=== PATIENT | male | born 1970 | race Caucasian/White ===

== ENCOUNTER → 2019-09-01 13:23 | Outpatient (BNVA) | payer MEDICARE, OTHER, SELFPAY | PROVIDERS: Family Provider Family Medicine; PCP Family Medicine; Visit Provider Anesthesiology | DX: M54.5 Low back pain (principal); M79.651 Pain in right thigh; M79.652 Pain in left thigh; Z79.891 Long term (current) use of opiate analgesic | CPT/HCPCS: 99214 ==

== ENCOUNTER → 2019-09-15 13:12 | Outpatient (BNVA) | payer MEDICARE, OTHER, SELFPAY | PROVIDERS: Family Provider Family Medicine; PCP Family Medicine; Visit Provider Nurse Practitioner | DX: F33.2 Major depressive disorder, recurrent severe without psychotic features (principal); F43.12 Post-traumatic stress disorder, chronic; F41.1 Generalized anxiety disorder | CPT/HCPCS: 99214 ==

== ENCOUNTER → 2019-11-03 08:23 | Outpatient (BNVA) | payer MEDICARE, OTHER, SELFPAY | PROVIDERS: Family Provider Family Medicine; PCP Family Medicine; Visit Provider Nurse Practitioner | DX: F43.12 Post-traumatic stress disorder, chronic (principal); M54.5 Low back pain; F41.1 Generalized anxiety disorder; Z79.891 Long term (current) use of opiate analgesic | CPT/HCPCS: 99214 ==

== ENCOUNTER 2020-01-10 15:29 | Emergency (ER) | payer MEDICARE, OTHER, SELFPAY ==
[2020-01-10 15:32] VITALS: BP 197/86; PULSE 85; RESP 22; TEMP 36.8; O2SAT 99; BMI 51.7
--- NOTE | 2020-01-10 15:49 | XRR_ITS ---
PROCEDURE INFORMATION: Exam: XR Chest, 1 View Exam date and time: 01/10/2020 3:50 PM Age: 49 years old Clinical indication: Dyspnea TECHNIQUE: Imaging protocol: XR of the chest Views: 1 view. COMPARISON: CR Chest 2 views* [id number] 03/15/2019 12:58 PM FINDINGS: Lungs: There is a small calcified granuloma in the left lower lobe which was better seen on the previous study. Lungs are otherwise clear. Pleural space: Unremarkable. No pleural effusion. No pneumothorax. Heart/Mediastinum: Heart is within normal limits of size. Bones/joints: There are postsurgical changes in the cervical spine. XR/XR chest 1V portable [id number] IMPRESSION: No acute infiltrate.
--- NOTE | 2020-01-10 16:01 | ED_ITS ---
HPI - URI/Sore Throat General: Chief Complaint: Upper Respiratory Infection Stated Complaint: sinus problems Time Seen by Provider: 01/10/20 15:32 History of Present Illness: HPI Narrative: Patient states he recently developed a sinus infection. He is seeing Dr. Tineo and was placed on doxycycline. Patient returns to the emergency room today stating that he does not believe the antibiotic is help that he still has symptoms. MD elicited complaint: cough, nasal congestion and sinus pain Consistency: constant Severity: severe Description of mucous: yellow, green and purulent Able to tolerate fluids by mouth: Yes Exacerbating factors: nothing Relieving factors: nothing Associated symptoms: Reports congestion, cough, headache(s), myalgias, nasal congestion and sinus pain Review of Systems General: Reports: 10 or more systems reviewed and unremarkable except in HPI and below ENMT: Reports: nasal congestion and sinus pain Neuro: Reports: headache(s) [facility] ED PFSH: Medical History Encounter for long-term use of opiate analgesic Generalized anxiety disorder Lumbar back pain Opioid contract exists Post-traumatic stress disorder, chronic Surgical History LAP-BAND surgery status Family History Other CAD (coronary artery disease) Cancer Diabetes Hypertension Psychiatric illness Social History Smoking and tobacco status: never smoked Alcohol intake: never History of recent travel: No Physical Exam Const: COMMON NORMALS: no acute distress, healthy appearing and well nourished GENERAL APPEARANCE: cooperative and well developed HENMT: COMMON NORMALS: normocephalic and atraumatic HEAD & SCALP: normal to inspection, normocephalic and atraumatic Eye: GENERAL EYE: appearance normal, both eyes and all related structures Neck/C-Spine: COMMON NORMALS: full ROM, no lymphadenopathy and no meningeal signs GENERAL: Yes normal visual inspection CERVICAL SPINE: Yes cervical ROM normal and Yes normal cervical lordosis Chest: COMMONS NORMALS: normal inspection of the chest and normal palpation of entire chest wall Resp: COMMON NORMALS: normal respiratory effort, clear to auscultation bilaterally and percussion normal AUSCULTATION: clear to auscultation bilaterally PERCUSSION: percussion normal Cardio: COMMON NORMALS: regular rate, regular rhythm, S1 normal heart sound present and S2 normal heart sound present JUGULAR VENOUS DISTENTION: no JVD PALPATION: normal PMI RATE: regular rate RHYTHM: regular rhythm HEART SOUNDS: S1 normal heart sound present and S2 normal heart sound present GI: COMMON NORMALS: Soft to palpation and No hepatosplenomegaly present INSPECTION: Yes normal to inspection PALPATION: Yes Soft to palpation and Yes No hepatosplenomegaly present PERCUSSION: normal to percussion : COMMON NORMALS: Yes no CVA tenderness BLADDER/KIDNEY EXAM: Yes no CVA tenderness Back/Pelvis: COMMON NORMALS: no CVA tenderness, thoracic and lumbar spine normal to inspection and thoraco-lumbar ROM normal Extremity: COMMON NORMALS: normal to inspection, full ROM and capillary refill normal Neuro: MENINGEAL SIGNS: Yes no meningeal signs Skin: COMMON NORMALS: no rashes or lesions noted, no wounds and turgor normal GENERAL SKIN EXAM: no rashes or lesions noted, elasticity normal and turgor normal LESIONS: no lesions RASHES: no rashes TRAUMA: no lacerations or abrasions HAIR: normal NAILS: normal Course Vital Signs: Vital signs: Vital Signs Temperature 98.3 F 01/10/20 15:32 Pulse Rate 85 01/10/20 15:32 Respiratory Rate 22 H 01/10/20 15:32 Blood Pressure 197/86 01/10/20 15:32 Pulse Oximetry 99 01/10/20 15:32 Discharge Plan Discharge Patient Disposition: Home, Self-Care Clinical Impression: Sinusitis Qualifiers: Sinusitis location: other Chronicity: acute Recurrence: recurrent Qualified Code(s): J01.81 - Other acute recurrent sinusitis Condition: Stable Prescriptions: New hydrocodone-acetaminophen 5-325 mg tablet 1 tab PO Q4H PRN (Reason: pain) Qty: 10 RF: 0 No Action lorazepam 0.5 mg tablet 1 mg PO DAILY PRNRF: 0 pregabalin [Lyrica] 200 mg capsule 200 mg PO DAILY RF: 0 metformin 500 mg tablet 500 mg PO BID RF: 0 furosemide [Lasix] 20 mg tablet 20 mg PO DAILY RF: 0 citalopram [Celexa] 40 mg tablet 40 mg PO DAILY Qty: 90 RF: 0 lamotrigine [Lamictal] 200 mg tablet 200 mg PO DAILY Qty: 90 RF: 0 mirtazapine [Remeron] 30 mg tablet 30 mg PO .HS Qty: 90 RF: 0 hydrocodone-acetaminophen 5-325 mg tablet 1 tab PO BID PRN (Reason: pain) 30 Days Qty: 60 RF: 0 hydrocodone-acetaminophen 5-325 mg tablet 1 tab PO BID 30 Days Qty: 60 RF: 0 Discharge Orders: Discharge Order (Routine); Ordered 01/10/20 Ordered By: Jimmie Soria Referrals: Agustina Whiting DO [Primary Care Provider] - Coding Level of Care Code ED Registered Account Administrator for Chg Fwd Exam Comprehensive
[2020-01-10] MEDS: cefTRIAXone 1,000 mg SDV 1000 MG IM (16:21)
[2020-01-10] MEDS: dexamethasone 10 mg/mL INJ IM (16:25)
[2020-01-10 16:42] VITALS: BP 183/90; PULSE 79; RESP 18; O2SAT 95
== END 2020-01-10 16:42 | disposition home or self-care (01) ==
PROVIDERS: Emergency Provider Family Medicine; PCP Family Medicine
DX: J01.81 Other acute recurrent sinusitis (principal)
CPT/HCPCS: 12345; 71045; 96372; 99281; 99283; J0696; J1100

== ENCOUNTER 2020-01-19 23:48 | Emergency (ER) | payer MEDICARE, OTHER, SELFPAY ==
[2020-01-19 23:53] VITALS: BP 180/95; PULSE 106; RESP 18; TEMP 37.3; O2SAT 95; BMI 50.1
--- NOTE | 2020-01-19 23:59 | XR_ITS ---
WS: [id number] RIGHT ANKLE: 3 VIEW(S) TECHNIQUE: AP, oblique(s) and lateral. HISTORY: right ankle pain and injury COMPARISON: 11/26/2014 Normal anatomic alignment with no fracture or dislocation. Well-corticated osseous density at the medial malleolus is similar to the prior study. No acute fract ures. No significant degenerative changes at the joint spaces. Mild edema around the ankle. Enthesopathy at the Achilles tendon. XR/XR ankle RT min 3V* [id number] IMPRESSION: 1. No acute fracture. 2. Mild soft tissue edema around the ankle.
--- NOTE | 2020-01-20 00:01 | ED_ITS ---
HPI - Extremity Problem General: Chief complaint: Extremity Injury, Lower Stated complaint: fall/right foot pain Time Seen by Provider: 01/20/20 00:00 History of Present Illness: HPI Narrative: Patient is a 49-year-old male comes to the ED with right foot and ankle pain. Patient has a past medical history of chronic back pain, diabetes with neuropathy. Patient says pain injury occurred just prior to arrival. He states he was out in his yard and he saw a snake and he was running from a snake and rolled his right foot and ankle. Patient says that he does not feel much pain in his right foot because he has neuropathy there and does not have much sensation to his right foot anyways. He noticed that he was having some swelling in his right foot and that is why he wanted to get it evaluated. Associated symptoms: Deny chest pain, fever(s) or rash Review of Systems Const: Denies: fever(s), chills or fatigue Eyes: Denies: change in vision or eye discomfort ENMT: Denies: throat pain, odynophagia, nasal discharge or nasal congestion Card: Denies: chest pain, palpitations, edema, swelling of feet/ankles, dyspnea on exertion or orthopnea Resp: Denies: dyspnea, productive cough or non-productive cough GI: Denies: abdominal pain, nausea, vomiting, diarrhea, constipation or hematochezia : Denies: flank pain, difficulty urinating, dysuria or hematuria Musc: Reports: extremity pain (mild right foot pain) and joint swelling (ankle and foot swelling after injury); Denies: neck pain, back pain or extremity swelling Skin/Breast: Denies: rash or new lesions Neuro: Denies: headache(s), numbness in extremities or weakness in extremities PFS ED PFSH: Medical History Encounter for long-term use of opiate analgesic Generalized anxiety disorder Lumbar back pain Opioid contract exists Post-traumatic stress disorder, chronic Surgical History LAP-BAND surgery status Family History Other CAD (coronary artery disease) Cancer Diabetes Hypertension Psychiatric illness Social History Smoking and tobacco status: never smoked Alcohol intake: never History of recent travel: No Physical Exam Const: COMMON NORMALS: no acute distress, patient oriented x3 and alert GENERAL APPEARANCE: cooperative and comfortable NUTRITIONAL APPEARANCE: obese HENMT: COMMON NORMALS: normocephalic HEAD & SCALP: normocephalic MOUTH: Normal oral and palatal mucosa present THROAT: posterior oropharynx normal and uvula midline Eye: COMMON NORMALS: Equal, round and reactive pupils present PUPIL: Yes Equal, round and reactive pupils present Neck/C-Spine: COMMON NORMALS: supple GENERAL: Yes normal visual inspection Resp: COMMON NORMALS: normal respiratory effort, No retractions, No use of accessory muscles and clear to auscultation bilaterally AUSCULTATION: clear to auscultation bilaterally Cardio: COMMON NORMALS: regular rate, regular rhythm, S1 normal heart sound present, S2 normal heart sound present, No gallops present (Cardio), No clicks present (Cardio), No murmurs present (Cardio) and Peripheral pulses 2+ throughout RATE: regular rate RHYTHM: regular rhythm HEART SOUNDS: S1 normal heart sound present and S2 normal heart sound present PERIPHERAL PULSES: Peripheral pulses 2+ throughout GI: COMMON NORMALS: Normal to inspection, nondistended, normoactive bowel sounds present, Soft to palpation, non-tender and no masses INSPECTION: Yes central obesity PALPATION: Yes Soft to palpation : COMMON NORMALS: Yes no CVA tenderness BLADDER/KIDNEY EXAM: Yes no CVA tenderness Back/Pelvis: COMMON NORMALS: no CVA tenderness Extremity: RIGHT LOWER EXTREMITY: Yes foot & digits Right ankle: Yes inspection (Medial side of ankle has some swelling. No visible deformity seen.), Yes palpation (Denies tenderness due to neuropathy.), Yes ROM (Fall) and Yes neurovascular exam (Pedal pulse 2+, poor sensation to feet due to neuropathy.) Neuro: COMMON NORMALS: patient oriented x3 and moves all extremities SENSORIUM/ORIENTATION: Yes alert Skin: COMMON NORMALS: no rashes or lesions noted GENERAL SKIN EXAM: no rashes or lesions noted and dry skin Course Vital Signs: Vital signs: Vital Signs Temperature 99.2 F 01/19/20 23:53 Pulse Rate 80 01/20/20 01:45 Respiratory Rate 19 H 01/20/20 01:45 Blood Pressure 176/83 01/20/20 01:45 Pulse Oximetry 96 01/20/20 01:45 MDM - Extremity (Nontraumatic) MDM Narrative: Medical decision making narrative: Patient is a 49-year-old male comes to the ED with right foot and ankle pain. Patient had an injury where he rolled his right foot. He has a past medical history of diabetes and diabetic neuropathy of both feet. Physical exam shows some swelling over the medial aspect of foot, and particularly over the medial malleolus area. Patient has no tenderness upon palpation to the neuropathy. X-ray of right ankle showed nondisplaced medial malleolus fracture of the tibia. Patient was then put in a short leg posterior splint and given crutches to help with ambulation. I placed an order with case management for patient to get Ortho referral. Patient was told to have no weightbearing until seen by Ortho. He currently has a prescription for hydrocodone and was told to continue taking that prescription as previously prescribed for pain. Patient understood and agreed with plan. Imaging Data^: Xray Ortho: Attestation: I personally reviewed and interpreted this imaging study as follows: My impression: Right foot x-ray showed no acute findings. Right ankle x-ray showed possible medial malleolus nondisplaced fracture. Pending final radiology report. Discharge Plan Discharge Patient Disposition: Home, Self-Care Clinical Impression: Fracture of medial malleolus of tibia Qualifiers: Encounter type: initial encounter Fracture type: closed Fracture alignment: nondisplaced Laterality: right Qualified Code(s): S82.54XA - Nondisplaced fracture of medial malleolus of right tibia, initial encounter for closed fracture Condition: Stable Prescriptions: No Action lorazepam 0.5 mg tablet 1 mg PO DAILY PRNRF: 0 pregabalin [Lyrica] 200 mg capsule 200 mg PO DAILY RF: 0 metformin 500 mg tablet 500 mg PO BID RF: 0 furosemide [Lasix] 20 mg tablet 20 mg PO DAILY RF: 0 citalopram [Celexa] 40 mg tablet 40 mg PO DAILY Qty: 90 RF: 0 lamotrigine [Lamictal] 200 mg tablet 200 mg PO DAILY Qty: 90 RF: 0 mirtazapine [Remeron] 30 mg tablet 30 mg PO .HS Qty: 90 RF: 0 hydrocodone-acetaminophen 5-325 mg tablet 1 tab PO BID PRN (Reason: pain) 30 Days Qty: 60 RF: 0 hydrocodone-acetaminophen 5-325 mg tablet 1 tab PO BID 30 Days Qty: 60 RF: 0 hydrocodone-acetaminophen 5-325 mg tablet 1 tab PO Q4H PRN (Reason: pain) Qty: 10 RF: 0 Discharge Orders: Discharge Order (Routine); Ordered 01/20/20 Ordered By: Torrey Walter Referrals: Agustina Whiting DO [Primary Care Provider] - Discharge Diet: Regular Discharge Activity: Limit activity as instructed Patient Instructions: Ankle Fracture (ED) Activity Restrictions/Additional Instructions: [facility] [place] clinic or case management should be contacting you in the next several days to set up an appointment. Use crutches and do not bear weight on right foot until seen by orthopedic doctor. Continue home medications as prescribed including previously prescribed hydrocodone to help with pain. Return to the ER or your medical provider if condition worsens. Please read and understand discharge instructions. If any questions, please ask. Discharge Date/Time: 01/20/20 01:49 Coding Level of Care Code ED Recreation Center Director for Carito Fwkadie Exam Comprehensive
--- NOTE | 2020-01-20 00:06 | XR_ITS ---
WS: [id number] RIGHT FOOT: 3 VIEW(S) TECHNIQUE: AP, oblique and lateral. HISTORY: right foot pain and injury COMPARISON: 11/03/2013 No acute fracture or dislocation. Mild hallux valgus. Normal tarsal/metatarsal alignment. No soft tissue abnormality or bone destruction. XR/XR foot RT min 3V* [id number] IMPRESSION: No acute fracture identified.
[2020-01-20 01:45] VITALS: BP 176/83; PULSE 80; RESP 19; O2SAT 96
--- NOTE | 2020-01-21 08:23 | DCPLANNER ---
Case manage had message to schedule a follow up appointment for patient with ortho. dietary services manager called the ortho clinic, spoke with Shani, gave clinic patients information. dietary services manager was told that patients information would be printed and reviewed. Clinic will call patient with appointment information.
--- NOTE | 2020-02-04 11:52 | DCPLANNER ---
Patient did attend appointment scheduled with ortho.
== END 2020-01-20 01:49 | disposition home or self-care (01) ==
PROVIDERS: Emergency Provider Physician Assistant; PCP Family Medicine
DX: S82.54XA Nondisplaced fracture of medial malleolus of right tibia, initial encounter for closed fracture (principal); X50.1XXA Overexertion from prolonged static or awkward postures, initial encounter; E11.40 Type 2 diabetes mellitus with diabetic neuropathy, unspecified
CPT/HCPCS: 12345; 29515; 73610; 73630; 99281; 99283

== ENCOUNTER → 2020-02-01 08:20 | Outpatient (BNVA) | payer MEDICARE, OTHER, SELFPAY | PROVIDERS: PCP Family Medicine; Referring Provider Physician Assistant; Visit Provider Podiatrist Foot & Ankle Surgery | DX: M25.571 Pain in right ankle and joints of right foot (principal) | CPT/HCPCS: 73610 ==

== ENCOUNTER → 2020-03-09 09:40 | Outpatient (BNVA) | payer MEDICARE, OTHER, SELFPAY | PROVIDERS: PCP Family Medicine; Visit Provider Nurse Practitioner | DX: F43.12 Post-traumatic stress disorder, chronic (principal); F41.1 Generalized anxiety disorder | CPT/HCPCS: 99213 ==

== ENCOUNTER 2020-05-14 23:16 | Emergency (ER) | payer MEDICARE, OTHER, SELFPAY ==
[2020-05-14 23:22] VITALS: BP 191/114; PULSE 122; RESP 32; TEMP 36.5; O2SAT 95; BMI 51.7
[2020-05-14 23:40] VITALS: BP 169/76; PULSE 90; RESP 33; O2SAT 95
[2020-05-15] VITALS (8 sets, daily range): BP systolic 109–169; BP diastolic 48–95; PULSE 82–95; RESP 13–31; TEMP 36.7; O2SAT 93–98
--- NOTE | 2020-05-15 | XRR_ITS ---
PROCEDURE INFORMATION: Exam: XR Chest, 1 View Exam date and time: 05/15/2020 12:25 AM Age: 49 years old Clinical indication: Cough and shortness of breath; Additional info: SOB TECHNIQUE: Imaging protocol: XR of the chest Views: 1 view. COMPARISON: CR XR chest 1V portable [id number] 01/10/2020 4:01 PM FINDINGS: Lungs: No consolidation. Pleural space: No pleural effusion. No pneumothorax. Heart/Mediastinum: No cardiomegaly. Bones/joints: Postop change of the cervical spine. XR/XR chest 1V portable [id number] IMPRESSION: 1. No acute cardiopulmonary disease demonstrated. 2. There is no interval change from the prior examination.
--- NOTE | 2020-05-15 | ECG_ITS ---
[facility] Test Date: 2020-05-14 Pat Name: Sergei Lucas Department: Room: Gender: Male [employer]: : 1970 Requested By: Remy Hirsch Order Number: [id number] Sergio MD: CRISTIAN HENRY Measurements Intervals [place] Rate: 99 P: 50 IL: 141 QRS: 11 QRSD: 97 T: 71 QT: 341 QTc: 439 Interpretive Statements SINUS RHYTHM POSSIBLE ANTERIOR MYOCARDIAL INFARCTION , OF INDETERMINATE AGE [30 ms Q WAVE IN V3/V4, OR R < 0.2 mV IN V4] Compared to ECG 03/15/2019 12:26:40 Myocardial infarct finding now present T-wave abnormality no longer present Electronically Signed On 05-15-2020 19:35:48 VEHICLE MAINTENANCE TECHNICIAN by CRISTIAN HENRY [id number]
[2020-05-15] MEDS: fentaNYL 50 mcg/mL INJ 2mL IVP (00:29)
[2020-05-15 00:35] LABS: Basophils # 0.1 10^3/uL (0.0-0.1); Basophils % 0.7 %; Eosinophils # 0.3 10^3/uL (0.0-0.8); Eosinophils % 2.6 %; Hematocrit 41.9 % (42.0-52.0); Hemoglobin 13.6 g/dL (11.7-16.6); Lymphocytes # 2.9 10^3/uL (0.8-4.8); Lymphocytes % 26.4 %; Mean Corpuscular HGB Conc 32.5 g/dL (30.0-36.0); Mean Corpuscular Hemoglobin 29.2 pg (28.0-34.0); Mean Corpuscular Volume 90.1 fL (80-94); Mean Platelet Volume 10.3 fL (7.4-10.4); Monocytes # 0.6 10^3/uL (0.2-0.9); Monocytes % 5.7 %; Neutrophils # 7.14 10^3/uL (1.8-7.7); Nucleated Red Blood Cells % 0 %; Platelet Count 257 10^3/cmm (130-400); Red Blood Count 4.65 10^6/uL (4.1-5.3); Red Cell Distribution Width 13.8 % (12.1-15.1); White Blood Count 11.2 10^3/uL (4.0-10.0)
[2020-05-15] MEDS: bumetanide 0.25 mg/mL SDV 10 mL 2 MG IV (00:35)
[2020-05-15 00:59] LABS: Troponin(5th) Baseline 18 ng/L (0-15)
--- NOTE | 2020-05-15 01:00 | ECG_ITS ---
[facility] Test Date: 2020-05-15 Pat Name: Sergei Lucas Department: Room: Gender: Male Brim Stitcher: : 1970 Requested By: Remy Hirsch Order Number: [id number] Reading MD: CRISTIAN HENRY Measurements Intervals [place] Rate: 89 P: 54 MD: 150 QRS: 31 QRSD: 91 T: 83 QT: 357 QTc: 436 Interpretive Statements SINUS RHYTHM NONSPECIFIC T-WAVE ABNORMALITY Compared to ECG 05/14/2020 23:30:08 T-wave abnormality now present Myocardial infarct finding no longer present Electronically Signed On 05-15-2020 19:36:23 COURIER by CRISTIAN HENRY [id number]
[2020-05-15 01:08] LABS: Alanine Aminotransferase 25 U/L (0-41); Albumin Level 3.8 g/dL (3.5-5.2); Alkaline Phosphatase 99 IU/L (40-130); Anion Gap 13.8 (5-19); Aspartate Amino Transferase 21 U/L (0-40); Blood Urea Nitrogen 13 mg/dL (6-20); Calcium 8.6 mg/dL (8.5-10.5); Carbon Dioxide 28 mmol/L (22-29); Chloride 105 mmol/L (98-107); Creatine Phosphokinase 199 U/L (39-308); Globulin 2.2 g/dL (1.3-4.6); Glomerular Filtration Rate 64.4 mL/min (90-130); Glucose 261 mg/dL (65-115); NT Pro B Type Natriuretic Pept 52 pg/mL (0-125); Osmolality Calculated 305 mOsm/kg (285-295); Potassium 3.8 mmol/L (3.5-5.1); Sodium 143 mmol/L (136-145); Total Bilirubin 0.2 mg/dL (0.15-1.2)
--- NOTE | 2020-05-15 01:10 | PC.NURSE ---
Helped patient to get up to stand at bedside to provide urine sample. Patient went from breathing 22 times per minute to 41 times per minute.
[2020-05-15 01:11] LABS: Troponin 5 2HR 17.32 ng/L (0-15)
--- NOTE | 2020-05-15 01:12 | PC.NURSE ---
Patient has been able to urinate 1000mL since administration of Bumex. Post void residual is from 270-300mL.
[2020-05-15 01:19] LABS: Troponin 5 2HR Delta -0.68 ABS# (0-10)
[2020-05-15 01:28] LABS: Bilirubin Urine Neg (Negative); Blood Urine Neg (Negative); Glucose Urine UA Norm (Normal); Ketones Urine Negative (Negative); Leukocyte Esterase Urine Negative (Negative); Nitrate Urine Negative (Negative); Protein Urine Trace (Negative); Urine Appearance Clear (CLEAR); Urine Color Straw (Yellow); Urobilinogen Urine Norm (Negative); pH Urine 5 (5-7)
[2020-05-15 01:29] LABS: Add Urine Microscopic? YES
--- NOTE | 2020-05-15 01:34 | ED_ITS ---
HPI - SOB/Dyspnea General: Chief Complaint: Shortness of Breath/Dyspnea Stated Complaint: SOB, SWELLING Time Seen by Provider: 05/14/20 23:35 History of Present Illness: HPI Narrative: 49-year-old male with a history of lower extremity edema. He presents with shortness of breath and worsening edema for the past couple of days. He notes he can only walk a short distance before getting short of breath, and his legs are swollen and painful. He was seen at a n outside facility yesterday, but worsened today. He also notes that despite taking increased doses of his water pill , he has not urinated much. He feels like he has to force his urine. MD elicited complaint: shortness of breath Onset (ago): day(s) Timing: intermittent Severity: moderate Exacerbating factors: exertion and talking Relieving factors: rest Known history of: diabetes Associated symptoms: Reports chest pain and extremity pain (Bilateral); Deny dizziness, fever(s), nausea, palpitations or vomiting Treatment prior to arrival: other Review of Systems Const: Denies: fever(s) Eyes: Denies: change in vision or blurry vision ENMT: Denies: odynophagia, bleeding gums, change in hearing or sinus pain Card: Reports: chest pain; Denies: palpitations Resp: Reports: dyspnea and non-productive cough; Denies: productive cough or wheezing GI: Denies: nausea or vomiting : Denies: difficulty urinating or hematuria Musc: Reports: extremity pain (Bilateral) Skin/Breast: Denies: rash or erythema Neuro: Denies: headache(s), dizziness or seizure-like activity Psych: Denies: anxiety PFS ED PFSH: Medical History (Updated 05/15/20 @ 03:00 by Remy Dillon DO) Encounter for long-term use of opiate analgesic Generalized anxiety disorder Lumbar back pain Opioid contract exists Post-traumatic stress disorder, chronic Surgical History LAP-BAND surgery status Family History Other CAD (coronary artery disease) Cancer Diabetes Hypertension Psychiatric illness Social History Smoking and tobacco status: never smoked Alcohol intake: never History of recent travel: No Physical Exam Const: GENERAL APPEARANCE: well developed ORIENTATION/CONSCIOUSNESS: Yes oriented to person, Yes oriented to place and Yes oriented to time HENMT: COMMON NORMALS: normocephalic, external ears normal and Normal external nose present HEAD & SCALP: normocephalic FACE & SINUS: normal facial exam NOSE: Normal external nose present and No nasal discharge present EXTERNAL EAR: Yes external ears normal Eye: COMMON NORMALS: Equal, round and reactive pupils present, EOMs intact bilaterally and conjunctivae normal EYELID: eyelids normal CONJUNCTIVA: Yes conjunctivae normal PUPIL: Yes Equal, round and reactive pupils present Neck/C-Spine: GENERAL: No tracheal deviation Chest: COMMONS NORMALS: normal inspection of the chest CHEST: No tenderness Resp: COMMON NORMALS: clear to auscultation bilaterally EFFORT & INSPECTION: Yes tachypneic, No respiratory distress, No retractions, No uses accessory muscles and No tracheal deviation AUSCULTATION: clear to auscultation bilaterally, no rhonchi, no wheezes and lung sounds not diminished Cardio: COMMON NORMALS: regular rate and regular rhythm RATE: regular rate and tachycardic RHYTHM: regular rhythm HEART SOUNDS: no murmurs PERIPHERAL PULSES: radial pulses present GI: INSPECTION: No abdominal distension AUSCULTATION: No Hyperactive bowel sounds present and No Hypoactive bowel sounds present PALPATION: No Guarding due to palpation present (GI) and No Rigid due to palpation PERCUSSION: no dullness to percussion and no tympanic to percussion Neuro: SENSORIUM/ORIENTATION: Yes oriented to person, Yes oriented to place and Yes oriented to time Psych: COMMON NORMALS: mental status grossly normal Skin: COMMON NORMALS: no rashes or lesions noted GENERAL SKIN EXAM: no rashes or lesions noted Course Vital Signs: Vital signs: Vital Signs Temperature 98.0 F 05/15/20 03:15 Pulse Rate 82 05/15/20 03:15 Respiratory Rate 25 H 05/15/20 03:15 Blood Pressure 141/62 05/15/20 03:15 Pulse Oximetry 98 05/15/20 03:15 MDM - SOB/Dyspnea MDM Narrative: Medical decision making narrative: 49-year-old male with lower extremity edema and shortness of breath. He had some chest discomfort as well. His troponin was minimally elevated, and did not rise at 2 hours. His EKG shows no acute ST changes. His BNP is essentially normal. His chest x-ray is unchanged from prior, and shows no acute changes. His D-dimer is not significan tly elevated. He has not had a fever. He was quite hypertensive on arrival with blood pressures in the 190s. He was given Bumex IV, nitro placed, and IV EVERARDO inhibitor. His blood pressure is currently 141/62. Heart rate 84. He satting 96% on room air. He is much more comfortable. He is put out over a liter of urine. His white blood cell count is minimally elevated at 11.2. He will be allowed home with double his normal Lasix dose for the next 3 days, will add EVERARDO inhibitor for stricter control of his blood pressure, and have him take pressures twice daily. He knows to return for any worsening symptoms. Lab Data: Labs: Lab Results 05/15/20 05/15/20 05/15/20 Range/Units 00:20 00:20 00:20 WBC 11.2 H (4.0-10.0) 10^3/ uL RBC 4.65 (4.1-5.3) 10^6/u L Hgb 13.6 (11.7-16.6) g/dL Hct 41.9 L (42.0-52.0) % MCV 90.1 (80-94) fL MCH 29.2 (28.0-34.0) pg MCHC 32.5 (30.0-36.0) g/dL RDW 13.8 (12.1-15.1) % Plt Count 257 (130-400) 10^3/c mm MPV 10.3 (7.4-10.4) fL Neut % (Auto) 64.0 % Lymph % (Auto) 26.4 % [place] % (Auto) 5.7 % Eos % (Auto) 2.6 % Baso % (Auto) 0.7 % Neut # (Auto) 7.14 (1.8-7.7) 10^3/u L Lymph # (Auto) 2.9 (0.8-4.8) 10^3/u L [place] # (Auto) 0.6 (0.2-0.9) 10^3/u L Eos # (Auto) 0.3 (0.0-0.8) 10^3/u L Baso # (Auto) 0.1 (0.0-0.1) 10^3/u L Nucleated RBC % (a uto) 0 % Nucleated RBCs # 0.0 /100WBC D-Dimer (0-0.59) ug/mIFE U Sodium 143 (136-145) mmol/L Potassium 3.8 (3.5-5.1) mmol/L Chloride 105 (98-107) mmol/L Carbon Dioxide 28 (22-29) mmol/L Anion Gap 13.8 (5-19) BUN 13 (6-20) mg/dL Creatinine 1.2 (0.7-1.2) mg/dL GFR Calculation 64.4 L (90-130) mL/min Glucose 261 H (65-115) mg/dL Calculated Osmolal ity 305 H (285-295) mOsm/k g Calcium 8.6 (8.5-10.5) mg/dL Total Bilirubin 0.2 (0.15-1.2) mg/dL AST 21 (0-40) U/L ALT 25 (0-41) U/L Alkaline Phosphata se 99 (40-130) IU/L Creatine Kinase 199 (39-308) U/L Troponin T Baselin e 18 H (0-15) ng/L Troponin T 120 Min [place] (0-15) ng/L Delta Troponin T (0-10) ABS# NT-Pro-B Natriuret Pep 52 (0-125) pg/mL Total Protein 6.0 L (6.6-8.7) g/dL Albumin 3.8 (3.5-5.2) g/dL Globulin 2.2 (1.3-4.6) g/dL Urine Color (Yellow) Urine Appearance (CLEAR) Urine pH (5-7) Ur Specific Gravit y (1.005-1.030) Urine Protein (Negative) Urine Glucose (UA) (Normal) Urine Ketones (Negative) Urine Blood (Negative) Urine Nitrate (Negative) Urine Bilirubin (Negative) Urine Urobilinogen (Negative) mg/dL Ur Leukocyte Karime ase (Negative) Urine RBC (0-2) /hpf Urine WBC (0-5) /hpf Ur Squamous Epith Cells (0-5) /hpf Amorphous Sediment Urine Bacteria (NONE) /hpf 05/15/20 05/15/20 05/15/20 Range/Units 00:20 01:06 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 WBC (4.0-10.0) 10^3/ uL RBC (4.1-5.3) 10^6/u L Hgb (11.7-16.6) g/dL Hct (42.0-52.0) % MCV (80-94) fL MCH (28.0-34.0) pg MCHC (30.0-36.0) g/dL RDW (12.1-15.1) % Plt Count (130-400) 10^3/c mm MPV (7.4-10.4) fL Neut % (Auto) % Lymph % (Auto) % [place] % (Auto) % Eos % (Auto) % Baso % (Auto) % Neut # (Auto) (1.8-7.7) 10^3/u L Lymph # (Auto) (0.8-4.8) 10^3/u L [place] # (Auto) (0.2-0.9) 10^3/u L Eos # (Auto) (0.0-0.8) 10^3/u L Baso # (Auto) (0.0-0.1) 10^3/u L Nucleated RBC % (a uto) % Nucleated RBCs # /100WBC D-Dimer 0.57 (0-0.59) ug/mIFE U Sodium (136-145) mmol/L Potassium (3.5-5.1) mmol/L Chloride (98-107) mmol/L Carbon Dioxide (22-29) mmol/L Anion Gap (5-19) BUN (6-20) mg/dL Creatinine (0.7-1.2) mg/dL GFR Calculation (90-130) mL/min Glucose (65-115) mg/dL Calculated Osmolal ity (285-295) mOsm/k g Calcium (8.5-10.5) mg/dL Total Bilirubin (0.15-1.2) mg/dL AST (0-40) U/L ALT (0-41) U/L Alkaline Phosphata se (40-130) IU/L Creatine Kinase (39-308) U/L Troponin T Baselin e (0-15) ng/L Troponin T 120 Min [place] 17.32 H (0-15) ng/L Delta Troponin T -0.68 L (0-10) ABS# NT-Pro-B Natriuret Pep (0-125) pg/mL Total Protein (6.6-8.7) g/dL Albumin (3.5-5.2) g/dL Globulin (1.3-4.6) g/dL Urine Color Straw (Yellow) Urine Appearance Clear (CLEAR) Urine pH 5 (5-7) Ur Specific Gravit y 1.010 (1.005-1.030) Urine Protein Trace (Negative) Urine Glucose (UA) Norm (Normal) Urine Ketones Negative (Negative) Urine Blood Neg (Negative) Urine Nitrate Negative (Negative) Urine Bilirubin Neg (Negative) Urine Urobilinogen Norm (Negative) mg/dL Ur Leukocyte Karime ase Negative (Negative) Urine RBC 0-4 H (0-2) /hpf Urine WBC 0-4 H (0-5) /hpf Ur Squamous Epith Cells 5-10 H (0-5) /hpf Amorphous Sediment Not Reportable Urine Bacteria Trace (NONE) /hpf Discharge Plan Discharge Patient Disposition: Home Clinical Impression: Bilateral lower extremity edema Hypertension Qualifiers: Hypertension type: essential hypertension Qualified Code(s): I10 - Essential (primary) hypertension Condition: Stable Prescriptions: New lisinopril 20 mg tablet 20 mg PO DAILY Qty: 30 RF: 0 Lasix 20 mg tablet 20 mg PO DAILY Qty: 30 RF: 0 No Action lorazepam 0.5 mg tablet 1 mg PO DAILY PRNRF: 0 pregabalin [Lyrica] 200 mg capsule 200 mg PO DAILY RF: 0 metformin 500 mg tablet 500 mg PO BID RF: 0 furosemide [Lasix] 20 mg tablet 20 mg PO DAILY RF: 0 hydrocodone-acetaminophen 5-325 mg tablet 1 tab PO BID PRN (Reason: pain) 30 Days Qty: 60 RF: 0 hydrocodone-acetaminophen 5-325 mg tablet 1 tab PO BID 30 Days Qty: 60 RF: 0 citalopram [Celexa] 40 mg tablet 40 mg PO DAILY Qty: 90 RF: 0 mirtazapine [Remeron] 30 mg tablet 30 mg PO .HS Qty: 90 RF: 0 lamotrigine [Lamictal] 200 mg tablet 200 mg PO DAILY Qty: 90 RF: 0 hydrocodone-acetaminophen 5-325 mg tablet 1 tab PO Q4H PRN (Reason: pain) Qty: 10 RF: 0 Discharge Orders: Discharge Order (Routine); Ordered 05/15/20 Ordered By: Remy Dillon Referrals: Agustina Whiting DO [Primary Care Provider] - 4-7 days Discharge Diet: Advance as tolerated and Diabetic Discharge Activity: Increase activity as tolerated Patient Instructions: Leg Edema (ED), Hypertension (ED) Activity Restrictions/Additional Instructions: Double your furosemide dose for the next 3 days, then back to 20 mg daily. New medication as directed daily. Monitor your blood pressure twice a day, and report numbers to your physician. Return for worsening shortness of breath despite treatment, fever greater than 100, chest discomfort, other concerning symptoms. 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
[2020-05-15] MEDS: enalaprilat 1.25 mg/mL Inj IVP (01:46)
[2020-05-15 01:51] LABS: RBC Urine 0-4 /hpf (0-2); WBC Urine 0-4 /hpf (0-5)
[2020-05-15 01:52] LABS: Add Urine Culture? No; Bacteria Urine TRACE /hpf
[2020-05-15] MEDS: nitroglycerin 1 gm/inch oint Pkt 1.5 INCH TOPICAL (01:57)
[2020-05-15] MEDS: FUROsemide 10 mg/mL SDV 4mL 40 MG IVP (02:12)
[2020-05-15 02:52] LABS: D Dimer 0.57 ug/mIFEU (0-0.59)
== END 2020-05-15 03:15 | disposition home or self-care (01) ==
PROVIDERS: Emergency Provider Emergency Medicine; PCP Family Medicine
DX: I10 Essential (primary) hypertension (principal); R60.0 Localized edema; Z79.84 Long term (current) use of oral hypoglycemic drugs
CPT/HCPCS: 12345; 36415; 71045; 80053; 81001; 82550; 83880; 84484; 85025; 85378; 93005; 96374; 96375; 96376; 99284; J1940; J3010; J3490

== ENCOUNTER 2020-06-20 19:43 | Emergency (ER) | payer MEDICARE, OTHER, SELFPAY ==
--- NOTE | 2020-06-20 19:48 | XR_ITS ---
WS: [id number] XR chest 1V portable [id number] REASON FOR EXAM: Chest pain FINDINGS: Mild cardiac enlargement. No active pulmonary parenchymal pleural disease. Spinal hardware in the lower cervical spine. Bony thorax is otherwise unremarkable. XR/XR chest 1V portable [id number] IMPRESSION: No acute chest abnormality.
[2020-06-20 19:49] VITALS: BP 191/102; PULSE 74; RESP 20; TEMP 36.8; O2SAT 97; BMI 52.0
--- NOTE | 2020-06-20 19:50 | ECG_ITS ---
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 Measurements Intervals [place] Rate: 70 P: 56 NE: 147 QRS: 22 QRSD: 102 T: 75 QT: 397 QTc: 430 Interpretive Statements SINUS RHYTHM NONSPECIFIC T-WAVE ABNORMALITY Compared to ECG 05/15/2020 01:23:15 No significant changes Electronically Signed On 06-21-2020 17:11:59 [employer]DEL [employer] by Britney Zamarripa M.D. [id number]
--- NOTE | 2020-06-20 20:03 | W.ED.CHESTPA ---
HPI - Chest Pain General: Chief Complaint: Chest Pain Stated Complaint: CP Time Seen by Provider: 06/20/20 19:47 Source: patient and EMS Mode of arrival: EMS Limitations: no limitations History of Present Illness: HPI narrative: Mr. Lucas is a very nice 50-year-old male who comes in complaining of chest pain. He indicates toward the right side of his chest. He states he was at home at rest when he felt like something was out of place in his chest. Pressed on the affected side and got sharp right-sided chest pains thereafter. Pain does not radiate. He does have some shortness of breath and has pain when he takes a deep breath. Denies cough, fever, nausea or vomiting, diaphoresis or any other related symptoms. Patient denies history of cardiac disease or DVT/PE. He states that he is never had anything like this before or anything similar to this in the past. EMS stated that they can reproduce the pain with palpation of his chest but still further algorithms gave aspirin and nitroglycerin. Patient does not relate whether he got any relief with this or not. Associated symptoms: Reports dyspnea; Deny abdominal pain, diaphoresis, fever(s), nausea, palpitations, syncope or vomiting Review of Systems Const: Denies: fever(s), chills, body aches, fatigue, malaise or diaphoresis Eyes: Denies: change in vision, blurry vision, photophobia, eye discomfort, eye discharge, eye redness or yellow eyes ENMT: Denies: throat pain, odynophagia, hoarseness, swelling of lips/tongue, ear or mastoid pain, ear discharge, change in hearing or nasal discharge Card: Reports: chest pain; Denies: palpitations, irregular heart rhythm, edema, lightheadedness, syncope, pre-syncope, dyspnea on exertion or orthopnea Resp: Reports: dyspnea; Denies: productive cough, non-productive cough, wheezing, hemoptysis or chest congestion GI: Denies: abdominal pain, nausea, vomiting, hematemesis, coffee ground emesis, heartburn, diarrhea, constipation, GI cramping, hematochezia or melena : Denies: flank pain, dysuria, urinary frequency, urinary urgency or hematuria Musc: Denies: neck pain, back pain, extremity pain, extremity swelling, joint pain, joint swelling, joint redness, joint warmth or joint stiffness Skin/Breast: Denies: rash, pruritus, erythema, skin pain or skin tenderness Neuro: Denies: headache(s), numbness in extremities, weakness in extremities, sensory changes, lack of coordination, difficulty walking, dizziness, vertigo, confusion, Slurred speech present or seizure-like activity Sukumar/Lymph: Denies: easy bruising, easy bleeding, petechiae, purpura or enlarged lymph nodes All/Imm: Denies: urticaria, throat swelling, tongue swelling, facial swelling or acute wheezing PFSH ED PFSH: Medical History (Updated 06/20/20 @ 21:18 by Senait Corcoran) Encounter for long-term use of opiate analgesic Generalized anxiety disorder Lumbar back pain Opioid contract exists Post-traumatic stress disorder, chronic Surgical History LAP-BAND surgery status Family History Other CAD (coronary artery disease) Cancer Diabetes Hypertension Psychiatric illness Social History Smoking and tobacco status: never smoked Alcohol intake: never History of recent travel: No Physical Exam Const: COMMON NORMALS: no acute distress, patient oriented x3, no limitations and alert GENERAL APPEARANCE: cooperative HENMT: COMMON NORMALS: normocephalic, atraumatic, external ears normal, EAC's normal and Normal external nose present HEAD & SCALP: normal to inspection, normocephalic and atraumatic FACE & SINUS: normal facial exam and face symmetric NOSE: Normal external nose present and Normal nares present EXTERNAL EAR: Yes external ears normal EXTERNAL AUDITORY CANAL: EAC's normal MOUTH: Normal oral and palatal mucosa present, lip normal and tongue normal Eye: COMMON NORMALS: Equal, round and reactive pupils present and conjunctivae normal GENERAL EYE: appearance normal, both eyes and all related structures ALIGNMENT: Yes alignment normal PERIORBITAL: periorbital findings normal EYELID: eyelids normal CONJUNCTIVA: Yes conjunctivae normal SCLERA: sclerae normal PUPIL: Yes Equal, round and reactive pupils present Neck/C-Spine: COMMON NORMALS: full ROM, no lymphadenopathy, supple, no meningeal signs and no JVD GENERAL: Yes normal visual inspection and Yes trachea midline Chest: COMMONS NORMALS: normal inspection of the chest and normal palpation of entire chest wall Resp: COMMON NORMALS: normal respiratory effort, No retractions, No use of accessory muscles and clear to auscultation bilaterally EFFORT & INSPECTION: Yes able to speak in complete sentences and Yes symmetric chest movement AUSCULTATION: clear to auscultation bilaterally, no crackles, no rales, no rhonchi and no wheezes Cardio: COMMON NORMALS: no JVD, regular rate, regular rhythm, S1 normal heart sound present and S2 normal heart sound present RATE: regular rate RHYTHM: regular rhythm HEART SOUNDS: S1 normal heart sound present, S2 normal heart sound present, no click, no gallops, no murmurs and no rubs GI: COMMON NORMALS: Soft to palpation and No hepatosplenomegaly present PALPATION: Yes Soft to palpation, No Tenderness to palpation present (GI), No Guarding due to palpation present (GI), No Rigid due to palpation, Yes No hepatosplenomegaly present, No Hernia present, No Palpable mass present and No Pulsatile mass present : COMMON NORMALS: Yes no CVA tenderness BLADDER/KIDNEY EXAM: Yes no CVA tenderness Back/Pelvis: COMMON NORMALS: no CVA tenderness, thoracic and lumbar spine normal to inspection, no thoracic nor lumbar tenderness and thoraco-lumbar ROM normal Extremity: COMMON NORMALS: normal to inspection, full ROM, capillary refill normal, no joint enlargement, no clubbing, cyanosis or edema and no calf tenderness Neuro: COMMON NORMALS: patient oriented x3, CN's II-XII intact bilaterally, moves all extremities, no focal motor deficits and no sensory deficits noted SENSORIUM/ORIENTATION: Yes alert MENINGEAL SIGNS: Yes no meningeal signs SPEECH: speech normal Psych: COMMON NORMALS: mental status grossly normal, Normal thought process present, cooperative, normal affect, speech normal and activity/motor behavior normal SPEECH: Yes normal speech THOUGHT PROCESS: Normal thought process present Skin: COMMON NORMALS: no rashes or lesions noted, turgor normal, no jaundice, no petechiae and no mottling GENERAL SKIN EXAM: no rashes or lesions noted and turgor normal Course Vital Signs: Vital signs: Vital Signs Temperature 98.2 F 06/20/20 19:49 Pulse Rate 71 06/20/20 22:21 Respiratory Rate 16 06/20/20 22:21 Blood Pressure 168/75 06/20/20 22:21 Pulse Oximetry 94 06/20/20 22:21 MDM - Chest Pain MDM Narrative: Medical decision making narrative: 2114 -the patient's pain is completely resolved at this time. Patient gives further history that he has had pain like this all his life and usually when he can pop the ribs in that area which he was trying to do tonight he will have resolution of his symptoms. Tonight what was different was he had sharp pains that followed thereafter. They have resolved gradually on their own. Patient states he has no further pain and no other symptoms. His pain was very atypical in nature. His first EKG and troponin are unremarkable as well as his D-dimer. I have recommended and offered to keep him for another EKG and troponin mostly for his risk factors but he refuses. He states he is feeling better he is insistent upon going home. The patient has been warned but he is also been welcomed to return. Lab Data: Labs: Lab Results 06/20/20 06/20/20 06/20/20 Range/Units 20:15 20:15 20:15 WBC 11.1 H (4.0-10.0) 10^3/ uL RBC 4.50 (4.1-5.3) 10^6/u L Hgb 13.1 (11.7-16.6) g/dL Hct 40.4 L (42.0-52.0) % MCV 89.8 (80-94) fL MCH 29.1 (28.0-34.0) pg MCHC 32.4 (30.0-36.0) g/dL RDW 14.0 (12.1-15.1) % Plt Count 246 (130-400) 10^3/c mm MPV 10.1 (7.4-10.4) fL Neut % (Auto) 59.3 % Lymph % (Auto) 32.5 % [place] % (Auto) 4.6 % Eos % (Auto) 2.3 % Baso % (Auto) 0.7 % Neut # (Auto) 6.58 (1.8-7.7) 10^3/u L Lymph # (Auto) 3.6 (0.8-4.8) 10^3/u L [place] # (Auto) 0.5 (0.2-0.9) 10^3/u L Eos # (Auto) 0.3 (0.0-0.8) 10^3/u L Baso # (Auto) 0.1 (0.0-0.1) 10^3/u L Nucleated RBC % (a uto) 0 % Nucleated RBCs # 0.0 /100WBC PT 12.80 (12.1-14.9) SECO NDS INR 0.94 (0.8-1.2) D-Dimer 0.53 (0-0.59) ug/mIFE U Sodium 147 H (136-145) mmol/L Potassium 3.8 (3.5-5.1) mmol/L Chloride 103 (98-107) mmol/L Carbon Dioxide 28 (22-29) mmol/L Anion Gap 19.8 H (5-19) BUN 10 (6-20) mg/dL Creatinine 0.9 (0.7-1.2) mg/dL GFR Calculation 89.3 L (90-130) mL/min Glucose 127 H (65-115) mg/dL Calculated Osmolal ity 305 H (285-295) mOsm/k g Lactic Acid (0.5-2.2) mmol/L Calcium 8.5 (8.5-10.5) mg/dL Magnesium 1.9 (1.7-2.3) mg/dL Total Bilirubin 0.3 (0.15-1.2) mg/dL AST 30 (0-40) U/L ALT 28 (0-41) U/L Alkaline Phosphata se 81 (40-130) IU/L Troponin T Baselin e (0-15) ng/L Troponin T 120 Min chilkat (0-15) ng/L Delta Troponin T (0-10) ABS# NT-Pro-B Natriuret Pep 92 (0-125) pg/mL Total Protein 5.8 L (6.6-8.7) g/dL Albumin 3.6 (3.5-5.2) g/dL Globulin 2.2 (1.3-4.6) g/dL Lipase 21 (13-60) U/L Urine Color (Yellow) Urine Appearance (CLEAR) Urine pH (5-7) Ur Specific Gravit y (1.005-1.030) Urine Protein (Negative) Urine Glucose (UA) (Normal) Urine Ketones (Negative) Urine Blood (Negative) Urine Nitrate (Negative) Urine Bilirubin (Negative) Urine Urobilinogen (Negative) mg/dL Ur Leukocyte Karime ase (Negative) 06/20/20 06/20/20 06/20/20 Range/Units 20:15 20:15 20:50 WBC (4.0-10.0) 10^3/ uL RBC (4.1-5.3) 10^6/u L Hgb (11.7-16.6) g/dL Hct (42.0-52.0) % MCV (80-94) fL MCH (28.0-34.0) pg MCHC (30.0-36.0) g/dL RDW (12.1-15.1) % Plt Count (130-400) 10^3/c mm MPV (7.4-10.4) fL Neut % (Auto) % Lymph % (Auto) % [place] % (Auto) % Eos % (Auto) % Baso % (Auto) % Neut # (Auto) (1.8-7.7) 10^3/u L Lymph # (Auto) (0.8-4.8) 10^3/u L [place] # (Auto) (0.2-0.9) 10^3/u L Eos # (Auto) (0.0-0.8) 10^3/u L Baso # (Auto) (0.0-0.1) 10^3/u L Nucleated RBC % (a uto) % Nucleated RBCs # /100WBC PT (12.1-14.9) SECO NDS INR (0.8-1.2) D-Dimer (0-0.59) ug/mIFE U Sodium (136-145) mmol/L Potassium (3.5-5.1) mmol/L Chloride (98-107) mmol/L Carbon Dioxide (22-29) mmol/L Anion Gap (5-19) BUN (6-20) mg/dL Creatinine (0.7-1.2) mg/dL GFR Calculation (90-130) mL/min Glucose (65-115) mg/dL Calculated Osmolal ity (285-295) mOsm/k g Lactic Acid 1.7 (0.5-2.2) mmol/L Calcium (8.5-10.5) mg/dL Magnesium (1.7-2.3) mg/dL Total Bilirubin (0.15-1.2) mg/dL AST (0-40) U/L ALT (0-41) U/L Alkaline Phosphata se (40-130) IU/L Troponin T Baselin e 14 (0-15) ng/L Troponin T 120 Min chilkat (0-15) ng/L Delta Troponin T (0-10) ABS# NT-Pro-B Natriuret Pep (0-125) pg/mL Total Protein (6.6-8.7) g/dL Albumin (3.5-5.2) g/dL Globulin (1.3-4.6) g/dL Lipase (13-60) U/L Urine Color Yellow (Yellow) Urine Appearance Clear (CLEAR) Urine pH 5.0 (5-7) Ur Specific Gravit y 1.020 (1.005-1.030) Urine Protein 3+ H (Negative) Urine Glucose (UA) Norm (Normal) Urine Ketones Negative (Negative) Urine Blood Neg (Negative) Urine Nitrate Negative (Negative) Urine Bilirubin Neg (Negative) Urine Urobilinogen Norm (Negative) mg/dL Ur Leukocyte Karime ase Negative (Negative) 06/20/20 Range/Units 21:35 WBC (4.0-10.0) 10^3/ uL RBC (4.1-5.3) 10^6/u L Hgb (11.7-16.6) g/dL Hct (42.0-52.0) % MCV (80-94) fL MCH (28.0-34.0) pg MCHC (30.0-36.0) g/dL RDW (12.1-15.1) % Plt Count (130-400) 10^3/c mm MPV (7.4-10.4) fL Neut % (Auto) % Lymph % (Auto) % [place] % (Auto) % Eos % (Auto) % Baso % (Auto) % Neut # (Auto) (1.8-7.7) 10^3/u L Lymph # (Auto) (0.8-4.8) 10^3/u L [place] # (Auto) (0.2-0.9) 10^3/u L Eos # (Auto) (0.0-0.8) 10^3/u L Baso # (Auto) (0.0-0.1) 10^3/u L Nucleated RBC % (a uto) % Nucleated RBCs # /100WBC PT (12.1-14.9) SECO NDS INR (0.8-1.2) D-Dimer (0-0.59) ug/mIFE U Sodium (136-145) mmol/L Potassium (3.5-5.1) mmol/L Chloride (98-107) mmol/L Carbon Dioxide (22-29) mmol/L Anion Gap (5-19) BUN (6-20) mg/dL Creatinine (0.7-1.2) mg/dL GFR Calculation (90-130) mL/min Glucose (65-115) mg/dL Calculated Osmolal ity (285-295) mOsm/k g Lactic Acid (0.5-2.2) mmol/L Calcium (8.5-10.5) mg/dL Magnesium (1.7-2.3) mg/dL Total Bilirubin (0.15-1.2) mg/dL AST (0-40) U/L ALT (0-41) U/L Alkaline Phosphata se (40-130) IU/L Troponin T Baselin e (0-15) ng/L Troponin T 120 Min chilkat 15.17 H (0-15) ng/L Delta Troponin T 1.17 (0-10) ABS# NT-Pro-B Natriuret Pep (0-125) pg/mL Total Protein (6.6-8.7) g/dL Albumin (3.5-5.2) g/dL Globulin (1.3-4.6) g/dL Lipase (13-60) U/L Urine Color (Yellow) Urine Appearance (CLEAR) Urine pH (5-7) Ur Specific Gravit y (1.005-1.030) Urine Protein (Negative) Urine Glucose (UA) (Normal) Urine Ketones (Negative) Urine Blood (Negative) Urine Nitrate (Negative) Urine Bilirubin (Negative) Urine Urobilinogen (Negative) mg/dL Ur Leukocyte Karime ase (Negative) Discharge Plan Discharge Patient Disposition: Home Clinical Impression: Costalchondritis Chest pain Qualifiers: Chest pain type: chest pain on breathing Qualified Code(s): R07.1 - Chest pain on breathing Condition: Stable Prescriptions: No Action lorazepam 0.5 mg tablet 1 mg PO DAILY PRN (Reason: unknown) RF: 0 pregabalin [Lyrica] 200 mg capsule 200 mg PO DAILY@1300 RF: 0 furosemide [Lasix] 20 mg tablet 20 mg PO DAILY@10,19 RF: 0 hydrocodone-acetaminophen 5-325 mg tablet 1 tab PO BID PRN (Reason: pain) 30 Days Qty: 60 RF: 0 krulxsek-dijbzkviu-QT 3.5-10,000-1 mg/mL-unit/mL-% solution See Rx Instructions .ROUTE .COMPLEX RF: 0 Humulin 70/30 U-100 Insulin 100 unit/mL (70-30) suspension See Rx Instructions .ROUTE .COMPLEX RF: 0 amoxicillin-pot clavulanate 875-125 mg tablet 1 tab PO BID@, RF: 0 Lamictal 200 mg tablet 200 mg PO DAILY@1000 RF: 0 Celexa 40 mg tablet 40 mg PO DAILY@1000 RF: 0 lisinopril 20 mg tablet 20 mg PO DAILY@1000 RF: 0 Remeron 30 mg tablet 30 mg PO BEDTIME@2200 RF: 0 Discharge Orders: Discharge ED (Routine); Ordered 06/20/20 Ordered By: Senait Corcoran Referrals: Agustina Whiting DO [Primary Care Provider] - 1-3 days Discharge Diet: Diabetic, Low Salt and Low Cholesterol Discharge Activity: Increase activity as tolerated Patient Instructions: Chest Pain (ED), Costochondritis (ED) Activity Restrictions/Additional Instructions: Please return to the ER immediately for any of the signs or symptoms listed on your discharge instruction sheets, worsening/changing of your symptoms, you are not getting better as quickly as expected, or for ANY other cause or concerns. You have been offered admission for further cardiac testing but have declined. Of course any heart problem can potentially be life-threatening so if your symptoms return, you become short of breath, you break out in a sweat for no reason, he began to vomit, you are more than welcome to return here at any time for further evaluation and care. Be certain to follow-up with your doctor as soon as possible for recheck. Coding Level of Care Code ED Advanced Practice Rn for Carito Fwd Exam Comprehensive
[2020-06-20 20:23] LABS: Basophils # 0.1 10^3/uL (0.0-0.1); Basophils % 0.7 %; Eosinophils # 0.3 10^3/uL (0.0-0.8); Eosinophils % 2.3 %; Hematocrit 40.4 % (42.0-52.0); Hemoglobin 13.1 g/dL (11.7-16.6); Lymphocytes # 3.6 10^3/uL (0.8-4.8); Lymphocytes % 32.5 %; Mean Corpuscular HGB Conc 32.4 g/dL (30.0-36.0); Mean Corpuscular Hemoglobin 29.1 pg (28.0-34.0); Mean Corpuscular Volume 89.8 fL (80-94); Mean Platelet Volume 10.1 fL (7.4-10.4); Monocytes # 0.5 10^3/uL (0.2-0.9); Monocytes % 4.6 %; Neutrophils # 6.58 10^3/uL (1.8-7.7); Neutrophils % 59.3 %; Nucleated Red Blood Cells % 0 %; Platelet Count 246 10^3/cmm (130-400); White Blood Count 11.1 10^3/uL (4.0-10.0)
[2020-06-20 20:37] LABS: INR 0.94 (0.8-1.2)
[2020-06-20 20:40] LABS: D Dimer 0.53 ug/mIFEU (0-0.59)
[2020-06-20 20:43] VITALS: BP 180/95; PULSE 85; RESP 14; O2SAT 95
[2020-06-20 20:43] LABS: Lactic Sepsis W/Reflex 1.7 mmol/L (0.5-2.2)
[2020-06-20 20:45] LABS: Troponin(5th) Baseline 14 ng/L (0-15)
[2020-06-20 20:51] LABS: Add Urine Microscopic? NO
[2020-06-20 20:53] LABS: Alanine Aminotransferase 28 U/L (0-41); Albumin Level 3.6 g/dL (3.5-5.2); Alkaline Phosphatase 81 IU/L (40-130); Anion Gap 19.8 (5-19); Aspartate Amino Transferase 30 U/L (0-40); Blood Urea Nitrogen 10 mg/dL (6-20); Calcium 8.5 mg/dL (8.5-10.5); Carbon Dioxide 28 mmol/L (22-29); Chloride 103 mmol/L (98-107); Globulin 2.2 g/dL (1.3-4.6); Glomerular Filtration Rate 89.3 mL/min (90-130); Glucose 127 mg/dL (65-115); Lipase 21 U/L (13-60); Magnesium 1.9 mg/dL (1.7-2.3); NT Pro B Type Natriuretic Pept 92 pg/mL (0-125); Osmolality Calculated 305 mOsm/kg (285-295); Potassium 3.8 mmol/L (3.5-5.1); Sodium 147 mmol/L (136-145); Total Bilirubin 0.3 mg/dL (0.15-1.2); Total Protein 5.8 g/dL (6.6-8.7)
[2020-06-20 21:02] LABS: Urine Appearance Clear (CLEAR); Urine Color Yellow (Yellow)
[2020-06-20 21:03] LABS: Bilirubin Urine Neg (Negative); Blood Urine Neg (Negative); Glucose Urine UA Norm (Normal); Ketones Urine Negative (Negative); Leukocyte Esterase Urine Negative (Negative); Nitrate Urine Negative (Negative); Protein Urine 3+ (Negative); Urobilinogen Urine Norm (Negative)
[2020-06-20 22:07] LABS: Troponin 5 2HR 15.17 ng/L (0-15); Troponin 5 2HR Delta 1.17 ABS# (0-10)
[2020-06-20 22:21] VITALS: BP 168/75; PULSE 71; RESP 16; O2SAT 94
== END 2020-06-20 22:21 | disposition home or self-care (01) ==
PROVIDERS: Emergency Provider Emergency Medicine; PCP Family Medicine
DX: M94.0 Chondrocostal junction syndrome [Tietze] (principal); R07.1 Chest pain on breathing; Z79.4 Long term (current) use of insulin
CPT/HCPCS: 12345; 71045; 80053; 81003; 83605; 83690; 83735; 83880; 84484; 85025; 85378; 85610; 93005; 99282; 99283

== ENCOUNTER → 2020-08-11 09:52 | Outpatient (BNVA) | payer MEDICARE, OTHER, SELFPAY | PROVIDERS: PCP Family Medicine; Visit Provider Nurse Practitioner | DX: F43.12 Post-traumatic stress disorder, chronic (principal); F41.1 Generalized anxiety disorder | CPT/HCPCS: 99214 ==

== ENCOUNTER → 2020-09-16 07:56 | Outpatient (BNVA) | payer MEDICARE, OTHER, SELFPAY | PROVIDERS: PCP Family Medicine; Visit Provider Nurse Practitioner | DX: F43.12 Post-traumatic stress disorder, chronic (principal); F41.1 Generalized anxiety disorder | CPT/HCPCS: 99214 ==

== ENCOUNTER → 2020-12-15 14:43 | Outpatient (BNVA) | payer MEDICARE, OTHER, SELFPAY | PROVIDERS: PCP Family Medicine; Visit Provider Nurse Practitioner | DX: F41.1 Generalized anxiety disorder (principal); F43.12 Post-traumatic stress disorder, chronic | CPT/HCPCS: 99214 ==

== ENCOUNTER 2021-03-04 23:20 | Emergency (ER) | payer MEDICARE, OTHER, SELFPAY ==
[2021-03-04 23:50] VITALS: BP 174/82; PULSE 72; RESP 18; TEMP 36.7; O2SAT 96; BMI 49.4
--- NOTE | 2021-03-05 01:54 | CTR_ITS ---
PROCEDURE INFORMATION: Exam: CT Abdomen And Pelvis With Contrast Exam date and time: 03/05/2021 1:54 AM Age: 50 years old Clinical indication: Abdominal pain; Localized; Right lower quadrant (rlq); Prior surgery; Surgery date: 6+ months; Surgery type: Back; Additional info: Ruq pain TECHNIQUE: Imaging protocol: Computed tomography of the abdomen and pelvis with contrast. Radiation optimization: All CT scans at this facility use at least one of these dose optimization techniques: automated exposure control; mA and/or kV adjustment per patient size (includes targeted exams where dose is matched to clinical indication); or iterative reconstruction. Contrast material: OMNI 300; Contrast volume: 95 ml; Contrast route: INTRAVENOUS (IV); COMPARISON: CT abdomen pelvis w con* [id number] 11/28/2017 12:35 AM RADIATION DOSE METRICS: Total DLP (mGy-cm): 1839.81 FINDINGS: Lungs: There are multiple calcified pulmonary nodules consistent with prior granulomatous disease. Mediastinal space: Small hiatal hernia. Liver: Normal. No mass. Gallbladder and bile ducts: No wall thickening, pericholecystic fluid or stones. Pancreas: Normal. No ductal dilation. Spleen: Normal. No splenomegaly. Adrenal glands: Normal. No mass. Kidneys and ureters: Normal. No hydronephrosis. Stomach and bowel: Unremarkable. No obstruction. No mucosal thickening. Appendix: No evidence of appendicitis. Intraperitoneal space: Unremarkable. No free air. No significant fluid collection. Vasculature: Unremarkable. No abdominal aortic aneurysm. Lymph nodes: Unremarkable. No enlarged lymph nodes. Urinary bladder: Unremarkable as visualized. Reproductive: Unremarkable as visualized. Bones/joints: Intact posterior fusion hardware L4-L5. Soft tissues: Unremarkable. Other findings: There is a laparoscopic band in good position. CT/CT abdomen pelvis w con* [id number] IMPRESSION: 1. No cause for acute pain is identified. 2. There is a laparoscopic band in good position. 3. Small hiatal hernia. Radiation Dose CTDIVOL = (mGy): DLP = 1839.81 (mGy-cm)
[2021-03-05 02:01] LABS: Basophils # 0.1 10^3/uL (0.0-0.1); Basophils % 0.6 %; Eosinophils # 0.3 10^3/uL (0.0-0.8); Eosinophils % 1.8 %; Hematocrit 39.2 % (42.0-52.0); Hemoglobin 12.5 g/dL (11.7-16.6); Lymphocytes # 3.3 10^3/uL (0.8-4.8); Lymphocytes % 21.2 %; Mean Corpuscular HGB Conc 31.9 g/dL (30.0-36.0); Mean Corpuscular Hemoglobin 29.1 pg (28.0-34.0); Mean Corpuscular Volume 91.2 fl (80-94); Mean Platelet Volume 10.4 fL (7.4-10.4); Monocytes # 0.7 10^3/uL (0.2-0.9); Monocytes % 4.7 %; Neutrophils # 11.09 10^3/uL (1.8-7.7); Neutrophils % 70.6 %; Nucleated Red Blood Cells % 0 %; Platelet Count 271 10^3/cmm (130-400); Red Cell Distribution Width 14.5 % (12.1-15.1); White Blood Count 15.7 10^3/uL (4.0-10.0)
[2021-03-05] MEDS: ondansetron 2 mg/ML SDV 2 mL 4 MG IVP (02:12)
[2021-03-05] MEDS: ketorolac 30 mg/mL INJ 15 MG IVP (02:12)
[2021-03-05 02:25] LABS: Alanine Aminotransferase 16 U/L (0-41); Albumin Level 3.8 g/dL (3.5-5.2); Alkaline Phosphatase 92 IU/L (40-130); Anion Gap 14.8 (5-19); Aspartate Amino Transferase 18 U/L (0-40); Blood Urea Nitrogen 13 mg/dL (6-20); C Reactive Protein 50.7 mg/L (0.0-4.9); Calcium 8.9 mg/dL (8.5-10.5); Carbon Dioxide 27 mmol/L (22-29); Chloride 107 mmol/L (98-107); Globulin 3.1 g/dL (1.3-4.6); Glomerular Filtration Rate 89.3 mL/min (90-130); Glucose 58 mg/dL (65-115); Lipase 17 U/L (13-60); Osmolality Calculated 298 mOsm/kg (285-295); Potassium 3.8 mmol/L (3.5-5.1); Sodium 145 mmol/L (136-145); Total Bilirubin 0.3 mg/dL (0.15-1.2); Total Protein 6.9 g/dL (6.6-8.7)
[2021-03-05] MEDS: iohexol 300 mg/mL 100 mL Btl IV (02:30)
[2021-03-05 02:40] LABS: Add Urine Microscopic? YES; Bilirubin Urine Neg (Negative); Blood Urine Neg (Negative); Glucose Urine UA Norm (Normal); Ketones Urine Negative (Negative); Leukocyte Esterase Urine Negative (Negative); Nitrate Urine Negative (Negative); Protein Urine 1+ (Negative); Urine Appearance Clear (CLEAR); Urine Color Yellow (Yellow); Urobilinogen Urine Norm (Negative); pH Urine 5 (5-7)
[2021-03-05 02:50] LABS: Add Urine Culture? No; Bacteria Urine 1+ /hpf; Mucus Urine 3+ /hpf; RBC Urine 0-4 /hpf (0-2); Squamous Epithelial Cell Urine 15-25 /hpf (0-5); WBC Urine 0-4 /hpf (0-5)
[2021-03-05] MEDS: dextrose 10% 250 ML 500 ML IV (03:07)
--- NOTE | 2021-03-05 03:24 | ED_ITS ---
HPI - Abdominal Pain General: Chief Complaint: Abdominal Pain Stated Complaint: r sided abd pain Time Seen by Provider: 03/05/21 01:38 History of Present Illness: HPI narrative: 50-year-old with right-sided abdominal pain since around 4 PM. He notes he has not thrown up, no diarrhea. Very little nausea. No fever. He has not had this type of pain before. He had a gastric sleeve placed at 1 point, otherwise no belly surgeries. MD elicited complaint: abdominal pain Pertinent past history: other Onset (ago): hour(s) Pain Consistency: constant Location: RUQ Quality: cramping and stabbing Radiation: RUQ Migration to: no migration Exacerbating factors: movement Relieving factors: nothing Associated Symptoms: Reports nausea (Very little); Denies change in stool character, constipation, diarrhea, dysuria, fever(s), hematochezia and vomiting Review of Systems Const: Denies: fever(s) Card: Denies: chest pain or palpitations Resp: Denies: dyspnea or productive cough GI: Reports: nausea (Very little); Denies: vomiting, diarrhea, constipation, change in stool character or hematochezia : Denies: dysuria Neuro: Denies: headache(s) PFSH ED PFSH: Medical History (Updated 03/05/21 @ 03:26 by Remy Dillon DO) Encounter for long-term use of opiate analgesic Generalized anxiety disorder Lumbar back pain Opioid contract exists Post-traumatic stress disorder, chronic Surgical History LAP-BAND surgery status Family History Other CAD (coronary artery disease) Cancer Diabetes Hypertension Psychiatric illness Social History Smoking and tobacco status: never smoked Alcohol intake: never History of recent travel: No Physical Exam Const: COMMON NORMALS: no acute distress HENMT: COMMON NORMALS: normocephalic HEAD & SCALP: normocephalic Chest: COMMONS NORMALS: normal inspection of the chest Resp: COMMON NORMALS: normal respiratory effort, No use of accessory muscles and clear to auscultation bilaterally AUSCULTATION: clear to auscultation bilaterally Cardio: COMMON NORMALS: regular rate and regular rhythm RATE: regular rate RHYTHM: regular rhythm GI: COMMON NORMALS: Normal to inspection, nondistended, normoactive bowel sounds present INSPECTION: Yes central obesity PALPATION: Yes Tenderness to palpation present (GI) Details: RUQ Neuro: GIGI COMA SCALE: document GCS findings Gigi coma scale eye opening: Spontaneous Gigi coma scale verbal response: Orientated [place] coma scale motor response: Obey commands [place] coma scale total score: 15 Course Vital Signs: Vital signs: Vital Signs Temperature 98.1 F 03/04/21 23:50 Pulse Rate 66 03/05/21 04:00 Respiratory Rate 18 03/05/21 04:00 Blood Pressure 164/67 03/05/21 04:00 Pulse Oximetry 96 03/05/21 04:00 MDM - Abdominal Pain MDM Narrative: Medical decision making narrative: Tenderness in right upper quadrant on exam with bed shake tenderness as well. White blood cell count is 15.7. Patient's glucose was 58, he was given an infusion of 250 mL of D10 with improvement in his sugar was appropriate. CT did not reveal a cause of his belly discomfort, noting a normal gallbladder wall with normal ducts. His symptoms are essentially resolved after medication here. Lab Data: Labs: Lab Results 03/05/21 03/05/21 03/05/21 Range/Units 01:45 01:45 02:00 WBC 15.7 H (4.0-10.0) 10^3/ uL RBC 4.30 (4.1-5.3) 10^6/u L Hgb 12.5 (11.7-16.6) g/dL Hct 39.2 L (42.0-52.0) % MCV 91.2 (80-94) fl MCH 29.1 (28.0-34.0) pg MCHC 31.9 (30.0-36.0) g/dL RDW 14.5 (12.1-15.1) % Plt Count 271 (130-400) 10^3/c mm MPV 10.4 (7.4-10.4) fL Neut % (Auto) 70.6 % Lymph % (Auto) 21.2 % [place] % (Auto) 4.7 % Eos % (Auto) 1.8 % Baso % (Auto) 0.6 % Neut # (Auto) 11.09 H (1.8-7.7) 10^3/u L Lymph # (Auto) 3.3 (0.8-4.8) 10^3/u L [place] # (Auto) 0.7 (0.2-0.9) 10^3/u L Eos # (Auto) 0.3 (0.0-0.8) 10^3/u L Baso # (Auto) 0.1 (0.0-0.1) 10^3/u L Nucleated RBC % (a uto) 0 % Nucleated RBCs # 0.0 /100WBC Sodium 145 (136-145) mmol/L Potassium 3.8 (3.5-5.1) mmol/L Chloride 107 (98-107) mmol/L Carbon Dioxide 27 (22-29) mmol/L Anion Gap 14.8 (5-19) BUN 13 (6-20) mg/dL Creatinine 0.9 (0.7-1.2) mg/dL GFR Calculation 89.3 L (90-130) mL/min Glucose 58 L (65-115) mg/dL POC Glucose (70-110) mg/dL Calculated Osmolal ity 298 H (285-295) mOsm/k g Calcium 8.9 (8.5-10.5) mg/dL Total Bilirubin 0.3 (0.15-1.2) mg/dL AST 18 (0-40) U/L ALT 16 (0-41) U/L Alkaline Phosphata se 92 (40-130) IU/L C-Reactive Protein 50.7 H (0.0-4.9) mg/L Total Protein 6.9 (6.6-8.7) g/dL Albumin 3.8 (3.5-5.2) g/dL Globulin 3.1 (1.3-4.6) g/dL Lipase 17 (13-60) U/L Urine Color Yellow (Yellow) Urine Appearance Clear (CLEAR) Urine pH 5 (5-7) Ur Specific Gravit y 1.020 (1.005-1.030) Urine Protein 1+ H (Negative) Urine Glucose (UA) Norm (Normal) Urine Ketones Negative (Negative) Urine Blood Neg (Negative) Urine Nitrate Negative (Negative) Urine Bilirubin Neg (Negative) Urine Urobilinogen Norm (Negative) mg/dL Ur Leukocyte Karime ase Negative (Negative) Urine RBC 0-4 H (0-2) /hpf Urine WBC 0-4 H (0-5) /hpf Ur Squamous Epith Cells 15-25 H (0-5) /hpf Amorphous Sediment Not Reportable Urine Bacteria 1+ H (NONE) /hpf Urine Mucus 3+ /hpf 03/05/21 Range/Units 03:49 WBC (4.0-10.0) 10^3/ uL RBC (4.1-5.3) 10^6/u L Hgb (11.7-16.6) g/dL Hct (42.0-52.0) % MCV (80-94) fl MCH (28.0-34.0) pg MCHC (30.0-36.0) g/dL RDW (12.1-15.1) % Plt Count (130-400) 10^3/c mm MPV (7.4-10.4) fL Neut % (Auto) % Lymph % (Auto) % [place] % (Auto) % Eos % (Auto) % Baso % (Auto) % Neut # (Auto) (1.8-7.7) 10^3/u L Lymph # (Auto) (0.8-4.8) 10^3/u L [place] # (Auto) (0.2-0.9) 10^3/u L Eos # (Auto) (0.0-0.8) 10^3/u L Baso # (Auto) (0.0-0.1) 10^3/u L Nucleated RBC % (a uto) % Nucleated RBCs # /100WBC Sodium (136-145) mmol/L Potassium (3.5-5.1) mmol/L Chloride (98-107) mmol/L Carbon Dioxide (22-29) mmol/L Anion Gap (5-19) BUN (6-20) mg/dL Creatinine (0.7-1.2) mg/dL GFR Calculation (90-130) mL/min Glucose (65-115) mg/dL POC Glucose 123 H (70-110) mg/dL Calculated Osmolal ity (285-295) mOsm/k g Calcium (8.5-10.5) mg/dL Total Bilirubin (0.15-1.2) mg/dL AST (0-40) U/L ALT (0-41) U/L Alkaline Phosphata se (40-130) IU/L C-Reactive Protein (0.0-4.9) mg/L Total Protein (6.6-8.7) g/dL Albumin (3.5-5.2) g/dL Globulin (1.3-4.6) g/dL Lipase (13-60) U/L Urine Color (Yellow) Urine Appearance (CLEAR) Urine pH (5-7) Ur Specific Gravit y (1.005-1.030) Urine Protein (Negative) Urine Glucose (UA) (Normal) Urine Ketones (Negative) Urine Blood (Negative) Urine Nitrate (Negative) Urine Bilirubin (Negative) Urine Urobilinogen (Negative) mg/dL Ur Leukocyte Karime ase (Negative) Urine RBC (0-2) /hpf Urine WBC (0-5) /hpf Ur Squamous Epith Cells (0-5) /hpf Amorphous Sediment Urine Bacteria (NONE) /hpf Urine Mucus /hpf Discharge Plan Discharge Patient Disposition: Home Clinical Impression: Abdominal pain Qualifiers: Abdominal location: right upper quadrant Qualified Code(s): R10.11 - Right upper quadrant pain Condition: Stable Prescriptions: New ketorolac 10 mg tablet 10 mg PO TID PRN (Reason: pain) Qty: 10 RF: 0 No Action lorazepam 0.5 mg tablet 1 mg PO DAILY PRN (Reason: unknown) RF: 0 pregabalin [Lyrica] 200 mg capsule 200 mg PO DAILY@1300 RF: 0 furosemide [Lasix] 20 mg tablet 20 mg PO DAILY@10,19 RF: 0 hydrocodone-acetaminophen 5-325 mg tablet 1 tab PO BID PRN (Reason: pain) 30 Days Qty: 60 RF: 0 trazodone 50 mg tablet 50 mg PO .HS Qty: 30 RF: 1 Celexa 40 mg tablet 40 mg PO DAILY@1000 Qty: 30 RF: 1 Lamictal 200 mg tablet 200 mg PO DAILY@1000 Qty: 30 RF: 1 prazosin 2 mg capsule 2 mg PO .HS Qty: 30 RF: 1 cephalexin [Keflex] 500 mg capsule 500 mg PO BID Qty: 14 RF: 0 mupirocin 2 % ointment 1 applic topical BID Qty: 22 RF: 0 mupirocin 2 % ointment 1 applic topical BID Qty: 22 RF: 0 nnhpmvbd-qefnatwrr-JL 3.5-10,000-1 mg/mL-unit/mL-% solution See Rx Instructions .ROUTE .COMPLEX RF: 0 Humulin 70/30 U-100 Insulin 100 unit/mL (70-30) suspension See Rx Instructions .ROUTE .COMPLEX RF: 0 lisinopril 20 mg tablet 20 mg PO DAILY@1000 RF: 0 Discharge Orders: Discharge ED (Routine); Ordered 03/05/21 Ordered By: Remy Dillon Referrals: Agustina Whiting DO [Primary Care Provider] - 4-7 days Discharge Diet: Advance as tolerated Discharge Activity: Increase activity as tolerated Patient Instructions: Abdominal Pain (ED), Opioid Safety Activity Restrictions/Additional Instructions: Follow a liquid diet for 24 hours, then advance as tolerated. Return for fever greater than 100, worsening pain despite treatment, vomiting liquids or medications, any other concerning symptoms. Coding Level of Care Code ED Assistant Education Director for [facility] Exam Problem Focused
[2021-03-05 03:54] LABS: Glucose Point of Care 123 mg/dL (70-110)
[2021-03-05 03:59] VITALS: BP 164/67; PULSE 65; RESP 18; O2SAT 95
[2021-03-05 04:00] VITALS: BP 164/67; PULSE 66; RESP 18; O2SAT 96
== END 2021-03-05 04:01 | disposition home or self-care (01) ==
PROVIDERS: Emergency Provider Emergency Medicine; PCP Family Medicine
DX: R10.11 Right upper quadrant pain (principal)
CPT/HCPCS: 36416; 74177; 80053; 81001; 82962; 83690; 85025; 86140; 96374; 96375; 99283; J1885; J2405; J7799; Q9967

== ENCOUNTER → 2021-03-09 14:58 | Outpatient (BNVA) | payer MEDICARE, OTHER, SELFPAY | PROVIDERS: PCP Family Medicine; Visit Provider Nurse Practitioner | DX: F41.1 Generalized anxiety disorder (principal); F43.12 Post-traumatic stress disorder, chronic | CPT/HCPCS: 99214 ==

== ENCOUNTER 2021-04-08 17:54 | Emergency (ER) | payer MEDICARE, OTHER, SELFPAY ==
[2021-04-08 18:33] VITALS: BP 182/103; PULSE 78; RESP 18; TEMP 37.2; O2SAT 95; BMI 48.6
[2021-04-08] MEDS: lidocaine 1% INJ 20 mL INTRADERMA (20:20)
--- NOTE | 2021-04-08 21:05 | ED_ITS ---
HPI - Wound/Laceration General: Chief Complaint: Wound/Laceration Stated Complaint: R Ring laceration Time Seen by Provider: 04/08/21 20:11 History of Present Illness: HPI narrative: Patient cut end of right ring finger with a pocket knife earlier this evening. Onset (ago): hour(s) Extremity Location: Right: hand Place: home Patient tetanus UTD: Yes Context: accidental Associated symptoms: Reports no associated symptoms; Denies chills or fever(s) Review of Systems Const: Denies: fever(s) or chills Skin/Breast: Reports: other (Laceration pad of right ring finger) Psych: Denies: anxiety or depression [facility] ED PFSH: Medical History (Updated 04/08/21 @ 20:42 by LUBNA Chandra) Encounter for long-term use of opiate analgesic Generalized anxiety disorder Lumbar back pain Opioid contract exists Post-traumatic stress disorder, chronic Surgical History LAP-BAND surgery status Family History Other CAD (coronary artery disease) Cancer Diabetes Hypertension Psychiatric illness Social History Smoking and tobacco status: never smoked Alcohol intake: never History of recent travel: No Physical Exam Const: COMMON NORMALS: no acute distress GENERAL APPEARANCE: cooperative Psych: COMMON NORMALS: mental status grossly normal ATTITUDE: Yes calm Skin: OTHER: Flap laceration right ring finger pad. Procedures Laceration Laceration 1: Site: hand Side (If applicable): right Size (cm): 3 Description: flap Depth: simple, single layer Local Anesthetic: lidocaine 1% Pre-repair: irrigated extensively Skin layer closed with: other (Ethilon) Size (cm): 5-0 Number of sutures: 4 Technique: simple, interrupted Course Vital Signs: Vital signs: Vital Signs Temperature 99 F 04/08/21 18:33 Pulse Rate 78 04/08/21 18:33 Respiratory Rate 18 04/08/21 18:33 Blood Pressure 182/103 04/08/21 18:33 Pulse Oximetry 95 04/08/21 18:33 Discharge Plan Discharge Patient Disposition: Home Clinical Impression: Laceration Condition: Stable Prescriptions: No Action lorazepam 0.5 mg tablet 1 mg PO DAILY PRN (Reason: unknown) RF: 0 pregabalin [Lyrica] 200 mg capsule 200 mg PO DAILY@1300 RF: 0 furosemide [Lasix] 20 mg tablet 20 mg PO DAILY@10,19 RF: 0 hydrocodone-acetaminophen 5-325 mg tablet 1 tab PO BID PRN (Reason: pain) 30 Days Qty: 60 RF: 0 mupirocin 2 % ointment 1 applic topical BID Qty: 22 RF: 0 Lamictal 200 mg tablet 200 mg PO DAILY@1000 Qty: 30 RF: 2 Celexa 40 mg tablet 40 mg PO DAILY@1000 Qty: 30 RF: 2 trazodone 50 mg tablet 50 mg PO .HS Qty: 30 RF: 2 prazosin 2 mg capsule 2 mg PO .HS Qty: 30 RF: 2 mupirocin 2 % ointment 1 applic topical BID Qty: 22 RF: 0 alitccid-gnpzoagbm-NS 3.5-10,000-1 mg/mL-unit/mL-% solution See Rx Instructions .ROUTE .COMPLEX RF: 0 Humulin 70/30 U-100 Insulin 100 unit/mL (70-30) suspension See Rx Instructions .ROUTE .COMPLEX RF: 0 lisinopril 20 mg tablet 20 mg PO DAILY@1000 RF: 0 ketorolac 10 mg tablet 10 mg PO TID PRN (Reason: pain) Qty: 10 RF: 0 Discharge Orders: Discharge ED (Routine); Ordered 04/08/21 Ordered By: Timmy Pulido Referrals: Agustina Whiting DO [Primary Care Provider] - Discharge Diet: Usual diet Discharge Activity: Resume usual activity Patient Instructions: Suture Care (ED), Laceration (ED) Activity Restrictions/Additional Instructions: Sutures need to be out in 7 days. Follow-up your primary care, urgent care or here in the ER to get them taken out. Watch for signs of infection. Keep dressing on next 2448 hrs. then change daily. Coding Level of Care Code ED Laundry Bag Punch Operator for [facility]
[2021-04-08 21:17] VITALS: PULSE 62; RESP 18; TEMP 37.2; O2SAT 95
== END 2021-04-08 20:57 | disposition home or self-care (01) ==
PROVIDERS: Emergency Provider Nurse Practitioner Family; PCP Family Medicine
DX: S61.214A Laceration without foreign body of right ring finger without damage to nail, initial encounter (principal); W26.0XXA Contact with knife, initial encounter; Z79.4 Long term (current) use of insulin
CPT/HCPCS: 12002; 99282

== ENCOUNTER → 2021-05-05 14:37 | Outpatient (BNVA) | payer MEDICARE, OTHER, SELFPAY | PROVIDERS: PCP Family Medicine; Visit Provider Nurse Practitioner | DX: F41.1 Generalized anxiety disorder (principal); F43.12 Post-traumatic stress disorder, chronic | CPT/HCPCS: 99214 ==

== ENCOUNTER 2021-05-06 13:24 | Emergency (ER) | payer MEDICARE, OTHER, SELFPAY ==
[2021-05-06 13:31] VITALS: BP 178/102; PULSE 74; RESP 18; TEMP 36.8; O2SAT 95; BMI 49.1
--- NOTE | 2021-05-06 13:39 | W.ED.URI ---
HPI - URI/Sore Throat General: Chief Complaint: General Medical Stated Complaint: SINUS CONGESTION Time Seen by Provider: 05/06/21 13:27 Source: patient Mode of arrival: ambulatory Limitations: no limitations History of Present Illness: HPI Narrative: Patient is a 50-year-old male who presents to ED today with a complaint of rhinorrhea, nasal congestion/discharge, sinus pressure, and a productive cough. He states approximately week ago he began noticing sneezing and states it has then progressed. He states he is blowing clear and yellow discharge from his nose. He states he has the sensation of postnasal drainage that is causing him to get choked up . He states his cough is productive. He is not complaining of shortness of breath or difficulty breathing. No chest pain. He has no systemic symptoms such as shortness of breath, chills, body aches. Patient is fully vaccinated for COVID including booster shot. No sick contacts. MD elicited complaint: cough, rhinorrhea, nasal congestion and sinus pain Onset (ago): day(s) Consistency: constant Severity: mild Description of mucous: clear and yellow Able to tolerate fluids by mouth: Yes Exacerbating factors: nothing Relieving factors: nothing Associated symptoms: Reports nasal congestion and sinus pain; Deny chills, chest pain, diarrhea, epistaxis, ear or mastoid pain, fever(s), headache(s), nausea or vomiting Treatments prior to arrival: cold medicine Review of Systems Const: Denies: fever(s), chills, body aches, fatigue or malaise Eyes: Denies: change in vision ENMT: Reports: nasal discharge, nasal congestion, post nasal drip and sinus pain; Denies: throat pain, enlarged tonsils, odynophagia, swelling of lips/tongue, ear or mastoid pain, ear discharge or epistaxis Card: Denies: chest pain Resp: Reports: productive cough and chest congestion; Denies: dyspnea, wheezing or hemoptysis GI: Denies: nausea, vomiting or diarrhea Musc: Denies: neck pain or back pain Skin/Breast: Denies: rash Neuro: Denies: headache(s) or dizziness [facility] ED PFSH: Medical History (Updated 05/06/21 @ 14:36 by YUNIEL Gutiérrez) Encounter for long-term use of opiate analgesic Generalized anxiety disorder Lumbar back pain Opioid contract exists Post-traumatic stress disorder, chronic Surgical History LAP-BAND surgery status Family History Other CAD (coronary artery disease) Cancer Diabetes Hypertension Psychiatric illness Social History Smoking and tobacco status: never smoked Alcohol intake: never History of recent travel: No Physical Exam Const: COMMON NORMALS: no acute distress, patient oriented x3, no limitations and alert GENERAL APPEARANCE: cooperative NUTRITIONAL APPEARANCE: obese morbidly obese ORIENTATION/CONSCIOUSNESS: Yes awake, Yes oriented to person, Yes oriented to place and Yes oriented to time HENMT: COMMON NORMALS: normocephalic, atraumatic and Normal external nose present HEAD & SCALP: normal to inspection, normocephalic and atraumatic FACE & SINUS: normal facial exam and sinus tenderness frontal and ethmoid NOSE: Normal external nose present MOUTH: Normal oral and palatal mucosa present, lip normal and tongue normal THROAT: posterior oropharynx normal, tonsils normal and uvula midline Neck/C-Spine: COMMON NORMALS: full ROM and no lymphadenopathy Resp: COMMON NORMALS: normal respiratory effort and clear to auscultation bilaterally AUSCULTATION: clear to auscultation bilaterally Cardio: COMMON NORMALS: regular rate and regular rhythm RATE: regular rate RHYTHM: regular rhythm Neuro: COMMON NORMALS: patient oriented x3 SENSORIUM/ORIENTATION: Yes alert, Yes oriented to person, Yes oriented to place and Yes oriented to time Skin: COMMON NORMALS: no rashes or lesions noted GENERAL SKIN EXAM: no rashes or lesions noted Course Vital Signs: Vital signs: Vital Signs Temperature 98.3 F 05/06/21 14:26 Pulse Rate 70 05/06/21 14:26 Respiratory Rate 18 05/06/21 14:26 Blood Pressure 165/74 05/06/21 14:26 Pulse Oximetry 96 05/06/21 14:26 MDM - URI/Sore Throat MDM Narrative: Medical decision making narrative: CXR normal. Vitals stable. Clinically in NAD. Discussed how symptoms are most likely viral and probably related to the common cold/rhinovirus. I have no suspicion for COVID at this time. Discussed treatment is geared towards symptomatic care. He states his cough is his most bothersome symptom. Recommended conservative treatment including honey/lemon, throat lozenges, vicks vapor rub, etc. Will RX for codeine/guaifenesin to take if these therapies aren't helping. Return to ED precautions. Otherwise recommend follow up with PCP in 5-7 days for continued symptoms. Discharge Plan Discharge Patient Disposition: Home Clinical Impression: Viral upper respiratory illness Condition: Stable Prescriptions: New codeine-guaifenesin 10-100 mg/5 mL liquid 10 ml PO Q4H PRN (Reason: cold symptoms) Qty: 237 RF: 0 No Action lorazepam 0.5 mg tablet 1 mg PO DAILY PRN (Reason: unknown) RF: 0 pregabalin [Lyrica] 200 mg capsule 200 mg PO DAILY@1300 RF: 0 furosemide [Lasix] 20 mg tablet 20 mg PO DAILY@10,19 RF: 0 hydrocodone-acetaminophen 5-325 mg tablet 1 tab PO BID PRN (Reason: pain) 30 Days Qty: 60 RF: 0 mupirocin 2 % ointment 1 applic topical BID Qty: 22 RF: 0 mupirocin 2 % ointment 1 applic topical BID Qty: 22 RF: 0 trazodone 100 mg tablet 100 mg PO .HS Qty: 30 RF: 2 prazosin 2 mg capsule 4 mg PO .HS Qty: 60 RF: 2 Celexa 40 mg tablet 40 mg PO DAILY@1000 Qty: 30 RF: 2 Lamictal 200 mg tablet 200 mg PO DAILY@1000 Qty: 30 RF: 2 kopagzwg-jugelxzaj-SB 3.5-10,000-1 mg/mL-unit/mL-% solution See Rx Instructions .ROUTE .COMPLEX RF: 0 Humulin 70/30 U-100 Insulin 100 unit/mL (70-30) suspension See Rx Instructions .ROUTE .COMPLEX RF: 0 lisinopril 20 mg tablet 20 mg PO DAILY@1000 RF: 0 ketorolac 10 mg tablet 10 mg PO TID PRN (Reason: pain) Qty: 10 RF: 0 Discharge Orders: Discharge ED (Routine); Ordered 05/06/21 Ordered By: Teresita Mccarty Referrals: Agustina Whiting DO [Primary Care Provider] - Patient Instructions: Upper Respiratory Infection (ED), Cold Symptoms (ED) Coding Level of Care Code ED Development Associate for [facility] Fwd Exam Detailed
--- NOTE | 2021-05-06 13:47 | XRR_ITS ---
PROCEDURE INFORMATION: Exam: XR Chest Exam date and time: 05/06/2021 1:47 PM Age: 50 years old Clinical indication: Cough; Additional info: Chest congestion/cough TECHNIQUE: Imaging protocol: XR of the chest. Views: 1 view. COMPARISON: CR XR chest 1V portable [id number] 06/20/2020 8:12 PM FINDINGS: Lungs: Low lung volumes. No consolidation. Pulmonary vasculature within normal limits. Pleural spaces: Unremarkable. No pleural effusion. No pneumothorax. Heart/Mediastinum: Cardiac silhouette mildly enlarged. Bones/joints: No acute bony abnormality. Anterior cervical fusion plate noted. XR/XR chest 1V portable [id number] IMPRESSION: No acute radiographic findings. Radiation Dose CTDIVOL = (mGy): DLP = (mGy-cm)
[2021-05-06 13:49] VITALS: PULSE 70; RESP 18; TEMP 37.1
[2021-05-06 13:54] VITALS: BP 158/78; O2SAT 95
[2021-05-06 14:26] VITALS: BP 165/74; PULSE 70; RESP 18; TEMP 36.8; O2SAT 96
== END 2021-05-06 14:40 | disposition home or self-care (01) ==
PROVIDERS: Emergency Provider Physician Assistant; PCP Family Medicine
DX: J06.9 Acute upper respiratory infection, unspecified (principal); Z79.4 Long term (current) use of insulin
CPT/HCPCS: 71045; 99282

== ENCOUNTER → 2021-06-14 11:23 | Outpatient (BNVA) | payer MEDICARE, OTHER, SELFPAY | PROVIDERS: PCP Family Medicine; Visit Provider Nurse Practitioner | DX: F41.1 Generalized anxiety disorder (principal); F43.12 Post-traumatic stress disorder, chronic | CPT/HCPCS: 99214 ==

== ENCOUNTER 2021-06-21 19:04 | Day surgery (SDC) | payer MEDICARE, OTHER, SELFPAY ==
[2021-06-21 19:09] VITALS: BP 160/88; PULSE 91; RESP 18; TEMP 36.7; O2SAT 97
--- NOTE | 2021-06-21 21:24 | ED_ITS ---
HPI - General Adult General: Chief complaint: Airway/Esophagus Foreign Body Stated complaint: Food stuck under rib cage\V Time Seen by Provider: 06/21/21 20:20 Source: patient Mode of arrival: ambulatory Limitations: no limitations History of Present Illness: HPI narrative: 51-year-old male states that he was eating chicken fried steak yesterday and feels like he has had a piece lodged in his esophagus. He states that he has tried to swallow liquids and states he is able to after long period time but still feel like it stuck is having pain right is chest. He states that he has never had this happen before he has had a lap band in the past he denies any worst improving factors he has not had any vomiting. Associated symptoms: Deny chest pain, dyspnea, headache(s) or rash Review of Systems Const: Denies: fever(s), chills, body aches or change in appetite Eyes: Denies: blurry vision or eye discomfort ENMT: Denies: throat pain or dental pain Card: Denies: chest pain Resp: Denies: dyspnea GI: Reports: abdominal pain : Denies: dysuria Musc: Denies: neck pain or back pain Skin/Breast: Denies: rash Neuro: Denies: headache(s) Psych: Denies: depression Sukumar/Lymph: Denies: easy bruising All/Imm: Denies: urticaria PFSH ED PFSH: Medical History Encounter for long-term use of opiate analgesic Generalized anxiety disorder Lumbar back pain Opioid contract exists Post-traumatic stress disorder, chronic Psychiatric care Surgical History LAP-BAND surgery status Family History Other CAD (coronary artery disease) Cancer Diabetes Hypertension Psychiatric illness Social History Smoking and tobacco status: never smoked Alcohol intake: never History of recent travel: No Physical Exam Const: COMMON NORMALS: no acute distress, patient oriented x3 and healthy appearing HENMT: COMMON NORMALS: normocephalic and atraumatic HEAD & SCALP: normocephalic and atraumatic Eye: COMMON NORMALS: Equal, round and reactive pupils present and EOMs intact bilaterally PUPIL: Yes Equal, round and reactive pupils present Neck/C-Spine: COMMON NORMALS: full ROM and supple Chest: COMMONS NORMALS: normal inspection of the chest and normal palpation of entire chest wall Resp: COMMON NORMALS: normal respiratory effort, No retractions, No use of accessory muscles and clear to auscultation bilaterally AUSCULTATION: clear to auscultation bilaterally Cardio: COMMON NORMALS: regular rate, regular rhythm and No murmurs present (Cardio) RATE: regular rate RHYTHM: regular rhythm GI: COMMON NORMALS: Normal to inspection, nondistended, normoactive bowel sounds present, Soft to palpation, non-tender and no masses PALPATION: Yes Soft to palpation Extremity: COMMON NORMALS: normal to inspection and full ROM Neuro: COMMON NORMALS: patient oriented x3, moves all extremities and no focal motor deficits Psych: COMMON NORMALS: mental status grossly normal, Normal thought process present and cooperative THOUGHT PROCESS: Normal thought process present Skin: COMMON NORMALS: no rashes or lesions noted and no wounds GENERAL SKIN EXAM: no rashes or lesions noted Course Vital Signs: Vital signs: Vital Signs Temperature 98.1 F 06/21/21 19:09 Pulse Rate 91 06/21/21 19:09 Respiratory Rate 18 06/21/21 19:09 Blood Pressure 160/88 06/21/21 19:09 Pulse Oximetry 97 06/21/21 19:09 MDM - General Adult MDM Narrative: Medical decision making narrative: Patient presents here for esophageal food impaction he is unable to tolerate solids but is able to tolerate liquids he has had no improvement here after glucagon and nitro still has any pain with swallowing feels like he has food stuck spoke to Dr. Martinez who is going to take to the GI lab for an EGD. Lab Data: Labs: Lab Results 06/21/21 22:00 WBC 12.9 10^3/uL H 10 ^3/uL (4.0-10.0) RBC 4.42 10^6/uL 10^6 /uL (4.1-5.3) Hgb 12.4 g/dL g/dL (11.7-16.6) Hct 38.9 % L % (42.0-52.0) MCV 88.0 fl fl (80-94) MCH 28.1 pg pg (28.0-34.0) MCHC 31.9 g/dL g/dL (30.0-36.0) RDW 14.9 % % (12.1-15.1) Plt Count 269 10^3/cmm 10^3 /cmm (130-400) MPV 9.9 fL fL (7.4-10.4) Neut % (Auto) 69.4 % % Lymph % (Auto) 22.7 % % [place] % (Auto) 4.6 % % Eos % (Auto) 1.8 % % Baso % (Auto) 0.8 % % Neut # (Auto) 8.99 10^3/uL H 10 ^3/uL (1.8-7.7) Lymph # (Auto) 2.9 10^3/uL 10^3/ uL (0.8-4.8) [place] # (Auto) 0.6 10^3/uL 10^3/ uL (0.2-0.9) Eos # (Auto) 0.2 10^3/uL 10^3/ uL (0.0-0.8) Baso # (Auto) 0.1 10^3/uL 10^3/ uL (0.0-0.1) Nucleated RBC % (a uto) 0 % % Nucleated RBCs # 0.0 /100WBC /100W Discharge Plan Discharge Patient Disposition: Placed in Observation Clinical Impression: Food impaction of esophagus Qualifiers: Encounter type: initial encounter Qualified Code(s): T18.128A - Food in esophagus causing other injury, initial encounter Coding Level of Care Code ED Compounding And Finishing Supervisor for [facility] Fwd Exam Comprehensive
[2021-06-21] MEDS: nitroglycerin 0.4 mg sublingual Tablet SUBLINGUAL (21:51)
[2021-06-21] MEDS: sodium chloride 0.9% 1,000 ML 999 ML IV (21:54)
[2021-06-21 22:04] LABS: Basophils # 0.1 10^3/uL (0.0-0.1); Basophils % 0.8 %; Eosinophils # 0.2 10^3/uL (0.0-0.8); Eosinophils % 1.8 %; Hematocrit 38.9 % (42.0-52.0); Hemoglobin 12.4 g/dL (11.7-16.6); Lymphocytes # 2.9 10^3/uL (0.8-4.8); Lymphocytes % 22.7 %; Mean Corpuscular HGB Conc 31.9 g/dL (30.0-36.0); Mean Corpuscular Hemoglobin 28.1 pg (28.0-34.0); Mean Platelet Volume 9.9 fL (7.4-10.4); Monocytes # 0.6 10^3/uL (0.2-0.9); Monocytes % 4.6 %; Neutrophils # 8.99 10^3/uL (1.8-7.7); Neutrophils % 69.4 %; Nucleated Red Blood Cells % 0 %; Platelet Count 269 10^3/cmm (130-400); Red Blood Count 4.42 10^6/uL (4.1-5.3); Red Cell Distribution Width 14.9 % (12.1-15.1); White Blood Count 12.9 10^3/uL (4.0-10.0)
--- NOTE | 2021-06-21 22:23 | ANES.PREANE2 ---
Pre-Anesthetic Assessment Pre-Anesthetic Assessment: Height/Weight: Height 1.73 m Temp Pulse Resp BP Pulse Ox 98.1 F 91 18 160/88 97 06/21/21 19:09 06/21/21 19:09 06/21/21 19:09 06/21/21 19:09 06/21/21 19:09 Preop Diagnosis: food blus Familial anesthetic complications: none Was Beta Mercedes taken within 24 hours: N/A Was Clonidine taken within 24 hours: N/A Last intake: 5:30 Social: Social History: No alcohol and No tobacco Exam: Pre-Anes Outpt Exam: alert, oriented x 3, clear to auscultation bilaterally and regular rate & rhythm Airway: Cervical ROM: WNL MP: 4 Dentition: Full Pulmonary: Pulmonary: Asthma and Sleep apnea Comments: hx aspiration pneumonia CV/HEM: CV/HEM: HTN GI: Comments: gastric lap band Metabolic: Metabolic: DM and Morbid obesity Musc/skel: Musc/skel: Lower Back Pain Neuropsych: Neuropsych: Anxiety Comments: hx neck trauma requiring surgery d/t abscess and tracheostomy Anesthetic Plan: ASA status: 4 Anesthesia: General Risk of > 500 ml blood loss (7ml/kg in children): No PFSH Anesthesia PFSH: Medical History Encounter for long-term use of opiate analgesic Generalized anxiety disorder Lumbar back pain Opioid contract exists Post-traumatic stress disorder, chronic Psychiatric care Surgical History LAP-BAND surgery status Family History Other CAD (coronary artery disease) Cancer Diabetes Hypertension Psychiatric illness Social History Smoking and tobacco status: never smoked Alcohol intake: never History of recent travel: No Data Anesthesia CBC & Chem 7: 06/21/21 22:00 06/21/21 22:00 Other Labs: Laboratory Results - last 48 hr 06/21/21 22:00 WBC 12.9 H RBC 4.42 Hgb 12.4 Hct 38.9 L MCV 88.0 MCH 28.1 MCHC 31.9 RDW 14.9 Plt Count 269 MPV 9.9 Neut % (Auto) 69.4 Lymph % (Auto) 22.7 [place] % (Auto) 4.6 Eos % (Auto) 1.8 Baso % (Auto) 0.8 Neut # (Auto) 8.99 H Lymph # (Auto) 2.9 [place] # (Auto) 0.6 Eos # (Auto) 0.2 Baso # (Auto) 0.1 Nucleated RBC % (auto) 0 Nucleated RBCs # 0.0 Cardiac Studies: No Data to Display
[2021-06-21 22:34] LABS: Alanine Aminotransferase 12 U/L (0-41); Albumin Level 3.7 g/dL (3.5-5.2); Alkaline Phosphatase 87 IU/L (40-130); Aspartate Amino Transferase 16 U/L (0-40); Blood Urea Nitrogen 11 mg/dL (6-20); Calcium 8.3 mg/dL (8.5-10.5); Carbon Dioxide 27 mmol/L (22-29); Chloride 106 mmol/L (98-107); Globulin 2.6 g/dL (1.3-4.6); Glomerular Filtration Rate 101.9 mL/min (90-130); Glucose 120 mg/dL (65-115); Osmolality Calculated 293 mOsm/kg (285-295); Sodium 141 mmol/L (136-145); Total Bilirubin 0.2 mg/dL (0.15-1.2); Total Protein 6.3 g/dL (6.6-8.7)
[2021-06-21 23:10] VITALS: BP 165/97; PULSE 76; RESP 20; TEMP 36.7; O2SAT 95
[2021-06-21 23:27] VITALS: BP 201/63; PULSE 106; RESP 20; TEMP 36.2; O2SAT 98
[2021-06-21 23:38] VITALS: BP 180/66; PULSE 96; RESP 19; TEMP 36.2; O2SAT 98
[2021-06-22 00:09] VITALS: BP 175/74; PULSE 83; RESP 18; TEMP 36.9; O2SAT 94
== END 2021-06-22 00:20 | disposition home or self-care (01) ==
LOC: ER 22:11 → GILAB 22:14
PROVIDERS: Emergency Provider Emergency Medicine; PCP Family Medicine; Visit Provider Internal Medicine
PROC: 0DJ08ZZ Inspection of Upper Intestinal Tract, Via Natural or Artificial Opening Endoscopic (ICD-10-PCS; CPT 43235; principal; 2021-06-21 23:00)
DX: K22.2 Esophageal obstruction (principal); R13.10 Dysphagia, unspecified; I10 Essential (primary) hypertension; E11.9 Type 2 diabetes mellitus without complications; E66.01 Morbid (severe) obesity due to excess calories; Z98.84 Bariatric surgery status
CPT/HCPCS: 43247; 80053; 85025; 96374; J0330; J1100; J1610; J2405; J2704; J7030

== ENCOUNTER → 2021-09-12 12:50 | Outpatient (BNVA) | payer MEDICARE, OTHER, SELFPAY | PROVIDERS: PCP Family Medicine; Visit Provider Nurse Practitioner | DX: F41.1 Generalized anxiety disorder (principal); F43.12 Post-traumatic stress disorder, chronic | CPT/HCPCS: 99214 ==

== ENCOUNTER 2021-10-28 23:41 | Emergency (ER) | payer MEDICARE, OTHER, SELFPAY ==
[2021-10-28 23:50] VITALS: BP 189/87; PULSE 86; RESP 20; TEMP 37.2; O2SAT 97; BMI 51.5
[2021-10-29 00:38] VITALS: BP 214/98; PULSE 79; RESP 20; O2SAT 92
--- NOTE | 2021-10-29 00:45 | ED_ITS ---
HPI - Skin/Abscess/Foreign Bdy General: Chief complaint: Skin/Abscess/Foreign Body Stated complaint: Staf Infection in Chin Time Seen by Provider: 10/28/21 23:46 History of Present Illness: Patient is a 51-year-old male comes to the ED with abscess on chin. Patient says that yesterday he had a small bump on his chin and he squeezed it and some bloody pus draining out of it. Today he woke up and the nodule on his chin and gotten larger. Says if he puts pressure on it some bloody puslike drainage does come out of it. it is tender to the touch. Patient has a history of staph infections. Patient denies any other new symptoms. He has a history of hypertension and type 2 diabetes. Associated symptoms: Deny chills, fever(s), nausea or vomiting Review of Systems Const: Denies: fever(s), chills or fatigue Eyes: Denies: change in vision or eye discomfort ENMT: Denies: throat pain, odynophagia, nasal discharge or nasal congestion Card: Denies: chest pain, palpitations, edema, swelling of feet/ankles, dyspnea on exertion or orthopnea Resp: Denies: dyspnea, productive cough or non-productive cough GI: Denies: abdominal pain, nausea, vomiting, diarrhea, constipation or hematochezia : Denies: flank pain, difficulty urinating, dysuria or hematuria Musc: Denies: neck pain, back pain or extremity swelling Skin/Breast: Reports: new lesions (Small nontender nodule on chin); Denies: rash Neuro: Denies: headache(s), numbness in extremities or weakness in extremities FOR[facility]LY [facility], [facility] ED PFSH: Medical History Encounter for long-term use of opiate analgesic Generalized anxiety disorder Lumbar back pain Opioid contract exists Post-traumatic stress disorder, chronic Psychiatric care Surgical History LAP-BAND surgery status Family History Other CAD (coronary artery disease) Cancer Diabetes Hypertension Psychiatric illness Social History Smoking and tobacco status: never smoked Alcohol intake: never History of recent travel: No Physical Exam Const: COMMON NORMALS: patient oriented x3 and alert GENERAL APPEARANCE: cooperative NUTRITIONAL APPEARANCE: obese morbidly obese HENMT: COMMON NORMALS: normocephalic HEAD & SCALP: normocephalic MOUTH: Normal oral and palatal mucosa present THROAT: posterior oropharynx normal and uvula midline OTHER: On chin patient has a fluctuant and nonindurated tender nodule. Findings suggestive of a possible superficial skin abscess. Neck/C-Spine: COMMON NORMALS: supple GENERAL: Yes normal visual inspection Resp: COMMON NORMALS: normal respiratory effort, No retractions, No use of accessory muscles and clear to auscultation bilaterally AUSCULTATION: clear to auscultation bilaterally Cardio: COMMON NORMALS: regular rate, regular rhythm, S1 normal heart sound present, S2 normal heart sound present, No gallops present (Cardio), No clicks present (Cardio), No murmurs present (Cardio) and Peripheral pulses 2+ throughout RATE: regular rate RHYTHM: regular rhythm HEART SOUNDS: S1 normal heart sound present and S2 normal heart sound present PERIPHERAL PULSES: Peripheral pulses 2+ throughout GI: COMMON NORMALS: Normal to inspection, nondistended, normoactive bowel sounds present, Soft to palpation, non-tender and no masses PALPATION: Yes Soft to palpation : COMMON NORMALS: Yes no CVA tenderness BLADDER/KIDNEY EXAM: Yes no CVA tenderness Back/Pelvis: COMMON NORMALS: no CVA tenderness Neuro: COMMON NORMALS: patient oriented x3 and moves all extremities S ENSORIUM/ORIENTATION: Yes alert Skin: NARRATIVE SKIN EXAM: On chin patient has a fluctuant and nonindurated tender nodule. Findings suggestive of a possible superficial skin abscess. GENERAL SKIN EXAM: dry skin Procedures Abscess I/D Site: face (Chin) Local Anesthetic: lidocaine 1% Amount of anesthesia used (mL): 3 Technique: incised with #11 blade Amount of fluid expressed (mL): 0.5 Packing used?: none Course Vital Signs: Vital signs: Vital Signs Temperature 98.9 F 10/28/21 23:50 Pulse Rate 75 10/29/21 02:46 Respiratory Rate 20 H 10/29/21 02:46 Blood Pressure 175/99 10/29/21 02:46 Pulse Oximetry 92 10/29/21 02:46 MDM - Skin/Abscess/Foreign Bdy Medicial Decision Making Patient is a 51-year-old male comes to the ED with abscess on chin. Past medical history of hypertension, type 2 diabetes and does have a history of past staph infection. Patient denies any other symptoms. He had a blood pressure of 214/98 and the rest of his vitals are stable. He is not having any other symptoms currently. I performed an abscess I&D using lidocaine 1% as local. Very minimal amount of blood drained out but no purulent drainage noted. Patient was given a dose of clindamycin here in the ED. Patient is on blood pressure medications and has been taking them accordingly. He is still not having any symptoms and patient was given a dose of clonidine here in the ED to help with blood pressure. His blood pressure then reduced to 175/99 and he was stable for discharge home. He was diagnosed with abscess of Chin and asymptomatic hypertensive urgency. I sent him home with a prescription for clindamycin. I told him to continue monitoring his blood pressures and call his doctor on Saturday morning to discuss blood pressure readings and to set up a follow-up appointment. Return to ED precautions given. Patient stood agree with plan. Discharge Plan Discharge Patient Disposition: Home Clinical Impression: Abscess of chin, Asymptomatic hypertensive urgency Condition: Stable Prescriptions: New clindamycin HCl 150 mg capsule 300 mg PO QID 7 Days Qty: 56 0RF No Action lorazepam 0.5 mg tablet 1 mg PO DAILY PRN (Reason: unknown) 0RF pregabalin [Lyrica] 200 mg capsule 200 mg PO DAILY@1300 0RF furosemide [Lasix] 20 mg tablet 20 mg PO DAILY@10,19 0RF hydrocodone-acetaminophen 5-325 mg tablet 1 tab PO BID PRN (Reason: pain) 30 Days Qty: 60 0RF mupirocin 2 % ointment 1 applic topical BID Qty: 22 0RF mupirocin 2 % ointment 1 applic topical BID Qty: 22 0RF trazodone 300 mg tablet 300 mg PO .HS Qty: 90 0RF prazosin 5 mg capsule 5 mg PO .HS Qty: 90 0RF Lamictal 200 mg tablet 200 mg PO DAILY@1000 Qty: 90 0RF citalopram [Celexa] 40 mg tablet 40 mg PO DAILY@1000 Qty: 30 2RF methotrexate sodium 2.5 mg tablet 12.5 mg PO .every 7 days 0RF metformin 500 mg tablet extended release 24 hr 500 mg PO DAILY 0RF bupropion HCl 300 mg tablet extended release 24 hr 300 mg PO QAM 0RF cyclobenzaprine 10 mg tablet 10 mg PO TID 0RF Dexilant 30 mg capsule,biphase delayed releas 30 mg PO DAILY 0RF montelukast 10 mg tablet 10 mg PO DAILY 0RF cyanocobalamin (vitamin B-12) 1,000 mcg/mL solution 1,000 mcg IM .every 30 days 0RF ipratropium bromide 21 mcg (0.03 %) spray,non-aerosol 2 spray intranasal BID 0RF Rx Instructions: administer into each nostril azelastine 137 mcg (0.1 %) aerosol,spray 1 spray intranasal .1-4 times a day 0RF Rx Instructions: administer into each nostril Linzess 145 mcg capsule 145 mcg PO DAILY Qty: 90 3RF pantoprazole [Protonix] 40 mg tablet,delayed release (DR/EC) 40 mg PO DAILY Qty: 30 3RF ljytdioc-atqtemsmu-ZT 3.5-10,000-1 mg/mL-unit/mL-% solution See Rx Instructions .ROUTE .COMPLEX 0RF Rx Instructions: use as directed Humulin 70/30 U-100 Insulin 100 unit/mL (70-30) suspension See Rx Instructions .ROUTE .COMPLEX 0RF Rx Instructions: subcutaneously sliding scale at 1000,1300,2200 lisinopril 20 mg tablet 20 mg PO DAILY@1000 0RF codeine-guaifenesin 10-100 mg/5 mL liquid 10 ml PO Q4H PRN (Reason: cold symptoms) Qty: 237 0RF Rx Instructions: Max 60ml/day Discharge Orders: Discharge ED (Routine); Ordered 10/29/21 Ordered By: Torrey Walter Referrals: Agustina Whiting DO [Primary Care Provider] - Discharge Diet: Regular Discharge Activity: Increase activity as tolerated Patient Instructions: Abscess (ED), Hypertensive Crisis (ED) Activity Restrictions/Additional Instructions: Call your PCP on Saturday morning and set up appointment with to recheck your blood pressure. Take medications as prescribed. Return to the ER or your medical provider if condition worsens. Please read and understand discharge instructions. Thank you for choosing [facility] for your healthcare needs today. Please realize this is an emergency room and that we are providing you with a medical screening exam and this may not be complete and all inclusive of all the testing and or work up that you may need to determine your ailment or severity of your illness. It is very important that you follow up as instructed or that you return to the Emergency Department should you have concerns or if your condition changes or worsens in any way. Coding Level of Care Code ED Rehab Office Coordinator for [facility] Fwd Exam Comprehensive
[2021-10-29 01:49] VITALS: BP 213/98
[2021-10-29] MEDS: clindamycin 150 mg Capsule 300 MG PO (01:49)
[2021-10-29] MEDS: cloNIDine 0.1 mg Tablet PO (01:49)
[2021-10-29 02:46] VITALS: BP 175/99; PULSE 75; RESP 20; O2SAT 92
== END 2021-10-29 02:28 | disposition home or self-care (01) ==
PROVIDERS: Emergency Provider Physician Assistant; PCP Family Medicine
DX: L02.01 Cutaneous abscess of face (principal); I16.0 Hypertensive urgency; E11.9 Type 2 diabetes mellitus without complications; I10 Essential (primary) hypertension
CPT/HCPCS: 10060; 99283

== ENCOUNTER → 2021-12-21 10:07 | Outpatient (BNVA) | payer MEDICARE, OTHER, SELFPAY | PROVIDERS: PCP Family Medicine; Visit Provider Nurse Practitioner | DX: F41.1 Generalized anxiety disorder (principal); F43.12 Post-traumatic stress disorder, chronic | CPT/HCPCS: 99214 ==

== ENCOUNTER 2022-02-18 23:49 | Emergency (ER) | payer MEDICARE, OTHER, SELFPAY ==
[2022-02-18 23:55] VITALS: BP 115/77; PULSE 107; RESP 20; TEMP 36.7; O2SAT 100; BMI 50.1
--- NOTE | 2022-02-18 23:59 | ECG_ITS ---
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 Measurements Intervals [place] Rate: 86 P: 51 SC: 155 QRS: -12 QRSD: 100 T: 66 QT: 385 QTc: 461 Interpretive Statements SINUS RHYTHM NONSPECIFIC T-WAVE ABNORMALITY Compared to ECG 06/20/2020 20:07:00 No significant changes Electronically Signed On 02-20-2022 0:39:29 CDT by Neel Pandey M.D. [email or web address]
--- NOTE | 2022-02-18 23:59 | CTR_ITS ---
PROCEDURE INFORMATION: Exam: CT Head Without Contrast Exam date and time: 02/19/2022 12:09 AM Age: 51 years old Clinical indication: Speech disturbance and weakness, extremity; Bilateral; Additional info: Symptoms of acute stroke TECHNIQUE: Imaging protocol: Computed tomography of the head without contrast. Radiation optimization: All CT scans at this facility use at least one of these dose optimization techniques: automated exposure control; mA and/or kV adjustment per patient size (includes targeted exams where dose is matched to clinical indication); or iterative reconstruction. COMPARISON: CT head wo con* [id number] 09/23/2018 11:58 AM RADIATION DOSE METRICS: Total DLP (mGy-cm): 1215.78 FINDINGS: Brain: Normal. No hemorrhage. Unremarkable white matter. No mass effect. 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 Paranasal sinuses: Visualized sinuses are unremarkable. No fluid levels. Mastoid air cells: Visualized mastoid air cells are well aerated. Bones/joints: Unremarkable. No acute fracture. Soft tissues: Unremarkable. CT/CT head wo con* [id number] IMPRESSION: 1. Negative for intracranial hemorrhage. 2. 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
[2022-02-19 00:12] LABS: Basophils # 0.1 10^3/uL (0.0-0.1); Basophils % 0.8 %; Eosinophils # 0.3 10^3/uL (0.0-0.8); Hematocrit 42.6 % (42.0-52.0); Hemoglobin 13.5 g/dL (11.7-16.6); Lymphocytes # 3.8 10^3/uL (0.8-4.8); Lymphocytes % 27.9 %; Mean Corpuscular HGB Conc 31.7 g/dL (30.0-36.0); Mean Corpuscular Hemoglobin 28.1 pg (28.0-34.0); Mean Corpuscular Volume 88.8 fl (80-94); Mean Platelet Volume 10.5 fL (7.4-10.4); Monocytes # 0.6 10^3/uL (0.2-0.9); Monocytes % 4.5 %; Neutrophils % 64.3 %; Nucleated Red Blood Cells % 0 %; Platelet Count 290 10^3/cmm (130-400); Red Cell Distribution Width 15.6 % (12.1-15.1); White Blood Count 13.7 10^3/uL (4.0-10.0)
[2022-02-19 00:28] LABS: INR 0.98 (0.8-1.2)
[2022-02-19 00:29] LABS: Partial Thromboplastin Time 27.7 SECONDS (23.9-36.7)
[2022-02-19 00:36] LABS: Alanine Aminotransferase 15 U/L (0-41); Alkaline Phosphatase 98 IU/L (40-130); Anion Gap 18.9 (5-19); Aspartate Amino Transferase 26 U/L (0-40); Blood Urea Nitrogen 22 mg/dL (6-20); Calcium 9.2 mg/dL (8.5-10.5); Carbon Dioxide 25 mmol/L (22-29); Chloride 101 mmol/L (98-107); Globulin 2.8 g/dL (1.3-4.6); Glomerular Filtration Rate 58.2 mL/min (90-130); Glucose 186 mg/dL (65-115); Osmolality Calculated 300 mOsm/kg (285-295); Potassium 3.9 mmol/L (3.5-5.1); Sodium 141 mmol/L (136-145); Total Bilirubin 0.4 mg/dL (0.15-1.2); Total Protein 6.8 g/dL (6.6-8.7)
[2022-02-19 00:37] LABS: Troponin(5th) Baseline 18 ng/L (0-15)
[2022-02-19 00:37] LABS: Glucose Point of Care 196 mg/dL (70-110)
--- NOTE | 2022-02-19 00:39 | XRR_ITS ---
PROCEDURE INFORMATION: Exam: XR Chest Exam date and time: 02/19/2022 1:36 AM Age: 51 years old Clinical indication: Cough and shortness of breath; Additional info: SOB, with confusion TECHNIQUE: Imaging protocol: Radiologic exam of the chest. Views: 1 view. COMPARISON: CR XR chest 1V portable [id number] 05/06/2021 2:13 PM FINDINGS: Lungs: Mild pulmonary vascular congestion. Bilateral hilar to lower lobe atelectasis versus minimal infiltrate. Pleural spaces: Unremarkable. No pleural effusion. No pneumothorax. Heart/Mediastinum: Cardiomegaly. Bones/joints: Unremarkable. XR/XR chest 1V portable [id number] IMPRESSION: 1. Cardiomegaly. 2. Mild pulmonary vascular congestion. 3. Bilateral hilar to lower lobe atelectasis versus minimal infiltrate.
[2022-02-19 00:41] VITALS: BP 91/55; PULSE 87; RESP 12; O2SAT 90
--- NOTE | 2022-02-19 00:41 | CTR_ITS ---
PROCEDURE INFORMATION: Exam: CTA Head With Contrast, Arteriography Exam date and time: 02/19/2022 1:29 AM Age: 51 years old Clinical indication: Drowsiness or somnolence and numbness and weakness and other: Aphasia, tingling in hands, weakness in legs; Prior surgery; Surgery date: 6+ months; Surgery type: Cervical fusion; Additional info: Cva/menjivar TECHNIQUE: Imaging protocol: Computed tomographic angiography of the head with contrast. Exam focused on the arteries. 3D rendering (Not supervised by radiologist): MIP and/or 3D reconstructed images were created by the technologist. Radiation optimization: All CT scans at this facility use at least one of these dose optimization techniques: automated exposure control; mA and/or kV adjustment per patient size (includes targeted exams where dose is matched to clinical indication); or iterative reconstruction. Contrast material: OMNIPAQUE 350; Contrast volume: 95 ml; Contrast route: INTRAVENOUS (IV); COMPARISON: CT head wo con* [id number] 02/19/2022 12:09 AM RADIATION DOSE METRICS: Total DLP (mGy-cm): 724 FINDINGS: ANTERIOR CIRCULATION: Right internal carotid artery: Unremarkable. Intracranial segment is patent with no significant stenosis. No aneurysm. Right middle cerebral artery: Unremarkable. No occlusion or significant stenosis. No aneurysm. Right anterior cerebral artery: Unremarkable. No occlusion or significant stenosis. No aneurysm. Left internal carotid artery: Unremarkable. Intracranial segment is patent with no significant stenosis. No aneurysm. Left middle cerebral artery: Unremarkable. No occlusion or significant stenosis. No aneurysm. Left anterior cerebral artery: Unremarkable. No occlusion or significant stenosis. No aneurysm. POSTERIOR CIRCULATION: Right vertebral artery: Unremarkable. No occlusion or significant stenosis. No aneurysm. Left vertebral artery: Unremarkable. No occlusion or significant stenosis. No aneurysm. Basilar artery: Unremarkable. No occlusion or significant stenosis. No aneurysm. Right posterior cerebral artery: Unremarkable. No occlusion or significant stenosis. No aneurysm. Left posterior cerebral artery: Unremarkable. No occlusion or significant stenosis. No aneurysm. Brain: No definite mass, mass effect, or midline shift. Cerebral ventricles: No ventriculomegaly. Bones/joints: Unremarkable. No acute fracture. Soft tissues: Unremarkable. PROCEDURE INFORMATION: Exam: CTA Neck With Contrast Exam date and time: 02/19/2022 1:29 AM Age: 51 years old Clinical indication: Drowsiness or somnolence and numbness and weakness and other: Aphasia, tingling in hands, weakness in legs; Prior surgery; Surgery date: 6+ months; Surgery type: Cervical fusion; Additional info: Cva/mejnivar TECHNIQUE: Imaging protocol: Computed tomographic angiography of the neck with contrast. 3D rendering (Not supervised by radiologist): MIP and/or 3D reconstructed images were created by the technologist. Radiation optimization: All CT scans at this facility use at least one of these dose optimization techniques: automated exposure control; mA and/or kV adjustment per patient size (includes targeted exams where dose is matched to clinical indication); or iterative reconstruction. Contrast material: OMNIPAQUE 350; Contrast volume: 95 ml; Contrast route: INTRAVENOUS (IV); COMPARISON: CT angio chest w abd pel w con 09/23/2018 4:50 AM RADIATION DOSE METRICS: Total DLP (mGy-cm): 724 FINDINGS: Right common carotid artery: No stenosis. No dissection or occlusion. Right internal carotid artery: No stenosis of the extracranial segment. No dissection or occlusion. Right external carotid artery: No occlusion or stenosis of the origin. Left common carotid artery: No stenosis. No dissection or occlusion. Left internal carotid artery: No stenosis of the extracranial segment. No dissection or occlusion. Left external carotid artery: No occlusion or stenosis of the origin. Right vertebral artery: No stenosis. No dissection or occlusion. Left vertebral artery: Separate origin from the aorta. No stenosis. No dissection or occlusion. Soft tissues: Normal. No significant soft tissue swelling. Bones/joints: Status post ACDF C4-C7. No acute fracture. CT/CT angio headneck* [id number] IMPRESSION: No large vessel stenosis or occlusion. IMPRESSION: No stenosis or occlusion. REFERENCES: NASCET CRITERIA. The degree of internal carotid artery stenosis is based on NASCET criteria. Normal is no stenosis. Mild is less than 50% stenosis. Moderate is 50-69% stenosis. Severe is 70% to 99% stenosis. Total occlusion is no detectable patent lumen.
[2022-02-19 01:09] LABS: Alcohol Level < 10 mg/dL (0-10)
[2022-02-19 02:09] VITALS: BP 141/76; PULSE 91; RESP 16; O2SAT 90
[2022-02-19 02:40] LABS: Troponin 5 2HR 17.15 ng/L (0-15)
--- NOTE | 2022-02-19 02:47 | W.ED.NEUROSD ---
HPI - Neuro Symptoms/Deficit General: Chief Complaint: Neuro Symptoms/Deficit Stated Complaint: Tingeling In fingers\Cant find words Time Seen by Provider: 02/18/22 23:50 Source: patient Mode of arrival: ambulatory Limitations: no limitations History of Present Illness: 51-year-old male states that today at 1 PM he started having difficulty finding words at times he states he also was having bilateral hand weakness was intermittent he states that he had dropped some spoons patient states he feels improved currently here he is able to speak clearly he has no weakness he is able ambulate he states he has been having some migraines over the last 2 weeks as well. Associated symptoms: Reports headache(s); Deny chest pain, nausea or vomiting Review of Systems Const: Denies: fever(s), chills, body aches or change in appetite Eyes: Denies: blurry vision or eye discomfort ENMT: Denies: throat pain or dental pain Card: Denies: chest pain Resp: Denies: dyspnea GI: Denies: abdominal pain, nausea, vomiting or diarrhea : Denies: dysuria Musc: Denies: neck pain or back pain Skin/Breast: Denies: rash Neuro: Reports: headache(s) and weakness in extremities Psych: Denies: depression Sukumar/Lymph: Denies: easy bruising All/Imm: Denies: urticaria PFSH ED PFSH: Medical History Encounter for long-term use of opiate analgesic Generalized anxiety disorder Lumbar back pain Opioid contract exists Post-traumatic stress disorder, chronic Psychiatric care Surgical History LAP-BAND surgery status Family History Other CAD (coronary artery disease) Cancer Diabetes Hypertension Psychiatric illness Social History Smoking and tobacco status: never smoked Alcohol intake: never History of recent travel: No NIH stroke score NIHSS: Level Of Consciousness - 1a: 0 Level Of Consciousness Questions - 1b: Both Correct Level Of Consciousness Commands - 1c: Both Correct Best Gaze - 2: Normal Visual Monreal - 3: No Visual Loss Facial Palsy - 4: Normal Motor Arm Right - 5: No Drift Motor Arm Left - 5: No Drift Motor Leg Right - 6: No Drift Motor Leg Left - 6: No Drift Limb Ataxia - 7: Absent Sensory - 8: Normal Best Language - 9: No Aphasia Dysarthia - 10: Normal Extinction And Inattention - 11: 0 Score: Total Score: 0 Physical Exam Const: COMMON NORMALS: no acute distress, patient oriented x3 and healthy appearing HENMT: COMMON NORMALS: normocephalic and atraumatic HEAD & SCALP: normocephalic and atraumatic Eye: COMMON NORMALS: Equal, round and reactive pupils present and EOMs intact bilaterally PUPIL: Yes Equal, round and reactive pupils present Neck/C-Spine: COMMON NORMALS: full ROM and supple Chest: COMMONS NORMALS: normal inspection of the chest and normal palpation of entire chest wall Resp: COMMON NORMALS: normal respiratory effort, No retractions, No use of accessory muscles and clear to auscultation bilaterally AUSCULTATION: clear to auscultation bilaterally Cardio: COMMON NORMALS: regular rate, regular rhythm and No murmurs present (Cardio) RATE: regular rate RHYTHM: regular rhythm GI: COMMON NORMALS: Normal to inspection, nondistended, normoactive bowel sounds present, Soft to palpation, non-tender and no masses PALPATION: Yes Soft to palpation Extremity: COMMON NORMALS: normal to inspection and full ROM Neuro: COMMON NORMALS: patient oriented x3, moves all extremities and no focal motor deficits Psych: COMMON NORMALS: mental status grossly normal, Normal thought process present and cooperative THOUGHT PROCESS: Normal thought process present Skin: COMMON NORMALS: no rashes or lesions noted and no wounds GENERAL SKIN EXAM: no rashes or lesions noted Course Vital Signs: Vital signs: Vital Signs Temperature 98.0 F 02/18/22 23:55 Pulse Rate 83 02/19/22 02:53 Respiratory Rate 16 02/19/22 02:53 Blood Pressure 156/79 02/19/22 02:53 Pulse Oximetry 91 02/19/22 02:53 Oxygen Delivery Me thod 02/19/22 02:09 MDM - Neuro Symptoms/Deficit Medical Decision Making 51-year-old male who presented here with some word finding difficulty and weakness at home head CT CTA here are normal he is also been having some headaches as well I did offer him admission to rule out a stroke states he feels improved he just wants to go home and follow-up with PCP in form he is to follow-up with PCP return if worsening he understands agrees to plan. Lab Data : 02/19/22 00:05 02/19/22 00:[address] 02/18/22 23:59 IMPRESSION: 1. Negative for intracranial hemorrhage. 2. 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 Chest X-Ray 02/19/22 00:39 IMPRESSION: 1. Cardiomegaly. 2. Mild pulmonary vascular congestion. 3. Bilateral hilar to lower lobe atelectasis versus minimal infiltrate. Head/Neck CTA 02/19/22 00:41 IMPRESSION: No large vessel stenosis or occlusion. IMPRESSION: No stenosis or occlusion. REFERENCES: NASCET CRITERIA. The degree of internal carotid artery stenosis is based on NASCET criteria. Normal is no stenosis. Mild is less than 50% stenosis. Moderate is 50-69% stenosis. Severe is 70% to 99% stenosis. Total occlusion is no detectable patent lumen. Laboratory Results WBC 13.7 10^3/uL (4.0-10.0) H 02/19/22 00:05 RBC 4.80 10^6/uL (4.1-5.3) 02/19/22 00:05 Hgb 13.5 g/dL (11.7-16.6) 02/19/22 00:05 Hct 42.6 % (42.0-52.0) 02/19/22 00:05 MCV 88.8 fl (80-94) 02/19/22 00:05 MCH 28.1 pg (28.0-34.0) 02/19/22 00:05 MCHC 31.7 g/dL (30.0-36.0) 02/19/22 00:05 RDW 15.6 % (12.1-15.1) H 02/19/22 00:05 Plt Count 290 10^3/cmm (130-400) 02/19/22 00:05 MPV 10.5 fL (7.4-10.4) H 02/19/22 00:05 Neut % (Auto) 64.3 % 02/19/22 00:05 Lymph % (Auto) 27.9 % 02/19/22 00:05 [place] % (Auto) 4.5 % 02/19/22 00:05 Eos % (Auto) 2.0 % 02/19/22 00:05 Baso % (Auto) 0.8 % 02/19/22 00:05 Neut # (Auto) 8.80 10^3/uL (1.8-7.7) H 02/19/22 00:05 Lymph # (Auto) 3.8 10^3/uL (0.8-4.8) 02/19/22 00:05 [place] # (Auto) 0.6 10^3/uL (0.2-0.9) 02/19/22 00:05 Eos # (Auto) 0.3 10^3/uL (0.0-0.8) 02/19/22 00:05 Baso # (Auto) 0.1 10^3/uL (0.0-0.1) 02/19/22 00:05 Nucleated RBC % (auto) 0 % 02/19/22 00:05 Nucleated RBCs # 0.0 /100WBC 02/19/22 00:05 PT 13.30 SECONDS (12.1-14.9) 02/19/22 00:05 INR 0.98 (0.8-1.2) 02/19/22 00:05 APTT 27.7 SECONDS (23.9-36.7) 02/19/22 00:05 Sodium 141 mmol/L (136-145) 02/19/22 00:05 Potassium 3.9 mmol/L (3.5-5.1) 02/19/22 00:05 Chloride 101 mmol/L (98-107) 02/19/22 00:05 Carbon Dioxide 25 mmol/L (22-29) 02/19/22 00:05 Anion Gap 18.9 (5-19) 02/19/22 00:05 BUN 22 mg/dL (6-20) H 02/19/22 00:05 Creatinine 1.3 mg/dL (0.7-1.2) H 02/19/22 00:05 GFR Calculation 58.2 mL/min (90-130) L 02/19/22 00:05 Glucose 186 mg/dL (65-115) H 02/19/22 00:05 POC Glucose 196 mg/dL (70-110) H 02/19/22 00:33 Calculated Osmolality 300 mOsm/kg (285-295) H 02/19/22 00:05 Calcium 9.2 mg/dL (8.5-10.5) 02/19/22 00:05 Total Bilirubin 0.4 mg/dL (0.15-1.2) 02/19/22 00:05 AST 26 U/L (0-40) 02/19/22 00:05 ALT 15 U/L (0-41) 02/19/22 00:05 Alkaline Phosphatase 98 IU/L (40-130) 02/19/22 00:05 Troponin T Baseline 18 ng/L (0-15) H 02/19/22 00:05 Troponin T 120 Minute 17.15 ng/L (0-15) H 02/19/22 01:55 Delta Troponin T -0.85 ABS# (0-10) L 02/19/22 01:55 Total Protein 6.8 g/dL (6.6-8.7) 02/19/22 00:05 Albumin 4.0 g/dL (3.5-5.2) 02/19/22 00:05 Globulin 2.8 g/dL (1.3-4.6) 02/19/22 00:05 Ethyl Alcohol < 10 mg/dL (0-10) 02/19/22 00:05 EKG Data EKG 1: I personally reviewed and interpreted this EKG as follows: EKG interpretation date: 02/19/22 EKG interpretation time: 00:38 Interpretation: nsr hr [address] or t wave abnormalities qrs 100 qtc 428 Discharge Plan Discharge Patient Disposition: Home Clinical Impression: Headache, Bilateral arm weakness, Slurred speech Condition: Stable Prescriptions: No Action lorazepam 0.5 mg tablet 1 mg PO DAILY PRN (Reason: unknown) pregabalin [Lyrica] 200 mg capsule 200 mg PO DAILY@1300 furosemide [Lasix] 20 mg tablet 20 mg PO DAILY@10, hydrocodone-acetaminophen 5-325 mg tablet 1 tab PO BID PRN (Reason: pain) 30 Days Qty: 60 0RF mupirocin 2 % ointment 1 applic topical BID Qty: 22 0RF mupirocin 2 % ointment 1 applic topical BID Qty: 22 0RF metformin 500 mg tablet extended release 24 hr 500 mg PO DAILY bupropion HCl 300 mg tablet extended release 24 hr 300 mg PO QAM cyclobenzaprine 10 mg tablet 10 mg PO TID Dexilant 30 mg capsule,biphase delayed releas 30 mg PO DAILY montelukast 10 mg tablet 10 mg PO DAILY cyanocobalamin (vitamin B-12) 1,000 mcg/mL solution 1,000 mcg IM .every 30 days ipratropium bromide 21 mcg (0.03 %) spray,non-aerosol 2 spray intranasal BID Rx Instructions: administer into each nostril azelastine 137 mcg (0.1 %) aerosol,spray 1 spray intranasal .1-4 times a day Rx Instructions: administer into each nostril Linzess 145 mcg capsule 145 mcg PO DAILY Qty: 90 3RF trazodone 300 mg tablet 300 mg PO .HS Qty: 90 0RF pantoprazole [Protonix] 40 mg tablet,delayed release (DR/EC) 40 mg PO DAILY Qty: 30 3RF citalopram [Celexa] 40 mg tablet 40 mg PO DAILY@1000 Qty: 30 2RF prazosin 5 mg capsule 5 mg PO .HS Qty: 90 0RF Lamictal 200 mg tablet 200 mg PO DAILY@1000 Qty: 90 0RF Humulin 70/30 U-100 Insulin 100 unit/mL (70-30) suspension See Rx Instructions .ROUTE .COMPLEX Rx Instructions: subcutaneously sliding scale at 1000,1300,2200 lisinopril 20 mg tablet 20 mg PO DAILY@1000 Discharge Orders: Discharge ED (Routine); Ordered 02/19/22 Ordered By: Jamie Caban Referrals: Agustina Whiting DO [Primary Care Provider] - 1-3 days Discharge Diet: Advance as tolerated Discharge Activity: Resume usual activity Patient Instructions: Headache, Weakness (ED) Coding Level of Care Code ED Metal Finisher for Carito Arreguin
[2022-02-19 02:49] LABS: Troponin 5 2HR Delta -0.85 ABS# (0-10)
[2022-02-19 02:53] VITALS: BP 156/79; PULSE 83; RESP 16; O2SAT 91
[2022-02-19] MEDS: iohexol 350 mg/mL 100 mL Btl IV (03:06)
== END 2022-02-19 03:07 | disposition home or self-care (01) ==
PROVIDERS: Emergency Provider Emergency Medicine; PCP Family Medicine
DX: R53.1 Weakness (principal); R51.9 Headache, unspecified; R47.81 Slurred speech; Z79.84 Long term (current) use of oral hypoglycemic drugs; Z79.4 Long term (current) use of insulin
CPT/HCPCS: 36416; 70450; 70496; 70498; 71045; 80053; 80307; 82962; 84484; 85025; 85610; 85730; 93005; 99285; Q9967

== ENCOUNTER → 2022-04-24 07:54 | Outpatient (BNVA) | payer MEDICARE, OTHER, SELFPAY | PROVIDERS: PCP Family Medicine; Visit Provider Podiatrist Foot & Ankle Surgery | DX: E11.42 Type 2 diabetes mellitus with diabetic polyneuropathy (principal); M21.371 Foot drop, right foot; M21.612 Bunion of left foot; M21.611 Bunion of right foot; M20.41 Other hammer toe(s) (acquired), right foot; M20.42 Other hammer toe(s) (acquired), left foot; L60.3 Nail dystrophy; L84 Corns and callosities; Z79.4 Long term (current) use of insulin; Z79.84 Long term (current) use of oral hypoglycemic drugs | CPT/HCPCS: 11056; 11721 ==

== ENCOUNTER 2022-04-30 21:04 | Observation (INO) | payer MEDICARE, OTHER, SELFPAY ==
[2022-04-30 21:11] VITALS: BP 198/83; PULSE 70; RESP 22; TEMP 36.8; O2SAT 92; BMI 49.7
--- NOTE | 2022-04-30 21:15 | XRR_ITS ---
PROCEDURE INFORMATION: Exam: XR Chest Exam date and time: 04/30/2022 9:36 PM Age: 51 years old Clinical indication: Pain; Angina pectoris; Additional info: Cp TECHNIQUE: Imaging protocol: Radiologic exam of the chest. Views: 1 view. COMPARISON: CR (CHEST, ) 02/19/2022 1:36 AM FINDINGS: Lungs: Calcified granulomas in the left lung base. The lungs are otherwise clear. Pleural spaces: Unremarkable. No pleural effusion. No pneumothorax. Heart/Mediastinum: Unremarkable. No cardiomegaly. Bones/joints: C-spine hardware. XR/XR chest 1V portable [id number] IMPRESSION: No acute findings.
[2022-04-30 21:19] VITALS: BP 175/60; PULSE 75; RESP 22; O2SAT 93
--- NOTE | 2022-04-30 21:21 | ED_ITS ---
HPI - Chest Pain General: Chief Complaint: Chest Pain Stated Complaint: Chest Pain Time Seen by Provider: 04/30/22 21:20 History of Present Illness: Mr. Lucas is a 51-year-old gentleman with significant past medical history of hypertension, hyperlipidemia, diabetes, obesity presents to the emergency department due to chest pain. He reports first noticing some dull aching earlier this morning however starting this afternoon his pain became significantly more intense. He notes substernal chest pain radiating through to the back associated with shortness of breath and diaphoresis. Not necessarily worse with exertion or any other specific activity. Improved with nitroglycerin. Intensity symptoms is moderate. Course has worsened. No other specific changes in health, exacerbating, or alleviating factors identified. Pertinent past history: other Onset (ago): hour(s) Timing of current episode: constant Prior episodes: No Onset: during exertion Pain location: substernal Pain radiation: back Severity: moderate Quality: aching and heaviness Exacerbating factors: exertion Associated symptoms: Reports diaphoresis, dyspnea and nausea Review of Systems General: Reports: 10 or more systems reviewed and unremarkable except in HPI and below Const: Reports: diaphoresis Resp: Reports: dyspnea GI: Reports: nausea PFSH ED PFSH: Medical History (Updated 05/03/22 @ 00:01 by ) Chest pain Encounter for long-term use of opiate analgesic Generalized anxiety disorder Lumbar back pain Opioid contract exists Post-traumatic stress disorder, chronic Psychiatric care Surgical History (Updated 05/01/22 @ 10:32 by Gilda Mayers MD) History of colonoscopy History of elbow surgery History of lumbar fusion History of neck surgery 3x LAP-BAND surgery status Family History Other CAD (coronary artery disease) Cancer Diabetes Hypertension Psychiatric illness Social History Smoking and tobacco status: never smoked Alcohol intake: never History of recent travel: No Physical Exam Const: COMMON NORMALS: alert GENERAL APPEARANCE: cooperative, well developed and ill appearing (mildly) HENMT: COMMON NORMALS: normocephalic and atraumatic HEAD & SCALP: normocephalic and atraumatic Eye: COMMON NORMALS: conjunctivae normal CONJUNCTIVA: Yes conjunctivae normal SCLERA: sclerae normal Neck/C-Spine: COMMON NORMALS: supple GENERAL: Yes trachea midline Resp: COMMON NORMALS: clear to auscultation bilaterally EFFORT & INSPECTION: Yes able to speak in complete sentences and Yes tachypneic AUSCULTATION: clear to auscultation bilaterally Cardio: COMMON NORMALS: regular rate and regular rhythm RATE: regular rate RHYTHM: regular rhythm GI: COMMON NORMALS: Soft to palpation PALPATION: Yes Soft to palpation and No Tenderness to palpation present (GI) Extremity: GENERAL: Yes normal exam except as noted and No edema Neuro: COMMON NORMALS: moves all extremities SENSORIUM/ORIENTATION: Yes alert and No Orientation impaired Psych: COMMON NORMALS: mental status grossly normal and Normal thought process present THOUGHT PROCESS: Normal thought process present Course Vital Signs: Vital signs: Vital Signs Temperature 98.0 F 05/02/22 07:48 Pulse Rate 89 05/02/22 09:00 Respiratory Rate 22 H 05/02/22 09:00 Blood Pressure 173/83 05/02/22 09:00 Pulse Oximetry 96 05/02/22 09:00 Oxygen Delivery Me thod 05/01/22 08:07 Oxygen Flow Rate 2 05/01/22 08:07 Fraction of Inspir ed Oxygen 21 05/01/22 19:59 MDM - Chest Pain Medical Decision Making 51-year-old gentleman with coronary artery disease risk factors presenting for concern over worsening chest pain and typical cardiac features. Somewhat ill on exam. ASA given. EKG with no STEMI, sinus rhythm. Hematologic panel notable for leukocytosis, normal hemoglobin. No significant metabolic abnormalities to explain symptoms. Delta troponin is negative. Chest x-ray with no lobar consolidation or pneumothorax. Most likely etiology of patient's chest pain is uncertain though patient is not low risk by heart score and therefore requires further evaluation. The results of ED evaluation were discussed with the patient including plan for admission due to requirement for level of care not available if discharged to prevent significant worsening/deterioration. Patient agreeable with plan. Medical Records I reviewed the patient's medical records. Lab Data I reviewed the patient's lab results. : 05/02/22 04:28 05/02/22 04:28 Radiology Impressions Chest X-Ray 04/30/22 21:15 IMPRESSION: No acute findings. KUB X-Ray 05/01/22 02:31 IMPRESSION: 1. Nonspecific nondiagnostic bowel gas pattern. 2. Lap band device in place, unchanged in position. Laboratory Results WBC 15.0 10^3/uL (4.0-10.0) H 04/30/22: RBC 4.40 10^6/uL (4.1-5.3) 04/30/22: Hgb 12.8 g/dL (11.7-16.6) 04/30/22: Hct 39.3 % (42.0-52.0) L 04/30/22: MCV 89.3 fl (80-94) 04/30/22: MCH 29.1 pg (28.0-34.0) 04/30/22: MCHC 32.6 g/dL (30.0-36.0) 04/30/22: RDW 15.7 % (12.1-15.1) H 04/30/22: Plt Count 274 10^3/cmm (130-400) 04/30/22: MPV 10.2 fL (7.4-10.4) 04/30/22: Neut % (Auto) 68.8 % 04/30/22: Lymph % (Auto) 24.8 % 04/30/22: [place] % (Auto) 3.9 % 04/30/22: Eos % (Auto) 0.7 % 04/30/22: Baso % (Auto) 0.7 % 04/30/22: Neut # (Auto) 10.37 10^3/uL (1.8-7.7) H 04/30/22: Lymph # (Auto) 3.7 10^3/uL (0.8-4.8) 04/30/22:30 [place] # (Auto) 0.6 10^3/uL (0.2-0.9) 04/30/22: Eos # (Auto) 0.1 10^3/uL (0.0-0.8) 04/30/22: Baso # (Auto) 0.1 10^3/uL (0.0-0.1) 04/30/22: Nucleated RBC % (auto) 0 % 04/30/22: Nucleated RBCs # 0.0 /100WBC 04/30/22 21:30 Sodium 138 mmol/L (136-145) 04/30/22 21:30 Potassium 4.1 mmol/L (3.5-5.1) 04/30/22 21:30 Chloride 101 mmol/L (98-107) 04/30/22 21:30 Carbon Dioxide 27 mmol/L (22-29) 04/30/22 21:30 Anion Gap 14.1 (5-19) 04/30/22 21:30 BUN 13 mg/dL (6-20) 04/30/22 21:30 Creatinine 0.8 mg/dL (0.7-1.2) 04/30/22 21:30 GFR Calculation 101.9 mL/min (90-130) 04/30/22 21:30 Glucose 179 mg/dL (65-115) H 04/30/22 21:30 Calculated Osmolality 291 mOsm/kg (285-295) 04/30/22 21:30 Calcium 9.1 mg/dL (8.5-10.5) 04/30/22 21:30 Total Bilirubin 0.2 mg/dL (0.15-1.2) 04/30/22 21:30 AST 13 U/L (0-40) 04/30/22 21:30 ALT 14 U/L (0-41) 04/30/22 21:30 Alkaline Phosphatase 93 U/L (40-130) 04/30/22 21:30 Troponin T Baseline 13 ng/L (0-15) 04/30/22 21:30 Troponin T 120 Minute 12.89 ng/L (0-15) 04/30/22 23:28 Delta Troponin T -0.11 ABS# (0-10) L 04/30/22 23:28 Total Protein 6.7 g/dL (6.6-8.7) 04/30/22 21:30 Albumin 3.9 g/dL (3.5-5.2) 04/30/22 21:30 Globulin 2.8 g/dL (1.3-4.6) 04/30/22 21:30 Lipase 22 U/L (13-60) 04/30/22 21:30 Discharge Plan Discharge Patient Disposition: Placed in Observation Admit Provider: Gilda Mayers Clinical Impression: Chest pain Coding Level of Care Code ED Fruit Tester for Chg Fwd
--- NOTE | 2022-04-30 21:23 | ECG_ITS ---
[facility] Test Date: 2022-04-30 Pat Name: Sergei Lucas Department: Room: Gender: Male Township Clerk: : 1970 Requested By: Jamie Caban Order Number: [id number] Sergio MD: Urbano Mcgee M.D. Measurements Intervals [place] Rate: 78 P: 44 CT: 175 QRS: -5 QRSD: 80 T: 31 QT: 346 QTc: 395 Interpretive Statements SINUS RHYTHM SEPTAL MYOCARDIAL INFARCTION , OF INDETERMINATE AGE [40+ ms Q WAVE IN V1/V2] INFERIOR MYOCARDIAL INFARCTION , PROBABLY OLD [40+ ms Q WAVE AND/OR ST/T ABNORMALITY IN II/aVF] Compared to ECG 02/19/2022 00:38:28 Myocardial infarct finding now present T-wave abnormality no longer present Electronically Signed On 05-01-2022 3:46:23 CDT by Urbano Mcgee M.D. [id number]
[2022-04-30 21:43] LABS: Basophils # 0.1 10^3/uL (0.0-0.1); Basophils % 0.7 %; Eosinophils # 0.1 10^3/uL (0.0-0.8); Eosinophils % 0.7 %; Hematocrit 39.3 % (42.0-52.0); Hemoglobin 12.8 g/dL (11.7-16.6); Lymphocytes # 3.7 10^3/uL (0.8-4.8); Lymphocytes % 24.8 %; Mean Corpuscular HGB Conc 32.6 g/dL (30.0-36.0); Mean Corpuscular Hemoglobin 29.1 pg (28.0-34.0); Mean Corpuscular Volume 89.3 fl (80-94); Mean Platelet Volume 10.2 fL (7.4-10.4); Monocytes # 0.6 10^3/uL (0.2-0.9); Monocytes % 3.9 %; Neutrophils # 10.37 10^3/uL (1.8-7.7); Neutrophils % 68.8 %; Nucleated Red Blood Cells % 0 %; Platelet Count 274 10^3/cmm (130-400); Red Cell Distribution Width 15.7 % (12.1-15.1)
[2022-04-30 22:04] LABS: Alanine Aminotransferase 14 U/L (0-41); Albumin Level 3.9 g/dL (3.5-5.2); Alkaline Phosphatase 93 U/L (40-130); Anion Gap 14.1 (5-19); Aspartate Amino Transferase 13 U/L (0-40); Blood Urea Nitrogen 13 mg/dL (6-20); Calcium 9.1 mg/dL (8.5-10.5); Carbon Dioxide 27 mmol/L (22-29); Chloride 101 mmol/L (98-107); Globulin 2.8 g/dL (1.3-4.6); Glomerular Filtration Rate 101.9 mL/min (90-130); Glucose 179 mg/dL (65-115); Osmolality Calculated 291 mOsm/kg (285-295); Potassium 4.1 mmol/L (3.5-5.1); Sodium 138 mmol/L (136-145); Total Bilirubin 0.2 mg/dL (0.15-1.2); Total Protein 6.7 g/dL (6.6-8.7)
[2022-04-30 22:05] LABS: Troponin(5th) Baseline 13 ng/L (0-15)
[2022-04-30 22:12] LABS: Lipase 22 U/L (13-60)
[2022-04-30 22:27] VITALS: BP 151/61; PULSE 65; RESP 20; O2SAT 92
--- NOTE | 2022-04-30 23:15 | ECG_ITS ---
[facility] Test Date: 2022-05-01 Pat Name: Sergei Lucas Department: Room: [facility] Gender: Male Snaker Driving Horses: : 1970 Requested By: Jamie Caban Order Number: [id number] Sergio MD: Urbano Mcgee M.D. Measurements Intervals [place] Rate: 58 P: 33 MN: 138 QRS: 15 QRSD: 109 T: 46 QT: 408 QTc: 402 Interpretive Statements SINUS BRADYCARDIA NONSPECIFIC T-WAVE ABNORMALITY Compared to ECG 04/30/2022 21:23:01 T-wave abnormality now present Sinus rhythm no longer present Myocardial infarct finding no longer present Electronically Signed On 05-01-2022 3:47:36 CDT by Urbano Mcgee M.D. [id number]
[2022-04-30 23:24] VITALS: BP 143/55; PULSE 62; RESP 16; O2SAT 95
[2022-04-30] MEDS: aspirin 81 mg Chew Tablet 324 MG PO (23:26)
[2022-04-30] MEDS: nitroglycerin 0.4 mg sublingual Tablet SUBLINGUAL (23:26)
[2022-05-01] VITALS (47 sets, daily range): BP systolic 139–203; BP diastolic 52–101; PULSE 49–88; RESP 12–24; TEMP 36.8–36.9; O2SAT 82–98; BMI 49.1
--- NOTE | 2022-05-01 | ECG_ITS ---
[facility] Test Date: 2022-05-01 Pat Name: Sergei Lucas Department: Room: ICU04 Gender: Male Side Stitcher: : 1970 Requested By: Gilda Mayers Order Number: [id number] Sergio MD: Britney Zamarripa M.D. Interpretive Statements NAME OF STUDY: LEXISCAN SESTAMIBI STRESS TEST INDICATION: Chest Pain PROCEDURE: At the baseline, the blood pressure was 200/106 mmHg with a heart rate of 55 bpm. The electrocardiogram showed sinus bradycardia, normal axis with possible old anteroseptal infarct. The Lexiscan was infused over a period of 20 seconds. A total of 0.4 milligrams of Lexiscan was infused. The stress phase was continued for a total of 5 minutes. Heart rate at the end of the stress phase was 86 bpm with a blood pressure of 253/123 mmHg. The EKG at the peak infusion revealed sinus rhythm at 86 bpm with no significant ST-T wave changes. The study was terminated due to protocol completion. Sestamibi was injected 20 seconds after the Lexiscan infusion. Blood pressure at the end of the recovery phase was 198/99 mmHg with a heart rate of 73 beats per minute. CONCLUSION: 1. Normal EKG response to LexiScan infusion. 2. No LexiScan induced chest pain or cardiac arrhythmia. 3. Baseline hypertension with normal blood pressure and heart rate response. 4. Sestamibi/sestamibi perfusion scan pending; see separate report. Electronically Signed On 05-01-2022 13:20:02 CDT by Britney Zamarripa M.D. [id number]
[2022-05-01 00:04] LABS: Troponin 5 2HR 12.89 ng/L (0-15)
[2022-05-01 00:40] LABS: Troponin 5 2HR Delta -0.11 ABS# (0-10)
--- NOTE | 2022-05-01 02:31 | XRR_ITS ---
PROCEDURE INFORMATION: Exam: XR Abdomen Exam date and time: 05/01/2022 3:29 AM Age: 51 years old Clinical indication: Abdominal pain; Generalized; Prior surgery; Surgery type: Lap band; Patient HX: C/O diffuse abd pain. ; Additional info: Abd pain, can change to portable TECHNIQUE: Imaging protocol: Radiologic exam of the abdomen. Views: Frontal supine view of the abdomen. 1 View. COMPARISON: CT abdomen pelvis w con* [id number] 03/05/2021 2:27 AM FINDINGS: Tubes, catheters and devices: Lap band device in place, unchanged in position. Gastrointestinal tract: No significant or disproportionate large or small bowel distention. Gas and stool demonstrated within the colon. Bones/joints: Lower lumbar degenerative and postsurgical changes. Soft tissues: Large body habitus. XR/XR KUB portable [id number] IMPRESSION: 1. Nonspecific nondiagnostic bowel gas pattern. 2. Lap band device in place, unchanged in position.
[2022-05-01] MEDS: HYDROcodone-acetaminophen 5-325 mg Tablet 1 TAB PO ×4 (03:12→21:11)
--- NOTE | 2022-05-01 03:15 | ECG_ITS ---
[facility] Test Date: 2022-05-01 Pat Name: Sergei Lucas Department: Room: [facility]04 Gender: Male Compliance Analyst: : 1970 Requested By: Jamie Caban Order Number: [id number] Sergio MD: Urbano Mcgee M.D. Measurements Intervals [place] Rate: 59 P: 38 CO: 142 QRS: 23 QRSD: 106 T: 62 QT: 416 QTc: 413 Interpretive Statements SINUS BRADYCARDIA SEPTAL MYOCARDIAL INFARCTION , OF INDETERMINATE AGE [40+ ms Q WAVE IN V1/V2] Compared to ECG 05/01/2022 00:19:50 Myocardial infarct finding now present T-wave abnormality no longer present Electronically Signed On 05-01-2022 3:47:20 CDT by Urbano Mcgee M.D. [id number]
[2022-05-01 03:39] LABS: Troponin 5 6HR 13.06 ng/L (0-15)
--- NOTE | 2022-05-01 04:18 | NMCV_ITS ---
NM jhony perf SPECT r/s* [id number] Sergei Lucas Age: 51 Gender: M : 1970 Exam Date: 05/01/2022 11:26 Ordering Phys: Gilda Mayers MD Technologist: JAYY Ny Exam Location: [facility] Indications: CHEST PAIN STRESS TEST [facility] IMAGE PROTOCOL Rest/Stress 1 Lexiscan Day Radiopharmaceutical Dose (mCi) Administration Site Administered by Rest: Tc-99m 11.0 IV JAYY Iraheta Sestamibi Stress:Tc-99m 33.0 IV JAYY Iraheta Sestamibi Rest: 01-May-2022 60 Discovery 630 Stress: 01-May-2022 30 Discovery 630 0.4mg Lexiscan. Supine position only as patient was unable to lay prone. SPECT RESULTS Technical Quality: Good Raw Data Analysis: Soft tissue attenuation Image Corrections: No attenuation or motion correction applied Summed Stress Score: 0 Summed Rest Score: 0 Summed Difference Score: 0 PERFUSION FINDINGS Small sized fixed perfusion abnormality of mild severity of mid inferoseptal wall on rest and stress images. FUNCTIONAL RESULTS (calculated via Gated SPECT) Stress Image LV EF (%): 45 Stress EDV (mL):181 TID: 0.9 Stress ESV (mL):99 FUNCTIONAL FINDINGS: The left ventricle is normal in size. Transient Ischemia Dilatation of 0.9. The left ventricular ejection fraction is mildly reduced with a value of 45%. There is mildly decreased wall thickening. Increased end-diastolic and end-systolic volumes. IMPRESSIONS 1. Small sized fixed perfusion abnormality of mild severity of mid inferoseptal wall. This may represent attenuation artifact in absence of prone imaging or old myocardial infarction in right coronary artery territory. 2. The left ventricular ejection fraction is mildly reduced with a value of 45%. 3. There is mildly decreased wall thickening. 4. EKG portion of the study will be reported separately. 5. No coronary ischemia based on the study. Britney Zamarripa MD (Electronically Signed) Final Date: 01 May 2022 16:14 S
--- NOTE | 2022-05-01 04:23 | P.HP_ITS ---
Providers/Chief Complaint Admitting Physician: Gilda Mayers MD Primary Care Provider: Agustina Whiting DO Chief Complaint: Chest Pain History of Present Illness Sergei Lucas is a 51 year old male with a past medical history of diabetes mellitus, hypertension, chronic pain presenting to the emergency room with chest pain today. States that the pain is located in the retrosternal area. However also reports epigastric and left upper quadrant region. Pain is nonradiating, 5 on 10 at its peak, relieved with nitro. Review of systems is positive for constipation over the past week. Also reports difficulty initiating urinary stream with some burning. No fever or flank pain. Review of Systems General: Reports: 10 or more systems reviewed and unremarkable except in HPI and below Const: Denies: fever(s), chills or body aches Eyes: Denies: change in vision, blurry vision or photophobia ENMT: Reports: hoarseness; Denies: throat pain, enlarged tonsils, odynophagia or nasal congestion Card: Denies: chest pain, palpitations, irregular heart rhythm, edema, swelling of feet/ankles, lightheadedness, pre-syncope, dyspnea on exertion or orthopnea Resp: Denies: dyspnea, productive cough, non-productive cough, wheezing, stridor, pain on inspiration, change in phlegm color, hemoptysis or chest congestion GI: Denies: abdominal pain, nausea, vomiting, hematemesis, coffee ground emesis, dysphagia, heartburn, diarrhea, constipation, GI cramping, change in stool character, hematochezia or melena : Denies: flank pain, dysuria, urinary frequency, urinary urgency, urinary hesitancy or hematuria Musc: Denies: neck pain, back pain, extremity pain, joint swelling, joint warmth or deformity Neuro: Denies: headache(s), numbness in extremities, weakness in extremities, sensory changes, difficulty walking, frequent falls, dizziness, vertigo, behavioral changes, Slurred speech present or seizure-like activity Psych: Denies: anxiety, depression, suicidal ideation or homicidal ideation Endo: Denies: polyuria, polydipsia, tired all the time, cold intolerance or hot flashes Sukumar/Lymph: Denies: easy bruising or easy bleeding Medications/Allergies Home Medications Medication Instructions Recorded Confirmed Last Taken Type furosemide 20 mg tablet (Lasix) 20 mg PO DAILY@10,19 09/15/19 04/24/22 06/20/20 History lorazepam 0.5 mg tablet 1 mg PO DAILY PRN unknown 09/15/19 04/24/22 Unknown History pregabalin 200 mg capsule (Lyrica) 200 mg PO DAILY@1300 /10/0104/24/22 06/20/20 History hydrocodone 5 mg-acetaminophen 325 1 tab PO BID PRN pain 30 days #60 11/03/19 04/24/22 06/20/20 Rx mg tablet tabs insulin human U-100 NPH-regulr See Rx Instructions .Route .COMPLEX 06/20/20 04/24/22 06/20/20 History 70-30 mix 100 unit/mL subcutaneous susp (Humulin 70/30 U-100 Insulin) lisinopril 20 mg tablet 20 mg PO DAILY@1000 06/20/20 04/24/22 06/20/20 History mupirocin 2 % topical ointment 1 applic topical BID #22 grams 09/19/20 04/24/22 Unknown Rx mupirocin 2 % topical ointment 1 applic topical BID #22 grams 02/22/21 04/24/22 Unknown Rx azelastine 137 mcg (0.1 %) nasal 1 spray intranasal .1-4 times a day 07/24/21 04/24/22 Unknown History spray aerosol bupropion HCl 300 mg 24 hr tablet, 300 mg PO QAM 07/24/21 04/24/22 Unknown H istory extended release cyanocobalamin (vitamin B-12) 1,000 mcg IM .every 30 days 07/24/21 04/24/22 Unknown History 1,000 mcg/mL injection solution cyclobenzaprine 10 mg tablet 10 mg PO TID 07/24/21 04/24/22 Unknown History dexlansoprazole 30 mg 30 mg PO DAILY 07/24/21 04/24/22 Unknown History capsule,biphase delayed release (Dexilant) ipratropium bromide 21 mcg (0.03 2 spray intranasal BID 07/24/21 04/24/22 Unknown History %) nasal spray metformin 500 mg tablet,extended 500 mg PO DAILY 07/24/21 04/24/22 Unknown History release 24 hr montelukast 10 mg tablet 10 mg PO DAILY 07/24/21 04/24/22 Unknown History linaclotide 145 mcg capsule 145 mcg PO DAILY #90 caps 08/07/21 04/24/22 Unknown Rx (Linzess) pantoprazole 40 mg tablet,delayed 40 mg PO DAILY #30 tabs 12/25/21 04/24/22 Unknown Rx release (Protonix) citalopram 40 mg tablet (Celexa) 40 mg PO DAILY@1000 #30 tabs 03/21/22 04/24/22 Unknown Rx folic acid 1 mg tablet 1 mg PO DAILY 03/21/22 04/24/22 Unknown History lamotrigine 200 mg tablet 200 mg PO DAILY@1000 #90 tabs 03/21/22 04/24/22 Unknown Rx (Lamictal) methotrexate sodium 2.5 mg tablet See Rx Instructions PO .weekly 03/21/22 04/24/22 Unknown History prazosin 5 mg capsule 5 mg PO .HS #90 caps 03/21/22 04/24/22 Unknown Rx trazodone 300 mg tablet 300 mg PO .HS #90 tabs 03/21/22 04/24/22 Unknown Rx Diabetic shoes with 3 inserts #1 ea 04/24/22 04/24/22 Unknown Rx Allergies Allergy/AdvReac Type Severity Reaction Status Date / Time promethazine [From Phenergan] Allergy Unknown HARD TO Verified 04/24/22 08:04 BREATH PFSH Acute PFSH: Medical History Encounter for long-term use of opiate analgesic Generalized anxiety disorder Lumbar back pain Opioid contract exists Post-traumatic stress disorder, chronic Psychiatric care Surgical History (Updated 05/01/22 @ 10:32 by Gilda Mayers MD) History of colonoscopy History of elbow surgery History of lumbar fusion History of neck surgery 3x LAP-BAND surgery status Family History Other CAD (coronary artery disease) Cancer Diabetes Hypertension Psychiatric illness Social History Smoking and tobacco status: never smoked Alcohol intake: never History of recent travel: No Vitals/I&O/Wt Last Vital Signs Temp 98.4 F 05/01/22 02:00 Pulse 71 05/01/22 03:00 Resp 24 H 05/01/22 03:00 BP 169/88 05/01/22 03:00 Pulse Ox 96 05/01/22 03:00 O2 Del Method 05/01/22 02:00 O2 Flow Rate 2 05/01/22 02:00 04/30/22 04/30/22 05/01/22 14:59 22:59 06:59 Output Total 555 / 555 Balance -555 / -555 Weight last 48 hrs Weight 146.465 kg Weight 148.325 kg Physical Exam Narrative: General: No acute distress, AO x3 HEENT: PERRLA, pupils bilaterally equal and reactive, pallors not present Chest: Normal vesicular breath sounds, no added sounds, equal good air entry bilaterally CVS: S1-S2 regular, no murmurs, no tachycardia, no gallops, no rubs Abdomen: Soft, nontender, no organomegaly, bowel sounds present Neuro: No focal deficits, no facial deformity, AO x3, power 5/5 in all limbs Data : 05/01/22 02:32 05/01/22 02:32 A&P Assessment and plan (1) Chest pain: Patient with multiple risk factors for CAD presenting today for chest pain. EKG without any acute ST-T wave changes. Troponin at baseline 2 hours and 6 hours without significant delta. Given multiple risk factors, retrosternal chest pain relieved with nitro concern for angina. Will obtain cardiac stress test HE has received 325 mg ASA in the ER Added Laxatives for constipation Continue home doses of opiates, lasix , lamotrigine. Attestations Medical Necessity Statement*: anticipate less than 2 midnight stay to obtain cardiac stress test Coding Level of Care Code Acute Concrete Products Machine Operator for Carito Arreguin Diagnoses Chest pain R07.9
[2022-05-01 04:27] LABS: Troponin 5 6HR Delta 0.06 ng/L (0-12)
[2022-05-01 04:29] LABS: Add Urine Microscopic? YES; Bilirubin Urine Neg (Negative); Blood Urine Neg (Negative); Glucose Urine UA 1+ (Normal); Ketones Urine Negative (Negative); Leukocyte Esterase Urine Negative (Negative); Nitrate Urine Negative (Negative); Protein Urine 2+ (Negative); Urine Appearance Clear (CLEAR); Urine Color Yellow (Yellow); Urobilinogen Urine Norm (Negative); pH Urine 5 (5-7)
[2022-05-01 04:30] LABS: Mucus Urine 2+ /hpf; Squamous Epithelial Cell Urine 0-4 /hpf (0-5)
[2022-05-01 04:31] LABS: Add Urine Culture? No
[2022-05-01 04:37] LABS: Basophils # 0.1 10^3/uL (0.0-0.1); Basophils % 0.6 %; Eosinophils # 0.2 10^3/uL (0.0-0.8); Eosinophils % 1.1 %; Hematocrit 36.5 % (42.0-52.0); Hemoglobin 11.6 g/dL (11.7-16.6); Lymphocytes # 3.9 10^3/uL (0.8-4.8); Lymphocytes % 28.2 %; Mean Corpuscular HGB Conc 31.8 g/dL (30.0-36.0); Mean Corpuscular Hemoglobin 28.7 pg (28.0-34.0); Mean Corpuscular Volume 90.3 fl (80-94); Mean Platelet Volume 10.6 fL (7.4-10.4); Monocytes # 0.6 10^3/uL (0.2-0.9); Monocytes % 4.5 %; Neutrophils # 8.92 10^3/uL (1.8-7.7); Neutrophils % 64.7 %; Nucleated Red Blood Cells % 0 %; Platelet Count 259 10^3/cmm (130-400); Red Blood Count 4.04 10^6/uL (4.1-5.3); Red Cell Distribution Width 15.9 % (12.1-15.1); White Blood Count 13.8 10^3/uL (4.0-10.0)
[2022-05-01 04:46] LABS: D Dimer 0.35 ug/mIFEU (0-0.59)
[2022-05-01 04:52] LABS: Alanine Aminotransferase 11 U/L (0-41); Albumin Level 3.8 g/dL (3.5-5.2); Alkaline Phosphatase 86 U/L (40-130); Anion Gap 12.8 (5-19); Aspartate Amino Transferase 11 U/L (0-40); Blood Urea Nitrogen 16 mg/dL (6-20); Carbon Dioxide 30 mmol/L (22-29); Chloride 103 mmol/L (98-107); Globulin 2.2 g/dL (1.3-4.6); Glucose 72 mg/dL (65-115); Osmolality Calculated 294 mOsm/kg (285-295); Potassium 3.8 mmol/L (3.5-5.1); Sodium 142 mmol/L (136-145); Total Bilirubin 0.3 mg/dL (0.15-1.2)
[2022-05-01] MEDS: buPROPion XL (24 HR) 300 mg Tablet PO (05:20)
[2022-05-01] MEDS: enoxaparin 40 mg/0.4 mL Syringe SUBCUT (05:20)
[2022-05-01] MEDS: lisinopril 20 mg Tablet PO (08:38)
[2022-05-01] MEDS: pantoprazole DR 40 mg Tablet PO (08:38)
[2022-05-01] MEDS: citalopram 20 mg Tablet 40 MG PO (08:38)
[2022-05-01] MEDS: bisacodyl 5 mg Tablet 10 MG PO (08:46)
[2022-05-01] MEDS: FUROsemide 20 mg Tablet PO ×2 (08:47→18:17)
[2022-05-01] MEDS: lamoTRIgine 100 mg Tablet 200 MG PO (08:47)
--- NOTE | 2022-05-01 11:58 | PC.PHAR ---
PT AND PTS VERIFIED PTS MEDICATIONS-RX FILLED 04/26/22 30D/S FOR LYRICA 200MG Q12H- PT STATES HE TAKES THE 200MG [id number] STATES THE PT TAKES 200MG Q12H AND 150MG BID FILLED 04/04/22 30D/S-RX FILLED LIPITOR 40MG DAILY 04/18/22 30D/S PT STATES WAS TAKING 80MG DAILY BUT NOW TAKING 40MG DAILY-PTS STATES THE PTS DOSE GERMAN HAS 80MG DAILY FILLED 04/04/22 30D/S-PT STATES HIS METHOTREXATE IS ON HOLD-NOTES ARE MADE IN THE PHARMACY COMMENTS
[2022-05-01] MEDS: regadenoson 0.4 Mg/5 ml Syringe IVP (12:20)
[2022-05-01] MEDS: magnesium hydroxide 30 mL UDC 15 ML PO (13:50)
[2022-05-01] MEDS: pregabalin 100 mg Capsule 200 MG PO (13:50)
[2022-05-01] MEDS: prazosin 5 mg Capsule PO (21:11)
[2022-05-01] MEDS: trazodone 150 mg Tablet 300 MG PO (21:11)
[2022-05-01] MEDS: sennosides 8.6 mg Tablet 17.2 MG PO (21:12)
[2022-05-01] MEDS: insulin lispro 100 unit/1 mL SUBCUT (21:24)
[2022-05-01 21:27] LABS: Glucose Point of Care 236 mg/dL (70-110)
[2022-05-01] MEDS: nitroglycerin 1 gm/inch oint Pkt 1 INCH TOPICAL (22:17)
[2022-05-01] MEDS: hyDRALAzine 20 mg/mL INJ 1 mL 10 MG IVP (22:18)
[2022-05-01] MEDS: cyclobenzaprine 10 mg Tablet 5 MG PO (22:22)
[2022-05-02] VITALS (11 sets, daily range): BP systolic 129–173; BP diastolic 68–83; PULSE 52–89; RESP 12–22; TEMP 36.6–36.7; O2SAT 95–98
[2022-05-02] MEDS: enoxaparin 40 mg/0.4 mL Syringe SUBCUT (04:29)
[2022-05-02 05:00] LABS: Basophils # 0.1 10^3/uL (0.0-0.1); Basophils % 0.5 %; Eosinophils # 0.2 10^3/uL (0.0-0.8); Eosinophils % 1.2 %; Hematocrit 36.5 % (42.0-52.0); Hemoglobin 11.5 g/dL (11.7-16.6); Lymphocytes # 2.8 10^3/uL (0.8-4.8); Lymphocytes % 22.3 %; Mean Corpuscular HGB Conc 31.5 g/dL (30.0-36.0); Mean Corpuscular Hemoglobin 28.6 pg (28.0-34.0); Mean Corpuscular Volume 90.8 fl (80-94); Mean Platelet Volume 10.7 fL (7.4-10.4); Monocytes # 0.6 10^3/uL (0.2-0.9); Monocytes % 4.5 %; Neutrophils # 8.98 10^3/uL (1.8-7.7); Neutrophils % 70.5 %; Nucleated Red Blood Cells % 0 %; Platelet Count 204 10^3/cmm (130-400); Red Blood Count 4.02 10^6/uL (4.1-5.3); Red Cell Distribution Width 15.9 % (12.1-15.1); White Blood Count 12.7 10^3/uL (4.0-10.0)
[2022-05-02 05:27] LABS: Alanine Aminotransferase 11 U/L (0-41); Albumin Level 3.7 g/dL (3.5-5.2); Alkaline Phosphatase 99 U/L (40-130); Anion Gap 16.1 (5-19); Aspartate Amino Transferase 12 U/L (0-40); Blood Urea Nitrogen 14 mg/dL (6-20); Carbon Dioxide 31 mmol/L (22-29); Chloride 98 mmol/L (98-107); Globulin 2.6 g/dL (1.3-4.6); Glucose 178 mg/dL (65-115); Osmolality Calculated 297 mOsm/kg (285-295); Potassium 4.1 mmol/L (3.5-5.1); Sodium 141 mmol/L (136-145); Total Bilirubin 0.5 mg/dL (0.15-1.2); Total Protein 6.3 g/dL (6.6-8.7)
[2022-05-02] MEDS: buPROPion XL (24 HR) 300 mg Tablet PO (06:08)
[2022-05-02 07:44] LABS: Glucose Point of Care 170 mg/dL (70-110)
--- NOTE | 2022-05-02 08:03 | PM.DCS ---
Discharge Providers Date of Admission: 05/01/22 01:50 Date of Discharge: May 01, 2022 Attending Provider at Admission: Gilda Mayers MD Attending Provider at Discharge: Brandie Abarca MD Primary Care Provider: Agustina Whiting DO Diagnoses at Discharge Discharge Diagnosis (1) Chest pain: Status: Acute Reason for Visit Reason for Visit: Chest Pain Hospital Course Hospital Course 51-year-old male who was admitted to the hospital because of epigastric pain and atypical chest pain, stress test was requested because of his moderate risk factors, patient has not had any bowel movement in last 8 days, I have given him milk of magnesia p.o. and milk of molasses enema patient is not complaining of chest pain on 05/01, EKG showing sinus rhythm troponin unremarkable, stress test was requested. No signs of ileus or obstruction on KUB. Pressures was unremarkable EF 45% Patient has obstructive sleep apnea uses CPAP at home I have asked him to follow-up with PCP to review his medications he has too many medications on board He remained hemodynamically stable Responded well to bowel regimen felt better after having a bowel movement Physical Exam Narrative: Morbidly obese Currently on CPAP Awake and alert Hemodynamically stable No active chest pain S1, S2 Abdomen soft, sluggish bowel sounds No signs of edema Pleasant and cooperative Discharge Data Studies Completed and Pending Completed Studies During Hospitalization Category Date Time Status XR KUB portable [id number] Routine Exams 05/01/22 02:31 Completed XR chest 1V portable [id number] Stat Exams 04/30/22 21:15 Completed Pending at discharge Category Date Time Status Cardiac Stress Test MIBI [Sestamibi Stress Test Request Exams 05/01/22 04:15 Ordered ] Routine Complete Blood Count w/Auto AM LABS Lab 05/02/22 04:00 Ordered Comprehensive Metabolic Panel AM LABS Lab 05/02/22 04:00 Ordered NM jhony perf SPECT r/s* [id number] Routine Nuc Med 05/01/22 04:18 Ordered Radiology Impressions Chest X-Ray 04/30/22 21:15 IMPRESSION: No acute findings. KUB X-Ray 05/01/22 02:31 IMPRESSION: 1. Nonspecific nondiagnostic bowel gas pattern. 2. Lap band device in place, unchanged in position. Laboratory Results WBC 13.8 10^3/uL (4.0-10.0) H 05/01/22 02:32 RBC 4.04 10^6/uL (4.1-5.3) L 05/01/22 02:32 Hgb 11.6 g/dL (11.7-16.6) L 05/01/22 02:32 Hct 36.5 % (42.0-52.0) L 05/01/22 02:32 MCV 90.3 fl (80-94) 05/01/22 02:32 MCH 28.7 pg (28.0-34.0) 05/01/22 02:32 MCHC 31.8 g/dL (30.0-36.0) 05/01/22 02:32 RDW 15.9 % (12.1-15.1) H 05/01/22 02:32 Plt Count 259 10^3/cmm (130-400) 05/01/22 02:32 MPV 10.6 fL (7.4-10.4) H 05/01/22 02:32 Neut % (Auto) 64.7 % 05/01/22 02:32 Lymph % (Auto) 28.2 % 05/01/22 02:32 [place] % (Auto) 4.5 % 05/01/22 02:32 Eos % (Auto) 1.1 % 05/01/22 02:32 Baso % (Auto) 0.6 % 05/01/22 02:32 Neut # (Auto) 8.92 10^3/uL (1.8-7.7) H 05/01/22 02:32 Lymph # (Auto) 3.9 10^3/uL (0.8-4.8) 05/01/22 02:32 [place] # (Auto) 0.6 10^3/uL (0.2-0.9) 05/01/22 02:32 Eos # (Auto) 0.2 10^3/uL (0.0-0.8) 05/01/22 02:32 Baso # (Auto) 0.1 10^3/uL (0.0-0.1) 05/01/22 02:32 Nucleated RBC % (auto) 0 % 05/01/22 02:32 Nucleated RBCs # 0.0 /100WBC 05/01/22 02:32 D-Dimer 0.35 ug/mIFEU (0-0.59) 05/01/22 02:32 Sodium 142 mmol/L (136-145) 05/01/22 02:32 Potassium 3.8 mmol/L (3.5-5.1) 05/01/22 02:32 Chloride 103 mmol/L (98-107) 05/01/22 02:32 Carbon Dioxide 30 mmol/L (22-29) H 05/01/22 02:32 Anion Gap 12.8 (5-19) 05/01/22 02:32 BUN 16 mg/dL (6-20) 05/01/22 02:32 Creatinine 0.9 mg/dL (0.7-1.2) 05/01/22 02:32 GFR Calculation 89.0 mL/min (90-130) L 05/01/22 02:32 Glucose 72 mg/dL (65-115) 05/01/22 02:32 Calculated Osmolality 294 mOsm/kg (285-295) 05/01/22 02:32 Calcium 9.0 mg/dL (8.5-10.5) 05/01/22 02:32 Total Bilirubin 0.3 mg/dL (0.15-1.2) 05/01/22 02:32 AST 11 U/L (0-40) 05/01/22 02:32 ALT 11 U/L (0-41) 05/01/22 02:32 Alkaline Phosphatase 86 U/L (40-130) 05/01/22 02:32 Troponin T Baseline 13 ng/L (0-15) 04/30/22 21:30 Troponin T 120 Minute 12.89 ng/L (0-15) 04/30/22 23:28 Delta Troponin T -0.11 ABS# (0-10) L 04/30/22 23:28 Troponin T Hi Sens 6Hr 13.06 ng/L (0-15) 05/01/22 02:32 Troponin T Hi Sens 6Hr Delta 0.06 ng/L (0-12) 05/01/22 02:32 Total Protein 6.0 g/dL (6.6-8.7) L 05/01/22 02:32 Albumin 3.8 g/dL (3.5-5.2) 05/01/22 02:32 Globulin 2.2 g/dL (1.3-4.6) 05/01/22 02:32 Lipase 22 U/L (13-60) 04/30/22 21:30 Urine Color Yellow (Yellow) 05/01/22 03:00 Urine Appearance Clear (CLEAR) 05/01/22 03:00 Urine pH 5 (5-7) 05/01/22 03:00 Ur Specific [place] 1.020 (1.005-1.030) 05/01/22 03:00 Urine Protein 2+ (Negative) H 05/01/22 03:00 Urine Glucose (UA) 1+ (Normal) H 05/01/22 03:00 Urine Ketones Negative (Negative) 05/01/22 03:00 Urine Blood Neg (Negative) 05/01/22 03:00 Urine Nitrate Negative (Negative) 05/01/22 03:00 Urine Bilirubin Neg (Negative) 05/01/22 03:00 Urine Urobilinogen Norm mg/dL (Negative) 05/01/22 03:00 Ur Leukocyte Esterase Negative (Negative) 05/01/22 03:00 Urine RBC None /hpf (0-2) 05/01/22 03:00 Urine WBC None /hpf (0-5) 05/01/22 03:00 Ur Squamous Epith Cells 0-4 /hpf (0-5) H 05/01/22 03:00 Amorphous Sediment Not Reportable 05/01/22 03:00 Urine Bacteria None /hpf (NONE) 05/01/22 03:00 Urine Mucus 2+ /hpf 05/01/22 03:00 Vitals Last Vital Signs Temp 98.4 F 05/01/22 02:00 Pulse 60 05/01/22 08:07 Resp 16 05/01/22 08:07 BP 172/88 05/01/22 07:40 Pulse Ox 96 05/01/22 08:22 O2 Del Method 05/01/22 08:07 O2 Flow Rate 2 05/01/22 08:07 FiO2 21 05/01/22 10:00 Discharge Plan Discharge Patient Disposition: Home Condition: Stable Prescriptions: New lactulose 10 gram/15 mL solution 40 g PO DAILY PRN (Reason: constipation) Qty: 473 1RF Continued pregabalin [Lyrica] 200 mg capsule 200 mg PO Q12H furosemide [Lasix] 20 mg tablet See Rx Instructions .ROUTE .COMPLEX Rx Instructions: 20MG PO ONCE A DAY THEN ALTERNATES WITH 40MG THE NEXT DAY hydrocodone-acetaminophen 5-325 mg tablet 1 tab PO BID PRN (Reason: pain) 30 Days Qty: 60 0RF metformin 500 mg tablet extended release 24 hr 500 mg PO QAM cyclobenzaprine 10 mg tablet 10 mg PO TID PRN (Reason: Muscle Spasm) montelukast 10 mg tablet 10 mg PO DAILY cyanocobalamin (vitamin B-12) 1,000 mcg/mL solution 1,000 mcg IM .every 30 days (DME) Diabetic shoes with 3 inserts See Rx Instructions .Route .MEDSUPPLY Qty: 1 0RF Rx Instructions: As directed by [facility] methotrexate sodium 2.5 mg tablet 15 mg PO Q7D Rx Instructions: ON MONDAYS (MED ON HOLD PER PT) folic acid 1 mg tablet 1 mg PO DAILY PRN (Reason: UNKNOWN) Lamictal 200 mg tablet 200 mg PO DAILY@1000 Qty: 90 0RF citalopram [Celexa] 40 mg tablet 40 mg PO DAILY@1000 Qty: 30 2RF pantoprazole [Protonix] 40 mg tablet,delayed release (DR/EC) 40 mg PO DAILY Qty: 30 3RF Humulin 70/30 U-100 Insulin 100 unit/mL (70-30) suspension See Rx Instructions .ROUTE .COMPLEX Rx Instructions: 60-72 UNITS THREE TO FOUR TIMES A DAY Zyrtec 10 mg Tablet 10 mg PO DAILY prazosin 5 mg capsule 5 mg PO BEDTIME nystatin 100,000 unit/gram cream 1 applic TOPICAL BID Benadryl Allergy 25 mg Tablet 25 mg PO BID PRN (Reason: Allergy Symptoms) Nitrostat 0.4 mg Tablet, Sublingual 0.4 mg SUBLINGUAL Q5M PRN (Reason: Chest Pain) Rx Instructions: do not exceed 3 doses per episode trazodone 300 mg tablet 300 mg PO BEDTIME nystatin 100,000 unit/gram powder 1 applic TOPICAL DAILY PRN (Reason: UNKNOWN) lorazepam 1 mg tablet 1 mg PO DAILY PRN (Reason: Anxiety) levofloxacin 500 mg tablet 500 mg PO DAILY Rx Instructions: RX FILLED 04/27/22 7D/S albuterol sulfate 90 mcg/actuation HFA aerosol inhaler 2 puff INHALATION Q6H PRN (Reason: Shortness Of Breath) rizatriptan 5 mg tablet,disintegrating 5 mg PO . DIRECTED MDD 30MG PRN (Reason: Migraine Headache) lisinopril 40 mg tablet 40 mg PO DAILY fluticasone propionate 50 mcg/actuation spray,suspension 2 spray INTRANASAL DAILY PRN (Reason: Allergy Symptoms) Nasal [place] (oxymetazoline) 0.05 % [place],Non-Aerosol 2 spray INTRANASAL Q12H PRN (Reason: UNKNOWN) Symbicort 160-4.5 mcg/actuation HFA aerosol inhaler 2 puff INHALATION BID PRN (Reason: UNKNOWN) Linzess 145 mcg capsule 145 mcg PO DAILY PRN (Reason: Constipation) [facility] Leg Cramps 1 tab PO BID PRN (Reason: LEG CRAMPS) pregabalin 150 mg capsule 150 mg PO BID Discontinued atorvastatin 40 mg tablet 40 mg PO DAILY Discharge Orders: Discharge Order (Routine); Ordered 05/02/22 Ordered By: Brandie Abarca Referrals: Agustina Whiting DO [Primary Care Provider] - Patient Instructions: Opioid Safety Discharge Attestations Time Spent in Discharge Care*: less than 30 min Quality Metrics Clinical Quality Measures [ No reported AMI, CVA or VTE this stay] Coding Level of Care Code Acute Chg FW DC note Diagnoses Chest pain R07.9
[2022-05-02] MEDS: citalopram 20 mg Tablet 40 MG PO (08:12)
[2022-05-02] MEDS: FUROsemide 20 mg Tablet PO (08:12)
[2022-05-02] MEDS: insulin lispro 100 unit/1 mL SUBCUT (08:12)
[2022-05-02] MEDS: pantoprazole DR 40 mg Tablet PO (08:12)
[2022-05-02] MEDS: bisacodyl 5 mg Tablet 10 MG PO (08:12)
[2022-05-02] MEDS: lamoTRIgine 100 mg Tablet 200 MG PO (08:13)
[2022-05-02] MEDS: lisinopril 20 mg Tablet PO (08:13)
== END 2022-05-02 10:37 | disposition home or self-care (01) ==
LOC: ER 23:08 → ICU 05-01 00:17
PROVIDERS: Emergency Medicine; Admitting Provider Student in an Organized Health Care Education/Training Program; Emergency Provider Emergency Medicine; PCP Family Medicine; Visit Provider Internal Medicine
DX: R07.89 Other chest pain (principal); E66.01 Morbid (severe) obesity due to excess calories; Z68.42 Body mass index [BMI] 45.0-49.9, adult; E11.9 Type 2 diabetes mellitus without complications; I10 Essential (primary) hypertension; Z79.4 Long term (current) use of insulin; F41.1 Generalized anxiety disorder; Z98.84 Bariatric surgery status
CPT/HCPCS: 36415; 36416; 71045; 74018; 78452; 80053; 81001; 82962; 83690; 84484; 85025; 85378; 93005; 93017; 94660; 96372; 96374; 99285; A9500; G0378; J0360; J1650; J1815; J2785

== ENCOUNTER 2022-06-06 21:35 | Emergency (ER) | payer MEDICARE, OTHER, SELFPAY ==
[2022-06-06 21:50] VITALS: BP 147/85; PULSE 81; RESP 19; TEMP 36.9; O2SAT 94; BMI 50.1
--- NOTE | 2022-06-06 22:14 | W.ED.COVID ---
HPI - COVID General: Chief Complaint: COVID symptoms Stated Complaint: Possible Covid Time Seen by Provider: 06/06/22 22:13 History of Present Illness: 51-year-old male patient comes in [facility] for complaints of cough and congestion for 10 days. Patient took a home test for COVID and it was positive. Patient appears nontoxic. Patient appears to have some shortness of breath. Patient does have a history of COPD, obesity, diabetes mellitus, anxiety disorder, chronic back pain. COVID 19 common symptoms: positive dyspnea; negative fever(s) COVID 19 other sytmptoms: negative chest pain COVID Results: SARS-CoV-2 Antigen (Rapid) negative (Negative) 06/06/22 22:23 Review of Systems Const: Denies: fever(s) Card: Denies: chest pain Resp: Reports: dyspnea PFSH ED PFSH: Medical History (Updated 06/07/22 @ 00:06 by LUBNA Rick) Chest pain Encounter for long-term use of opiate analgesic Generalized anxiety disorder Lumbar back pain Opioid contract exists Post-traumatic stress disorder, chronic Psychiatric care Surgical History (Updated 05/01/22 @ 10:32 by Gilda Mayers MD) History of colonoscopy History of elbow surgery History of lumbar fusion History of neck surgery 3x LAP-BAND surgery status Family History Other CAD (coronary artery disease) Cancer Diabetes Hypertension Psychiatric illness Social History Smoking and tobacco status: never smoked Alcohol intake: never History of recent travel: No Physical Exam Const: COMMON NORMALS: alert HENMT: COMMON NORMALS: normocephalic HEAD & SCALP: normocephalic Neck/C-Spine: COMMON NORMALS: full ROM Resp: COMMON NORMALS: normal respiratory effort AUSCULTATION: diminished lung sounds bilateral in the lower lung chacon Cardio: COMMON NORMALS: regular rate and regular rhythm RATE: regular rate RHYTHM: regular rhythm GI: COMMON NORMALS: non-tender : COMMON NORMALS: Yes no CVA tenderness BLADDER/KIDNEY EXAM: Yes no CVA tenderness Back/Pelvis: COMMON NORMALS: no CVA tenderness Extremity: COMMON NORMALS: no pedal edema Neuro: SENSORIUM/ORIENTATION: Yes alert Skin: COMMON NORMALS: turgor normal GENERAL SKIN EXAM: turgor normal Course Vital Signs: Vital signs: Vital Signs Temperature 98.4 F 06/06/22 21:50 Pulse Rate 81 06/06/22 21:50 Respiratory Rate 19 H 06/06/22 21:50 Blood Pressure 147/85 06/06/22 21:50 Pulse Oximetry 94 06/06/22 23:21 Oxygen Delivery Me thod 06/06/22 23:21 MDM - COVID Medical Decision Making 51-year-old male patient comes in [facility] for complaints of cough and shortness of breath and positive home COVID test. Patient has had illness for about 10 days. On exam patient has decreased breath sounds in the lung chacon. Patient has no edema in the lower extremities. Abdomen soft nontender. Skin is warm and dry. Vital signs are normal except for some elevation of blood pressure at 147 systolic. Differential diagnosis includes COVID-19, influenza, pneumonia. Chest x-ray was unremarkable. Influenza and COVID test was negative. We will go ahead and start patient on doxycycline 100 mg twice a day for 7 days to treat for either a early pneumonia or persistent bronchitis. Patient will continue with his routine home medications and treatments. Recommend follow-up with primary care in 1 week or return to the ER for worsening symptoms. Patient and spouse both reported understanding. Lab Data Laboratory Results Influenza Type A Ag negative (Negative) 06/06/22 22:23 Influenza Type B Ag negative (Negative) 06/06/22 22:23 SARS-CoV-2 Ag (Rapid) negative (Negative) 06/06/22 22:23 SARS-CoV-2 Antigen (Rapid) negative (Negative) 06/06/22 22:23 Discharge Plan Discharge Patient Disposition: Home Clinical Impression: Bronchitis Condition: Stable Prescriptions: New doxycycline monohydrate 100 mg capsule 100 mg PO BID 7 Days Qty: 14 0RF No Action pregabalin [Lyrica] 200 mg capsule 200 mg PO Q12H furosemide [Lasix] 20 mg tablet See Rx Instructions .ROUTE .COMPLEX Rx Instructions: 20MG PO ONCE A DAY THEN ALTERNATES WITH 40MG THE NEXT DAY hydrocodone-acetaminophen 5-325 mg tablet 1 tab PO BID PRN (Reason: pain) 30 Days Qty: 60 0RF metformin 500 mg tablet extended release 24 hr 500 mg PO QAM cyclobenzaprine 10 mg tablet 10 mg PO TID PRN (Reason: Muscle Spasm) montelukast 10 mg tablet 10 mg PO DAILY cyanocobalamin (vitamin B-12) 1,000 mcg/mL solution 1,000 mcg IM .every 30 days (DME) Diabetic shoes with 3 inserts See Rx Instructions .Route .MEDSUPPLY Qty: 1 0RF Rx Instructions: As directed by [facility] methotrexate sodium 2.5 mg tablet 15 mg PO Q7D Rx Instructions: ON MONDAYS (MED ON HOLD PER PT) folic acid 1 mg tablet 1 mg PO DAILY PRN (Reason: UNKNOWN) Lamictal 200 mg tablet 200 mg PO DAILY@1000 Qty: 90 0RF citalopram [Celexa] 40 mg tablet 40 mg PO DAILY@1000 Qty: 30 2RF pantoprazole [Protonix] 40 mg tablet,delayed release (DR/EC) 40 mg PO DAILY Qty: 30 3RF Humulin 70/30 U-100 Insulin 100 unit/mL (70-30) suspension See Rx Instructions .ROUTE .COMPLEX Rx Instructions: 60-72 UNITS THREE TO FOUR TIMES A DAY Zyrtec 10 mg Tablet 10 mg PO DAILY prazosin 5 mg capsule 5 mg PO BEDTIME nystatin 100,000 unit/gram cream 1 applic TOPICAL BID Benadryl Allergy 25 mg Tablet 25 mg PO BID PRN (Reason: Allergy Symptoms) Nitrostat 0.4 mg Tablet, Sublingual 0.4 mg SUBLINGUAL Q5M PRN (Reason: Chest Pain) Rx Instructions: do not exceed 3 doses per episode trazodone 300 mg tablet 300 mg PO BEDTIME nystatin 100,000 unit/gram powder 1 applic TOPICAL DAILY PRN (Reason: UNKNOWN) lorazepam 1 mg tablet 1 mg PO DAILY PRN (Reason: Anxiety) levofloxacin 500 mg tablet 500 mg PO DAILY Rx Instructions: RX FILLED 04/27/22 7D/S albuterol sulfate 90 mcg/actuation HFA aerosol inhaler 2 puff INHALATION Q6H PRN (Reason: Shortness Of Breath) rizatriptan 5 mg tablet,disintegrating 5 mg PO . DIRECTED MDD 30MG PRN (Reason: Migraine Headache) lisinopril 40 mg tablet 40 mg PO DAILY fluticasone propionate 50 mcg/actuation spray,suspension 2 spray INTRANASAL DAILY PRN (Reason: Allergy Symptoms) Nasal [place] (oxymetazoline) 0.05 % [place],Non-Aerosol 2 spray INTRANASAL Q12H PRN (Reason: UNKNOWN) Symbicort 160-4.5 mcg/actuation HFA aerosol inhaler 2 puff INHALATION BID PRN (Reason: UNKNOWN) Linzess 145 mcg capsule 145 mcg PO DAILY PRN (Reason: Constipation) [place] Leg Cramps 1 tab PO BID PRN (Reason: LEG CRAMPS) lactulose 10 gram/15 mL solution 40 g PO DAILY PRN (Reason: constipation) Qty: 473 1RF pregabalin 150 mg capsule 150 mg PO BID Senna-S 8.6-50 mg tablet 1 tab-cap PO DAILY Qty: 60 0RF Discharge Orders: Discharge ED (Routine); Ordered 06/07/22 Ordered By: Ricardo Khalil Referrals: Agustina Whiting DO [Primary Care Provider] - Discharge Diet: Usual diet Discharge Activity: Increase activity as tolerated Patient Instructions: Acute Bronchitis (ED) Activity Restrictions/Additional Instructions: Home and rest. Continue with routine medications. Take doxycycline 100 mg twice a day for the next 7 days. Follow-up with primary care in 1 week. Return to ED for worsening symptoms such as increased shortness of breath, severe chest pain, inability to hold fluids down, or new concerns. Coding Level of Care Code ED Glaze Carrier for Carito Arreguin
--- NOTE | 2022-06-06 22:48 | XRR_ITS ---
PROCEDURE INFORMATION: Exam: XR Chest Exam date and time: 06/07/2022 12:46 AM Age: 51 years old Clinical indication: Patient HX: C/O cough; Additional info: Cough, history of pneumonia, TECHNIQUE: Imaging protocol: Radiologic exam of the chest. Views: 1 view. COMPARISON: CR (CHEST, ) 04/30/2022 9:36 PM FINDINGS: Tubes, catheters and devices: Stable postoperative metallic fixation of the cervical spine with or without metallic artifact. Lungs: Unremarkable. No consolidation. Pleural spaces: Unremarkable. No pleural effusion. No pneumothorax. Heart/Mediastinum: Unremarkable. No cardiomegaly. Bones/joints: Unremarkable. XR/XR chest 1V portable [id number] IMPRESSION: No acute findings.
[2022-06-06 22:55] VITALS: O2SAT 95
[2022-06-06 22:56] LABS: SARS Covid-2 Antigen negative (Negative)
[2022-06-06 23:21] VITALS: O2SAT 94
[2022-06-06 23:26] LABS: Influenza A by IFA negative (Negative); Influenza B by IFA negative (Negative)
[2022-06-07] MEDS: doxycycline 100 mg Tablet PO (00:12)
== END 2022-06-07 00:11 | disposition home or self-care (01) ==
PROVIDERS: Emergency Medicine; Emergency Provider Nurse Practitioner Family; PCP Family Medicine
DX: J40 Bronchitis, not specified as acute or chronic (principal); J44.9 Chronic obstructive pulmonary disease, unspecified; Z20.822 Contact with and (suspected) exposure to COVID-19; E66.9 Obesity, unspecified; E11.9 Type 2 diabetes mellitus without complications; Z68.43 Body mass index [BMI] 50.0-59.9, adult; Z79.4 Long term (current) use of insulin; Z79.84 Long term (current) use of oral hypoglycemic drugs
CPT/HCPCS: 71045; 87426; 87804; 99284

== ENCOUNTER 2022-07-17 22:32 | Emergency (ER) | payer MEDICARE, OTHER, SELFPAY ==
[2022-07-17 23:10] VITALS: BP 188/65; PULSE 79; RESP 20; TEMP 36.7; O2SAT 95; BMI 48.6
--- NOTE | 2022-07-18 00:02 | CTR_ITS ---
PROCEDURE INFORMATION: Exam: CT Temporal Bones With Contrast. Exam date and time: 07/18/2022 12:54 AM Age: 52 years old Clinical indication: Patient HX: C/O bilateral ear pain; Additional info: Concern for malignant otitis externa TECHNIQUE: Imaging protocol: Computed tomography of the temporal bones with contrast. Radiation optimization: All CT scans at this facility use at least one of these dose optimization techniques: automated exposure control; mA and/or kV adjustment per patient size (includes targeted exams where dose is matched to clinical indication); or iterative reconstruction. Contrast material: OMNI 350; Contrast volume: 100 ml; Contrast route: INTRAVENOUS (IV); COMPARISON: CT head wo con* [id number] 02/19/2022 12:09 AM RADIATION DOSE METRICS: Total DLP (mGy-cm): 311.18 FINDINGS: Right inner ear: Normal. Right ossicles and middle ear: Normal. The middle ear ossicles are intact. Right external auditory canal: There is mild mucosal thickening in the right external auditory canal with a small amount of debris consistent with otitis externa. Right facial nerve canal: Normal. Right jugular foramen: No jugular dehiscence. Right carotid canal: No aberrant carotid canal. Right mastoid air cells: There is a small amount of fluid in the right mastoid air cells. Left inner ear: Normal. Left ossicles and middle ear: Normal. The middle ear ossicles are intact. Left external auditory canal: Normal. Left facial nerve canal: Normal. Left jugular foramen: No jugular dehiscence. Left carotid canal: No aberrant carotid canal. Left mastoid air cells: Normal. No mastoid effusions. Soft tissues: Unremarkable. CT/CT temporal bones w con [id number] IMPRESSION: Mild right otitis externa and mastoid effusion.
--- NOTE | 2022-07-18 00:15 | PC.NURSE ---
Pt given a snack of omayra crackers and peanut butter with cola to drink.
[2022-07-18 00:32] LABS: Basophils # 0.1 10^3/uL (0.0-0.1); Basophils % 0.6 %; Eosinophils # 0.2 10^3/uL (0.0-0.8); Eosinophils % 1.5 %; Hematocrit 40.9 % (42.0-52.0); Hemoglobin 12.7 g/dL (11.7-16.6); Lymphocytes # 4.1 10^3/uL (0.8-4.8); Lymphocytes % 27.2 %; Mean Corpuscular HGB Conc 31.1 g/dL (30.0-36.0); Mean Corpuscular Hemoglobin 28.5 pg (28.0-34.0); Mean Corpuscular Volume 91.9 fl (80-94); Mean Platelet Volume 10.1 fL (7.4-10.4); Monocytes # 0.8 10^3/uL (0.2-0.9); Monocytes % 5.2 %; Neutrophils # 9.56 10^3/uL (1.8-7.7); Nucleated Red Blood Cells % 0 %; Platelet Count 283 10^3/cmm (130-400); Red Blood Count 4.45 10^6/uL (4.1-5.3); Red Cell Distribution Width 15.3 % (12.1-15.1); White Blood Count 14.9 10^3/uL (4.0-10.0)
[2022-07-18 00:52] LABS: Alanine Aminotransferase 13 U/L (0-41); Albumin Level 3.9 g/dL (3.5-5.2); Alkaline Phosphatase 95 U/L (40-130); Anion Gap 14.8 (5-19); Aspartate Amino Transferase 16 U/L (0-40); Blood Urea Nitrogen 17 mg/dL (6-20); C Reactive Protein 34.4 mg/L (0.0-4.9); Calcium 8.9 mg/dL (8.5-10.5); Carbon Dioxide 31 mmol/L (22-29); Chloride 103 mmol/L (98-107); Globulin 3.1 g/dL (1.3-4.6); Glomerular Filtration Rate 70.3 mL/min (90-130); Glucose 46 mg/dL (65-115); Osmolality Calculated 299 mOsm/kg (285-295); Potassium 3.8 mmol/L (3.5-5.1); Sodium 145 mmol/L (136-145); Total Bilirubin 0.2 mg/dL (0.15-1.2)
[2022-07-18 00:57] LABS: Erythrocyte Sedimentation Rate 25 mm/hr (0-10)
[2022-07-18 01:12] LABS: Glucose Point of Care 80 mg/dL (70-110)
[2022-07-18] MEDS: iohexol 350 mg/mL 500 mL Btl (per mL) IV (01:15)
--- NOTE | 2022-07-18 03:10 | W.ED.EAR ---
Documented by User: [email or web address] August 07/18/22 03:53 HPI - Ear Problem General: Chief complaint: Ear Stated complaint: Right ear pain down into jaw Time Seen by Provider: 07/17/22 23:22 History of Present Illness: Patient is in today for complaints of right ear pain over 1 month. He reports that he has been having significant pain in his right ear. He reports that it is extended to his entire right side of his face and head to his scalp behind his ear. He reports that over the past 4 days he has been having fever low-grade. He offers that he just finished Levaquin antibiotic for ear infection on the right side. He does report that he is diabetic. Associated symptoms: Reports ear or mastoid pain, fever(s) and headache(s) Review of Systems Const: Reports: fever(s), chills, body aches and fatigue ENMT: Reports: throat pain, ear or mastoid pain, ear discharge and sinus pain Card: Denies: chest pain, palpitations or irregular heart rhythm Resp: Denies: dyspnea, productive cough or non-productive cough GI: Denies: abdominal pain, nausea or vomiting Neuro: Reports: headache(s) [facility] ED PFSH: Medical History Chest pain Encounter for long-term use of opiate analgesic Generalized anxiety disorder Lumbar back pain Opioid contract exists Post-traumatic stress disorder, chronic Psychiatric care Surgical History History of colonoscopy History of elbow surgery History of lumbar fusion History of neck surgery 3x LAP-BAND surgery status Family History Other CAD (coronary artery disease) Cancer Diabetes Hypertension Psychiatric illness Social History Smoking and tobacco status: never smoked Alcohol intake: never History of recent travel: No Physical Exam Const: COMMON NORMALS: patient oriented x3 and alert OTHER: Patient appears in obvious pain holding the right side of his head and face. 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 Right TM is not visualized related to debris in the EAC. There is a whitish moist debris in the EAC. Patient does have moderate pain with manipulation of the tragus. Left TM within normal limits. Patient does have postnasal drainage appreciated otherwise posterior oropharynx is unremarkable. Uvula is midline. Neck/C-Spine: COMMON NORMALS: no JVD Resp: COMMON NORMALS: normal respiratory effort, No use of accessory muscles and clear to auscultation bilaterally AUSCULTATION: clear to auscultation bilaterally Cardio: COMMON NORMALS: no JVD, regular rate, regular rhythm, S1 normal heart sound present, S2 normal heart sound present and No murmurs present (Cardio) RATE: regular rate RHYTHM: regular rhythm HEART SOUNDS: S1 normal heart sound present and S2 normal heart sound present Neuro: COMMON NORMALS: patient oriented x3 and CN's II-XII intact bilaterally SENSORIUM/ORIENTATION: Yes alert Course Vital Signs: Vital signs: Vital Signs Temperature 98.1 F 07/17/22 23:10 Pulse Rate 79 07/18/22 04:10 Respiratory Rate 18 07/18/22 04:10 Blood Pressure 145/89 07/18/22 04:10 Pulse Oximetry 98 07/18/22 04:10 Oxygen Delivery Me thod 07/17/22 23:10 MDM - Ear Medical Decision Making Consider otitis externa, malignant otitis externa given patient is diabetic and is worsening symptoms after fluoroquinolone antibiotic course. White blood cell count is elevated however patient has a baseline elevation of white blood cell count looking back at previous labs. White blood cell count today is 14.9 which is slightly higher than baseline labs that I am able to review. Blood sugar was low at 46 patient did have a snack and recheck was 80 blood sugar. ESR and CRP are elevated. CT scan temporal bone with contrast is ordered to further evaluate for malignant otitis externa. CT shows otitis externa with mastoid effusion. Patient has been treated with systemic fluoroquinolone, but has not used topical. Treat patient with ofloxacin. Pharmacy does not have this in stock here tonight I spoke with the pharmacist who recommended ciprofloxacin ophthalmic solution for the 1 dose tonight and then going ahead and letting the patient fill the ofloxacin when pharmacy is open for continued dosing. Case management referral was made to ENT. This patient is a diabetic patient who has been on fluoroquinolone antibiotics systemically and is now on a topical antibiotic with ongoing otitis externa and mastoid effusion. 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 Patient does have a pain contract and will continue his normally scheduled pain medication as needed, waiting at least 6 hours after his 1 dose of Percocet. Lab Data 07/18/22 00:11 07/18/22 00:11 Radiology Impressions Temporal Bone CT 07/18/22 00:02 IMPRESSION: Mild right otitis externa and mastoid effusion. Laboratory Results WBC 14.9 10^3/uL (4.0-10.0) H 07/18/22 00:11 RBC 4.45 10^6/uL (4.1-5.3) 07/18/22 00:11 Hgb 12.7 g/dL (11.7-16.6) 07/18/22 00:11 Hct 40.9 % (42.0-52.0) L 07/18/22 00:11 MCV 91.9 fl (80-94) 07/18/22 00:11 MCH 28.5 pg (28.0-34.0) 07/18/22 00:11 MCHC 31.1 g/dL (30.0-36.0) 07/18/22 00:11 RDW 15.3 % (12.1-15.1) H 07/18/22 00:11 Plt Count 283 10^3/cmm (130-400) 07/18/22 00:11 MPV 10.1 fL (7.4-10.4) 07/18/22 00:11 Neut % (Auto) 64.0 % 07/18/22 00:11 Lymph % (Auto) 27.2 % 07/18/22 00:11 Morgan % (Auto) 5.2 % 07/18/22 00:11 Eos % (Auto) 1.5 % 07/18/22 00:11 Baso % (Auto) 0.6 % 07/18/22 00:11 Neut # (Auto) 9.56 10^3/uL (1.8-7.7) H 07/18/22 00:11 Lymph # (Auto) 4.1 10^3/uL (0.8-4.8) 07/18/22 00:11 Morgan # (Auto) 0.8 10^3/uL (0.2-0.9) 07/18/22 00:11 Eos # (Auto) 0.2 10^3/uL (0.0-0.8) 07/18/22 00:11 Baso # (Auto) 0.1 10^3/uL (0.0-0.1) 07/18/22 00:11 Nucleated RBC % (auto) 0 % 07/18/22 00:11 Nucleated RBCs # 0.0 /100WBC 07/18/22 00:11 ESR 25 mm/hr (0-10) H 07/18/22 00:11 Sodium 145 mmol/L (136-145) 07/18/22 00:11 Potassium 3.8 mmol/L (3.5-5.1) 07/18/22 00:11 Chloride 103 mmol/L (98-107) 07/18/22 00:11 Carbon Dioxide 31 mmol/L (22-29) H 07/18/22 00:11 Anion Gap 14.8 (5-19) 07/18/22 00:11 BUN 17 mg/dL (6-20) 07/18/22 00:11 Creatinine 1.1 mg/dL (0.7-1.2) 07/18/22 00:11 GFR Calculation 70.3 mL/min (90-130) L 07/18/22 00:11 Glucose 46 mg/dL (65-115) L 07/18/22 00:11 POC Glucose 80 mg/dL (70-110) 07/18/22 01:09 Calculated Osmolality 299 mOsm/kg (285-295) H 07/18/22 00:11 Calcium 8.9 mg/dL (8.5-10.5) 07/18/22 00:11 Total Bilirubin 0.2 mg/dL (0.15-1.2) 07/18/22 00:11 AST 16 U/L (0-40) 07/18/22 00:11 ALT 13 U/L (0-41) 07/18/22 00:11 Alkaline Phosphatase 95 U/L (40-130) 07/18/22 00:11 C-Reactive Protein 34.4 mg/L (0.0-4.9) H 07/18/22 00:11 Total Protein 7.0 g/dL (6.6-8.7) 07/18/22 00:11 Albumin 3.9 g/dL (3.5-5.2) 07/18/22 00:11 Globulin 3.1 g/dL (1.3-4.6) 07/18/22 00:11 Discharge Plan Discharge Patient Disposition: Home Clinical Impression: Otitis externa Condition: Stable Prescriptions: New ofloxacin 0.3 % drops 10 drp otic (ear) BID 7 Days Qty: 10 0RF No Action pregabalin [Lyrica] 200 mg capsule 200 mg PO Q12H furosemide [Lasix] 20 mg tablet See Rx Instructions .ROUTE .COMPLEX Rx Instructions: 20MG PO ONCE A DAY THEN ALTERNATES WITH 40MG THE NEXT DAY hydrocodone-acetaminophen 5-325 mg tablet 1 tab PO BID PRN (Reason: pain) 30 Days Qty: 60 0RF metformin 500 mg tablet extended release 24 hr 500 mg PO QAM cyclobenzaprine 10 mg tablet 10 mg PO TID PRN (Reason: Muscle Spasm) montelukast 10 mg tablet 10 mg PO DAILY cyanocobalamin (vitamin B-12) 1,000 mcg/mL solution 1,000 mcg IM .every 30 days (DME) Diabetic shoes with 3 inserts See Rx Instructions .Route .MEDSUPPLY Qty: 1 0RF Rx Instructions: As directed by [facility] methotrexate sodium 2.5 mg tablet 15 mg PO Q7D Rx Instructions: ON MONDAYS (MED ON HOLD PER PT) folic acid 1 mg tablet 1 mg PO DAILY PRN (Reason: UNKNOWN) Lamictal 200 mg tablet 200 mg PO DAILY@1000 Qty: 90 0RF pantoprazole [Protonix] 40 mg tablet,delayed release (DR/EC) 40 mg PO DAILY Qty: 30 3RF citalopram [Celexa] 40 mg tablet 40 mg PO DAILY@1000 Qty: 30 2RF trazodone 300 mg tablet 300 mg PO BEDTIME Qty: 30 2RF prazosin 5 mg capsule 5 mg PO BEDTIME Qty: 30 2RF Humulin 70/30 U-100 Insulin 100 unit/mL (70-30) suspension See Rx Instructions .ROUTE .COMPLEX Rx Instructions: 60-72 UNITS THREE TO FOUR TIMES A DAY Zyrtec 10 mg Tablet 10 mg PO DAILY nystatin 100,000 unit/gram cream 1 applic TOPICAL BID Benadryl Allergy 25 mg Tablet 25 mg PO BID PRN (Reason: Allergy Symptoms) Nitrostat 0.4 mg Tablet, Sublingual 0.4 mg SUBLINGUAL Q5M PRN (Reason: Chest Pain) Rx Instructions: do not exceed 3 doses per episode nystatin 100,000 unit/gram powder 1 applic TOPICAL DAILY PRN (Reason: UNKNOWN) lorazepam 1 mg tablet 1 mg PO DAILY PRN (Reason: Anxiety) levofloxacin 500 mg tablet 500 mg PO DAILY Rx Instructions: RX FILLED 04/27/22 7D/S albuterol sulfate 90 mcg/actuation HFA aerosol inhaler 2 puff INHALATION Q6H PRN (Reason: Shortness Of Breath) rizatriptan 5 mg tablet,disintegrating 5 mg PO . DIRECTED MDD 30MG PRN (Reason: Migraine Headache) lisinopril 40 mg tablet 40 mg PO DAILY fluticasone propionate 50 mcg/actuation spray,suspension 2 spray INTRANASAL DAILY PRN (Reason: Allergy Symptoms) Nasal [place] (oxymetazoline) 0.05 % [place],Non-Aerosol 2 spray INTRANASAL Q12H PRN (Reason: UNKNOWN) Symbicort 160-4.5 mcg/actuation HFA aerosol inhaler 2 puff INHALATION BID PRN (Reason: UNKNOWN) Linzess 145 mcg capsule 145 mcg PO DAILY PRN (Reason: Constipation) Hylands Leg Cramps 1 tab PO BID PRN (Reason: LEG CRAMPS) lactulose 10 gram/15 mL solution 40 g PO DAILY PRN (Reason: constipation) Qty: 473 1RF pregabalin 150 mg capsule 150 mg PO BID Senna-S 8.6-50 mg tablet 1 tab-cap PO DAILY Qty: 60 0RF Discharge Orders: Discharge ED (Routine); Ordered 07/18/22 Ordered By: Ara Peters Referrals: Agustina Whiting DO [Primary Care Provider] - Discharge Diet: Usual diet Discharge Activity: Increase activity as tolerated Patient Instructions: Otitis Externa - Adult Activity Restrictions/Additional Instructions: Use drops as directed. Follow-up with primary care provider next week. Follow-up with ENT. Return to the emergency department as needed for any new or worsening symptoms Coding Level of Care Code ED Weld Engineer for Chg Fwd Exam Detailed Documented by User: David Daniels DO 07/18/22 05:54 HPI - Ear Problem General: Chief complaint: Ear Stated complaint: Right ear pain down into jaw Time Seen by Provider: 07/17/22 23:22 PFSH ED PFSH: Medical History Chest pain Encounter for long-term use of opiate analgesic Generalized anxiety disorder Lumbar back pain Opioid contract exists Post-traumatic stress disorder, chronic Psychiatric care Surgical History History of colonoscopy History of elbow surgery History of lumbar fusion History of neck surgery 3x LAP-BAND surgery status Family History Other CAD (coronary artery disease) Cancer Diabetes Hypertension Psychiatric illness Social History Smoking and tobacco status: never smoked Alcohol intake: never History of recent travel: No Course Vital Signs: Vital signs: Vital Signs Temperature 98.1 F 07/17/22 23:10 Pulse Rate 79 07/18/22 04:10 Respiratory Rate 18 07/18/22 04:10 Blood Pressure 145/89 07/18/22 04:10 Pulse Oximetry 98 07/18/22 04:10 Oxygen Delivery Me thod 07/17/22 23:10 MDM - Ear Medical Decision Making Consider otitis externa, malignant otitis externa given patient is diabetic and is worsening symptoms after fluoroquinolone antibiotic course. White blood cell count is elevated however patient has a baseline elevation of white blood cell count looking back at previous labs. White blood cell count today is 14.9 which is slightly higher than baseline labs that I am able to review. Blood sugar was low at 46 patient did have a snack and recheck was 80 blood sugar. ESR and CRP are elevated. CT scan temporal bone with contrast is ordered to further evaluate for malignant otitis externa. CT shows otitis externa with mastoid effusion. Patient has been treated with systemic fluoroquinolone, but has not used topical. Treat patient with ofloxacin. Pharmacy does not have this in stock here tonight I spoke with the pharmacist who recommended ciprofloxacin ophthalmic solution for the 1 dose tonight and then going ahead and letting the patient fill the ofloxacin when pharmacy is open for continued dosing. Case management referral was made to ENT. This patient is a diabetic patient who has been on fluoroquinolone antibiotics systemically and is now on a topical antibiotic with ongoing otitis externa and mastoid effusion. 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 Patient does have a pain contract and will continue his normally scheduled pain medication as needed, waiting at least 6 hours after his 1 dose of Percocet. Chart reviewed and patient discussed with midlevel. Agree with assessment and plan. Lab Data 07/18/22 00:11 07/18/22 00:11 Radiology Impressions Temporal Bone CT 07/18/22 00:02 IMPRESSION: Mild right otitis externa and mastoid effusion. Laboratory Results WBC 14.9 10^3/uL (4.0-10.0) H 07/18/22 00:11 RBC 4.45 10^6/uL (4.1-5.3) 07/18/22 00:11 Hgb 12.7 g/dL (11.7-16.6) 07/18/22 00:11 Hct 40.9 % (42.0-52.0) L 07/18/22 00:11 MCV 91.9 fl (80-94) 07/18/22 00:11 MCH 28.5 pg (28.0-34.0) 07/18/22 00:11 MCHC 31.1 g/dL (30.0-36.0) 07/18/22 00:11 RDW 15.3 % (12.1-15.1) H 07/18/22 00:11 Plt Count 283 10^3/cmm (130-400) 07/18/22 00:11 MPV 10.1 fL (7.4-10.4) 07/18/22 00:11 Neut % (Auto) 64.0 % 07/18/22 00:11 Lymph % (Auto) 27.2 % 07/18/22 00:11 Morgan % (Auto) 5.2 % 07/18/22 00:11 Eos % (Auto) 1.5 % 07/18/22 00:11 Baso % (Auto) 0.6 % 07/18/22 00:11 Neut # (Auto) 9.56 10^3/uL (1.8-7.7) H 07/18/22 00:11 Lymph # (Auto) 4.1 10^3/uL (0.8-4.8) 07/18/22 00:11 Morgan # (Auto) 0.8 10^3/uL (0.2-0.9) 07/18/22 00:11 Eos # (Auto) 0.2 10^3/uL (0.0-0.8) 07/18/22 00:11 Baso # (Auto) 0.1 10^3/uL (0.0-0.1) 07/18/22 00:11 Nucleated RBC % (auto) 0 % 07/18/22 00:11 Nucleated RBCs # 0.0 /100WBC 07/18/22 00:11 ESR 25 mm/hr (0-10) H 07/18/22 00:11 Sodium 145 mmol/L (136-145) 07/18/22 00:11 Potassium 3.8 mmol/L (3.5-5.1) 07/18/22 00:11 Chloride 103 mmol/L (98-107) 07/18/22 00:11 Carbon Dioxide 31 mmol/L (22-29) H 07/18/22 00:11 Anion Gap 14.8 (5-19) 07/18/22 00:11 BUN 17 mg/dL (6-20) 07/18/22 00:11 Creatinine 1.1 mg/dL (0.7-1.2) 07/18/22 00:11 GFR Calculation 70.3 mL/min (90-130) L 07/18/22 00:11 Glucose 46 mg/dL (65-115) L 07/18/22 00:11 POC Glucose 80 mg/dL (70-110) 07/18/22 01:09 Calculated Osmolality 299 mOsm/kg (285-295) H 07/18/22 00:11 Calcium 8.9 mg/dL (8.5-10.5) 07/18/22 00:11 Total Bilirubin 0.2 mg/dL (0.15-1.2) 07/18/22 00:11 AST 16 U/L (0-40) 07/18/22 00:11 ALT 13 U/L (0-41) 07/18/22 00:11 Alkaline Phosphatase 95 U/L (40-130) 07/18/22 00:11 C-Reactive Protein 34.4 mg/L (0.0-4.9) H 07/18/22 00:11 Total Protein 7.0 g/dL (6.6-8.7) 07/18/22 00:11 Albumin 3.9 g/dL (3.5-5.2) 07/18/22 00:11 Globulin 3.1 g/dL (1.3-4.6) 07/18/22 00:11 Discharge Plan Discharge Patient Disposition: Home Clinical Impression: Otitis externa Condition: Stable Prescriptions: New ofloxacin 0.3 % drops 10 drp otic (ear) BID 7 Days Qty: 10 0RF No Action pregabalin [Lyrica] 200 mg capsule 200 mg PO Q12H furosemide [Lasix] 20 mg tablet See Rx Instructions .ROUTE .COMPLEX Rx Instructions: 20MG PO ONCE A DAY THEN ALTERNATES WITH 40MG THE NEXT DAY hydrocodone-acetaminophen 5-325 mg tablet 1 tab PO BID PRN (Reason: pain) 30 Days Qty: 60 0RF metformin 500 mg tablet extended release 24 hr 500 mg PO QAM cyclobenzaprine 10 mg tablet 10 mg PO TID PRN (Reason: Muscle Spasm) montelukast 10 mg tablet 10 mg PO DAILY cyanocobalamin (vitamin B-12) 1,000 mcg/mL solution 1,000 mcg IM .every 30 days (DME) Diabetic shoes with 3 inserts See Rx Instructions .Route .MEDSUPPLY Qty: 1 0RF Rx Instructions: As directed by [facility] methotrexate sodium 2.5 mg tablet 15 mg PO Q7D Rx Instructions: ON MONDAYS (MED ON HOLD PER PT) folic acid 1 mg tablet 1 mg PO DAILY PRN (Reason: UNKNOWN) Lamictal 200 mg tablet 200 mg PO DAILY@1000 Qty: 90 0RF pantoprazole [Protonix] 40 mg tablet,delayed release (DR/EC) 40 mg PO DAILY Qty: 30 3RF citalopram [Celexa] 40 mg tablet 40 mg PO DAILY@1000 Qty: 30 2RF trazodone 300 mg tablet 300 mg PO BEDTIME Qty: 30 2RF prazosin 5 mg capsule 5 mg PO BEDTIME Qty: 30 2RF Humulin 70/30 U-100 Insulin 100 unit/mL (70-30) suspension See Rx Instructions .ROUTE .COMPLEX Rx Instructions: 60-72 UNITS THREE TO FOUR TIMES A DAY Zyrtec 10 mg Tablet 10 mg PO DAILY nystatin 100,000 unit/gram cream 1 applic TOPICAL BID Benadryl Allergy 25 mg Tablet 25 mg PO BID PRN (Reason: Allergy Symptoms) Nitrostat 0.4 mg Tablet, Sublingual 0.4 mg SUBLINGUAL Q5M PRN (Reason: Chest Pain) Rx Instructions: do not exceed 3 doses per episode nystatin 100,000 unit/gram powder 1 applic TOPICAL DAILY PRN (Reason: UNKNOWN) lorazepam 1 mg tablet 1 mg PO DAILY PRN (Reason: Anxiety) levofloxacin 500 mg tablet 500 mg PO DAILY Rx Instructions: RX FILLED 04/27/22 7D/S albuterol sulfate 90 mcg/actuation HFA aerosol inhaler 2 puff INHALATION Q6H PRN (Reason: Shortness Of Breath) rizatriptan 5 mg tablet,disintegrating 5 mg PO . DIRECTED MDD 30MG PRN (Reason: Migraine Headache) lisinopril 40 mg tablet 40 mg PO DAILY fluticasone propionate 50 mcg/actuation spray,suspension 2 spray INTRANASAL DAILY PRN (Reason: Allergy Symptoms) Nasal [place] (oxymetazoline) 0.05 % [place],Non-Aerosol 2 spray INTRANASAL Q12H PRN (Reason: UNKNOWN) Symbicort 160-4.5 mcg/actuation HFA aerosol inhaler 2 puff INHALATION BID PRN (Reason: UNKNOWN) Linzess 145 mcg capsule 145 mcg PO DAILY PRN (Reason: Constipation) Hylands Leg Cramps 1 tab PO BID PRN (Reason: LEG CRAMPS) lactulose 10 gram/15 mL solution 40 g PO DAILY PRN (Reason: constipation) Qty: 473 1RF pregabalin 150 mg capsule 150 mg PO BID Senna-S 8.6-50 mg tablet 1 tab-cap PO DAILY Qty: 60 0RF Discharge Orders: Discharge ED (Routine); Ordered 07/18/22 Ordered By: Ara Peters Referrals: Agustina Whiting DO [Primary Care Provider] - Discharge Diet: Usual diet Discharge Activity: Increase activity as tolerated Patient Instructions: Otitis Externa - Adult Activity Restrictions/Additional Instructions: Use drops as directed. Follow-up with primary care provider next week. Follow-up with ENT. Return to the emergency department as needed for any new or worsening symptoms Coding Level of Care Code ED Weld Engineer for [place] Fwd Exam Detailed
[2022-07-18 04:10] VITALS: BP 145/89; PULSE 79; RESP 18; O2SAT 98
[2022-07-18] MEDS: oxyCODONE-APAP 5-325 mg Tablet 1 TAB PO (04:10)
[2022-07-18] MEDS: ciprofloxacin 0.3% Op Soln 2.5 mL Btl 4 DROP EAR-RIGHT (04:10)
--- NOTE | 2022-07-18 09:16 | DCPLANNER ---
Addendum entered by Lis Gallardo 09/26/22 07:43: this appointment was rescheduled Addendum entered by Lis Gallardo 07/20/22 13:09: Patient has a follow up appointment scheduled for Saturday, September 03, 2022 at 2:00 with at [facility]. Clinic will call patient with appointment information. Original Note: specialist managers had message to schedule a follow up appointment for patient with [facility]. specialist managers sent patients information to the front office staff at [facility]. Patients information will be printed and reviewed. Clinic will call patient with appointment information.
--- NOTE | 2022-07-30 10:21 | DCPLANNER ---
manager of pmo had message to schedule a follow up appointment for patient with ENT. manager of pmo sent patients information to the front office staff at [facility]. Patients information will be printed and reviewed. Clinic will call patient with appointment information.
== END 2022-07-18 04:11 | disposition home or self-care (01) ==
PROVIDERS: Emergency Provider Nurse Practitioner Family; PCP Family Medicine
DX: H60.91 Unspecified otitis externa, right ear (principal); Z79.4 Long term (current) use of insulin
CPT/HCPCS: 36416; 70481; 80053; 82962; 85025; 85651; 86140; 99285; Q9967

== ENCOUNTER 2022-07-29 14:53 | Emergency (ER) | payer MEDICARE, OTHER, SELFPAY ==
[2022-07-29 15:22] VITALS: BP 199/71; PULSE 92; RESP 20; TEMP 37.4; O2SAT 95
[2022-07-29] MEDS: ofloxacin 0.3% Op Soln 5 mL Btl 5 DROP EAR-RIGHT (16:30)
--- NOTE | 2022-07-29 17:36 | W.ED.EAR ---
HPI - Ear Problem General: Chief complaint: Ear Stated complaint: ear pain Time Seen by Provider: 07/29/22 15:31 History of Present Illness: Patient is a 52-year-old man that presents to the emergency department with complaints of right ear pain. Onset of symptoms in the last 24 hours. Patient states that he has been struggling with cerumen has been using what he describes as a ear aerator to clean out his ears. It sounds strangely like a bulb syringe. Patient reports he gets pretty aggressive with this aeration of his ear. Sign since then he has had popping sensation and pain in the right ear. No active drainage visible No fever or chills Associated symptoms: Denies ear or mastoid pain, fever(s), headache(s), neck pain or tinnitus Review of Systems General: Reports: 10 or more systems reviewed and unremarkable except in HPI and below Const: Denies: fever(s), chills, change in appetite, change in weight, fatigue or malaise Eyes: Denies: change in vision, eye discomfort, eye discharge or eye redness ENMT: Denies: throat pain, enlarged tonsils, odynophagia, hoarseness, ear or mastoid pain, ear discharge, change in hearing, tinnitus, nasal discharge, nasal congestion, post nasal drip or sinus pain Card: Denies: chest pain, palpitations, irregular heart rhythm, edema, dyspnea on exertion, orthopnea or leg pain with exertion Resp: Denies: dyspnea, productive cough, non-productive cough, wheezing, stridor or chest congestion GI: Denies: abdominal pain, nausea, vomiting, dysphagia, diarrhea, constipation, bloating, GI cramping or hematochezia : Denies: flank pain, dysuria, urinary frequency, urinary urgency, urinary hesitancy, oliguria or hematuria Musc: Denies: neck pain, back pain, extremity pain, joint pain, joint swelling, joint redness, joint warmth or muscle weakness Skin/Breast: Denies: rash, pruritus, erythema, photosensitivity or new lesions Neuro: Denies: headache(s), numbness in extremities, weakness in extremities, sensory changes, lack of coordination, difficulty walking, frequent falls, dizziness, confusion, Slurred speech present, difficulty communicating thoughts, seizure-like activity or involuntary movements Endo: Denies: polyuria, polydipsia or tired all the time Sukumar/Lymph: Denies: easy bruising or easy bleeding PFSH ED PFSH: Medical History Chest pain Encounter for long-term use of opiate analgesic Generalized anxiety disorder Lumbar back pain Opioid contract exists Post-traumatic stress disorder, chronic Psychiatric care Surgical History History of colonoscopy History of elbow surgery History of lumbar fusion History of neck surgery 3x LAP-BAND surgery status Family History Other CAD (coronary artery disease) Cancer Diabetes Hypertension Psychiatric illness Social History Smoking and tobacco status: never smoked Alcohol intake: never History of recent travel: No Physical Exam Const: COMMON NORMALS: no acute distress, average body habitus, patient oriented x3, no limitations, healthy appearing, alert and well nourished GENERAL APPEARANCE: cooperative, comfortable and well developed; not in distress and not anxious ORIENTATION/CONSCIOUSNESS: Yes awake, Yes oriented to person, Yes oriented to place and Yes oriented to time HENMT: COMMON NORMALS: normocephalic, atraumatic, hearing grossly normal bilaterally, external ears normal, EAC's normal, Normal external nose present and Normal nasal mucous membranes and turbinates present HEAD & SCALP: normal to inspection, normocephalic and atraumatic FACE & SINUS: normal facial exam and face symmetric NOSE: Normal external nose present, Normal nares present and Normal nasal mucous membranes and turbinates present GENERAL EAR: hearing not grossly impaired EXTERNAL EAR: Yes external ears normal and Yes no periauricular adenopathy EXTERNAL AUDITORY CANAL: EAC's normal TYMPANIC MEMBRANE: TM normal on the left EAR IMAGES: 1. Bleeding noted MOUTH: Normal oral and palatal mucosa present, lip normal, tongue normal and Normal salivary glands and ducts present THROAT: posterior oropharynx normal, tonsils normal and uvula midline Eye: COMMON NORMALS: Equal, round and reactive pupils present, EOMs intact bilaterally, conjunctivae normal, no scleral icterus and no papilledema GENERAL EYE: appearance normal, both eyes and all related structures ALIGNMENT: Yes alignment normal PERIORBITAL: periorbital findings normal EYELID: eyelids normal CONJUNCTIVA: Yes conjunctivae normal PUPIL: Yes Equal, round and reactive pupils present DIRECT OPHTHALMOSCOPY: Yes no papilledema Chest: COMMONS NORMALS: normal inspection of the chest Breast/axilla inspection: Yes no chest deformity, asymmetry, normal contours, no nodules, masses, tenderness Resp: COMMON NORMALS: normal respiratory effort, No retractions, No use of accessory muscles and clear to auscultation bilaterally EFFORT & INSPECTION: Yes able to speak in complete sentences, Yes symmetric chest movement, No abnormal respiratory pattern, No tachypneic and No respiratory distress AUSCULTATION: clear to auscultation bilaterally Cardio: COMMON NORMALS: regular rate, regular rhythm and Peripheral pulses 2+ throughout RATE: regular rate RHYTHM: regular rhythm PERIPHERAL PULSES: Peripheral pulses 2+ throughout GI: COMMON NORMALS: Normal to inspection, nondistended, normoactive bowel sounds present, Soft to palpation and non-tender INSPECTION: Yes normal to inspection PALPATION: Yes Soft to palpation : COMMON NORMALS: Yes no CVA tenderness BLADDER/KIDNEY EXAM: Yes no CVA tenderness Back/Pelvis: COMMON NORMALS: no CVA tenderness, thoracic and lumbar spine normal to inspection, no thoracic nor lumbar tenderness, thoraco-lumbar ROM normal and straight leg raise negative bilaterally GENERAL BACK: No ecchymosis THORACIC SPINE/UPPER BACK: Yes normal to inspection LUMBAR SPINE/LOWER BACK: Yes normal to inspection and Yes straight leg raise negative bilaterally Neuro: COMMON NORMALS: patient oriented x3 SENSORIUM/ORIENTATION: Yes alert, Yes oriented to person, Yes oriented to place and Yes oriented to time Course Vital Signs: Vital signs: Vital Signs Temperature 99.4 F 07/29/22 15:22 Pulse Rate 92 07/29/22 15:22 Respiratory Rate 20 H 07/29/22 15:22 Blood Pressure 199/71 07/29/22 15:22 Pulse Oximetry 95 07/29/22 15:22 MDM - Ear Medical Decision Making Patient was evaluated in the emergency department for complaints of right ear pain. On exam exam patient was noted as having a ruptured tympanic membrane with bleeding from the inferior portion of the tympanic membrane. Patient was started on ofloxacin drops. Prescriptions have been sent. Patient has also had ENT referral sent Patient is to follow-up with ENT this week and he is to avoid using this ear aerator. Furthermore he is to avoid any fluid inside the ear other than the eardrops. At this time no further diagnostics are warranted and all questions were answered. Discharge Plan Discharge Patient Disposition: Home Clinical Impression: Barotrauma, otic Condition: Stable Prescriptions: New ofloxacin 0.3 % drops 5 drp otic (ear) DAILY 7 Days Qty: 10 0RF No Action pregabalin [Lyrica] 200 mg capsule 200 mg PO Q12H furosemide [Lasix] 20 mg tablet See Rx Instructions .ROUTE .COMPLEX Rx Instructions: 20MG PO ONCE A DAY THEN ALTERNATES WITH 40MG THE NEXT DAY hydrocodone-acetaminophen 5-325 mg tablet 1 tab PO BID PRN (Reason: pain) 30 Days Qty: 60 0RF metformin 500 mg tablet extended release 24 hr 500 mg PO QAM cyclobenzaprine 10 mg tablet 10 mg PO TID PRN (Reason: Muscle Spasm) montelukast 10 mg tablet 10 mg PO DAILY cyanocobalamin (vitamin B-12) 1,000 mcg/mL solution 1,000 mcg IM .every 30 days (DME) Diabetic shoes with 3 inserts See Rx Instructions .Route .MEDSUPPLY Qty: 1 0RF Rx Instructions: As directed by [facility] methotrexate sodium 2.5 mg tablet 15 mg PO Q7D Rx Instructions: ON MONDAYS (MED ON HOLD PER PT) folic acid 1 mg tablet 1 mg PO DAILY PRN (Reason: UNKNOWN) pantoprazole [Protonix] 40 mg tablet,delayed release (DR/EC) 40 mg PO DAILY Qty: 30 3RF citalopram [Celexa] 40 mg tablet 40 mg PO DAILY@1000 Qty: 30 2RF trazodone 300 mg tablet 300 mg PO BEDTIME Qty: 30 2RF prazosin 5 mg capsule 5 mg PO BEDTIME Qty: 30 2RF Lamictal 200 mg tablet 200 mg PO DAILY@1000 Qty: 90 0RF Humulin 70/30 U-100 Insulin 100 unit/mL (70-30) suspension See Rx Instructions .ROUTE .COMPLEX Rx Instructions: 60-72 UNITS THREE TO FOUR TIMES A DAY Zyrtec 10 mg Tablet 10 mg PO DAILY nystatin 100,000 unit/gram cream 1 applic TOPICAL BID Benadryl Allergy 25 mg Tablet 25 mg PO BID PRN (Reason: Allergy Symptoms) Nitrostat 0.4 mg Tablet, Sublingual 0.4 mg SUBLINGUAL Q5M PRN (Reason: Chest Pain) Rx Instructions: do not exceed 3 doses per episode nystatin 100,000 unit/gram powder 1 applic TOPICAL DAILY PRN (Reason: UNKNOWN) lorazepam 1 mg tablet 1 mg PO DAILY PRN (Reason: Anxiety) levofloxacin 500 mg tablet 500 mg PO DAILY Rx Instructions: RX FILLED 04/27/22 7D/S albuterol sulfate 90 mcg/actuation HFA aerosol inhaler 2 puff INHALATION Q6H PRN (Reason: Shortness Of Breath) rizatriptan 5 mg tablet,disintegrating 5 mg PO . DIRECTED MDD 30MG PRN (Reason: Migraine Headache) lisinopril 40 mg tablet 40 mg PO DAILY fluticasone propionate 50 mcg/actuation spray,suspension 2 spray INTRANASAL DAILY PRN (Reason: Allergy Symptoms) Nasal Buda (oxymetazoline) 0.05 % Buda,Non-Aerosol 2 spray INTRANASAL Q12H PRN (Reason: UNKNOWN) Symbicort 160-4.5 mcg/actuation HFA aerosol inhaler 2 puff INHALATION BID PRN (Reason: UNKNOWN) Linzess 145 mcg capsule 145 mcg PO DAILY PRN (Reason: Constipation) [facility] Leg Cramps 1 tab PO BID PRN (Reason: LEG CRAMPS) lactulose 10 gram/15 mL solution 40 g PO DAILY PRN (Reason: constipation) Qty: 473 1RF pregabalin 150 mg capsule 150 mg PO BID Senna-S 8.6-50 mg tablet 1 tab-cap PO DAILY Qty: 60 0RF Discharge Orders: Discharge ED (Routine); Ordered 07/29/22 Ordered By: Tony Lomeli [facility] Referrals: Agustina Whiting DO [Primary Care Provider] - Discharge Diet: Advance as tolerated Discharge Activity: Resume usual activity Patient Instructions: Ruptured Eardrum (ED), Barotrauma (ED), Pain Management Activity Restrictions/Additional Instructions: Seizure eardrops: Hold the bottle in your hand with for 1 or 2 minutes to warm up the solution Lie down with the affected ear up Place the prescribed number of drops?5 drops?into the ear If you are using a bottle of solution be careful not to touch the tip to your ear fingers or any other surface Remain lying down with the affected ear up for 5 minutes You to put cotton balls in your ears to keep them dry No getting that side of your ear wet Follow-up with ENT. A referral has been sent. Coding Level of Care Code ED [employer] for Carito Arreguin
--- NOTE | 2022-07-30 10:23 | DCPLANNER ---
Addendum entered by Lis Gallardo 09/26/22 07:25: This appointment was rescheduled Addendum entered by Lis Gallardo 08/01/22 15:08: Patient has a follow up appointment scheduled for Saturday, September 03, [address]22 at 2:[address] Song at [facility]. Clinic will call patient with appointment information. Original Note: analytical manager had message to schedule a follow up appointment for patient with ENT. analytical manager sent patients information to the front office staff at [facility]. Patients information will be printed and reviewed. Clinic will call patient with appointment information.
== END 2022-07-29 16:47 | disposition home or self-care (01) ==
PROVIDERS: Emergency Provider Nurse Practitioner; PCP Family Medicine
DX: T70.0XXA Otitic barotrauma, initial encounter (principal); Z79.84 Long term (current) use of oral hypoglycemic drugs; Z79.4 Long term (current) use of insulin; X58.XXXA Exposure to other specified factors, initial encounter
CPT/HCPCS: 99283

== ENCOUNTER 2022-10-13 11:02 | Emergency (ER) | payer MEDICARE, OTHER, SELFPAY ==
[2022-10-13 11:07] VITALS: BP 192/78; PULSE 56; RESP 14; TEMP 37; O2SAT 91; BMI 51.3
--- NOTE | 2022-10-13 11:34 | CTR_ITS ---
PROCEDURE INFORMATION: Exam: CT Abdomen And Pelvis Without Contrast Exam date and time: 10/13/2022 11:43 AM Age: 52 years old Clinical indication: Abdominal pain; Prior surgery; Surgery type: Lapband; L-sp TECHNIQUE: Imaging protocol: Computed tomography of the abdomen and pelvis without contrast. Radiation optimization: All CT scans at this facility use at least one of these dose optimization techniques: automated exposure control; mA and/or kV adjustment per patient size (includes targeted exams where dose is matched to clinical indication); or iterative reconstruction. REPORTING DATA: Count of CT and Cardiac NM exams in prior 12 months: This patient has received 4 known CTs and 0 known cardiac nuclear medicine studies in the 12 months prior to the current study. COMPARISON: CT abdomen pelvis w con* [id number] 03/05/2021 2:27 AM RADIATION DOSE METRICS: Total DLP (mGy-cm): 1331.23 FINDINGS: Lungs: Small calcified granulomas noted in the left lower lobe. No consolidation. Liver: Normal. No mass. Gallbladder and bile ducts: Normal. No calcified stones. No ductal dilation. Pancreas: Normal. No ductal dilation. Spleen: Normal. No splenomegaly. Adrenal glands: Normal. No mass. Kidneys and ureters: There is a 3 mm nonobstructing stone in the right lower kidney. The kidneys are otherwise unremarkable. Stomach and bowel: Gastric band appears to be in satisfactory position. No focal bowel inflammation or obstruction identified. Appendix: No evidence of appendicitis. Intraperitoneal space: Unremarkable. No free air. No significant fluid collection. Vasculature: Unremarkable. No abdominal aortic aneurysm. Lymph nodes: Unremarkable. No enlarged lymph nodes. Urinary bladder: Unremarkable as visualized. Reproductive: Unremarkable as visualized. Bones/joints: Degenerative changes of the spine seen. The patient is status post L4-S1 posterior fusion. Soft tissues: Unremarkable. CT/CT abdomen pelvis wo con [id number] IMPRESSION: No acute intra-abdominal or intrapelvic pathology.
--- NOTE | 2022-10-13 11:38 | W.ED.ABDPA2 ---
HPI - Abdominal Pain General: Chief Complaint: Abdominal Pain Stated Complaint: abd pain Time Seen by Provider: 10/13/22 11:10 Source: patient Mode of arrival: ambulatory History of Present Illness: 52-year-old male presents to the emergency room with complaint of abdominal pain. He reports left-sided abdominal pain cramping began a few days ago is progressively worsened he has had some dysuria with that as well. He has not had a fever that he is aware of has not noticed any hematuria. He has been very nauseous but no vomiting or diarrhea. Denies any chest pain or shortness of breath. He was seen yesterday at [place] given Zofran that has not relieved his nausea. MD elicited complaint: abdominal pain Pertinent past history: other (Gastric band surgery 2004) Pain Consistency: intermittent Location: LUQ and LLQ Severity: moderate Quality: cramping Exacerbating factors: nothing Relieving factors: nothing Associated Symptoms: Reports dysuria; Denies anorexia, belching, bloating, change in bowel habits, change in stool character, chills, coffee ground emesis, constipation, GI cramping, diarrhea, dyspepsia, excessive flatus, fever(s), heartburn, hematochezia, hematuria, hematemesis, fecal incontinence, loose stools, melena, nausea, poor appetite, syncope and vomiting Review of Systems Const: Denies: fever(s), chills, fatigue or malaise ENMT: Denies: throat pain, ear or mastoid pain, nasal discharge or nasal congestion Card: Denies: syncope Resp: Denies: dyspnea, productive cough or non-productive cough GI: Reports: abdominal pain; Denies: nausea, vomiting, hematemesis, coffee ground emesis, heartburn, diarrhea, constipation, bloating, GI cramping, belching, excessive flatus, fecal incontinence, change in bowel habits, change in stool character, hematochezia or melena : Reports: dysuria; Denies: flank pain or hematuria Skin/Breast: Denies: rash or pruritus PFSH ED PFSH: Medical History Chest pain Encounter for long-term use of opiate analgesic Generalized anxiety disorder Insomnia Lumbar back pain Opioid contract exists Post-traumatic stress disorder, chronic Psychiatric care Surgical History History of colonoscopy History of elbow surgery History of lumbar fusion History of neck surgery 3x LAP-BAND surgery status Family History Other CAD (coronary artery disease) Cancer Diabetes Hypertension Psychiatric illness Social History Smoking and tobacco status: never smoked Alcohol intake: never Physical Exam Const: GENERAL APPEARANCE: cooperative and comfortable ORIENTATION/CONSCIOUSNESS: Yes awake, Yes oriented to person, Yes oriented to place and Yes oriented to time HENMT: COMMON NORMALS: normocephalic, atraumatic and hearing grossly normal bilaterally HEAD & SCALP: normocephalic and atraumatic Resp: COMMON NORMALS: normal respiratory effort, No retractions, No use of accessory muscles and clear to auscultation bilaterally AUSCULTATION: clear to auscultation bilaterally Cardio: COMMON NORMALS: regular rate, regular rhythm and No murmurs present (Cardio) RATE: regular rate RHYTHM: regular rhythm GI: COMMON NORMALS: No hepatosplenomegaly present AUSCULTATION: Yes normoactive bowel sounds PALPATION: Yes Tenderness to palpation present (GI) Details: LLQ and LUQ, No Guarding due to palpation present (GI) and Yes No hepatosplenomegaly present Extremity: COMMON NORMALS: normal to inspection, capillary refill normal, no clubbing, cyanosis or edema, no calf tenderness and no pedal edema Neuro: SENSORIUM/ORIENTATION: Yes oriented to person, Yes oriented to place and Yes oriented to time Skin: COMMON NORMALS: no rashes or lesions noted GENERAL SKIN EXAM: no rashes or lesions noted Course Vital Signs: Vital signs: Vital Signs Temperature 98.6 F 10/13/22 11:07 Pulse Rate 79 10/13/22 14:19 Respiratory Rate 18 10/13/22 14:19 Blood Pressure 163/81 10/13/22 14:19 Pulse Oximetry 92 10/13/22 14:19 Oxygen Delivery Me thod 10/13/22 11:07 MDM - Abdominal Pain Medical Decision Making Labs and imaging reviewed no acute findings noted. Recommend Glucotide for next 24 to 48 hours antiemetics as needed return to follow-up with primary care if not improving. Reviewed findings with the patient. Medical Records I reviewed the patient's medical records. Lab Data I reviewed the patient's lab results. 10/13/22 11:35 10/13/22 11:35 Labs/Radiology: Radiology Impressions Abdomen/Pelvis CT 10/13/22 11:34 IMPRESSION: No acute intra-abdominal or intrapelvic pathology. Laboratory Results WBC 12.1 10^3/uL (4.0-10.0) H 10/13/22 11:35 RBC 4.05 10^6/uL (4.1-5.3) L 10/13/22 11:35 Hgb 11.7 g/dL (11.7-16.6) 10/13/22 11:35 Hct 36.8 % (42.0-52.0) L 10/13/22 11:35 MCV 90.9 fl (80-94) 10/13/22 11:35 MCH 28.9 pg (28.0-34.0) 10/13/22 11:35 MCHC 31.8 g/dL (30.0-36.0) 10/13/22 11:35 RDW 14.8 % (12.1-15.1) 10/13/22 11:35 Plt Count 231 10^3/cmm (130-400) 10/13/22 11:35 MPV 10.3 fL (7.4-10.4) 10/13/22 11:35 Neut % (Auto) 77.6 % 10/13/22 11:35 Lymph % (Auto) 15.8 % 10/13/22 11:35 [place] % (Auto) 4.8 % 10/13/22 11:35 Eos % (Auto) 0.6 % 10/13/22 11:35 Baso % (Auto) 0.7 % 10/13/22 11:35 Neut # (Auto) 9.38 10^3/uL (1.8-7.7) H 10/13/22 11:35 Lymph # (Auto) 1.9 10^3/uL (0.8-4.8) 10/13/22 11:35 [place] # (Auto) 0.6 10^3/uL (0.2-0.9) 10/13/22 11:35 Eos # (Auto) 0.1 10^3/uL (0.0-0.8) 10/13/22 11:35 Baso # (Auto) 0.1 10^3/uL (0.0-0.1) 10/13/22 11:35 Nucleated RBC % (auto) 0 % 10/13/22 11:35 Nucleated RBCs # 0.0 /100WBC 10/13/22 11:35 Sodium 139 mmol/L (136-145) 10/13/22 11:35 Potassium 3.9 mmol/L (3.5-5.1) 10/13/22 11:35 Chloride 99 mmol/L (98-107) 10/13/22 11:35 Carbon Dioxide 27 mmol/L (22-29) 10/13/22 11:35 Anion Gap 16.9 (5-19) 10/13/22 11:35 BUN 9 mg/dL (6-20) 10/13/22 11:35 Creatinine 0.9 mg/dL (0.7-1.2) 10/13/22 11:35 GFR Calculation 88.6 mL/min (90-130) L 10/13/22 11:35 Glucose 194 mg/dL (65-115) H 10/13/22 11:35 Calculated Osmolality 292 mOsm/kg (285-295) 10/13/22 11:35 Calcium 8.7 mg/dL (8.5-10.5) 10/13/22 11:35 Total Bilirubin 0.7 mg/dL (0.15-1.2) 10/13/22 11:35 AST 14 U/L (0-40) 10/13/22 11:35 ALT 10 U/L (0-41) 10/13/22 11:35 Alkaline Phosphatase 87 U/L (40-130) 10/13/22 11:35 Total Protein 6.0 g/dL (6.6-8.7) L 10/13/22 11:35 Albumin 3.8 g/dL (3.5-5.2) 10/13/22 11:35 Globulin 2.2 g/dL (1.3-4.6) 10/13/22 11:35 Lipase 15 U/L (13-60) 10/13/22 11:35 Urine Color Yellow (Yellow) 10/13/22 11:35 Urine Appearance Clear (CLEAR) 10/13/22 11:35 Urine pH 6 (5-7) 10/13/22 11:35 Ur Specific [place] 1.015 (1.005-1.030) 10/13/22 11:35 Urine Protein 1+ (Negative) H 10/13/22 11:35 Urine Glucose (UA) Norm (Normal) 10/13/22 11:35 Urine Ketones 1+ (Negative) H 10/13/22 11:35 Urine Blood Neg (Negative) 10/13/22 11:35 Urine Nitrate Negative (Negative) 10/13/22 11:35 Urine Bilirubin Neg (Negative) 10/13/22 11:35 Urine Urobilinogen Norm mg/dL (Negative) 10/13/22 11:35 Ur Leukocyte Esterase Trace (Negative) H 10/13/22 11:35 Urine RBC None /hpf (0-2) 10/13/22 11:35 Urine WBC 0-4 /hpf (0-5) H 10/13/22 11:35 Ur Squamous Epith Cells Rare /hpf (0-5) 10/13/22 11:35 Amorphous Sediment Not Reportable 10/13/22 11:35 Urine Bacteria Trace /hpf (NONE) 10/13/22 11:35 Urine Mucus Trace /hpf 10/13/22 11:35 Discharge Plan Discharge Patient Disposition: Home Clinical Impression: Gastroenteritis Condition: Stable Prescriptions: New ondansetron HCl 4 mg tablet 4 mg PO Q6H PRN (Reason: nausea and vomiting) Qty: 20 0RF No Action pregabalin [Lyrica] 200 mg capsule 200 mg PO Q12H furosemide [Lasix] 20 mg tablet See Rx Instructions .ROUTE .COMPLEX Rx Instructions: 20MG PO ONCE A DAY THEN ALTERNATES WITH 40MG THE NEXT DAY hydrocodone-acetaminophen 5-325 mg tablet 1 tab PO BID PRN (Reason: pain) 30 Days Qty: 60 0RF metformin 500 mg tablet extended release 24 hr 500 mg PO QAM cyclobenzaprine 10 mg tablet 10 mg PO TID PRN (Reason: Muscle Spasm) montelukast 10 mg tablet 10 mg PO DAILY cyanocobalamin (vitamin B-12) 1,000 mcg/mL solution 1,000 mcg IM .every 30 days (DME) Diabetic shoes with 3 inserts See Rx Instructions .Route .MEDSUPPLY Qty: 1 0RF Rx Instructions: As directed by [facility] hydrochlorothiazide 25 mg tablet 25 mg PO DAILY Trelegy Ellipta 100-62.5-25 mcg blister with device 1 inh inhalation DAILY Lamictal 200 mg tablet 200 mg PO DAILY@1000 Qty: 90 0RF trazodone 50 mg tablet 50 mg PO .HS Qty: 90 0RF trazodone 300 mg tablet 300 mg PO BEDTIME Qty: 90 0RF prazosin 5 mg capsule 5 mg PO BEDTIME Qty: 90 0RF citalopram [Celexa] 40 mg tablet 40 mg PO DAILY@1000 Qty: 90 0RF methotrexate sodium 2.5 mg tablet 15 mg PO Q7D Rx Instructions: ON MONDAYS (MED ON HOLD PER PT) folic acid 1 mg tablet 1 mg PO DAILY PRN (Reason: UNKNOWN) pantoprazole [Protonix] 40 mg tablet,delayed release (DR/EC) 40 mg PO DAILY Qty: 30 3RF Humulin 70/30 U-100 Insulin 100 unit/mL (70-30) suspension See Rx Instructions .ROUTE .COMPLEX Rx Instructions: 60-72 UNITS THREE TO FOUR TIMES A DAY Zyrtec 10 mg Tablet 10 mg PO DAILY nystatin 100,000 unit/gram cream 1 applic TOPICAL BID Benadryl Allergy 25 mg Tablet 25 mg PO BID PRN (Reason: Allergy Symptoms) Nitrostat 0.4 mg Tablet, Sublingual 0.4 mg SUBLINGUAL Q5M PRN (Reason: Chest Pain) Rx Instructions: do not exceed 3 doses per episode nystatin 100,000 unit/gram powder 1 applic TOPICAL DAILY PRN (Reason: UNKNOWN) lorazepam 1 mg tablet 1 mg PO DAILY PRN (Reason: Anxiety) levofloxacin 500 mg tablet 500 mg PO DAILY Rx Instructions: RX FILLED 04/27/22 7D/S albuterol sulfate 90 mcg/actuation HFA aerosol inhaler 2 puff INHALATION Q6H PRN (Reason: Shortness Of Breath) rizatriptan 5 mg tablet,disintegrating 5 mg PO . DIRECTED MDD 30MG PRN (Reason: Migraine Headache) lisinopril 40 mg tablet 40 mg PO DAILY fluticasone propionate 50 mcg/actuation spray,suspension 2 spray INTRANASAL DAILY PRN (Reason: Allergy Symptoms) Nasal Ryegate (oxymetazoline) 0.05 % Ryegate,Non-Aerosol 2 spray INTRANASAL Q12H PRN (Reason: UNKNOWN) Symbicort 160-4.5 mcg/actuation HFA aerosol inhaler 2 puff INHALATION BID PRN (Reason: UNKNOWN) Linzess 145 mcg capsule 145 mcg PO DAILY PRN (Reason: Constipation) Hylands Leg Cramps 1 tab PO BID PRN (Reason: LEG CRAMPS) lactulose 10 gram/15 mL solution 40 g PO DAILY PRN (Reason: constipation) Qty: 473 1RF pregabalin 150 mg capsule 150 mg PO BID Senna-S 8.6-50 mg tablet 1 tab-cap PO DAILY Qty: 60 0RF Discharge Orders: Discharge ED (Routine); Ordered 10/13/22 Ordered By: David Daniels Referrals: Agustina Whiting, [Primary Care Provider] - Discharge Diet: Clear Liquid Discharge Activity: Resume usual activity Patient Instructions: Opioid Safety, Pain Management Activity Restrictions/Additional Instructions: You are seen today for abdominal pain CT did not show any acute pathology. Be discharged home recommend that you maintain a clear liquid diet for the next 24 to 48 hours advance as tolerated he can use the ondansetron as needed for nausea. Coding Level of Care Code ED Veneer Jointer Helper for Carito Arreguin
[2022-10-13 11:51] LABS: Basophils # 0.1 10^3/uL (0.0-0.1); Basophils % 0.7 %; Eosinophils # 0.1 10^3/uL (0.0-0.8); Eosinophils % 0.6 %; Hematocrit 36.8 % (42.0-52.0); Hemoglobin 11.7 g/dL (11.7-16.6); Lymphocytes # 1.9 10^3/uL (0.8-4.8); Lymphocytes % 15.8 %; Mean Corpuscular HGB Conc 31.8 g/dL (30.0-36.0); Mean Corpuscular Hemoglobin 28.9 pg (28.0-34.0); Mean Corpuscular Volume 90.9 fl (80-94); Mean Platelet Volume 10.3 fL (7.4-10.4); Monocytes # 0.6 10^3/uL (0.2-0.9); Monocytes % 4.8 %; Neutrophils # 9.38 10^3/uL (1.8-7.7); Neutrophils % 77.6 %; Nucleated Red Blood Cells % 0 %; Platelet Count 231 10^3/cmm (130-400); Red Blood Count 4.05 10^6/uL (4.1-5.3); Red Cell Distribution Width 14.8 % (12.1-15.1); White Blood Count 12.1 10^3/uL (4.0-10.0)
[2022-10-13] MEDS: sodium chloride 0.9% 1,000 ML 999 ML IV (12:08)
[2022-10-13] MEDS: ondansetron 2 mg/ML SDV 2 mL 4 MG IVP (12:09)
[2022-10-13 12:40] LABS: Bilirubin Urine Neg (Negative); Blood Urine Neg (Negative); Glucose Urine UA Norm (Normal); Ketones Urine 1+ (Negative); Nitrate Urine Negative (Negative); Protein Urine 1+ (Negative); Specific Gravity, Urine 1.015 (1.005-1.030); Urine Appearance Clear (CLEAR); Urine Color Yellow (Yellow); pH Urine 6 (5-7)
[2022-10-13 12:41] LABS: Add Urine Microscopic? YES; Leukocyte Esterase Urine Trace (Negative); Urobilinogen Urine Norm (Negative)
[2022-10-13 12:45] LABS: Add Urine Culture? No; Bacteria Urine TRACE /hpf; Mucus Urine TRACE /hpf; Squamous Epithelial Cell Urine RARE /hpf (0-5); WBC Urine 0-4 /hpf (0-5)
[2022-10-13 12:50] LABS: Alanine Aminotransferase 10 U/L (0-41); Albumin Level 3.8 g/dL (3.5-5.2); Alkaline Phosphatase 87 U/L (40-130); Anion Gap 16.9 (5-19); Aspartate Amino Transferase 14 U/L (0-40); Blood Urea Nitrogen 9 mg/dL (6-20); Calcium 8.7 mg/dL (8.5-10.5); Carbon Dioxide 27 mmol/L (22-29); Chloride 99 mmol/L (98-107); Globulin 2.2 g/dL (1.3-4.6); Glomerular Filtration Rate 88.6 mL/min (90-130); Glucose 194 mg/dL (65-115); Lipase 15 U/L (13-60); Osmolality Calculated 292 mOsm/kg (285-295); Potassium 3.9 mmol/L (3.5-5.1); Sodium 139 mmol/L (136-145); Total Bilirubin 0.7 mg/dL (0.15-1.2)
[2022-10-13 14:19] VITALS: BP 163/81; PULSE 79; RESP 18; O2SAT 92
== END 2022-10-13 14:19 | disposition home or self-care (01) ==
PROVIDERS: Emergency Provider Family Medicine; PCP Family Medicine
DX: K52.9 Noninfective gastroenteritis and colitis, unspecified (principal); Z79.84 Long term (current) use of oral hypoglycemic drugs; Z79.4 Long term (current) use of insulin
CPT/HCPCS: 74176; 80053; 81001; 83690; 85025; 96374; 99285; J2405; J7030

== ENCOUNTER 2022-10-31 00:33 | Inpatient (IN) | payer MEDICARE, OTHER, SELFPAY ==
[2022-10-31] VITALS (57 sets, daily range): BP systolic 83–185; BP diastolic 32–97; PULSE 52–91; RESP 8–25; TEMP 36.9–37.1; O2SAT 82–100; BMI 50.1
--- NOTE | 2022-10-31 00:34 | XRR_ITS ---
PROCEDURE INFORMATION: Exam: XR Chest Exam date and time: 10/31/2022 1:09 AM Age: 52 years old Clinical indication: Pain; Chest pressure; Additional info: Cp TECHNIQUE: Imaging protocol: Radiologic exam of the chest. Views: 1 view. COMPARISON: CR (CHEST, ) 06/07/2022 12:46 AM FINDINGS: Tubes, catheters and devices: There is a laparoscopic band in good position. Lungs: Calcified pulmonary nodule/nodules, consistent with prior granulomatous disease. Pleural spaces: Unremarkable. No pleural effusion. No pneumothorax. Heart/Mediastinum: There is mild cardiomegaly. Bones/joints: Anterior cervical fixation hardware is in place. XR/XR chest 1V portable [id number] IMPRESSION: 1. Mild cardiomegaly. 2. No acute disease.
--- NOTE | 2022-10-31 00:42 | ECG_ITS ---
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 Measurements Intervals [place] Rate: 90 P: 33 [place]: 157 QRS: -5 QRSD: 101 T: 62 QT: 371 QTc: 454 Interpretive Statements SINUS RHYTHM POSSIBLE ANTERIOR MYOCARDIAL INFARCTION , OF INDETERMINATE AGE [30 ms Q WAVE IN V3/V4, OR R < 0.2 mV IN V4] Compared to ECG 05/01/2022 03:27:36 Sinus bradycardia no longer present Myocardial infarct finding still present Electronically Signed On 10-31-2022 1:42:15 CDT by Urbano Mcgee M.D. [email or web address]
--- NOTE | 2022-10-31 00:49 | CTR_ITS ---
PROCEDURE INFORMATION: Exam: CTA Chest With Contrast Exam date and time: 10/31/2022 1:18 AM Age: 52 years old Clinical indication: Shortness of breath; Patient HX: Shob, nausea; Additional info: SOB TECHNIQUE: Imaging protocol: Computed tomographic angiography of the chest with contrast. 3D rendering (Not supervised by radiologist): MIP and/or 3D reconstructed images were created by the technologist. Radiation optimization: All CT scans at this facility use at least one of these dose optimization techniques: automated exposure control; mA and/or kV adjustment per patient size (includes targeted exams where dose is matched to clinical indication); or iterative reconstruction. Contrast material: OMNI 350; Contrast volume: 100 ml; Contrast route: INTRAVENOUS (IV); REPORTING DATA: Count of CT and Cardiac NM exams in prior 12 months: This patient has received 6 known CTs and 0 known cardiac nuclear medicine studies in the 12 months prior to the current study. COMPARISON: CT angio chest w abd pel w con 09/23/2018 4:50 AM RADIATION DOSE METRICS: Total DLP (mGy-cm): 500.62 FINDINGS: Tubes, catheters and devices: There is a laparoscopic band in good position. Pulmonary arteries: No pulmonary embolism. Aorta: Unremarkable. No aortic aneurysm. No aortic dissection. Lungs: Calcified pulmonary nodule/nodules, consistent with prior granulomatous disease. Pleural spaces: Unremarkable. No pneumothorax. No pleural effusion. Heart: Unremarkable. No cardiomegaly. No pericardial effusion. Mediastinal space: Esophageal lumenal radiodense material related to incidental swallowed material/medication. Lymph nodes: Calcified lymph nodes are present, secondary to prior granulomatous disease. Bones/joints: Unremarkable. No acute fracture. Soft tissues: Unremarkable. CT/CT angio chest PE protcl [id number] IMPRESSION: No pulmonary embolism.
--- NOTE | 2022-10-31 00:55 | ED_ITS ---
HPI - Chest Pain General: Chief Complaint: Chest Pain Stated Complaint: CP Time Seen by Provider: 10/31/22 00:35 Source: patient and EMS Mode of arrival: EMS Limitations: no limitations History of Present Illness: 52-year-old male has a history of coronary disease along with diabetes states he had a angiogram done within this week at [facility] told he had some lesions but did not require any stenting. States he been doing well but tonight roughly 3 hours ago he had a sudden onset of chest pain along with severe shortness of breath he states the pain is let up he still having shortness of breath patient is requiring 4 L oxygen here he is typically not on any oxygen he was told recently he may have congestive heart failure he is not on any diuretics. He denies any cough or fever denies any worsening proving factors. [facility] ED PFSH: Medical History Chest pain Encounter for long-term use of opiate analgesic Generalized anxiety disorder Insomnia Lumbar back pain Opioid contract exists Post-traumatic stress disorder, chronic Psychiatric care Surgical History History of colonoscopy History of elbow surgery History of lumbar fusion History of neck surgery 3x LAP-BAND surgery status Family History Other CAD (coronary artery disease) Cancer Diabetes Hypertension Psychiatric illness Social History Smoking and tobacco status: never smoked Alcohol intake: never Physical Exam Const: COMMON NORMALS: patient oriented x3 GENERAL APPEARANCE: in distress HENMT: COMMON NORMALS: normocephalic and atraumatic HEAD & SCALP: normocephalic and atraumatic Eye: COMMON NORMALS: conjunctivae normal CONJUNCTIVA: Yes conjunctivae normal Neck/C-Spine: COMMON NORMALS: full ROM and supple Chest: COMMONS NORMALS: normal inspection of the chest and normal palpation of entire chest wall Resp: COMMON NORMALS: No retractions and No use of accessory muscles EFFORT & INSPECTION: Yes tachypneic Cardio: COMMON NORMALS: regular rate, regular rhythm and No murmurs present (Cardio) RATE: regular rate RHYTHM: regular rhythm GI: COMMON NORMALS: Normal to inspection, nondistended, normoactive bowel sounds present, Soft to palpation, non-tender and no masses PALPATION: Yes Soft to palpation Extremity: COMMON NORMALS: normal to inspection and full ROM Neuro: COMMON NORMALS: patient oriented x3, moves all extremities and no focal motor deficits Psych: COMMON NORMALS: mental status grossly normal, Normal thought process present and cooperative THOUGHT PROCESS: Normal thought process present Skin: COMMON NORMALS: no rashes or lesions noted and no wounds GENERAL SKIN EXAM: no rashes or lesions noted Course Vital Signs: Vital signs: Vital Signs Temperature 98.4 F 10/31/22 00:35 Pulse Rate 86 10/31/22 01:46 Respiratory Rate 18 10/31/22 01:46 Blood Pressure 109/50 10/31/22 02:20 Pulse Oximetry 93 10/31/22 01:46 Oxygen Delivery Me thod Nasal Cannula 10/31/22 00:35 Oxygen Flow Rate 4 10/31/22 00:35 MDM - Chest Pain Medical Decision Making Patient presents here with severe chest pain while some dyspnea started suddenly after he actually took a lot of his pills that were recently started after his heart cath. On his CT he had no PE no signs of dissection no tamponade his troponins here are normal as well he did have a possible pill fragments on the CT his pain could have been from esophagitis as it was resolved here with a GI cocktail. He did have a period of hypotension here that improved with IV fluids I did stand him up and walked him and he became orthostatic and hypotensive again. He has no signs of infection here no fever he did start metoprolol lisinopril and isosorbide just recently and take them all before he came in [facility] as well and I believe his hypotension is likely from his blood pressure medications. His dyspnea is improved I turned his oxygen off his pulse ox has been normal on room air here. Did speak to the hospitalist will watch in the ICU due to his hypotension and the pain he had and trend his troponins. Medical Records I reviewed the patient's medical records. Lab Data I reviewed the patient's lab results. 10/31/22 00:50 10/31/22 00:50 Radiology Impressions Chest X-Ray 10/31/22 00:34 IMPRESSION: 1. Mild cardiomegaly. 2. No acute disease. Chest CTA 10/31/22 00:49 IMPRESSION: No pulmonary embolism. Laboratory Results WBC 14.5 10^3/uL (4.0-10.0) H 10/31/22 00:50 RBC 4.25 10^6/uL (4.1-5.3) 10/31/22 00:50 Hgb 12.1 g/dL (11.7-16.6) 10/31/22 00:50 Hct 38.3 % (42.0-52.0) L 10/31/22 00:50 MCV 90.1 fl (80-94) 10/31/22 00:50 MCH 28.5 pg (28.0-34.0) 10/31/22 00:50 MCHC 31.6 g/dL (30.0-36.0) 10/31/22 00:50 RDW 15.2 % (12.1-15.1) H 10/31/22 00:50 Plt Count 274 10^3/cmm (130-400) 10/31/22 00:50 MPV 9.8 fL (7.4-10.4) 10/31/22 00:50 Neut % (Auto) 71.7 % 10/31/22 00:50 Lymph % (Auto) 20.2 % 10/31/22 00:50 [place] % (Auto) 5.6 % 10/31/22 00:50 Eos % (Auto) 1.2 % 10/31/22 00:50 Baso % (Auto) 0.7 % 10/31/22 00:50 Neut # (Auto) 10.43 10^3/uL (1.8-7.7) H 10/31/22 00:50 Lymph # (Auto) 2.9 10^3/uL (0.8-4.8) 10/31/22 00:50 [place] # (Auto) 0.8 10^3/uL (0.2-0.9) 10/31/22 00:50 Eos # (Auto) 0.2 10^3/uL (0.0-0.8) 10/31/22 00:50 Baso # (Auto) 0.1 10^3/uL (0.0-0.1) 10/31/22 00:50 Nucleated RBC % (auto) 0 % 10/31/22 00:50 Nucleated RBCs # 0.0 /100WBC 10/31/22 00:50 PT 13.00 SECONDS (12.1-14.9) 10/31/22 00:50 INR 0.95 (0.8-1.2) 10/31/22 00:50 Specimen Type Arterial 10/31/22 01:33 Sample Site Radial, left 10/31/22 01:33 ABG pH 7.36 (7.35-7.45) 10/31/22 01:33 ABG pCO2 50.7 mmHg (35-45) H 10/31/22 01:33 ABG pO2 72.8 mmHg (80.0-100.0) L 10/31/22 01:33 ABG HCO3 28.6 mmol/L (22-26) H 10/31/22 01:33 ABG Base Excess 2.3 mmol/L (-2.0-2.0) H 10/31/22 01:33 Adalberto Test Pos 10/31/22 01:33 Hematocrit 37.3 % (42-52) L 10/31/22 01:33 O2 Delivery Device Nc 10/31/22 01:33 O2 Liters/Min 1.5 % 10/31/22 01:33 Audio Specialist ID [email or web address] 10/31/22 01:33 Sodium 139 mmol/L (136-145) 10/31/22 00:50 Potassium 3.7 mmol/L (3.5-5.1) 10/31/22 00:50 Chloride 98 mmol/L (98-107) 10/31/22 00:50 Carbon Dioxide 28 mmol/L (22-29) 10/31/22 00:50 Anion Gap 16.7 (5-19) 10/31/22 00:50 BUN 20 mg/dL (6-20) 10/31/22 00:50 Creatinine 1.7 mg/dL (0.7-1.2) H 10/31/22 00:50 GFR Calculation 42.5 mL/min (90-130) L 10/31/22 00:50 Glucose 159 mg/dL (65-115) H 10/31/22 00:50 POC Glucose 186 mg/dL (70-110) H 10/31/22 01:40 Calculated Osmolality 294 mOsm/kg (285-295) 10/31/22 00:50 Lactate 2.6 mmol/L (0.5-2.2) H 10/31/22 00:50 Calcium 8.5 mg/dL (8.5-10.5) 10/31/22 00:50 Total Bilirubin 0.3 mg/dL (0.15-1.2) 10/31/22 00:50 AST 18 U/L (0-40) 10/31/22 00:50 ALT 16 U/L (0-41) 10/31/22 00:50 Alkaline Phosphatase 76 U/L (40-130) 10/31/22 00:50 Troponin T Baseline 16 ng/L (0-15) H 10/31/22 00:50 Troponin T 120 Minute 15.52 ng/L (0-15) H 10/31/22 02:41 Delta Troponin T -0.48 ABS# (0-10) L 10/31/22 02:41 NT-Pro-B Natriuret Pep 39 pg/mL (0-125) 10/31/22 00:50 Total Protein 6.2 g/dL (6.6-8.7) L 10/31/22 00:50 Albumin 3.5 g/dL (3.5-5.2) 10/31/22 00:50 Globulin 2.7 g/dL (1.3-4.6) 10/31/22 00:50 Lipase 39 U/L (13-60) 10/31/22 00:50 Urine Color Yellow (Yellow) 10/31/22 02:40 Urine Appearance Clear (CLEAR) 10/31/22 02:40 Urine pH 6 (5-7) 10/31/22 02:40 Ur Specific [place] 1.000 (1.005-1.030) L 10/31/22 02:40 Urine Protein Neg (Negative) 10/31/22 02:40 Urine Glucose (UA) Norm (Normal) 10/31/22 02:40 Urine Ketones Negative (Negative) 10/31/22 02:40 Urine Blood Neg (Negative) 10/31/22 02:40 Urine Nitrate Negative (Negative) 10/31/22 02:40 Urine Bilirubin Neg (Negative) 10/31/22 02:40 Urine Urobilinogen Norm mg/dL (Negative) 10/31/22 02:40 Ur Leukocyte Esterase Negative (Negative) 10/31/22 02:40 EKG Data EKG 1: I personally reviewed and interpreted this EKG as follows: EKG interpretation date: 10/31/22 EKG interpretation time: 00:42 Interpretation: nsr hr [address] or t wave abnormalities qrs 101 qtc 418 Discharge Plan Discharge Patient Disposition: Admitted As Inpatient Clinical Impression: Chest pain, Hypotension, Orthostasis, Dyspnea Condition: Stable Coding Level of Care Code ED Bottom Buffer for Carito Arreguin
[2022-10-31 01:00] LABS: Basophils # 0.1 10^3/uL (0.0-0.1); Basophils % 0.7 %; Eosinophils # 0.2 10^3/uL (0.0-0.8); Eosinophils % 1.2 %; Hematocrit 38.3 % (42.0-52.0); Hemoglobin 12.1 g/dL (11.7-16.6); Lymphocytes # 2.9 10^3/uL (0.8-4.8); Lymphocytes % 20.2 %; Mean Corpuscular HGB Conc 31.6 g/dL (30.0-36.0); Mean Corpuscular Hemoglobin 28.5 pg (28.0-34.0); Mean Corpuscular Volume 90.1 fl (80-94); Mean Platelet Volume 9.8 fL (7.4-10.4); Monocytes # 0.8 10^3/uL (0.2-0.9); Monocytes % 5.6 %; Neutrophils # 10.43 10^3/uL (1.8-7.7); Neutrophils % 71.7 %; Nucleated Red Blood Cells % 0 %; Platelet Count 274 10^3/cmm (130-400); Red Blood Count 4.25 10^6/uL (4.1-5.3); Red Cell Distribution Width 15.2 % (12.1-15.1); White Blood Count 14.5 10^3/uL (4.0-10.0)
[2022-10-31] MEDS: ondansetron 2 mg/ML SDV 2 mL 4 MG IVP (01:00)
[2022-10-31] MEDS: iohexol 350 mg/mL 500 mL Btl (per mL) IV (01:07)
[2022-10-31 01:10] LABS: INR 0.95 (0.8-1.2)
[2022-10-31 01:16] LABS: Troponin(5th) Baseline 16 ng/L (0-15)
[2022-10-31 01:19] LABS: Alanine Aminotransferase 16 U/L (0-41); Albumin Level 3.5 g/dL (3.5-5.2); Alkaline Phosphatase 76 U/L (40-130); Anion Gap 16.7 (5-19); Aspartate Amino Transferase 18 U/L (0-40); Blood Urea Nitrogen 20 mg/dL (6-20); Calcium 8.5 mg/dL (8.5-10.5); Carbon Dioxide 28 mmol/L (22-29); Chloride 98 mmol/L (98-107); Globulin 2.7 g/dL (1.3-4.6); Glomerular Filtration Rate 42.5 mL/min (90-130); Glucose 159 mg/dL (65-115); Lipase 39 U/L (13-60); Osmolality Calculated 294 mOsm/kg (285-295); Potassium 3.7 mmol/L (3.5-5.1); Sodium 139 mmol/L (136-145); Total Bilirubin 0.3 mg/dL (0.15-1.2); Total Protein 6.2 g/dL (6.6-8.7)
[2022-10-31 01:42] LABS: Glucose Point of Care 186 mg/dL (70-110)
[2022-10-31 01:43] LABS: ABG PCO2 50.7 mmHg (35-45); ABG PH Result 7.36 (7.35-7.45); Arterial Blood Gas Hematocrit 37.3 % (42-52); Base Excess ABG 2.3 mmol/L (-2.0-2.0); Blood Gas Allen Test Pos; Blood Gas Sample Type Arterial; HCO3 ABG 28.6 mmol/L (22-26); PO2 ABG 72.8 mmHg (80.0-100.0)
[2022-10-31 01:44] LABS: Blood Gas LPM 1.5 %; Blood Gas Sample Site Radial, left; Oxygen Device NC
[2022-10-31 02:09] LABS: Lactate (Lactic Acid level) 2.6 mmol/L (0.5-2.2)
[2022-10-31] MEDS: sodium chloride 0.9% 1,000 ML 999 ML IV ×2 (02:17→02:22)
[2022-10-31 02:18] LABS: NT Pro B Type Natriuretic Pept 39 pg/mL (0-125)
--- NOTE | 2022-10-31 02:34 | ECG_ITS ---
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 Measurements Intervals [place] Rate: 81 P: 47 [place]: 185 QRS: 18 QRSD: 85 T: 58 QT: 391 QTc: 454 Interpretive Statements SINUS RHYTHM SEPTAL MYOCARDIAL INFARCTION , PROBABLY OLD [40+ ms Q WAVE IN V1/V2] Compared to ECG 10/31/2022 00:42:41 No significant changes Electronically Signed On 10-31-2022 14:48:50 CDT by Juan De Leon M.D. [email or web address]
[2022-10-31 02:46] LABS: Add Urine Microscopic? NO; Charge for UA Resulting for Rev
[2022-10-31 02:49] LABS: Urine Appearance Clear (CLEAR); Urine Color Yellow (Yellow); pH Urine 6 (5-7)
[2022-10-31 02:50] LABS: Bilirubin Urine Neg (Negative); Blood Urine Neg (Negative); Glucose Urine UA Norm (Normal); Ketones Urine Negative (Negative); Leukocyte Esterase Urine Negative (Negative); Nitrate Urine Negative (Negative); Protein Urine Neg (Negative); Urobilinogen Urine Norm (Negative)
[2022-10-31] MEDS: lidocaine 2% viscous 15 ML, aluminum-mag hydrox-simethicon 30 ML, sucralfate oral liq 1 GM PO (02:55)
[2022-10-31 03:02] LABS: Troponin 5 2HR 15.52 ng/L (0-15)
[2022-10-31 03:03] LABS: Troponin 5 2HR Delta -0.48 ABS# (0-10)
[2022-10-31] MEDS: sodium chloride 0.9% 500 ML 999 ML IV (04:32)
--- NOTE | 2022-10-31 05:30 | P.HP_ITS ---
Providers/Chief Complaint Admitting Physician: Alex Tapia MD Primary Care Provider: Agustnia Whiting DO Chief Complaint: CP History of Present Illness Sergei Lucas is a 52 year old male with a past medical history of dependent type 2 diabetes mellitus, hypertension, hyperlipidemia, obesity, history of gastric banding, chronic pain, who presents [facility] for chest pain, lightheadedness, shortness of breath. Patient tells me that this evening, he had severe substernal chest pain, in the middle of the chest, associate with shortness of breath, which significantly worsened to 10 out of 10 chest pain associate with lightheadedness, diaphoresis, nonradiating, no nausea, no vomiting. He tells me that he had a angiogram at [facility] within the week which showed some lesions, but none requiring stenting. He tells me that the pain was so severe he had to come in ambulance without he was in a pass out to the severity of the pain. Denies any fevers, no cough, does report recently increasing shortness of breath with exertion. Does report back pain, recent was in the emergency room 2 weeks ago for abdominal pain, continues to have left upper quadrant abdominal pain. No diarrhea reported. He is on Augmentin he tells me twice a day. Denies any dysuria, hematuria. No headache, no blurry vision. Review of Systems Const: Reports: fatigue and malaise; Denies: fever(s) or chills Eyes: Denies: change in vision Card: Reports: chest pain Resp: Reports: dyspnea GI: Denies: abdominal pain, nausea or vomiting : Denies: flank pain or difficulty urinating Neuro: Reports: dizziness; Denies: headache(s) or weakness in extremities Medications/Allergies Home Medications Medication Instructions Recorded Confirmed Last Taken Type furosemide 20 mg tablet (Lasix) See Rx Instructions .Route .COMPLEX 09/15/19 09/28/22 06/20/20 History pregabalin 200 mg capsule (Lyrica) 200 mg PO Q12H 09/15/19 09/28/22 06/20/20 History hydrocodone 5 mg-acetaminophen 325 1 tab PO BID PRN pain 30 days #60 11/03/19 09/28/22 06/20/20 Rx mg tablet tabs insulin human U-100 NPH-regulr See Rx Instructions .Route .COMPLEX 06/20/20 09/28/22 06/20/20 History 70-30 mix 100 unit/mL subcutaneous susp (Humulin 70/30 U-100 Insulin) cyanocobalamin (vitamin B-12) 1,000 mcg IM .every 30 days 07/24/21 09/28/22 Unknown History 1,000 mcg/mL injection solution cyclobenzaprine 10 mg tablet 10 mg PO TID PRN Muscle Spasm 07/24/21 09/28/22 Unknown History metformin 500 mg tablet,extended 500 mg PO QAM 07/24/21 09/28/22 Unknown History release 24 hr montelukast 10 mg tablet 10 mg PO DAILY 07/24/21 09/28/22 Unknown History folic acid 1 mg tablet 1 mg PO DAILY PRN UNKNOWN 03/21/22 09/28/22 Unknown History methotrexate sodium 2.5 mg tablet 15 mg PO Q7D 03/21/22 09/28/22 Unknown History Diabetic shoes with 3 inserts #1 ea 04/24/22 09/28/22 Unknown Rx Hylands Leg Cramps 1 tab PO BID PRN LEG CRAMPS 05/01/22 09/28/22 Unknown History albuterol sulfate 90 mcg/actuation 2 puff inhalation Q6H PRN 05/01/22 09/28/22 Unknown History aerosol inhaler Shortness Of Breath budesonide-formoterol HFA 160 2 puff inhalation BID PRN UNKNOWN 05/01/22 09/28/22 Unknown History mcg-4.5 mcg/actuation aerosol inhaler (Symbicort) cetirizine 10 mg tablet (Zyrtec) 10 mg PO DAILY 05/01/22 09/28/22 Unknown History diphenhydramine HCl 25 mg tablet 25 mg PO BID PRN Allergy Symptoms 05/01/22 09/28/22 Unknown History (Benadryl Allergy) fluticasone propionate 50 2 spray intranasal DAILY PRN 05/01/22 09/28/22 Unknown History mcg/actuation nasal Allergy Symptoms spray,suspension lactulose 10 gram/15 mL oral 40 g (60 mL) PO DAILY PRN 05/01/22 09/28/22 Unknown Rx solution constipation #473 mL levofloxacin 500 mg tablet 500 mg PO DAILY 05/01/22 09/28/22 Unknown History linaclotide 145 mcg capsule 145 mcg PO DAILY PRN Constipation 05/01/22 09/28/22 Unknown History (Linzess) lisinopril 40 mg tablet 40 mg PO DAILY 05/01/22 09/28/22 Unknown History lorazepam 1 mg tablet 1 mg PO DAILY PRN Anxiety 05/01/22 09/28/22 Unknown History nitroglycerin 0.4 mg sublingual 0.4 mg sublingual Q5M PRN Chest 05/01/22 09/28/22 Unknown History tablet (Nitrostat) Pain nystatin 100,000 unit/gram topical 1 applic topical BID 05/01/22 09/28/22 Unknown History cream nystatin 100,000 unit/gram topical 1 applic topical DAILY PRN UNKNOWN 05/01/22 09/28/22 Unknown History powder oxymetazoline 0.05 % nasal spray 2 spray intranasal Q12H PRN UNKNOWN 05/01/22 09/28/22 Unknown History (Nasal [place] (oxymetazoline)) pregabalin 150 mg capsule 150 mg PO BID 05/01/22 09/28/22 Unknown History rizatriptan 5 mg disintegrating 5 mg PO . DIRECTED PRN Migraine 05/01/22 09/28/22 Unknown History tablet Headache sennosides 8.6 mg-docusate sodium 1 tab-cap PO DAILY #60 tabs 05/02/22 09/28/22 Unknown Rx 50 mg tablet (Senna-S) pantoprazole 40 mg tablet,delayed 40 mg PO DAILY #30 tabs 05/07/22 09/28/22 Unknown Rx release (Protonix) citalopram 40 mg tablet (Celexa) 40 mg PO DAILY@1000 #90 tabs 09/28/22 09/28/22 Unknown Rx fluticasone fur. 100 mcg-umeclid 1 inh inhalation DAILY 09/28/22 09/28/22 Unknown History 62.5 mcg-vilant 25 mcg inhalat.powder (Trelegy Ellipta) hydrochlorothiazide 25 mg tablet 25 mg PO DAILY 09/28/22 09/28/22 Unknown History lamotrigine 200 mg tablet 200 mg PO DAILY@1000 #90 tabs 09/28/22 09/28/22 Unknown Rx (Lamictal) prazosin 5 mg capsule 5 mg PO BEDTIME #90 caps 09/28/22 09/28/22 Unknown Rx trazodone 300 mg tablet 300 mg PO BEDTIME #90 tabs 09/28/22 09/28/22 Unknown Rx trazodone 50 mg tablet 50 mg PO .HS #90 tabs 09/28/22 09/28/22 Unknown Rx ondansetron HCl 4 mg tablet 4 mg PO Q6H PRN nausea and 10/13/22 Unknown Rx vomiting #20 tabs Allergies Allergy/AdvReac Type Severity Reaction Status Date / Time promethazine [From Phenergan] Allergy Unknown HARD TO Verified 10/31/22 00:47 BREATH PFSH Acute PFSH: Medical History Chest pain Encounter for long-term use of opiate analgesic Generalized anxiety disorder Insomnia Lumbar back pain Opioid contract exists Post-traumatic stress disorder, chronic Psychiatric care Surgical History History of colonoscopy History of elbow surgery History of lumbar fusion History of neck surgery 3x LAP-BAND surgery status Family History Other CAD (coronary artery disease) Cancer Diabetes Hypertension Psychiatric illness Social History Smoking and tobacco status: never smoked Alcohol intake: never Vitals/I&O/Wt Last Vital Signs Temp 98.4 F 10/31/22 00:35 Pulse 67 10/31/22 05:03 Resp 16 10/31/22 05:03 BP 108/52 10/31/22 05:03 Pulse Ox 100 10/31/22 05:03 O2 Del Method Nasal Cannula 10/31/22 05:05 O2 Flow Rate 4 10/31/22 00:35 10/30/22 10/30/22 10/31/22 14:59 22:59 06:59 Intake Total 1583.25 / 1583.25 Balance 1583.25 / 1583.25 Weight last 48 hrs Weight 149.685 kg Physical Exam Const: COMMON NORMALS: no acute distress and patient oriented x3 HENMT: COMMON NORMALS: normocephalic HEAD & SCALP: normocephalic Eye: COMMON NORMALS: Equal, round and reactive pupils present and EOMs intact bilaterally Lymph: LYMPHATIC: no lymphadenopathy noted Resp: COMMON NORMALS: normal respiratory effort, No retractions, No use of accessory muscles and clear to auscultation bilaterally AUSCULTATION: clear to auscultation bilaterally Cardio: COMMON NORMALS: regular rate, regular rhythm, S1 normal heart sound present and S2 normal heart sound present RATE: regular rate RHYTHM: regular rhythm HEART SOUNDS: S1 normal heart sound present and S2 normal heart sound present GI: COMMON NORMALS: Normal to inspection, nondistended, normoactive bowel sounds present, Soft to palpation and non-tender PALPATION: Yes Soft to palpation : COMMON NORMALS: Yes no CVA tenderness Extremity: COMMON NORMALS: capillary refill normal, no calf tenderness and no pedal edema Neuro: COMMON NORMALS: patient oriented x3, CN's II-XII intact bilaterally, moves all extremities and no focal motor deficits Psych: COMMON NORMALS: mental status grossly normal Data 10/31/22 00:50 10/31/22 00:50 A&P Assessment and plan (1) Chest pain: (2) Hypotension: (3) Orthostasis: (4) Dyspnea: (5) Leukocytosis: (6) Diabetic peripheral neuropathy associated with type 2 diabetes mellitus: (7) LAP-BAND surgery status: (8) Insulin dependent type 2 diabetes mellitus: (9) Elevated lactic acid level: Plan Chest pain -Recently had a coronary angiogram at [facility], no stent lesions, will obtain records -Serial EKGs, troponins, telemetry monitoring -Cardiac echo -Currently chest pain-free -Aspirin - statin Orthostasis -Possibly secondary to polypharmacy -Will hold blood pressure medications -Repeat orthostatic vitals every 8 hours Lactic acidosis -Likely secondary to orthostatics, polypharmacy, possible dehydration -Gentle IV hydration, monitor Acute kidney injury -Secondary orthostasis, polypharmacy, dehydration -Monitor urine output, monitor kidney function Shortness of breath, chest pain -CT angiogram of the chest does show a radiopaque object in esophagus, possibly a pill -Speech therapy eval -Clear liquid diet -Patient has a history of dysphagia, has a history of a Lap-Band, follows up with Dr. Adame was supposed to have an EGD due to complaints of dysphagia, but never came to fruition, can consider during this hospitalization Insulin-dependent type 2 diabetes mellitus, low-dose sliding scale Leukocytosis -Etiology unclear -Urinalysis unremarkable - CT angiogram no focal pneumonia -Recently had a CT scan abdomen pelvis with no acute findings -Pro-Volodymyr, CRP -Sputum cultures, blood cultures, respiratory viral panel Chronic pain, continue hydrocodone Hold Lamictal, hold Lyrica Attestations Medical Necessity Statement*: Patient requires hospitalization for orthostatsis, low blood pressures, chest pain, shortness of breath, inpatient, greater than 2 midnights Diagnoses Chest pain R07.9 Hypotension I95.9 Orthostasis I95.1 Dyspnea R06.00 Leukocytosis D72.829 Diabetic peripheral neuropathy associated with type 2 diabetes mellitus E11.42 LAP-BAND surgery status Z98.84 Insulin dependent type 2 diabetes mellitus E11.9; Z79.4 Elevated lactic acid level R79.89
[2022-10-31 06:06] LABS: NT Pro B Type Natriuretic Pept 40 pg/mL (0-125); Procalcitonin 0.08 ng/mL (0-0.5)
[2022-10-31 06:16] LABS: C Reactive Protein 24.2 mg/L (0.0-4.9)
--- NOTE | 2022-10-31 06:31 | ECG_ITS ---
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 Measurements Intervals [place] Rate: 73 P: 30 NC: 157 QRS: 7 QRSD: 96 T: 47 QT: 389 QTc: 430 Interpretive Statements SINUS RHYTHM Compared to ECG 10/31/2022 02:07:55 Myocardial infarct finding no longer present Electronically Signed On 10-31-2022 14:49:30 CDT by Juan De Leon M.D. [id number]
[2022-10-31 07:36] LABS: Troponin 5 6HR 14.83 ng/L (0-15)
[2022-10-31 07:39] LABS: Troponin 5 6HR Delta -1.17 ng/L (0-12)
--- NOTE | 2022-10-31 07:55 | USCV_ITS ---
Sergei Lucas Age: 52 Gender: M : 1970 Exam Date: 10/31/2022 09:12 Ordering Phys: Alex Tapia MD Technologist: KIM [place] [facility] [place]ication: CHEST PAIN BP: 115 / 67 HR: 59 Rhythm: Sinus Technical Quality: Adequate MEASUREMENTS (Male / Female) Normal Values 2D ECHO LVOT Diameter 2.0 cm LV Ejection Fraction MOD 2C 54.6 % LV Ejection Fraction 2C AL 55.0 % LA Diameter 3.1 cm LA Width 3.7 cm LA Height 4.8 cm RA Width 3.2 cm RA Height 4.6 cm Aorta at Sinotubular Diameter 2.9 cm M-MODE Aortic Annulus Diameter 3.3 cm LA Ao Ratio MM 0.9 MV E Point Septal Separation 0.9 cm DOPPLER AV Peak Velocity 200.7 cm/s LVOT Peak Velocity 120.0 cm/s AV Area Cont Eq vti 1.8 cm squared AV Area Cont Eq pk 1.9 cm squared MV Peak Velocity 111.0 cm/s MV Area PHT 4.1 cm squared Mitral E to A Ratio 1.1 MV E' Velocity 60.0 cm/s Mitral E to MV E' Ratio 10.2 Mitral E to LV E' Lateral Ratio 8.7 Mitral E to LV E' Septal Ratio 12.4 TR Peak Velocity 193.1 cm/s TR Peak Gradient 14.9 mmHg TR Mean Velocity 143.9 cm/s TR Mean Gradient 9.5 mmHg TR Velocity Time Integral 50.4 cm TV Peak E Velocity 49.0 cm/s Right Atrial Pressure 8.0 mmHg Pulmonary Artery Systolic Pressu 22.9 mmHg PV Peak Velocity 104.0 cm/s RV Acceleration Time 0.2 s RV Ejection Time 0.4 s RV AcT/ET 0.7 FINDINGS Left Ventricle Normal left ventricular size and systolic function, EF 55 %. No regional wall motion abnormalities. Right Ventricle Possibly of normal size ejection fraction Right Atrium Right atrium not well visualized. Left Atrium Possibly of normal size Mitral Valve No gross abnormalities noted Aortic Valve Possibly normal RV size ejection fraction. Thickened aortic valve. Mild aortic valve stenosis, mean gradient 7.5 mmHg, DELVIS 1.8 cm squared. Peak velocity of 2.02 m/s with a peak gradient of 16 and a mean gradient of 8 mmHg Tricuspid Valve Tricuspid valve not well visualized. Pulmonic Valve Pulmonic valve not well visualized. Pericardium Aorta IVC Inferior vena cava not visualized. CONCLUSIONS Normal left ventricular size and systolic function, EF 55 %. No regional wall motion abnormalities. Thickened aortic valve. Mild aortic valve stenosis, mean gradient 7.5 mmHg, DELVIS 1.8 cm squared. Peak velocity of 2.02 m/s with a peak gradient of 16 and a mean gradient of 8 mmHg. Possibly normal RV size and ejection fraction. There is no pericardial effusion. Technically difficult study because of the poor ultrasonic window and patient's body habitus (Echo contrast - Optison was used to delineate the endocardium and to estimate the LV ejection fraction) Dr Neel Pandey MD [facility] (Electronically Signed) Final Date: 31 October 2022 17:51 S
[2022-10-31] MEDS: HYDROcodone-acetaminophen 5-325 mg Tablet 1 TAB PO (08:17)
--- NOTE | 2022-10-31 08:23 | PC.NURSE ---
PT BLOOD GLUCOSE AT 0825 IS 236
[2022-10-31 08:26] LABS: Glucose Point of Care 236 mg/dL (70-110)
[2022-10-31] MEDS: insulin lispro 100 unit/1 mL SUBCUT (08:30)
[2022-10-31 09:46] LABS: Erythrocyte Sedimentation Rate 20 mm/hr (0-10)
[2022-10-31] MEDS: perflutren protein-a microsphr 0.22 mg/mL SDV 3 mL IV (09:49)
[2022-10-31 09:55] LABS: Estmated Average Glucose 183
[2022-10-31 10:05] LABS: Chol HDL Ratio 5.21 mg/dL (1.0-5.00); Cholesterol 172 mg/dL (0-200); Creatine Phosphokinase 138 U/L (39-308); HDL Cholesterol 33 mg/dL (60-100); LDL Cholesterol Calculated 74 mg/dL (50-129); LDL HDL Ratio 2.24 RATIO (0.00-3.22); Thyroid Stimulating Hormone 1.94 uIU/mL (0.27-4.20); Triglycerides 324 mg/dL (0-150)
[2022-10-31] MEDS: pantoprazole DR 40 mg Tablet PO (10:05)
[2022-10-31] MEDS: aspirin 81 mg EC Tablet PO (10:05)
[2022-10-31] MEDS: citalopram 20 mg Tablet 40 MG PO (10:05)
[2022-10-31] MEDS: enoxaparin 40 mg/0.4 mL Syringe SUBCUT (10:10)
[2022-10-31] MEDS: sodium chloride 0.9% 1,000 ML 50 ML IV (10:13)
--- NOTE | 2022-10-31 12:00 | PC.PHAR ---
pt unable to verify meds- attempted to reach 2 times to verify- will try again later
--- NOTE | 2022-10-31 15:56 | PM.MISC ---
Miscellaneous Note Purpose of Documentation: Overnight labs and H&P are reviewed. Patient does not have any chest pain at this moment. We will recheck orthostatics. He is resting comfortably. He is somnolent, however wakes up easily to have a conversation. Patient has a known history of obstructive sleep apnea for which he uses a BiPAP at nighttime. Troponin series not concerning for ACS. Recently had an angiogram at [facility] which was unremarkable. Records are awaited. CTA negative for PE Unclear cause of chest pain overnight, may be related to esophageal spasm versus coronary vasospasm. Will increase Imdur if orthostatics are within range. Patient will likely need an endoscopy. Review of prior records show that patient was supposed to have an endoscopy with her gastric surgeon Dr. Franklin and likely revision of the Lap-Band due to his ongoing dysphagia, however this did not come to free rotation. Patient is currently scheduled to meet with gastric surgeon in [place] in December 2022. Currently we do not have bariatric surgery or minimally invasive bariatric capability available at our center. Since his dysphagia has been ongoing for at least a year this is not currently an acute issue. We will obtain swallow eval. If patient able to swallow will likely defer endoscopy for outpatient.
[2022-10-31 16:40] LABS: Glucose Point of Care 219 mg/dL (70-110)
[2022-10-31 18:04] LABS: Adenovirus Not Detected (NOT DETECT); Chlamydia Pneumoniae Not Detected (NOT DETECT); Coronavirus 229E,HKU1,NL63,OC4 Not Detected (NOT DETECT); Human Metapneumovirus Not Detected (NOT DETECT); Human Rhinovirus/Enterovirus Not Detected (NOT DETECT); Influenza A Not Detected (NOT DETECT); Influenza A H1 Not Detected (NOT DETECT); Influenza A H1-2009 Not Detected (NOT DETECT); Influenza A H3 Not Detected (NOT DETECT); Influenza B Not Detected (NOT DETECT); Mycoplasma Pneumoniae Not Detected (NOT DETECT); Parainfluenza Virus Type 1 Not Detected (NOT DETECT); Parainfluenza Virus Type 2 Not Detected (NOT DETECT); Parainfluenza Virus Type 3 Not Detected (NOT DETECT); Parainfluenza Virus Type 4 Not Detected (NOT DETECT); Respiratory Syncytial Virus A Not Detected (NOT DETECT); Respiratory Syncytial Virus B Not Detected (NOT DETECT); SARS-COV-2 Not Detected (NOT DETECT)
[2022-10-31] MEDS: atorvastatin 40 mg Tablet PO (21:02)
[2022-10-31] MEDS: trazodone 150 mg Tablet 300 MG PO (21:08)
[2022-10-31 21:55] LABS: Glucose Point of Care 270 mg/dL (70-110)
[2022-11-01] VITALS (30 sets, daily range): BP systolic 145–185; BP diastolic 65–93; PULSE 55–82; RESP 5–22; TEMP 37.2; O2SAT 86–96
[2022-11-01] MEDS: HYDROcodone-acetaminophen 5-325 mg Tablet 1 TAB PO (03:19)
[2022-11-01] MEDS: isosorbide mononitrate ER 60 mg Tablet PO (09:11)
[2022-11-01] MEDS: enoxaparin 40 mg/0.4 mL Syringe SUBCUT (09:11)
[2022-11-01] MEDS: pantoprazole DR 40 mg Tablet PO (09:11)
[2022-11-01] MEDS: citalopram 20 mg Tablet 40 MG PO (09:11)
[2022-11-01] MEDS: aspirin 81 mg EC Tablet PO (09:11)
[2022-11-01] MEDS: insulin lispro 100 unit/1 mL SUBCUT ×2 (09:14→12:53)
[2022-11-01 09:15] LABS: Glucose Point of Care 219 mg/dL (70-110)
[2022-11-01 12:42] LABS: Glucose Point of Care 300 mg/dL (70-110)
[2022-11-01] MEDS: sodium chloride 0.9% 1,000 ML 50 ML IV (12:54)
[2022-11-01] MEDS: acetaminophen 325 mg Tablet 650 MG PO (13:34)
--- NOTE | 2022-11-01 14:02 | XRR_ITS ---
PROCEDURE INFORMATION: Exam: XR Chest Exam date and time: 11/01/2022 1:06 PM Age: 52 years old Clinical indication: Other: Esophegal pill; Additional info: Follow up esophegal pill TECHNIQUE: Imaging protocol: Radiologic exam of the chest. Views: 1 view. COMPARISON: 1. CT angio chest PE protcl [id number] 10/31/2022 1:18 AM 2. CR (CHEST, ) 10/31/2022 1:09 AM FINDINGS: Lungs: Lung volumes are very low. There is no focal consolidation. Pleural spaces: No pneumothorax or large effusion. Heart/Mediastinum: The pill visible in the esophagus on CT of 10/31/2022 was not visible radiographically on 10/31/2022 and is not visible currently. The cardiac silhouette is prominent although accentuated by AP technique and low lung volumes. Bones/joints: Lower cervical fusion noted. No acute fracture. XR/XR chest 1V portable [id number] IMPRESSION: The pill visible in the esophagus on chest CT 10/31/2022 is not visible on frontal chest radiographs. Consider lateral chest radiograph or repeat CT.
--- NOTE | 2022-11-01 14:18 | P.DS_ITS ---
Discharge Providers Date of Admission: 10/31/22 05:02 Date of Discharge: November 01, 2022 Attending Provider at Admission: Alex Tapia MD Attending Provider at Discharge: Gilda Mayers MD Primary Care Provider: Agustina Whiting DO Diagnoses at Discharge Discharge Diagnosis (1) Chest pain: Status: Acute (2) Hypotension: Status: Acute (3) Orthostasis: Status: Acute (4) Dyspnea: Status: Acute (5) Leukocytosis: Status: Acute (6) Diabetic peripheral neuropathy associated with type 2 diabetes mellitus: Status: Acute (7) LAP-BAND surgery status: Status: Acute (8) Insulin dependent type 2 diabetes mellitus: Status: Acute (9) Elevated lactic acid level: Status: Acute Reason for Visit Reason for Visit: CP Hospital Course Hospital Course Sergei Lucas is a 52 year old male with a past medical history of dependent type 2 diabetes mellitus, hypertension, hyperlipidemia, obesity, history of gastric banding, chronic chest pain, who presents [facility] for chest pain. He was transiently hypotensive upon admission which resolved with holding his home medications apart from imdur. Overall w/up for chest pain remained unremarkable: Troponin series with baseline trop 16, 15 at 2 hrs, 14 at 6 hrs. EKG without any acute ST-T wave changes. Overall not concerning for ACS.? Recently had an angiogram at [facility] which was without any obstructive CAD.? CTA negative for PE or any infiltrates. Unclear cause of chest pain overnight, may be related to esophageal spasm versus coronary vasospasm.?Increased Imdur to 60mg daily, BP tolerated this change. Patient will likely need an endoscopy.? Review of prior records show that patient was supposed to have an endoscopy with bariatric surgeon Dr. Franklin and likely revision of the Lap-Band due to his ongoing dysphagia over the past year, however this did not come to fruitation. ? Patient is currently scheduled to meet with gastric surgeon in [place] in December 2022.? Currently we do not have bariatric surgery or minimally invasive bariatric capability available at our center.? Since his dysphagia has been ongoing for at least a year this is not currently an acute issue, but does need to be addressed as outpatient. Discussed with educational sign language interpreter surgeron Dr. Alvares that lap band revision will not be able to be perfromed at [facility]. Patient did not have any aspiration or choking episodes during course of his admission here. he has not had any recurrence of chest pain. He is being discharged in stable condition. Physical Exam Narrative: General: No acute distress, AO x3 HEENT: PERRLA, pupils bilaterally equal and reactive, pallors not present Chest: Normal vesicular breath sounds, no added sounds, equal good air entry bilaterally CVS: S1-S2 regular, no murmurs, no tachycardia, no gallops, no rubs Abdomen: Soft, nontender, no organomegaly, bowel sounds present Neuro: No focal deficits, no facial deformity, AO x3, power 5/5 in all limbs Discharge Data Studies Completed and Pending Completed Studies During Hospitalization Category Date Time Status CTA chest [CT angio chest PE protcl [id number]] Stat Cat Scan 10/31/22 00:49 Completed XR chest 1V portable [id number] Stat Exams 10/31/22 00:34 Completed CV. echo wo/w contrast [id number] Routine Ultrasound 10/31/22 07:55 Completed Pending at discharge Category Date Time Status CXRP [XR chest 1V portable [id number]] Routine Exams 11/01/22 14:02 Ordered Blood Cultures ([facility]) Routine Lab 10/31/22 09:09 Received Lamotrigine (Lamictal) Level Routine Lab 10/31/22 09:09 Received Sputum Culture and Gram Stain Stat Lab 10/31/22 05:28 Uncollected Radiology Impressions Chest CTA 10/31/22 00:49 IMPRESSION: No pulmonary embolism. Laboratory Results WBC 14.5 10^3/uL (4.0-10.0) H 10/31/22 00:50 RBC 4.25 10^6/uL (4.1-5.3) 10/31/22 00:50 Hgb 12.1 g/dL (11.7-16.6) 10/31/22 00:50 Hct 38.3 % (42.0-52.0) L 10/31/22 00:50 MCV 90.1 fl (80-94) 10/31/22 00:50 MCH 28.5 pg (28.0-34.0) 10/31/22 00:50 MCHC 31.6 g/dL (30.0-36.0) 10/31/22 00:50 RDW 15.2 % (12.1-15.1) H 10/31/22 00:50 Plt Count 274 10^3/cmm (130-400) 10/31/22 00:50 MPV 9.8 fL (7.4-10.4) 10/31/22 00:50 Neut % (Auto) 71.7 % 10/31/22 00:50 Lymph % (Auto) 20.2 % 10/31/22 00:50 [place] % (Auto) 5.6 % 10/31/22 00:50 Eos % (Auto) 1.2 % 10/31/22 00:50 Baso % (Auto) 0.7 % 10/31/22 00:50 Neut # (Auto) 10.43 10^3/uL (1.8-7.7) H 10/31/22 00:50 Lymph # (Auto) 2.9 10^3/uL (0.8-4.8) 10/31/22 00:50 [place] # (Auto) 0.8 10^3/uL (0.2-0.9) 10/31/22 00:50 Eos # (Auto) 0.2 10^3/uL (0.0-0.8) 10/31/22 00:50 Baso # (Auto) 0.1 10^3/uL (0.0-0.1) 10/31/22 00:50 Nucleated RBC % (auto) 0 % 10/31/22 00:50 Nucleated RBCs # 0.0 /100WBC 10/31/22 00:50 ESR 20 mm/hr (0-10) H 10/31/22 09:09 PT 13.00 SECONDS (12.1-14.9) 10/31/22 00:50 INR 0.95 (0.8-1.2) 10/31/22 00:50 Specimen Type Arterial 10/31/22 01:33 Sample Site Radial, left 10/31/22 01:33 ABG pH 7.36 (7.35-7.45) 10/31/22 01:33 ABG pCO2 50.7 mmHg (35-45) H 10/31/22 01:33 ABG pO2 72.8 mmHg (80.0-100.0) L 10/31/22 01:33 ABG HCO3 28.6 mmol/L (22-26) H 10/31/22 01:33 ABG Base Excess 2.3 mmol/L (-2.0-2.0) H 10/31/22 01:33 Adalberto Test Pos 10/31/22 01:33 Hematocrit 37.3 % (42-52) L 10/31/22 01:33 O2 Delivery Device Nc 10/31/22 01:33 O2 Liters/Min 1.5 % 10/31/22 01:33 Benzene Operator ID [email or web address] 10/31/22 01:33 Sodium 139 mmol/L (136-145) 10/31/22 00:50 Potassium 3.7 mmol/L (3.5-5.1) 10/31/22 00:50 Chloride 98 mmol/L (98-107) 10/31/22 00:50 Carbon Dioxide 28 mmol/L (22-29) 10/31/22 00:50 Anion Gap 16.7 (5-19) 10/31/22 00:50 BUN 20 mg/dL (6-20) 10/31/22 00:50 Creatinine 1.7 mg/dL (0.7-1.2) H 10/31/22 00:50 GFR Calculation 42.5 mL/min (90-130) L 10/31/22 00:50 Glucose 159 mg/dL (65-115) H 10/31/22 00:50 POC Glucose 300 mg/dL (70-110) H 11/01/22 12:32 Estimat Average Glucose 183 10/31/22 09:09 Hemoglobin A1c 8.0 % (4.0-6.0) H 10/31/22 09:09 Calculated Osmolality 294 mOsm/kg (285-295) 10/31/22 00:50 Lactate 2.6 mmol/L (0.5-2.2) H 10/31/22 00:50 Calcium 8.5 mg/dL (8.5-10.5) 10/31/22 00:50 Total Bilirubin 0.3 mg/dL (0.15-1.2) 10/31/22 00:50 AST 18 U/L (0-40) 10/31/22 00:50 ALT 16 U/L (0-41) 10/31/22 00:50 Alkaline Phosphatase 76 U/L (40-130) 10/31/22 00:50 Creatine Kinase 138 U/L (39-308) 10/31/22 09:09 Troponin T Baseline 16 ng/L (0-15) H 10/31/22 00:50 Troponin T 120 Minute 15.52 ng/L (0-15) H 10/31/22 02:41 Delta Troponin T -0.48 ABS# (0-10) L 10/31/22 02:41 Troponin T Hi Sens 6Hr 14.83 ng/L (0-15) 10/31/22 07:12 Troponin T Hi Sens 6Hr Delta -1.17 ng/L (0-12) L 10/31/22 07:12 C-Reactive Protein 24.2 mg/L (0.0-4.9) H 10/31/22 00:50 NT-Pro-B Natriuret Pep 39 pg/mL (0-125) 10/31/22 00:50 NT-Pro-B Natriuret Pep 40 pg/mL (0-125) 10/31/22 00:50 Total Protein 6.2 g/dL (6.6-8.7) L 10/31/22 00:50 Albumin 3.5 g/dL (3.5-5.2) 10/31/22 00:50 Globulin 2.7 g/dL (1.3-4.6) 10/31/22 00:50 Triglycerides 324 mg/dL (0-150) H 10/31/22 09:09 Cholesterol 172 mg/dL (0-200) 10/31/22 09:09 LDL Cholesterol, Calc 74 mg/dL (50-129) 10/31/22 09:09 HDL Cholesterol 33 mg/dL (60-100) L 10/31/22 09:09 LDL/HDL Ratio 2.24 RATIO (0.00-3.22) 10/31/22 09:09 Cholesterol/HDL Ratio 5.21 mg/dL (1.0-5.00) H 10/31/22 09:09 Lipase 39 U/L (13-60) 10/31/22 00:50 Procalcitonin 0.08 ng/mL (0-0.5) 10/31/22 00:50 TSH 1.94 uIU/mL (0.27-4.20) 10/31/22 09:09 Urine Color Yellow (Yellow) 10/31/22 02:40 Urine Appearance Clear (CLEAR) 10/31/22 02:40 Urine pH 6 (5-7) 10/31/22 02:40 Ur Specific [place] 1.000 (1.005-1.030) L 10/31/22 02:40 Urine Protein Neg (Negative) 10/31/22 02:40 Urine Glucose (UA) Norm (Normal) 10/31/22 02:40 Urine Ketones Negative (Negative) 10/31/22 02:40 Urine Blood Neg (Negative) 10/31/22 02:40 Urine Nitrate Negative (Negative) 10/31/22 02:40 Urine Bilirubin Neg (Negative) 10/31/22 02:40 Urine Urobilinogen Norm mg/dL (Negative) 10/31/22 02:40 Ur Leukocyte Esterase Negative (Negative) 10/31/22 02:40 Nasal Influ A H1 2009 PCR Not detected (NOT DETECT) 10/31/22 08:30 Adenovirus (PCR) Not detected (NOT DETECT) 10/31/22 08:30 C. pneumoniae DNA (PCR) Not detected (NOT DETECT) 10/31/22 08:30 Coronavirus 229E (PCR) Not detected (NOT DETECT) 10/31/22 08:30 Human Metapneumovir PCR Not detected (NOT DETECT) 10/31/22 08:30 Influenza A (H1) PCR Not detected (NOT DETECT) 10/31/22 08:30 Influenza A (H3) PCR Not detected (NOT DETECT) 10/31/22 08:30 Influenza Type A (PCR) Not detected (NOT DETECT) 10/31/22 08:30 Influenza Type B (PCR) Not detected (NOT DETECT) 10/31/22 08:30 M. pneumoniae (PCR) Not detected (NOT DETECT) 10/31/22 08:30 Parainfluenza 1 (PCR) Not detected (NOT DETECT) 10/31/22 08:30 Parainfluenza 2 (PCR) Not detected (NOT DETECT) 10/31/22 08:30 Parainfluenza 3 (PCR) Not detected (NOT DETECT) 10/31/22 08:30 Parainfluenza 4 (PCR) Not detected (NOT DETECT) 10/31/22 08:30 RSV Type A (PCR) Not detected (NOT DETECT) 10/31/22 08:30 RSV Type B (PCR) Not detected (NOT DETECT) 10/31/22 08:30 Entero/Rhino (PCR) Not detected (NOT DETECT) 10/31/22 08:30 SARS-CoV-2 (PCR) Not detected (NOT DETECT) 10/31/22 08:30 Vitals Last Vital Signs Temp 99.0 F 11/01/22 04:00 Pulse 72 11/01/22 10:00 Resp 15 11/01/22 03:00 BP 155/77 11/01/22 10:00 Pulse Ox 93 11/01/22 10:00 O2 Del Method Nasal Cannula 11/01/22 08:12 O2 Flow Rate 2 11/01/22 08:12 Discharge Plan Discharge Patient Disposition: Home Condition: Stable Prescriptions: New hydrocodone-acetaminophen 5-325 mg Tablet 1 tab PO BID PRN (Reason: SEVERE pain) Qty: 0 0RF Continued pregabalin [Lyrica] 200 mg capsule 200 mg PO Q12H metformin 500 mg tablet extended release 24 hr 500 mg PO QAM cyclobenzaprine 10 mg tablet 10 mg PO TID PRN (Reason: Muscle Spasm) montelukast 10 mg tablet 10 mg PO DAILY cyanocobalamin (vitamin B-12) 1,000 mcg/mL solution 1,000 mcg IM Q30D (DME) Diabetic shoes with 3 inserts See Rx Instructions .Route .MEDSUPPLY Qty: 1 0RF Rx Instructions: As directed by [facility] Lamictal 200 mg tablet 200 mg PO DAILY@1000 Qty: 90 0RF trazodone 300 mg tablet 300 mg PO BEDTIME Qty: 90 0RF prazosin 5 mg capsule 5 mg PO BEDTIME Qty: 90 0RF citalopram [Celexa] 40 mg tablet 40 mg PO DAILY@1000 Qty: 90 0RF folic acid 1 mg tablet 1 mg PO DAILY pantoprazole [Protonix] 40 mg tablet,delayed release (DR/EC) 40 mg PO DAILY Qty: 30 3RF Humulin 70/30 U-100 Insulin 100 unit/mL (70-30) suspension See Rx Instructions .ROUTE .COMPLEX Rx Instructions: per sliding scale ondansetron HCl 4 mg tablet 4 mg PO Q6H PRN (Reason: nausea and vomiting) Qty: 20 0RF cetirizine [Zyrtec] 10 mg Tablet 10 mg PO DAILY nystatin 100,000 unit/gram cream 1 applic TOPICAL BID diphenhydramine HCl [Benadryl Allergy] 25 mg Tablet 25 mg PO BID PRN (Reason: Allergy Symptoms) nitroglycerin [Nitrostat] 0.4 mg Tablet, Sublingual 0.4 mg SUBLINGUAL Q5M PRN (Reason: Chest Pain) Rx Instructions: do not exceed 3 doses per episode nystatin 100,000 unit/gram powder 1 applic TOPICAL DAILY PRN (Reason: Rash) lorazepam 1 mg tablet 1 mg PO DAILY PRN (Reason: Anxiety) albuterol sulfate 90 mcg/actuation HFA aerosol inhaler 2 puff INHALATION Q6H PRN (Reason: Shortness Of Breath) rizatriptan 5 mg tablet,disintegrating 5 mg PO . DIRECTED MDD 30MG PRN (Reason: Migraine Headache) fluticasone propionate 50 mcg/actuation spray,suspension 2 spray INTRANASAL DAILY PRN (Reason: Allergy Symptoms) oxymetazoline [Nasal Edwards (oxymetazoline)] 0.05 % Edwards,Non-Aerosol 2 spray INTRANASAL Q12H PRN (Reason: Nasal Congestion) Linzess 145 mcg capsule 145 mcg PO DAILY PRN (Reason: Constipation) [facility] Leg Cramps 1 tab PO BID PRN (Reason: LEG CRAMPS) lactulose 10 gram/15 mL solution 40 g PO DAILY PRN (Reason: constipation) Qty: 473 1RF pregabalin 150 mg capsule 150 mg PO BID hydrocodone-acetaminophen 5-325 mg tablet 1 tab PO Q4H PRN (Reason: Pain) furosemide 40 mg tablet 80 mg PO BID atorvastatin 40 mg tablet 40 mg PO DAILY Wixela Inhub 500-50 mcg/dose blister with device 1 ea inhalation BID spironolactone 50 mg tablet 50 mg PO BID potassium chloride 20 mEq tablet extended release 40 meq PO BID Changed isosorbide mononitrate 30 mg tablet extended release 24 hr 60 mg PO QAM Qty: 30 0RF metoprolol succinate 100 mg tablet extended release 24 hr 50 mg PO DAILY Qty: 30 0RF Held lisinopril-hydrochlorothiazide 20-25 mg tablet 1 tab PO DAILY Hold Instructions: Resume on 11/08/22. Discharge Orders: Discharge Order (Routine); Ordered 11/01/22 Ordered By: Gilda Mayers Referrals: Agustina Whiting DO [Primary Care Provider] - Discharge Diet: Usual diet Discharge Activity: Resume usual activity Patient Instructions: Opioid Safety Discharge Attestations Time Spent in Discharge Care*: greater than 30 min Quality Metrics Clinical Quality Measures [ No reported AMI, CVA or VTE this stay] Coding Level of Care Code Acute Code for Chg Fwd Diagnoses Chest pain R07.9 Hypotension I95.9 Orthostasis I95.1 Dyspnea R06.00 Leukocytosis D72.829 Diabetic peripheral neuropathy associated with type 2 diabetes mellitus E11.42 LAP-BAND surgery status Z98.84 Insulin dependent type 2 diabetes mellitus E11.9; Z79.4 Elevated lactic acid level R79.89
[2022-11-04 13:35] LABS: Lamotrigine (Lamictal) Level 2.3 mcg/mL (2.5-15.0)
== END 2022-11-01 16:00 | disposition home or self-care (01) | DRG 312 ==
LOC: ER 04:12 → ICU 07:02
PROVIDERS: Admitting Provider Family Medicine; Emergency Provider Emergency Medicine; PCP Family Medicine; Visit Provider Student in an Organized Health Care Education/Training Program
DX: I95.1 Orthostatic hypotension (principal); Z68.43 Body mass index [BMI] 50.0-59.9, adult; E87.20 Acidosis, unspecified; N17.9 Acute kidney failure, unspecified; R07.9 Chest pain, unspecified; E11.42 Type 2 diabetes mellitus with diabetic polyneuropathy; I10 Essential (primary) hypertension; E78.5 Hyperlipidemia, unspecified; E66.9 Obesity, unspecified; Z98.84 Bariatric surgery status; Z79.84 Long term (current) use of oral hypoglycemic drugs; Z79.891 Long term (current) use of opiate analgesic; Z79.4 Long term (current) use of insulin; F41.1 Generalized anxiety disorder; F43.12 Post-traumatic stress disorder, chronic; Z98.1 Arthrodesis status; E86.0 Dehydration; G89.29 Other chronic pain
CPT/HCPCS: 36415; 36416; 36600; 71045; 71275; 80053; 80061; 80175; 81003; 82550; 82803; 82962; 83036; 83605; 83690; 83880; 84145; 84443; 84484; 85025; 85610; 85651; 86140; 87040; 87486; 87581; 87633; 92610; 93005; 94664; 94760; 96372; 96374; 96376; 99285; C8929; J1650; J1815; J2405; J7030; J7040; Q9956; Q9967

== ENCOUNTER 2022-11-15 19:53 | Day surgery (SDC) | payer MEDICARE, OTHER, SELFPAY ==
[2022-11-15] VITALS (12 sets, daily range): BP systolic 118–178; BP diastolic 51–140; PULSE 65–154; RESP 18–22; TEMP 36.7–36.8; O2SAT 90–99; BMI 48.6
--- NOTE | 2022-11-15 21:25 | ED_ITS ---
HPI - Abdominal Pain General: Chief Complaint: Airway/Esophagus Foreign Body Stated Complaint: Clogged Esophagus Time Seen by Provider: 11/15/22 21:17 Source: patient Mode of arrival: ambulatory Limitations: no limitations History of Present Illness: This patient comes to our emergency department because of likely a piece of chicken lodged in his distal esophagus. He states that he was eating chicken last night and because of the way he has to position himself to swallow his chicken sometimes a larger piece goes down esophagus which apparently occurred last evening. He states that since that time he has had pressure in his lower chest esophagus similar to that he is experienced in the past. He states he has been vomiting and unable to swallow liquids or secretions well. He has previously had an episode that required endoscopy last fall. He also relates to me that despite his problems over the last 12 to 18 hours he did attempt to take his regular pills earlier today and he feels like he did not get those down either. He denies chest pain shortness of breath fevers chills cough difficulty breathing etc. He has had a prior lap band procedure in 2004. MD elicited complaint: abdominal pain Exacerbating factors: eating Context: history of similar episodes Associated Symptoms: Reports vomiting; Denies chills, dysuria, fever(s), hematemesis and syncope Review of Systems Const: Denies: fever(s) or chills Eyes: Denies: change in vision ENMT: Denies: throat pain, nasal discharge or nasal congestion Card: Denies: palpitations, irregular heart rhythm, edema, syncope or pre- syncope Resp: Denies: dyspnea, productive cough, non-productive cough, wheezing or stridor GI: Reports: abdominal pain, vomiting and dysphagia; Denies: hematemesis : Denies: difficulty urinating or dysuria Musc: Denies: neck pain, back pain, extremity pain or extremity swelling Skin/Breast: Denies: rash Neuro: Denies: headache(s), numbness in extremities or weakness in extremities PFSH ED PFSH: Medical History Chest pain Encounter for long-term use of opiate analgesic Generalized anxiety disorder Insomnia Lumbar back pain Opioid contract exists Post-traumatic stress disorder, chronic Psychiatric care Surgical History History of colonoscopy History of elbow surgery History of lumbar fusion History of neck surgery 3x LAP-BAND surgery status Family History Other CAD (coronary artery disease) Cancer Diabetes Hypertension Psychiatric illness Social History Smoking and tobacco status: never smoked Alcohol intake: never Substance/Drug Use: never Physical Exam Narrative: EXAM NARRATIVE: Be holdThe patient is able to speak in relatively normal voice although he tends to his secretions in his mouth which can muscles his voice somewhat. He appears to be in no acute distress. Const: COMMON NORMALS: patient oriented x3 and alert GENERAL APPEARANCE: cooperative NUTRITIONAL APPEARANCE: overweight HENMT: COMMON NORMALS: normocephalic, Normal nasal mucous membranes and turbinates present, moist oral mucous membranes and oropharynx normal HEAD & SCALP: normocephalic NOSE: Normal nasal mucous membranes and turbinates present Eye: COMMON NORMALS: Equal, round and reactive pupils present, EOMs intact bilaterally and conjunctivae normal CONJUNCTIVA: Yes conjunctivae normal PUPIL: Yes Equal, round and reactive pupils present Neck/C-Spine: COMMON NORMALS: full ROM, no lymphadenopathy, supple, Thyroid normal and No carotid bruits THYROID: Thyroid normal Chest: COMMONS NORMALS: normal inspection of the chest and normal palpation of entire chest wall Resp: COMMON NORMALS: normal respiratory effort, No use of accessory muscles and clear to auscultation bilaterally EFFORT & INSPECTION: Yes able to speak in complete sentences AUSCULTATION: clear to auscultation bilaterally Cardio: COMMON NORMALS: regular rate, regular rhythm, No murmurs present (Cardio) and Peripheral pulses 2+ throughout RATE: regular rate RHYTHM: regular rhythm PERIPHERAL PULSES: Peripheral pulses 2+ throughout GI: INSPECTION: Yes normal to inspection and Yes central obesity PALPATION: Yes Tenderness to palpation present (GI) (Mild tenderness in the epigastrium but no rebound or guarding.) Back/Pelvis: COMMON NORMALS: thoracic and lumbar spine normal to inspection, no thoracic nor lumbar tenderness and thoraco-lumbar ROM normal Extremity: COMMON NORMALS: normal to inspection, full ROM, no calf tenderness and no pedal edema Neuro: COMMON NORMALS: patient oriented x3, moves all extremities, no focal motor deficits and no sensory deficits noted SENSORIUM/ORIENTATION: Yes alert Psych: COMMON NORMALS: mental status grossly normal Skin: COMMON NORMALS: no rashes or lesions noted, no wounds and turgor normal GENERAL SKIN EXAM: no rashes or lesions noted and turgor normal Course Reevaluation(s): Reevaluation #1: Patient remained stable pending transfer to the GI lab for endoscopy Time: 22:16 Consultations: Consultation #1: Spoke with the on-call attending surgeon who will come and evaluate the patient for endoscopy. Time: 21:32 Vital Signs: Vital signs: Vital Signs Temperature 98.2 F 11/15/22 20:07 Pulse Rate 68 11/15/22 20:15 Respiratory Rate 20 H 11/15/22 20:15 Blood Pressure 148/51 11/15/22 20:15 Pulse Oximetry 99 11/15/22 20:15 Oxygen Delivery Me thod Room Air 11/15/22 20:07 MDM - Abdominal Pain Medical Decision Making Patient presented to our emergency department with a history of such strongly suggestive of food bolus impaction in the distal esophagus. Patient had a history of prior similar occurrence and this episode occurred while eating chicken. He has not been unable to swallow secretions and has vomited multiple times since the occurrence last evening. Patient's clinical examination revealed him to have no evidence of respiratory distress. Did have mild epigastric tenderness to palpation but no other concerning findings on clinical examination. His presentation strongly suggest food bolus impaction. General surgery for endoscopy coverage was consulted who will evaluate the patient. Medical Records I reviewed the patient's medical records. Lab Data I reviewed the patient's lab results. 11/15/22 21:17 11/15/22 21:17 Labs/Radiology: Laboratory Results WBC 12.1 10^3/uL (4.0-10.0) H 11/15/22 21:17 RBC 4.11 10^6/uL (4.1-5.3) 11/15/22 21:17 Hgb 11.8 g/dL (11.7-16.6) 11/15/22 21:17 Hct 36.6 % (42.0-52.0) L 11/15/22 21:17 MCV 89.1 fl (80-94) 11/15/22 21:17 MCH 28.7 pg (28.0-34.0) 11/15/22 21:17 MCHC 32.2 g/dL (30.0-36.0) 11/15/22 21:17 RDW 15.8 % (12.1-15.1) H 11/15/22 21:17 Plt Count 245 10^3/cmm (130-400) 11/15/22 21:17 MPV 10.6 fL (7.4-10.4) H 11/15/22 21:17 Neut % (Auto) 76.3 % 11/15/22 21:17 Lymph % (Auto) 17.3 % 11/15/22 21:17 [place] % (Auto) 4.4 % 11/15/22 21:17 Eos % (Auto) 0.9 % 11/15/22 21:17 Baso % (Auto) 0.5 % 11/15/22 21:17 Neut # (Auto) 9.20 10^3/uL (1.8-7.7) H 11/15/22 21:17 Lymph # (Auto) 2.1 10^3/uL (0.8-4.8) 11/15/22 21:17 [place] # (Auto) 0.5 10^3/uL (0.2-0.9) 11/15/22 21:17 Eos # (Auto) 0.1 10^3/uL (0.0-0.8) 11/15/22 21:17 Baso # (Auto) 0.1 10^3/uL (0.0-0.1) 11/15/22 21:17 Nucleated RBC % (auto) 0 % 11/15/22 21:17 Nucleated RBCs # 0.0 /100WBC 11/15/22 21:17 Sodium 138 mmol/L (136-145) 11/15/22 21:17 Potassium 4.3 mmol/L (3.5-5.1) 11/15/22 21:17 Chloride 98 mmol/L (98-107) 11/15/22 21:17 Anion Gap 14.3 (5-19) 11/15/22 21:17 Calcium 9.4 mg/dL (8.5-10.5) 11/15/22 21:17 Discharge Plan Discharge Patient Disposition: Placed in Observation Clinical Impression: Obstruction of distal esophagus due to foreign body Condition: Stable Coding Level of Care Code ED 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
[2022-11-15] MEDS: lactated ringers 1,000 ML 125 ML IV (21:46)
[2022-11-15 21:57] LABS: Basophils # 0.1 10^3/uL (0.0-0.1); Basophils % 0.5 %; Eosinophils # 0.1 10^3/uL (0.0-0.8); Eosinophils % 0.9 %; Hematocrit 36.6 % (42.0-52.0); Hemoglobin 11.8 g/dL (11.7-16.6); Lymphocytes # 2.1 10^3/uL (0.8-4.8); Lymphocytes % 17.3 %; Mean Corpuscular HGB Conc 32.2 g/dL (30.0-36.0); Mean Corpuscular Hemoglobin 28.7 pg (28.0-34.0); Mean Corpuscular Volume 89.1 fl (80-94); Mean Platelet Volume 10.6 fL (7.4-10.4); Monocytes # 0.5 10^3/uL (0.2-0.9); Monocytes % 4.4 %; Neutrophils % 76.3 %; Nucleated Red Blood Cells % 0 %; Platelet Count 245 10^3/cmm (130-400); Red Blood Count 4.11 10^6/uL (4.1-5.3); Red Cell Distribution Width 15.8 % (12.1-15.1); White Blood Count 12.1 10^3/uL (4.0-10.0)
--- NOTE | 2022-11-15 22:04 | P.ANESASSM_ITS ---
Pre-Anesthetic Assessment Height/Weight: Height 1.73 m Weight 145.15 kg Temp Pulse Resp BP Pulse Ox O2 Del Method 98.2 F 68 20 H 148/51 99 Room Air 11/15/22 20:07 11/15/22 20:15 11/15/22 20:15 11/15/22 20:15 11/15/22 20:15 11/15/22 20:07 Preop Diagnosis: None Operation Date: 11/15/22 22:00 Proposed Procedures p EGD(Not Applicable) - Georgi Macario MD Familial anesthetic complications: None Was Beta Mercedes taken within 24 hours: N/A Was Clonidine taken within 24 hours: N/A Social No alcohol and No tobacco Airway Submandibular: within normal limits Cervical ROM: within normal limits Mallampati: Class III Dentition: full History/ROS No significant history except as noted and No significant complaints Pulmonary Asthma, Exertional Dyspnea and Sleep Apnea Dysphagia History of trach CV/HEM Coronary Artery Disease, Congestive Heart Failure and Hypertension CONCLUSIONS ?Normal left ventricular size and systolic function, EF 55 %. No ?regional wall motion abnormalities. ?Thickened aortic valve.? Mild aortic valve stenosis, mean ?gradient 7.5 mmHg, DELVIS 1.8 cm squared.? Peak velocity of 2.02 m/s with ?a peak gradient of 16 and a mean gradient of 8 mmHg. ?Possibly normal RV size and ejection fraction. ?There is no pericardial effusion. ?Technically difficult study because of the poor ultrasonic ?window and patient's body habitus ? (Echo contrast - Optison was used to delineate the endocardium ?and to estimate the? LV ejection fraction) None reported Hepatic None reported GI Gastroesophageal Reflux Disease Metabolic Diabetes Mellitus, Hyperlipidemia and Morbid Obesity [facility] [place] Lower Back Pain and Osteoarthritis/DJD Neuropsych Anxiety Anesthetic Plan ASA status: 3E Anesthesia: Anesthesia Evaluation and General Risk of > 500 ml blood loss (7ml/kg in children): No Medications/Allergies Home Medications Medication Instructions Recorded Confirmed Last Taken Type pregabalin 200 mg capsule (Lyrica) 200 mg PO Q12H 09/15/19 10/31/22 10/30/22 History insulin human U-100 NPH-regulr See Rx Instructions .Route .COMPLEX 06/20/20 10/31/22 06/20/20 History 70-30 mix 100 unit/mL subcutaneous susp (Humulin 70/30 U-100 Insulin) cyanocobalamin (vitamin B-12) 1,000 mcg IM Q30D 07/24/21 10/31/22 Unknown History 1,000 mcg/mL injection solution cyclobenzaprine 10 mg tablet 10 mg PO TID PRN Muscle Spasm 07/24/21 10/31/22 Unknown History metformin 500 mg tablet,extended 500 mg PO QAM 07/24/21 10/31/22 10/30/22 History release 24 hr montelukast 10 mg tablet 10 mg PO DAILY 07/24/21 10/31/22 10/30/22 History folic acid 1 mg tablet 1 mg PO DAILY 03/21/22 10/31/22 Unknown History Diabetic shoes with 3 inserts #1 ea 04/24/22 10/31/22 Unknown Rx Hylands Leg Cramps 1 tab PO BID PRN LEG CRAMPS 05/01/22 10/31/22 Unknown History albuterol sulfate 90 mcg/actuation 2 puff inhalation Q6H PRN 05/01/22 10/31/22 Unknown History aerosol inhaler Shortness Of Breath cetirizine 10 mg tablet (Zyrtec) 10 mg PO DAILY 05/01/22 10/31/22 10/30/22 History diphenhydramine HCl 25 mg tablet 25 mg PO BID PRN Allergy Symptoms 05/01/22 10/31/22 Unknown History (Benadryl Allergy) fluticasone propionate 50 2 spray intranasal DAILY PRN 05/01/22 10/31/22 Unknown History mcg/actuation nasal Allergy Symptoms spray,suspension lactulose 10 gram/15 mL oral 40 g (60 mL) PO DAILY PRN 05/01/22 10/31/22 Unknown Rx solution constipation #473 mL linaclotide 145 mcg capsule 145 mcg PO DAILY PRN Constipation 05/01/22 10/31/22 Unknown History (Linzess) lorazepam 1 mg tablet 1 mg PO DAILY PRN Anxiety 05/01/22 10/31/22 Unknown History nitroglycerin 0.4 mg sublingual 0.4 mg sublingual Q5M PRN Chest 05/01/22 10/31/22 Unknown History tablet (Nitrostat) Pain nystatin 100,000 unit/gram topical 1 applic topical BID 05/01/22 10/31/22 Unknown History cream nystatin 100,000 unit/gram topical 1 applic topical DAILY PRN Rash 05/01/22 10/31/22 Unknown History powder oxymetazoline 0.05 % nasal spray 2 spray intranasal Q12H PRN Nasal 05/01/22 10/31/22 Unknown History (Nasal Addison (oxymetazoline)) Congestion pregabalin 150 mg capsule 150 mg PO BID 05/01/22 10/31/22 10/30/22 History rizatriptan 5 mg disintegrating 5 mg PO . DIRECTED PRN Migraine 05/01/22 10/31/22 Unknown History tablet Headache pantoprazole 40 mg tablet,delayed 40 mg PO DAILY #30 tabs 05/07/22 10/31/22 10/30/22 Rx release (Protonix) citalopram 40 mg tablet (Celexa) 40 mg PO DAILY@1000 #90 tabs 09/28/22 10/31/22 10/30/22 Rx lamotrigine 200 mg tablet 200 mg PO DAILY@1000 #90 tabs 09/28/22 10/31/22 10/30/22 Rx (Lamictal) prazosin 5 mg capsule 5 mg PO BEDTIME #90 caps 09/28/22 10/31/22 10/30/22 Rx trazodone 300 mg tablet 300 mg PO BEDTIME #90 tabs 09/28/22 10/31/22 10/30/22 Rx ondansetron HCl 4 mg tablet 4 mg PO Q6H PRN nausea and 10/13/22 10/31/22 Unknown Rx vomiting #20 tabs atorvastatin 40 mg tablet 40 mg PO DAILY 10/31/22 10/31/22 Unknown History fluticasone 500 mcg-salmeterol 50 1 ea inhalation BID 10/31/22 10/31/22 10/30/22 History mcg/dose blistr powdr for inhalation (Wixela Inhub) furosemide 40 mg tablet 80 mg PO BID 10/31/22 10/31/22 Unknown History hydrocodone 5 mg-acetaminophen 325 1 tab PO Q4H PRN Pain 10/31/22 10/31/22 Unknown History mg tablet lisinopril 20 1 tab PO DAILY 10/31/22 10/31/22 10/30/22 History mg-hydrochlorothiazide 25 mg tablet potassium chloride 20 mEq 40 meq PO BID 10/31/22 10/31/22 10/31/22 History tablet,extended release spironolactone 50 mg tablet 50 mg PO BID 10/31/22 10/31/22 10/30/22 History hydrocodone 5 mg-acetaminophen 325 1 tab PO BID PRN SEVERE pain #0 11/01/22 Unknown Rx mg tablet tabs isosorbide mononitrate 30 mg 60 mg PO QAM #30 tabs 11/01/22 10/31/22 10/31/22 Rx tablet,extended release 24 hr metoprolol succinate 100 mg 50 mg PO DAILY #30 tabs 11/01/22 10/31/22 10/30/22 Rx tablet,extended release 24 hr Allergies Allergy/AdvReac Type Severity Reaction Status Date / Time promethazine [From Phenergan] Allergy Unknown HARD TO Verified 10/31/22 00:47 BREATH Current Medications Generic Name Dose Route Start Last Admin Trade Name Freq PRN Reason Stop Dose Admin Lactated Ringer's 1,000 mls @ 125 mls/hr 11/15/22 21:45 11/15/22 21:46 Lactated Ringers IV 125 mls/hr .Q8H GAYLE Administration PFSH Anesthesia Medical History Chest pain Encounter for long-term use of opiate analgesic Generalized anxiety disorder Insomnia Lumbar back pain Opioid contract exists Post-traumatic stress disorder, chronic Psychiatric care Surgical History History of colonoscopy History of elbow surgery History of lumbar fusion History of neck surgery 3x LAP-BAND surgery status Family History Other CAD (coronary artery disease) Cancer Diabetes Hypertension Psychiatric illness Social History Smoking and tobacco status: never smoked Alcohol intake: never Substance/Drug Use: never Data Anesthesia 11/15/22 21:17 11/15/22 21:17 Short CBC 11/15/22 Range/Units 21:17 WBC 12.1 H (4.0-10.0) 10^3/uL Hgb 11.8 (11.7-16.6) g/dL Hct 36.6 L (42.0-52.0) % MCV 89.1 (80-94) fl Plt Count 245 (130-400) 10^3/cmm Neut % (Auto) 76.3 % Neut # (Auto) 9.20 H (1.8-7.7) 10^3/uL Cardiac Studies: Echocardiogram 10/31/22 Sestamibi Stress Test (Cardiology) 05/01
[2022-11-15 22:11] LABS: Anion Gap 14.3 (5-19); Blood Urea Nitrogen 27 mg/dL (6-20); Calcium 9.4 mg/dL (8.5-10.5); Carbon Dioxide 30 mmol/L (22-29); Chloride 98 mmol/L (98-107); Glomerular Filtration Rate 49.1 mL/min (90-130); Glucose 208 mg/dL (65-115); Osmolality Calculated 297 mOsm/kg (285-295); Potassium 4.3 mmol/L (3.5-5.1); Sodium 138 mmol/L (136-145)
--- NOTE | 2022-11-15 22:45 | P.HP_ITS ---
Providers/Chief Complaint Admitting Physician: Georgi Macario MD Primary Care Provider: Agustina Whiting DO Chief Complaint: Clogged Esophagus History of Present Illness Sergei Lucas is a 52 year old male with history of eating chicken 24 hours ago, and this became lodged. He denies difficulty with secretions, but c/o pressure in epigastrium. He presented to ER and is now taken to GI lab for endoscopy Review of Systems Narrative: History of lap band, chest abscess, and temporary tracheostomy. ENMT: Denies: hoarseness, dental pain, ear discharge or nasal discharge Card: Denies: chest pain, irregular heart rhythm or lightheadedness Resp: Denies: dyspnea or productive cough GI: Reports: dysphagia and early satiety : Denies: flank pain, difficulty urinating or dysuria Musc: Denies: neck pain or extremity pain Skin/Breast: Denies: rash or pruritus Neuro: Denies: headache(s), numbness in extremities or weakness in extremities Psych: Denies: anxiety or depression Endo: Denies: polyuria, polydipsia or tired all the time Sukumar/Lymph: Denies: easy bruising All/Imm: Denies: urticaria Medications/Allergies Home Medications Medication Instructions Recorded Confirmed Last Taken Type pregabalin 200 mg capsule (Lyrica) 200 mg PO Q12H 09/15/19 10/31/22 10/30/22 History insulin human U-100 NPH-regulr See Rx Instructions .Route .COMPLEX 06/20/20 10/31/22 06/20/20 History 70-30 mix 100 unit/mL subcutaneous susp (Humulin 70/30 U-100 Insulin) cyanocobalamin (vitamin B-12) 1,000 mcg IM Q30D 07/24/21 10/31/22 Unknown History 1,000 mcg/mL injection solution cyclobenzaprine 10 mg tablet 10 mg PO TID PRN Muscle Spasm 07/24/21 10/31/22 Unknown History metformin 500 mg tablet,extended 500 mg PO QAM 07/24/21 10/31/22 10/30/22 History release 24 hr montelukast 10 mg tablet 10 mg PO DAILY 07/24/21 10/31/22 10/30/22 History folic acid 1 mg tablet 1 mg PO DAILY 03/21/22 10/31/22 Unknown History Diabetic shoes with 3 inserts #1 ea 04/24/22 10/31/22 Unknown Rx Hylands Leg Cramps 1 tab PO BID PRN LEG CRAMPS 05/01/22 10/31/22 Unknown History albuterol sulfate 90 mcg/actuation 2 puff inhalation Q6H PRN 05/01/22 10/31/22 Unknown History aerosol inhaler Shortness Of Breath cetirizine 10 mg tablet (Zyrtec) 10 mg PO DAILY 05/01/22 10/31/22 10/30/22 History diphenhydramine HCl 25 mg tablet 25 mg PO BID PRN Allergy Symptoms 05/01/22 10/31/22 Unknown History (Benadryl Allergy) fluticasone propionate 50 2 spray intranasal DAILY PRN 05/01/22 10/31/22 Unknown History mcg/actuation nasal Allergy Symptoms spray,suspension lactulose 10 gram/15 mL oral 40 g (60 mL) PO DAILY PRN 05/01/22 10/31/22 Unknown Rx solution constipation #473 mL linaclotide 145 mcg capsule 145 mcg PO DAILY PRN Constipation 05/01/22 10/31/22 Unknown History (Linzess) lorazepam 1 mg tablet 1 mg PO DAILY PRN Anxiety 05/01/22 10/31/22 Unknown History nitroglycerin 0.4 mg sublingual 0.4 mg sublingual Q5M PRN Chest 05/01/22 10/31/22 Unknown History tablet (Nitrostat) Pain nystatin 100,000 unit/gram topical 1 applic topical BID 05/01/22 10/31/22 Unknown History cream nystatin 100,000 unit/gram topical 1 applic topical DAILY PRN Rash 05/01/22 10/31/22 Unknown History powder oxymetazoline 0.05 % nasal spray 2 spray intranasal Q12H PRN Nasal 05/01/22 10/31/22 Unknown History (Nasal Stowell (oxymetazoline)) Congestion pregabalin 150 mg capsule 150 mg PO BID 05/01/22 10/31/22 10/30/22 History rizatriptan 5 mg disintegrating 5 mg PO . DIRECTED PRN Migraine 05/01/22 10/31/22 Unknown History tablet Headache pantoprazole 40 mg tablet,delayed 40 mg PO DAILY #30 tabs 05/07/22 10/31/22 10/30/22 Rx release (Protonix) citalopram 40 mg tablet (Celexa) 40 mg PO DAILY@1000 #90 tabs 09/28/22 10/31/22 10/30/22 Rx lamotrigine 200 mg tablet 200 mg PO DAILY@1000 #90 tabs 09/28/22 10/31/22 10/30/22 Rx (Lamictal) prazosin 5 mg capsule 5 mg PO BEDTIME #90 caps 09/28/22 10/31/22 10/30/22 Rx trazodone 300 mg tablet 300 mg PO BEDTIME #90 tabs 09/28/22 10/31/22 10/30/22 Rx ondansetron HCl 4 mg tablet 4 mg PO Q6H PRN nausea and 10/13/22 10/31/22 Unknown Rx vomiting #20 tabs atorvastatin 40 mg tablet 40 mg PO DAILY 10/31/22 10/31/22 Unknown History fluticasone 500 mcg-salmeterol 50 1 ea inhalation BID 10/31/22 10/31/22 10/30/22 History mcg/dose blistr powdr for inhalation (Wixela Inhub) furosemide 40 mg tablet 80 mg PO BID 10/31/22 10/31/22 Unknown History hydrocodone 5 mg-acetaminophen 325 1 tab PO Q4H PRN Pain 10/31/22 10/31/22 Unknown History mg tablet lisinopril 20 1 tab PO DAILY 10/31/22 10/31/22 10/30/22 History mg-hydrochlorothiazide 25 mg tablet potassium chloride 20 mEq 40 meq PO BID 10/31/22 10/31/22 10/31/22 History tablet,extended release spironolactone 50 mg tablet 50 mg PO BID 10/31/22 10/31/22 10/30/22 History hydrocodone 5 mg-acetaminophen 325 1 tab PO BID PRN SEVERE pain #0 11/01/22 Unknown Rx mg tablet tabs isosorbide mononitrate 30 mg 60 mg PO QAM #30 tabs 11/01/22 10/31/22 10/31/22 Rx tablet,extended release 24 hr metoprolol succinate 100 mg 50 mg PO DAILY #30 tabs 11/01/22 10/31/22 10/30/22 Rx tablet,extended release 24 hr Allergies Allergy/AdvReac Type Severity Reaction Status Date / Time promethazine [From Phenergan] Allergy Unknown HARD TO Verified 10/31/22 00:47 BREATH PFSH Acute PFSH: Medical History Chest pain Encounter for long-term use of opiate analgesic Generalized anxiety disorder Insomnia Lumbar back pain Opioid contract exists Post-traumatic stress disorder, chronic Psychiatric care Surgical History History of colonoscopy History of elbow surgery History of lumbar fusion History of neck surgery 3x LAP-BAND surgery status Family History Other CAD (coronary artery disease) Cancer Diabetes Hypertension Psychiatric illness Social History Smoking and tobacco status: never smoked Alcohol intake: never Substance/Drug Use: never Vitals/I&O/Wt Last Vital Signs Temp 98.2 F 11/15/22 20:07 Pulse 66 11/15/22 22:31 Resp 18 11/15/22 22:31 BP 118/55 11/15/22 22:31 Pulse Ox 96 11/15/22 22:31 O2 Del Method Room Air 11/15/22 22:09 Weight last 48 hrs Weight 320 lb Physical Exam Narrative: WDWN male in NAD Const: COMMON NORMALS: no acute distress, average body habitus and patient oriented x3 HENMT: COMMON NORMALS: normocephalic and hearing grossly normal bilaterally Eye: COMMON NORMALS: Equal, round and reactive pupils present, EOMs intact bilaterally and no scleral icterus Neck/C-Spine: COMMON NORMALS: full ROM and supple Chest: COMMONS NORMALS: normal inspection of the chest Resp: COMMON NORMALS: normal respiratory effort and clear to auscultation bilaterally Cardio: COMMON NORMALS: no JVD, regular rate and regular rhythm GI: COMMON NORMALS: Soft to palpation and non-tender OTHER: Lapband port palpable : COMMON NORMALS: Yes no CVA tenderness and Yes normal external exam Back/Pelvis: COMMON NORMALS: no CVA tenderness Extremity: COMMON NORMALS: normal to inspection and full ROM Neuro: COMMON NORMALS: patient oriented x3, CN's II-XII intact bilaterally, moves all extremities, no focal motor deficits and no sensory deficits noted Psych: COMMON NORMALS: mental status grossly normal and cooperative Skin: COMMON NORMALS: no rashes or lesions noted, no wounds and no jaundice Data 11/15/22 21:17 11/15/22 21:17 A&P Assessment and plan (1) Obstruction of distal esophagus due to foreign body: Plan Meat bolus in esophagus with history of lapBand Plan: urgent EGD on 11/15/22 Attestations Medical Necessity Statement*: Patient has retained food bolus Time Spent in Patient Care: Greater than 35 minutes Coding Level of Care Code Acute Code for Chg Fwd Diagnoses Obstruction of distal esophagus due to foreign body T18.108A Time Spent (min) 25
--- NOTE | 2022-11-15 22:49 | PM.PACU ---
PACU note Exam: awake and vital signs stable
--- NOTE | 2022-11-15 23:20 | P.OP_ITS ---
Brief Operative Note Date of procedure: 11/15/22 Pre-op diagnosis: Foreign body in esophagus Procedure Done: Esophagogastroduodenoscopy Surgeon: Georgi Macario Estimated blood loss (mL): 5 Complications: None Post-op Plan: Full liquid diet for 24 hours Condition: stable Disposition: PACU Coding Level of Care Code Acute Code for [facility]
--- NOTE | 2022-11-15 23:27 | PM.OP ---
Operative Report Date of procedure: November 15, 2022 Pre-op diagnosis: Preop Diagnosis None Foreign body in esophagus Post-op diagnosis: Normal esophagus Post-op findings: Normal gastric band with no retained food bolus Procedure done: EGD with clotest Pathology: Clotest Surgeon: Georgi Macario Estimated blood loss (mL): 5 IV fluids (mL): 300 Complications: None Findings: No retained esophageal foreign body. Scope advanced without difficulty to duodenal bulb. Clotest obtained from gastric antrum. Brief History: 24 hour history of pressure in chest following ingestion of chicken bolus Procedure: Patient assessed prior to induction of anesthesia and felt stable. Under satisfactory GA and airway control, gastroscope inserted under direct visualization through esophagus and stomach into duodenal bulb. No retained food bolus, no obstruction or stricture, no ulcers. Biopsy of antrum for h. pylori obtained.
[2022-11-16 00:02] VITALS: BP 144/64; PULSE 92; RESP 18; TEMP 36.3; O2SAT 93
[2022-11-16 00:15] VITALS: BP 130/72; PULSE 97; RESP 18; O2SAT 92
[2022-11-16 00:26] VITALS: BP 142/67; PULSE 87; RESP 18; O2SAT 93
[2022-11-18 12:14] LABS: H. Pylori / CLO Test Negative
== END 2022-11-15 22:02 | disposition home or self-care (01) ==
LOC: ER 22:02 → GILAB 22:03
PROVIDERS: Emergency Provider Emergency Medicine; PCP Family Medicine; Visit Provider Surgery
PROC: 0DJ08ZZ Inspection of Upper Intestinal Tract, Via Natural or Artificial Opening Endoscopic (ICD-10-PCS; CPT 43235; principal; 2022-11-15 22:00)
DX: T18.128A Food in esophagus causing other injury, initial encounter (principal); X58.XXXA Exposure to other specified factors, initial encounter; J45.909 Unspecified asthma, uncomplicated; G47.30 Sleep apnea, unspecified; I25.10 Atherosclerotic heart disease of native coronary artery without angina pectoris; I11.0 Hypertensive heart disease with heart failure; I50.9 Heart failure, unspecified; K21.9 Gastro-esophageal reflux disease without esophagitis; E78.5 Hyperlipidemia, unspecified; E66.01 Morbid (severe) obesity due to excess calories; Z68.42 Body mass index [BMI] 45.0-49.9, adult; Z79.84 Long term (current) use of oral hypoglycemic drugs; Z79.4 Long term (current) use of insulin; Z79.891 Long term (current) use of opiate analgesic; Z98.84 Bariatric surgery status
CPT/HCPCS: 43239; 80048; 85025; 87077; J0330; J2704; J7120

== ENCOUNTER 2023-01-16 14:49 | Emergency (ER) | payer MEDICARE, OTHER, SELFPAY ==
[2023-01-16 14:50] VITALS: BP 160/84; PULSE 93; RESP 17; TEMP 37; O2SAT 94; BMI 47.9
--- NOTE | 2023-01-16 14:50 | US_ITS ---
WS: [id number] RIGHT UPPER QUADRANT ULTRASOUND HISTORY: ruq pain COMPARISON: 09/16/2008 Liver: 19.2 cm in length. Enlarged liver with coarse echotexture. The entire liver is not well visual ized. Mass or intrahepatic dilatation would be difficult to exclude. Portal Vein: Not well seen. Gallbladder: Normally distended. No stones identified. Very difficult evaluation of the gallbladder. No wall thickening. CBD: 0.4 cm Pancreas: Completely obscured by bowel gas. Right kidney: 11.9 cm in length. Normal size and echogenicity. No hydronephrosis or mass. Aorta and IVC: Very limited. No ascites. US/US gall bladder [id number] IMPRESSION: 1. Very limited evaluation of the RIGHT upper quadrant due to patient's body h abitus. 2. Gallbladder is normally distended. No stones or pericholecystic fluid ident ified. Would be difficult to visualize small stones and sludge. 3. No bile duct dilatation is evident. 4. Limited visualization of the liver. There is hepatic enlargement and hepati c steatosis.
[2023-01-16 15:08] LABS: Basophils # 0.1 10^3/uL (0.0-0.1); Basophils % 0.4 %; Eosinophils # 0.1 10^3/uL (0.0-0.8); Eosinophils % 0.6 %; Hematocrit 35.2 % (42.0-52.0); Hemoglobin 11.2 g/dL (11.7-16.6); Lymphocytes # 1.7 10^3/uL (0.8-4.8); Lymphocytes % 13.6 %; Mean Corpuscular HGB Conc 31.8 g/dL (30.0-36.0); Mean Corpuscular Hemoglobin 29.6 pg (28.0-34.0); Mean Corpuscular Volume 93.1 fl (80-94); Mean Platelet Volume 10.4 fL (7.4-10.4); Monocytes # 0.3 10^3/uL (0.2-0.9); Monocytes % 2.3 %; Neutrophils # 10.23 10^3/uL (1.8-7.7); Neutrophils % 82.6 %; Nucleated Red Blood Cells % 0 %; Platelet Count 265 10^3/cmm (130-400); Red Blood Count 3.78 10^6/uL (4.1-5.3); Red Cell Distribution Width 15.3 % (12.1-15.1); White Blood Count 12.4 10^3/uL (4.0-10.0)
--- NOTE | 2023-01-16 15:19 | W.ED.ABDPA2 ---
HPI - Abdominal Pain General: Chief Complaint: Abdominal Pain Stated Complaint: abd pain, thinks it's his gallbladder Time Seen by Provider: 01/16/23 14:58 Source: patient Mode of arrival: ambulatory Limitations: no limitations History of Present Illness: 52-year-old male he states has been having right upper quadrant abdominal pain with vomiting over the last 2 weeks. He states the pain is been sharp in nature rates it a 5 out of 10 currently he denies any worsening improving factors. Denies any chest pain. Associated Symptoms: Reports nausea and vomiting; Denies chills, diarrhea, dysuria and fever(s) Review of Systems Const: Denies: fever(s), chills, body aches or change in appetite Eyes: Denies: blurry vision or eye discomfort ENMT: Denies: throat pain or dental pain Card: Denies: chest pain Resp: Denies: dyspnea GI: Reports: abdominal pain, nausea and vomiting; Denies: diarrhea : Denies: dysuria Musc: Denies: neck pain or back pain Skin/Breast: Denies: rash Neuro: Denies: headache(s) PFSH ED PFSH: Medical History Chest pain Encounter for long-term use of opiate analgesic Generalized anxiety disorder Insomnia Lumbar back pain Opioid contract exists Post-traumatic stress disorder, chronic Psychiatric care Surgical History History of colonoscopy History of elbow surgery History of lumbar fusion History of neck surgery 3x LAP-BAND surgery status Family History Other CAD (coronary artery disease) Cancer Diabetes Hypertension Psychiatric illness Social History Smoking and tobacco status: never smoked Alcohol intake: never Substance/Drug Use: never Physical Exam Const: COMMON NORMALS: no acute distress, patient oriented x3 and healthy appearing HENMT: COMMON NORMALS: normocephalic and atraumatic HEAD & SCALP: normocephalic and atraumatic Neck/C-Spine: COMMON NORMALS: full ROM and supple Chest: COMMONS NORMALS: normal inspection of the chest and normal palpation of entire chest wall Resp: COMMON NORMALS: normal respiratory effort, No retractions, No use of accessory muscles and clear to auscultation bilaterally AUSCULTATION: clear to auscultation bilaterally Cardio: COMMON NORMALS: regular rate, regular rhythm and No murmurs present (Cardio) RATE: regular rate RHYTHM: regular rhythm GI: COMMON NORMALS: Normal to inspection, nondistended, normoactive bowel sounds present, Soft to palpation and no masses PALPATION: Yes Soft to palpation OTHER: ruq tenderness Extremity: COMMON NORMALS: normal to inspection and full ROM Neuro: COMMON NORMALS: patient oriented x3, moves all extremities and no focal motor deficits Psych: COMMON NORMALS: mental status grossly normal, Normal thought process present and cooperative THOUGHT PROCESS: Normal thought process present Skin: COMMON NORMALS: no rashes or lesions noted and no wounds GENERAL SKIN EXAM: no rashes or lesions noted Course Vital Signs: Vital signs: Vital Signs Temperature 98.6 F 01/16/23 14:50 Pulse Rate 60 01/16/23 16:07 Respiratory Rate 16 01/16/23 15:34 Blood Pressure 144/90 01/16/23 16:07 Pulse Oximetry 90 01/16/23 16:07 Oxygen Delivery Me thod Room Air 01/16/23 15:27 MDM - Abdominal Pain Medical Decision Making Patient presents with abdominal pain along with vomiting he feels much improved here blood work and ultrasound here are normal he has no signs of acute surgical abdomen we will start him on Zofran he is to follow-up with surgery and return if worsening. Medical Records I reviewed the patient's medical records. Lab Data I reviewed the patient's lab results. 01/16/23 15:02 01/16/23 15:02 Labs/Radiology: Radiology Impressions Gallbladder Ultrasound 01/16/23 14:50 IMPRESSION: 1. Very limited evaluation of the RIGHT upper quadrant due to patient's body habitus. 2. Gallbladder is normally distended. No stones or pericholecystic fluid identified. Would be difficult to visualize small stones and sludge. 3. No bile duct dilatation is evident. 4. Limited visualization of the liver. There is hepatic enlargement and hepatic steatosis. Laboratory Results WBC 12.4 10^3/uL (4.0-10.0) H 01/16/23 15:02 RBC 3.78 10^6/uL (4.1-5.3) L 01/16/23 15:02 Hgb 11.2 g/dL (11.7-16.6) L 01/16/23 15:02 Hct 35.2 % (42.0-52.0) L 01/16/23 15:02 MCV 93.1 fl (80-94) 01/16/23 15:02 MCH 29.6 pg (28.0-34.0) 01/16/23 15:02 MCHC 31.8 g/dL (30.0-36.0) 01/16/23 15:02 RDW 15.3 % (12.1-15.1) H 01/16/23 15:02 Plt Count 265 10^3/cmm (130-400) 01/16/23 15:02 MPV 10.4 fL (7.4-10.4) 01/16/23 15:02 Neut % (Auto) 82.6 % 01/16/23 15:02 Lymph % (Auto) 13.6 % 01/16/23 15:02 [place] % (Auto) 2.3 % 01/16/23 15:02 Eos % (Auto) 0.6 % 01/16/23 15:02 Baso % (Auto) 0.4 % 01/16/23 15:02 Neut # (Auto) 10.23 10^3/uL (1.8-7.7) H 01/16/23 15:02 Lymph # (Auto) 1.7 10^3/uL (0.8-4.8) 01/16/23 15:02 [place] # (Auto) 0.3 10^3/uL (0.2-0.9) 01/16/23 15:02 Eos # (Auto) 0.1 10^3/uL (0.0-0.8) 01/16/23 15:02 Baso # (Auto) 0.1 10^3/uL (0.0-0.1) 01/16/23 15:02 Nucleated RBC % (auto) 0 % 01/16/23 15:02 Nucleated RBCs # 0.0 /100WBC 01/16/23 15:02 Sodium 137 mmol/L (136-145) 01/16/23 15:02 Potassium 4.5 mmol/L (3.5-5.1) 01/16/23 15:02 Chloride 98 mmol/L (98-107) 01/16/23 15:02 Carbon Dioxide 27 mmol/L (22-29) 01/16/23 15:02 Anion Gap 16.5 (5-19) 01/16/23 15:02 BUN 18 mg/dL (6-20) 01/16/23 15:02 Creatinine 1.4 mg/dL (0.7-1.2) H 01/16/23 15:02 GFR Calculation 53.2 mL/min (90-130) L 01/16/23 15:02 Glucose 273 mg/dL (65-115) H 01/16/23 15:02 Calculated Osmolality 296 mOsm/kg (285-295) H 01/16/23 15:02 Calcium 9.1 mg/dL (8.5-10.5) 01/16/23 15:02 Total Bilirubin 0.5 mg/dL (0.15-1.2) 01/16/23 15:02 AST 13 U/L (0-40) 01/16/23 15:02 ALT 9 U/L (0-41) 01/16/23 15:02 Alkaline Phosphatase 92 U/L (40-130) 01/16/23 15:02 Total Protein 7.0 g/dL (6.6-8.7) 01/16/23 15:02 Albumin 3.8 g/dL (3.5-5.2) 01/16/23 15:02 Globulin 3.2 g/dL (1.3-4.6) 01/16/23 15:02 Lipase 25 U/L (13-60) 01/16/23 15:02 Discharge Plan Discharge Patient Disposition: Home Clinical Impression: Abdominal pain, Vomiting Condition: Stable Prescriptions: New Protonix 40 mg tablet,delayed release (DR/EC) 40 mg PO DAILY Qty: 60 0RF ondansetron 4 mg tablet,disintegrating 4 mg PO Q6H PRN (Reason: nausea and vomiting) Qty: 14 0RF No Action pregabalin [Lyrica] 200 mg capsule 200 mg PO Q12H metformin 500 mg tablet extended release 24 hr 500 mg PO QAM cyclobenzaprine 10 mg tablet 10 mg PO TID PRN (Reason: Muscle Spasm) montelukast 10 mg tablet 10 mg PO DAILY cyanocobalamin (vitamin B-12) 1,000 mcg/mL solution 1,000 mcg IM Q30D (DME) Diabetic shoes with 3 inserts See Rx Instructions .Route .MEDSUPPLY Qty: 1 0RF Rx Instructions: As directed by [facility] trazodone 300 mg tablet 300 mg PO BEDTIME Qty: 90 0RF Lamictal 200 mg tablet 200 mg PO DAILY@1000 Qty: 90 0RF citalopram [Celexa] 40 mg tablet 40 mg PO DAILY@1000 Qty: 90 0RF folic acid 1 mg tablet 1 mg PO DAILY pantoprazole [Protonix] 40 mg tablet,delayed release (DR/EC) 40 mg PO DAILY Qty: 30 3RF prazosin 5 mg capsule 5 mg PO DAILY Qty: 90 0RF prazosin 2 mg capsule 2 mg PO .HS Qty: 90 0RF Humulin 70/30 U-100 Insulin 100 unit/mL (70-30) suspension See Rx Instructions .ROUTE .COMPLEX Rx Instructions: per sliding scale ondansetron HCl 4 mg tablet 4 mg PO Q6H PRN (Reason: nausea and vomiting) Qty: 20 0RF Sore Throat (phenol) 1.4 % Aerosol,[place] 3 spray mucous membrane Q2H PRN (Reason: Sore Throat) 0RF cetirizine [Zyrtec] 10 mg Tablet 10 mg PO DAILY nystatin 100,000 unit/gram cream 1 applic TOPICAL BID diphenhydramine HCl [Benadryl Allergy] 25 mg Tablet 25 mg PO BID PRN (Reason: Allergy Symptoms) nitroglycerin [Nitrostat] 0.4 mg Tablet, Sublingual 0.4 mg SUBLINGUAL Q5M PRN (Reason: Chest Pain) Rx Instructions: do not exceed 3 doses per episode nystatin 100,000 unit/gram powder 1 applic TOPICAL DAILY PRN (Reason: Rash) lorazepam 1 mg tablet 1 mg PO DAILY PRN (Reason: Anxiety) albuterol sulfate 90 mcg/actuation HFA aerosol inhaler 2 puff INHALATION Q6H PRN (Reason: Shortness Of Breath) rizatriptan 5 mg tablet,disintegrating 5 mg PO . DIRECTED MDD 30MG PRN (Reason: Migraine Headache) fluticasone propionate 50 mcg/actuation spray,suspension 2 spray INTRANASAL DAILY PRN (Reason: Allergy Symptoms) oxymetazoline [Nasal [place] (oxymetazoline)] 0.05 % [place],Non-Aerosol 2 spray INTRANASAL Q12H PRN (Reason: Nasal Congestion) Linzess 145 mcg capsule 145 mcg PO DAILY PRN (Reason: Constipation) [place] Leg Cramps 1 tab PO BID PRN (Reason: LEG CRAMPS) lactulose 10 gram/15 mL solution 40 g PO DAILY PRN (Reason: constipation) Qty: 473 1RF pregabalin 150 mg capsule 150 mg PO BID hydrocodone-acetaminophen 5-325 mg tablet 1 tab PO Q4H PRN (Reason: Pain) lisinopril-hydrochlorothiazide 20-25 mg tablet 1 tab PO DAILY Hold Instructions: Resume on 11/08/22. furosemide 40 mg tablet 80 mg PO BID atorvastatin 40 mg tablet 40 mg PO DAILY fluticasone propion-salmeterol [Wixela Inhub] 500-50 mcg/dose blister with device 1 ea inhalation BID spironolactone 50 mg tablet 50 mg PO BID potassium chloride 20 mEq tablet extended release 40 meq PO BID hydrocodone-acetaminophen 5-325 mg Tablet 1 tab PO BID PRN (Reason: SEVERE pain) Qty: 0 0RF isosorbide mononitrate 30 mg tablet extended release 24 hr 60 mg PO QAM Qty: 30 0RF metoprolol succinate 100 mg tablet extended release 24 hr 50 mg PO DAILY Qty: 30 0RF Discharge Orders: Discharge ED (Routine); Ordered 01/16/23 Ordered By: Jamie Caban Referrals: Weston Alvares DO [Physician] - 1-3 days Agustina Whiting DO [Primary Care Provider] - Discharge Diet: Advance as tolerated Discharge Activity: Resume usual activity Patient Instructions: Abdominal Pain (ED) Coding Level of Care Code ED [employer] Estate Marketing Coordinator for Carito Arreguin
[2023-01-16 15:27] VITALS: PULSE 62; O2SAT 93
[2023-01-16 15:32] LABS: Alanine Aminotransferase 9 U/L (0-41); Albumin Level 3.8 g/dL (3.5-5.2); Alkaline Phosphatase 92 U/L (40-130); Anion Gap 16.5 (5-19); Aspartate Amino Transferase 13 U/L (0-40); Blood Urea Nitrogen 18 mg/dL (6-20); Calcium 9.1 mg/dL (8.5-10.5); Carbon Dioxide 27 mmol/L (22-29); Chloride 98 mmol/L (98-107); Globulin 3.2 g/dL (1.3-4.6); Glomerular Filtration Rate 53.2 mL/min (90-130); Glucose 273 mg/dL (65-115); Lipase 25 U/L (13-60); Osmolality Calculated 296 mOsm/kg (285-295); Potassium 4.5 mmol/L (3.5-5.1); Sodium 137 mmol/L (136-145); Total Bilirubin 0.5 mg/dL (0.15-1.2)
[2023-01-16 15:34] VITALS: RESP 16; O2SAT 97
[2023-01-16] MEDS: ondansetron 2 mg/ML SDV 2 mL 4 MG IVP (15:34)
[2023-01-16] MEDS: morphine 4 mg/mL SDV 1 mL IVP (15:34)
[2023-01-16 16:07] VITALS: BP 144/90; PULSE 60; O2SAT 90
--- NOTE | 2023-01-17 07:44 | DCPLANNER ---
Addendum entered by Lis Gallardo 01/30/23 12:47: concert or lecture hall manager received the following message from the front office staff at general surgery: left message 01/23 mailing letter due to no contact On 01/21/23 @ 10:23 Matt Byrd Wrote To General Surgery Front Off left message 01/21 On 01/18/23 @ 11:27 Vijaya Andrade Wrote To General Surgery Front Off Left Message Dr. Elkins Original Note: concert or lecture hall manager had message to schedule a follow up appointment for patient with general surgery. concert or lecture hall manager sent patients information to the front office staff at general surgery. Patients information will be printed and reviewed. Clinic will call patient with appointment information.
== END 2023-01-16 16:08 | disposition home or self-care (01) ==
PROVIDERS: Emergency Provider Emergency Medicine; PCP Family Medicine
DX: R10.11 Right upper quadrant pain (principal); R11.11 Vomiting without nausea; Z79.4 Long term (current) use of insulin; Z79.84 Long term (current) use of oral hypoglycemic drugs
CPT/HCPCS: 36415; 76705; 80053; 83690; 85025; 96374; 96375; 99284; J2270; J2405

== ENCOUNTER 2023-02-15 18:41 | Emergency (ER) | payer MEDICARE, OTHER, SELFPAY ==
[2023-02-15 18:51] VITALS: BP 198/80; PULSE 81; RESP 18; TEMP 38.3; O2SAT 95; BMI 48.2
--- NOTE | 2023-02-15 18:58 | XRR_ITS ---
PROCEDURE INFORMATION: Exam: XR Chest Exam date and time: 02/15/2023 7:11 PM Age: 52 years old Clinical indication: Cough TECHNIQUE: Imaging protocol: Radiologic exam of the chest. Views: 1 view. COMPARISON: CR (CHEST, ) 11/01/2022 1:06 PM FINDINGS: Lungs: Unremarkable. No consolidation. Pleural spaces: Unremarkable. No pleural effusion. No pneumothorax. Heart/Mediastinum: Unremarkable. No cardiomegaly. Bones/joints: Unremarkable. XR/XR chest 1V portable [id number] IMPRESSION: No acute findings.
--- NOTE | 2023-02-15 19:08 | W.ED.URI ---
HPI - URI/Sore Throat General: Chief Complaint: Upper Respiratory Infection Stated Complaint: coughing blood Time Seen by Provider: 02/15/23 19:02 Source: patient Mode of arrival: ambulatory Limitations: no limitations History of Present Illness: 52-year-old male states that over the last 3 to 4 days he has had cough he had some hemoptysis states he is only had some mild shortness of breath no severe shortness of breath he states he became concerned with the hemoptysis. He denies fevers at home but is febrile here. He denies any chest pain at this time. He is in no distress here. Associated symptoms: Reports chest pain and fever(s); Deny abdominal pain, chills, diarrhea, headache(s), nausea or vomiting Review of Systems Const: Reports: fever(s); Denies: chills, body aches or change in appetite Eyes: Denies: eye discomfort ENMT: Denies: throat pain or dental pain Card: Reports: chest pain Resp: Reports: productive cough; Denies: dyspnea GI: Denies: abdominal pain, nausea, vomiting or diarrhea Musc: Denies: neck pain or back pain Skin/Breast: Denies: rash Neuro: Denies: headache(s) PFSH ED PFSH: Medical History Chest pain Encounter for long-term use of opiate analgesic Generalized anxiety disorder Insomnia Lumbar back pain Opioid contract exists Post-traumatic stress disorder, chronic Psychiatric care Surgical History History of colonoscopy History of elbow surgery History of lumbar fusion History of neck surgery 3x LAP-BAND surgery status Family History Other CAD (coronary artery disease) Cancer Diabetes Hypertension Psychiatric illness Social History Smoking and tobacco status: never smoked Alcohol intake: never Substance/Drug Use: never Physical Exam Const: COMMON NORMALS: no acute distress, patient oriented x3 and healthy appearing HENMT: COMMON NORMALS: normocephalic and atraumatic HEAD & SCALP: normocephalic and atraumatic Neck/C-Spine: COMMON NORMALS: full ROM and supple Chest: COMMONS NORMALS: normal inspection of the chest OTHER: point tender in center of chest Resp: COMMON NORMALS: normal respiratory effort, No retractions, No use of accessory muscles and clear to auscultation bilaterally AUSCULTATION: clear to auscultation bilaterally Cardio: COMMON NORMALS: regular rate, regular rhythm and No murmurs present (Cardio) RATE: regular rate RHYTHM: regular rhythm GI: COMMON NORMALS: Normal to inspection, nondistended, normoactive bowel sounds present, Soft to palpation, non-tender and no masses PALPATION: Yes Soft to palpation Extremity: COMMON NORMALS: normal to inspection and full ROM Neuro: COMMON NORMALS: patient oriented x3, moves all extremities and no focal motor deficits Psych: COMMON NORMALS: mental status grossly normal, Normal thought process present and cooperative THOUGHT PROCESS: Normal thought process present Skin: COMMON NORMALS: no rashes or lesions noted and no wounds GENERAL SKIN EXAM: no rashes or lesions noted Course Vital Signs: Vital signs: Vital Signs Temperature 101.0 F H 02/15/23 18:51 Pulse Rate 67 02/15/23 23:10 Respiratory Rate 18 02/15/23 18:51 Blood Pressure 165/93 02/15/23 23:10 Pulse Oximetry 97 02/15/23 23:10 Oxygen Delivery Me thod Room Air 02/15/23 22:30 MDM - URI/Sore Throat Medical Decision Making Patient presents here with pneumonia I did have him ambulate the halls his oxygen is 97% patient states he would really like to go home he does not sleep well in the hospital I had a long discussion with him I informed him I will place him on oral doxycycline but he does have a pneumonia is evident and if he has any worsening dyspnea or feeling worse he is to return immediately he understands agrees to plan. Medical Records I reviewed the patient's medical records. Lab Data I reviewed the patient's lab results. 02/15/23 19:30 02/15/23 19:30 Radiology Impressions Chest X-Ray 02/15/23 18:58 IMPRESSION: No acute findings. Chest CTA 02/15/23 21:14 IMPRESSION: 1. Multifocal pneumonia 2. No evidence of pulmonary embolism. Laboratory Results WBC 13.8 10^3/uL (4.0-10.0) H 02/15/23 19:30 RBC 3.52 10^6/uL (4.1-5.3) L 02/15/23 19: Hgb 10.7 g/dL (11.7-16.6) L 02/15/23 19: Hct 33.2 % (42.0-52.0) L 02/15/23 19: MCV 94.3 fl (80-94) H 02/15/23 19: MCH 30.4 pg (28.0-34.0) 02/15/23 19: MCHC 32.2 g/dL (30.0-36.0) 02/15/23 19: RDW 15.3 % (12.1-15.1) H 02/15/23: Plt Count 285 10^3/cmm (130-400) 02/15/23: MPV 9.7 fL (7.4-10.4) 02/15/23: Neut % (Auto) 80.2 % 02/15/23: Lymph % (Auto) 14.9 % 02/15/23: [place] % (Auto) 2.8 % 02/15/23: Eos % (Auto) 1.0 % 02/15/23: Baso % (Auto) 0.4 % 02/15/23: Neut # (Auto) 11.10 10^3/uL (1.8-7.7) H 02/15/23: Lymph # (Auto) 2.1 10^3/uL (0.8-4.8) 02/15/23: [place] # (Auto) 0.4 10^3/uL (0.2-0.9) 02/15/23: Eos # (Auto) 0.1 10^3/uL (0.0-0.8) 02/15/23: Baso # (Auto) 0.1 10^3/uL (0.0-0.1) 02/15/23: Nucleated RBC % (auto) 0 % 02/15/23 Nucleated RBCs # 0.0 /100WBC 02/15/23: PT 13.10 SECONDS (12.1-14.9) 02/15/23: INR 0.96 (0.8-1.2) 02/15/23 19:30 D-Dimer 1.36 ug/mIFEU (0-0.59) H 02/15/23 19:30 Sodium 144 mmol/L (136-145) 02/15/23 19:30 Potassium 3.5 mmol/L (3.5-5.1) 02/15/23 19:30 Chloride 104 mmol/L (98-107) 02/15/23 19:30 Carbon Dioxide 27 mmol/L (22-29) 02/15/23 19:30 Anion Gap 16.5 (5-19) 02/15/23 19:30 BUN 16 mg/dL (6-20) 02/15/23 19:30 Creatinine 1.1 mg/dL (0.7-1.2) 02/15/23 19:30 GFR Calculation 70.3 mL/min (90-130) L 02/15/23 19:30 Glucose 67 mg/dL (65-115) 02/15/23 19:30 Calculated Osmolality 297 mOsm/kg (285-295) H 02/15/23 19:30 Lactic Acid 1.0 mmol/L (0.5-2.2) 02/15/23 19:30 Calcium 8.6 mg/dL (8.5-10.5) 02/15/23 19:30 Total Bilirubin 0.5 mg/dL (0.15-1.2) 02/15/23 19:30 AST 14 U/L (0-40) 02/15/23 19:30 ALT 9 U/L (0-41) 02/15/23 19:30 Alkaline Phosphatase 87 U/L (40-130) 02/15/23 19:30 NT-Pro-B Natriuret Pep 401 pg/mL (0-125) H 02/15/23 19:30 Total Protein 6.7 g/dL (6.6-8.7) 02/15/23 19:30 Albumin 3.9 g/dL (3.5-5.2) 02/15/23 19:30 Globulin 2.8 g/dL (1.3-4.6) 02/15/23 19:30 SARS-CoV-2 Ag (Rapid) Negative (Negative) 02/15/23 19:22 EKG Data EKG 1: I personally reviewed and interpreted this EKG as follows: EKG interpretation date: 02/15/23 EKG interpretation time: 19:12 Interpretation: nsr hr [address] or t wave abnormalities qrs 81 tc 395 Discharge Plan Discharge Patient Disposition: Home Clinical Impression: Pneumonia Condition: Stable Prescriptions: New doxycycline hyclate 100 mg tablet 100 mg PO BID 7 Days Qty: 14 0RF No Action pregabalin [Lyrica] 200 mg capsule 200 mg PO Q12H metformin 500 mg tablet extended release 24 hr 500 mg PO QAM cyclobenzaprine 10 mg tablet 10 mg PO TID PRN (Reason: Muscle Spasm) montelukast 10 mg tablet 10 mg PO DAILY cyanocobalamin (vitamin B-12) 1,000 mcg/mL solution 1,000 mcg IM Q30D (DME) Diabetic shoes with 3 inserts See Rx Instructions .Route .MEDSUPPLY Qty: 1 0RF Rx Instructions: As directed by [facility] trazodone 300 mg tablet 300 mg PO BEDTIME Qty: 90 0RF Lamictal 200 mg tablet 200 mg PO DAILY@1000 Qty: 90 0RF citalopram [Celexa] 40 mg tablet 40 mg PO DAILY@1000 Qty: 90 0RF folic acid 1 mg tablet 1 mg PO DAILY pantoprazole [Protonix] 40 mg tablet,delayed release (DR/EC) 40 mg PO DAILY Qty: 30 3RF prazosin 5 mg capsule 5 mg PO DAILY Qty: 90 0RF prazosin 2 mg capsule 2 mg PO .HS Qty: 90 0RF Humulin 70/30 U-100 Insulin 100 unit/mL (70-30) suspension See Rx Instructions .ROUTE .COMPLEX Rx Instructions: per sliding scale ondansetron HCl 4 mg tablet 4 mg PO Q6H PRN (Reason: nausea and vomiting) Qty: 20 0RF Sore Throat (phenol) 1.4 % Aerosol,[place] 3 spray mucous membrane Q2H PRN (Reason: Sore Throat) 0RF cetirizine [Zyrtec] 10 mg Tablet 10 mg PO DAILY nystatin 100,000 unit/gram cream 1 applic TOPICAL BID diphenhydramine HCl [Benadryl Allergy] 25 mg Tablet 25 mg PO BID PRN (Reason: Allergy Symptoms) nitroglycerin [Nitrostat] 0.4 mg Tablet, Sublingual 0.4 mg SUBLINGUAL Q5M PRN (Reason: Chest Pain) Rx Instructions: do not exceed 3 doses per episode nystatin 100,000 unit/gram powder 1 applic TOPICAL DAILY PRN (Reason: Rash) lorazepam 1 mg tablet 1 mg PO DAILY PRN (Reason: Anxiety) albuterol sulfate 90 mcg/actuation HFA aerosol inhaler 2 puff INHALATION Q6H PRN (Reason: Shortness Of Breath) rizatriptan 5 mg tablet,disintegrating 5 mg PO . DIRECTED MDD 30MG PRN (Reason: Migraine Headache) fluticasone propionate 50 mcg/actuation spray,suspension 2 spray INTRANASAL DAILY PRN (Reason: Allergy Symptoms) oxymetazoline [Nasal [place] (oxymetazoline)] 0.05 % [place],Non-Aerosol 2 spray INTRANASAL Q12H PRN (Reason: Nasal Congestion) Linzess 145 mcg capsule 145 mcg PO DAILY PRN (Reason: Constipation) [facility] Leg Cramps 1 tab PO BID PRN (Reason: LEG CRAMPS) lactulose 10 gram/15 mL solution 40 g PO DAILY PRN (Reason: constipation) Qty: 473 1RF pregabalin 150 mg capsule 150 mg PO BID hydrocodone-acetaminophen 5-325 mg tablet 1 tab PO Q4H PRN (Reason: Pain) lisinopril-hydrochlorothiazide 20-25 mg tablet 1 tab PO DAILY Hold Instructions: Resume on 11/08/22. furosemide 40 mg tablet 80 mg PO BID atorvastatin 40 mg tablet 40 mg PO DAILY fluticasone propion-salmeterol [Wixela Inhub] 500-50 mcg/dose blister with device 1 ea inhalation BID spironolactone 50 mg tablet 50 mg PO BID potassium chloride 20 mEq tablet extended release 40 meq PO BID hydrocodone-acetaminophen 5-325 mg Tablet 1 tab PO BID PRN (Reason: SEVERE pain) Qty: 0 0RF isosorbide mononitrate 30 mg tablet extended release 24 hr 60 mg PO QAM Qty: 30 0RF metoprolol succinate 100 mg tablet extended release 24 hr 50 mg PO DAILY Qty: 30 0RF Protonix 40 mg tablet,delayed release (DR/EC) 40 mg PO DAILY Qty: 60 0RF ondansetron 4 mg tablet,disintegrating 4 mg PO Q6H PRN (Reason: nausea and vomiting) Qty: 14 0RF Discharge Orders: Discharge ED (Routine); Ordered 02/15/23 Ordered By: Jamie Caban Referrals: Agustina Whiting DO [Primary Care Provider] - 1-3 days Discharge Diet: Advance as tolerated Discharge Activity: Resume usual activity Patient Instructions: Pneumonia (ED) Coding Level of Care Code ED [employer] Operator for Carito Arreguin
[2023-02-15] MEDS: acetaminophen 325 mg Tablet 650 MG PO (19:22)
[2023-02-15 19:42] LABS: Basophils # 0.1 10^3/uL (0.0-0.1); Basophils % 0.4 %; Eosinophils # 0.1 10^3/uL (0.0-0.8); Hematocrit 33.2 % (42.0-52.0); Hemoglobin 10.7 g/dL (11.7-16.6); Lymphocytes # 2.1 10^3/uL (0.8-4.8); Lymphocytes % 14.9 %; Mean Corpuscular HGB Conc 32.2 g/dL (30.0-36.0); Mean Corpuscular Hemoglobin 30.4 pg (28.0-34.0); Mean Corpuscular Volume 94.3 fl (80-94); Mean Platelet Volume 9.7 fL (7.4-10.4); Monocytes # 0.4 10^3/uL (0.2-0.9); Monocytes % 2.8 %; Neutrophils % 80.2 %; Nucleated Red Blood Cells % 0 %; Platelet Count 285 10^3/cmm (130-400); Red Blood Count 3.52 10^6/uL (4.1-5.3); Red Cell Distribution Width 15.3 % (12.1-15.1); White Blood Count 13.8 10^3/uL (4.0-10.0)
[2023-02-15 19:53] LABS: SARS Covid-2 Antigen Negative (Negative)
[2023-02-15 19:54] LABS: INR 0.96 (0.8-1.2)
[2023-02-15 19:58] LABS: Alanine Aminotransferase 9 U/L (0-41); Albumin Level 3.9 g/dL (3.5-5.2); Alkaline Phosphatase 87 U/L (40-130); Anion Gap 16.5 (5-19); Aspartate Amino Transferase 14 U/L (0-40); Blood Urea Nitrogen 16 mg/dL (6-20); Calcium 8.6 mg/dL (8.5-10.5); Carbon Dioxide 27 mmol/L (22-29); Chloride 104 mmol/L (98-107); Globulin 2.8 g/dL (1.3-4.6); Glomerular Filtration Rate 70.3 mL/min (90-130); Glucose 67 mg/dL (65-115); Osmolality Calculated 297 mOsm/kg (285-295); Potassium 3.5 mmol/L (3.5-5.1); Sodium 144 mmol/L (136-145); Total Bilirubin 0.5 mg/dL (0.15-1.2); Total Protein 6.7 g/dL (6.6-8.7)
[2023-02-15 20:00] VITALS: BP 157/97; PULSE 71; O2SAT 92
[2023-02-15 20:30] LABS: NT Pro B Type Natriuretic Pept 401 pg/mL (0-125)
[2023-02-15 21:00] VITALS: BP 168/90; PULSE 69; O2SAT 93
[2023-02-15 21:11] LABS: D Dimer 1.36 ug/mIFEU (0-0.59)
--- NOTE | 2023-02-15 21:14 | CTR_ITS ---
PROCEDURE INFORMATION: Exam: CTA Chest With Contrast Exam date and time: 02/15/2023 9:54 PM Age: 52 years old Clinical indication: Abnormal findings; Abnormal diagnostic tests; Elevated d-dimer; Cough and shortness of breath; Prior surgery; Surgery date: 6+ months; Surgery type: Cervical fusion. Lap band; Patient HX: Cough with SOB. D dimer of 1.36 TECHNIQUE: Imaging protocol: Computed tomographic angiography of the chest with contrast. Exam focused on the arteries. 3D rendering (Not supervised by radiologist): MIP and/or 3D reconstructed images were created by the technologist. Radiation optimization: All CT scans at this facility use at least one of these dose optimization techniques: automated exposure control; mA and/or kV adjustment per patient size (includes targeted exams where dose is matched to clinical indication); or iterative reconstruction. Contrast material: OMNI 350; Contrast volume: 63 ml; Contrast route: INTRAVENOUS (IV); REPORTING DATA: Count of CT and Cardiac NM exams in prior 12 months: This patient has received 7 known CTs and 0 known cardiac nuclear medicine studies in the 12 months prior to the current study. COMPARISON: CT angio chest PE protcl [id number] 10/31/2022 1:18 AM RADIATION DOSE METRICS: Total DLP (mGy-cm): 488.82 FINDINGS: Tubes, catheters and devices: Lap band device is noted around the gastric cardia in appropriate position. Pulmonary arteries: There is mild scoliosis of the thoracic spine concave to the leftThere is no evidence of filling defects within the pulmonary arterial circulation to suggest pulmonary embolism. Aorta: There is no thoracic aortic aneurysm or dissection. Lungs: There is patchy alveolar infiltrate posterior segment right upper lobe and scattered in the superior segment right lower lobe with some minimal patchy ground-glass infiltrate right lower lobe. There is also patchy alveolar infiltrate in the left lower lobe superior segment and posterior basal segment in keeping with multifocal pneumonia. There are calcified granulomas in both lungs. Pleural spaces: Unremarkable. No pneumothorax. No pleural effusion. Heart: Unremarkable. No cardiomegaly. No pericardial effusion. Lymph nodes: There are mildly prominent mediastinal lymph nodes with prevascular lymph nodes measuring 13 x 17 mm and 12 x 21 mm not significantly changed. There also some mediastinal lymph nodes and left hilar lymph nodes containing calcifications in keeping with old granulomatous disease. Bones/joints: Unremarkable. No acute fracture. Soft tissues: Unremarkable. CT/CT angio chest PE protcl [id number] IMPRESSION: 1. Multifocal pneumonia 2. No evidence of pulmonary embolism.
[2023-02-15 21:30] VITALS: BP 162/83; PULSE 60; O2SAT 99
[2023-02-15] MEDS: iohexol 350 mg/mL 500 mL Btl (per mL) IV (22:02)
[2023-02-15 22:30] VITALS: BP 185/96; PULSE 59; O2SAT 94
[2023-02-15] MEDS: ketorolac 30 mg/mL INJ 15 MG IVP (22:51)
--- NOTE | 2023-02-15 22:57 | PC.NURSE ---
Pt. was 96% on room air when leaving the room. Pt. ambulated to the end of the schwarz and back, maintaining 97% O2 saturation on room air with no assist.
[2023-02-15] MEDS: doxycycline 100 mg Tablet PO (23:03)
[2023-02-15 23:10] VITALS: BP 165/93; PULSE 67; O2SAT 97
== END 2023-02-15 23:12 | disposition home or self-care (01) ==
PROVIDERS: Emergency Provider Emergency Medicine; PCP Family Medicine
DX: J18.9 Pneumonia, unspecified organism (principal); Z20.822 Contact with and (suspected) exposure to COVID-19; Z79.84 Long term (current) use of oral hypoglycemic drugs; Z79.4 Long term (current) use of insulin
CPT/HCPCS: 36415; 71045; 71275; 80053; 83605; 83880; 85025; 85378; 85610; 87426; 96374; 99285; J1885; Q9967

== ENCOUNTER 2023-04-20 19:17 | Emergency (ER) | payer MEDICARE, OTHER, SELFPAY ==
[2023-04-20 19:54] VITALS: BP 163/56; PULSE 62; RESP 20; TEMP 36.9; O2SAT 91; BMI 45.1
--- NOTE | 2023-04-20 19:54 | W.ED.LOWEXIN ---
Documented by User: LUBNA Rick 04/20/23 22:20 HPI - Extremity Injury (Lower) General: Chief Complaint: Abdominal Pain Stated Complaint: left groin pain Time Seen by Provider: 04/20/23 19:32 History of Present Illness: 52-year-old male patient comes in today with left inguinal pain. Pain of his been waxing and waning for about 6 months. Patient reports worsening pain over the last 2 days. Patient denies any fever or blood in the stool. Patient reports no diarrhea or constipation. Patient does have a history of diabetes, hypertension, neuropathy, high cholesterol, migraine headache, CHF and chronic back pain. Review of Systems General: Reports: 10 or more systems reviewed and unremarkable except in HPI and below GI: Reports: abdominal pain PFSH ED PFSH: Medical History Chest pain Encounter for long-term use of opiate analgesic Generalized anxiety disorder Insomnia Lumbar back pain Opioid contract exists Post-traumatic stress disorder, chronic Psychiatric care Surgical History History of colonoscopy History of elbow surgery History of lumbar fusion History of neck surgery 3x LAP-BAND surgery status Family History Other CAD (coronary artery disease) Cancer Diabetes Hypertension Psychiatric illness Social History Smoking and tobacco status: never smoked Alcohol intake: never Substance/Drug Use: never Physical Exam Const: COMMON NORMALS: alert HENMT: COMMON NORMALS: normocephalic HEAD & SCALP: normocephalic Neck/C-Spine: COMMON NORMALS: full ROM Chest: COMMONS NORMALS: normal inspection of the chest Resp: COMMON NORMALS: normal respiratory effort and clear to auscultation bilaterally AUSCULTATION: clear to auscultation bilaterally Cardio: COMMON NORMALS: regular rate and regular rhythm RATE: regular rate RHYTHM: regular rhythm GI: COMMON NORMALS: Soft to palpation AUSCULTATION: Yes normoactive bowel sounds PALPATION: Yes Soft to palpation and Yes Tenderness to palpation present (GI) Details: LLQ : COMMON NORMALS: Yes no CVA tenderness BLADDER/KIDNEY EXAM: Yes no CVA tenderness Back/Pelvis: COMMON NORMALS: no CVA tenderness and thoracic and lumbar spine normal to inspection Extremity: COMMON NORMALS: normal to inspection and no pedal edema Neuro: SENSORIUM/ORIENTATION: Yes alert Skin: COMMON NORMALS: turgor normal GENERAL SKIN EXAM: turgor normal Course Vital Signs: Vital signs: Vital Signs Temperature 98.5 F 04/20/23 19:54 Pulse Rate 68 04/20/23 21:04 Respiratory Rate 20 H 04/20/23 21:04 Blood Pressure 134/45 04/20/23 22:00 Pulse Oximetry 92 04/20/23 22:00 Oxygen Delivery Me thod Room Air 04/20/23 21:04 MDM - Extremity Injury (Lower) Medical Decision Making 52-year-old male patient comes in today with complaints of left lower abdominal pain radiating into the inguinal area. On exam patient's abdomen is tender in the left lower quadrant. No redness or inflammation is noted to the abdominal wall. Bowel sounds are present. Skin is warm and dry. Vital signs are normal. Differential diagnosis includes not limited to renal colic, diverticulitis, constipation, hernia, abscess. Laboratory values were unremarkable. Patient does have some chronic kidney disease that was noted for creatinine 1.3, white count was 13.45. Urinalysis was clean. CT of the abdomen pelvis noted no acute abnormality. Reviewed exam with patient with recommendations for treatment and follow-up. Believe the pain is probably secondary to patient's chronic back pain. Patient was given a hydrocodone tablet to take at home and 1 for in the morning and then he will continue with his routine care for chronic pain. Patient reported understanding of care plan and need for follow-up or return to the ER for worsening symptoms such as fever or blood in vomit or stool. Lab Data 04/20/23 20:11 04/20/23 20:11 Radiology Impressions Abdomen/Pelvis CT 04/20/23 19:58 IMPRESSION: 1. No acute abnormality identified to explain patient's abdomen pain. In particular, there is no evidence bowel obstruction or urolithiasis, and a normal appendix is confirmed. 2. Somewhat horizontal orientation of the LAP band. LAP band balloon appears deflated. Laboratory Results WBC 13.45 10^3/uL (3.29-11.43) H 04/20/23 20:11 RBC 4.22 10^6/uL (3.85-5.65) 04/20/23 20:11 Hgb 12.10 g/dL (11.27-16.99) 04/20/23 20:11 Hct 38.7 % (37-53) 04/20/23 20:11 MCV 91.7 fl (82-101) 04/20/23 20:11 MCH 28.7 pg (27-33) 04/20/23 20:11 MCHC 31.3 g/dL (30-55) 04/20/23 20:11 RDW 14.8 % (12.1-15.1) 04/20/23 20:11 Plt Count 324 10^3/cmm (157-399) 04/20/23 20:11 MPV 10.1 fL (7.4-10.4) 04/20/23 20:11 Neut % (Auto) 73.9 % 04/20/23 20:11 Lymph % (Auto) 20.4 % 04/20/23 20:11 Braxton % (Auto) 3.7 % 04/20/23 20:11 Eos % (Auto) 0.8 % 04/20/23 20:11 Baso % (Auto) 0.7 % 04/20/23 20:11 Neut # (Auto) 9.93 10^3/uL (1.8-7.7) H 04/20/23 20:11 Lymph # (Auto) 2.7 10^3/uL (0.8-4.8) 04/20/23 20:11 Braxton # (Auto) 0.5 10^3/uL (0.2-0.9) 04/20/23 20:11 Eos # (Auto) 0.1 10^3/uL (0.0-0.8) 04/20/23 20:11 Baso # (Auto) 0.1 10^3/uL (0.0-0.1) 04/20/23 20:11 Nucleated RBC % (auto) 0 % 04/20/23 20:11 Nucleated RBCs # 0.0 /100WBC 04/20/23 20:11 Sodium 140 mmol/L (136-145) 04/20/23 20:11 Potassium 4.3 mmol/L (3.5-5.1) 04/20/23 20:11 Chloride 103 mmol/L (98-107) 04/20/23 20:11 Carbon Dioxide 28 mmol/L (22-29) 04/20/23 20:11 Anion Gap 13.3 (5-19) 04/20/23 20:11 BUN 16 mg/dL (6-20) 04/20/23 20:11 Creatinine 1.3 mg/dL (0.7-1.2) H 04/20/23 20:11 GFR Calculation 58.0 mL/min (90-130) L 04/20/23 20:11 Glucose 244 mg/dL (65-115) H 04/20/23 20:11 Calculated Osmolality 299 mOsm/kg (285-295) H 04/20/23 20:11 Calcium 8.7 mg/dL (8.5-10.5) 04/20/23 20:11 Total Bilirubin 0.3 mg/dL (0.15-1.2) 04/20/23 20:11 AST 21 U/L (0-40) 04/20/23 20:11 ALT 11 U/L (0-41) 04/20/23 20:11 Alkaline Phosphatase 113 U/L (40-130) 04/20/23 20:11 Total Protein 6.9 g/dL (6.6-8.7) 04/20/23 20:11 Albumin 3.9 g/dL (3.5-5.2) 04/20/23 20:11 Globulin 3.0 g/dL (1.3-4.6) 04/20/23 20:11 Urine Color Yellow (Yellow) 04/20/23 20:14 Urine Appearance Clear (CLEAR) 04/20/23 20:14 Urine pH 5 (5-7) 04/20/23 20:14 Ur Specific [place] 1.010 (1.005-1.030) 04/20/23 20:14 Urine Protein Trace (Negative) 04/20/23 20:14 Urine Glucose (UA) 4+ (Normal) H 04/20/23 20:14 Urine Ketones Negative (Negative) 04/20/23 20:14 Urine Blood Neg (Negative) 04/20/23 20:14 Urine Nitrate Negative (Negative) 04/20/23 20:14 Urine Bilirubin Neg (Negative) 04/20/23 20:14 Urine Urobilinogen Neg mg/dL (Negative) 04/20/23 20:14 Ur Leukocyte Esterase Negative (Negative) 04/20/23 20:14 Urine RBC None /hpf (0-2) 04/20/23 20:14 Urine WBC None /hpf (0-5) 04/20/23 20:14 Ur Squamous Epith Cells 0-4 /hpf (0-5) H 04/20/23 20:14 Amorphous Sediment Not Reportable 04/20/23 20:14 Urine Bacteria None /hpf (NONE) 04/20/23 20:14 All radiology interpretation(s) finalized by discharge Discharge Plan Discharge Patient Disposition: Home Clinical Impression: Abdominal pain Qualifiers: Abdominal location: left lower quadrant Qualified Code(s): R10.32 - Left lower quadrant pain Condition: Stable Prescriptions: No Action pregabalin [Lyrica] 200 mg capsule 200 mg PO Q12H metformin 500 mg tablet extended release 24 hr 500 mg PO QAM cyclobenzaprine 10 mg tablet 10 mg PO TID PRN (Reason: Muscle Spasm) montelukast 10 mg tablet 10 mg PO DAILY cyanocobalamin (vitamin B-12) 1,000 mcg/mL solution 1,000 mcg IM Q30D (DME) Diabetic shoes with 3 inserts See Rx Instructions .Route .MEDSUPPLY Qty: 1 0RF Rx Instructions: As directed by [facility] folic acid 1 mg tablet 1 mg PO DAILY citalopram [Celexa] 40 mg tablet 40 mg PO DAILY@1000 Qty: 90 0RF Lamictal 200 mg tablet 200 mg PO DAILY@1000 Qty: 90 0RF prazosin 5 mg capsule 5 mg PO DAILY Qty: 90 0RF prazosin 2 mg capsule 2 mg PO .HS Qty: 90 0RF trazodone 300 mg tablet 300 mg PO BEDTIME Qty: 90 0RF Humulin 70/30 U-100 Insulin 100 unit/mL (70-30) suspension See Rx Instructions .ROUTE .COMPLEX Rx Instructions: per sliding scale Sore Throat (phenol) 1.4 % Aerosol,[place] 3 spray mucous membrane Q2H PRN (Reason: Sore Throat) 0RF cetirizine [Zyrtec] 10 mg Tablet 10 mg PO DAILY nystatin 100,000 unit/gram cream 1 applic TOPICAL BID diphenhydramine HCl [Benadryl Allergy] 25 mg Tablet 25 mg PO BID PRN (Reason: Allergy Symptoms) nitroglycerin [Nitrostat] 0.4 mg Tablet, Sublingual 0.4 mg SUBLINGUAL Q5M PRN (Reason: Chest Pain) Rx Instructions: do not exceed 3 doses per episode lorazepam 1 mg tablet 1 mg PO DAILY PRN (Reason: Anxiety) albuterol sulfate 90 mcg/actuation HFA aerosol inhaler 2 puff INHALATION Q6H PRN (Reason: Shortness Of Breath) rizatriptan 5 mg tablet,disintegrating 5 mg PO . DIRECTED MDD 30MG PRN (Reason: Migraine Headache) oxymetazoline [Nasal [place] (oxymetazoline)] 0.05 % [place],Non-Aerosol 2 spray INTRANASAL Q12H PRN (Reason: Nasal Congestion) Linzess 145 mcg capsule 145 mcg PO DAILY PRN (Reason: Constipation) [place] Leg Cramps 1 tab PO BID PRN (Reason: LEG CRAMPS) lactulose 10 gram/15 mL solution 40 g PO DAILY PRN (Reason: constipation) Qty: 473 1RF hydrocodone-acetaminophen 5-325 mg tablet 1 tab PO Q4H PRN (Reason: Pain) lisinopril-hydrochlorothiazide 20-25 mg tablet 1 tab PO DAILY Hold Instructions: Resume on 11/08/22. furosemide 40 mg tablet 80 mg PO BID atorvastatin 40 mg tablet 40 mg PO DAILY fluticasone propion-salmeterol [Wixela Inhub] 500-50 mcg/dose blister with device 1 ea inhalation BID spironolactone 50 mg tablet 50 mg PO BID potassium chloride 20 mEq tablet extended release 40 meq PO BID hydrocodone-acetaminophen 5-325 mg Tablet 1 tab PO BID PRN (Reason: SEVERE pain) Qty: 0 0RF isosorbide mononitrate 30 mg tablet extended release 24 hr 60 mg PO QAM Qty: 30 0RF metoprolol succinate 100 mg tablet extended release 24 hr 50 mg PO DAILY Qty: 30 0RF Protonix 40 mg tablet,delayed release (DR/EC) 40 mg PO DAILY Qty: 60 0RF ondansetron 4 mg tablet,disintegrating 4 mg PO Q6H PRN (Reason: nausea and vomiting) Qty: 14 0RF Discharge Orders: Discharge ED (Routine); Ordered 04/20/23 Ordered By: Ricardo Khalil Referrals: Agustina Whiting DO [Primary Care Provider] - Discharge Diet: Usual diet Patient Instructions: Abdominal Pain (ED), Opioid Safety, Pain Management Activity Restrictions/Additional Instructions: Follow-up with primary care as needed for further evaluation and treatment. Increase activity as tolerated. Return to ER for worsening symptoms such as fever greater than 100.4, blood in vomit or stool, or new concerns. 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 [employer] Documented by User: Remy Dillon DO 04/20/23 22:57 HPI - Extremity Injury (Lower) General: Chief Complaint: Abdominal Pain Stated Complaint: left groin pain Time Seen by Provider: 04/20/23 19:32 PFSH ED PFSH: Medical History Chest pain Encounter for long-term use of opiate analgesic Generalized anxiety disorder Insomnia Lumbar back pain Opioid contract exists Post-traumatic stress disorder, chronic Psychiatric care Surgical History History of colonoscopy History of elbow surgery History of lumbar fusion History of neck surgery 3x LAP-BAND surgery status Family History Other CAD (coronary artery disease) Cancer Diabetes Hypertension Psychiatric illness Social History Smoking and tobacco status: never smoked Alcohol intake: never Substance/Drug Use: never Course Vital Signs: Vital signs: Vital Signs Temperature 98.5 F 04/20/23 19:54 Pulse Rate 68 04/20/23 21:04 Respiratory Rate 20 H 04/20/23 21:04 Blood Pressure 134/45 04/20/23 22:00 Pulse Oximetry 92 04/20/23 22:00 Oxygen Delivery Me thod Room Air 04/20/23 21:04 MDM - Extremity Injury (Lower) Medical Decision Making 52-year-old male patient comes in today with complaints of left lower abdominal pain radiating into the inguinal area. On exam patient's abdomen is tender in the left lower quadrant. No redness or inflammation is noted to the abdominal wall. Bowel sounds are present. Skin is warm and dry. Vital signs are normal. Differential diagnosis includes not limited to renal colic, diverticulitis, constipation, hernia, abscess. Laboratory values were unremarkable. Patient does have some chronic kidney disease that was noted for creatinine 1.3, white count was 13.45. Urinalysis was clean. CT of the abdomen pelvis noted no acute abnormality. Reviewed exam with patient with recommendations for treatment and follow-up. Believe the pain is probably secondary to patient's chronic back pain. Patient was given a hydrocodone tablet to take at home and 1 for in the morning and then he will continue with his routine care for chronic pain. Patient reported understanding of care plan and need for follow-up or return to the ER for worsening symptoms such as fever or blood in vomit or stool. This patient was originally seen by LUBNA Robert.? I agree with his history, evaluation, and treatment. Lab Data 04/20/23 20:11 04/20/23 20:11 Radiology Impressions Abdomen/Pelvis CT 04/20/23 19:58 IMPRESSION: 1. No acute abnormality identified to explain patient's abdomen pain. In particular, there is no evidence bowel obstruction or urolithiasis, and a normal appendix is confirmed. 2. Somewhat horizontal orientation of the LAP band. LAP band balloon appears deflated. Laboratory Results WBC 13.45 10^3/uL (3.29-11.43) H 04/20/23 20:11 RBC 4.22 10^6/uL (3.85-5.65) 04/20/23 20:11 Hgb 12.10 g/dL (11.27-16.99) 04/20/23 20:11 Hct 38.7 % (37-53) 04/20/23 20:11 MCV 91.7 fl (82-101) 04/20/23 20:11 MCH 28.7 pg (27-33) 04/20/23 20:11 MCHC 31.3 g/dL (30-55) 04/20/23 20:11 RDW 14.8 % (12.1-15.1) 04/20/23 20:11 Plt Count 324 10^3/cmm (157-399) 04/20/23 20:11 MPV 10.1 fL (7.4-10.4) 04/20/23 20:11 Neut % (Auto) 73.9 % 04/20/23 20:11 Lymph % (Auto) 20.4 % 04/20/23 20:11 Braxton % (Auto) 3.7 % 04/20/23 20:11 Eos % (Auto) 0.8 % 04/20/23 20:11 Baso % (Auto) 0.7 % 04/20/23 20:11 Neut # (Auto) 9.93 10^3/uL (1.8-7.7) H 04/20/23 20:11 Lymph # (Auto) 2.7 10^3/uL (0.8-4.8) 04/20/23 20:11 Braxton # (Auto) 0.5 10^3/uL (0.2-0.9) 04/20/23 20:11 Eos # (Auto) 0.1 10^3/uL (0.0-0.8) 04/20/23 20:11 Baso # (Auto) 0.1 10^3/uL (0.0-0.1) 04/20/23 20:11 Nucleated RBC % (auto) 0 % 04/20/23 20:11 Nucleated RBCs # 0.0 /100WBC 04/20/23 20:11 Sodium 140 mmol/L (136-145) 04/20/23 20:11 Potassium 4.3 mmol/L (3.5-5.1) 04/20/23 20:11 Chloride 103 mmol/L (98-107) 04/20/23 20:11 Carbon Dioxide 28 mmol/L (22-29) 04/20/23 20:11 Anion Gap 13.3 (5-19) 04/20/23 20:11 BUN 16 mg/dL (6-20) 04/20/23 20:11 Creatinine 1.3 mg/dL (0.7-1.2) H 04/20/23 20:11 GFR Calculation 58.0 mL/min (90-130) L 04/20/23 20:11 Glucose 244 mg/dL (65-115) H 04/20/23 20:11 Calculated Osmolality 299 mOsm/kg (285-295) H 04/20/23 20:11 Calcium 8.7 mg/dL (8.5-10.5) 04/20/23 20:11 Total Bilirubin 0.3 mg/dL (0.15-1.2) 04/20/23 20:11 AST 21 U/L (0-40) 04/20/23 20:11 ALT 11 U/L (0-41) 04/20/23 20:11 Alkaline Phosphatase 113 U/L (40-130) 04/20/23 20:11 Total Protein 6.9 g/dL (6.6-8.7) 04/20/23 20:11 Albumin 3.9 g/dL (3.5-5.2) 04/20/23 20:11 Globulin 3.0 g/dL (1.3-4.6) 04/20/23 20:11 Urine Color Yellow (Yellow) 04/20/23 20:14 Urine Appearance Clear (CLEAR) 04/20/23 20:14 Urine pH 5 (5-7) 04/20/23 20:14 Ur Specific [place] 1.010 (1.005-1.030) 04/20/23 20:14 Urine Protein Trace (Negative) 04/20/23 20:14 Urine Glucose (UA) 4+ (Normal) H 04/20/23 20:14 Urine Ketones Negative (Negative) 04/20/23 20:14 Urine Blood Neg (Negative) 04/20/23 20:14 Urine Nitrate Negative (Negative) 04/20/23 20:14 Urine Bilirubin Neg (Negative) 04/20/23 20:14 Urine Urobilinogen Neg mg/dL (Negative) 04/20/23 20:14 Ur Leukocyte Esterase Negative (Negative) 04/20/23 20:14 Urine RBC None /hpf (0-2) 04/20/23 20:14 Urine WBC None /hpf (0-5) 04/20/23 20:14 Ur Squamous Epith Cells 0-4 /hpf (0-5) H 04/20/23 20:14 Amorphous Sediment Not Reportable 04/20/23 20:14 Urine Bacteria None /hpf (NONE) 04/20/23 20:14 Discharge Plan Discharge Patient Disposition: Home Clinical Impression: Abdominal pain Qualifiers: Abdominal location: left lower quadrant Qualified Code(s): R10.32 - Left lower quadrant pain Condition: Stable Prescriptions: No Action pregabalin [Lyrica] 200 mg capsule 200 mg PO Q12H metformin 500 mg tablet extended release 24 hr 500 mg PO QAM cyclobenzaprine 10 mg tablet 10 mg PO TID PRN (Reason: Muscle Spasm) montelukast 10 mg tablet 10 mg PO DAILY cyanocobalamin (vitamin B-12) 1,000 mcg/mL solution 1,000 mcg IM Q30D (DME) Diabetic shoes with 3 inserts See Rx Instructions .Route .MEDSUPPLY Qty: 1 0RF Rx Instructions: As directed by [facility] folic acid 1 mg tablet 1 mg PO DAILY citalopram [Celexa] 40 mg tablet 40 mg PO DAILY@1000 Qty: 90 0RF Lamictal 200 mg tablet 200 mg PO DAILY@1000 Qty: 90 0RF prazosin 5 mg capsule 5 mg PO DAILY Qty: 90 0RF prazosin 2 mg capsule 2 mg PO .HS Qty: 90 0RF trazodone 300 mg tablet 300 mg PO BEDTIME Qty: 90 0RF Humulin 70/30 U-100 Insulin 100 unit/mL (70-30) suspension See Rx Instructions .ROUTE .COMPLEX Rx Instructions: per sliding scale Sore Throat (phenol) 1.4 % Aerosol,[place] 3 spray mucous membrane Q2H PRN (Reason: Sore Throat) 0RF cetirizine [Zyrtec] 10 mg Tablet 10 mg PO DAILY nystatin 100,000 unit/gram cream 1 applic TOPICAL BID diphenhydramine HCl [Benadryl Allergy] 25 mg Tablet 25 mg PO BID PRN (Reason: Allergy Symptoms) nitroglycerin [Nitrostat] 0.4 mg Tablet, Sublingual 0.4 mg SUBLINGUAL Q5M PRN (Reason: Chest Pain) Rx Instructions: do not exceed 3 doses per episode lorazepam 1 mg tablet 1 mg PO DAILY PRN (Reason: Anxiety) albuterol sulfate 90 mcg/actuation HFA aerosol inhaler 2 puff INHALATION Q6H PRN (Reason: Shortness Of Breath) rizatriptan 5 mg tablet,disintegrating 5 mg PO . DIRECTED MDD 30MG PRN (Reason: Migraine Headache) oxymetazoline [Nasal [place] (oxymetazoline)] 0.05 % [place],Non-Aerosol 2 spray INTRANASAL Q12H PRN (Reason: Nasal Congestion) Linzess 145 mcg capsule 145 mcg PO DAILY PRN (Reason: Constipation) [place] Leg Cramps 1 tab PO BID PRN (Reason: LEG CRAMPS) lactulose 10 gram/15 mL solution 40 g PO DAILY PRN (Reason: constipation) Qty: 473 1RF hydrocodone-acetaminophen 5-325 mg tablet 1 tab PO Q4H PRN (Reason: Pain) lisinopril-hydrochlorothiazide 20-25 mg tablet 1 tab PO DAILY Hold Instructions: Resume on 11/08/22. furosemide 40 mg tablet 80 mg PO BID atorvastatin 40 mg tablet 40 mg PO DAILY fluticasone propion-salmeterol [Wixela Inhub] 500-50 mcg/dose blister with device 1 ea inhalation BID spironolactone 50 mg tablet 50 mg PO BID potassium chloride 20 mEq tablet extended release 40 meq PO BID hydrocodone-acetaminophen 5-325 mg Tablet 1 tab PO BID PRN (Reason: SEVERE pain) Qty: 0 0RF isosorbide mononitrate 30 mg tablet extended release 24 hr 60 mg PO QAM Qty: 30 0RF metoprolol succinate 100 mg tablet extended release 24 hr 50 mg PO DAILY Qty: 30 0RF Protonix 40 mg tablet,delayed release (DR/EC) 40 mg PO DAILY Qty: 60 0RF ondansetron 4 mg tablet,disintegrating 4 mg PO Q6H PRN (Reason: nausea and vomiting) Qty: 14 0RF Discharge Orders: Discharge ED (Routine); Ordered 04/20/23 Ordered By: Ricardo Khalil Referrals: Agustina Whiting DO [Primary Care Provider] - Discharge Diet: Usual diet Patient Instructions: Abdominal Pain (ED), Opioid Safety, Pain Management Activity Restrictions/Additional Instructions: Follow-up with primary care as needed for further evaluation and treatment. Increase activity as tolerated. Return to ER for worsening symptoms such as fever greater than 100.4, blood in vomit or stool, or new concerns. 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 Carito Arreguin
--- NOTE | 2023-04-20 19:58 | CTR_ITS ---
PROCEDURE INFORMATION: Exam: CT Abdomen And Pelvis With Contrast Exam date and time: 04/20/2023 8:48 PM Age: 52 years old Clinical indication: Abdominal pain; Localized; Right lower quadrant (rlq); Prior surgery; Surgery date: 6+ months; Surgery type: Lap band. Lumbar fusion; Patient HX: Rlq/groin pain; Additional info: Right lower abd pain, radiate to groin TECHNIQUE: Imaging protocol: Computed tomography of the abdomen and pelvis with contrast. Radiation optimization: All CT scans at this facility use at least one of these dose optimization techniques: automated exposure control; mA and/or kV adjustment per patient size (includes targeted exams where dose is matched to clinical indication); or iterative reconstruction. Contrast material: OMNI 350; Contrast volume: 125 ml; Contrast route: INTRAVENOUS (IV); REPORTING DATA: Count of CT and Cardiac NM exams in prior 12 months: This patient has received 6 known CTs and 0 known cardiac nuclear medicine studies in the 12 months prior to the current study. COMPARISON: CT abdomen pelvis wo con [id number] 10/13/2022 11:43 AM RADIATION DOSE METRICS: Total DLP (mGy-cm): 1504.43 FINDINGS: Tubes, catheters and devices: LAP band is in place and the balloon appears deflated. Phi angle measures 65 degrees, more horizontal than optimal. Port for the lap band is situated in the left lower quadrant abdominal wall without associated fluid collection or inflammation. Lungs: Calcified granulomata noted at the left lung base. Lung bases are otherwise clear. Heart: Normal heart size. Diaphragm: Small sliding hiatal hernia. Liver: Normal configuration. Homogeneous parenchyma. Gallbladder and bile ducts: No regional inflammation. No calcified stones. No ductal dilation. Pancreas: Normal. No ductal dilation. Spleen: Normal. No splenomegaly. Adrenal glands: Normal configuration. Kidneys and ureters: Kidneys enhance symmetrically and demonstrate no evidence of mass, calculus, obstruction, or inflammation. Stomach and bowel: Postprandial stomach. Normal caliber small bowel. Normal colon. Appendix: Normal appendix is in a retrocecal position. Intraperitoneal space: No free air. No significant fluid collection. Vasculature: Mild aortoiliac calcific atherosclerosis without aneurysm. Lymph nodes: No enlarged lymph nodes. Urinary bladder: Unremarkable as visualized. Reproductive: Physiologic appearance for age. Bones/joints: Prior fusion procedure from L4-S1 with posterior element hardware and interbody bone graft. No acute bony abnormality. Soft tissues: Unremarkable. CT/CT abdomen pelvis w con* [id number] IMPRESSION: 1. No acute abnormality identified to explain patient's abdomen pain. In particular, there is no evidence bowel obstruction or urolithiasis, and a normal appendix is confirmed. 2. Somewhat horizontal orientation of the LAP band. LAP band balloon appears deflated.
[2023-04-20 20:23] LABS: Basophils # 0.1 10^3/uL (0.0-0.1); Basophils % 0.7 %; Eosinophils # 0.1 10^3/uL (0.0-0.8); Eosinophils % 0.8 %; Hematocrit 38.7 % (37-53); Lymphocytes # 2.7 10^3/uL (0.8-4.8); Lymphocytes % 20.4 %; Mean Corpuscular HGB Conc 31.3 g/dL (30-55); Mean Corpuscular Hemoglobin 28.7 pg (27-33); Mean Corpuscular Volume 91.7 fl (82-101); Mean Platelet Volume 10.1 fL (7.4-10.4); Monocytes # 0.5 10^3/uL (0.2-0.9); Monocytes % 3.7 %; Neutrophils # 9.93 10^3/uL (1.8-7.7); Neutrophils % 73.9 %; Nucleated Red Blood Cells % 0 %; Platelet Count 324 10^3/cmm (157-399); Red Blood Count 4.22 10^6/uL (3.85-5.65); Red Cell Distribution Width 14.8 % (12.1-15.1); White Blood Count 13.45 10^3/uL (3.29-11.43)
--- NOTE | 2023-04-20 20:24 | PC.NURSE ---
Gown Patient refused to get into a gown in the ER. States, if I have to stay the night here, then I will .
[2023-04-20 20:46] LABS: Alanine Aminotransferase 11 U/L (0-41); Albumin Level 3.9 g/dL (3.5-5.2); Alkaline Phosphatase 113 U/L (40-130); Anion Gap 13.3 (5-19); Aspartate Amino Transferase 21 U/L (0-40); Blood Urea Nitrogen 16 mg/dL (6-20); Calcium 8.7 mg/dL (8.5-10.5); Carbon Dioxide 28 mmol/L (22-29); Chloride 103 mmol/L (98-107); Glucose 244 mg/dL (65-115); Osmolality Calculated 299 mOsm/kg (285-295); Potassium 4.3 mmol/L (3.5-5.1); Sodium 140 mmol/L (136-145); Total Bilirubin 0.3 mg/dL (0.15-1.2); Total Protein 6.9 g/dL (6.6-8.7)
[2023-04-20 20:50] LABS: Add Urine Microscopic? YES; Bilirubin Urine Neg (Negative); Blood Urine Neg (Negative); Glucose Urine UA 4+ (Normal); Ketones Urine Negative (Negative); Leukocyte Esterase Urine Negative (Negative); Nitrate Urine Negative (Negative); Protein Urine Trace (Negative); Urine Appearance Clear (CLEAR); Urine Color Yellow (Yellow); Urobilinogen Urine Neg (Negative); pH Urine 5 (5-7)
[2023-04-20] MEDS: iohexol 350 mg/mL 500 mL Btl (per mL) IV (20:50)
[2023-04-20 20:51] LABS: Add Urine Culture? No; Squamous Epithelial Cell Urine 0-4 /hpf (0-5)
[2023-04-20 21:04] VITALS: BP 183/62; PULSE 68; RESP 20; O2SAT 88
[2023-04-20] MEDS: HYDROcodone-acetaminophen 10-325 mg Tablet 2 TAB PO (21:56)
[2023-04-20 22:00] VITALS: BP 134/45; O2SAT 92
== END 2023-04-20 22:04 | disposition home or self-care (01) ==
PROVIDERS: Emergency Provider Nurse Practitioner Family; PCP Family Medicine
DX: R10.32 Left lower quadrant pain (principal); Z79.84 Long term (current) use of oral hypoglycemic drugs; Z79.4 Long term (current) use of insulin
CPT/HCPCS: 74177; 80053; 81001; 85025; 99285; Q9967

== ENCOUNTER 2023-09-24 02:38 | Inpatient (IN) | payer MEDICARE, OTHER, SELFPAY ==
[2023-09-24] VITALS (11 sets, daily range): BP systolic 97–148; BP diastolic 48–81; PULSE 60–94; RESP 16–26; TEMP 36.4–37.9; O2SAT 80–96; BMI 48.0; BMI 48.8
--- NOTE | 2023-09-24 03:21 | XRR_ITS ---
PROCEDURE INFORMATION: Exam: XR Chest Exam date and time: 09/24/2023 3:54 AM Age: 53 years old Clinical indication: Dyspnea; Additional info: Dyspnea/cxp TECHNIQUE: Imaging protocol: Radiologic exam of the chest. Views: 1 view. COMPARISON: CT abdomen/pelvis 04/20/2023, CT angio chest PE 02/15/2023 and 10/31/2022, Portable chest x-ray 02/15/2023 and 11/01/2022. FINDINGS: Lungs: Mild asymmetric haziness and prominence of the vascular markings in the right lung, new from the comparison radiographs. Pleural spaces: No pleural effusion, or discernible pneumothorax. Heart/Mediastinum: Enlarged cardiomediastinal silhouette, increased from priors and in part due to AP technique and prominent epicardial fat, compatible with borderline cardiomegaly. Bones/joints: Cervical fusion hardware. Soft tissues: Single AP view of the chest shows no significant rotation. XR/XR chest 1V portable [id number] IMPRESSION: Right lung airspace infiltrates and borderline cardiomegaly, suggestive of mild edema with superimposed infection/pneumonia possible.
--- NOTE | 2023-09-24 03:21 | ECG_ITS ---
[facility] Test Date: 2023-09-24 Pat Name: Sergei Lucas Department: Room: Gender: Male Sock Examiner: : 1970 Requested By: Israel Hidalgo Order Number: [id number] Sergio MD: Neel Pandey M.D. Measurements Intervals [place] Rate: 85 P: 44 VT: 146 QRS: 1 QRSD: 92 T: 44 QT: 358 QTc: 427 Interpretive Statements SINUS RHYTHM Compared to ECG 10/31/2022 06:31:34 No significant changes Electronically Signed On 09-24-2023 23:03:53 CDT by Neel Pandey M.D. [email or web address]/[id number] f
[2023-09-24 03:26] LABS: Basophils # 0.1 10^3/uL (0.0-0.1); Basophils % 0.3 %; Eosinophils % 0.2 %; Hematocrit 36.1 % (37-53); Lymphocytes # 1.7 10^3/uL (0.8-4.8); Lymphocytes % 8.2 %; Mean Corpuscular Hemoglobin 27.3 pg (27-33); Mean Platelet Volume 10.1 fL (7.4-10.4); Monocytes # 0.9 10^3/uL (0.2-0.9); Monocytes % 4.4 %; Neutrophils # 17.54 10^3/uL (1.8-7.7); Neutrophils % 86.3 %; Nucleated Red Blood Cells % 0 %; Platelet Count 250 10^3/cmm (157-399); Red Cell Distribution Width 15.3 % (12.1-15.1); White Blood Count 20.34 10^3/uL (3.29-11.43)
[2023-09-24 03:37] LABS: INR 0.98 (0.8-1.2)
[2023-09-24] MEDS: ibuprofen 800 mg tablet PO (03:39)
[2023-09-24] MEDS: aspirin 81 mg Chew Tablet 324 MG PO (03:39)
[2023-09-24 03:49] LABS: Influenza A by IFA negative (Negative); Influenza B by IFA negative (Negative); SARS Covid-2 Antigen negative (Negative)
[2023-09-24 03:50] LABS: Troponin(5th) Baseline 22 ng/L (0-15)
[2023-09-24 03:57] LABS: Alanine Aminotransferase 21 U/L (0-41); Albumin Level 3.4 g/dL (3.5-5.2); Alkaline Phosphatase 104 U/L (40-130); Aspartate Amino Transferase 16 U/L (0-40); Blood Urea Nitrogen 35 mg/dL (6-20); Calcium 8.1 mg/dL (8.5-10.5); Carbon Dioxide 27 mmol/L (22-29); Chloride 101 mmol/L (98-107); Creatinine Clr Calc Pharmacy 79.2457; Globulin 2.2 g/dL (1.3-4.6); Glucose 280 mg/dL (65-115); NT Pro B Type Natriuretic Pept 271 pg/mL (0-125); Osmolality Calculated 308 mOsm/kg (285-295); Sodium 140 mmol/L (136-145); Total Bilirubin 0.4 mg/dL (0.15-1.2); Total Protein 5.6 g/dL (6.6-8.7)
[2023-09-24 03:58] LABS: Anion Gap 15.9 (5-19); Potassium 3.9 mmol/L (3.5-5.1)
--- NOTE | 2023-09-24 05:10 | ED_ITS ---
HPI - Fever 2 General: Chief Complaint: Fever Stated Complaint: fever tight in lungs sob headache Time Seen by Provider: 09/24/23 03:12 History of Present Illness: 53-year-old male presents to the emergen cy department with complaints of a high fever, nonproductive cough increased work of breathing. Patient was seen last week by his primary care provider and provided antibiotics and since that time he has had a worsening shortness of breath. He is normally on 2 L nasal cannula but does not wear it on a regular basis at home. He states he has had increased work of breathing throughout the day and feels like his chest is very tight. He states that he has had an elevated temperature that is worse today. He had an initial oxygen saturation in the mid 80s on room air and is requiring supplemental oxygen to maintain his oxygen saturation. Associated symptoms: Reports chills and chest pain Review of Systems 2 General: Reports: 10 or more systems reviewed and unremarkable except in HPI and below Const: Reports: fever(s), chills, body aches, fatigue and malaise Card: Reports: chest pain Resp: Reports: dyspnea and non-productive cough PFSH ED 2 PFSH: Medical History Chest pain Psychiatric care Generalized anxiety disorder Post-traumatic stress disorder, chronic Opioid contract exists Encounter for long-term use of opiate analgesic Lumbar back pain Surgical History History of colonoscopy History of elbow surgery History of lumbar fusion History of neck surgery 3x LAP-BAND surgery status Family History Other CAD (coronary artery disease) Cancer Diabetes Hypertension Psychiatric illness Social History Smoking and tobacco/nicotine status: never used tobacco/nicotine Alcohol intake: never Substance/Drug Use: never Physical Exam 2 Narrative: EXAM NARRATIVE: Constitutional: the patient appears well nourished and of normal development. Vital signs as documented. No acute distress at present. Alert and oriented-to person, place, time and situation. Head, eyes, ears, nose, mouth, throat: Normocephalic, atraumatic. Pupils-equal, round, reactive to light. No scleral icterus. Normal-appearing external ears. Normal appearing nasal turbinates, no drainage. No obvious oral lesions, posterior oropharynx without erythema or exudates. Neck: Supple, trachea is midline, no lymphadenopathy, no jugular venous distension, thyromegaly, or carotid bruits. Carotid upstrokes are brisk bilaterally. Lungs: Rhonchi to the right mid and lower lung [place]. Symmetrical rise and fall of chest, mild increased work of breathing at present. Cardiac: Regular rate and rhythm, positive S1, S2. No murmurs, rubs or gallops that I can appreciate Abdomen: Soft, non-tender to palpation, normal active bowel sounds to all quadrants. No palpable masses, no organomegaly and abdominal bruits. Extremities: 2+ pulses in the upper extremities that are equal bilaterally, 2+ pulses in the lower extremities that are equal bilaterally. Non-edematous. Moves all extremities well, sensation to all extremities are noted. Skin: Warm, dry, intact. Course 2 Vital Signs: Vital signs: Vital Signs Temperature 100.2 F H 09/24/23 02:57 Pulse Rate 78 09/24/23 05:05 Respiratory Rate 21 H 09/24/23 05:05 Blood Pressure 97/48 09/24/23 05:05 Pulse Oximetry 95 09/24/23 05:05 Oxygen Delivery Me thod Room Air 09/24/23 02:57 MDM - Fever Medical Decision Making Physical exam completed and documented I will obtain a CBC CMP PT PTT INR cardiac enzymes and twelve-lead EKG as well as a chest x-ray as well as influenza and COVID screening. I will provide him by mouth Tylenol for his fever. Differential diagnosis to include failed outpatient antibiotic therapy, pneumonia, NSTEMI, electrolyte abnormality dehydration. Medical Records I reviewed the patient's medical records. Lab Data I reviewed the patient's lab results. 09/24/23 03:16 09/24/23 03:16 Laboratory Results WBC 20.34 10^3/uL (3.29-11.43) H 09/24/23 03:16 RBC 4.10 10^6/uL (3.85-5.65) 09/24/23 03:16 Hgb 11.20 g/dL (11.27-16.99) L 09/24/23 03:16 Hct 36.1 % (37-53) L 09/24/23 03:16 MCV 88.0 fl (82-101) 09/24/23 03:16 MCH 27.3 pg (27-33) 09/24/23 03:16 MCHC 31.0 g/dL (30-55) 09/24/23 03:16 RDW 15.3 % (12.1-15.1) H 09/24/23 03:16 Plt Count 250 10^3/cmm (157-399) 09/24/23 03:16 MPV 10.1 fL (7.4-10.4) 09/24/23 03:16 Neut % (Auto) 86.3 % 09/24/23 03:16 Lymph % (Auto) 8.2 % 09/24/23 03:16 [place] % (Auto) 4.4 % 09/24/23 03:16 Eos % (Auto) 0.2 % 09/24/23 03:16 Baso % (Auto) 0.3 % 09/24/23 03:16 Neut # (Auto) 17.54 10^3/uL (1.8-7.7) H 09/24/23 03:16 Lymph # (Auto) 1.7 10^3/uL (0.8-4.8) 09/24/23 03:16 [place] # (Auto) 0.9 10^3/uL (0.2-0.9) 09/24/23 03:16 Eos # (Auto) 0.0 10^3/uL (0.0-0.8) 09/24/23 03:16 Baso # (Auto) 0.1 10^3/uL (0.0-0.1) 09/24/23 03:16 Nucleated RBC % (auto) 0 % 09/24/23 03:16 Nucleated RBCs # 0.0 /100WBC 09/24/23 03:16 PT 13.20 SECONDS (12.1-14.9) 09/24/23 03:16 INR 0.98 (0.8-1.2) 09/24/23 03:16 Sodium 140 mmol/L (136-145) 09/24/23 03:16 Potassium 3.9 mmol/L (3.5-5.1) 09/24/23 03:16 Chloride 101 mmol/L (98-107) 09/24/23 03:16 Carbon Dioxide 27 mmol/L (22-29) 09/24/23 03:16 Anion Gap 15.9 (5-19) 09/24/23 03:16 BUN 35 mg/dL (6-20) H 09/24/23 03:16 Creatinine 1.5 mg/dL (0.7-1.2) H 09/24/23 03:16 GFR Calculation 49.0 mL/min (90-130) L 09/24/23 03:16 Glucose 280 mg/dL (65-115) H 09/24/23 03:16 Calculated Osmolality 308 mOsm/kg (285-295) H 09/24/23 03:16 Lactic Acid 2.2 mmol/L (0.5-2.2) 09/24/23 03:16 Calcium 8.1 mg/dL (8.5-10.5) L 09/24/23 03:16 Total Bilirubin 0.4 mg/dL (0.15-1.2) 09/24/23 03:16 AST 16 U/L (0-40) 09/24/23 03:16 ALT 21 U/L (0-41) 09/24/23 03:16 Alkaline Phosphatase 104 U/L (40-130) 09/24/23 03:16 Troponin T Baseline 22 ng/L (0-15) H 09/24/23 03:16 Troponin T 120 Minute 25.60 ng/L (0-15) H 09/24/23 05:01 Delta Troponin T 3.60 ABS# (0-10) 09/24/23 05:01 NT-Pro-B Natriuret Pep 271 pg/mL (0-125) H 09/24/23 03:16 Total Protein 5.6 g/dL (6.6-8.7) L 09/24/23 03:16 Albumin 3.4 g/dL (3.5-5.2) L 09/24/23 03:16 Globulin 2.2 g/dL (1.3-4.6) 09/24/23 03:16 Procalcitonin 0.12 ng/mL (0-0.5) 09/24/23 03:16 Influenza Type A Ag negative (Negative) 09/24/23 03:28 Influenza Type B Ag negative (Negative) 09/24/23 03:28 SARS-CoV-2 Ag (Rapid) negative (Negative) 09/24/23 03:28 All radiology interpretation(s) finalized by discharge EKG Data EKG 1: Interpretation: Twelve-lead EKG obtained at 310 and reviewed at 315 demonstrates sinus rhythm ventricular rate 85 SD interval 146 QRS duration 92 QT 353 QTc 400 at present there is no ST elevation or depression to demonstrate acute ischemia or infarction. Discharge Plan Discharge Patient Disposition: Admitted As Inpatient Clinical Impression: Acute dyspnea Pneumonia Qualifiers: Pneumonia type: due to unspecified organism Laterality: right Lung location: l ower lobe of lung Qualified Code(s): J18.9 - Pneumonia, unspecified organism Condition: Stable Coding Level of Care Code ED Hotbed Lever Operator for Carito Arreguin
[2023-09-24 05:26] LABS: Lactic Sepsis W/Reflex 2.2 mmol/L (0.5-2.2)
--- NOTE | 2023-09-24 05:29 | P.HP_ITS ---
Providers/Chief Complaint 2 Primary Care Provider: Agustina Whiting DO Chief Complaint: fever tight in lungs/ chest sob headache CHF History of Present Illness Sergei Lucas is a 53 year old male who presented today with chief complaint of worsening of shortness of breath. He carries history of diastolic CHF, states that he was prescribed oxygen but he does not use it on daily basis because he never required it, does not watch his sodium or fluid intake, stating that he drinks 4 L / 1 gallon of water every day, he is also on Lasix 160 mg daily stating that he also has 120 mg as a backup in case he is not able to make much urine, presented to the hospital for worsening of shortness of breath. Patient is stating that for last 3 to 4 weeks he has been having chest congestion, nonproductive cough, he recently had finished Medrol pack along antibiotics given by Dr. Whiting. He has not noticed nausea, vomiting but endorsing fever 103 last night, endorsing chest heaviness which she is describing as something stuck in his chest which she is not able to clear up. Hospitalist was requested to admit him because he has failed his outpatient treatment and currently requiring 2 L of oxygen Review of Systems 2 Const: Reports: fever(s) Eyes: Denies: change in vision ENMT: Denies: throat pain Card: Reports: chest pain Resp: Reports: dyspnea GI: Denies: abdominal pain : Denies: flank pain Medications/Allergies Home Medications Medication Instructions Recorded Confirmed Last Taken Type pregabalin 200 mg capsule (Lyrica) 200 mg PO Q12H 09/15/19 08/06/23 10/30/22 History insulin human U-100 NPH-regulr See Rx Instructions .Route .COMPLEX 06/20/20 08/06/23 06/20/20 History 70-30 mix 100 unit/mL subcutaneous susp (Humulin 70/30 U-100 Insulin) cyanocobalamin (vitamin B-12) 1,000 mcg IM Q30D 07/24/21 08/06/23 Unknown History 1,000 mcg/mL injection solution cyclobenzaprine 10 mg tablet 10 mg PO TID PRN Muscle Spasm 07/24/21 08/06/23 Unknown History montelukast 10 mg tablet 10 mg PO DAILY 07/24/21 08/06/23 10/30/22 History folic acid 1 mg tablet 1 mg PO DAILY 03/21/22 08/06/23 Unknown History Diabetic shoes with 3 inserts #1 ea 04/24/22 08/06/23 Unknown Rx [place] Leg Cramps 1 tab PO BID PRN LEG CRAMPS 05/01/22 08/06/23 Unknown History albuterol sulfate 90 mcg/actuation 2 puff inhalation Q6H PRN 05/01/22 08/06/23 Unknown History aerosol inhaler Shortness Of Breath cetirizine 10 mg tablet (Zyrtec) 10 mg PO DAILY 05/01/22 08/06/23 10/30/22 History diphenhydramine HCl 25 mg tablet 25 mg PO BID PRN Allergy Symptoms 05/01/22 08/06/23 Unknown History (Benadryl Allergy) lactulose 10 gram/15 mL oral 40 g (60 mL) PO DAILY PRN 05/01/22 08/06/23 Unknown Rx solution constipation #473 mL linaclotide 145 mcg capsule 145 mcg PO DAILY PRN Constipation 05/01/22 08/06/23 Unknown History (Linzess) lorazepam 1 mg tablet 1 mg PO DAILY PRN Anxiety 05/01/22 08/06/23 Unknown History nitroglycerin 0.4 mg sublingual 0.4 mg sublingual Q5M PRN Chest 05/01/22 08/06/23 Unknown History tablet (Nitrostat) Pain nystatin 100,000 unit/gram topical 1 applic topical BID 05/01/22 08/06/23 Unknown History cream oxymetazoline 0.05 % nasal spray 2 spray intranasal Q12H PRN Nasal 05/01/22 08/06/23 Unknown History (Nasal [place] (oxymetazoline)) Congestion rizatriptan 5 mg disintegrating 5 mg PO . DIRECTED PRN Migraine 05/01/22 08/06/23 Unknown History tablet Headache atorvastatin 40 mg tablet 40 mg PO DAILY 10/31/22 08/06/23 Unknown History fluticasone 500 mcg-salmeterol 50 1 ea inhalation BID 10/31/22 08/06/23 10/30/22 History mcg/dose blistr powdr for inhalation (Wixela Inhub) furosemide 40 mg tablet 80 mg PO BID 10/31/22 08/06/23 Unknown History hydrocodone 5 mg-acetaminophen 325 1 tab PO Q4H PRN Pain 10/31/22 08/06/23 Unknown History mg tablet potassium chloride 20 mEq 40 meq PO BID 10/31/22 08/06/23 10/31/22 History tablet,extended release hydrocodone 5 mg-acetaminophen 325 1 tab PO BID PRN SEVERE pain #0 11/01/22 08/06/23 Unknown Rx mg tablet tabs isosorbide mononitrate 30 mg 60 mg (2 x 30 mg) PO QAM #30 tabs 11/01/22 08/06/23 10/31/22 Rx tablet,extended release 24 hr metoprolol succinate 100 mg 50 mg (1/2 x 100 mg) PO DAILY #30 11/01/22 08/06/23 10/30/22 Rx tablet,extended release 24 hr tabs phenol 1.4 % mucosal aerosol spray 3 spray mucous membrane Q2H PRN 11/15/22 08/06/23 Unknown Rx (Sore Throat (phenol)) Sore Throat ondansetron 4 mg disintegrating 4 mg PO Q6H PRN nausea and 01/16/23 08/06/23 Unknown Rx tablet vomiting #14 tabs pantoprazole 40 mg tablet,delayed 40 mg PO DAILY #60 tabs 01/16/23 08/06/23 Unknown Rx release (Protonix) trazodone 300 mg tablet 300 mg PO BEDTIME #90 tabs 03/15/23 08/06/23 Unknown Rx quetiapine 50 mg tablet (Seroquel) 50 mg PO .HS #30 tabs 07/30/23 08/06/23 Unknown Rx citalopram 40 mg tablet See Rx Instructions .Route 08/27/23 Unknown Rx .COMPLEX #30 tabs lamotrigine 200 mg tablet See Rx Instructions .Route 08/27/23 Unknown Rx .COMPLEX #30 tabs prazosin 2 mg capsule See Rx Instructions .Route 08/27/23 Unknown Rx .COMPLEX #30 caps prazosin 5 mg capsule See Rx Instructions .Route 08/27/23 Unknown Rx .COMPLEX #30 caps Allergies Allergy/AdvReac Type Severity Reaction Status Date / Time promethazine [From Phenergan] Allergy Unknown HARD TO Verified 09/24/23 03:05 BREATH PFSH Acute 2 PFSH: Medical History Chest pain Psychiatric care Generalized anxiety disorder Post-traumatic stress disorder, chronic Opioid contract exists Encounter for long-term use of opiate analgesic Lumbar back pain Surgical History History of colonoscopy History of elbow surgery History of lumbar fusion History of neck surgery 3x LAP-BAND surgery status Family History Other CAD (coronary artery disease) Cancer Diabetes Hypertension Psychiatric illness Social History Smoking and tobacco/nicotine status: never used tobacco/nicotine Alcohol intake: never Substance/Drug Use: never Vitals/I&O/Wt Last Vital Signs Temp 100.2 F H 09/24/23 02:57 Pulse 78 09/24/23 05:05 Resp 21 H 09/24/23 05:05 BP 97/48 09/24/23 05:05 Pulse Ox 95 09/24/23 05:05 O2 Del Method Room Air 09/24/23 02:57 Weight last 48 hrs Weight 143.335 kg Physical Exam 2 Narrative: Patient is awake and alert Mild signs of fluid overload Currently on 2 L GCS 15 Acute chest pain Pleasant cooperative Nonfocal neuroexam Morbidly obese S1, S2 Data 09/24/23 03:16 09/24/23 03:16 A&P Assessment and plan (1) Sepsis: (2) Community acquired pneumonia: (3) Insulin dependent type 2 diabetes mellitus: (4) Dyspnea: (5) Acute dyspnea: (6) Insomnia: (7) Acute kidney injury: (8) CHF exacerbation: Plan Sepsis related to clinical pneumonia Failed outpatient therapy Recently finished Medrol pack I will put him on ceftriaxone and azithromycin Lactic acid is normal Sepsis criteria met with fever tachypnea, leukocytosis, lactic acid normal, endorgan damage of creatinine 1.5 unfortunately we cannot give him septic bolus because of active signs of heart failure will give him only 500 mL bolus he is hemodynamically stable He has received antibiotics in the ER, blood cultures taken Will request CT chest Diastolic CHF exacerbation Currently in sepsis Previous echo showed preserved ejection fraction with mild Patient does not watch his sodium or fluid intake Drinks 1 gallon of water Take 660 mg of Lasix I will give him IV Lasix for now BNP 1 be reliable considering his BMI TERRANCE likely cardiorenal: Anticipate improvement with diuresis Sleep apnea, intermittent use of oxygen, currently requiring 2 L Acute hypoxia on 2 L Related to above-mentioned reasons DVT prophylaxis Lovenox Considering his morbid obesity and BMI 48 I will give him Lovenox 30 mg every 12 hours Cardiac diet/consistent carb along insulin sliding scale Attestations 2 Medical Necessity Statement*: More than 2 midnights anticipated for management of sepsis related to pneumonia currently requiring 2 L of oxygen Diagnoses Sepsis A41.9 Community acquired pneumonia J18.9 Insulin dependent type 2 diabetes mellitus E11.9; Z79.4 Dyspnea R06.00 Acute dyspnea R06.00 Insomnia G47.00 Acute kidney injury N17.9 CHF exacerbation I50.9
[2023-09-24 05:34] LABS: Procalcitonin 0.12 ng/mL (0-0.5)
[2023-09-24 05:49] LABS: D Dimer 0.58 ug/mLFEU (0-0.59)
[2023-09-24] MEDS: cefTRIAXone 2,000 MG in sodium chloride 0.9% (plus) 50 ML 100 MG IV (06:15)
[2023-09-24 06:35] LABS: Glucose Point of Care 217 mg/dL (70-110)
[2023-09-24 07:00] LABS: Reflex Lactate Order REFLEX LACTIC ORDERD
[2023-09-24 07:21] LABS: Estmated Average Glucose 174; Hemoglobin A1C 7.7 % (4.0-6.0)
--- NOTE | 2023-09-24 07:24 | CT_ITS ---
WS: [id number] CT chest wo con [id number] HISTORY: Hypoxia, pneumonia, TECHNIQUE: Axial imaging performed through the thorax. Coronal and sagittal reformats are submitted. All CT scans at [facility] use at least one of these dose optimization techniques: automated exposure control; mA and/or kV adjustment per patient size (includes targeted exams where dose is mat ched to clinical indication); or iterative reconstruction. CONTRAST: Omnipaque 350; 100 mL IV. DLP: 883.91 mGy.cm COMPARISON: 02/15/2023 Lungs and central airway: Bilateral irregular areas of opacification throughout all lobes. Groundglas s areas with scattered subsolid opacifications. No pneumothorax. Granuloma LEFT lung. Pleura: Normal. No pleural effusion. Heart and pericardium: Normal size heart with no pericardial effusion. Mediastinum and chinyere: No mediastinum or hilar adenopathy. Moderate dilatation of the esophagus with f luid to above the lavon. There is several small foci within the dilated fluid-filled esophagus of in creased density these may be medicinal tablets scattered along the dilated esophagus. Vessels: Normal size pulmonary artery. Mild atherosclerosis aorta. Chest wall and lower neck: No soft tissue masses. Upper abdomen: Status post lap band which appears appropriate. Stomach is distended with fluid and fo od products. Normal adrenal glands. Hepatic steatosis. Osseous structures: Sclerotic foci within several thoracic vertebral bodies unchanged since 02/15/2023. No progression. IMPRESSION: 1. Diffuse bilateral groundglass and reticular nodular opacifications throughout both lungs. Probabl y representing of viral pneumonia or aspiration pneumonia. 2. Fluid-filled dilated esophagus. 3. Small foci of increased density within the dilated fluid-filled esophagus. These may be medicinal tablets that are retained within the esophagus. 4. Prior lap band procedure.
[2023-09-24 07:27] LABS: Thyroid Stimulating Hormone 0.01 uIU/mL (0.27-4.20)
[2023-09-24] MEDS: ipratropium-albuterol 3 mL Neb INHALATION (07:53)
[2023-09-24 08:00] LABS: Free T4 Free Thyroxine 1.75 ng/dL (0.82-1.77)
[2023-09-24 08:29] LABS: Lactic Acid level (Lactate) 1.5 mmol/L (0.5-2.2)
[2023-09-24] MEDS: FUROsemide 10 mg/mL SDV 10mL 60 MG IVP ×2 (08:36→21:30)
[2023-09-24] MEDS: insulin lispro 100 unit/1 mL SUBCUT ×2 (08:37→12:10)
[2023-09-24] MEDS: azithromycin 250 mg Tablet 500 MG PO (08:37)
[2023-09-24] MEDS: enoxaparin 30 mg/0.3 mL Syringe SUBCUT ×2 (08:37→20:44)
[2023-09-24] MEDS: sennosides-docusate Tablet 1 TAB PO (08:37)
[2023-09-24] MEDS: lactated ringers 500 ML 999 ML IV (08:39)
--- NOTE | 2023-09-24 09:27 | PC.PHAR ---
Addendum entered by Marlene Lees 09/24/23 10:33: PER [facility] MAJORITY OF MEDICATIONS. SOME MEDS (NARCOTICS AND INJECTABLES) COME FROM [facility]. Original Note: PT USES [facility]FAXING MED LIST 09/24/23
[2023-09-24] MEDS: lamoTRIgine 100 mg Tablet 200 MG PO (09:32)
--- NOTE | 2023-09-24 10:39 | PC.NURSE ---
Emergency light going off and patient states he just needs assistance cleaning up after using the restroom. Assisted patient in cleaning up and pulling up his pants, then he was able to ambulate with verbal guidance only using standard cane. He washed his hands independently and returned to his bed utilizing cane.
[2023-09-24 11:15] LABS: Glucose Point of Care 153 mg/dL (70-110)
[2023-09-24] MEDS: ondansetron 2 mg/ML SDV 2 mL 4 MG IVP (12:11)
--- NOTE | 2023-09-24 12:43 | PM.MISC ---
Miscellaneous Note Purpose of Documentation: Seen this morning. Agree with assessment plan and H&P. Patient lying in bed appearing comfortable No acute distress.
--- NOTE | 2023-09-24 12:43 | PC.NURSE ---
Pt vomited up the portion of his lunch he was able to eat. Zofran was given and vomiting has subsided. Pt states he vomits every time he tries to eat and has difficulty swallowing. Order for a swallow study put in. Pt was made NPO. Pt states he is in pain and has PO hydrocodone available. Dr. Andrews notified of vomiting and DARVIN Montoya requested pain medication orders IVP. Waiting on orders from .
[2023-09-24 17:05] LABS: Glucose Point of Care 134 mg/dL (70-110)
[2023-09-24] MEDS: morphine 4 mg/mL SDV 1 mL 2 MG IVP (17:22)
[2023-09-24 20:34] LABS: Glucose Point of Care 165 mg/dL (70-110)
[2023-09-24] MEDS: HYDROcodone-acetaminophen 5-325 mg Tablet 1 TAB PO (20:44)
[2023-09-24] MEDS: quetiapine 25 mg Tablet 50 MG PO (20:44)
[2023-09-25] VITALS (13 sets, daily range): BP systolic 109–168; BP diastolic 58–107; PULSE 74–130; RESP 16–20; TEMP 36.9–39.4; O2SAT 90–95
[2023-09-25 01:18] LABS: Adenovirus Not Detected (NOT DETECT); Chlamydia Pneumoniae Not Detected (NOT DETECT); Coronavirus 229E,HKU1,NL63,OC4 Not Detected (NOT DETECT); Human Metapneumovirus Not Detected (NOT DETECT); Human Rhinovirus/Enterovirus Not Detected (NOT DETECT); Influenza A Not Detected (NOT DETECT); Influenza A H1 Not Detected (NOT DETECT); Influenza A H1-2009 Not Detected (NOT DETECT); Influenza A H3 Not Detected (NOT DETECT); Influenza B Not Detected (NOT DETECT); Mycoplasma Pneumoniae Not Detected (NOT DETECT); Parainfluenza Virus Type 1 Not Detected (NOT DETECT); Parainfluenza Virus Type 2 Not Detected (NOT DETECT); Parainfluenza Virus Type 3 Not Detected (NOT DETECT); Parainfluenza Virus Type 4 Not Detected (NOT DETECT); Respiratory Syncytial Virus A Not Detected (NOT DETECT); Respiratory Syncytial Virus B Not Detected (NOT DETECT); SARS-COV-2 Not Detected (NOT DETECT)
[2023-09-25] MEDS: acetaminophen 500 mg Tablet PO (03:53)
[2023-09-25 05:14] LABS: Basophils # 0.1 10^3/uL (0.0-0.1); Basophils % 0.3 %; Eosinophils # 0.3 10^3/uL (0.0-0.8); Eosinophils % 1.7 %; Hematocrit 36.2 % (37-53); Lymphocytes # 2.6 10^3/uL (0.8-4.8); Lymphocytes % 16.8 %; Mean Corpuscular HGB Conc 30.4 g/dL (30-55); Mean Corpuscular Hemoglobin 27.3 pg (27-33); Mean Corpuscular Volume 89.8 fl (82-101); Mean Platelet Volume 10.1 fL (7.4-10.4); Monocytes # 0.7 10^3/uL (0.2-0.9); Monocytes % 4.7 %; Neutrophils # 11.65 10^3/uL (1.8-7.7); Neutrophils % 75.9 %; Nucleated Red Blood Cells % 0 %; Platelet Count 241 10^3/cmm (157-399); Red Blood Count 4.03 10^6/uL (3.85-5.65); Red Cell Distribution Width 15.6 % (12.1-15.1); White Blood Count 15.34 10^3/uL (3.29-11.43)
[2023-09-25 05:45] LABS: Anion Gap 13.9 (5-19); Blood Urea Nitrogen 31 mg/dL (6-20); C Reactive Protein 157.1 mg/L (0.0-4.9); Calcium 8.5 mg/dL (8.5-10.5); Carbon Dioxide 32 mmol/L (22-29); Chloride 97 mmol/L (98-107); Creatinine Clr Calc Pharmacy 92.1122; Glomerular Filtration Rate 57.7 mL/min (90-130); Glucose 148 mg/dL (65-115); Magnesium 2.2 mg/dL (1.7-2.3); Osmolality Calculated 297 mOsm/kg (285-295); Phosphorus 3.2 mg/dL (2.5-4.5); Potassium 3.9 mmol/L (3.5-5.1); Sodium 139 mmol/L (136-145)
[2023-09-25 06:18] LABS: Glucose Point of Care 166 mg/dL (70-110)
[2023-09-25] MEDS: cefTRIAXone 1,000 MG in sodium chloride 0.9% (plus) 50 ML 100 MG IV (08:18)
[2023-09-25] MEDS: enoxaparin 30 mg/0.3 mL Syringe SUBCUT ×2 (08:18→20:20)
[2023-09-25] MEDS: insulin lispro 100 unit/1 mL SUBCUT ×2 (08:19→18:05)
[2023-09-25] MEDS: FUROsemide 10 mg/mL SDV 10mL 60 MG IVP ×2 (09:32→20:36)
[2023-09-25] MEDS: morphine 4 mg/mL SDV 1 mL 2 MG IVP ×2 (09:32→18:35)
[2023-09-25 11:33] LABS: Glucose Point of Care 215 mg/dL (70-110)
[2023-09-25] MEDS: sodium chloride 0.9% 1,000 ML 30 ML IV (12:36)
--- NOTE | 2023-09-25 13:37 | P.CONIM_ITS ---
Providers/Reason For Consult 2 Consulting Physician/Specialty*: Dr. Weston Alvares, /General surgery Reason for Consult*: Fluid-filled, dilated esophagus Attending Physician: Vanessa Andrews MD Primary Care Provider: Agustina Whiting DO History of Present Illness History of Present Illness Sergei Lucas is a 53 year old male, with a history of diastolic CHF, who presented to the hospital with shortness of breath and fever. He reports that whenever he swallows pills he has difficulty getting them down and often ends up vomiting. He has a history of tracheostomy which he attributes to the pills getting stuck in the back of his throat. He also has a history of lap band which he has been trying to get removed but has been unsuccessful in that. A CT of his chest shows likely aspiration pneumonia and a fluid-filled and dilated esophagus containing pills. He denies any abdominal pain, diarrhea, constipation, hematochezia and/or melena. Review of Systems 2 General: Reports: 10 or more systems reviewed and unremarkable except in HPI and below Medications/Allergies Home Medications Medication Instructions Recorded Confirmed Last Taken Type pregabalin 200 mg capsule (Lyrica) 200 mg PO Q12H 09/15/19 09/24/23 09/23/23 History insulin human U-100 NPH-regulr 80 unit SUBCUT BID 06/20/20 09/24/23 09/23/23 History 70-30 mix 100 unit/mL subcutaneous susp (Humulin 70/30 U-100 Insulin) montelukast 10 mg tablet 10 mg PO DAILY 07/24/21 09/24/23 09/23/23 History Diabetic shoes with 3 inserts #1 ea 04/24/22 09/24/23 Unknown Rx albuterol sulfate 90 mcg/actuation See Rx Instructions .Route 05/01/22 09/24/23 Unknown History aerosol inhaler .COMPLEX PRN Shortness Of Breath cetirizine 10 mg tablet (Zyrtec) 10 mg PO DAILY 05/01/22 09/24/23 10/30/22 History diphenhydramine HCl 25 mg tablet 25 mg PO BID PRN Allergy Symptoms 05/01/22 09/24/23 Unknown History (Benadryl Allergy) lorazepam 1 mg tablet 1 mg PO DAILY PRN Anxiety 05/01/22 09/24/23 09/23/23 History nystatin 100,000 unit/gram topical 1 applic topical BID 05/01/22 09/24/23 09/23/23 History cream oxymetazoline 0.05 % nasal spray 2 spray intranasal Q12H PRN Nasal 05/01/22 09/24/23 Unknown History (Nasal [place] (oxymetazoline)) Congestion atorvastatin 40 mg tablet 40 mg PO DAILY 10/31/22 09/24/23 09/23/23 History metoprolol succinate 100 mg 50 mg (1/2 x 100 mg) PO DAILY #30 11/01/22 09/24/23 09/23/23 Rx tablet,extended release 24 hr tabs trazodone 300 mg tablet 300 mg PO BEDTIME #90 tabs 03/15/23 09/24/23 09/23/23 Rx quetiapine 50 mg tablet (Seroquel) 50 mg PO .HS #30 tabs 07/30/23 09/24/23 09/23/23 Rx citalopram 40 mg tablet See Rx Instructions .Route 08/27/23 09/24/23 09/23/23 Rx .COMPLEX #30 tabs lamotrigine 200 mg tablet See Rx Instructions .Route 08/27/23 09/24/23 09/23/23 Rx .COMPLEX #30 tabs prazosin 2 mg capsule See Rx Instructions .Route 08/27/23 09/24/23 09/23/23 Rx .COMPLEX #30 caps prazosin 5 mg capsule See Rx Instructions .Route 08/27/23 09/24/23 09/23/23 Rx .COMPLEX #30 caps amoxicillin 500 mg-potassium 1 tab PO BID 09/24/23 09/24/23 Unknown History clavulanate 125 mg tablet dapagliflozin propanediol 10 mg 10 mg PO DAILY 09/24/23 09/24/23 09/23/23 History tablet (Farxiga) furosemide 20 mg tablet 40 mg PO DAILY 09/24/23 09/24/23 09/23/23 History hydrocodone 5 mg-acetaminophen 325 See Rx Instructions .Route .COMPLEX 09/24/23 09/24/23 Unknown History mg tablet pantoprazole 40 mg tablet,delayed 40 mg PO BID 09/24/23 09/24/23 09/23/23 History release prednisone 10 mg tablet 10 mg PO BID 09/24/23 09/24/23 09/23/23 History promethazine-DM 6.25 mg-15 mg/5 mL 5 ml PO Q4H PRN Cough 09/24/23 09/24/23 Unknown History oral syrup semaglutide 0.25 mg or 0.5 mg (2 0.25 mg SUBCUT DAILY 09/24/23 09/24/23 09/23/23 History mg/3 mL) subcutaneous pen injector (Ozempic) Allergies Allergy/AdvReac Type Severity Reaction Status Date / Time promethazine [From Phenergan] Allergy Unknown HARD TO Verified 09/24/23 03:05 BREATH Current Medications Generic Name Dose Route Start Last Admin Trade Name Freq PRN Reason Stop Dose Admin Acetaminophen 500 mg 09/24/23 06:23 09/25/23 03:53 Acetaminophen 500 Mg Tablet PO 500 mg Q4H PRN Administration fever Hydrocodone Bitart/Acetaminophen 1 tab 09/24/23 06:23 09/24/23 20:44 Hydrocodone-Acetaminophen 5-325 Mg Tablet PO 1 tab Q4H PRN Administration Pain Albuterol/Ipratropium 3 ml 09/24/23 06:23 09/24/23 07:53 Ipratropium-Albuterol 3 Ml Neb INHALATION 3 ml Q6H PRN Administration SHORTNESS OF BREATH Azithromycin 500 mg 09/24/23 09:00 09/25/23 09:16 Azithromycin 250 Mg Tablet PO Not Given DAILY GAYLE Protocol Enoxaparin Sodium 30 mg 09/24/23 08:00 09/25/23 08:18 Enoxaparin 30 Mg/0.3 Ml Syringe SUBCUT 30 mg Q12H GAYLE Administration Furosemide 60 mg 09/24/23 06:45 09/25/23 09:32 Furosemide 10 Mg/Ml Sdv 10ml IVP 60 mg Q12H GAYLE Administration Ceftriaxone Sodium 1,000 mg/ 50 mls @ 100 mls/hr 09/25/23 09:00 09/25/23 09:10 Sodium Chloride IV Infused DAILY GAYLE Infusion Protocol Sodium Chloride 1,000 mls @ 30 mls/hr 09/25/23 12:30 09/25/23 12:36 Sodium Chloride 0.9% IV 09/26/23 12:29 30 mls/hr .Q24H GAYLE Administration Insulin Human Lispro 0 unit 09/24/23 08:00 09/25/23 08:19 Insulin Lispro 100 Unit/1 Ml SUBCUT 4 unit TIDWM GAYLE Administration Protocol Lamotrigine 200 mg 09/24/23 10:00 09/25/23 09:16 Lamotrigine 100 Mg Tablet PO Not Given 1000 GAYLE Morphine Sulfate 2 mg 09/24/23 14:36 09/25/23 09:32 Morphine 4 Mg/Ml Sdv 1 Ml IVP 2 mg Q4H PRN Administration MODERATE PAIN Ondansetron HCl 4 mg 09/24/23 06:23 09/24/23 12:11 Ondansetron 2 Mg/Ml Sdv 2 Ml IVP 4 mg Q6H PRN Administration NAUSEA AND VOMITING Quetiapine Fumarate 50 mg 09/24/23 21:00 09/24/23 20:44 Quetiapine 25 Mg Tablet PO 50 mg BEDTIME GAYLE Administration Senna/Docusate Sodium 1 tab 09/24/23 09:00 09/25/23 09:16 Sennosides-Docusate Tablet PO Not Given DAILY GAYLE PFSH Acute 2 PFSH: Medical History Chest pain Psychiatric care Generalized anxiety disorder Post-traumatic stress disorder, chronic Opioid contract exists Encounter for long-term use of opiate analgesic Lumbar back pain Surgical History History of colonoscopy History of elbow surgery History of lumbar fusion History of neck surgery 3x LAP-BAND surgery status Family History Other CAD (coronary artery disease) Cancer Diabetes Hypertension Psychiatric illness Social History Smoking and tobacco/nicotine status: never used tobacco/nicotine Alcohol intake: never Substance/Drug Use: never Vitals/I&O/Wt Last Vital Signs Temp 101.8 F H 09/25/23 12:01 Pulse 86 09/25/23 12:01 Resp 18 09/25/23 12:01 BP 166/77 09/25/23 12:01 Pulse Ox 95 09/25/23 12:01 O2 Del Method Nasal Cannula 09/25/23 12:01 O2 Flow Rate 3 09/25/23 12:01 03/12/24 03/13/24 03/13/24 22:59 06:59 14:59 Intake Total 50 / 50 Balance 50 / 50 Weight last 48 hrs Weight 320 lb Weight 321 lb Weight 316 lb Physical Exam 2 Narrative: General : Patient is well developed , no acute distress, oriented x3 Head : Normal cephalic, a-traumatic. Ears : Pinnae and external canal are normal. Hearing is normal. Eyes : PERRLA, Sclera and injection are normal. No conjunctival discharge. Nose : Mucous membranes are without erythema. Throat : buccal mucosa is normal, gums are without significant recession or hypertrophy. Lungs : Equal chest rise bilaterally, no use of accessory muscles, trachea is midline. Cor : Rate and rhythm are normal. Abdomen : Soft, ND, NT, no g/r/m Extremities : No edema, no cyanosis or clubbing, dorsalis pedis pulses are present bilaterally, non-tender to palpation of calves. Upper extremities are normal bilaterally. Back : non-tender to palpation, no CVA tenderness. Neuro : CN II - XII intact, Upper and lower extremities have equal and full strength Data 09/25/23 04:22 09/25/23 04:22 Micro: Microbiology 09/24/23 08:59 Gram Stain - Final Sputum - Expectorated Sputum Sputum Culture - Preliminary 09/24/23 05:38 Blood Culture - Preliminary Blood NEGATIVE TO DATE 09/24/23 05:33 Blood Culture - Preliminary Blood NEGATIVE TO DATE A&P Assessment and plan (1) Dysphagia: (2) LAP-BAND surgery status: (3) Pneumonia: Qualifiers: Laterality: right Lung location: lower lobe of lung Pneumonia type: d ue to unspecified organism Qualified Code(s): J18.9 - Pneumonia, unspecified organism Plan EGD with possible balloon dilation The risks and benefits of the procedure, including bleeding, infection, intestinal perforation requiring surgery, missed lesion were explained to the patient. The patient is understanding of the risks and wishes to proceed. Medical management per hospitalist Coding Level of Care Code 07399 Diagnoses Dysphagia R13.10 LAP-BAND surgery status Z98.84 Pneumonia J18.9 Laterality: right Lung location: lower lobe of lung Pneumonia type: due to unspecified organism
--- NOTE | 2023-09-25 14:16 | P.TS_ITS ---
Transfer Summary Providers Date of Admission: 09/24/23 05:22 Date of Discharge/Transfer: 09/25/23 Attending Provider at Admission: Brandie Abarca MD Attending Provider at Transfer: Vanessa Andrews MD Primary Care Provider: Agustina Whiting DO Transfer Plans: Anticipated date of transfer: 09/25/23 . Diagnoses at Discharge Discharge Diagnosis (1) Dysphagia: Status: Acute (2) LAP-BAND surgery status: Status: Acute (3) Pneumonia: Status: Acute Qualifiers: Laterality: right Lung location: lower lobe of lung Pneumonia type: due to unspecified organism Qualified Code(s): J18.9 - Pneumonia, unspecified organism Reason for Visit Reason for Visit fever tight in lungs/ chest sob headache CHF Brief History: Sergei Lucas is a 53 year old male who presented today with chief complaint of worsening of shortness of breath. He carries history of diastolic CHF, states that he was prescribed oxygen but he does not use it on daily basis because he never required it, does not watch his sodium or fluid intake, stating that he drinks 4 L / 1 gallon of water every day, he is also on Lasix 160 mg daily stating that he also has 120 mg as a backup in case he is not able to make much urine, presented to the hospital for worsening of shortness of breath. Patient is stating that for last 3 to 4 weeks he has been having chest congestion, nonproductive cough, he recently had finished Medrol pack along antibiotics gi tate by Dr. Whiting. He has not noticed nausea, vomiting but endorsing fever 103 last night, endorsing chest heaviness which she is describing as something stuck in his chest which she is not able to clear up. Hospitalist was requested to admit him because he has failed his outpatient treatment and currently requiring 2 L of Hospital Course Hospital Course Patient presented with aspiration pneumonia. CRP 157, on ceftriaxone and azithromycin at this time. Requiring 2 L of nasal cannula which is his home baseline oxygen. He was slightly fluid overloaded as well for which she received IV Lasix during hospitalization. However first day CT chest was ordered which revealed diffuse bilateral groundglass and reticular nodular opacities throughout both lungs possibly representing viral pneumonia or aspiration pneumonia. Fluid-filled dilated esophagus small foci of increased density within dilated field filled esophagus. There may be medicinal tablets that are retained within the esophagus prior Lap-Band procedure. Patient tells me his Lap-Band was done in 2004 and he tried to get a revision done however there were some insurance issues at other hospital he was told that he does not need to have it removed. Unsure of the details as we do not have records from his previous hospitalization from where the Lap-Band was placed. We have requested records at this time. Patient does have recurrent fever during her hospital stay and there is a high clinical suspicion of recurrent aspiration secondary to esophageal dilatation. Patient has been made n.p.o. since admission. He is unable to swallow any tablets at this time or water. EGD was performed today which showed a moderate extrinsic compression at level of gastric cardia. Discussed with general surgery who performed the procedure. 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 Transfer to higher level of care has been recommended at this time. Patient consented to transfer. I will be calling to try to find a bed for patient at this time for bariatric surgery service. I will escalate his antibiotic coverage to vancomycin and Zosyn. Continue aspiration precautions, continue to maintain n.p.o. status at this time. This transfer summary will be addended once I have an acceptance. Physical Exam Narrative: Patient is awake and alert On room air this morning. Euvolemic. Seen in GI lab prior to endoscopy and earlier this morning. Resting comfortably in bed. However states that it is difficult to swallow anything at this time as it gets stuck in his chest. GCS 15 Pleasant cooperative Nonfocal neuroexam Morbidly obese S1, S2, muffled heart sounds due to body habitus. No edema bilateral lower extremities Abdomen soft nontender. Lungs mainly clear to auscultation however difficult to auscultate due to body habitus. TS Data Studies Completed and Pending Pending at discharge Category Date Time Status Blood Culture Stat Lab 09/24/23 05:38 Results Sputum Culture and Gram Stain Routine Lab 09/24/23 08:59 Results Pathology: Surgical [PTH] Routine Pth 09/25/23 13:55 Ordered Completed Studies During Hospitalization Category Date Time Status CT chest wo con [id number] Stat Cat Scan 09/24/23 07:24 Completed XR chest 1V portable [id number] Stat Exams 09/24/23 03:21 Completed Laboratory Last Values WBC 15.34 10^3/uL (3.29-11.43) H 09/25/23 04:22 RBC 4.03 10^6/uL (3.85-5.65) 09/25/23 04:22 Hgb 11.00 g/dL (11.27-16.99) L 09/25/23 04:22 Hct 36.2 % (37-53) L 09/25/23 04:22 MCV 89.8 fl (82-101) 09/25/23 04:22 MCH 27.3 pg (27-33) 09/25/23 04:22 MCHC 30.4 g/dL (30-55) 09/25/23 04:22 RDW 15.6 % (12.1-15.1) H 09/25/23 04:22 Plt Count 241 10^3/cmm (157-399) 09/25/23 04:22 MPV 10.1 fL (7.4-10.4) 09/25/23 04:22 Neut % (Auto) 75.9 % 09/25/23 04:22 Lymph % (Auto) 16.8 % 09/25/23 04:22 [place] % (Auto) 4.7 % 09/25/23 04:22 Eos % (Auto) 1.7 % 09/25/23 04:22 Baso % (Auto) 0.3 % 09/25/23 04:22 Neut # (Auto) 11.65 10^3/uL (1.8-7.7) H 09/25/23 04:22 Lymph # (Auto) 2.6 10^3/uL (0.8-4.8) 09/25/23 04:22 [place] # (Auto) 0.7 10^3/uL (0.2-0.9) 09/25/23 04:22 Eos # (Auto) 0.3 10^3/uL (0.0-0.8) 09/25/23 04:22 Baso # (Auto) 0.1 10^3/uL (0.0-0.1) 09/25/23 04:22 Nucleated RBC % (auto) 0 % 09/25/23 04:22 Nucleated RBCs # 0.0 /100WBC 09/25/23 04:22 PT 13.20 SECONDS (12.1-14.9) 09/24/23 03:16 INR 0.98 (0.8-1.2) 09/24/23 03:16 D-Dimer 0.58 ug/mLFEU (0-0.59) 09/24/23 03:16 Sodium 139 mmol/L (136-145) 09/25/23 04:22 Potassium 3.9 mmol/L (3.5-5.1) 09/25/23 04:22 Chloride 97 mmol/L (98-107) L 09/25/23 04:22 Carbon Dioxide 32 mmol/L (22-29) H 09/25/23 04:22 Anion Gap 13.9 (5-19) 09/25/23 04:22 BUN 31 mg/dL (6-20) H 09/25/23 04:22 Creatinine 1.3 mg/dL (0.7-1.2) H 09/25/23 04:22 GFR Calculation 57.7 mL/min (90-130) L 09/25/23 04:22 Glucose 148 mg/dL (65-115) H 09/25/23 04:22 POC Glucose 215 mg/dL (70-110) H 09/25/23 11:27 Estimat Average Glucose 174 09/24/23 03:16 Hemoglobin A1c 7.7 % (4.0-6.0) H 09/24/23 03:16 Calculated Osmolality 297 mOsm/kg (285-295) H 09/25/23 04:22 Lactic Acid 2.2 mmol/L (0.5-2.2) 09/24/23 03:16 Lactic Acid (Sepsis) 1.5 mmol/L (0.5-2.2) 09/24/23 07:55 Calcium 8.5 mg/dL (8.5-10.5) 09/25/23 04:22 Phosphorus 3.2 mg/dL (2.5-4.5) 09/25/23 04:22 Magnesium 2.2 mg/dL (1.7-2.3) 09/25/23 04:22 Total Bilirubin 0.4 mg/dL (0.15-1.2) 09/24/23 03:16 AST 16 U/L (0-40) 09/24/23 03:16 ALT 21 U/L (0-41) 09/24/23 03:16 Alkaline Phosphatase 104 U/L (40-130) 09/24/23 03:16 Troponin T Baseline 22 ng/L (0-15) H 09/24/23 03:16 Troponin T 120 Minute 25.60 ng/L (0-15) H 09/24/23 05:01 Delta Troponin T 3.60 ABS# (0-10) 09/24/23 05:01 Troponin T Hi Sens 6Hr 27.70 ng/L (0-15) H 09/24/23 09:04 Troponin T Hi Sens 6Hr Delta 5.70 ng/L (0-12) 09/24/23 09:04 C-Reactive Protein 157.1 mg/L (0.0-4.9) H 09/25/23 04:22 NT-Pro-B Natriuret Pep 271 pg/mL (0-125) H 09/24/23 03:16 Total Protein 5.6 g/dL (6.6-8.7) L 09/24/23 03:16 Albumin 3.4 g/dL (3.5-5.2) L 09/24/23 03:16 Globulin 2.2 g/dL (1.3-4.6) 09/24/23 03:16 Procalcitonin 0.12 ng/mL (0-0.5) 09/24/23 03:16 TSH 0.01 uIU/mL (0.27-4.20) L 09/24/23 03:16 Free T4 1.75 ng/dL (0.82-1.77) 09/24/23 03:16 Adenovirus (PCR) Not detected (NOT DETECT) 09/24/23 22:45 C. pneumoniae DNA (PCR) Not detected (NOT DETECT) 09/24/23 22:45 Coronavirus 229E (PCR) Not detected (NOT DETECT) 09/24/23 22:45 Human Metapneumovir PCR Not detected (NOT DETECT) 09/24/23 22:45 Influenza A (H1) PCR Not detected (NOT DETECT) 09/24/23 22:45 Influ A (H1/09) PCR Not detected (NOT DETECT) 09/24/23 22:45 Influenza A (H3) PCR Not detected (NOT DETECT) 09/24/23 22:45 Influenza Type A Ag negative (Negative) 09/24/23 03:28 Influenza Type A (PCR) Not detected (NOT DETECT) 09/24/23 22:45 Influenza Type B Ag negative (Negative) 09/24/23 03:28 Influenza Type B (PCR) Not detected (NOT DETECT) 09/24/23 22:45 M. pneumoniae (PCR) Not detected (NOT DETECT) 09/24/23 22:45 Parainfluenza 1 (PCR) Not detected (NOT DETECT) 09/24/23 22:45 Parainfluenza 2 (PCR) Not detected (NOT DETECT) 09/24/23 22:45 Parainfluenza 3 (PCR) Not detected (NOT DETECT) 09/24/23 22:45 Parainfluenza 4 (PCR) Not detected (NOT DETECT) 09/24/23 22:45 RSV Type A (PCR) Not detected (NOT DETECT) 09/24/23 22:45 RSV Type B (PCR) Not detected (NOT DETECT) 09/24/23 22:45 Entero/Rhino (PCR) Not detected (NOT DETECT) 09/24/23 22:45 SARS-CoV-2 (PCR) Not detected (NOT DETECT) 09/24/23 22:45 SARS-CoV-2 Ag (Rapid) negative (Negative) 09/24/23 03:28 Radiology Impressions Chest X-Ray 09/24/23 03:21 IMPRESSION: Right lung airspace infiltrates and borderline cardiomegaly, suggestive of mild edema with superimposed infection/pneumonia possible. Recent Clincial Data Last Vital Signs Temp 102.3 F H 09/25/23 14:05 Pulse 105 H 09/25/23 14:05 Resp 18 09/25/23 14:05 BP 144/99 09/25/23 14:05 Pulse Ox 90 09/25/23 14:05 O2 Del Method Nasal Cannula 09/25/23 14:05 O2 Flow Rate 4 09/25/23 14:05 Vital Signs Temp Pulse Resp BP Pulse Ox O2 Del Method O2 Flow Rate 09/25/23 14:05 4 09/25/23 14:05 102.3 F H 105 H 18 144/99 90 Nasal Cannula 4 09/25/23 12:01 101.8 F H 86 18 166/77 95 Nasal Cannula 3 09/25/23 11:24 100.7 F H 88 20 H 130/61 95 Nasal Cannula 09/25/23 08:03 87 16 92 Nasal Cannula 2 09/25/23 07:50 100.2 F H 75 16 127/58 91 BiPAP 09/25/23 05:21 100.6 F H 09/25/23 04:02 100.9 F H 84 18 163/75 92 CPAP Intake & Output/Weight 09/23/23 09/24/23 09/25/23 09/26/23 06:59 06:59 06:59 06:59 Intake Total 50 / 50 860 / 860 200 / 200 Output Total 0 / 0 Balance 50 / 50 860 / 860 200 / 200 Weight 143.335 kg 145.15 kg Vitals Last Vital Signs Temp 102.3 F H 09/25/23 14:05 Pulse 105 H 09/25/23 14:05 Resp 18 09/25/23 14:05 BP 144/99 09/25/23 14:05 Pulse Ox 90 09/25/23 14:05 O2 Del Method Nasal Cannula 09/25/23 14:05 O2 Flow Rate 4 09/25/23 14:05 TS Medications Medications Acetaminophen (Acetaminophen 500 Mg Tablet) 500 mg PO Q4H PRN PRN Reason: fever Last Admin: 09/25/23 03:53 Dose: 500 mg Hydrocodone Bitart/Acetaminophen (Hydrocodone-Acetaminophen 5-325 Mg Tablet) 1 tab PO Q4H PRN PRN Reason: Pain Last Admin: 09/24/23 20:44 Dose: 1 tab Albuterol/Ipratropium (Ipratropium-Albuterol 3 Ml Neb) 3 ml INHALATION Q6H PRN PRN Reason: SHORTNESS OF BREATH Last Admin: 09/24/23 07:53 Dose: 3 ml Azithromycin (Azithromycin 250 Mg Tablet) 500 mg PO DAILY GAYLE; Protocol Last Admin: 09/25/23 09:16 Dose: Not Given Enoxaparin Sodium (Enoxaparin 30 Mg/0.3 Ml Syringe) 30 mg SUBCUT Q12H GAYLE Last Admin: 09/25/23 08:18 Dose: 30 mg Furosemide (Furosemide 10 Mg/Ml Sdv 10ml) 60 mg IVP Q12H GAYLE Last Admin: 09/25/23 09:32 Dose: 60 mg Dextrose (D5w) 500 mls @ 0 mls/hr IV ONCE PRN; Protocol PRN Reason: Adult Acute Hypoglycemia Prot Dextrose (D10w) 125 mls @ 750 mls/hr IV PRN PRN; Protocol PRN Reason: Adult Acute Hypoglycemia Nursing Protocol Dextrose (D10w) 250 mls @ 1,000 mls/hr IV PRN PRN; Protocol PRN Reason: Adult Acute Hypoglycemia Nursing Protocol Ceftriaxone Sodium 1,000 mg/ (Sodium Chloride) 50 mls @ 100 mls/hr IV DAILY GAYLE; Protocol Last Infusion: 09/25/23 09:10 Dose: Infused Sodium Chloride (Sodium Chloride 0.9%) 1,000 mls @ 30 mls/hr IV .Q24H GAYLE Stop: 09/26/23 12:29 Last Admin: 09/25/23 12:36 Dose: 30 mls/hr Insulin Human Lispro (Insulin Lispro 100 Unit/1 Ml) 0 unit SUBCUT TIDWM [facility]; Protocol Last Admin: 09/25/23 08:19 Dose: 4 unit Lamotrigine (Lamotrigine 100 Mg Tablet) 200 mg PO 1000 GAYLE Last Admin: 09/25/23 09:16 Dose: Not Given Lidocaine HCl (Lidocaine 2% Viscous 15 Ml Udc) 1 ml TOPICAL PRN PRN PRN Reason: Anesthetic prior to IV start Lidocaine HCl (Lidocaine 1% Inj 20 Ml) 0.1 ml INTRADERMA PRN PRN PRN Reason: anesthetic prior to IV start Stop: 09/26/23 12:23 Midazolam HCl (Midazolam 1 Mg/Ml Inj 2 Ml) 2 mg IVP Q5M PRN PRN Reason: Preop Anxiety Morphine Sulfate (Morphine 4 Mg/Ml Sdv 1 Ml) 2 mg IVP Q4H PRN PRN Reason: MODERATE PAIN Last Admin: 09/25/23 09:32 Dose: 2 mg Morphine Sulfate (Morphine 4 Mg/Ml Sdv 1 Ml) 0 mg IVP Q5M PRN PRN Reason: Breakthrough Pain PACU PhaseII Ondansetron HCl (Ondansetron 2 Mg/Ml Sdv 2 Ml) 4 mg IVP Q6H PRN PRN Reason: NAUSEA AND VOMITING Last Admin: 09/24/23 12:11 Dose: 4 mg Ondansetron HCl (Ondansetron 2 Mg/Ml Sdv 2 Ml) 4 mg IVP Q15M PRN PRN Reason: Nausea/Vomiting PACU PHASE II Quetiapine Fumarate (Quetiapine 25 Mg Tablet) 50 mg PO BEDTIME [facility] Last Admin: 09/24/23 20:44 Dose: 50 mg Senna/Docusate Sodium (Sennosides-Docusate Tablet) 1 tab PO DAILY GAYLE Last Admin: 09/25/23 09:16 Dose: Not Given Discontinued Medications Acetaminophen (Acetaminophen 500 Mg Tablet) 1,000 mg PO ONCE ONE Stop: 09/24/23 03:23 Last Admin: 09/24/23 09:08 Dose: Not Given Aspirin (Aspirin 81 Mg Chew Tablet) 324 mg PO ONCE ONE Stop: 09/24/23 03:22 Last Admin: 09/24/23 03:39 Dose: 324 mg Benzocaine (Cetylpyridinium Lozenge) 1 each MUCOUS MEM ONCE ONE Stop: 09/25/23 12:25 Enoxaparin Sodium (Enoxaparin 30 Mg/0.3 Ml Syringe) 30 mg SUBCUT Q12H GAYLE Fentanyl (Fentanyl 50 Mcg/Ml Inj 2ml) Confirm Administered Dose 100 mcg .ROUTE .STK-MED ONE Stop: 09/25/23 12:49 Glycopyrrolate (Glycopyrrolate 0.2 Mg/Ml Sdv 2 Ml) Confirm Administered Dose 0.4 mg .ROUTE .STK-MED ONE Stop: 09/25/23 12:49 Ceftriaxone Sodium 2,000 mg/ (Sodium Chloride) 50 mls @ 100 mls/hr IV ONCE ONE; Protocol Stop: 09/24/23 05:38 Last Infusion: 09/24/23 06:48 Dose: Infused Lactated Ringer's (Lactated Ringers) 500 mls @ 999 mls/hr IV .Q31M ONE Stop: 09/24/23 07:57 Last Infusion: 09/24/23 09:30 Dose: Infused Ibuprofen (Ibuprofen 800 Mg Tablet) 800 mg PO ONCE ONE Stop: 09/24/23 03:32 Last Admin: 09/24/23 03:39 Dose: 800 mg Propofol (Propofol 10 Mg/Ml Sdv 20 Ml) Confirm Administered Dose 200 mg .ROUTE .STK-MED ONE Stop: 09/25/23 12:49 Rocuronium [place] (Rocuronium 10 Mg/Ml Inj 5ml) Confirm Administered Dose 50 mg .ROUTE .STK-MED ONE Stop: 09/25/23 12:49 Sugammadex Sodium (Sugammadex 200 Mg/2 Ml Sdv) Confirm Administered Dose 200 mg .ROUTE .STK-MED ONE Stop: 09/25/23 12:50 Allergies promethazine [From Phenergan] Allergy (Unknown, Verified 09/24/23 03:05) HARD TO BREATH Home Medications pregabalin 200 mg capsule (Lyrica) 200 mg PO Q12H 09/15/19 [History Confirmed 09/24/23] insulin human U-100 NPH-regulr 70-30 mix 100 unit/mL subcutaneous susp (Humulin 70/30 U-100 Insulin) 80 unit SUBCUT BID 06/20/20 [History Confirmed 09/24/23] montelukast 10 mg tablet 10 mg PO DAILY 07/24/21 [History Confirmed 09/24/23] Diabetic shoes with 3 inserts #1 ea 04/24/22 [Rx Confirmed 09/24/23] albuterol sulfate 90 mcg/actuation aerosol inhaler See Rx Instructions .Route .COMPLEX PRN Shortness Of Breath 05/01/22 [History Confirmed 09/24/23] cetirizine 10 mg tablet (Zyrtec) 10 mg PO DAILY 05/01/22 [History Confirmed 09/24/23] diphenhydramine HCl 25 mg tablet (Benadryl Allergy) 25 mg PO BID PRN Allergy Symptoms 05/01/22 [History Confirmed 09/24/23] lorazepam 1 mg tablet 1 mg PO DAILY PRN Anxiety 05/01/22 [History Confirmed 09/24/23] nystatin 100,000 unit/gram topical cream 1 applic topical BID 05/01/22 [History Confirmed 09/24/23] oxymetazoline 0.05 % nasal spray (Nasal [place] (oxymetazoline)) 2 spray intranasal Q12H PRN Nasal Congestion 05/01/22 [History Confirmed 09/24/23] atorvastatin 40 mg tablet 40 mg PO DAILY 10/31/22 [History Confirmed 09/24/23] metoprolol succinate 100 mg tablet,extended release 24 hr 50 mg (1/2 x 100 mg) PO DAILY #30 tabs 11/01/22 [Rx Confirmed 09/24/23] trazodone 300 mg tablet 300 mg PO BEDTIME #90 tabs 03/15/23 [Rx Confirmed 09/24/23] quetiapine 50 mg tablet (Seroquel) 50 mg PO .HS #30 tabs 07/30/23 [Rx Confirmed 09/24/23] citalopram 40 mg tablet See Rx Instructions .Route .COMPLEX #30 tabs 08/27/23 [Rx Confirmed 09/24/23] lamotrigine 200 mg tablet See Rx Instructions .Route .COMPLEX #30 tabs 08/27/23 [Rx Confirmed 09/24/23] prazosin 2 mg capsule See Rx Instructions .Route .COMPLEX #30 caps 08/27/23 [Rx Confirmed 09/24/23] prazosin 5 mg capsule See Rx Instructions .Route .COMPLEX #30 caps 08/27/23 [Rx Confirmed 09/24/23] amoxicillin 500 mg-potassium clavulanate 125 mg tablet 1 tab PO BID 09/24/23 [History Confirmed 09/24/23] dapagliflozin propanediol 10 mg tablet (Farxiga) 10 mg PO DAILY 09/24/23 [History Confirmed 09/24/23] furosemide 20 mg tablet 40 mg PO DAILY 09/24/23 [History Confirmed 09/24/23] hydrocodone 5 mg-acetaminophen 325 mg tablet See Rx Instructions .Route .COMPLEX 09/24/23 [History Confirmed 09/24/23] pantoprazole 40 mg tablet,delayed release 40 mg PO BID 09/24/23 [History Confirmed 09/24/23] prednisone 10 mg tablet 10 mg PO BID 09/24/23 [History Confirmed 09/24/23] promethazine-DM 6.25 mg-15 mg/5 mL oral syrup 5 ml PO Q4H PRN Cough 09/24/23 [History Confirmed 09/24/23] semaglutide 0.25 mg or 0.5 mg (2 mg/3 mL) subcutaneous pen injector (Ozempic) 0.25 mg SUBCUT DAILY 09/24/23 [History Confirmed 09/24/23] Discharge Plan Discharge Patient Disposition: Xfer Other Condition: Stable Prescriptions: No Action pregabalin [Lyrica] 200 mg capsule 200 mg PO Q12H montelukast 10 mg tablet 10 mg PO DAILY (DME) Diabetic shoes with 3 inserts See Rx Instructions .Route .MEDSUPPLY Qty: 1 0RF Rx Instructions: As directed by [facility] trazodone 300 mg tablet 300 mg PO BEDTIME Qty: 90 0RF quetiapine [Seroquel] 50 mg tablet 50 mg PO .HS Qty: 30 2RF citalopram 40 mg tablet See Rx Instructions .ROUTE .COMPLEX Qty: 30 11RF Dose Instruction: Take 1 tablet by mouth once daily at 10:00 PM Rx Instructions: Take 1 tablet by mouth once daily at 10:00 PM prazosin 2 mg capsule See Rx Instructions .ROUTE .COMPLEX Qty: 30 11RF Dose Instruction: Take 1 capsule by mouth at bedtime Rx Instructions: Take 1 capsule by mouth at bedtime along with 5 mg to=7mg total lamotrigine 200 mg tablet See Rx Instructions .ROUTE .COMPLEX Qty: 30 11RF Dose Instruction: Take 1 tablet by mouth once daily at 10:00 AM Rx Instructions: Take 1 tablet by mouth once daily at 10:00 AM prazosin 5 mg capsule See Rx Instructions .ROUTE .COMPLEX Qty: 30 11RF Dose Instruction: Take 1 capsule by mouth at bedtime Rx Instructions: Take 1 capsule by mouth at bedtime along with 2 mg to= 7mg total. Humulin 70/30 U-100 Insulin 100 unit/mL (70-30) suspension 80 unit SUBCUT BID Rx Instructions: per sliding scale cetirizine [Zyrtec] 10 mg Tablet 10 mg PO DAILY nystatin 100,000 unit/gram cream 1 applic TOPICAL BID diphenhydramine HCl [Benadryl Allergy] 25 mg Tablet 25 mg PO BID PRN (Reason: Allergy Symptoms) lorazepam 1 mg tablet 1 mg PO DAILY PRN (Reason: Anxiety) albuterol sulfate 90 mcg/actuation HFA aerosol inhaler See Rx Instructions .ROUTE .COMPLEX PRN (Reason: Shortness Of Breath) Rx Instructions: 2 puff inhaled every 4 to 6 hours as needed for shortness of breath oxymetazoline [Nasal [place] (oxymetazoline)] 0.05 % [place],Non-Aerosol 2 spray INTRANASAL Q12H PRN (Reason: Nasal Congestion) atorvastatin 40 mg tablet 40 mg PO DAILY metoprolol succinate 100 mg tablet extended release 24 hr 50 mg PO DAILY Qty: 30 0RF hydrocodone-acetaminophen 5-325 mg tablet See Rx Instructions .ROUTE .COMPLEX Rx Instructions: TAKE 1 TABLET BY MOUTH EVERY 4 TO 6 HOURS NEEDED FOR PAIN. furosemide 20 mg tablet 40 mg PO DAILY pantoprazole 40 mg tablet,delayed release (DR/EC) 40 mg PO BID promethazine-DM 6.25-15 mg/5 mL syrup 5 ml PO Q4H PRN (Reason: Cough) prednisone 10 mg tablet 10 mg PO BID amoxicillin-pot clavulanate 500-125 mg tablet 1 tab PO BID Ozempic 0.25 mg or 0.5 mg (2 mg/3 mL) pen injector 0.25 mg SUBCUT DAILY Farxiga 10 mg tablet 10 mg PO DAILY Referrals: Agustina Whiting DO [Primary Care Provider] - Patient Instructions: GI Discharge Instructions Transfer Attestations Time Spent in Transfer Care: greater than 30 min Quality Metrics Clinical Quality Measures [ No reported AMI, CVA or VTE this stay] Coding Level of Care Code 90514 Total time (in minutes) for Discharge: 60 Diagnoses Dysphagia R13.10 LAP-BAND surgery status Z98.84 Pneumonia J18.9 Laterality: right Lung location: lower lobe of lung Pneumonia type: due to unspecified organism
[2023-09-25] MEDS: ketorolac 30 mg/mL INJ 15 MG IVP (15:50)
[2023-09-25 16:26] LABS: Glucose Point of Care 175 mg/dL (70-110)
--- NOTE | 2023-09-25 20:16 | CTR_ITS ---
PROCEDURE INFORMATION: Exam: CT Chest Without Contrast; Diagnostic Exam date and time: 09/25/2023 11:07 PM Age: 53 years old Clinical indication: Fever TECHNIQUE: Imaging protocol: Diagnostic computed tomography of the chest without contrast. Radiation optimization: All CT scans at this facility use at least one of these dose optimization techniques: automated exposure control; mA and/or kV adjustment per patient size (includes targeted exams where dose is matched to clinical indication); or iterative reconstruction. COMPARISON: CT chest wo con [id number] 09/24/2023 8:52 AM RADIATION DOSE METRICS: Total DLP (mGy-cm): 1472.83 FINDINGS: Tubes, catheters and devices: Small amounts of fluid in the esophagus likely related to patient's lap band. Lungs: Moderate posterior lower lobe atelectatic change. Interstitial prominence and areas of tree-in-bud opacification in the right upper lobe and superior segment of the right lower lobe . Moderate bilateral posterior lower lobe atelectasis. Pleural spaces: No pleural effusion or pneumothorax. Heart: Heart size is within normal limits. There is no pericardial effusion or pericardial thickening. Coronary arteries: No coronary artery calcification. Lymph nodes: There are no enlarged mediastinal or axillary lymph nodes. The chinyere are not well evaluated due to lack of intravenous contrast. Calcified mediastinal and bilateral hilar lymph nodes are noted. Vasculature: Unremarkable. No aortic aneurysm. Bones/joints: No acute osseous abnormalities are seen. Subtle superior endplate height loss of T3 appears chronic. Cervical spinal hardware is partially visualized. Soft tissues: The soft tissues are within normal limits. Other findings: Bilateral calcified granulomata. PROCEDURE INFORMATION: Exam: CT Abdomen And Pelvis Without Contrast Exam date and time: 09/25/2023 11:07 PM Age: 53 years old Clinical indication: Fever TECHNIQUE: Imaging protocol: Computed tomography of the abdomen and pelvis without contrast. Radiation optimization: All CT scans at this facility use at least one of these dose optimization techniques: automated exposure control; mA and/or kV adjustment per patient size (includes targeted exams where dose is matched to clinical indication); or iterative reconstruction. COMPARISON: CT abdomen pelvis w con* [id number] 04/20/2023 8:48 PM RADIATION DOSE METRICS: Total DLP (mGy-cm): 1472.83 FINDINGS: Tubes, catheters and devices: A lap band is noted. Liver: The liver is normal. No hepatic masses are identified. Gallbladder and bile ducts: The gallbladder is normal. There is no ductal dilatation. Pancreas: The pancreas is atrophic without obvious abnormality. Spleen: Calcified splenic granulomata are noted. The spleen is otherwise normal. Adrenal glands: The adrenal glands are normal. Kidneys and ureters: No renal calcifications are identified. There is no hydronephrosis. Stomach and bowel: There is no large or small bowel obstruction. There is no evidence of bowel wall thickening. Appendix: A normal appendix is identified. Intraperitoneal space: No inflammatory changes are identified. There is no free fluid or fluid collection seen. There is no pneumoperitoneum. Vasculature: Atherosclerotic calcifications of the aorta are present. No aneurysm is identified. Lymph nodes: There are no enlarged retroperitoneal or mesenteric lymph nodes. Urinary bladder: The bladder is mildly distended but otherwise within normal limits. Reproductive: The prostate is grossly unremarkable. Bones/joints: Lumbosacral fusion hardware. No acute osseous abnormality seen. Soft tissues: Small bilateral inguinal hernias containing only fat are present. Tiny areas of gas in the subcutaneous fat likely related to subcutaneous injection. CT/[place] [id number] IMPRESSION: 1. Interstitial prominence and areas of tree-in-bud opacification in the right upper lobe and superior segment of the right lower lobe . Findings likely reflect atypical bronchogenic infection. 2. Old granulomatous disease. IMPRESSION: 1. No acute intra-abdominal or pelvic process. 2. Other nonemergent findings above.
[2023-09-25] MEDS: piperacillin-tazobactam 3.375 GM in sodium chloride 0.9% (plus) 50 ML IV (20:19)
[2023-09-25] MEDS: ondansetron 2 mg/ML SDV 2 mL 4 MG IVP (20:36)
[2023-09-25 21:11] LABS: Glucose Point of Care 151 mg/dL (70-110)
[2023-09-26] VITALS (10 sets, daily range): BP systolic 132–158; BP diastolic 67–78; PULSE 74–96; RESP 16–20; TEMP 36.9–37.9; O2SAT 81–96; BMI 48.6
[2023-09-26] MEDS: piperacillin-tazobactam 3.375 GM in sodium chloride 0.9% (plus) 50 ML IV ×3 (04:28→20:25)
[2023-09-26] MEDS: ondansetron 2 mg/ML SDV 2 mL 4 MG IVP ×2 (04:40→16:28)
[2023-09-26 05:45] LABS: Basophils # 0.1 10^3/uL (0.0-0.1); Basophils % 0.4 %; Eosinophils # 0.2 10^3/uL (0.0-0.8); Eosinophils % 1.4 %; Hematocrit 35.5 % (37-53); Lymphocytes # 1.7 10^3/uL (0.8-4.8); Lymphocytes % 12.7 %; Mean Corpuscular HGB Conc 31.3 g/dL (30-55); Mean Corpuscular Hemoglobin 27.5 pg (27-33); Mean Corpuscular Volume 88.1 fl (82-101); Mean Platelet Volume 9.7 fL (7.4-10.4); Monocytes # 0.7 10^3/uL (0.2-0.9); Monocytes % 5.2 %; Neutrophils # 10.56 10^3/uL (1.8-7.7); Neutrophils % 79.8 %; Nucleated Red Blood Cells % 0 %; Platelet Count 233 10^3/cmm (157-399); Red Blood Count 4.03 10^6/uL (3.85-5.65); Red Cell Distribution Width 15.2 % (12.1-15.1)
[2023-09-26 06:10] LABS: Anion Gap 17.9 (5-19); Blood Urea Nitrogen 26 mg/dL (6-20); Calcium 8.6 mg/dL (8.5-10.5); Carbon Dioxide 29 mmol/L (22-29); Chloride 99 mmol/L (98-107); Creatinine Clr Calc Pharmacy 99.1599; Glomerular Filtration Rate 63.3 mL/min (90-130); Glucose 190 mg/dL (65-115); Magnesium 2.2 mg/dL (1.7-2.3); Osmolality Calculated 304 mOsm/kg (285-295); Potassium 3.9 mmol/L (3.5-5.1); Sodium 142 mmol/L (136-145)
[2023-09-26] MEDS: ketorolac 30 mg/mL INJ 15 MG IVP (06:33)
[2023-09-26 06:53] LABS: Glucose Point of Care 219 mg/dL (70-110)
[2023-09-26] MEDS: enoxaparin 30 mg/0.3 mL Syringe SUBCUT ×2 (08:15→20:25)
[2023-09-26] MEDS: insulin lispro 100 unit/1 mL SUBCUT ×3 (08:15→17:46)
--- NOTE | 2023-09-26 08:52 | P.PN_ITS ---
Subjective 2 Subjective: Patient seen and examined. Tolerating liquid diet. Denies any abdominal pain. Vitals/I&O/Wt Last Vital Signs Temp 98.4 F 09/26/23 08:06 Pulse 96 09/26/23 08:06 Resp 16 09/26/23 08:06 BP 132/71 09/26/23 08:06 Pulse Ox 94 09/26/23 04:00 O2 Del Method Nasal Cannula, CPAP 09/26/23 04:00 O2 Flow Rate 4 09/25/23 14:25 09/25/23 09/26/23 09/26/23 22:59 06:59 14:59 Intake Total 50 / 400 410 / 410 Balance 50 / 400 410 / 410 Weight last 48 hrs Weight 316 lb 9 oz Weight 320 lb Weight 320 lb Physical Exam 2 Narrative: General: No acute distress, awake alert and oriented x 3 Abdomen: Soft, nontender, nondistended, no guarding rebound or masses Data 09/26/23 05:24 09/26/23 05:24 Micro: Microbiology 09/24/23 08:59 Gram Stain - Final Sputum - Expectorated Sputum Sputum Culture - Preliminary 09/24/23 05:38 Blood Culture - Preliminary Blood NEGATIVE TO DATE 09/24/23 05:33 Blood Culture - Preliminary Blood NEGATIVE TO DATE A&P Assessment and plan (1) LAP-BAND surgery status: (2) Esophageal stricture: Plan Attempted several times to drain his lap band from the access port, however there was no output. Tolerating full liquid diet. Status post EGD. The Lap- Band has migrated all the way up to the GE junction. I could not dilate past 18 [place]. Recommend lap band removal by bariatric surgeon. Medical management per hospitalist Attestations 2 Medical Necessity Statement*: Per primary Coding Level of Care Code 74047 Diagnoses LAP-BAND surgery status Z98.84 Esophageal stricture K22.2
[2023-09-26] MEDS: FUROsemide 10 mg/mL SDV 10mL 60 MG IVP ×2 (09:30→20:25)
[2023-09-26] MEDS: lamoTRIgine 100 mg Tablet 200 MG PO (09:42)
[2023-09-26] MEDS: sennosides-docusate Tablet 1 TAB PO (09:42)
[2023-09-26 11:27] LABS: Glucose Point of Care 201 mg/dL (70-110)
--- NOTE | 2023-09-26 13:28 | P.PN_ITS ---
Subjective 2 Subjective: seen this morning patient feels nauseated Vitals/I&O/Wt Last Vital Signs Temp 98.4 F 09/26/23 08:06 Pulse 81 09/26/23 09:39 Resp 18 09/26/23 09:39 BP 132/71 09/26/23 08:06 Pulse Ox 92 09/26/23 09:39 O2 Del Method CPAP 09/26/23 09:39 O2 Flow Rate 4 09/26/23 09:39 09/25/23 09/26/23 09/26/23 22:59 06:59 14:59 Intake Total 50 / 400 890 / 890 Balance 50 / 400 890 / 890 Weight last 48 hrs Weight 143.59 kg Weight 145.15 kg Weight 145.15 kg Physical Exam 2 Narrative: Patient is awake and alert On room air this morning. Euvolemic. GCS 15 Pleasant cooperative Nonfocal neuroexam Morbidly obese S1, S2, muffled heart sounds due to body habitus. No edema bilateral lower extremities Abdomen soft nontender. Lungs mainly clear to auscultation however difficult to auscultate due to body habitus. Data 09/26/23 05:24 09/26/23 05:24 Micro: Microbiology 09/24/23 08:59 Gram Stain - Final Sputum - Expectorated Sputum Sputum Culture - Final A&P Assessment and plan (1) Sepsis: (2) Community acquired pneumonia: (3) Insulin dependent type 2 diabetes mellitus: (4) Dyspnea: (5) Acute dyspnea: (6) Insomnia: (7) Acute kidney injury: (8) CHF exacerbation: Plan Sepsis related to aspiration pneumonia secondary to GE junction stricture due to Lap-Band #Diastolic CHF exacerbation #TERRANCE on CKD likely cardiorenal #Sleep apnea, intermittent uses oxygen at home 2 L ? Recently failed outpatient therapy finished Medrol Dosepak ? Placed on Ceftriaxone Erythromycin at Admission. However Having fevers therefore that was stopped and he was escalated to Zosyn. ? 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 ? Continue Zosyn for now ? He is strictly n.p.o. for solid food and only can have liquids at this time. ? All tablets need to be crushed. ? Underwent EGD and tablets removed from esophagus and a stricture was seen at GE junction secondary to migration of Lap-Band. Surgeon attempted to deflate Lap-Band however it is empty. ? Discussed with bariatric surgery at [facility]. Patient to see them as an outpatient to have been removed. ? Continue to treat for pneumonia in the hospital and once stable will discharge home to follow-up as an outpatient with bariatric surgery at [place]. ? Patient to discharge on full liquids when he goes home. ? Discussed all the above with the patient and he is in agreement ? Continue BiPAP for sleep apnea. #Diastolic CHF exacerbation Previous echo showed preserved ejection fraction with mild Patient does not watch his sodium or fluid intake Drinks 1 gallon of water Take 60 mg of Lasix at home ? I will de-escalate Lasix to 60 IV daily DVT prophylaxis Lovenox Considering his morbid obesity and BMI 48 I will give him Lovenox 30 mg every 12 hours Full liquid diet Plan for discharge within next 48 hours as long as patient remains afebrile. Will transition to oral antibiotics at discharge. Attestations 2 Medical Necessity Statement*: Continue to treat in the hospital for aspiration pneumonia. Plan for discharge possibly within next 48 hours. Diagnoses Sepsis A41.9 Community acquired pneumonia J18.9 Insulin dependent type 2 diabetes mellitus E11.9; Z79.4 Dyspnea R06.00 Acute dyspnea R06.00 Insomnia G47.00 Acute kidney injury N17.9 CHF exacerbation I50.9
[2023-09-26] MEDS: morphine 4 mg/mL SDV 1 mL 2 MG IVP (15:34)
[2023-09-26 17:12] LABS: Glucose Point of Care 169 mg/dL (70-110)
[2023-09-26] MEDS: ipratropium-albuterol 3 mL Neb INHALATION (17:52)
[2023-09-26] MEDS: quetiapine 25 mg Tablet 50 MG PO (20:25)
[2023-09-26 21:03] LABS: Glucose Point of Care 234 mg/dL (70-110)
[2023-09-26] MEDS: HYDROcodone-acetaminophen 5-325 mg Tablet 1 TAB PO (21:34)
[2023-09-27] VITALS: BP 156/77; PULSE 77; RESP 18; TEMP 36.5; O2SAT 92
[2023-09-27] MEDS: piperacillin-tazobactam 3.375 GM in sodium chloride 0.9% (plus) 50 ML IV (03:49)
[2023-09-27] MEDS: HYDROcodone-acetaminophen 5-325 mg Tablet 1 TAB PO (03:55)
[2023-09-27 04:00] VITALS: BP 160/82; PULSE 63; RESP 19; TEMP 37; O2SAT 90
[2023-09-27 06:09] LABS: Basophils # 0.1 10^3/uL (0.0-0.1); Basophils % 0.6 %; Eosinophils # 0.2 10^3/uL (0.0-0.8); Eosinophils % 2.1 %; Hematocrit 34.4 % (37-53); Lymphocytes # 1.7 10^3/uL (0.8-4.8); Lymphocytes % 21.4 %; Mean Corpuscular HGB Conc 30.5 g/dL (30-55); Mean Corpuscular Hemoglobin 26.9 pg (27-33); Mean Corpuscular Volume 88.2 fl (82-101); Mean Platelet Volume 10.2 fL (7.4-10.4); Monocytes # 0.5 10^3/uL (0.2-0.9); Monocytes % 6.2 %; Neutrophils # 5.58 10^3/uL (1.8-7.7); Neutrophils % 69.1 %; Nucleated Red Blood Cells % 0 %; Platelet Count 214 10^3/cmm (157-399); White Blood Count 8.08 10^3/uL (3.29-11.43)
[2023-09-27 06:43] LABS: Anion Gap 16.9 (5-19); Blood Urea Nitrogen 22 mg/dL (6-20); Calcium 8.6 mg/dL (8.5-10.5); Carbon Dioxide 32 mmol/L (22-29); Chloride 99 mmol/L (98-107); Creatinine Clr Calc Pharmacy 99.2626; Glomerular Filtration Rate 63.3 mL/min (90-130); Glucose 207 mg/dL (65-115); Osmolality Calculated 307 mOsm/kg (285-295); Potassium 3.9 mmol/L (3.5-5.1); Sodium 144 mmol/L (136-145)
[2023-09-27 07:49] LABS: Glucose Point of Care 282 mg/dL (70-110)
--- NOTE | 2023-09-27 07:52 | P.PN_ITS ---
Subjective 2 Subjective: Patient seen and examined. Tolerating liquid diet. Denies any abdominal pain Vitals/I&O/Wt Last Vital Signs Temp 98.6 F 09/27/23 04:00 Pulse 63 09/27/23 04:00 Resp 19 H 09/27/23 04:00 BP 160/82 09/27/23 04:00 Pulse Ox 90 09/27/23 04:00 O2 Del Method CPAP 09/27/23 04:00 O2 Flow Rate 3 09/26/23 18:01 09/26/23 09/27/23 09/27/23 22:59 06:59 14:59 Intake Total 290 / 1180 50 / 1230 Output Total 750 / 750 Balance -460 / 430 50 / 480 Weight last 48 hrs Weight 317 lb 2 oz Weight 316 lb 9 oz Weight 320 lb Physical Exam 2 Narrative: General: No acute distress, awake alert and oriented x 3 Abdomen: Soft, nontender, nondistended, no guarding rebound or masses Data 09/27/23 04:26 09/27/23 04:26 Micro: Microbiology 09/24/23 08:59 Gram Stain - Final Sputum - Expectorated Sputum Sputum Culture - Final A&P Assessment and plan (1) LAP-BAND surgery status: (2) Esophageal stricture: Plan Attempted several times to drain his lap band from the access port, however there was no output. Tolerating full liquid diet. Status post EGD. The Lap- Band has migrated all the way up to the GE junction. I could not dilate past 18 [place]. Recommend lap band removal by bariatric surgeon. Surgically stable for discharge Medical management per hospitalist Attestations 2 Medical Necessity Statement*: Per primary Coding Level of Care Code 26383 Diagnoses LAP-BAND surgery status Z98.84 Esophageal stricture K22.2
[2023-09-27 08:00] VITALS: BP 147/78; PULSE 79; RESP 16; TEMP 37.1; O2SAT 91
[2023-09-27] MEDS: acetaminophen 500 mg Tablet PO (08:12)
[2023-09-27] MEDS: enoxaparin 30 mg/0.3 mL Syringe SUBCUT (08:13)
[2023-09-27] MEDS: insulin lispro 100 unit/1 mL SUBCUT ×2 (08:13→12:39)
[2023-09-27] MEDS: sennosides-docusate Tablet 1 TAB PO (08:14)
[2023-09-27] MEDS: FUROsemide 10 mg/mL SDV 10mL 60 MG IVP (08:14)
--- NOTE | 2023-09-27 09:41 | PC.SOCIAL ---
IMM Update Pg. 2 of IMM Updated and reviewed with patient. Copy provided. Initialed, dated, timed, copy placed in chart.
[2023-09-27 09:46] LABS: C Reactive Protein 74.4 mg/L (0.0-4.9)
[2023-09-27] MEDS: lamoTRIgine 100 mg Tablet 200 MG PO (10:36)
[2023-09-27] MEDS: ipratropium-albuterol 3 mL Neb INHALATION (11:04)
[2023-09-27 11:06] VITALS: PULSE 78; RESP 18; O2SAT 94
[2023-09-27 11:33] LABS: Glucose Point of Care 153 mg/dL (70-110)
[2023-09-27 11:57] VITALS: BP 136/77; PULSE 81; RESP 16; TEMP 36.4; O2SAT 92
--- NOTE | 2023-09-27 12:03 | P.DS_ITS ---
Discharge Providers Date of Admission: 09/24/23 05:22 Date of Discharge: September 27, 2023 Attending Provider at Admission: Brandie Abarca MD Attending Provider at Discharge: Vanessa Andrews MD Primary Care Provider: Agustina Whiting DO Diagnoses at Discharge Discharge Diagnosis (1) LAP-BAND surgery status: Status: Acute (2) Esophageal stricture: Status: Acute Reason for Visit Reason for Visit: fever tight in lungs/ chest sob headache CHF Hospital Course Hospital Course Patient presented with aspiration pneumonia. CRP 157, on ceftriaxone and azithromycin at this time. Requiring 2 L of nasal cannula which is his home baseline oxygen. He was slightly fluid overloaded as well for which she received IV Lasix during hospitalization. However first day CT chest was ordered which revealed diffuse bilateral groundglass and reticular nodular opacities throughout both lungs possibly representing viral pneumonia or aspiration pneumonia. Fluid-filled dilated esophagus small foci of increased density within dilated field filled esophagus. There may be medicinal tablets that are retained within the esophagus prior Lap-Band procedure. Patient tells me his Lap-Band was done in 2004 and he tried to get a revision done however there were some insurance issues at other hospital he was told that he does not need to have it removed. Unsure of the details as we do not have records from his previous hospitalization from where the Lap-Band was placed. We have requested records at this time. Patient does have recurrent fever during her hospital stay and there is a high clinical suspicion of recurrent aspiration secondary to esophageal dilatation. Patient has been made n.p.o. since admission. He is unable to swallow any tablets at this time or water. EGD was performed today which showed a moderate extrinsic compression at level of gastric cardia. Discussed with general surgery who performed the procedure. 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 Transfer to higher level of care has been recommended at this time. Patient consented to transfer. I will be calling to try to find a bed for patient at this time for bariatric surgery service. I will escalate his antibiotic coverage to vancomycin and Zosyn. Continue aspiration precautions, continue to maintain n.p.o. status at this time. Surgeon attempted to deflate Lap-Band however it is empty. ? Discussed with bariatric surgery at [facility]. Patient to see them as an outpatient to have been removed. ? Continue to treat for pneumonia in the hospital and once stable will discharge home to follow-up as an outpatient with bariatric surgery at [place]. ? Patient to discharge on full liquids when he goes home. ? Discussed all the above with the patient and he is in agreement Patient will be discharged home on a full liquid diet. I will also give him antibiotic for another 10 days to complete course. He has been advised to stay off of any kind of solid food. Patient is able to tolerate pills crushed within the liquid. I asked him to continue to do the same. Will try to set up an appointment for him with bariatric surgery outpatient as the lab I need to be removed. I believe the cause of his issues with recurrent respiration from Lap-Band stricture. He was unable to swallow pills earlier prior to admission and therefore had a heart failure exacerbation. He was diuresed with Lasix IV during hospital stay. Patient is now euvolemic. All questions answered. Has been afebrile and feeling better. Physical Exam Narrative: Patient is awake and alert On room air this morning. Euvolemic. GCS 15 Pleasant cooperative Nonfocal neuroexam Morbidly obese S1, S2, muffled heart sounds due to body habitus. No edema bilateral lower extremities Abdomen soft nontender. Lungs mainly clear to auscultation however difficult to auscultate due to body habitus. Discharge Data Studies Completed and Pending Completed Studies During Hospitalization Category Date Time Status CT chest abdomen pelvis [[place] [id number] Cat Scan 09/25/23 20:16 Completed ] Urgent CT chest wo con [id number] Stat Cat Scan 09/24/23 07:24 Completed XR chest 1V portable [id number] Stat Exams 09/24/23 03:21 Completed Pending at discharge Category Date Time Status Blood Culture Stat Lab 09/24/23 05:38 Results Pathology: Surgical [PTH] Routine Pth 09/25/23 13:55 Received Radiology Impressions Chest X-Ray 09/24/23 03:21 IMPRESSION: Right lung airspace infiltrates and borderline cardiomegaly, suggestive of mild edema with superimposed infection/pneumonia possible. Chest/Abdomen/Pelvis CT 09/25/23 20:16 IMPRESSION: 1. Interstitial prominence and areas of tree-in-bud opacification in the right upper lobe and superior segment of the right lower lobe . Findings likely reflect atypical bronchogenic infection. 2. Old granulomatous disease. IMPRESSION: 1. No acute intra-abdominal or pelvic process. 2. Other nonemergent findings above. Laboratory Results WBC 8.08 10^3/uL (3.29-11.43) 09/27/23 04: RBC 3.90 10^6/uL (3.85-5.65) 09/27/23 04:26 Hgb 10.50 g/dL (11.27-16.99) L 09/27/23 04:26 Hct 34.4 % (37-53) L 09/27/23 04:26 MCV 88.2 fl (82-101) 09/27/23 04:26 MCH 26.9 pg (27-33) L 09/27/23 04:26 MCHC 30.5 g/dL (30-55) 09/27/23 04:26 RDW 15.0 % (12.1-15.1) 09/27/23 04:26 Plt Count 214 10^3/cmm (157-399) 09/27/23 04:26 MPV 10.2 fL (7.4-10.4) 09/27/23 04:26 Neut % (Auto) 69.1 % 09/27/23 04:26 Lymph % (Auto) 21.4 % 09/27/23 04:26 [place] % (Auto) 6.2 % 09/27/23 04:26 Eos % (Auto) 2.1 % 09/27/23 04:26 Baso % (Auto) 0.6 % 09/27/23 04:26 Neut # (Auto) 5.58 10^3/uL (1.8-7.7) 09/27/23 04:26 Lymph # (Auto) 1.7 10^3/uL (0.8-4.8) 09/27/23 04:26 [place] # (Auto) 0.5 10^3/uL (0.2-0.9) 09/27/23 04:26 Eos # (Auto) 0.2 10^3/uL (0.0-0.8) 09/27/23 04:26 Baso # (Auto) 0.1 10^3/uL (0.0-0.1) 09/27/23 04:26 Nucleated RBC % (auto) 0 % 09/27/23 04:26 Nucleated RBCs # 0.0 /100WBC 09/27/23 04:26 PT 13.20 SECONDS (12.1-14.9) 09/24/23 03:16 INR 0.98 (0.8-1.2) 09/24/23 03:16 D-Dimer 0.58 ug/mLFEU (0-0.59) 09/24/23 03:16 Sodium 144 mmol/L (136-145) 09/27/23 04:26 Potassium 3.9 mmol/L (3.5-5.1) 09/27/23 04:26 Chloride 99 mmol/L (98-107) 09/27/23 04:26 Carbon Dioxide 32 mmol/L (22-29) H 09/27/23 04:26 Anion Gap 16.9 (5-19) 09/27/23 04:26 BUN 22 mg/dL (6-20) H 09/27/23 04:26 Creatinine 1.2 mg/dL (0.7-1.2) 09/27/23 04:26 GFR Calculation 63.3 mL/min (90-130) L 09/27/23 04:26 Glucose 207 mg/dL (65-115) H 09/27/23 04:26 POC Glucose 153 mg/dL (70-110) H 09/27/23 11:30 Estimat Average Glucose 174 09/24/23 03:16 Hemoglobin A1c 7.7 % (4.0-6.0) H 09/24/23 03:16 Calculated Osmolality 307 mOsm/kg (285-295) H 09/27/23 04:26 Lactic Acid 2.2 mmol/L (0.5-2.2) 09/24/23 03:16 Lactic Acid (Sepsis) 1.5 mmol/L (0.5-2.2) 09/24/23 07:55 Calcium 8.6 mg/dL (8.5-10.5) 09/27/23 04:26 Phosphorus 3.2 mg/dL (2.5-4.5) 09/25/23 04:22 Magnesium 2.2 mg/dL (1.7-2.3) 09/26/23 05:24 Total Bilirubin 0.4 mg/dL (0.15-1.2) 09/24/23 03:16 AST 16 U/L (0-40) 09/24/23 03:16 ALT 21 U/L (0-41) 09/24/23 03:16 Alkaline Phosphatase 104 U/L (40-130) 09/24/23 03:16 Troponin T Baseline 22 ng/L (0-15) H 09/24/23 03:16 Troponin T 120 Minute 25.60 ng/L (0-15) H 09/24/23 05:01 Delta Troponin T 3.60 ABS# (0-10) 09/24/23 05:01 Troponin T Hi Sens 6Hr 27.70 ng/L (0-15) H 09/24/23 09:04 Troponin T Hi Sens 6Hr Delta 5.70 ng/L (0-12) 09/24/23 09:04 C-Reactive Protein 74.4 mg/L (0.0-4.9) H 09/27/23 04:26 NT-Pro-B Natriuret Pep 271 pg/mL (0-125) H 09/24/23 03:16 Total Protein 5.6 g/dL (6.6-8.7) L 09/24/23 03:16 Albumin 3.4 g/dL (3.5-5.2) L 09/24/23 03:16 Globulin 2.2 g/dL (1.3-4.6) 09/24/23 03:16 Procalcitonin 0.12 ng/mL (0-0.5) 09/24/23 03:16 TSH 0.01 uIU/mL (0.27-4.20) L 09/24/23 03:16 Free T4 1.75 ng/dL (0.82-1.77) 09/24/23 03:16 Adenovirus (PCR) Not detected (NOT DETECT) 09/24/23 22:45 C. pneumoniae DNA (PCR) Not detected (NOT DETECT) 09/24/23 22:45 Coronavirus 229E (PCR) Not detected (NOT DETECT) 09/24/23 22:45 Human Metapneumovir PCR Not detected (NOT DETECT) 09/24/23 22:45 Influenza A (H1) PCR Not detected (NOT DETECT) 09/24/23 22:45 Influ A (H1/09) PCR Not detected (NOT DETECT) 09/24/23 22:45 Influenza A (H3) PCR Not detected (NOT DETECT) 09/24/23 22:45 Influenza Type A Ag negative (Negative) 09/24/23 03:28 Influenza Type A (PCR) Not detected (NOT DETECT) 09/24/23 22:45 Influenza Type B Ag negative (Negative) 09/24/23 03:28 Influenza Type B (PCR) Not detected (NOT DETECT) 09/24/23 22:45 M. pneumoniae (PCR) Not detected (NOT DETECT) 09/24/23 22:45 Parainfluenza 1 (PCR) Not detected (NOT DETECT) 09/24/23 22:45 Parainfluenza 2 (PCR) Not detected (NOT DETECT) 09/24/23 22:45 Parainfluenza 3 (PCR) Not detected (NOT DETECT) 09/24/23 22:45 Parainfluenza 4 (PCR) Not detected (NOT DETECT) 09/24/23 22:45 RSV Type A (PCR) Not detected (NOT DETECT) 09/24/23 22:45 RSV Type B (PCR) Not detected (NOT DETECT) 09/24/23 22:45 Entero/Rhino (PCR) Not detected (NOT DETECT) 09/24/23 22:45 SARS-CoV-2 (PCR) Not detected (NOT DETECT) 09/24/23 22:45 SARS-CoV-2 Ag (Rapid) negative (Negative) 09/24/23 03:28 Vitals Last Vital Signs Temp 97.5 F L 09/27/23 11:57 Pulse 81 09/27/23 11:57 Resp 16 09/27/23 11:57 BP 136/77 09/27/23 11:57 Pulse Ox 92 09/27/23 11:57 O2 Del Method Room Air 09/27/23 11:57 O2 Flow Rate 3 09/26/23 18:01 Discharge Plan Discharge Patient Disposition: Xfer Other Condition: Stable Prescriptions: New insulin lispro [Humalog U-100 Insulin] 100 unit/mL Solution See Rx Instructions .ROUTE .COMPLEX Qty: 5 0RF Rx Instructions: 141-180 4u,181-220 6u,221-260 8u,261-300 10u,301-350 12u, 351-400 14u, >400 16u levofloxacin 250 mg/10 mL solution 750 mg PO DAILY 7 Days Qty: 200 0RF Continued pregabalin [Lyrica] 200 mg capsule 200 mg PO Q12H montelukast 10 mg tablet 10 mg PO DAILY (DME) Diabetic shoes with 3 inserts See Rx Instructions .Route .MEDSUPPLY Qty: 1 0RF Rx Instructions: As directed by [facility] trazodone 300 mg tablet 300 mg PO BEDTIME Qty: 90 0RF quetiapine [Seroquel] 50 mg tablet 50 mg PO .HS Qty: 30 2RF citalopram 40 mg tablet See Rx Instructions .ROUTE .COMPLEX Qty: 30 11RF Dose Instruction: Take 1 tablet by mouth once daily at 10:00 PM Rx Instructions: Take 1 tablet by mouth once daily at 10:00 PM lamotrigine 200 mg tablet See Rx Instructions .ROUTE .COMPLEX Qty: 30 11RF Dose Instruction: Take 1 tablet by mouth once daily at 10:00 AM Rx Instructions: Take 1 tablet by mouth once daily at 10:00 AM cetirizine [Zyrtec] 10 mg Tablet 10 mg PO DAILY nystatin 100,000 unit/gram cream 1 applic TOPICAL BID diphenhydramine HCl [Benadryl Allergy] 25 mg Tablet 25 mg PO BID PRN (Reason: Allergy Symptoms) lorazepam 1 mg tablet 1 mg PO DAILY PRN (Reason: Anxiety) albuterol sulfate 90 mcg/actuation HFA aerosol inhaler See Rx Instructions .ROUTE .COMPLEX PRN (Reason: Shortness Of Breath) Rx Instructions: 2 puff inhaled every 4 to 6 hours as needed for shortness of breath oxymetazoline [Nasal [place] (oxymetazoline)] 0.05 % [place],Non-Aerosol 2 spray INTRANASAL Q12H PRN (Reason: Nasal Congestion) atorvastatin 40 mg tablet 40 mg PO DAILY metoprolol succinate 100 mg tablet extended release 24 hr 50 mg PO DAILY Qty: 30 0RF hydrocodone-acetaminophen 5-325 mg tablet See Rx Instructions .ROUTE .COMPLEX Rx Instructions: TAKE 1 TABLET BY MOUTH EVERY 4 TO 6 HOURS NEEDED FOR PAIN. pantoprazole 40 mg tablet,delayed release (DR/EC) 40 mg PO BID promethazine-DM 6.25-15 mg/5 mL syrup 5 ml PO Q4H PRN (Reason: Cough) Farxiga 10 mg tablet 10 mg PO DAILY Changed furosemide 20 mg tablet 60 mg PO DAILY 30 Days Qty: 30 0RF Held prazosin 2 mg capsule See Rx Instructions .ROUTE .COMPLEX Qty: 30 11RF Hold Instructions: see pcp Dose Instruction: Take 1 capsule by mouth at bedtime Rx Instructions: Take 1 capsule by mouth at bedtime along with 5 mg to=7mg total prazosin 5 mg capsule See Rx Instructions .ROUTE .COMPLEX Qty: 30 11RF Hold Instructions: see pcp Dose Instruction: Take 1 capsule by mouth at bedtime Rx Instructions: Take 1 capsule by mouth at bedtime along with 2 mg to= 7mg total. Humulin 70/30 U-100 Insulin 100 unit/mL (70-30) suspension 80 unit SUBCUT BID Hold Instructions: see pcp Rx Instructions: per sliding scale Discontinued prednisone 10 mg tablet 10 mg PO BID amoxicillin-pot clavulanate 500-125 mg tablet 1 tab PO BID Ozempic 0.25 mg or 0.5 mg (2 mg/3 mL) pen injector 0.25 mg SUBCUT DAILY Discharge Orders: Discharge Order (Routine); Ordered 09/27/23 Ordered By: Vanessa Andrews Referrals: raad ponce [Other] - 1-3 days (lap band removal causing stricture) Agustina Whiting DO [Primary Care Provider] - 10/02/23 2:00 pm Discharge Diet: As Directed and Full LIquid Discharge Activity: Resume usual activity Patient Instructions: Levofloxacin (By mouth) (Levaquin, Levaquin Leva-manuel), Insulin Lispro Protamine/Insulin Lispro (By injection), Full Liquid Diet (GEN), GI Discharge Instructions Activity Restrictions/Additional Instructions: Please follow-up with [facility] bariatric surgery clinic with Dr. Ponce as an outpatient for lap band removal. Please crush her tablets and take them with your liquid as you have been doing in the hospital. Do not take any solid food. Please stop taking Ozempic as it can cause gastroparesis worsening your current symptoms at this time. I have stopped your insulin 80 units twice daily since your intake has been decreased than before. I have started you on insulin sliding scale. Instructions are on the prescription. Please check your blood sugar and use sliding scale insulin accordingly. Please follow-up with your primary care doctor for further medication adjustm ents as scheduled. If you have worsening symptoms or development of new symptoms please return to ER. Discharge Attestations Time Spent in Discharge Care*: greater than 30 min Quality Metrics Clinical Quality Measures [ No reported AMI, CVA or VTE this stay] Coding Level of Care Code 70019 Total time (in minutes) for Discharge: 45 Diagnoses LAP-BAND surgery status Z98.84 Esophageal stricture K22.2
--- NOTE | 2023-09-27 17:10 | PC.NURSE ---
Discussed discharge medications, continued, stopped and held medications with patient and . Answered all questions for patient. Verbalized understanding.
[2023-09-27 17:14] VITALS: BP 136/77; PULSE 81; RESP 16; TEMP 36.4; O2SAT 92
== END 2023-09-27 15:31 | disposition home or self-care (01) | DRG 871 ==
LOC: ER 05:37 → MEDSURG 05:48
PROVIDERS: Surgery; Admitting Provider Internal Medicine; Emergency Provider Internal Medicine; PCP Family Medicine; Visit Provider Internal Medicine
PROC: 0DJ08ZZ Inspection of Upper Intestinal Tract, Via Natural or Artificial Opening Endoscopic (ICD-10-PCS; CPT 43235; principal; 2023-09-25 13:15)
DX: A41.9 Sepsis, unspecified organism (principal); I50.33 Acute on chronic diastolic (congestive) heart failure; J69.0 Pneumonitis due to inhalation of food and vomit; N17.9 Acute kidney failure, unspecified; Z68.42 Body mass index [BMI] 45.0-49.9, adult; K95.09 Other complications of gastric band procedure; Z99.81 Dependence on supplemental oxygen; R13.10 Dysphagia, unspecified; F41.1 Generalized anxiety disorder; F43.12 Post-traumatic stress disorder, chronic; Z98.1 Arthrodesis status; M54.50 Low back pain, unspecified; E11.22 Type 2 diabetes mellitus with diabetic chronic kidney disease; N18.9 Chronic kidney disease, unspecified; Z79.4 Long term (current) use of insulin; G47.00 Insomnia, unspecified; G47.30 Sleep apnea, unspecified; K31.89 Other diseases of stomach and duodenum; K22.2 Esophageal obstruction; E66.01 Morbid (severe) obesity due to excess calories; Y83.8 Other surgical procedures as the cause of abnormal reaction of the patient, or of later complication, without mention of misadventure at the time of the procedure
CPT/HCPCS: 36415; 36416; 43239; 43249; 71045; 71250; 74176; 80048; 80053; 82962; 83036; 83605; 83735; 83880; 84100; 84145; 84439; 84443; 84484; 85025; 85378; 85610; 86140; 87040; 87070; 87205; 87426; 87486; 87581; 87633; 87804; 88305; 92526; 92610; 93005; 94640; 96365; 96372; 99285; J0696; J1650; J1815; J1885; J1940; J2270; J2405; J2543; J2704; J3010; J3490; J7030; J7120; Q0144

== ENCOUNTER 2023-09-28 13:16 | Emergency (ER) | payer MEDICARE, OTHER, SELFPAY ==
[2023-09-28 13:28] VITALS: BP 188/62; PULSE 60; RESP 17; TEMP 36.7; O2SAT 94
[2023-09-28] MEDS: fluorescein 1 mg Strip EYE-RIGHT (13:46)
[2023-09-28] MEDS: tetracaine 0.5% Op Soln 4 mL Btl 1 DROP EYE-RIGHT (13:46)
[2023-09-28 13:58] VITALS: BP 188/62; PULSE 60; RESP 17; TEMP 36.7; O2SAT 94
--- NOTE | 2023-09-28 13:58 | ED_ITS ---
HPI - Eye Problem General: Chief complaint: Eye Problems Stated complaint: something in right eye Time Seen by Provider: 09/28/23 13:32 Source: patient Mode of arrival: ambulatory History of Present Illness: 53-year-old male presents emergency room complaining of discomfort in his right eye and mildly reddened states that began 3 days ago had a burning pain rated replate no specific mechanism of injury was not using any tools or grinding sanding etc. It is causing itching and discomfort but he has not had any blurring or loss of vision. No fever sweats chills no redness or inflammation around the eye or rash around the eye itself Associated symptoms: Denies cough, fever(s), headache(s), nausea, neck pain, numbness, rhinorrhea, short of breath, vomiting or weakness Treatments Prior to Arrival: none Review of Systems Const: Denies: fever(s) Card: Denies: chest pain Resp: Denies: dyspnea GI: Denies: nausea or vomiting Musc: Denies: neck pain Skin/Breast: Denies: rash Neuro: Denies: headache(s) PFSH ED PFSH: Medical History Chest pain Psychiatric care Generalized anxiety disorder Post-traumatic stress disorder, chronic Opioid contract exists Encounter for long-term use of opiate analgesic Lumbar back pain Surgical History History of colonoscopy History of elbow surgery History of lumbar fusion History of neck surgery 3x LAP-BAND surgery status Family History Other CAD (coronary artery disease) Cancer Diabetes Hypertension Psychiatric illness Social History Smoking and tobacco/nicotine status: never used tobacco/nicotine Alcohol intake: never Substance/Drug Use: never Physical Exam Narrative: EXAM NARRATIVE: Examination of the right eye eversion of the eyelid there is no foreign bodies present no significant gross abnormalities are noted. I was Neca[place] is tetracaine reviewed fluorescein dye applied no increased uptake in the cornea under magnification there is no evidence of foreign body. Pupils equal react light extraocular's are intact mild redness of the sclera Course Vital Signs: Vital signs: Vital Signs Temperature 98.1 F 09/28/23 13:58 Pulse Rate 60 09/28/23 13:58 Respiratory Rate 17 09/28/23 13:58 Blood Pressure 188/62 09/28/23 13:58 Pulse Oximetry 94 09/28/23 13:58 Oxygen Delivery Me thod Room Air 09/28/23 13:28 MDM - Eye Problem Medical Decision Making No foreign bodies or corneal abrasions. Discharge patient home have him start on sulfa/prednisone drops 1 drop 4 times a day if not improving in next 2 days follow-up with ophthalmology optometry Differential Diagnosis Likely conjunctivitis Medical Records I reviewed the patient's medical records. Lab Data I reviewed the patient's lab results. No radiology studies performed this visit Discharge Plan Discharge Patient Disposition: Home Clinical Impression: Acute pain in right eye Condition: Stable Prescriptions: New sulfacetamide-prednisolone 10 %-0.23 % (0.25 %) drops 1 drp ophthalmic (eye) Q6H 5 Days Qty: 5 0RF No Action pregabalin [Lyrica] 200 mg capsule 200 mg PO Q12H montelukast 10 mg tablet 10 mg PO DAILY (DME) Diabetic shoes with 3 inserts See Rx Instructions .Route .MEDSUPPLY Qty: 1 0RF Rx Instructions: As directed by [facility] trazodone 300 mg tablet 300 mg PO BEDTIME Qty: 90 0RF quetiapine [Seroquel] 50 mg tablet 50 mg PO .HS Qty: 30 2RF citalopram 40 mg tablet See Rx Instructions .ROUTE .COMPLEX Qty: 30 11RF Dose Instruction: Take 1 tablet by mouth once daily at 10:00 PM Rx Instructions: Take 1 tablet by mouth once daily at 10:00 PM prazosin 2 mg capsule See Rx Instructions .ROUTE .COMPLEX Qty: 30 11RF Hold Instructions: see pcp Dose Instruction: Take 1 capsule by mouth at bedtime Rx Instructions: Take 1 capsule by mouth at bedtime along with 5 mg to=7mg total lamotrigine 200 mg tablet See Rx Instructions .ROUTE .COMPLEX Qty: 30 11RF Dose Instruction: Take 1 tablet by mouth once daily at 10:00 AM Rx Instructions: Take 1 tablet by mouth once daily at 10:00 AM prazosin 5 mg capsule See Rx Instructions .ROUTE .COMPLEX Qty: 30 11RF Hold Instructions: see pcp Dose Instruction: Take 1 capsule by mouth at bedtime Rx Instructions: Take 1 capsule by mouth at bedtime along with 2 mg to= 7mg total. Humulin 70/30 U-100 Insulin 100 unit/mL (70-30) suspension 80 unit SUBCUT BID Hold Instructions: see pcp Rx Instructions: per sliding scale cetirizine [Zyrtec] 10 mg Tablet 10 mg PO DAILY nystatin 100,000 unit/gram cream 1 applic TOPICAL BID diphenhydramine HCl [Benadryl Allergy] 25 mg Tablet 25 mg PO BID PRN (Reason: Allergy Symptoms) lorazepam 1 mg tablet 1 mg PO DAILY PRN (Reason: Anxiety) albuterol sulfate 90 mcg/actuation HFA aerosol inhaler See Rx Instructions .ROUTE .COMPLEX PRN (Reason: Shortness Of Breath) Rx Instructions: 2 puff inhaled every 4 to 6 hours as needed for shortness of breath oxymetazoline [Nasal [place] (oxymetazoline)] 0.05 % [place],Non-Aerosol 2 spray INTRANASAL Q12H PRN (Reason: Nasal Congestion) atorvastatin 40 mg tablet 40 mg PO DAILY metoprolol succinate 100 mg tablet extended release 24 hr 50 mg PO DAILY Qty: 30 0RF hydrocodone-acetaminophen 5-325 mg tablet See Rx Instructions .ROUTE .COMPLEX Rx Instructions: TAKE 1 TABLET BY MOUTH EVERY 4 TO 6 HOURS NEEDED FOR PAIN. pantoprazole 40 mg tablet,delayed release (DR/EC) 40 mg PO BID promethazine-DM 6.25-15 mg/5 mL syrup 5 ml PO Q4H PRN (Reason: Cough) Farxiga 10 mg tablet 10 mg PO DAILY furosemide 20 mg tablet 60 mg PO DAILY 30 Days Qty: 30 0RF Humalog U-100 Insulin 100 unit/mL Solution See Rx Instructions .ROUTE .COMPLEX Qty: 5 0RF Rx Instructions: 141-180 4u,181-220 6u,221-260 8u,261-300 10u,301-350 12u, 351-400 14u, >400 16u levofloxacin 250 mg/10 mL solution 750 mg PO DAILY 7 Days Qty: 200 0RF Discharge Orders: Discharge ED (Routine); Ordered 09/28/23 Ordered By: David Daniels Referrals: Agustina Whiting DO [Primary Care Provider] - Discharge Diet: Usual diet Discharge Activity: Increase activity as tolerated Patient Instructions: Opioid Safety, Pain Management Activity Restrictions/Additional Instructions: Thank you for choosing [facility] for your healthcare needs today. Please realize this is an emergency room and that we are providing you with a medical screening exam and this may not be complete and all inclusive of all the testing and or work up that you may need to determine your ailment or severity of your illness. It is very important that you follow up as instructed or that you return to the Emergency Department should you have concerns or if your condition changes or worsens in any way. Examination of your eye today does not show any retained foreign bodies or corneal abrasions. You are given antibiotic drops to use 1 drop 4 times daily. If not improving in the next 4 to 5 days recheck with optometry or ophthalmology. Coding Level of Care Code ED Transformation Specialist for Carito Arreguin
== END 2023-09-28 14:04 | disposition home or self-care (01) ==
PROVIDERS: Emergency Provider Family Medicine; PCP Family Medicine
DX: H57.11 Ocular pain, right eye (principal); Z79.4 Long term (current) use of insulin
CPT/HCPCS: 99283

== ENCOUNTER 2023-10-11 01:03 | Emergency (ER) | payer MEDICARE, OTHER, SELFPAY ==
[2023-10-11 01:35] VITALS: BP 122/69; PULSE 84; RESP 18; TEMP 36.7; O2SAT 94
--- NOTE | 2023-10-11 01:52 | XRR_ITS ---
PROCEDURE INFORMATION: Exam: XR Left Knee Exam date and time: 10/11/2023 1:58 AM Age: 53 years old Clinical indication: Pain; Knee; Left; Additional info: Pain/injury TECHNIQUE: Imaging protocol: Radiologic exam of the left knee. Views: 3 views. COMPARISON: CR XR knee LT 3V* [id number] 01/27/2019 10:17 PM FINDINGS: Bones/joints: Patellofemoral osteophyte generation. Medial compartment osteophyte generation. Mild joint space narrowing of the patellofemoral medial joint space.. Small articular effusion. Soft tissues: Normal. XR/XR knee LT 3V* [id number] IMPRESSION: Small articular effusion without acute or aggressive osseous abnormality.
[2023-10-11 02:24] VITALS: BP 127/89; O2SAT 91
--- NOTE | 2023-10-11 02:32 | PC.NURSE ---
request patient be placed on Oxygen as he wears it at home when sleeping. Pt placed on 2l n/c.
--- NOTE | 2023-10-11 03:02 | ED_ITS ---
HPI - Extremity Problem General: Chief complaint: Extremity Injury, Lower Stated complaint: Left knee pain Time Seen by Provider: 10/11/23 01:39 History of Present Illness: 53-year-old male presents emergency depa rtment complaints of left knee pain. He states that approximate 1 week ago he hit his knee on the end of the bed. He states he also attempted to get in his truck and when he went to step up in his truck he also hit his knee there and felt like he was going to give out. He states that he has not had any previous knee surgery. He states his pain is a 5 out of 10 he is able to ambulate on it. He states he did take hydrocodone around 1600 today without significant improvement. He denies numbness or tingling to the extremity. He denies redness or other injuries. Review of Systems General: Reports: 10 or more systems reviewed and unremarkable except in HPI and below Musc: Reports: extremity pain and extremity swelling [facility] PFSH: Medical History Chest pain Psychiatric care Generalized anxiety disorder Post-traumatic stress disorder, chronic Opioid contract exists Encounter for long-term use of opiate analgesic Lumbar back pain Surgical History History of colonoscopy History of elbow surgery History of lumbar fusion History of neck surgery 3x LAP-BAND surgery status Family History Other CAD (coronary artery disease) Cancer Diabetes Hypertension Psychiatric illness Social History Smoking and tobacco/nicotine status: never used tobacco/nicotine Alcohol intake: never Substance/Drug Use: never Physical Exam Narrative: EXAM NARRATIVE: Constitutional: the patient appears well nourished and of normal development. Vital signs as documented. No acute distress at present. Alert and oriented-to person, place, time and situation. Head, eyes, ears, nose, mouth, throat: Normocephalic, atraumatic. Pupils-equal, round, reactive to light. No scleral icterus. Normal-appearing external ears. Normal appearing nasal turbinates, no drainage. No obvious oral lesions, posterior oropharynx without erythema or exudates. Neck: Supple, trachea is midline, no lymphadenopathy, no jugular venous distension, thyromegaly, or carotid bruits. Carotid upstrokes are brisk bilaterally. Lungs: clear to auscultation to all lung chacon. Symmetrical rise and fall of chest, no obvious signs of increased work of breathing at present. Cardiac: Regular rate and rhythm, positive S1, S2. No murmurs, rubs or gallops that I can appreciate Abdomen: Soft, non-tender to palpation, normal active bowel sounds to all quadrants. No palpable masses, no organomegaly and abdominal bruits. Extremities: 2+ pulses in the upper extremities that are equal bilaterally, 2+ pulses in the lower extremities that are equal bilaterally. Non-edematous. Moves all extremities well, sensation to all extremities are noted. Slightly tender to palpation to the medial aspect and patella Skin: Warm, dry, intact. Course Vital Signs: Vital signs: Vital Signs Temperature 98.0 F 10/11/23 01:35 Pulse Rate 75 10/11/23 03:17 Respiratory Rate 18 10/11/23 03:17 Blood Pressure 108/56 10/11/23 03:17 Pulse Oximetry 98 10/11/23 03:17 Oxygen Delivery Me thod Room Air 10/11/23 02:24 MDM - Extremity (Nontraumatic) Medical Decision Making Physical exam completed and documented I provided the patient x-ray here in the emergency department with no acute findings, I did provide the patient Toradol and advised him to continue taking his hydrocodone and follow-up with his primary care provider or orthopedics. Medical Records I reviewed the patient's medical records. Lab Data Radiology Impressions Knee X-Ray 10/11/23 01:52 IMPRESSION: Small articular effusion without acute or aggressive osseous abnormality. All radiology interpretation(s) finalized by discharge Discharge Plan Discharge Patient Disposition: Home Clinical Impression: Acute pain of left knee Strain of left knee Qualifiers: Encounter type: initial encounter Qualified Code(s): S86.912A - Strain of unspecified muscle(s) and tendon(s) at lower leg level, left leg, initial encounter Condition: Stable Prescriptions: No Action pregabalin [Lyrica] 200 mg capsule 200 mg PO Q12H montelukast 10 mg tablet 10 mg PO DAILY (DME) Diabetic shoes with 3 inserts See Rx Instructions .Route .MEDSUPPLY Qty: 1 0RF Rx Instructions: As directed by [facility] trazodone 300 mg tablet 300 mg PO BEDTIME Qty: 90 0RF quetiapine [Seroquel] 50 mg tablet 50 mg PO .HS Qty: 30 2RF citalopram 40 mg tablet See Rx Instructions .ROUTE .COMPLEX Qty: 30 11RF Dose Instruction: Take 1 tablet by mouth once daily at 10:00 PM Rx Instructions: Take 1 tablet by mouth once daily at 10:00 PM prazosin 2 mg capsule See Rx Instructions .ROUTE .COMPLEX Qty: 30 11RF Hold Instructions: see pcp Dose Instruction: Take 1 capsule by mouth at bedtime Rx Instructions: Take 1 capsule by mouth at bedtime along with 5 mg to=7mg total lamotrigine 200 mg tablet See Rx Instructions .ROUTE .COMPLEX Qty: 30 11RF Dose Instruction: Take 1 tablet by mouth once daily at 10:00 AM Rx Instructions: Take 1 tablet by mouth once daily at 10:00 AM prazosin 5 mg capsule See Rx Instructions .ROUTE .COMPLEX Qty: 30 11RF Hold Instructions: see pcp Dose Instruction: Take 1 capsule by mouth at bedtime Rx Instructions: Take 1 capsule by mouth at bedtime along with 2 mg to= 7mg total. Humulin 70/30 U-100 Insulin 100 unit/mL (70-30) suspension 80 unit SUBCUT BID Hold Instructions: see pcp Rx Instructions: per sliding scale cetirizine [Zyrtec] 10 mg Tablet 10 mg PO DAILY nystatin 100,000 unit/gram cream 1 applic TOPICAL BID diphenhydramine HCl [Benadryl Allergy] 25 mg Tablet 25 mg PO BID PRN (Reason: Allergy Symptoms) lorazepam 1 mg tablet 1 mg PO DAILY PRN (Reason: Anxiety) albuterol sulfate 90 mcg/actuation HFA aerosol inhaler See Rx Instructions .ROUTE .COMPLEX PRN (Reason: Shortness Of Breath) Rx Instructions: 2 puff inhaled every 4 to 6 hours as needed for shortness of breath oxymetazoline [Nasal [place] (oxymetazoline)] 0.05 % [place],Non-Aerosol 2 spray INTRANASAL Q12H PRN (Reason: Nasal Congestion) atorvastatin 40 mg tablet 40 mg PO DAILY metoprolol succinate 100 mg tablet extended release 24 hr 50 mg PO DAILY Qty: 30 0RF hydrocodone-acetaminophen 5-325 mg tablet See Rx Instructions .ROUTE .COMPLEX Rx Instructions: TAKE 1 TABLET BY MOUTH EVERY 4 TO 6 HOURS NEEDED FOR PAIN. pantoprazole 40 mg tablet,delayed release (DR/EC) 40 mg PO BID promethazine-DM 6.25-15 mg/5 mL syrup 5 ml PO Q4H PRN (Reason: Cough) Farxiga 10 mg tablet 10 mg PO DAILY furosemide 20 mg tablet 60 mg PO DAILY 30 Days Qty: 30 0RF Humalog U-100 Insulin 100 unit/mL Solution See Rx Instructions .ROUTE .COMPLEX Qty: 5 0RF Rx Instructions: 141-180 4u,181-220 6u,221-260 8u,261-300 10u,301-350 12u, 351-400 14u, >400 16u Discharge Orders: Discharge ED (Routine); Ordered 10/11/23 Ordered By: Israel Hidalgo Referrals: Seymour Walter DO [Physician] - Agustina Whiting DO [Primary Care Provider] - Discharge Diet: Usual diet Discharge Activity: Limit activity as instructed Patient Instructions: Opioid Safety, Pain Management Activity Restrictions/Additional Instructions: Activity Restrictions/Additional Instructions: Thank you for choosing [facility] for your healthcare needs today. Please realize that you were seen in the Emergency Department and that we are providing you with an emergency medical screening exam and this may not be a co mplete and all inclusive of all the testing and or medical work-up that you may need to determine your ailment or severity of your illness. It is very important that you follow-up as instructed with your Primary care provider or Specialist for additional evaluation and to discuss your medical treatment plan. You may return to the Emergency Department should you have concerns or if your condition changes or worsens in any way. Coding Level of Care Code ED Workforce Development Assistant for Carito Arreguin
[2023-10-11] MEDS: ketorolac 60 mg/2 mL INJ IM (03:09)
[2023-10-11 03:17] VITALS: BP 108/56; PULSE 75; RESP 18; O2SAT 98
== END 2023-10-11 03:26 | disposition home or self-care (01) ==
PROVIDERS: Emergency Provider Internal Medicine; PCP Family Medicine
DX: S86.912A Strain of unspecified muscle(s) and tendon(s) at lower leg level, left leg, initial encounter (principal); Z79.4 Long term (current) use of insulin; W22.09XA Striking against other stationary object, initial encounter
CPT/HCPCS: 73562; 96372; 99284; J1885

== ENCOUNTER 2023-11-08 22:01 | Emergency (ER) | payer MEDICARE, SELFPAY ==
[2023-11-08 22:02] VITALS: BP 205/85; PULSE 70; RESP 20; TEMP 36.7; O2SAT 95
[2023-11-08 22:55] VITALS: BP 166/101; PULSE 60; RESP 18; O2SAT 98
[2023-11-08] MEDS: sodium chloride 0.9% 1,000 ML 999 ML IV (23:31)
[2023-11-08] MEDS: diphenhydrAMINE 50 mg/mL SDV 1mL IVP (23:31)
[2023-11-08] MEDS: ketorolac 60 mg/2 mL INJ 30 MG IVP (23:32)
[2023-11-08] MEDS: dexamethasone 10 mg/mL INJ 8 MG IVP (23:34)
[2023-11-08] MEDS: metoclopramide 5 mg/mL SDV 2 mL 10 MG IVP (23:35)
[2023-11-08 23:53] LABS: Rapid Strep A Test Negative (Negative)
[2023-11-09 00:11] VITALS: BP 159/72; PULSE 61; RESP 18; O2SAT 97
--- NOTE | 2023-11-09 00:39 | W.ED.DENTAL ---
Documented by User: YUNIEL Nolan 11/09/23 00:43 HPI - Dental/Oral General: Chief complaint: Dental/Oral Stated complaint: Mouth pain Time Seen by Provider: 11/08/23 22:56 Source: patient Mode of arrival: ambulatory Limitations: no limitations History of Present Illness: Patient is a 53-year-old male presenting to the emergency department complaining of facial pain onset 2-3 days. Patient reports he is status post lap band procedure on Saturday, and has had the onset of facial pain since. He initially believed it was due to the intubation causing his pain as it also was associated with a sore throat, however the facial pain has gotten so excruciating that he has been unable to do his daily functions. He is currently on Levaquin as protocol status post abdominal surgery. He also reports a history of chronic allergies and recurrent bacterial sinusitis. He does note that this feels similar to a sinus infection though he also has a history of migraines and this feels similar as well. He is currently reporting a migraine cocktail. He is noting a productive cough as well as some nasal congestion and drainage. Associated symptoms: Reports ear or mastoid pain; Denies fever(s) Review of Systems General: Reports: 10 or more systems reviewed and unremarkable except in HPI and below Const: Denies: fever(s), chills or fatigue Eyes: Denies: change in vision ENMT: Reports: throat pain, dental pain, ear or mastoid pain, nasal discharge, nasal congestion and sinus pain Card: Denies: chest pain, palpitations, swelling of feet/ankles or lightheadedness Resp: Denies: dyspnea, productive cough or wheezing GI: Denies: abdominal pain, nausea, vomiting, diarrhea or constipation : Denies: flank pain, difficulty urinating, dysuria or urinary frequency Musc: Denies: neck pain, back pain or joint pain Skin/Breast: Denies: rash Neuro: Reports: headache(s); Denies: numbness in extremities or weakness in extremities PFS ED PFSH: Medical History Chest pain Psychiatric care Generalized anxiety disorder Post-traumatic stress disorder, chronic Opioid contract exists Encounter for long-term use of opiate analgesic Lumbar back pain Surgical History History of colonoscopy History of elbow surgery History of lumbar fusion History of neck surgery 3x LAP-BAND surgery status Family History Other CAD (coronary artery disease) Cancer Diabetes Hypertension Psychiatric illness Social History Smoking and tobacco/nicotine status: never used tobacco/nicotine Alcohol intake: never Substance/Drug Use: never Physical Exam Const: COMMON NORMALS: no acute distress and healthy appearing GENERAL APPEARANCE: cooperative, comfortable and well developed NUTRITIONAL APPEARANCE: obese morbidly obese HENMT: COMMON NORMALS: normocephalic, atraumatic, hearing grossly normal bilaterally, external ears normal, EAC's normal, TM's normal bilaterally, Normal external nose present and Normal nasal mucous membranes and turbinates present HEAD & SCALP: normal to inspection, normocephalic and atraumatic FACE & SINUS: normal facial exam and sinus tenderness maxillary NOSE: Normal external nose present, Normal nares present, No nasal polyps present and Normal nasal mucous membranes and turbinates present EXTERNAL EAR: Yes external ears normal EXTERNAL AUDITORY CANAL: EAC's normal TYMPANIC MEMBRANE: TM's normal bilaterally MOUTH: Normal oral and palatal mucosa present THROAT: tonsils normal and postnasal drainage Eye: COMMON NORMALS: EOMs intact bilaterally, conjunctivae normal and normal visual chacon by confrontation GENERAL EYE: appearance normal, both eyes and all related structures CONJUNCTIVA: Yes conjunctivae normal Neck/C-Spine: COMMON NORMALS: full ROM, no lymphadenopathy, supple and no meningeal signs GENERAL: Yes normal visual inspection Chest: COMMONS NORMALS: normal inspection of the chest Resp: COMMON NORMALS: normal respiratory effort and clear to auscultation bilaterally EFFORT & INSPECTION: Yes able to speak in complete sentences AUSCULTATION: clear to auscultation bilaterally Cardio: COMMON NORMALS: regular rate, regular rhythm, S1 normal heart sound present and S2 normal heart sound present RATE: regular rate RHYTHM: regular rhythm HEART SOUNDS: S1 normal heart sound present, S2 normal heart sound present, no gallops, no murmurs and no rubs Extremity: COMMON NORMALS: normal to inspection, full ROM and capillary refill normal Neuro: MENINGEAL SIGNS: Yes no meningeal signs Skin: COMMON NORMALS: no rashes or lesions noted GENERAL SKIN EXAM: no rashes or lesions noted Course Vital Signs: Vital signs: Vital Signs Temperature 98.1 F 11/08/23 22:02 Pulse Rate 61 11/09/23 00:11 Respiratory Rate 18 11/09/23 00:11 Blood Pressure 159/72 11/09/23 00:11 Pulse Oximetry 97 11/09/23 00:11 Oxygen Delivery Me thod Room Air 11/08/23 22:02 MDM - Dental/Oral Medical Decision Making Patient seen and evaluated due to facial pain since surgery on Saturday. Notes history of sinus factions and allergies, noting that this feels similar but also the headache feels similar to a migraine. Vitals on arrival essentially unremarkable aside from an elevated blood pressure, which is reduced upon recheck to 159/72. He did request a migraine cocktail, and does note some relief after receiving his medications. My oropharynx exam was essentially unremarkable and there is no oropharyngeal swelling or suspicious lesions. Patient is currently on Levaquin, and I instructed him to continue this and follow-up with primary care next week. I do believe his symptoms related to his chronic allergies and sinusitis, as his Levaquin should continue to treat this. I will also prescribe him a course of steroids and encouraged him to take his Flonase and Claritin-D at home. He states that he will do this and follow-up as instructed. He is ready to go home and return precautions are given. Lab Data Laboratory Results Group A Strep Rapid Negative (Negative) 11/08/23 23:35 No radiology studies performed this visit Discharge Plan Discharge Patient Disposition: Home Clinical Impression: Bacterial sinusitis Allergies Qualifiers: Encounter type: initial encounter Qualified Code(s): T78.40XA - Allergy, unspecified, initial encounter Condition: Stable Prescriptions: New prednisone 20 mg tablet 60 mg PO ONCE 5 Days Qty: 15 0RF No Action pregabalin [Lyrica] 200 mg capsule 200 mg PO Q12H montelukast 10 mg tablet 10 mg PO DAILY (DME) Diabetic shoes with 3 inserts See Rx Instructions .Route .MEDSUPPLY Qty: 1 0RF Rx Instructions: As directed by [facility] trazodone 300 mg tablet 300 mg PO BEDTIME Qty: 90 0RF citalopram 40 mg tablet See Rx Instructions .ROUTE .COMPLEX Qty: 30 11RF Dose Instruction: Take 1 tablet by mouth once daily at 10:00 PM Rx Instructions: Take 1 tablet by mouth once daily at 10:00 PM prazosin 2 mg capsule See Rx Instructions .ROUTE .COMPLEX Qty: 30 11RF Hold Instructions: see pcp Dose Instruction: Take 1 capsule by mouth at bedtime Rx Instructions: Take 1 capsule by mouth at bedtime along with 5 mg to=7mg total lamotrigine 200 mg tablet See Rx Instructions .ROUTE .COMPLEX Qty: 30 11RF Dose Instruction: Take 1 tablet by mouth once daily at 10:00 AM Rx Instructions: Take 1 tablet by mouth once daily at 10:00 AM prazosin 5 mg capsule See Rx Instructions .ROUTE .COMPLEX Qty: 30 11RF Hold Instructions: see pcp Dose Instruction: Take 1 capsule by mouth at bedtime Rx Instructions: Take 1 capsule by mouth at bedtime along with 2 mg to= 7mg total. quetiapine [Seroquel] 50 mg tablet 50 mg PO .HS Qty: 30 2RF Humulin 70/30 U-100 Insulin 100 unit/mL (70-30) suspension 80 unit SUBCUT BID Hold Instructions: see pcp Rx Instructions: per sliding scale cetirizine [Zyrtec] 10 mg Tablet 10 mg PO DAILY nystatin 100,000 unit/gram cream 1 applic TOPICAL BID diphenhydramine HCl [Benadryl Allergy] 25 mg Tablet 25 mg PO BID PRN (Reason: Allergy Symptoms) lorazepam 1 mg tablet 1 mg PO DAILY PRN (Reason: Anxiety) albuterol sulfate 90 mcg/actuation HFA aerosol inhaler See Rx Instructions .ROUTE .COMPLEX PRN (Reason: Shortness Of Breath) Rx Instructions: 2 puff inhaled every 4 to 6 hours as needed for shortness of breath oxymetazoline [Nasal [place] (oxymetazoline)] 0.05 % [place],Non-Aerosol 2 spray INTRANASAL Q12H PRN (Reason: Nasal Congestion) atorvastatin 40 mg tablet 40 mg PO DAILY metoprolol succinate 100 mg tablet extended release 24 hr 50 mg PO DAILY Qty: 30 0RF hydrocodone-acetaminophen 5-325 mg tablet See Rx Instructions .ROUTE .COMPLEX Rx Instructions: TAKE 1 TABLET BY MOUTH EVERY 4 TO 6 HOURS NEEDED FOR PAIN. pantoprazole 40 mg tablet,delayed release (DR/EC) 40 mg PO BID promethazine-DM 6.25-15 mg/5 mL syrup 5 ml PO Q4H PRN (Reason: Cough) Farxiga 10 mg tablet 10 mg PO DAILY furosemide 20 mg tablet 60 mg PO DAILY 30 Days Qty: 30 0RF Humalog U-100 Insulin 100 unit/mL Solution See Rx Instructions .ROUTE .COMPLEX Qty: 5 0RF Rx Instructions: 141-180 4u,181-220 6u,221-260 8u,261-300 10u,301-350 12u, 351-400 14u, >400 16u Discharge Orders: Discharge ED (Routine); Ordered 11/09/23 Ordered By: Eros Frausto Referrals: Agustina Whiting DO [Primary Care Provider] - Discharge Diet: Usual diet Discharge Activity: Increase activity as tolerated Patient Instructions: Rhinosinusitis (ED), Allergies (ED) Activity Restrictions/Additional Instructions: Continue taking Levaquin. Prednisone as prescribed. Follow-up with primary care next week as discussed. Return if you develop any new or worsening symptoms. Coding Level of Care Code ED Animal Rescuer for Chg Fwd Documented by User: David Daniels DO 11/13/23 09:04 HPI - Dental/Oral General: Chief complaint: Dental/Oral Stated complaint: Mouth pain Time Seen by Provider: 11/08/23 22:56 PFSH ED PFSH: Medical History Chest pain Psychiatric care Generalized anxiety disorder Post-traumatic stress disorder, chronic Opioid contract exists Encounter for long-term use of opiate analgesic Lumbar back pain Surgical History History of colonoscopy History of elbow surgery History of lumbar fusion History of neck surgery 3x LAP-BAND surgery status Family History Other CAD (coronary artery disease) Cancer Diabetes Hypertension Psychiatric illness Social History Smoking and tobacco/nicotine status: never used tobacco/nicotine Alcohol intake: never Substance/Drug Use: never Course Vital Signs: Vital signs: Vital Signs Temperature 98.1 F 11/08/23 22:02 Pulse Rate 61 11/09/23 00:11 Respiratory Rate 18 11/09/23 00:11 Blood Pressure 159/72 11/09/23 00:11 Pulse Oximetry 97 11/09/23 00:11 Oxygen Delivery Me thod Room Air 11/08/23 22:02 MDM - Dental/Oral Medical Decision Making Patient seen and evaluated due to facial pain since surgery on Saturday. Notes history of sinus factions and allergies, noting that this feels similar but also the headache feels similar to a migraine. Vitals on arrival essentially unremarkable aside from an elevated blood pressure, which is reduced upon recheck to 159/72. He did request a migraine cocktail, and does note some relief after receiving his medications. My oropharynx exam was essentially unremarkable and there is no oropharyngeal swelling or suspicious lesions. Patient is currently on Levaquin, and I instructed him to continue this and follow-up with primary care next week. I do believe his symptoms related to his chronic allergies and sinusitis, as his Levaquin should continue to treat this. I will also prescribe him a course of steroids and encouraged him to take his Flonase and Claritin-D at home. He states that he will do this and follow-up as instructed. He is ready to go home and return precautions are given. Chart reviewed Lab Data Laboratory Results Group A Strep Rapid Negative (Negative) 11/08/23 23:35 Discharge Plan Discharge Patient Disposition: Home Clinical Impression: Bacterial sinusitis Allergies Qualifiers: Encounter type: initial encounter Qualified Code(s): T78.40XA - Allergy, unspecified, initial encounter Condition: Stable Prescriptions: New prednisone 20 mg tablet 60 mg PO ONCE 5 Days Qty: 15 0RF No Action pregabalin [Lyrica] 200 mg capsule 200 mg PO Q12H montelukast 10 mg tablet 10 mg PO DAILY (DME) Diabetic shoes with 3 inserts See Rx Instructions .Route .MEDSUPPLY Qty: 1 0RF Rx Instructions: As directed by [facility] trazodone 300 mg tablet 300 mg PO BEDTIME Qty: 90 0RF citalopram 40 mg tablet See Rx Instructions .ROUTE .COMPLEX Qty: 30 11RF Dose Instruction: Take 1 tablet by mouth once daily at 10:00 PM Rx Instructions: Take 1 tablet by mouth once daily at 10:00 PM prazosin 2 mg capsule See Rx Instructions .ROUTE .COMPLEX Qty: 30 11RF Hold Instructions: see pcp Dose Instruction: Take 1 capsule by mouth at bedtime Rx Instructions: Take 1 capsule by mouth at bedtime along with 5 mg to=7mg total lamotrigine 200 mg tablet See Rx Instructions .ROUTE .COMPLEX Qty: 30 11RF Dose Instruction: Take 1 tablet by mouth once daily at 10:00 AM Rx Instructions: Take 1 tablet by mouth once daily at 10:00 AM prazosin 5 mg capsule See Rx Instructions .ROUTE .COMPLEX Qty: 30 11RF Hold Instructions: see pcp Dose Instruction: Take 1 capsule by mouth at bedtime Rx Instructions: Take 1 capsule by mouth at bedtime along with 2 mg to= 7mg total. quetiapine [Seroquel] 50 mg tablet 50 mg PO .HS Qty: 30 2RF Humulin 70/30 U-100 Insulin 100 unit/mL (70-30) suspension 80 unit SUBCUT BID Hold Instructions: see pcp Rx Instructions: per sliding scale cetirizine [Zyrtec] 10 mg Tablet 10 mg PO DAILY nystatin 100,000 unit/gram cream 1 applic TOPICAL BID diphenhydramine HCl [Benadryl Allergy] 25 mg Tablet 25 mg PO BID PRN (Reason: Allergy Symptoms) lorazepam 1 mg tablet 1 mg PO DAILY PRN (Reason: Anxiety) albuterol sulfate 90 mcg/actuation HFA aerosol inhaler See Rx Instructions .ROUTE .COMPLEX PRN (Reason: Shortness Of Breath) Rx Instructions: 2 puff inhaled every 4 to 6 hours as needed for shortness of breath oxymetazoline [Nasal [place] (oxymetazoline)] 0.05 % [place],Non-Aerosol 2 spray INTRANASAL Q12H PRN (Reason: Nasal Congestion) atorvastatin 40 mg tablet 40 mg PO DAILY metoprolol succinate 100 mg tablet extended release 24 hr 50 mg PO DAILY Qty: 30 0RF hydrocodone-acetaminophen 5-325 mg tablet See Rx Instructions .ROUTE .COMPLEX Rx Instructions: TAKE 1 TABLET BY MOUTH EVERY 4 TO 6 HOURS NEEDED FOR PAIN. pantoprazole 40 mg tablet,delayed release (DR/EC) 40 mg PO BID promethazine-DM 6.25-15 mg/5 mL syrup 5 ml PO Q4H PRN (Reason: Cough) Farxiga 10 mg tablet 10 mg PO DAILY furosemide 20 mg tablet 60 mg PO DAILY 30 Days Qty: 30 0RF Humalog U-100 Insulin 100 unit/mL Solution See Rx Instructions .ROUTE .COMPLEX Qty: 5 0RF Rx Instructions: 141-180 4u,181-220 6u,221-260 8u,261-300 10u,301-350 12u, 351-400 14u, >400 16u Discharge Orders: Discharge ED (Routine); Ordered 11/09/23 Ordered By: Eros Frausto Referrals: Agustina Whiting DO [Primary Care Provider] - Discharge Diet: Usual diet Discharge Activity: Increase activity as tolerated Patient Instructions: Rhinosinusitis (ED), Allergies (ED) Activity Restrictions/Additional Instructions: Continue taking Levaquin. Prednisone as prescribed. Follow-up with primary care next week as discussed. Return if you develop any new or worsening symptoms. Coding Level of Care Code ED Animal Rescuer for Carito Arreguin
== END 2023-11-09 00:49 | disposition home or self-care (01) ==
PROVIDERS: Emergency Provider Physician Assistant; PCP Family Medicine
DX: J32.8 Other chronic sinusitis (principal); B96.89 Other specified bacterial agents as the cause of diseases classified elsewhere; T78.40XA Allergy, unspecified, initial encounter; Z79.4 Long term (current) use of insulin; X58.XXXA Exposure to other specified factors, initial encounter
CPT/HCPCS: 87081; 87880; 96361; 96374; 96375; 99284; J1100; J1200; J1885; J2765; J7030

== ENCOUNTER 2024-01-04 01:06 | Emergency (ER) | payer MEDICARE, SELFPAY ==
[2024-01-04 01:43] VITALS: BP 135/57; PULSE 71; RESP 18; TEMP 36.9; O2SAT 94; BMI 50.1
--- NOTE | 2024-01-04 01:58 | XRR_ITS ---
PROCEDURE INFORMATION: Exam: XR Left Hip Exam date and time: 01/04/2024 2:03 AM Age: 53 years old Clinical indication: Pain and injury or trauma; Blunt trauma (contusions or hematomas); Patient HX: C/O worsening left hip pain since a fall one week ago. ; Additional info: Left hip pain after fall TECHNIQUE: Imaging protocol: Radiologic exam of the left hip. Views: 2 or 3 views hip with pelvis when performed. COMPARISON: [place] [id number] 09/25/2023 11:07 PM FINDINGS: Bones/joints: [id number]-prrigndr degenerative change of the visualized joint spaces. Soft tissues: Unremarkable. XR/XR hip LT 2-3V wo/w pel* [id number] IMPRESSION: 1. No acute findings. 2. [id number] degenerative change of the visualized joint spaces.
--- NOTE | 2024-01-04 02:29 | XRR_ITS ---
PROCEDURE INFORMATION: Exam: XR Spine; Lumbar Exam date and time: 01/04/2024 2:38 AM Age: 53 years old Clinical indication: Prior surgery; Surgery date: 6+ months; Surgery type: Lumbar fusion; Patient HX: C/O low back pain. History of chronic back pain. ; Additional info: Low back pain and hip pain TECHNIQUE: Imaging protocol: XR of the spine. Exam focused on the lumbar spine. Views: 1 view. 1 view. COMPARISON: CR XR lumbar spine 2-3V* [id number] 09/15/2017 4:51 PM FINDINGS: Bones/joints: Severe degenerative changes of the visualized joint spaces and disc spaces. Lower lumbar spine postsurgical change without surgical complication on this single projection. Gastrointestinal tract: The stomach is distended with ingested content. Soft tissues: Normal. XR/XR lumbar spine 1V [id number] IMPRESSION: 1. No acute osseous abnormality. 2. Grossly distended gastric bubble with ingested content. Correlate clinically.
[2024-01-04] MEDS: ketorolac 60 mg/2 mL INJ IM (02:36)
[2024-01-04 03:40] VITALS: BP 134/72; PULSE 71; RESP 17; O2SAT 94
--- NOTE | 2024-05-27 20:12 | ED_ITS ---
HPI - Extremity Problem General: Chief complaint: Extremity Injury, Lower Stated complaint: Left side hip pain Time Seen by Provider: 01/04/24 01:57 History of Present Illness: 53-year-old male Presented to the emerge ncy department for evaluation of left hip pain. Your report fell approximately one week ago and that he has had left hip pain since. He reports he is able to bear weight on that side. Pain has Gradually gotten worse over the past week. This morning in the shower, he twisted his hip again. He says the pain feels heavy and radiates to his thigh. He saw his PCM yesterday Pre Related Data Home Medications Medication Instructions Recorded Confirmed pregabalin 200 mg capsule (Lyrica) 200 mg PO Q12H 09/15/19 02/27/24 insulin human U-100 NPH-regulr 80 unit SUBCUT BID 06/20/20 02/27/24 70-30 mix 100 unit/mL subcutaneous susp (Humulin 70/30 U-100 Insulin) montelukast 10 mg tablet 10 mg PO DAILY 07/24/21 02/27/24 albuterol sulfate 90 mcg/actuation See Rx Instructions .Route 05/01/22 02/27/24 aerosol inhaler .COMPLEX PRN Shortness Of Breath cetirizine 10 mg tablet (Zyrtec) 10 mg PO DAILY 05/01/22 02/27/24 diphenhydramine HCl 25 mg tablet 25 mg PO BID PRN Allergy Symptoms 05/01/22 02/27/24 (Benadryl Allergy) lorazepam 1 mg tablet 1 mg PO DAILY PRN Anxiety 05/01/22 02/27/24 nystatin 100,000 unit/gram topical 1 applic topical BID 05/01/22 02/27/24 cream oxymetazoline 0.05 % nasal spray 2 spray intranasal Q12H PRN Nasal 05/01/22 02/27/24 (Nasal [place] (oxymetazoline)) Congestion atorvastatin 40 mg tablet 40 mg PO DAILY 10/31/22 02/27/24 dapagliflozin propanediol 10 mg 10 mg PO DAILY 09/24/23 02/27/24 tablet (Farxiga) hydrocodone 5 mg-acetaminophen 325 See Rx Instructions .Route .COMPLEX 09/24/23 02/27/24 mg tablet pantoprazole 40 mg tablet,delayed 40 mg PO BID 09/24/23 02/27/24 release promethazine-DM 6.25 mg-15 mg/5 mL 5 ml PO Q4H PRN Cough 09/24/23 02/27/24 oral syrup Previous Rx's Medication Instructions Recorded Diabetic shoes with 3 inserts #1 ea 04/24/22 metoprolol succinate 100 mg 50 mg (1/2 x 100 mg) PO DAILY #30 11/01/22 tablet,extended release 24 hr tabs trazodone 300 mg tablet 300 mg PO BEDTIME #90 tabs 03/15/23 citalopram 40 mg tablet See Rx Instructions .Route 08/27/23 .COMPLEX #30 tabs lamotrigine 200 mg tablet See Rx Instructions .Route 08/27/23 .COMPLEX #30 tabs prazosin 2 mg capsule See Rx Instructions .Route 08/27/23 .COMPLEX #30 caps prazosin 5 mg capsule See Rx Instructions .Route 08/27/23 .COMPLEX #30 caps furosemide 20 mg tablet 60 mg (3 x 20 mg) PO DAILY 30 days 09/27/23 #30 tabs insulin lispro 100 unit/mL See Rx Instructions .Route 09/27/23 subcutaneous solution (Humalog .COMPLEX #5 mL U-100 Insulin) amoxicillin 875 mg-potassium 1 tab PO BID #14 tabs 03/20/24 clavulanate 125 mg tablet azithromycin 250 mg tablet See Rx Instructions PO .COMPLEX #6 03/20/24 tabs quetiapine 100 mg tablet (Seroquel) 100 mg PO .HS #30 tabs 04/23/24 Allergies Allergy/AdvReac Type Severity Reaction Status Date / Time promethazine [From Phenergan] Allergy Unknown HARD TO Verified 02/27/24 10:57 BREATH Review of Systems General: Reports: 10 or more systems reviewed and unremarkable except in HPI and below PFSH ED PFSH: Medical History Chest pain Psychiatric care Generalized anxiety disorder Post-traumatic stress disorder, chronic Opioid contract exists Encounter for long-term use of opiate analgesic Lumbar back pain Surgical History History of colonoscopy History of elbow surgery History of lumbar fusion History of neck surgery 3x LAP-BAND surgery status Family History Other CAD (coronary artery disease) Cancer Diabetes Hypertension Psychiatric illness Social History Smoking and tobacco/nicotine status: never used tobacco/nicotine Alcohol intake: never Substance/Drug Use: never Physical Exam Const: COMMON NORMALS: no acute distress, patient oriented x3, healthy appearing, alert and well nourished HENMT: COMMON NORMALS: normocephalic HEAD & SCALP: normocephalic Eye: COMMON NORMALS: EOMs intact bilaterally Neck/C-Spine: COMMON NORMALS: full ROM and supple Resp: COMMON NORMALS: normal respiratory effort, No retractions and clear to auscultation bilaterally AUSCULTATION: clear to auscultation bilaterally Cardio: COMMON NORMALS: regular rate, regular rhythm, No gallops present (Cardio) and No murmurs present (Cardio) RATE: regular rate RHYTHM: regular rhythm GI: COMMON NORMALS: Soft to palpation and non-tender PALPATION: Yes Soft to palpation Extremity: GENERAL: Yes normal exam except as noted Neuro: COMMON NORMALS: patient oriented x3 SENSORIUM/ORIENTATION: Yes alert Skin: COMMON NORMALS: no rashes or lesions noted GENERAL SKIN EXAM: no rashes or lesions noted Course Vital Signs: Vital signs: Vital Signs Temperature 98.4 F 01/04/24 01:43 Pulse Rate 71 01/04/24 03:40 Respiratory Rate 17 01/04/24 03:40 Blood Pressure 134/72 01/04/24 03:40 Pulse Oximetry 94 01/04/24 03:40 Oxygen Delivery Me thod Room Air 01/04/24 01:43 MDM - Extremity (Nontraumatic) Medical Decision Making 53-year-old male present in emergency department for evaluation of hip pain. X- rays were negative for fracture. Instructed the patient to take [id number] pain medication's.Recieved toradol in the emergency department and improved his pain. Return precautions were discussed in the patient was discharged home and in good condition. Lab Data Radiology Impressions Hip/Pelvis X-Ray 01/04/24 01:58 IMPRESSION: 1. No acute findings. 2. [id number] degenerative change of the visualized joint spaces. Lumbar Spine X-Ray 01/04/24 02:29 IMPRESSION: 1. No acute osseous abnormality. 2. Grossly distended gastric bubble with ingested content. Correlate clinically. All radiology interpretation(s) finalized by discharge Discharge Plan Discharge Patient Disposition: Home Clinical Impression: Lumbar back pain, Acute pain of right hip, Radicular pain of right lower extremity Condition: Stable Prescriptions: No Action pregabalin [Lyrica] 200 mg capsule 200 mg PO Q12H montelukast 10 mg tablet 10 mg PO DAILY (DME) Diabetic shoes with 3 inserts See Rx Instructions .Route .MEDSUPPLY Qty: 1 0RF Rx Instructions: As directed by [facility] trazodone 300 mg tablet 300 mg PO BEDTIME Qty: 90 0RF citalopram 40 mg tablet See Rx Instructions .ROUTE .COMPLEX Qty: 30 11RF Dose Instruction: Take 1 tablet by mouth once daily at 10:00 PM Rx Instructions: Take 1 tablet by mouth once daily at 10:00 PM prazosin 2 mg capsule See Rx Instructions .ROUTE .COMPLEX Qty: 30 11RF Hold Instructions: see pcp Dose Instruction: Take 1 capsule by mouth at bedtime Rx Instructions: Take 1 capsule by mouth at bedtime along with 5 mg to=7mg total lamotrigine 200 mg tablet See Rx Instructions .ROUTE .COMPLEX Qty: 30 11RF Dose Instruction: Take 1 tablet by mouth once daily at 10:00 AM Rx Instructions: Take 1 tablet by mouth once daily at 10:00 AM prazosin 5 mg capsule See Rx Instructions .ROUTE .COMPLEX Qty: 30 11RF Hold Instructions: see pcp Dose Instruction: Take 1 capsule by mouth at bedtime Rx Instructions: Take 1 capsule by mouth at bedtime along with 2 mg to= 7mg total. quetiapine [Seroquel] 100 mg tablet 100 mg PO .HS Qty: 30 2RF Humulin 70/30 U-100 Insulin 100 unit/mL (70-30) suspension 80 unit SUBCUT BID Hold Instructions: see pcp Rx Instructions: per sliding scale azithromycin 250 mg tablet See Rx Instructions .ROUTE .COMPLEX Qty: 6 0RF Rx Instructions: take 500 mg today (day 1), then 250 mg for 4 days (days 2-5) amoxicillin-pot clavulanate 875-125 mg tablet 1 tab PO BID Qty: 14 0RF cetirizine [Zyrtec] 10 mg Tablet 10 mg PO DAILY nystatin 100,000 unit/gram cream 1 applic TOPICAL BID diphenhydramine HCl [Benadryl Allergy] 25 mg Tablet 25 mg PO BID PRN (Reason: Allergy Symptoms) lorazepam 1 mg tablet 1 mg PO DAILY PRN (Reason: Anxiety) albuterol sulfate 90 mcg/actuation HFA aerosol inhaler See Rx Instructions .ROUTE .COMPLEX PRN (Reason: Shortness Of Breath) Rx Instructions: 2 puff inhaled every 4 to 6 hours as needed for shortness of breath oxymetazoline [Nasal [place] (oxymetazoline)] 0.05 % [place],Non-Aerosol 2 spray INTRANASAL Q12H PRN (Reason: Nasal Congestion) atorvastatin 40 mg tablet 40 mg PO DAILY metoprolol succinate 100 mg tablet extended release 24 hr 50 mg PO DAILY Qty: 30 0RF hydrocodone-acetaminophen 5-325 mg tablet See Rx Instructions .ROUTE .COMPLEX Rx Instructions: TAKE 1 TABLET BY MOUTH EVERY 4 TO 6 HOURS NEEDED FOR PAIN. pantoprazole 40 mg tablet,delayed release (DR/EC) 40 mg PO BID promethazine-DM 6.25-15 mg/5 mL syrup 5 ml PO Q4H PRN (Reason: Cough) Farxiga 10 mg tablet 10 mg PO DAILY furosemide 20 mg tablet 60 mg PO DAILY 30 Days Qty: 30 0RF Humalog U-100 Insulin 100 unit/mL Solution See Rx Instructions .ROUTE .COMPLEX Qty: 5 0RF Rx Instructions: 141-180 4u,181-220 6u,221-260 8u,261-300 10u,301-350 12u, 351-400 14u, >400 16u Discharge Orders: Discharge ED (Routine); Ordered 01/04/24 Ordered By: Deshaun Dean Referrals: Agustina Whiting DO [Primary Care Provider] - Discharge Diet: Advance as tolerated Discharge Activity: Increase activity as tolerated Patient Instructions: Low Back Strain (ED), Opioid Safety, Pain Management Activity Restrictions/Additional Instructions: Please return to the emergency department for any new or worsening symptoms including urinary retention, fecal incontinence, fevers greater than 100.5. Coding Level of Care Code ED Stripper Shovel Operator for Carito Arreguin
== END 2024-01-04 03:41 | disposition home or self-care (01) ==
PROVIDERS: Emergency Provider General Practice; PCP Family Medicine
DX: M54.50 Low back pain, unspecified (principal); M25.551 Pain in right hip; M79.604 Pain in right leg
CPT/HCPCS: 72020; 73502; 96372; 99284; J1885

== ENCOUNTER 2024-03-20 10:02 | Emergency (ER) | payer MEDICARE, SELFPAY ==
[2024-03-20] VITALS (7 sets, daily range): BP systolic 102–135; BP diastolic 48–76; PULSE 88–125; RESP 14–20; TEMP 37.1–38.1; O2SAT 91–97; BMI 52.0
--- NOTE | 2024-03-20 11:13 | XR_ITS ---
WS: [id number] Examination: XR knee LT 3V* [id number] Reason for Exam: injury Date: 03/20/2024 Comparison: 10/11/2023 Findings: The bone density is maintained. There is no destruction No displaced fracture or dislocation is identified. No large joint effusion is . Degenerative changes are present. Marginal and patellar osteophytes are identified. XR/XR knee LT 3V* [id number] Impression: There is no displaced fracture or dislocation. Mild osteoarthritic changes are noted.
--- NOTE | 2024-03-20 11:13 | XR_ITS ---
WS: [id number] Examination: XR chest 1V portable [id number] Reason for Exam: sob Date: 03/20/2024 Comparison: 09/24/2023 Findings: The heart is not enlarged. The mediastinum is not widened. There is no edema or large effusion. There is no dense consolidation. Surgical changes over the lower cervical spine are noted. XR/XR chest 1V portable [id number] Impression: No acute lung process is identified.
--- NOTE | 2024-03-20 11:15 | ED_ITS ---
HPI - General Adult 2 General: Chief complaint: Weakness Stated complaint: knee problems Time Seen by Provider: 03/20/24 10:03 Source: patient and family Mode of arrival: wheelchair Limitations: no limitations History of Present Illness: Patient is a 53 year old male with history of diastolic CHF, hyperlipidemia, anxiety, insomnia, diabetes, hypertension, morbid obesity here for complaints of left knee pain as well as shortness of breath and difficulty breathing. Patient states approximately 2 to 3 days ago (although significant other symptoms much longer) he accidentally twisted and landed on his left knee after he got caught on a portion of the lawnmower. Patient states he has been having trouble bear weight since then. He states 3 days ago he received his COVID vaccination/booster. He states he felt well at that time but since then has developed a cough and shortness of breath. He states with his history of CHF, he chronically is on 2?2.5L of oxygen. He arrives tachycardic and mildly febrile with a temp of 100.6. Patient states at home he has gotten temperatures above 102. He is not having any abdominal pain, vomiting, or diarrhea. No rash. Patient states he feels tired and weak. Onset (ago): day(s) Severity: severe Pain Consistency: constant Relieving factors: none Exacerbating factors: other (walking on knee) Associated symptoms: Reports dyspnea and malaise; Deny chest pain, headache(s), nausea, rash, palpitations, syncope or vomiting Treatments prior to arrival: none Related Data Home Medications Medication Instructions Recorded Confirmed pregabalin 200 mg capsule (Lyrica) 200 mg PO Q12H 09/15/19 02/27/24 insulin human U-100 NPH-regulr 80 unit SUBCUT BID 06/20/20 02/27/24 70-30 mix 100 unit/mL subcutaneous susp (Humulin 70/30 U-100 Insulin) montelukast 10 mg tablet 10 mg PO DAILY 07/24/21 02/27/24 albuterol sulfate 90 mcg/actuation See Rx Instructions .Route 05/01/22 02/27/24 aerosol inhaler .COMPLEX PRN Shortness Of Breath cetirizine 10 mg tablet (Zyrtec) 10 mg PO DAILY 05/01/22 02/27/24 diphenhydramine HCl 25 mg tablet 25 mg PO BID PRN Allergy Symptoms 05/01/22 02/27/24 (Benadryl Allergy) lorazepam 1 mg tablet 1 mg PO DAILY PRN Anxiety 05/01/22 02/27/24 nystatin 100,000 unit/gram topical 1 applic topical BID 05/01/22 02/27/24 cream oxymetazoline 0.05 % nasal spray 2 spray intranasal Q12H PRN Nasal 05/01/22 02/27/24 (Nasal [place] (oxymetazoline)) Congestion atorvastatin 40 mg tablet 40 mg PO DAILY 10/31/22 02/27/24 dapagliflozin propanediol 10 mg 10 mg PO DAILY 09/24/23 02/27/24 tablet (Farxiga) hydrocodone 5 mg-acetaminophen 325 See Rx Instructions .Route .COMPLEX 09/24/23 02/27/24 mg tablet pantoprazole 40 mg tablet,delayed 40 mg PO BID 09/24/23 02/27/24 release promethazine-DM 6.25 mg-15 mg/5 mL 5 ml PO Q4H PRN Cough 09/24/23 02/27/24 oral syrup Previous Rx's Medication Instructions Recorded Diabetic shoes with 3 inserts #1 ea 04/24/22 metoprolol succinate 100 mg 50 mg (1/2 x 100 mg) PO DAILY #30 11/01/22 tablet,extended release 24 hr tabs trazodone 300 mg tablet 300 mg PO BEDTIME #90 tabs 03/15/23 citalopram 40 mg tablet See Rx Instructions .Route 08/27/23 .COMPLEX #30 tabs lamotrigine 200 mg tablet See Rx Instructions .Route 08/27/23 .COMPLEX #30 tabs prazosin 2 mg capsule See Rx Instructions .Route 08/27/23 .COMPLEX #30 caps prazosin 5 mg capsule See Rx Instructions .Route 08/27/23 .COMPLEX #30 caps furosemide 20 mg tablet 60 mg (3 x 20 mg) PO DAILY 30 days 09/27/23 #30 tabs insulin lispro 100 unit/mL See Rx Instructions .Route 09/27/23 subcutaneous solution (Humalog .COMPLEX #5 mL U-100 Insulin) quetiapine 100 mg tablet (Seroquel) 100 mg PO .HS #30 tabs 02/27/24 amoxicillin 875 mg-potassium 1 tab PO BID #14 tabs 03/20/24 clavulanate 125 mg tablet azithromycin 250 mg tablet See Rx Instructions PO .COMPLEX #6 03/20/24 tabs Allergies Allergy/AdvReac Type Severity Reaction Status Date / Time promethazine [From Phenergan] Allergy Unknown HARD TO Verified 02/27/24 10:57 BREATH Review of Systems 2 Const: Reports: fever(s), chills, body aches, fatigue and malaise Eyes: Denies: change in vision, blurry vision, photophobia, floaters or seeing flashes ENMT: Denies: throat pain, odynophagia, nasal discharge, nasal congestion or sinus pain Card: Reports: edema and dyspnea on exertion; Denies: chest pain, palpitations, irregular heart rhythm, lightheadedness or syncope Resp: Reports: dyspnea and non-productive cough; Denies: productive cough, wheezing, pain on inspiration or hemoptysis GI: Denies: abdominal pain, nausea, vomiting, heartburn or diarrhea : Denies: flank pain, difficulty urinating or dysuria Musc: Reports: joint pain (L knee); Denies: neck pain, back pain, extremity pain, extremity swelling or joint swelling Skin/Breast: Denies: rash Neuro: Denies: headache(s), numbness in extremities, weakness in extremities, sensory changes or dizziness PFSH ED 2 PFSH: Medical History Chest pain Psychiatric care Generalized anxiety disorder Post-traumatic stress disorder, chronic Opioid contract exists Encounter for long-term use of opiate analgesic Lumbar back pain Surgical History History of colonoscopy History of elbow surgery History of lumbar fusion History of neck surgery 3x LAP-BAND surgery status Family History Other CAD (coronary artery disease) Cancer Diabetes Hypertension Psychiatric illness Social History Smoking and tobacco/nicotine status: never used tobacco/nicotine Alcohol intake: never Substance/Drug Use: never Physical Exam 2 Const: COMMON NORMALS: patient oriented x3, no limitations, alert and well nourished GENERAL APPEARANCE: cooperative and ill appearing NUTRITIONAL APPEARANCE: obese morbidly obese (BMI of 52) ORIENTATION/CONSCIOUSNESS: Yes awake, Yes oriented to person, Yes oriented to place and Yes oriented to time OTHER: speaks with his eyes closed HENMT: COMMON NORMALS: normocephalic and atraumatic HEAD & SCALP: normal to inspection, normocephalic and atraumatic Neck/C-Spine: COMMON NORMALS: full ROM, no lymphadenopathy, supple and no meningeal signs Chest: COMMONS NORMALS: normal inspection of the chest and normal palpation of entire chest wall Resp: COMMON NORMALS: normal respiratory effort and clear to auscultation bilaterally AUSCULTATION: clear to auscultation bilaterally OTHER: satting roughly 92% on 2.5-3L Cardio: COMMON NORMALS: regular rhythm RATE: tachycardic RHYTHM: regular rhythm GI: COMMON NORMALS: Normal to inspection, nondistended, normoactive bowel sounds present, Soft to palpation, non-tender, No hepatosplenomegaly present and no masses PALPATION: Yes Soft to palpation and Yes No hepatosplenomegaly present : COMMON NORMALS: Yes no CVA tenderness BLADDER/KIDNEY EXAM: Yes no CVA tenderness Back/Pelvis: COMMON NORMALS: no CVA tenderness and thoracic and lumbar spine normal to inspection Extremity: GENERAL: Yes normal exam except as noted LEFT LOWER EXTREMITY: Y es knee joint (TTP L knee joint) Left knee: Yes ROM (limited secondary to pain) and Yes neurovascular exam (normal) OTHER: small anterior abrasion R LE-appears clean/well dressed Neuro: COMMON NORMALS: patient oriented x3, moves all extremities, no focal motor deficits and no sensory deficits noted SENSORIUM/ORIENTATION: Yes alert, Yes oriented to person, Yes oriented to place and Yes oriented to time MENINGEAL SIGNS: Yes no meningeal signs GAIT: Yes Unable to assess gait Skin: COMMON NORMALS: no rashes or lesions noted GENERAL SKIN EXAM: no rashes or lesions noted Course 2 Vital Signs: Vital signs: Vital Signs Temperature 99.0 F 03/20/24 13:55 Pulse Rate 90 03/20/24 14:30 Respiratory Rate 16 03/20/24 14:30 Blood Pressure 102/59 03/20/24 14:30 Pulse Oximetry 96 03/20/24 14:30 Oxygen Delivery Me thod Nasal Cannula 03/20/24 14:30 Oxygen Flow Rate 2.5 03/20/24 14:30 [facility] - General Adult Medical Decision Making Patient is a 53-year-old male here for left knee pain as well as cough, congestion, fevers. He has not had to increase his home oxygen. He initially arrives febrile and tachycardic. This resolved after antipyretics. He is feeling much better. He was given an IBW fluid bolus based on initial presentation. Blood work showing a white count of 16.4. He has a normal lactate. D-dimer was elevated thus CTA was ordered. CTA showing combination of pneumonia and atelectasis. He was made aware of pulmonary nodule and need for follow up. Remainder of blood work showing mild elevations of his BUN/Cr. These are close to baseline. Baseline troponin of 16 which is close to baselines as well. UA without evidence of infection. Patient was given 2 g of IV Rocephin prior to discharge. Will treat him for pneumonia. Did obtain COVID/flu/RSV all of which were negative. Serum ketones were negative. Recommend follow-up with PCP early next week. Return ED precautions given. Medical Records I reviewed the patient's medical records. Lab Data I reviewed the patient's lab results. 03/20/24 11:31 03/20/24 11:31 Radiology Impressions Chest X-Ray 03/20/24 11:13 Impression: No acute lung process is identified. Knee X-Ray 03/20/24 11:13 Impression: There is no displaced fracture or dislocation. Mild osteoarthritic changes are noted. Chest CTA 03/20/24 12:13 IMPRESSION: 1. Quality this examination is compromised by patient's body habitus and poor injection timing. 2. No central pulmonary embolism. 3. The central branches opacification is suboptimal. 4. Multifocal areas of atelectasis and pulmonary opacifications. Probably representing a combination of pneumonia and atelectasis. Recommend short-term follow-up after treatment. Recommend chest CT follow-up with IV contrast and 6 to 8 weeks to reevaluate the nodule in the RIGHT lower lobe. Neoplasm needs to be excluded. 5. No adenopathy. 6. Hepatic steatosis. Laboratory Results WBC 16.40 10^3/uL (3.29-11.43) H 03/20/24 11:31 RBC 4.57 10^6/uL (3.85-5.65) 03/20/24 11:31 Hgb 13.60 g/dL (11.27-16.99) 03/20/24 11:31 Hct 42.4 % (37-53) 03/20/24 11:31 MCV 92.8 fl (82-101) 03/20/24 11:31 MCH 29.8 pg (27-33) 03/20/24 11:31 MCHC 32.1 g/dL (30-55) 03/20/24 11:31 RDW 16.8 % (12.1-15.1) H 03/20/24 11:31 Plt Count 228 10^3/cmm (157-399) 03/20/24 11:31 MPV 10.2 fL (7.4-10.4) 03/20/24 11:31 Neut % (Auto) 85.6 % 03/20/24 11:31 Lymph % (Auto) 8.4 % 03/20/24 11:31 [place] % (Auto) 4.9 % 03/20/24 11:31 Eos % (Auto) 0.2 % 03/20/24 11:31 Baso % (Auto) 0.4 % 03/20/24 11:31 Neut # (Auto) 14.04 10^3/uL (1.8-7.7) H 03/20/24 11:31 Lymph # (Auto) 1.4 10^3/uL (0.8-4.8) 03/20/24 11:31 [place] # (Auto) 0.8 10^3/uL (0.2-0.9) 03/20/24 11:31 Eos # (Auto) 0.0 10^3/uL (0.0-0.8) 03/20/24 11:31 Baso # (Auto) 0.1 10^3/uL (0.0-0.1) 03/20/24 11:31 Nucleated RBC % (auto) 0 % 03/20/24 11:31 Nucleated RBCs # 0.0 /100WBC 03/20/24 11:31 D-Dimer 0.75 ug/mLFEU (0-0.59) H 03/20/24 11:31 Sodium 139 mmol/L (136-145) 03/20/24 11:31 Potassium 4.2 mmol/L (3.5-5.1) 03/20/24 11:31 Chloride 97 mmol/L (98-107) L 03/20/24 11:31 Carbon Dioxide 26 mmol/L (22-29) 03/20/24 11:31 Anion Gap 20.2 (5-19) H 03/20/24 11:31 BUN 27 mg/dL (6-20) H 03/20/24 11:31 Creatinine 1.5 mg/dL (0.7-1.2) H 03/20/24 11:31 GFR Calculation 49.0 mL/min (90-130) L 03/20/24 11:31 Glucose 240 mg/dL (65-115) H 03/20/24 11:31 Calculated Osmolality 301 mOsm/kg (285-295) H 03/20/24 11:31 Lactic Acid 2.0 mmol/L (0.5-2.2) 03/20/24 11:31 Calcium 8.5 mg/dL (8.5-10.5) 03/20/24 11:31 Total Bilirubin 0.5 mg/dL (0.15-1.2) 03/20/24 11:31 AST 28 U/L (0-40) 03/20/24 11:31 ALT 25 U/L (0-41) 03/20/24 11:31 Alkaline Phosphatase 124 U/L (40-130) 03/20/24 11:31 Troponin T Baseline 16 ng/L (0-15) H 03/20/24 11:31 Troponin T 120 Minute 13.98 ng/L (0-15) 03/20/24 14:04 Delta Troponin T -2.02 ABS# (0-10) L 03/20/24 14:04 C-Reactive Protein 65.9 mg/L (0.0-4.9) H 03/20/24 11:31 NT-Pro-B Natriuret Pep 52 pg/mL (0-125) 03/20/24 11:31 Total Protein 7.0 g/dL (6.6-8.7) 03/20/24 11:31 Albumin 4.1 g/dL (3.5-5.2) 03/20/24 11:31 Globulin 2.9 g/dL (1.3-4.6) 03/20/24 11:31 Procalcitonin 0.31 ng/mL (0-0.5) 03/20/24 11:31 Urine Color Yellow (Yellow) 03/20/24 12:38 Urine Appearance Clear (CLEAR) 03/20/24 12:38 Urine pH 5.0 (5-7) 03/20/24 12:38 Ur Specific [place] 1.020 (1.005-1.030) 03/20/24 12:38 Urine Protein Negative (Negative) 03/20/24 12:38 Urine Glucose (UA) 3+ (Normal) H 03/20/24 12:38 Urine Ketones Negative (Negative) 03/20/24 12:38 Urine Blood Negative (Negative) 03/20/24 12:38 Urine Nitrate Negative (Negative) 03/20/24 12:38 Urine Bilirubin Negative (Negative) 03/20/24 12:38 Urine Urobilinogen 0.2 mg/dL (Negative) 03/20/24 12:38 Ur Leukocyte Esterase Negative (Negative) 03/20/24 12:38 Amorphous Sediment Not Reportable 03/20/24 12:38 Serum Ketones Negative (Negative) 03/20/24 11:31 Coronavirus (PCR) Negative (Negative) 03/20/24 12:25 Coronavirus 229E (PCR) Cancelled 03/20/24 12:25 Influenza A (PCR) Negative (Negative) 03/20/24 12:25 Influenza Type B (PCR) Negative (Negative) 03/20/24 12:25 RSV (PCR) Negative (Negative) 03/20/24 12:25 SARS-CoV-2 (PCR) Cancelled 03/20/24 12:25 All radiology interpretation(s) finalized by discharge Discharge Plan Discharge Patient Disposition: Home Clinical Impression: Bilateral pneumonia Qualifiers: Pneumonia type: due to unspecified organism Lung location: unspecified part of lung Qualified Code(s): J18.9 - Pneumonia, unspecified organism Condition: Stable Prescriptions: New azithromycin 250 mg tablet See Rx Instructions .ROUTE .COMPLEX Qty: 6 0RF Rx Instructions: take 500 mg today (day 1), then 250 mg for 4 days (days 2-5) amoxicillin-pot clavulanate 875-125 mg tablet 1 tab PO BID Qty: 14 0RF No Action pregabalin [Lyrica] 200 mg capsule 200 mg PO Q12H montelukast 10 mg tablet 10 mg PO DAILY (DME) Diabetic shoes with 3 inserts See Rx Instructions .Route .MEDSUPPLY Qty: 1 0RF Rx Instructions: As directed by [facility] quetiapine [Seroquel] 100 mg tablet 100 mg PO .HS Qty: 30 2RF trazodone 300 mg tablet 300 mg PO BEDTIME Qty: 90 0RF citalopram 40 mg tablet See Rx Instructions .ROUTE .COMPLEX Qty: 30 11RF Dose Instruction: Take 1 tablet by mouth once daily at 10:00 PM Rx Instructions: Take 1 tablet by mouth once daily at 10:00 PM prazosin 2 mg capsule See Rx Instructions .ROUTE .COMPLEX Qty: 30 11RF Hold Instructions: see pcp Dose Instruction: Take 1 capsule by mouth at bedtime Rx Instructions: Take 1 capsule by mouth at bedtime along with 5 mg to=7mg total lamotrigine 200 mg tablet See Rx Instructions .ROUTE .COMPLEX Qty: 30 11RF Dose Instruction: Take 1 tablet by mouth once daily at 10:00 AM Rx Instructions: Take 1 tablet by mouth once daily at 10:00 AM prazosin 5 mg capsule See Rx Instructions .ROUTE .COMPLEX Qty: 30 11RF Hold Instructions: see pcp Dose Instruction: Take 1 capsule by mouth at bedtime Rx Instructions: Take 1 capsule by mouth at bedtime along with 2 mg to= 7mg total. Humulin 70/30 U-100 Insulin 100 unit/mL (70-30) suspension 80 unit SUBCUT BID Hold Instructions: see pcp Rx Instructions: per sliding scale cetirizine [Zyrtec] 10 mg Tablet 10 mg PO DAILY nystatin 100,000 unit/gram cream 1 applic TOPICAL BID diphenhydramine HCl [Benadryl Allergy] 25 mg Tablet 25 mg PO BID PRN (Reason: Allergy Symptoms) lorazepam 1 mg tablet 1 mg PO DAILY PRN (Reason: Anxiety) albuterol sulfate 90 mcg/actuation HFA aerosol inhaler See Rx Instructions .ROUTE .COMPLEX PRN (Reason: Shortness Of Breath) Rx Instructions: 2 puff inhaled every 4 to 6 hours as needed for shortness of breath oxymetazoline [Nasal [place] (oxymetazoline)] 0.05 % [place],Non-Aerosol 2 spray INTRANASAL Q12H PRN (Reason: Nasal Congestion) atorvastatin 40 mg tablet 40 mg PO DAILY metoprolol succinate 100 mg tablet extended release 24 hr 50 mg PO DAILY Qty: 30 0RF hydrocodone-acetaminophen 5-325 mg tablet See Rx Instructions .ROUTE .COMPLEX Rx Instructions: TAKE 1 TABLET BY MOUTH EVERY 4 TO 6 HOURS NEEDED FOR PAIN. pantoprazole 40 mg tablet,delayed release (DR/EC) 40 mg PO BID promethazine-DM 6.25-15 mg/5 mL syrup 5 ml PO Q4H PRN (Reason: Cough) Farxiga 10 mg tablet 10 mg PO DAILY furosemide 20 mg tablet 60 mg PO DAILY 30 Days Qty: 30 0RF Humalog U-100 Insulin 100 unit/mL Solution See Rx Instructions .ROUTE .COMPLEX Qty: 5 0RF Rx Instructions: 141-180 4u,181-220 6u,221-260 8u,261-300 10u,301-350 12u, 351-400 14u, >400 16u Discharge Orders: Discharge ED (Routine); Ordered 03/20/24 Ordered By: Teresita Mccarty Referrals: Agustina Whiting DO [Primary Care Provider] - Patient Instructions: Bacterial Pneumonia (DC), Pneumonia (ED) Activity Restrictions/Additional Instructions: As we discussed I would like you to follow-up with primary care early next week for reevaluation. You need to return to the emergency department immediately for severe chest pain, shortness of breath, difficulty breathing, having to increase your home oxygen requirement, fevers that do not respond to [id number] Tylenol/Motrin, inability to hold down your antibiotics, generally feeling worse or unwell, or any other concerns you may have. Coding Level of Care Code ED Street Flusher Driver for Carito Arreguin
--- NOTE | 2024-03-20 11:36 | ECG_ITS ---
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 Measurements Intervals [place] Rate: 111 P: 34 ME: 152 QRS: 16 QRSD: 86 T: 63 QT: 313 QTc: 426 Interpretive Statements SINUS TACHYCARDIA ANTEROSEPTAL MYOCARDIAL INFARCTION , OF INDETERMINATE AGE [40+ ms Q WAVE IN V1-V4] Compared to ECG 09/24/2023 03:10:48 Myocardial infarct finding now present Sinus rhythm no longer present Electronically Signed On 03-20-2024 17:03:42 CDT by Neel Pandey M.D. [id number]
[2024-03-20 11:47] LABS: Basophils # 0.1 10^3/uL (0.0-0.1); Basophils % 0.4 %; Eosinophils % 0.2 %; Hematocrit 42.4 % (37-53); Lymphocytes # 1.4 10^3/uL (0.8-4.8); Lymphocytes % 8.4 %; Mean Corpuscular HGB Conc 32.1 g/dL (30-55); Mean Corpuscular Hemoglobin 29.8 pg (27-33); Mean Corpuscular Volume 92.8 fl (82-101); Mean Platelet Volume 10.2 fL (7.4-10.4); Monocytes # 0.8 10^3/uL (0.2-0.9); Monocytes % 4.9 %; Neutrophils # 14.04 10^3/uL (1.8-7.7); Neutrophils % 85.6 %; Nucleated Red Blood Cells % 0 %; Platelet Count 228 10^3/cmm (157-399); Red Blood Count 4.57 10^6/uL (3.85-5.65); Red Cell Distribution Width 16.8 % (12.1-15.1)
[2024-03-20 12:03] LABS: D Dimer 0.75 ug/mLFEU (0-0.59)
[2024-03-20 12:06] LABS: Troponin(5th) Baseline 16 ng/L (0-15)
--- NOTE | 2024-03-20 12:13 | CT_ITS ---
WS: [id number] CT CHEST ANGIOGRAPHY WITH REFORMATS HISTORY: sob, tachycardia, elevated ddimer TECHNIQUE: Contiguous axial images are obtained through the chest during arterial injection of intrav enous contrast. Images are reconstructed to evaluate the pulmonary arteries. MIP imaging also reviewe d. All CT scans at [facility] use at least one of these dose optimization techniques: automat ed exposure control; mA and/or kV adjustment per patient size (includes targeted exams where dose is matched to clinical indication); or iterative reconstruction. CONTRAST: Omnipaque 350; 100 mL IV. DLP: 584.32 mGy.cm COMPARISON: 09/25/2023 Very poor contrast opacification of the pulmonary arteries due to timing of the contrast bolus. Pulmo nary artery size is slightly larger than the aorta. No central filling defects. Beyond the lobar bran ches the opacification is suboptimal to exclude pulmonary emboli. Normal size thoracic aorta. Normal heart with no RIGHT heart strain. No pericardial effusion. Lung volumes are decreased. Bibasilar subsegmental atelectasis. Additional atelectasis RIGHT upper lo be along the fissure. More focal irregular consolidation superior segment RIGHT lower lobe measures 1 2 x 17 mm and will need to be further evaluated on follow-up imaging. There are additional scattered asymmetries. No mediastinal or hilar adenopathy. Mildly prominent lymphoid tissue at the RIGHT hilum. Small hiatal hernia. Hepatic steatosis. No adrenal mass. CT/CT angio chest PE protcl [id number] IMPRESSION: 1. Quality this examination is compromised by patient's body habitus and poor injection timing. 2. No central pulmonary embolism. 3. The central branches opacification is suboptimal. 4. Multifocal areas of atelectasis and pulmonary opacifications. Probably repr esenting a combination of pneumonia and atelectasis. Recommend short-term follo w-up after treatment. Recommend chest CT follow-up with IV contrast and 6 to 8 weeks to reevaluate the nodule in the RIGHT lower lobe. Neoplasm needs to be ex cluded. 5. No adenopathy. 6. Hepatic steatosis.
[2024-03-20 12:16] LABS: NT Pro B Type Natriuretic Pept 52 pg/mL (0-125); Procalcitonin 0.31 ng/mL (0-0.5)
[2024-03-20] MEDS: acetaminophen 500 mg Tablet 1000 MG PO (12:19)
[2024-03-20] MEDS: sodium chloride 0.9% 1,000 ML 999 ML IV ×2 (12:22)
[2024-03-20 12:27] LABS: Alanine Aminotransferase 25 U/L (0-41); Albumin Level 4.1 g/dL (3.5-5.2); Alkaline Phosphatase 124 U/L (40-130); Anion Gap 20.2 (5-19); Aspartate Amino Transferase 28 U/L (0-40); Blood Urea Nitrogen 27 mg/dL (6-20); C Reactive Protein 65.9 mg/L (0.0-4.9); Calcium 8.5 mg/dL (8.5-10.5); Carbon Dioxide 26 mmol/L (22-29); Chloride 97 mmol/L (98-107); Globulin 2.9 g/dL (1.3-4.6); Glucose 240 mg/dL (65-115); Osmolality Calculated 301 mOsm/kg (285-295); Potassium 4.2 mmol/L (3.5-5.1); Sodium 139 mmol/L (136-145); Total Bilirubin 0.5 mg/dL (0.15-1.2)
[2024-03-20 13:00] LABS: Charge for UA Resulting for Rev
[2024-03-20 13:10] LABS: Bilirubin Urine Negative (Negative); Blood Urine Negative (Negative); Glucose Urine UA 3+ (Normal); Ketones Urine Negative (Negative); Leukocyte Esterase Urine Negative (Negative); Nitrate Urine Negative (Negative); Protein Urine Negative (Negative); Urine Appearance Clear (CLEAR); Urine Color Yellow (Yellow); Urobilinogen Urine 0.2 mg/dL (Negative)
--- NOTE | 2024-03-20 13:14 | ECG_ITS ---
[facility] Test Date: 2024-03-20 Pat Name: Sergei Lucas Department: Room: Gender: Male Rn Homecare: : 1970 Requested By: Teresita Mccarty Order Number: [id number] Sergio MD: Neel Pandey M.D. Measurements Intervals [place] Rate: 100 P: 49 [place]: 165 QRS: 20 QRSD: 95 T: 65 QT: 344 QTc: 444 Interpretive Statements SINUS TACHYCARDIA POSSIBLE ANTERIOR MYOCARDIAL INFARCTION , OF INDETERMINATE AGE [30 ms Q WAVE IN V3/V4, OR R < 0.2 mV IN V4] Compared to ECG 03/20/2024 11:36:40 No significant changes Electronically Signed On 03-20-2024 17:11:38 CDT by Neel Pandey M.D. [email or web address].[email or web address]/store/OM/[id number]
[2024-03-20 13:38] LABS: Ketone (Acetest) Serum Negative (Negative)
[2024-03-20] MEDS: iohexol 350 mg/mL 500 mL Btl (per mL) IV (13:53)
[2024-03-20 14:15] LABS: Covid PCR NEGATIVE (Negative); Influenza A NEGATIVE (Negative); Influenza B NEGATIVE (Negative); Respiratory Syncytial Virus Ce NEGATIVE (Negative)
[2024-03-20 14:28] LABS: Troponin 5 2HR 13.98 ng/L (0-15)
[2024-03-20 14:29] LABS: Troponin 5 2HR Delta -2.02 ABS# (0-10)
[2024-03-20] MEDS: cefTRIAXone 2,000 mg SDV 2000 MG IVP (15:13)
== END 2024-03-20 15:59 | disposition home or self-care (01) ==
PROVIDERS: Emergency Provider Physician Assistant; PCP Family Medicine
DX: J15.9 Unspecified bacterial pneumonia (principal); Z79.4 Long term (current) use of insulin; S80.811A Abrasion, right lower leg, initial encounter; I11.0 Hypertensive heart disease with heart failure; I50.30 Unspecified diastolic (congestive) heart failure; E11.9 Type 2 diabetes mellitus without complications; W19.XXXA Unspecified fall, initial encounter
CPT/HCPCS: 0241U; 36415; 71045; 71275; 73562; 80053; 81003; 81015; 82009; 83605; 83880; 84145; 84484; 85025; 85378; 86140; 87040; 93005; 96374; 99285; J0696; J7030

== ENCOUNTER 2024-05-08 23:15 | Emergency (ER) | payer MEDICARE, OTHER, SELFPAY ==
[2024-05-08 23:22] VITALS: BP 117/64; PULSE 74; RESP 18; TEMP 36.8; O2SAT 94
--- NOTE | 2024-05-08 23:49 | XRR_ITS ---
PROCEDURE INFORMATION: Exam: XR Left Knee Exam date and time: 05/08/2024 11:54 PM Age: 53 years old Clinical indication: Patient HX: C/O left knee pain. No injury. TECHNIQUE: Imaging protocol: Radiologic exam of the left knee. Views: 3 views. COMPARISON: CR XR knee LT 3V* [id number] 03/20/2024 11:18 AM FINDINGS: Bones/joints: Mild degenerative changes in the patellofemoral compartment. No fracture or joint effusion. Soft tissues: Normal. XR/XR knee LT 3V* [id number] IMPRESSION: 1. Mild degenerative changes in the patellofemoral compartment. 2. No fracture or joint effusion.
--- NOTE | 2024-05-08 23:50 | W.ED.WOUNDLC ---
HPI - Wound/Laceration General: Chief Complaint: Wound/Laceration Stated Complaint: Wound wont heal left knee painful Time Seen by Provider: 05/08/24 23:31 Source: patient Mode of arrival: ambulatory Limitations: no limitations History of Present Illness: Patient is a 53-year-old male presenting to the emergency department complaining of wound to left knee nonhealing has been there since March after entering incident. States he is scheduled for an MRI as he also has a history of arthritis, also has neuropathy from diabetes and takes Lyrica. States his sugars have been running extremely high because he has had increased stress, states his left him. I did ask him if he was suicidal homicidal, he states no one that he follows up with [facility] [place] and was prescribed something to help him sleep at night. Reviewing his meds this appears to have been lorazepam. He has no plan, states he is here for his pain in his knee. He has the MRI scheduled with primary care, but states that he is unsure when it is. He is requesting that he get an x-ray at this time. No fever, nausea vomiting, shortness of breath, or other symptoms. Onset (ago): month(s) Extremity Location: Left: knee Associated symptoms: Denies chills, fever(s), nausea or vomiting Related Data Home Medications Medication Instructions Recorded Confirmed pregabalin 200 mg capsule (Lyrica) 200 mg PO Q12H 09/15/19 02/27/24 insulin human U-100 NPH-regulr 80 unit SUBCUT BID 06/20/20 02/27/24 70-30 mix 100 unit/mL subcutaneous susp (Humulin 70/30 U-100 Insulin) montelukast 10 mg tablet 10 mg PO DAILY 07/24/21 02/27/24 albuterol sulfate 90 mcg/actuation See Rx Instructions .Route 05/01/22 02/27/24 aerosol inhaler .COMPLEX PRN Shortness Of Breath cetirizine 10 mg tablet (Zyrtec) 10 mg PO DAILY 05/01/22 02/27/24 diphenhydramine HCl 25 mg tablet 25 mg PO BID PRN Allergy Symptoms 05/01/22 02/27/24 (Benadryl Allergy) lorazepam 1 mg tablet 1 mg PO DAILY PRN Anxiety 05/01/22 02/27/24 nystatin 100,000 unit/gram topical 1 applic topical BID 05/01/22 02/27/24 cream oxymetazoline 0.05 % nasal spray 2 spray intranasal Q12H PRN Nasal 05/01/22 02/27/24 (Nasal Isabella (oxymetazoline)) Congestion atorvastatin 40 mg tablet 40 mg PO DAILY 10/31/22 02/27/24 dapagliflozin propanediol 10 mg 10 mg PO DAILY 09/24/23 02/27/24 tablet (Farxiga) hydrocodone 5 mg-acetaminophen 325 See Rx Instructions .Route .COMPLEX 09/24/23 02/27/24 mg tablet pantoprazole 40 mg tablet,delayed 40 mg PO BID 09/24/23 02/27/24 release promethazine-DM 6.25 mg-15 mg/5 mL 5 ml PO Q4H PRN Cough 09/24/23 02/27/24 oral syrup Previous Rx's Medication Instructions Recorded Diabetic shoes with 3 inserts #1 ea 04/24/22 metoprolol succinate 100 mg 50 mg (1/2 x 100 mg) PO DAILY #30 11/01/22 tablet,extended release 24 hr tabs trazodone 300 mg tablet 300 mg PO BEDTIME #90 tabs 03/15/23 citalopram 40 mg tablet See Rx Instructions .Route 08/27/23 .COMPLEX #30 tabs lamotrigine 200 mg tablet See Rx Instructions .Route 08/27/23 .COMPLEX #30 tabs prazosin 2 mg capsule See Rx Instructions .Route 08/27/23 .COMPLEX #30 caps prazosin 5 mg capsule See Rx Instructions .Route 08/27/23 .COMPLEX #30 caps furosemide 20 mg tablet 60 mg (3 x 20 mg) PO DAILY 30 days 09/27/23 #30 tabs insulin lispro 100 unit/mL See Rx Instructions .Route 09/27/23 subcutaneous solution (Humalog .COMPLEX #5 mL U-100 Insulin) amoxicillin 875 mg-potassium 1 tab PO BID #14 tabs 03/20/24 clavulanate 125 mg tablet azithromycin 250 mg tablet See Rx Instructions PO .COMPLEX #6 03/20/24 tabs quetiapine 100 mg tablet (Seroquel) 100 mg PO .HS #30 tabs 04/23/24 sulfamethoxazole 800 1 tab PO BID 7 days #14 tabs 10/26/24 mg-trimethoprim 160 mg tablet (Bactrim DS) Allergies Allergy/AdvReac Type Severity Reaction Status Date / Time promethazine [From Phenergan] Allergy Unknown HARD TO Verified 02/27/24 10:57 BREATH Review of Systems General: Reports: 10 or more systems reviewed and unremarkable except in HPI and below Const: Denies: fever(s) or chills Card: Denies: chest pain Resp: Denies: dyspnea GI: Denies: abdominal pain, nausea, vomiting or diarrhea Musc: Reports: joint pain (Left knee); Denies: extremity pain, extremity swelling or joint swelling Skin/Breast: Reports: skin tenderness and new lesions (Left knee); Denies: rash Neuro: Denies: headache(s) PFSH ED PFSH: Medical History Chest pain Psychiatric care Generalized anxiety disorder Post-traumatic stress disorder, chronic Opioid contract exists Encounter for long-term use of opiate analgesic Lumbar back pain Surgical History History of colonoscopy History of elbow surgery History of lumbar fusion History of neck surgery 3x LAP-BAND surgery status Family History Other CAD (coronary artery disease) Cancer Diabetes Hypertension Psychiatric illness Social History Smoking and tobacco/nicotine status: never used tobacco/nicotine Alcohol intake: never Substance/Drug Use: never Physical Exam Const: COMMON NORMALS: no acute distress, patient oriented x3, no limitations, healthy appearing, alert and well nourished NUTRITIONAL APPEARANCE: obese morbidly obese HENMT: COMMON NORMALS: normocephalic and atraumatic HEAD & SCALP: normocephalic and atraumatic Neck/C-Spine: COMMON NORMALS: full ROM, no lymphadenopathy, supple and no meningeal signs Resp: COMMON NORMALS: normal respiratory effort, No use of accessory muscles and clear to auscultation bilaterally AUSCULTATION: clear to auscultation bilaterally Cardio: COMMON NORMALS: regular rate and regular rhythm RATE: regular rate RHYTHM: regular rhythm Extremity: COMMON NORMALS: full ROM, capillary refill normal, no joint enlargement, no clubbing, cyanosis or edema, no calf tenderness and no pedal edema NARRATIVE EXTREMITY EXAM: Distal pulses 2+, good strength distally. Knee joint nontender to palpation, no concerning signs for joint effusion Neuro: COMMON NORMALS: patient oriented x3, moves all extremities, no focal motor deficits and no sensory deficits noted SENSORIUM/ORIENTATION: Yes alert MENINGEAL SIGNS: Yes no meningeal signs Psych: THOUGHT CONTENT: No Suicidality present, No Homicidality present and No Hallucination(s) present Skin: COMMON NORMALS: no wounds and turgor normal NARRATIVE SKIN EXAM: Circumferential and erythematous lesion to anterior left knee, no active drainage. Somewhat tender to palpation. No fluctuance. GENERAL SKIN EXAM: turgor normal Course Vital Signs: Vital signs: Vital Signs Temperature 98.2 F 05/08/24 23:22 Pulse Rate 67 05/09/24 01:46 Respiratory Rate 16 05/09/24 01:46 Blood Pressure 111/68 05/09/24 01:46 Pulse Oximetry 96 05/09/24 01:46 Oxygen Delivery Me thod Room Air 05/09/24 01:46 MDM - Wound/Laceration Medical Decision Making Patient with complaints of lesion of the left knee. X-ray was normal for this. This did appear cellulitic will prescribe antibiotics. He was endorsing some increase in behavioral health stuff, but was not suicidal or homicidal here. He does have outpatient [facility] and he is instructed to follow-up with them. I did thoroughly discussed with him to return if he does start having thoughts of suicide or homicide, and he understands and feels okay to go home at this time. Lab Data Radiology Impressions Knee X-Ray 05/08/24 23:49 IMPRESSION: 1. Mild degenerative changes in the patellofemoral compartment. 2. No fracture or joint effusion. All radiology interpretation(s) finalized by discharge Discharge Plan Discharge Patient Disposition: Home Clinical Impression: Cellulitis of knee, left Condition: Stable Prescriptions: New sulfamethoxazole-trimethoprim [Bactrim DS] 800-160 mg tablet 1 tab PO BID 7 Days Qty: 14 0RF No Action pregabalin [Lyrica] 200 mg capsule 200 mg PO Q12H montelukast 10 mg tablet 10 mg PO DAILY (DME) Diabetic shoes with 3 inserts See Rx Instructions .Route .MEDSUPPLY Qty: 1 0RF Rx Instructions: As directed by [facility] trazodone 300 mg tablet 300 mg PO BEDTIME Qty: 90 0RF citalopram 40 mg tablet See Rx Instructions .ROUTE .COMPLEX Qty: 30 11RF Dose Instruction: Take 1 tablet by mouth once daily at 10:00 PM Rx Instructions: Take 1 tablet by mouth once daily at 10:00 PM prazosin 2 mg capsule See Rx Instructions .ROUTE .COMPLEX Qty: 30 11RF Hold Instructions: see pcp Dose Instruction: Take 1 capsule by mouth at bedtime Rx Instructions: Take 1 capsule by mouth at bedtime along with 5 mg to=7mg total lamotrigine 200 mg tablet See Rx Instructions .ROUTE .COMPLEX Qty: 30 11RF Dose Instruction: Take 1 tablet by mouth once daily at 10:00 AM Rx Instructions: Take 1 tablet by mouth once daily at 10:00 AM prazosin 5 mg capsule See Rx Instructions .ROUTE .COMPLEX Qty: 30 11RF Hold Instructions: see pcp Dose Instruction: Take 1 capsule by mouth at bedtime Rx Instructions: Take 1 capsule by mouth at bedtime along with 2 mg to= 7mg total. quetiapine [Seroquel] 100 mg tablet 100 mg PO .HS Qty: 30 2RF Humulin 70/30 U-100 Insulin 100 unit/mL (70-30) suspension 80 unit SUBCUT BID Hold Instructions: see pcp Rx Instructions: per sliding scale azithromycin 250 mg tablet See Rx Instructions .ROUTE .COMPLEX Qty: 6 0RF Rx Instructions: take 500 mg today (day 1), then 250 mg for 4 days (days 2-5) amoxicillin-pot clavulanate 875-125 mg tablet 1 tab PO BID Qty: 14 0RF cetirizine [Zyrtec] 10 mg Tablet 10 mg PO DAILY nystatin 100,000 unit/gram cream 1 applic TOPICAL BID diphenhydramine HCl [Benadryl Allergy] 25 mg Tablet 25 mg PO BID PRN (Reason: Allergy Symptoms) lorazepam 1 mg tablet 1 mg PO DAILY PRN (Reason: Anxiety) albuterol sulfate 90 mcg/actuation HFA aerosol inhaler See Rx Instructions .ROUTE .COMPLEX PRN (Reason: Shortness Of Breath) Rx Instructions: 2 puff inhaled every 4 to 6 hours as needed for shortness of breath oxymetazoline [Nasal Isabella (oxymetazoline)] 0.05 % Isabella,Non-Aerosol 2 spray INTRANASAL Q12H PRN (Reason: Nasal Congestion) atorvastatin 40 mg tablet 40 mg PO DAILY metoprolol succinate 100 mg tablet extended release 24 hr 50 mg PO DAILY Qty: 30 0RF hydrocodone-acetaminophen 5-325 mg tablet See Rx Instructions .ROUTE .COMPLEX Rx Instructions: TAKE 1 TABLET BY MOUTH EVERY 4 TO 6 HOURS NEEDED FOR PAIN. pantoprazole 40 mg tablet,delayed release (DR/EC) 40 mg PO BID promethazine-DM 6.25-15 mg/5 mL syrup 5 ml PO Q4H PRN (Reason: Cough) Farxiga 10 mg tablet 10 mg PO DAILY furosemide 20 mg tablet 60 mg PO DAILY 30 Days Qty: 30 0RF Humalog U-100 Insulin 100 unit/mL Solution See Rx Instructions .ROUTE .COMPLEX Qty: 5 0RF Rx Instructions: 141-180 4u,181-220 6u,221-260 8u,261-300 10u,301-350 12u, 351-400 14u, >400 16u Discharge Orders: Discharge ED (Routine); Ordered 05/09/24 Ordered By: Carlton Ruiz Referrals: Agustina Whiting DO [Primary Care Provider] - Patient Instructions: Cellulitis (ED) Activity Restrictions/Additional Instructions: Bactrim as prescribed. Follow-up with your primary care provider as discussed. Continue taking medications at home. Follow-up with [facility] [place] as discussed. Return with any new or worsening. If you develop any thoughts of suicide or homicide, or experience any hallucinations also return to the emergency department. Coding Level of Care Code ED Procurement Clerk for Carito Arreguin
--- NOTE | 2024-05-08 23:51 | PC.NURSE ---
While transporting patient to room he became tearful and states, I just don't want to be here . Asked patient if he is suicidal and he states, not today . Pt tells me that he has been taking to Marcelle at [facility] and she has prescribed him a medication. He reports that he has not started taking this yet. Pt has been depressed and stressed over his living him after a head injury. Pt denies active suicide planning. PRovider aware.
[2024-05-09] MEDS: sulfamethoxazole-trimeth DS 160-800 mg Tablet 1 TAB PO (00:13)
[2024-05-09] MEDS: ketorolac 60 mg/2 mL INJ IM (01:23)
[2024-05-09] MEDS: orphenadrine 30 mg/mL Inj 2 mL 60 MG IM (01:23)
[2024-05-09 01:46] VITALS: BP 111/68; PULSE 67; RESP 16; O2SAT 96
== END 2024-05-09 01:50 | disposition home or self-care (01) ==
PROVIDERS: Emergency Provider Physician Assistant; PCP Family Medicine
DX: L03.116 Cellulitis of left lower limb (principal); E11.40 Type 2 diabetes mellitus with diabetic neuropathy, unspecified; Z79.899 Other long term (current) drug therapy
CPT/HCPCS: 73562; 96372; 99284; J1885; J2360

== ENCOUNTER → 2024-07-20 10:08 | Outpatient (BNVA) | payer MEDICARE, OTHER, SELFPAY | PROVIDERS: PCP Family Medicine; Visit Provider Podiatrist Foot & Ankle Surgery | DX: M21.371 Foot drop, right foot (principal); M21.612 Bunion of left foot; M21.611 Bunion of right foot; M20.41 Other hammer toe(s) (acquired), right foot; M20.42 Other hammer toe(s) (acquired), left foot; E11.42 Type 2 diabetes mellitus with diabetic polyneuropathy; L84 Corns and callosities; L60.3 Nail dystrophy; L97.511 Non-pressure chronic ulcer of other part of right foot limited to breakdown of skin; L97.521 Non-pressure chronic ulcer of other part of left foot limited to breakdown of skin; E11.621 Type 2 diabetes mellitus with foot ulcer; Z79.4 Long term (current) use of insulin | CPT/HCPCS: 11056; 11721; 99213 ==

== ENCOUNTER 2024-08-22 02:40 | Emergency (ER) | payer MEDICARE, OTHER, SELFPAY ==
[2024-08-22 02:55] VITALS: BP 124/64; PULSE 88; RESP 18; TEMP 37.1; O2SAT 96; BMI 49.4
[2024-08-22 03:44] LABS: Covid PCR NEGATIVE (Negative); Influenza A POSITIVE (Negative); Influenza B NEGATIVE (Negative); Respiratory Syncytial Virus Ce NEGATIVE (Negative)
--- NOTE | 2024-08-22 04:00 | W.ED.URI ---
HPI - URI/Sore Throat General: Chief Complaint: Upper Respiratory Infection Stated Complaint: Cough/chest congestion Time Seen by Provider: 08/22/24 03:51 History of Present Illness: Patient presents to the ER with upper respiratory infection type symptoms. Cough colds overall body aches. He has been around 1 person had influenza. This been going on for about 4 days. Patient was 96% on room air. Related Data Home Medications ?Medication ?Instructions ?Recorded ?Confirmed pregabalin 200 mg capsule (Lyrica) 200 mg PO Q12H 09/15/19 07/20/24 insulin human U-100 NPH-regulr 80 unit SUBCUT BID 06/20/20 07/20/24 70-30 mix 100 unit/mL subcutaneous susp (Humulin 70/30 U-100 Insulin) Held on 09/27/23. Instructions: see pcp montelukast 10 mg tablet 10 mg PO DAILY 07/24/21 07/20/24 albuterol sulfate 90 mcg/actuation See Rx Instructions .Route 05/01/22 07/20/24 aerosol inhaler .COMPLEX PRN Shortness Of Breath cetirizine 10 mg tablet (Zyrtec) 10 mg PO DAILY 05/01/22 07/20/24 diphenhydramine HCl 25 mg tablet 25 mg PO BID PRN Allergy Symptoms 05/01/22 07/20/24 (Benadryl Allergy) nystatin 100,000 unit/gram topical 1 applic topical BID 05/01/22 07/20/24 cream oxymetazoline 0.05 % nasal spray 2 spray intranasal Q12H PRN Nasal 05/01/22 07/20/24 (Nasal Chloe (oxymetazoline)) Congestion atorvastatin 40 mg tablet 40 mg PO DAILY 10/31/22 07/20/24 dapagliflozin propanediol 10 mg 10 mg PO DAILY 09/24/23 07/20/24 tablet (Farxiga) hydrocodone 5 mg-acetaminophen 325 See Rx Instructions .Route .COMPLEX 09/24/23 07/20/24 mg tablet pantoprazole 40 mg tablet,delayed 40 mg PO BID 09/24/23 07/20/24 release promethazine-DM 6.25 mg-15 mg/5 mL 5 ml PO Q4H PRN Cough 09/24/23 07/20/24 oral syrup furosemide 40 mg tablet 80 mg PO BID 07/20/24 07/20/24 potassium chloride 20 mEq meq PO 07/20/24 07/20/24 tablet,extended release(part/cryst) Previous Rx's ?Medication ?Instructions ?Recorded Diabetic shoes with 3 inserts #1 ea 04/24/22 metoprolol succinate 100 mg 50 mg (1/2 x 100 mg) PO DAILY #30 11/01/22 tablet,extended release 24 hr tabs insulin lispro 100 unit/mL See Rx Instructions .Route 09/27/23 subcutaneous solution (Humalog .COMPLEX #5 mL U-100 Insulin) azithromycin 250 mg tablet See Rx Instructions PO .COMPLEX #6 03/20/24 tabs quetiapine 100 mg tablet (Seroquel) 100 mg PO .HS #30 tabs 06/22/24 trazodone 300 mg tablet 300 mg PO BEDTIME #90 tabs 06/26/24 citalopram 40 mg tablet See Rx Instructions .Route 06/29/24 .COMPLEX #30 tabs lamotrigine 200 mg tablet See Rx Instructions .Route 06/29/24 .COMPLEX #30 tabs mupirocin 2 % topical ointment 1 applic topical TID 2 weeks #22 07/20/24 grams prazosin 2 mg capsule See Rx Instructions .Route 08/14/24 .COMPLEX #30 caps prazosin 5 mg capsule See Rx Instructions .Route 08/14/24 .COMPLEX #30 caps Allergies Allergy/AdvReac Type Severity Reaction Status Date / Time promethazine (From Phenergan) Allergy Unknown HARD TO Verified 07/20/24 10:15 BREATH Review of Systems General: Reports: 10 or more systems reviewed and unremarkable except in HPI and below PFSH ED PFSH: Medical History Chest pain Psychiatric care Generalized anxiety disorder Post-traumatic stress disorder, chronic Opioid contract exists Encounter for long-term use of opiate analgesic Lumbar back pain Surgical History History of colonoscopy History of elbow surgery History of lumbar fusion History of neck surgery 3x LAP-BAND surgery status Family History Other CAD (coronary artery disease) Cancer Diabetes Hypertension Psychiatric illness Social History (Reviewed 08/22/24 @ 04:00 by ROCIO Pinedo Smoking and tobacco/nicotine status: never used tobacco/nicotine Alcohol intake: never Substance/Drug Use: never Physical Exam Const: COMMON NORMALS: no acute distress, average body habitus, patient oriented x3, no limitations, healthy appearing, alert and well nourished HENMT: COMMON NORMALS: normocephalic, atraumatic, hearing grossly normal bilaterally, external ears normal and Normal external nose present HEAD & SCALP: normocephalic and atraumatic NOSE: Normal external nose present EXTERNAL EAR: Yes external ears normal Neck/C-Spine: COMMON NORMALS: no JVD Chest: COMMONS NORMALS: normal inspection of the chest and normal palpation of entire chest wall Resp: COMMON NORMALS: normal respiratory effort, No retractions, No use of accessory muscles and clear to auscultation bilaterally AUSCULTATION: clear to auscultation bilaterally Cardio: COMMON NORMALS: no JVD, regular rate, regular rhythm, S1 normal heart sound present, S2 normal heart sound present, No gallops present (Cardio), No clicks present (Cardio), No murmurs present (Cardio) and No rub (Cardio) RATE: regular rate RHYTHM: regular rhythm HEART SOUNDS: S1 normal heart sound present and S2 normal heart sound present GI: COMMON NORMALS: Normal to inspection, nondistended, normoactive bowel sounds present, Soft to palpation, non-tender, No hepatosplenomegaly present and no masses PALPATION: Yes Soft to palpation and Yes No hepatosplenomegaly present Neuro: COMMON NORMALS: patient oriented x3 SENSORIUM/ORIENTATION: Yes alert Course Vital Signs: Vital signs: Vital Signs Temperature 98.8 F 08/22/24 02:55 Pulse Rate 88 08/22/24 02:55 Respiratory Rate 18 08/22/24 02:55 Blood Pressure 124/64 08/22/24 02:55 Pulse Oximetry 96 08/22/24 02:55 Oxygen Delivery Me thod Room Air 08/22/24 02:55 MDM - URI/Sore Throat Medical Decision Making Patient tested influenza A positive. This been going on for about 4 days. Patient was able to keep his O2 sat about 96% or above on room air. Patient will be discharged home. Medical Records I reviewed the patient's medical records. Lab Data I reviewed the patient's lab results. Laboratory Results Coronavirus (PCR) Negative (Negative) 08/22/24 03:00 Influenza A (PCR) Positive (Negative) 08/22/24 03:00 Influenza Type B (PCR) Negative (Negative) 08/22/24 03:00 RSV (PCR) Negative (Negative) 08/22/24 03:00 No radiology studies performed this visit Discharge Plan Discharge Patient Disposition: Home Clinical Impression: Influenza A Condition: Stable Prescriptions: No Action pregabalin [Lyrica] 200 mg capsule 200 mg PO Q12H montelukast 10 mg tablet 10 mg PO DAILY (DME) Diabetic shoes with 3 inserts See Rx Instructions .Route .MEDSUPPLY Qty: 1 0RF Rx Instructions: As directed by [facility] trazodone 300 mg tablet 300 mg PO BEDTIME Qty: 90 0RF potassium chloride 20 mEq tablet,ER particles/crystals PO furosemide 40 mg tablet 80 mg PO BID mupirocin 2 % ointment 1 applic topical TID 14 Days Qty: 22 0RF quetiapine [Seroquel] 100 mg tablet 100 mg PO .HS Qty: 30 2RF citalopram 40 mg tablet See Rx Instructions .ROUTE .COMPLEX Qty: 30 11RF Dose Instruction: Take 1 tablet by mouth once daily at 10:00 PM Rx Instructions: Take 1 tablet by mouth once daily at 10:00 PM lamotrigine 200 mg tablet See Rx Instructions .ROUTE .COMPLEX Qty: 30 11RF Dose Instruction: Take 1 tablet by mouth once daily at 10:00 AM Rx Instructions: Take 1 tablet by mouth once daily at 10:00 AM prazosin 2 mg capsule See Rx Instructions .ROUTE .COMPLEX Qty: 30 3RF Dose Instruction: Take 1 capsule by mouth at bedtime Rx Instructions: Take 1 capsule by mouth at bedtime along with 5 mg to=7mg total prazosin 5 mg capsule See Rx Instructions .ROUTE .COMPLEX Qty: 30 3RF Dose Instruction: Take 1 capsule by mouth at bedtime Rx Instructions: Take 1 capsule by mouth at bedtime along with 2 mg to= 7mg total. Humulin 70/30 U-100 Insulin 100 unit/mL (70-30) suspension 80 unit SUBCUT BID Rx Instructions: per sliding scale azithromycin 250 mg tablet See Rx Instructions .ROUTE .COMPLEX Qty: 6 0RF Rx Instructions: take 500 mg today (day 1), then 250 mg for 4 days (days 2-5) cetirizine [Zyrtec] 10 mg Tablet 10 mg PO DAILY nystatin 100,000 unit/gram cream 1 applic TOPICAL BID diphenhydramine HCl [Benadryl Allergy] 25 mg Tablet 25 mg PO BID PRN (Reason: Allergy Symptoms) albuterol sulfate 90 mcg/actuation HFA aerosol inhaler See Rx Instructions .ROUTE .COMPLEX PRN (Reason: Shortness Of Breath) Rx Instructions: 2 puff inhaled every 4 to 6 hours as needed for shortness of breath oxymetazoline [Nasal Chloe (oxymetazoline)] 0.05 % Chloe,Non-Aerosol 2 spray INTRANASAL Q12H PRN (Reason: Nasal Congestion) atorvastatin 40 mg tablet 40 mg PO DAILY metoprolol succinate 100 mg tablet extended release 24 hr 50 mg PO DAILY Qty: 30 0RF hydrocodone-acetaminophen 5-325 mg tablet See Rx Instructions .ROUTE .COMPLEX Rx Instructions: TAKE 1 TABLET BY MOUTH EVERY 4 TO 6 HOURS NEEDED FOR PAIN. pantoprazole 40 mg tablet,delayed release (DR/EC) 40 mg PO BID promethazine-DM 6.25-15 mg/5 mL syrup 5 ml PO Q4H PRN (Reason: Cough) Farxiga 10 mg tablet 10 mg PO DAILY Humalog U-100 Insulin 100 unit/mL Solution See Rx Instructions .ROUTE .COMPLEX Qty: 5 0RF Rx Instructions: 141-180 4u,181-220 6u,221-260 8u,261-300 10u,301-350 12u, 351-400 14u, >400 16u Discharge Orders: Discharge ED (Routine); Ordered 08/22/24 Ordered By: Carlton Ruiz Referrals: Agustina Whiting DO [Primary Care Provider] - 1 week Patient Instructions: Influenza (DC) Activity Restrictions/Additional Instructions: Thank you for choosing [facility] for your healthcare needs today. Please realize that you were seen in the emergency department and that we are providing you with an emergency medical screening exam and this may not be a complete and all exclusive of all testing and/or medical workup we may need to determine your element or severity of your illness. It is very important that you follow-up as instructed with your primary care provider or specialist for the additional evaluation and to discuss your medical treatment plan. You may return to the emergency department should you have concerns or if your condition changes or worsens in any way. Print Language: Estonian Coding Level of Care Code ED Sr Vice President for Carito Arreguin
== END 2024-08-22 04:35 | disposition home or self-care (01) ==
PROVIDERS: Emergency Provider Emergency Medicine; PCP Family Medicine
DX: J10.1 Influenza due to other identified influenza virus with other respiratory manifestations (principal); Z11.52 Encounter for screening for COVID-19
CPT/HCPCS: 87637; 99283

== ENCOUNTER 2024-08-29 13:08 | Emergency (ER) | payer MEDICARE, OTHER, SELFPAY ==
[2024-08-29 13:10] VITALS: BP 134/73; PULSE 86; RESP 20; TEMP 36.8; O2SAT 94; BMI 48.6
--- NOTE | 2024-08-29 13:25 | XRR_ITS ---
PROCEDURE INFORMATION: Exam: XR Chest Exam date and time: 08/29/2024 1:36 PM Age: 54 years old Clinical indication: Cough and dyspnea; Additional info: Dyspnea/cough TECHNIQUE: Imaging protocol: Radiologic exam of the chest. Views: 1 view. COMPARISON: CT angio chest PE protcl [id number] 03/20/2024 1:34 PM FINDINGS: Lungs: Unremarkable. No consolidation. Pleural spaces: Unremarkable. No pleural effusion. No pneumothorax. Heart/Mediastinum: Unremarkable. No cardiomegaly. Bones/joints: Mild degenerative disease of bilateral acromioclavicular joints. There are mild degenerative changes of the glenohumeral joint. Post ACDF of the lower cervical spine. XR/XR chest 1V portable [id number] IMPRESSION: No acute chest
[2024-08-29 14:20] LABS: Influenza A POSITIVE (Negative); Influenza B NEGATIVE (Negative); Respiratory Syncytial Virus Ce NEGATIVE (Negative); SARS-CoV-2 PCR NEGATIVE (Negative)
[2024-08-29 14:49] VITALS: BP 137/66; PULSE 70; O2SAT 90
--- NOTE | 2024-08-29 14:49 | ED_ITS ---
HPI - URI/Sore Throat General: Chief Complaint: Upper Respiratory Infection Stated Complaint: chest conjestion Time Seen by Provider: 08/29/24 13:11 History of Present Illness: 54-year-old morbidly obese male with a h istory of congestive heart failure presents emergency room with cough congestion slight increase in shortness of breath last few days. Has been around several other people at work been sick. He does have oxygen at home only wears occasionally has been wearing a little more often. On room air he is 92 to 94% with 2 L he goes to 98 to 100%. He is getting short twinges of chest pain that are reproducible with deep breath and with palpation on the upper portion of his sternum. Associated symptoms: Reports chest pain (Last seconds, reproducible with deep breath palpation upper chest right of ); Deny abdominal pain, chills or fever(s) Related Data Home Medications ?Medication ?Instructions ?Recorded ?Confirmed pregabalin 200 mg capsule (Lyrica) 200 mg PO Q12H 10/0107/20/24 insulin human U-100 NPH-regulr 80 unit SUBCUT BID 01/3107/20/24 70-30 mix 100 unit/mL subcutaneous susp (Humulin 70/30 U-100 Insulin) Held on 09/27/23. Instructions: see pcp montelukast 10 mg tablet 10 mg PO DAILY 07/24/2101/06 albuterol sulfate 90 mcg/actuation See Rx Instructions .Route 05/01/22 07/20/24 aerosol inhaler .COMPLEX PRN Shortness Of Br eath cetirizine 10 mg tablet (Zyrtec) 10 mg PO DAILY 07/20/24 diphenhydramine HCl 25 mg tablet 25 mg PO BID PRN Ramon rgy Symptoms 05/01/22 07/20/24 (Benadryl Allergy) nystatin 100,000 unit/gram topical 1 applic topical BI D 05/01/22 07/20/24 cream oxymetazoline 0.05 % nasal spray 2 spray intranasal Q1 2H PRN Nasal 05/01/22 07/20/24 (Nasal [place] (oxymetazoline)) Congestion atorvastatin 40 mg tablet 40 mg PO DAILY 10/31/2201/06 dapagliflozin propanediol 10 mg 10 mg PO DAILY 4 07/20/24 tablet (Farxiga) hydrocodone 5 mg-acetaminophen 325 See Rx Instructions .Route .COMPLEX 09/24/23 07/20/24 mg tablet pantoprazole 40 mg tablet,delayed 40 mg PO BID 4 07/20/24 release promethazine-DM 6.25 mg-15 mg/5 mL 5 ml PO Q4H PRN Cou gh 09/24/23 07/20/24 oral syrup furosemide 40 mg tablet 80 mg PO BID 07/20/24 potassium chloride 20 mEq meq PO 07/20/24 07/20/24 tablet,extended release(part/cryst) Previous Rx's ?Medication ?Instructions ?Recorded Diabetic shoes with 3 inserts #1 ea 04/24/22 metoprolol succinate 100 mg 50 mg (1/2 x 100 mg) PO DA NANCY #30 11/01/22 tablet,extended release 24 hr tabs insulin lispro 100 unit/mL See Rx Instructions .Route 09/27/23 subcutaneous solution (Humalog .COMPLEX #5 mL U-100 Insulin) azithromycin 250 mg tablet See Rx Instructions PO .COM PLEX #6 03/20/24 tabs quetiapine 100 mg tablet (Seroquel) 100 mg PO .HS #30 tabs 06/22/24 trazodone 300 mg tablet 300 mg PO BEDTIME #90 tabs 1 08/27/23 citalopram 40 mg tablet See Rx Instructions .Route 1 08/30/23 .COMPLEX #30 tabs lamotrigine 200 mg tablet See Rx Instructions .Route 1 08/30/23 .COMPLEX #30 tabs mupirocin 2 % topical ointment 1 applic topical TID 2 weeks #22 07/20/24 grams prazosin 2 mg capsule See Rx Instructions .Route 0 08/14/24 .COMPLEX #30 caps prazosin 5 mg capsule See Rx Instructions .Route 0 08/14/24 .COMPLEX #30 caps oseltamivir 75 mg capsule (Tamiflu) 75 mg PO BID 5 day s #10 caps 08/29/24 Allergies Allergy/AdvReac Type Severity Reaction Status Date / Time promethazine (From Phenergan) Allergy Unknown HARD TO Verified 07/20/24 10:15 BREATH Review of Systems Const: Denies: fever(s) or chills Card: Reports: chest pain (Last seconds, reproducible with deep breath palpation upper chest right of ) Resp: Reports: dyspnea and non-productive cough GI: Denies: abdominal pain : Denies: dysuria, urinary frequency or urinary urgency Musc: Denies: neck pain or back pain Skin/Breast: Denies: rash PFSH ED PFSH: Medical History Chest pain Psychiatric care Generalized anxiety disorder Post-traumatic stress disorder, chronic Opioid contract exists Encounter for long-term use of opiate analgesic Lumbar back pain Surgical History History of colonoscopy History of elbow surgery History of lumbar fusion History of neck surgery 3x LAP-BAND surgery status Family History Other CAD (coronary artery disease) Cancer Diabetes Hypertension Psychiatric illness Social History Smoking and tobacco/nicotine status: never used tobacco/nicotine Alcohol intake: never Substance/Drug Use: never Physical Exam Const: COMMON NORMALS: no acute distress GENERAL APPEARANCE: cooperative and comfortable ORIENTATION/CONSCIOUSNESS: Yes awake, Yes oriented to person, Yes oriented to place and Yes oriented to time HENMT: COMMON NORMALS: normocephalic, atraumatic and hearing grossly normal bilaterally HEAD & SCALP: normocephalic and atraumatic Resp: COMMON NORMALS: normal respiratory effort, No retractions, No use of accessory muscles and clear to auscultation bilaterally AUSCULTATION: clear to auscultation bilaterally Cardio: COMMON NORMALS: regular rate, regular rhythm and No murmurs present (Cardio) RATE: regular rate RHYTHM: regular rhythm GI: COMMON NORMALS: Soft to palpation and No hepatosplenomegaly present AUSCULTATION: Yes normoactive bowel sounds PALPATION: Yes Soft to palpation, No Tenderness to palpation present (GI), No Guarding due to palpation present (GI) and Yes No hepatosplenomegaly present Extremity: COMMON NORMALS: normal to inspection, capillary refill normal, no clubbing, cyanosis or edema, no calf tenderness and no pedal edema Neuro: SENSORIUM/ORIENTATION: Yes oriented to person, Yes oriented to place and Yes oriented to time Skin: COMMON NORMALS: no rashes or lesions noted GENERAL SKIN EXAM: no rashes or lesions noted Course Vital Signs: Vital signs: Vital Signs Temperature 98.3 F 08/29/24 13:10 Pulse Rate 70 08/29/24 14:49 Respiratory Rate 20 H 08/29/24 13:10 Blood Pressure 137/66 08/29/24 14:49 Pulse Oximetry 90 08/29/24 14:49 Oxygen Delivery Me thod Room Air 08/29/24 13:10 MDM - URI/Sore Throat Medical Decision Making Chest x-ray unremarkable labs show patient with positive. Today his sats are at baseline on room air and do improve a little bit with oxygen he does have oxygen at home Tamiflu prescribed 1 tablet twice a day for 5 days supportive cares follow-up as needed. EKG did not show any acute changes normal sinus rhythm reviewed as found on the chart. Discussed with the patient supportive cares. Medical Records I reviewed the patient's medical records. Lab Data I reviewed the patient's lab results. Radiology Impressions Chest X-Ray 08/29/24 13:25 IMPRESSION: No acute chest Laboratory Results Coronavirus (PCR) Negative (Negative) 08/29/24 13:31 Influenza A (PCR) Positive (Negative) 08/29/24 13:31 Influenza Type B (PCR) Negative (Negative) 08/29/24 13:31 RSV (PCR) Negative (Negative) 08/29/24 13:31 All radiology interpretation(s) finalized by discharge Discharge Plan Discharge Patient Disposition: Home Clinical Impression: Influenza Condition: Stable Prescriptions: New oseltamivir [Tamiflu] 75 mg capsule 75 mg PO BID 5 Days Qty: 10 0RF No Action pregabalin [Lyrica] 200 mg capsule 200 mg PO Q12H montelukast 10 mg tablet 10 mg PO DAILY (DME) Diabetic shoes with 3 inserts See Rx Instructions .Route .MEDSUPPLY Qty: 1 0RF Rx Instructions: As directed by [facility] trazodone 300 mg tablet 300 mg PO BEDTIME Qty: 90 0RF potassium chloride 20 mEq tablet,ER particles/crystals PO furosemide 40 mg tablet 80 mg PO BID mupirocin 2 % ointment 1 applic topical TID 14 Days Qty: 22 0RF quetiapine [Seroquel] 100 mg tablet 100 mg PO .HS Qty: 30 2RF citalopram 40 mg tablet See Rx Instructions .ROUTE .COMPLEX Qty: 30 11RF Dose Instruction: Take 1 tablet by mouth once daily at 10:00 PM Rx Instructions: Take 1 tablet by mouth once daily at 10:00 PM lamotrigine 200 mg tablet See Rx Instructions .ROUTE .COMPLEX Qty: 30 11RF Dose Instruction: Take 1 tablet by mouth once daily at 10:00 AM Rx Instructions: Take 1 tablet by mouth once daily at 10:00 AM prazosin 2 mg capsule See Rx Instructions .ROUTE .COMPLEX Qty: 30 3RF Dose Instruction: Take 1 capsule by mouth at bedtime Rx Instructions: Take 1 capsule by mouth at bedtime along with 5 mg to=7mg total prazosin 5 mg capsule See Rx Instructions .ROUTE .COMPLEX Qty: 30 3RF Dose Instruction: Take 1 capsule by mouth at bedtime Rx Instructions: Take 1 capsule by mouth at bedtime along with 2 mg to= 7mg total. Humulin 70/30 U-100 Insulin 100 unit/mL (70-30) suspension 80 unit SUBCUT BID Rx Instructions: per sliding scale azithromycin 250 mg tablet See Rx Instructions .ROUTE .COMPLEX Qty: 6 0RF Rx Instructions: take 500 mg today (day 1), then 250 mg for 4 days (days 2-5) cetirizine [Zyrtec] 10 mg Tablet 10 mg PO DAILY nystatin 100,000 unit/gram cream 1 applic TOPICAL BID diphenhydramine HCl [Benadryl Allergy] 25 mg Tablet 25 mg PO BID PRN (Reason: Allergy Symptoms) albuterol sulfate 90 mcg/actuation HFA aerosol inhaler See Rx Instructions .ROUTE .COMPLEX PRN (Reason: Shortness Of Breath) Rx Instructions: 2 puff inhaled every 4 to 6 hours as needed for shortness of breath oxymetazoline [Nasal [place] (oxymetazoline)] 0.05 % [place],Non-Aerosol 2 spray INTRANASAL Q12H PRN (Reason: Nasal Congestion) atorvastatin 40 mg tablet 40 mg PO DAILY metoprolol succinate 100 mg tablet extended release 24 hr 50 mg PO DAILY Qty: 30 0RF hydrocodone-acetaminophen 5-325 mg tablet See Rx Instructions .ROUTE .COMPLEX Rx Instructions: TAKE 1 TABLET BY MOUTH EVERY 4 TO 6 HOURS NEEDED FOR PAIN. pantoprazole 40 mg tablet,delayed release (DR/EC) 40 mg PO BID promethazine-DM 6.25-15 mg/5 mL syrup 5 ml PO Q4H PRN (Reason: Cough) Farxiga 10 mg tablet 10 mg PO DAILY Humalog U-100 Insulin 100 unit/mL Solution See Rx Instructions .ROUTE .COMPLEX Qty: 5 0RF Rx Instructions: 141-180 4u,181-220 6u,221-260 8u,261-300 10u,301-350 12u, 351-400 14u, >400 16u Discharge Orders: Discharge ED (Routine); Ordered 08/29/24 Ordered By: David Daniels Referrals: Agustina Whiting, [Primary Care Provider] - Discharge Diet: Usual diet Discharge Activity: Increase activity as tolerated Patient Instructions: Influenza (ED), Opioid Safety, Pain Management Activity Restrictions/Additional Instructions: Thank you for choosing [facility] for your healthcare needs today. It is very important that you follow up as instructed or that you return to the Emergency Department should you have concerns or if your condition changes or worsens in any way. Print Language: Turkmen Coding Level of Care Code ED Contact Center Associate for Carito Arreguin
--- NOTE | 2024-08-29 14:56 | ECG_ITS ---
[facility] 2024-08[facility]29 Pat Name: Sergei Lucas Department: Room: Gender: Male Organizational Development Specialist: : 1970 Requested By: David Boothe Order Number: [id number] Sergio MD: CRISTIAN HENRY Measurements Intervals [place] Rate: 71 P: 37 DC: 180 QRS: 3 QRSD: 101 T: 52 QT: 387 QTc: 422 Interpretive Statements SINUS RHYTHM Compared to ECG 03/20/2024 13:03:31 Sinus tachycardia no longer present Myocardial infarct finding no longer present Electronically Signed On 08-29-2024 19:14:31 PATIENT SUPPORT ASSOCIATE by CRISTIAN HENRY [id number]
== END 2024-08-29 14:49 | disposition home or self-care (01) ==
PROVIDERS: Emergency Provider Family Medicine; PCP Family Medicine
DX: J10.1 Influenza due to other identified influenza virus with other respiratory manifestations (principal); Z11.52 Encounter for screening for COVID-19; I50.9 Heart failure, unspecified
CPT/HCPCS: 71045; 87637; 93005; 99284

== ENCOUNTER 2024-08-30 14:27 | Emergency (ER) | payer OTHER, MEDICARE, SELFPAY ==
[2024-08-30] VITALS (8 sets, daily range): BP systolic 153–172; BP diastolic 53–72; PULSE 68–88; RESP 18–26; TEMP 36.8; O2SAT 90–97; BMI 50.1
--- NOTE | 2024-08-30 14:34 | ECG_ITS ---
[facility]: 2024-08-30 Pat Name: Sergei Lucas Department: Room: Gender: Male Chief Dispatcher Service: : 1970 Requested By: Kofi Vu Order Number: [id number] Sergio MD: Neel Pandey M.D. Measurements Intervals [place] Rate: 76 P: 47 FL: 183 QRS: 109 QRSD: 85 T: 30 QT: 353 QTc: 398 Interpretive Statements SINUS RHYTHM RIGHT AXIS DEVIATION [QRS AXIS > 100] LOW QRS VOLTAGE IN PRECORDIAL LEADS [QRS DEFLECTION < 1.0 mV IN CHEST LEADS] ANTEROSEPTAL MYOCARDIAL INFARCTION , PROBABLY OLD [40+ ms Q WAVE IN V1-V4] Compared to ECG 08/29/2024 14:56:59 Right-axis deviation now present Low QRS voltage now present Poor R wave progression Myocardial infarct finding now present Electronically Signed On 08-30-2024 18:40:29 [employer] by Neel Pandey M.D. [email or web address]
--- NOTE | 2024-08-30 14:52 | XRR_ITS ---
PROCEDURE INFORMATION: Exam: XR Chest Exam date and time: 08/30/2024 2:58 PM Age: 54 years old Clinical indication: Cough and dyspnea and shortness of breath TECHNIQUE: Imaging protocol: Radiologic exam of the chest. Views: 1 view. COMPARISON: CR (CHEST, ) 08/29/2024 1:36 PM FINDINGS: Lungs: Peribronchial wall thickening. No consolidation. Pleural spaces: Unremarkable. No pleural effusion. No pneumothorax. Heart/Mediastinum: Unremarkable. No cardiomegaly. Bones/joints: ACDF hardware noted in the cervical spine. Visualized osseous structures are intact. XR/XR chest 1V portable [id number] IMPRESSION: Bronchitis.
--- NOTE | 2024-08-30 15:17 | W.ED.SOB ---
HPI - SOB/Dyspnea General: Chief Complaint: Shortness of Breath/Dyspnea Stated Complaint: trouble breathing Time Seen by Provider: 08/30/24 14:52 History of Present Illness: HPI Narrative: Chief complaint shortness of breath. The patient states 7 or 8 days ago he started having fever nasal congestion and drainage body aches and cough. The cough is gotten worse and he started having increasing shortness of breath. He denies history of COPD but does have asthma and has albuterol inhalers at home but he states he has not been using them. He has diabetes and congestive heart failure. He is not having any chest pain except for if he coughs he states his chest is sore from coughing. No pleurisy. No recent mobility or leg pain or swelling or history of PE or DVT. No abdominal pain encephalopathy cough. No vomiting or diarrhea. He is uncertain if he still having fevers but he states his cough is just very painful and he states it is hard for him to catch his breath when he has coughing fits. He states he is coughing up lots of mucus. He states he has lots of nasal congestion and drainage and chest congestion. No chest pain other than if he coughs he feels sore from coughing so many times. No black or bloody stools. He states he is taking his diuretics. He has oxygen at home that he can wear as needed 1 and half to 2 L. Related Data Home Medications ?Medication ?Instructions ?Recorded ?Confirmed pregabalin 200 mg capsule (Lyrica) 200 mg PO Q12H 09/15/19 08/30/24 insulin human U-100 NPH-regulr 80 unit SUBCUT BID 06/20/20 08/30/24 70-30 mix 100 unit/mL subcutaneous susp (Humulin 70/30 U-100 Insulin) Held on 09/27/23. Instructions: see pcp montelukast 10 mg tablet 10 mg PO DAILY 07/24/21 08/30/24 albuterol sulfate 90 mcg/actuation 2 puff inhalation .Q4-6H PRN 05/01/22 08/30/24 aerosol inhaler Shortness Of Breath cetirizine 10 mg tablet (Zyrtec) 10 mg PO DAILY 05/01/22 08/30/24 diphenhydramine HCl 25 mg tablet 25 mg PO BID PRN Allergy Symptoms 05/01/22 08/30/24 (Benadryl Allergy) oxymetazoline 0.05 % nasal spray 2 spray intranasal Q12H PRN Nasal 05/01/22 08/30/24 (Nasal [place] (oxymetazoline)) Congestion atorvastatin 40 mg tablet 40 mg PO DAILY 10/31/22 08/30/24 dapagliflozin propanediol 10 mg 10 mg PO DAILY 09/24/23 08/30/24 tablet (Farxiga) hydrocodone 5 mg-acetaminophen 325 1 tab PO .Q4-6H PRN Pain 09/24/23 08/30/24 mg tablet pantoprazole 40 mg tablet,delayed 40 mg PO BID 09/24/23 08/30/24 release furosemide 40 mg tablet 80 mg PO BID 07/20/24 08/30/24 potassium chloride 20 mEq 20 meq PO DAILY 07/20/24 08/30/24 tablet,extended release(part/cryst) citalopram 40 mg tablet 40 mg PO .@10PM 08/30/24 08/30/24 fluticasone propionate 50 2 spray intranasal DAILY 08/30/24 08/30/24 mcg/actuation nasal spray,suspension ipratropium bromide 42 mcg (0.06 1 spray intranasal DAILY 08/30/24 08/30/24 %) nasal spray lamotrigine 200 mg tablet 200 mg PO .DAILY@10AM 08/30/24 08/30/24 metoprolol succinate 100 mg 100 mg PO DAILY 08/30/24 08/30/24 tablet,extended release 24 hr quetiapine 100 mg tablet (Seroquel) 100 mg PO BEDTIME 08/30/24 08/30/24 Previous Rx's ?Medication ?Instructions ?Recorded Diabetic shoes with 3 inserts #1 ea 04/24/22 insulin lispro 100 unit/mL See Rx Instructions .Route 09/27/23 subcutaneous solution (Humalog .COMPLEX #5 mL U-100 Insulin) trazodone 300 mg tablet 300 mg PO BEDTIME #90 tabs 06/26/24 mupirocin 2 % topical ointment 1 applic topical TID 2 weeks #22 07/20/24 grams prazosin 2 mg capsule See Rx Instructions .Route 08/14/24 .COMPLEX #30 caps prazosin 5 mg capsule See Rx Instructions .Route 08/14/24 .COMPLEX #30 caps oseltamivir 75 mg capsule (Tamiflu) 75 mg PO BID 5 days #10 caps 08/29/24 amoxicillin 875 mg-potassium 1 tab PO BID #14 tabs 08/30/24 clavulanate 125 mg tablet azithromycin 250 mg tablet See Rx Instructions PO .COMPLEX #6 08/30/24 (Zithromax Z-Hesham) tabs Allergies Allergy/AdvReac Type Severity Reaction Status Date / Time promethazine (From Phenergan) Allergy Unknown HARD TO Verified 07/20/24 10:15 BREATH PFSH ED PFSH: Medical History Chest pain Psychiatric care Generalized anxiety disorder Post-traumatic stress disorder, chronic Opioid contract exists Encounter for long-term use of opiate analgesic Lumbar back pain Surgical History History of colonoscopy History of elbow surgery History of lumbar fusion History of neck surgery 3x LAP-BAND surgery status Family History Other CAD (coronary artery disease) Cancer Diabetes Hypertension Psychiatric illness Social History Smoking and tobacco/nicotine status: never used tobacco/nicotine Alcohol intake: never Substance/Drug Use: never Physical Exam Narrative: EXAM NARRATIVE: Patient is coughing frequently. He holds his chest and has pain with coughing. He has nasal congestion and is mouth breathing. He has tachypnea after he has coughing fits. If he tries to talk he starts coughing a lot. He has diminished breath sounds bilaterally with bilateral expiratory wheezing and prolonged expiratory phase. No crackles. Heart regular rhythm. Abdomen soft nontender no guarding or rebound. Neck is supple. He has nasal congestion drainage. Moist mucous membranes. No facial swelling. No signs of trauma to the head. Pupils are equal and reactive and full range ocular motion and normal conjunctive up. Extremities warm well-perfused. No pitting edema in his legs. No calf tenderness. No swelling. He moves his back freely. He is alert and oriented. No facial droop or arm weakness. He is alert and oriented and cooperative and appropriate affect. He is in moderate distress when he is coughing. Course Vital Signs: Vital signs: Vital Signs Temperature 98.2 F 08/30/24 14:28 Pulse Rate 76 08/30/24 17:17 Respiratory Rate 26 H 08/30/24 17:17 Blood Pressure 153/65 08/30/24 17:17 Pulse Oximetry 95 08/30/24 17:17 Oxygen Delivery Me thod Nasal Cannula 08/30/24 17:17 Oxygen Flow Rate 2 08/30/24 17:17 MDM - SOB/Dyspnea Medical Decision Making Patient reports fever cough nasal congestion drainage body aches and now shortness of breath with a history of asthma on to 2 L of oxygen at home as needed. Here he is 89 to 91% on room air. He is coughing frequently and has a lot of nasal drainage and congestion as well as frequent coughing. I ordered DuoNeb and albuterol treatment, chest x-ray to evaluate for pneumonia, COVID influenza A and B and RSV test, proBNP and CBC and CMP and EKG. Patient denies symptoms suggestive of acute [place]. CHF is less likely. PE would be unlikely by exam or history. Patient EKG shows to my interpretation sinus rhythm with rate of [address] segment changes. He does have some low QRS voltage. Pericardial effusions unlikely by exam and history. I ordered 125 mg methylprednisolone IV after informed discussion with the patient for his bronchospasm. Chest x-ray negative for focal infiltrate per radiology however patient COVID influenza and RSV were negative and his white count is elevated. Will go ahead and treat for possible pneumonia as he states he is had recurrent pneumonia with the symptoms in the past. Patient proBNP mildly elevated but unlikely clinical significance. Patient coughing much less and appears improved. Will give 1 more round of albuterol and DuoNeb here. Patient given 2 g Rocephin IV. Will discharge home on Augmentin and azithromycin. I advised limits of ED evaluation. Patient symptoms not suggestive of PE. He reports fever nasal congestion drainage and cough more consistent with infectious process with probable COPD exacerbation. Advise close return and follow-up instructions. Patient agrees with plan after informed discussion understands limits of ED evaluation and wants to continue outpatient care Lab Data 08/30/24 15:15 08/30/24 15:15 Labs/Radiology: Radiology Impressions Chest X-Ray 08/30/24 14:52 IMPRESSION: Bronchitis. Laboratory Results WBC 14.37 10^3/uL (3.29-11.43) H 08/30/24 15:15 RBC 3.86 10^6/uL (3.85-5.65) 08/30/24 15:15 Hgb 11.40 g/dL (11.27-16.99) 08/30/24 15:15 Hct 34.8 % (37-53) L 08/30/24 15:15 MCV 90.2 fl (82-101) 08/30/24 15:15 MCH 29.5 pg (27-33) 08/30/24 15:15 MCHC 32.8 g/dL (30-55) 08/30/24 15:15 RDW 16.6 % (12.1-15.1) H 08/30/24 15:15 Plt Count 192 10^3/cmm (157-399) 08/30/24 15:15 MPV 10.5 fL (7.4-10.4) H 08/30/24 15:15 Neut % (Auto) 77.8 % 08/30/24 15:15 Lymph % (Auto) 14.2 % 08/30/24 15:15 [place] % (Auto) 5.6 % 08/30/24 15:15 Eos % (Auto) 0.6 % 08/30/24 15:15 Baso % (Auto) 0.3 % 08/30/24 15:15 Neut # (Auto) 11.18 10^3/uL (1.8-7.7) H 08/30/24 15:15 Lymph # (Auto) 2.0 10^3/uL (0.8-4.8) 08/30/24 15:15 [place] # (Auto) 0.8 10^3/uL (0.2-0.9) 08/30/24 15:15 Eos # (Auto) 0.1 10^3/uL (0.0-0.8) 08/30/24 15:15 Baso # (Auto) 0.1 10^3/uL (0.0-0.1) 08/30/24 15:15 Nucleated RBC % (auto) 0 % 08/30/24 15:15 Nucleated RBCs # 0.0 /100WBC 08/30/24 15:15 Sodium 142 mmol/L (136-145) 08/30/24 15:15 Potassium 3.7 mmol/L (3.5-5.1) 08/30/24 15:15 Chloride 105 mmol/L (98-107) 08/30/24 15:15 Carbon Dioxide 24 mmol/L (22-29) 08/30/24 15:15 Anion Gap 16.7 (5-19) 08/30/24 15:15 BUN 14 mg/dL (6-20) 08/30/24 15:15 Creatinine 1.1 mg/dL (0.7-1.2) 08/30/24 15:15 GFR Calculation 69.8 mL/min (90-130) L 08/30/24 15:15 Glucose 160 mg/dL (65-115) H 08/30/24 15:15 Calculated Osmolality 298 mOsm/kg (285-295) H 08/30/24 15:15 Calcium 8.2 mg/dL (8.5-10.5) L 08/30/24 15:15 Total Bilirubin 0.7 mg/dL (0.15-1.2) 08/30/24 15:15 AST 27 U/L (0-40) 08/30/24 15:15 ALT 21 U/L (0-41) 08/30/24 15:15 Alkaline Phosphatase 108 U/L (40-130) 08/30/24 15:15 NT-Pro-B Natriuret Pep 442 pg/mL (0-125) H 08/30/24 15:15 Total Protein 6.8 g/dL (6.6-8.7) 08/30/24 15:15 Albumin 3.4 g/dL (3.5-5.2) L 08/30/24 15:15 Globulin 3.4 g/dL (1.3-4.6) 08/30/24 15:15 Coronavirus (PCR) Negative (Negative) 08/30/24 15:50 Influenza A (PCR) Negative (Negative) 08/30/24 15:50 Influenza Type B (PCR) Negative (Negative) 08/30/24 15:50 RSV (PCR) Negative (Negative) 08/30/24 15:50 All radiology interpretation(s) finalized by discharge Discharge Plan Discharge Patient Disposition: Home Clinical Impression: COPD with acute exacerbation Acute bronchitis Qualifiers: Bronchitis organism: unspecified organism Qualified Code(s): J20.9 - Acute bronchitis, unspecified Condition: Stable Prescriptions: New amoxicillin-pot clavulanate 875-125 mg tablet 1 tab PO BID Qty: 14 0RF azithromycin [Zithromax Z-Hesham] 250 mg tablet See Rx Instructions .ROUTE .COMPLEX Qty: 6 0RF Rx Instructions: For 250 mg dose pack: take 500 mg today (day 1), then 250 mg for 4 days (days 2-5) No Action pregabalin [Lyrica] 200 mg capsule 200 mg PO Q12H montelukast 10 mg tablet 10 mg PO DAILY (DME) Diabetic shoes with 3 inserts See Rx Instructions .Route .MEDSUPPLY Qty: 1 0RF Rx Instructions: As directed by [facility] trazodone 300 mg tablet 300 mg PO BEDTIME Qty: 90 0RF potassium chloride 20 mEq tablet,ER particles/crystals 20 meq PO DAILY furosemide 40 mg tablet 80 mg PO BID mupirocin 2 % ointment 1 applic topical TID 14 Days Qty: 22 0RF prazosin 2 mg capsule See Rx Instructions .ROUTE .COMPLEX Qty: 30 3RF Dose Instruction: Take 1 capsule by mouth at bedtime Rx Instructions: Take 1 capsule by mouth at bedtime along with 5 mg to=7mg total prazosin 5 mg capsule See Rx Instructions .ROUTE .COMPLEX Qty: 30 3RF Dose Instruction: Take 1 capsule by mouth at bedtime Rx Instructions: Take 1 capsule by mouth at bedtime along with 2 mg to= 7mg total. Humulin 70/30 U-100 Insulin 100 unit/mL (70-30) suspension 80 unit SUBCUT BID Rx Instructions: per sliding scale ipratropium bromide 42 mcg (0.06 %) spray,non-aerosol 1 spray INTRANASAL DAILY fluticasone propionate 50 mcg/actuation spray,suspension 2 spray INTRANASAL DAILY lamotrigine 200 mg tablet 200 mg PO .DAILY@10AM citalopram 40 mg tablet 40 mg PO .@10PM metoprolol succinate 100 mg tablet extended release 24 hr 100 mg PO DAILY quetiapine [Seroquel] 100 mg tablet 100 mg PO BEDTIME cetirizine [Zyrtec] 10 mg Tablet 10 mg PO DAILY diphenhydramine HCl [Benadryl Allergy] 25 mg Tablet 25 mg PO BID PRN (Reason: Allergy Symptoms) albuterol sulfate 90 mcg/actuation HFA aerosol inhaler 2 puff inhalation .Q4-6H PRN (Reason: Shortness Of Breath) oxymetazoline [Nasal [place] (oxymetazoline)] 0.05 % [place],Non-Aerosol 2 spray INTRANASAL Q12H PRN (Reason: Nasal Congestion) atorvastatin 40 mg tablet 40 mg PO DAILY hydrocodone-acetaminophen 5-325 mg tablet 1 tab PO .Q4-6H PRN (Reason: Pain) pantoprazole 40 mg tablet,delayed release (DR/EC) 40 mg PO BID dapagliflozin propanediol [Farxiga] 10 mg tablet 10 mg PO DAILY insulin lispro [Humalog U-100 Insulin] 100 unit/mL Solution See Rx Instructions .ROUTE .COMPLEX Qty: 5 0RF Rx Instructions: Use per sliding scale. bs 141-180 4u,181-220 6u,221-260 8u,261-300 10u,301-350 12u, 351-400 14u, >400 16u oseltamivir [Tamiflu] 75 mg capsule 75 mg PO BID 5 Days Qty: 10 0RF Discharge Orders: Discharge ED (Routine); Ordered 08/30/24 Ordered By: Gilbert Persaud Referrals: Agustina Whiting DO [Primary Care Provider] - Patient Instructions: Opioid Safety, Pain Management Print Language: Frisian Coding Level of Care Code ED Technology Assistant for Carito Arreguin
[2024-08-30] MEDS: methylPREDNISolone sod succ 125 mg/2 mL INJ IVP (15:23)
[2024-08-30 15:24] LABS: Basophils # 0.1 10^3/uL (0.0-0.1); Basophils % 0.3 %; Eosinophils # 0.1 10^3/uL (0.0-0.8); Eosinophils % 0.6 %; Hematocrit 34.8 % (37-53); Lymphocytes % 14.2 %; Mean Corpuscular HGB Conc 32.8 g/dL (30-55); Mean Corpuscular Hemoglobin 29.5 pg (27-33); Mean Corpuscular Volume 90.2 fl (82-101); Mean Platelet Volume 10.5 fL (7.4-10.4); Monocytes # 0.8 10^3/uL (0.2-0.9); Monocytes % 5.6 %; Neutrophils # 11.18 10^3/uL (1.8-7.7); Neutrophils % 77.8 %; Nucleated Red Blood Cells % 0 %; Platelet Count 192 10^3/cmm (157-399); Red Blood Count 3.86 10^6/uL (3.85-5.65); Red Cell Distribution Width 16.6 % (12.1-15.1); White Blood Count 14.37 10^3/uL (3.29-11.43)
[2024-08-30] MEDS: ipratropium-albuterol 3 mL Neb INHALATION ×2 (15:24→18:12)
[2024-08-30] MEDS: albuterol 2.5 mg/3 mL Neb INHALATION ×2 (15:24→18:12)
[2024-08-30] MEDS: benzonatate 100 mg Capsule 200 MG PO (15:48)
[2024-08-30 15:50] LABS: Alanine Aminotransferase 21 U/L (0-41); Albumin Level 3.4 g/dL (3.5-5.2); Alkaline Phosphatase 108 U/L (40-130); Anion Gap 16.7 (5-19); Aspartate Amino Transferase 27 U/L (0-40); Blood Urea Nitrogen 14 mg/dL (6-20); Calcium 8.2 mg/dL (8.5-10.5); Carbon Dioxide 24 mmol/L (22-29); Chloride 105 mmol/L (98-107); Creatinine Clr Calc Pharmacy 109.5783; Globulin 3.4 g/dL (1.3-4.6); Glomerular Filtration Rate 69.8 mL/min (90-130); Glucose 160 mg/dL (65-115); NT Pro B Type Natriuretic Pept 442 pg/mL (0-125); Osmolality Calculated 298 mOsm/kg (285-295); Potassium 3.7 mmol/L (3.5-5.1); Sodium 142 mmol/L (136-145); Total Bilirubin 0.7 mg/dL (0.15-1.2); Total Protein 6.8 g/dL (6.6-8.7)
--- NOTE | 2024-08-30 16:24 | PC.PHAR ---
Pt gets medications from [facility] and mail order [facility]. Pt has not taken any medications yet today, was barely able to get out of bed and get here due to shortness of breath.
[2024-08-30 16:31] LABS: Influenza A NEGATIVE (Negative); Influenza B NEGATIVE (Negative); Respiratory Syncytial Virus Ce NEGATIVE (Negative); SARS-CoV-2 PCR NEGATIVE (Negative)
--- NOTE | 2024-08-30 16:41 | PC.NURSE ---
PT PLACED ON 2L NC DUE TO OXYGEN SATURATION DROPPING WHILE PT COUGHS.
[2024-08-30] MEDS: cefTRIAXone 2,000 mg SDV 2000 MG IVP (17:15)
--- NOTE | 2024-08-30 18:44 | ED_ITS ---
<Statement entered by Gilbert Persaud MD - 08/30/24 21:30> this chart created in error. please see other ED chart HPI - SOB/Dyspnea 2 General: Chief Complaint: Shortness of Breath/Dyspnea Stated Complaint: trouble breathing Time Seen by Provider: 08/30/24 14:52 History of Present Illness: HPI Narrative: chart created in error Related Data Home Medications ?Medication ?Instructions ?Recorded ?Confirmed pregabalin 200 mg capsule (Lyrica) 200 mg PO Q12H 10/0108/30/24 insulin human U-100 NPH-regulr 80 unit SUBCUT BID 01/3108/30/24 70-30 mix 100 unit/mL subcutaneous susp (Humulin 70/30 U-100 Insulin) Held on 09/27/23. Instructions: see pcp montelukast 10 mg tablet 10 mg PO DAILY 07/24/2108/15 albuterol sulfate 90 mcg/actuation 2 puff inhalation . Q4-6H PRN 05/01/22 08/30/24 aerosol inhaler Shortness Of Breath cetirizine 10 mg tablet (Zyrtec) 10 mg PO DAILY 08/30/24 diphenhydramine HCl 25 mg tablet 25 mg PO BID PRN Ramon rgy Symptoms 05/01/22 08/30/24 (Benadryl Allergy) oxymetazoline 0.05 % nasal spray 2 spray intranasal Q1 2H PRN Nasal 05/01/22 08/30/24 (Nasal [place] (oxymetazoline)) Congestion atorvastatin 40 mg tablet 40 mg PO DAILY 10/31/2208/15 dapagliflozin propanediol 10 mg 10 mg PO DAILY 08/30/24 tablet (Farxiga) hydrocodone 5 mg-acetaminophen 325 1 tab PO .Q4-6H PRN Pain 09/24/23 08/30/24 mg tablet pantoprazole 40 mg tablet,delayed 40 mg PO BID 4 08/30/24 release furosemide 40 mg tablet 80 mg PO BID 07/20/24 potassium chloride 20 mEq 20 meq PO DAILY 07/20/24 tablet,extended release(part/cryst) citalopram 40 mg tablet 40 mg PO .@10PM 08/30/24 fluticasone propionate 50 2 spray intranasal DAILY 08/30/24 mcg/actuation nasal spray,suspension ipratropium bromide 42 mcg (0.06 1 spray intranasal DA NANCY 08/30/24 08/30/24 %) nasal spray lamotrigine 200 mg tablet 200 mg PO .DAILY@10AM 08/30/24 metoprolol succinate 100 mg 100 mg PO DAILY 08/30/24 0 08/30/24 tablet,extended release 24 hr quetiapine 100 mg tablet (Seroquel) 100 mg PO BEDTIME 08/30/24 08/30/24 Previous Rx's ?Medication ?Instructions ?Recorded Diabetic shoes with 3 inserts #1 ea 04/24/22 insulin lispro 100 unit/mL See Rx Instructions .Route 09/27/23 subcutaneous solution (Humalog .COMPLEX #5 mL U-100 Insulin) trazodone 300 mg tablet 300 mg PO BEDTIME #90 tabs 1 08/27/23 mupirocin 2 % topical ointment 1 applic topical TID 2 weeks #22 07/20/24 grams prazosin 2 mg capsule See Rx Instructions .Route 0 08/14/24 .COMPLEX #30 caps prazosin 5 mg capsule See Rx Instructions .Route 0 08/14/24 .COMPLEX #30 caps oseltamivir 75 mg capsule (Tamiflu) 75 mg PO BID 5 day s #10 caps 08/29/24 amoxicillin 875 mg-potassium 1 tab PO BID #14 tabs clavulanate 125 mg tablet azithromycin 250 mg tablet See Rx Instructions PO .COM PLEX #6 08/30/24 (Zithromax Z-Hesham) tabs prednisone 20 mg tablet 20 mg PO BID 3 days #6 tabs 08/30/24 Allergies Allergy/AdvReac Type Severity Reaction Status Date / Time promethazine (From Phenergan) Allergy Unknown HARD TO Verified 07/20/24 10:15 BREATH PFSH ED 2 PFSH: Medical History Chest pain Psychiatric care Generalized anxiety disorder Post-traumatic stress disorder, chronic Opioid contract exists Encounter for long-term use of opiate analgesic Lumbar back pain Surgical History History of colonoscopy History of elbow surgery History of lumbar fusion History of neck surgery 3x LAP-BAND surgery status Family History Other CAD (coronary artery disease) Cancer Diabetes Hypertension Psychiatric illness Social History Smoking and tobacco/nicotine status: never used tobacco/nicotine Alcohol intake: never Substance/Drug Use: never Course 2 Vital Signs: Vital signs: Vital Signs Temperature 98.2 F 08/30/24 14:28 Pulse Rate 88 08/30/24 19:02 Respiratory Rate 20 H 08/30/24 18:10 Blood Pressure 164/56 08/30/24 19:02 Pulse Oximetry 97 08/30/24 19:02 Oxygen Delivery Me thod Nasal Cannula 08/30/24 18:10 Oxygen Flow Rate 1.5 08/30/24 18:10 MDM - SOB/Dyspnea Medical Decision Making chart created in error Lab Data 08/30/24 15:15 08/30/24 15:15 Labs/Radiology: Radiology Impressions Chest X-Ray 08/30/24 14:52 IMPRESSION: Bronchitis. Laboratory Results WBC 14.37 10^3/uL (3.29-11.43) H 08/30/24 15:15 RBC 3.86 10^6/uL (3.85-5.65) 08/30/24 15:15 Hgb 11.40 g/dL (11.27-16.99) 08/30/24 15:15 Hct 34.8 % (37-53) L 08/30/24 15:15 MCV 90.2 fl (82-101) 08/30/24 15:15 MCH 29.5 pg (27-33) 08/30/24 15:15 MCHC 32.8 g/dL (30-55) 08/30/24 15:15 RDW 16.6 % (12.1-15.1) H 08/30/24 15:15 Plt Count 192 10^3/cmm (157-399) 08/30/24 15:15 MPV 10.5 fL (7.4-10.4) H 08/30/24 15:15 Neut % (Auto) 77.8 % 08/30/24 15:15 Lymph % (Auto) 14.2 % 08/30/24 15:15 [place] % (Auto) 5.6 % 08/30/24 15:15 Eos % (Auto) 0.6 % 08/30/24 15:15 Baso % (Auto) 0.3 % 08/30/24 15:15 Neut # (Auto) 11.18 10^3/uL (1.8-7.7) H 08/30/24 15:15 Lymph # (Auto) 2.0 10^3/uL (0.8-4.8) 08/30/24 15:15 [place] # (Auto) 0.8 10^3/uL (0.2-0.9) 08/30/24 15:15 Eos # (Auto) 0.1 10^3/uL (0.0-0.8) 08/30/24 15:15 Baso # (Auto) 0.1 10^3/uL (0.0-0.1) 08/30/24 15:15 Nucleated RBC % (auto) 0 % 08/30/24 15:15 Nucleated RBCs # 0.0 /100WBC 08/30/24 15:15 Sodium 142 mmol/L (136-145) 08/30/24 15:15 Potassium 3.7 mmol/L (3.5-5.1) 08/30/24 15:15 Chloride 105 mmol/L (98-107) 08/30/24 15:15 Carbon Dioxide 24 mmol/L (22-29) 08/30/24 15:15 Anion Gap 16.7 (5-19) 08/30/24 15:15 BUN 14 mg/dL (6-20) 08/30/24 15:15 Creatinine 1.1 mg/dL (0.7-1.2) 08/30/24 15:15 GFR Calculation 69.8 mL/min (90-130) L 08/30/24 15:15 Glucose 160 mg/dL (65-115) H 08/30/24 15:15 Calculated Osmolality 298 mOsm/kg (285-295) H 08/30/24 15:15 Calcium 8.2 mg/dL (8.5-10.5) L 08/30/24 15:15 Total Bilirubin 0.7 mg/dL (0.15-1.2) 08/30/24 15:15 AST 27 U/L (0-40) 08/30/24 15:15 ALT 21 U/L (0-41) 08/30/24 15:15 Alkaline Phosphatase 108 U/L (40-130) 08/30/24 15:15 NT-Pro-B Natriuret Pep 442 pg/mL (0-125) H 08/30/24 15:15 Total Protein 6.8 g/dL (6.6-8.7) 08/30/24 15:15 Albumin 3.4 g/dL (3.5-5.2) L 08/30/24 15:15 Globulin 3.4 g/dL (1.3-4.6) 08/30/24 15:15 Coronavirus (PCR) Negative (Negative) 08/30/24 15:50 Influenza A (PCR) Negative (Negative) 08/30/24 15:50 Influenza Type B (PCR) Negative (Negative) 08/30/24 15:50 RSV (PCR) Negative (Negative) 08/30/24 15:50 All radiology interpretation(s) finalized by discharge Discharge Plan Discharge Patient Disposition: Home Clinical Impression: COPD with acute exacerbation Acute bronchitis Qualifiers: Bronchitis organism: unspecified organism Qualified Code(s): J20.9 - Acute bronchitis, unspecified Condition: Stable Prescriptions: New amoxicillin-pot clavulanate 875-125 mg tablet 1 tab PO BID Qty: 14 0RF azithromycin [Zithromax Z-Hesham] 250 mg tablet See Rx Instructions .ROUTE .COMPLEX Qty: 6 0RF Rx Instructions: For 250 mg dose pack: take 500 mg today (day 1), then 250 mg for 4 days (days 2-5) prednisone 20 mg tablet 20 mg PO BID 3 Days Qty: 6 0RF No Action pregabalin [Lyrica] 200 mg capsule 200 mg PO Q12H montelukast 10 mg tablet 10 mg PO DAILY (DME) Diabetic shoes with 3 inserts See Rx Instructions .Route .MEDSUPPLY Qty: 1 0RF Rx Instructions: As directed by [facility] trazodone 300 mg tablet 300 mg PO BEDTIME Qty: 90 0RF potassium chloride 20 mEq tablet,ER particles/crystals 20 meq PO DAILY furosemide 40 mg tablet 80 mg PO BID mupirocin 2 % ointment 1 applic topical TID 14 Days Qty: 22 0RF prazosin 2 mg capsule See Rx Instructions .ROUTE .COMPLEX Qty: 30 3RF Dose Instruction: Take 1 capsule by mouth at bedtime Rx Instructions: Take 1 capsule by mouth at bedtime along with 5 mg to=7mg total prazosin 5 mg capsule See Rx Instructions .ROUTE .COMPLEX Qty: 30 3RF Dose Instruction: Take 1 capsule by mouth at bedtime Rx Instructions: Take 1 capsule by mouth at bedtime along with 2 mg to= 7mg total. Humulin 70/30 U-100 Insulin 100 unit/mL (70-30) suspension 80 unit SUBCUT BID Rx Instructions: per sliding scale ipratropium bromide 42 mcg (0.06 %) spray,non-aerosol 1 spray INTRANASAL DAILY fluticasone propionate 50 mcg/actuation spray,suspension 2 spray INTRANASAL DAILY lamotrigine 200 mg tablet 200 mg PO .DAILY@10AM citalopram 40 mg tablet 40 mg PO .@10PM metoprolol succinate 100 mg tablet extended release 24 hr 100 mg PO DAILY quetiapine [Seroquel] 100 mg tablet 100 mg PO BEDTIME cetirizine [Zyrtec] 10 mg Tablet 10 mg PO DAILY diphenhydramine HCl [Benadryl Allergy] 25 mg Tablet 25 mg PO BID PRN (Reason: Allergy Symptoms) albuterol sulfate 90 mcg/actuation HFA aerosol inhaler 2 puff inhalation .Q4-6H PRN (Reason: Shortness Of Breath) oxymetazoline [Nasal [place] (oxymetazoline)] 0.05 % [place],Non-Aerosol 2 spray INTRANASAL Q12H PRN (Reason: Nasal Congestion) atorvastatin 40 mg tablet 40 mg PO DAILY hydrocodone-acetaminophen 5-325 mg tablet 1 tab PO .Q4-6H PRN (Reason: Pain) pantoprazole 40 mg tablet,delayed release (DR/EC) 40 mg PO BID dapagliflozin propanediol [Farxiga] 10 mg tablet 10 mg PO DAILY insulin lispro [Humalog U-100 Insulin] 100 unit/mL Solution See Rx Instructions .ROUTE .COMPLEX Qty: 5 0RF Rx Instructions: Use per sliding scale. bs 141-180 4u,181-220 6u,221-260 8u,261-300 10u,301- 350 12u, 351-400 14u, >400 16u oseltamivir [Tamiflu] 75 mg capsule 75 mg PO BID 5 Days Qty: 10 0RF Discharge Orders: Discharge ED (Routine); Ordered 08/30/24 Ordered By: Gilbert Persaud Referrals: Agustina Whiting DO [Primary Care Provider] - Patient Instructions: Opioid Safety, Pain Management Print Language: Japanese Coding Level of Care Code ED Lead Cargo Mover for Carito Arreguin
--- NOTE | 2024-08-30 18:46 | PC.NURSE ---
THIS NURSE WENT IN TO ROOM TO DISCHARGE PT. PT GOT OUT OF BED TO GET IN TO WHEELCHAIR AND HAD INCREASED OF SHORTNESS OF BREATH. THIS NURSE INSTRUCTED PT TO TAKE HIS TIME AND TO TRY AND CONTROL HIS BREATHING. PT AMBULATED FROM THE BED TO WHEELCHAIR AND WAS STILL SHORT OF BREATH. THIS NURSE NOTIFIED PROVIDER. DR. ASHFORD REEVALUATED PT AND DID AN AMBULATION TRIAL. AFTER EVALUATION FROM PROVIDER, PT WAS STILL DEEMED SAFE TO BE DISCHARGED. VERBAL ORDERS TO GIVE PT A URINAL FOR HOME.
--- NOTE | 2024-08-30 19:00 | PC.NURSE ---
THIS NURSE TOOK PT OUT TO VEHICLE AND HELPED HIM INTO CAR. PT STARTED [address] AN INCREASE OF SHORTNESS OF BREATH. PT WAS VERBALLY CALMED DOWN BY THIS NURSE IN THE PARKING LOT. PT BREATHING SLOWED DOWN. PT WAS EDUCATED AGAIN ON DISCHARGE INSTRUCTIONS AND IF HE WAS TO GET WORSE, HE COULD COME BACK AND BE SEEN. PT VERBALIZED UNDERSTANDING.
== END 2024-08-30 19:04 | disposition home or self-care (01) ==
PROVIDERS: Emergency Provider Emergency Medicine; PCP Family Medicine
DX: J44.1 Chronic obstructive pulmonary disease with (acute) exacerbation (principal); J20.9 Acute bronchitis, unspecified; Z11.52 Encounter for screening for COVID-19; Z79.4 Long term (current) use of insulin
CPT/HCPCS: 12345; 36415; 71045; 80053; 83880; 85025; 87040; 87637; 93005; 94640; 96374; 96375; 99285; J0696; J2919; J7613

== ENCOUNTER → 2024-12-08 09:35 | Outpatient (BNVA) | payer MEDICARE, OTHER, SELFPAY | PROVIDERS: PCP Family Medicine; Visit Provider Podiatrist Foot & Ankle Surgery | DX: E11.42 Type 2 diabetes mellitus with diabetic polyneuropathy (principal); L84 Corns and callosities; L60.3 Nail dystrophy; E11.621 Type 2 diabetes mellitus with foot ulcer; L97.521 Non-pressure chronic ulcer of other part of left foot limited to breakdown of skin; Z79.4 Long term (current) use of insulin | CPT/HCPCS: 11056; 11721 ==

== ENCOUNTER → 2025-03-23 12:27 | Outpatient (BNVA) | payer MEDICARE, OTHER, SELFPAY | PROVIDERS: PCP Family Medicine; Visit Provider Podiatrist Foot & Ankle Surgery | DX: E11.42 Type 2 diabetes mellitus with diabetic polyneuropathy (principal); L60.3 Nail dystrophy; L84 Corns and callosities; E11.8 Type 2 diabetes mellitus with unspecified complications; Z79.4 Long term (current) use of insulin | CPT/HCPCS: 11056; 11721 ==

== ENCOUNTER 2025-05-08 21:54 | Observation (INO) | payer MEDICARE, OTHER, SELFPAY ==
[2025-05-08 21:56] VITALS: BP 93/40; PULSE 65; RESP 20; TEMP 36.7; O2SAT 94; BMI 47.7
--- OUTSIDE RECORDS SUMMARY | 2025-05-08 22:00 | XMS_ITS | Patient Health Record ---
Author Organization [facility] Address [address] [place] [address] Care Team Providers [employer] Psychometrist Name Role Phone Agustina Whiting DO Primary Care Provider Estela PlasenciaNatalie Unavailable [phone] Geena Thomson Unavailable [phone] Allergies Allergen (clinical drug ingredient) Drug/Non Drug Allergy documented on EMR Reaction Allergy Type Onset Date Status promethazine Promethazine anaphylaxis Drug Allergy Active Results Component Value Reference Range Flag Notes Urine Confirmation Panel (in strument) - [id number] Reviewed date:02/26/2025 10:00:32 AM Interpretation: Performing Lab: Notes/Report: 6-Acetylmorphine 0 <6 ng/mL N This yaneth t was developed and its performance characteristics determined by [facility]. It has not been cleared or approved by the U.S. Food and Drug Administration. 7-Aminoclonazepam 0 <60 ng/mL N This te st was developed and its performance characteristics determined by [facility]. It has not been cleared or approved by the U.S. Food and Drug Administration. Alprazolam 0 <60 ng/mL N This test was developed and its performance characteristics determined by [facility]. It has not been cleared or approved by the U.S. Food and Drug Administration. Amphetamine 0 <75 ng/mL N This test was developed and its performance characteristics determined by [facility]. It has not been cleared or approved by the U.S. Food and Drug Administration. aOH-Alprazolam 0 <60 ng/mL N This test was developed and its performance characteristics determined by [facility]. It has not been cleared or approved by the U.S. Food and Drug Administration. Buprenorphine 6.2 <7.5 ng/mL N This test w as developed and its performance characteristics determined by [facility]. It has not been cleared or approved by the U.S. Food and Drug Administration. Norbuprenorphine 0.0 <37.5 ng/mL N This te st was developed and its performance characteristics determined by [facility]. It has not been cleared or approved by the U.S. Food and Drug Administration. Carisoprodol 0 <75 ng/mL N This test wa s developed and its performance characteristics determined by [facility]. It has not been cleared or approved by the U.S. Food and Drug Administration. Codeine 0 <75 ng/mL N This test was developed and its performance characteristics determined by [facility]. It has not been cleared or approved by the U.S. Food and Drug Administration. EDDP 0 <75 ng/mL N This test was developed and its performance characteristics determined by [facility]. It has not been cleared or approved by the U.S. Food and Drug Administration. Fentanyl 0 <6 ng/mL N This test was developed and its performance characteristics determined by [facility]. It has not been cleared or approved by the U.S. Food and Drug Administration. Hydrocodone 517 <75 ng/mL H This test was developed and its performance characteristics determined by [facility]. It has not been cleared or approved by the U.S. Food and Drug Administration. Hydromorphone 7 <75 ng/mL N This test w as developed and its performance characteristics determined by [facility]. It has not been cleared or approved by the U.S. Food and Drug Administration. Lorazepam 0 <60 ng/mL N This test was developed and its performance characteristics determined by [facility]. It has not been cleared or approved by the U.S. Food and Drug Administration. MDMA 0 <75 ng/mL N This test was developed and its performance characteristics determined by [facility]. It has not been cleared or approved by the U.S. Food and Drug Administration. Meperidine 0.0 <37.5 ng/mL N This test was developed and its performance characteristics determined by [facility]. It has not been cleared or approved by the U.S. Food and Drug Administration. Meprobamate 0 <75 ng/mL N This test was developed and its performance characteristics determined by [facility]. It has not been cleared or approved by the U.S. Food and Drug Administration. Methamphetamine 0 <75 ng/mL N This test was developed and its performance characteristics determined by [facility]. It has not been cleared or approved by the U.S. Food and Drug Administration. Methadone 2 <75 ng/mL N This test was developed and its performance characteristics determined by [facility]. It has not been cleared or approved by the U.S. Food and Drug Administration. Morphine 0 <75 ng/mL N This test was developed and its performance characteristics determined by [facility]. It has not been cleared or approved by the U.S. Food and Drug Administration. Nordiazepam 0 <60 ng/mL N This test was developed and its performance characteristics determined by [facility]. It has not been cleared or approved by the U.S. Food and Drug Administration. Norfentanyl 0 <6 ng/mL N This test was developed and its performance characteristics determined by [facility]. It has not been cleared or approved by the U.S. Food and Drug Administration. Normeperidine 0.0 <37.5 ng/mL N This test was developed and its performance characteristics determined by [facility]. It has not been cleared or approved by the U.S. Food and Drug Administration. O-desmethyltramadol 0 <75 ng/mL N This test was developed and its performance characteristics determined by [facility]. It has not been cleared or approved by the U.S. Food and Drug Administration. Oxazepam 0 <60 ng/mL N This test was developed and its performance characteristics determined by [facility]. It has not been cleared or approved by the U.S. Food and Drug Administration. Oxycodone 0.0 <37.5 ng/mL N This test was developed and its performance characteristics determined by [facility]. It has not been cleared or approved by the U.S. Food and Drug Administration. Oxymorphone 0 <75 ng/mL N This test was developed and its performance characteristics determined by [facility]. It has not been cleared or approved by the U.S. Food and Drug Administration. Phencyclidine 0.0 <7.5 ng/mL N This test w as developed and its performance characteristics determined by [facility]. It has not been cleared or approved by the U.S. Food and Drug Administration. Tapentadol 0.0 <37.5 ng/mL N This test was developed and its performance characteristics determined by [facility]. It has not been cleared or approved by the U.S. Food and Drug Administration. Temazepam 0 <60 ng/mL N This test was developed and its performance characteristics determined by [facility]. It has not been cleared or approved by the U.S. Food and Drug Administration. Tramadol 0 <75 ng/mL N This test was developed and its performance characteristics determined by [facility]. It has not been cleared or approved by the U.S. Food and Drug Administration. Norhydrocodone 379 <75 ng/mL H This test was developed and its performance characteristics determined by [facility]. It has not been cleared or approved by the U.S. Food and Drug Administration. Noroxycodone 0 <38 ng/mL N This test wa s developed and its performance characteristics determined by [facility]. It has not been cleared or approved by the U.S. Food and Drug Administration. Pregabalin >84376 <225 ng/mL > This test was developed and its performance characteristics determined by [facility]. It has not been cleared or approved by the U.S. Food and Drug Administration. Gabapentin 0 <225 ng/mL N This test was developed and its performance characteristics determined by [facility]. It has not been cleared or approved by the U.S. Food and Drug Administration. Benzoylecgonine 0.0 <37.5 ng/mL N This yaneth t was developed and its performance characteristics determined by [facility]. It has not been cleared or approved by the U.S. Food and Drug Administration. 4-Hydroxy Xylazine 0 <25 ng/mL N This t est was developed and its performance characteristics determined by [facility]. It has not been cleared or approved by the U.S. Food and Drug Administration. Urine Drug Screen (cup read) - [id number] Reviewed date:02/09/2025 11:16:36 AM Interpretation: Performing Lab: Notes/Report: OPI + Tox Results Reviewed date:02/26/2025 02:50:21 PM Interpretation: Performing Lab: Notes/Report: Urine Drug Screen (cup read) - [id number] Reviewed date:04/08/2025 09:43:58 AM Interpretation: Performing Lab: Notes/Report: OPI + Reason For Referral Reason eval and treat Diagnosis 1 Chronic pain syndrom e (G89.4) Referring Provider First Name Agustina Referring Provider Last Name Johanne Referring Provider Speciality Family Med icine Referred Organization [facility] Referred Provider Waldo Frye Referred Address [address] [facility] [facility],[address] Referred Provider Specialty [facility] General Notes Sonja Katz 02:58:21 PM >atc pt, no answer, Sonja Katz 11/30/2024 03:03:17 PM >mailed npp, pt is scheduled Referral Priority Routine Medications Medication SIG (Take, Route, Frequency, Duration) Notes Start Date End Date Status tiZANidine HCl 4 MG Tablet 1 tablet as needed Orally every 8 hours; Duration: 30 days Fill 30 days from previous Rx 04/08/2025 Active Lyrica 200 MG Capsule 1 capsule Orally twice a day; Duration: 30 days Fill 30 days from previous Rx 04/08/2025 06/07/2025 Active HYDROcodone-Acetamin ophen 5-325 MG Tablet 1 tablet Orally every 6 hrs; Duration: 30 days As needed not to exceed 2.5 tabs per day Fill on 05/22/2025 04/08/2025 06/21/2025 Active HYDROcodone-Acetamin ophen 5-325 MG Tablet 1 tablet Orally every 6 hrs; Duration: 30 days As needed not to exceed 2.5 tabs per day Fill on 04/22/2025 04/08/2025 05/22/2025 Active tiZANidine HCl 4 MG Tablet 1 tablet Orally every 6-8 hours; Duration: 30 days As needed Not to exceed 3 per day 03/09/2025 Active Social History Tobacco Use: Social History Observation Description Date Details (start date - stop date) Never Smoker NA - NA Social History Tobacco Use: Social Info Question Answer Notes Tobacco Control (Standard) Tobacco use: Nonsmoker Additional Details Category Social Info Options Details Miscellaneous: Sexually active: no Sexual abuse: no Drugs/Alcohol: Do you smoke marijuana? De nies Do you drink alcohol? No Problems Problem Type SNOMED Code ICD Code Onset Dates Problem Status W/U Status Risk Notes Problem Chronic pain syndrome (345344239) Chronic pain syndrome (G89.4) Active confirmed Problem Myalgia of auxiliary muscles, head and neck (M79.12) Active confirmed Problem Cervical radiculopathy (69457401) Cervical radiculopathy (M54.12) Active confirmed Problem Neuropathy (867200700) Neuropathy (G62.9) Active confirmed Problem Lumbosacral spondylosis without myelopathy (27485724) Spondylosis of lumbosacral region without myelopathy or radiculopathy (M47.817) Active confirmed Problem Cervical spondylosis (091363255) Cervical spondylosis (M47.812) Active confirmed Problem Myalgia (85552238) Myalgia (M79.10) Active confirmed Problem Tobacco dependence (83589914) Tobacco dependence (F17.200) Active confirmed Problem Lumbosacral spondylosis without myelopathy (86636081) Lumbosacral radiculopathy due to degenerative joint disease of spine (M47.27) Active confirmed Problem Lumbosacral radiculopathy (9455855) Lumbosacral radiculopathy (M54.17) Active confirmed Problem Lumbar post-laminectomy syndrome (172422325) Lumbar post-laminectomy syndrome (M96.1) Active confirmed Vital Signs Weight-kg 107.05 kg 04/08/2025 Weight 236 lbs 04/08/2025 Encounters Encounter Location Date Provider Diagnosis [facility] [address] [place] [id number] 02/09/2025 Geena Barnett e Chronic pain syndrome G89.4 ; Lumbosacral radiculopathy due to degenerative joint disease of spine M47.27 ; Myalgia M79.10 ; Cervical spondylosis M47.812 ; Myalgia of auxiliary muscles, head and neck M79.12 ; Lumbar post-laminectomy syndrome M96.1 ; Neuropathy G62.9 ; 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 ; Tobacco dependence F17.200 ; Spondylosis of lumbosacral region without myelopathy or radiculopathy M47.817 and Lumbosacral radiculopathy M54.17 [facility] [address] [place] [address] 03/09/2025 Geena Barnett e Chronic pain syndrome G89.4 ; Lumbosacral radiculopathy due to degenerative joint disease of spine M47.27 ; Myalgia M79.10 ; Cervical spondylosis M47.812 ; Myalgia of auxiliary muscles, head and neck M79.12 ; Lumbar post-laminectomy syndrome M96.1 ; Neuropathy G62.9 ; MCC (current) use of opiate analgesic Z79.891 ; Tobacco dependence F17.200 ; Spondylosis of lumbosacral region without myelopathy or radiculopathy M47.817 and Lumbosacral radiculopathy M54.17 [facility] [address] [place] [address] 04/08/2025 Natalie Plasencia Chronic pain syndrome G89.4 ; Lumbosacral radiculopathy due to degenerative joint disease of spine M47.27 ; Myalgia M79.10 ; Cervical spondylosis M47.812 ; Myalgia of auxiliary muscles, head and neck M79.12 ; Lumbar post-laminectomy syndrome M96.1 ; Neuropathy G62.9 ; MCC (current) use of opiate analgesic Z79.891 and Tobacco dependence F17.200 [facility] [address] [place] [address] 02/18/2025 Geena Barnett e Chronic pain syndrome G89.4 [facility] [address] [place] [address] 04/08/2025 Geena Barnett e Lumbosacral radiculopathy M54.17 ; Myalgia M79.10 and Neuropathy G62.9 Assessments Encounter Date Diagnosis (ICD Code) Assessment Notes Treatment Notes Treatment Clinical Notes Section Notes 02/18/2025 Chronic pain syndrome (ICD-10 - G89.4) 04/08/2025 Chronic pain syndrome (ICD-10 - G89.4) I had a nice discussion with the patient today regarding his chronic pain complaints. He continues with neck, lower back as well as myalgia mediated pain. He feels his medication is working reasonably well and allows him to function better overall. He states he cannot remember if he got his imaging or not that was ordered at his last visit. We will try to check on this and see if he got it done and he is going to call as well. He does state that his arthritis pain has been a little worse this past week with the rain that we have had but he is overall getting by pretty well. He denies any changes in his health since we last seen him or any untoward side effects of the medication. I did discuss lifestyle modifications as well as a bowel regimen. He will continue his medication at present level and return to clinic in 2 months to monitor for treatment effectiveness and compliance. The patient continues with chronic pain requiring treatment to help restore function and improve quality of life. Risks of opioid therapy as well as interaction of opioids with alcohol, illicit drugs, muscle relaxers, and other sedative medications are reviewed briefly with patient again today. The patient has trialed all other reasonable treatment options and uses the medication to alleviate pain in order to remain active and rest with less pain. No clinically relevant medication side effects are noted. Last UDS and [place] BILINGUAL LEGAL ASSISTANT reviewed today. Patient is advised that best long-term goals include increased activity, core strengthening, proper weight management, coping strategies, avoidance of painful triggers, and targeted interventional therapy. We will see the patient for routine follow up in accordance with all clinic policies. We did remind patient today of current guidelines to decrease opioid when possible. We will continue to stress nonopioid treatment. URINE TESTING TODAY; POINT OF SERVICE Urine drug screening will be performed today to monitor compliance with opioid therapy or to serve as a baseline screen for a patient who may be a candidate for opioid therapy in the future, pending UDS results. We will monitor with in-office testing (rapid testing) today and review the results prior to dispensing prescription, as well. Patient has been made aware of this policy. 04/08/2025 Lumbosacral radiculopathy due to degenerative joint disease of spine (ICD-10 - M47.27) 04/08/2025 Lumbosacral radiculopathy (ICD-10 - M54.17) 03/09/2025 Chronic pain syndrome (ICD-10 - G89.4) Mr. Lucas is a very pleasant gentleman with cervical post laminectomy and lumbar post laminectomy syndrome. We ordered C Spine X-Rays,however, we were unable to obtain those records. We will try getting those again.We reviewed his L Spine records with him. 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 It looks like it was sent on our end to [facility]. They did not call us. We will continue his Vance at 75 tablets, Lyrica at 200 mg BID, and his tizanidine 4 mg, quantity 90. We will also obtain a C Spine X-Ray. PDMP reviewed with no untoward events. Last UDS confirmation was consistent with prescribed medication at that time. The options for treatment were explained in detail, this included PT, medications, injections, lifestyle modifications and exercise. The patient presents to clinic for medication evaluation and management. The patient is stable on their current medication regimen and endorses adequate analgesia, increased ADLs, denies abuse and side effects. The BILINGUAL LEGAL ASSISTANT was reviewed with no untoward events noted. UDS reviewed and is as expected. A bowel regimen was discussed with the patient. 02/09/2025 Chronic pain syndrome (ICD-10 - G89.4) Mr. Lucas is a very pleasant gentleman with cervical postlaminectomy and lumbar post laminectomy syndrome. I suspect that his weight is also contributing as well as his COPD and heart failure. At this time, he is breathless when getting up from a seated position, and I am concerned that a physical therapy program would not be as beneficial for him given his cardiovascular and pulmonary status. I do need to obtain X-rays of his neck and lower back as I do not have any recent imaging to see if there are any interventional procedures I can offer him to get him some semblance of his life back. He's inquiring if he could have an additional tablet every once in a while that would allow him to move around and to complete his activities of daily living. I will give him an additional 15 tablets for a total of #75 of the Hydrocodone 5/325 mg. PDMP reviewed with no untoward events. We will obtain a UDS confirmation today as he is establishing care. We will also continue his Lyrica as well as Tizanidine. He denies any lightheadedness with the Tizanidine. Follow up in 2 months with him. 02/09/2025 Lumbosacral radiculopathy due to degenerative joint disease of spine (ICD-10 - M47.27) 02/09/2025 Myalgia (ICD-10 - M79.10) 03/09/2025 Lumbosacral radiculopathy due to degenerative joint disease of spine (ICD-10 - M47.27) 04/08/2025 Myalgia (ICD-10 - M79.10) 04/08/2025 Myalgia (ICD-10 - M79.10) 04/08/2025 Cervical spondylosis (ICD-10 - M47.812) 04/08/2025 Neuropathy (ICD-10 - G62.9) 03/09/2025 Myalgia (ICD-10 - M79.10) 02/09/2025 Cervical spondylosis (ICD-10 - M47.812) 02/09/2025 Myalgia of auxiliary muscles, head and neck (ICD-10 - M79.12) 03/09/2025 Cervical spondylosis (ICD-10 - M47.812) 04/08/2025 Myalgia of auxiliary muscles, head and neck (ICD-10 - M79.12) 04/08/2025 Lumbar post-laminectomy syndrome (ICD-10 - M96.1) 03/09/2025 Myalgia of auxiliary muscles, head and neck (ICD-10 - M79.12) 02/09/2025 Lumbar post-laminectomy syndrome (ICD-10 - M96.1) 03/09/2025 Lumbar post-laminectomy syndrome (ICD-10 - M96.1) 02/09/2025 Neuropathy (ICD-10 - G62.9) 04/08/2025 Neuropathy (ICD-10 - G62.9) 04/08/2025 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 They will make attempts to cut back. 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 Oh. I, Dr. Oh, personally performed the services described in this documentation, as scribed by Mamta Brown, and it is both accurate and complete. RECOMMEND URINE TESTING TODAY Urine drug screening will be performed today to monitor compliance with opioid therapy or to serve as a baseline screen for a patient who may be a candidate for opioid therapy in the future, pending UDS results. We will monitor with in-office testing (rapid testing) today and review the results prior to dispensing prescription. All positive results will be sent for quantitative analysis to ensure accuracy and quantify amounts. Any expected positive results that return negative will also be sent for quantitative analysis. Any questionable read or any medication we cannot test for in the office confidently will be sent for quantitative analysis, as well. Patient has been made aware of this policy and agrees to abide by our urine testing policy. 03/09/2025 Other Walt, Lyric Fairchild am scribing for Dr. Geena Thomson. Geena Godoy, personally performed the services described in this documentation, as scribed by Lyric Fairchild, and it is both accurate and complete. Plan Of Treatment Pending Test Test Name Order Date Cervical Spine w/ Obl/Flex/Ext Comp-7205 2 02/09/2025 Lumbosacral Spine Comp w/ Bending-[id number] 02/09/2025 Next Appt Details Provider Name:Geena Catalan, 06/01/2025 01:40:00 PM, [address] [place], [address], Insurance Providers Payer Name Payer Address Payer Phone Subscriber Number Group Number Insured Name Patient Relationship to Insured Coverage Start Date Coverage End Date RR Medicare [address] [address] [place] [phone] [id number] Sergei Lucas Self - patient is the insured [facility] [employer] [address] [address] [place] [phone] [id number] Sergei Lucas Self - patient is the insured Medical (General) History Medical History History ICD Code High Blood Pressure Diabetes Hypoglycemia Heart Disease Asthma Stomach Ulcer migraine headaches Depression Arthritis constipation Prostate Problems kidney infection Swelling of multiple joints Kidney disease COPD Heart failure Heart attack Surgical History Surgery Date(Month/Year) lap band back surgery neck surgery x2
--- OUTSIDE RECORDS SUMMARY | 2025-05-08 22:01 | XMS_ITS | Encounter Summary ---
Author Organization [facility] Address [address] [place] [address] Care Team Providers Care Pediatrician Active Practice Name Role Phone Agustina Whiting DO Primary Care Provider +1- [phone] Reason for Referral * Radiology Services (Routine) - Closed Specialty Diagnoses / Procedures Referred By Contac t Referred To Contact Radiology Diagnoses Bilateral inguinal hernia without obstruction or gangrene, recurrence not specified Procedures US EXT NON VASC LTD BI US PELVIS LIMITED NON OB US PELVIS COMPLETE Selin Salgado FNP Phone: tel: fax: [facility] Ultrasound [place] [address] [place] [address] Phone: tel: fax: Referral ID Status Reason Start Date Expiration Date V isits Requested Visits Authorized [id number] Closed SCN View CTS to Schedule 10/26/2020 11/26/2021 1 1 Encounter Details Date Type Department Care Team (Late st Contact Info) Description 12/08/2020 Ancillary Orders [facility] Medicine [place] [address] [place] [phone] Selin Salgado FNP [address] [place] [address] Bilateral inguinal hernia without obstruction or gangrene, recurrence not specified Social History Tobacco Use Types Packs/Day Years Used Date Smoking Tobacco: Passive Smo ke Exposure - Never Smoker Smokeless Tobacco: Never Alcohol Use Standard Drinks/Week Comments Not Currently 0 (1 standard drink = 0.6 oz pur e alcohol) Sex and Gender Information Value Date Recorded Sex Assigned at Not on file 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 No / Unsure 12/08/2020 2:45 PM CDT documented as of this encounter Plan of Treatment Not on file documented as of this encounter Results * US EXT NON VASC LTD BI (12/08/2020 4:04 PM CDT) Anatomical Region Laterality Modality Bilateral Ultrasound 12/08/2020 4:04 PM CDT Impressions 12/09/2020 11:18 AM CDT IMPRESSION: Please see below. Exam: US EXT NON VASC LTD BI Date/Time of Exam: 12/08/2020 4:04 PM Reason For Exam: See Diagnosis. Diagnosis: Bilateral inguinal hernia without obstruction or gangrene, recurrence not specified. Findings: Imaging and the inguinal regions bilaterally demonstrate no evidence of hernia, mass or abnormal fluid collection. IMPRESSION: Negative study. Narrative Procedure Note Emma Talley MD - 12/09/2020 IMPRESSION: Please see below. Exam: US EXT NON VASC LTD BI Date/Time of Exam: 12/08/2020 4:04 PM Reason For Exam: See Diagnosis. Diagnosis: Bilateral inguinal hernia without obstruction or gangrene, recurrence not specified. Findings: Imaging and the inguinal regions bilaterally demonstrate no evidence of hernia, mass or abnormal fluid collection. IMPRESSION: Negative study. us Selin RAMESHP US ORDERABLES Final Re sult documented in this encounter Visit Diagnoses Diagnosis Pelvic floor hernia Uterine prolapse without mention of vaginal wall prolapse Bilateral inguinal hernia without obstruction or gangrene, recurrence not specified Bilateral inguinal hernia without obstruction or gangrene, recurrence not specified documented in this encounter Care Teams Pediatrician Active Practice Relationship Specialty Start Date End Date Johanne, Agustina L, DO [address] [place] [phone] PCP - General Family Practice 06/09/19 documented as of this encounter
--- OUTSIDE RECORDS SUMMARY | 2025-05-08 22:01 | XMS_ITS | Encounter Summary ---
Author Organization [facility] Address [address] [place] [address] Care Team Providers Care Circulation Analyst Name Role Phone Agustina Whiting DO Primary Care Provider [phone]- [phone] Reason for Visit * Reason Comments Provider Call Encounter Details Date Type Department Care Team (Late st Contact Info) Description 12/01/2024 Telephone [facility] Medicine [place] [address] [place] [address] Agustina Whiting DO [address] [place] [address] Provider Call Social History Tobacco Use Types Packs/Day Years Used Date Smoking Tobacco: Never Passive Smoke Exposure: Never Smokeless Tobacco: Never Alcohol Use Standard Drinks/Week Comments Not Currently 0 (1 standard drink = 0.6 oz pur e alcohol) Financial Resource Strain Answer Date R ecorded How hard is it for you to pa y for the very basics like food, housing, medical care, and heating? Somewhat hard 04/27/2022 Food Insecurity Answer Date Recorded In the past 12 months, have you worried that your food would run out before you had money to buy more? Never true 04/27/2022 In the past 12 months, did y ou run out of food and didn't have money to buy more? Never true 04/27/2022 Transportation Needs Answer Date Record ed In the past 12 months, has l ack of transportation kept you from medical appointments or from getting medications? No 04/27/2022 Lack of Transportation (Non-Medical) Not on file 04/27/2022 Feeling Safe Answer Date Recorded Are you in a relationship wi th someone who hurts you emotionally and/or physically? 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 Pt said he the nurse called him today and he told her about the weight gain and the nurse spoke with the fiberglass tube molder and calledhim back. Pt said his fiberglass tube molder is with [facility] [place] [facility] in [place]. Pt says he is going to go with the changes that his [place] provider made. Pt will let clinic know tomorrow what changes this provider made when he stops by the clinic to sign ROSHAN paper. Cathy FLORES * Telephone Encounter - Geena Beal - 12/01/2024 2:50 PM CDT Copied from [facility] #[id number]. Topic: [id number] Call >> December 01, 2024 2:47 PM Geena Cunningham wrote: Caller is requesting to speak with Clinical Care Team. Caller Name: [facility] Callback Number: [phone] Clinician Type: Home Health Co-worker Call Notes: Patient is up 5lbs (325 lbs) within last two days, increased shortness of breath with ambulation and had edema to abdomen and lower extremities. Is this addressing an immediate patient care need? No documented in this encounter Plan of Treatment Upcoming Encounters Date Type Department Care Team (Late st Contact Info) Description 06/16/2025 4:00 PM COMPUTER SALESPERSON RETAIL Office Visit [facility] Medicine [place] [address] [place] [address] Agustina Whiting DO [address] [place] [phone] 06/23/2025 1:10 PM COMPUTER SALESPERSON RETAIL Office Visit [facility] Ophthalmology [place] [address] [place] [address] [place] [phone] Latonia Clark MD [address] [place] [address] documented as of this encounter Visit Diagnoses Not on filedocumented in this encounter Additional Health Concerns Assessment Noted Time PHQ-9 Depression Total Score: 2 08/26/19 25 11:06 AM COMPUTER SALESPERSON RETAIL documented as of this encounter Care Teams Circulation Analyst Relationship Specialty Start Date End Date Agustina Whiting DO [address] [place] [phone] PCP - General Family Practice 06/09/19 documented as of this encounter
--- OUTSIDE RECORDS SUMMARY | 2025-05-08 22:01 | XMS_ITS | Clinical Summary ---
Author Organization 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
--- OUTSIDE RECORDS SUMMARY | 2025-05-08 22:01 | XMS_ITS | Encounter Summary ---
Author Organization [facility] Address [address] [place] [address] Care Team Providers Care Outcomes Specialist Name Role Phone Agustina Whiting DO Primary Care Provider [phone]- [phone] Encounter Details Date Type Department Care Team (Latest Contact Info) Description 05/08/2002 Outpatient Historical [facility] Ortiz Hardwick MD [address] [place] [address] AFTERCARE HALFWAY USE MEDICATN (Primary Dx) Social History Tobacco Use Types Packs/Day Years Used Date Smoking Tobacco: Never Assessed Sex and Gender Information Value Date Recorded Sex Assigned at Not on file 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 Gender Identity Not on file Sexual Orientation Not on file documented as of this encounter Plan of Treatment Not on file documented as of this encounter Visit Diagnoses Diagnosis Encounter for long-term (current) use of other medications- Primary documented in this encounter Additional Health Concerns Infection Onset Date Last Indicated Resolved Time R/O COVID-19 04/15/2020 04/15/2020 04/17/2020 5:45 AM CDT R/O COVID-19 04/22/2020 04/22/2020 04/24/2020 12:4 6 AM CDT documented as of this encounter Care Teams Outcomes Specialist Relationship Specialty Start Date End Date Agustina Whiting DO [address] [place] [address] PCP - General Family Practice 06/09/19 documented as of this encounter
--- OUTSIDE RECORDS SUMMARY | 2025-05-08 22:01 | XMS_ITS | Encounter Summary ---
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 Gender Identity Not on file Sexual Orientation Not on file documented as of this encounter Plan of Treatment Not on file documented as of this encounter Visit Diagnoses Diagnosis Bronchitis, not specified as acute or chronic- Primary documented in this encounter Additional Health Concerns Infection Onset Date Last Indicated Resolved Time R/O COVID-19 04/15/2020 04/15/2020 04/17/2020 5:45 AM CDT R/O COVID-19 04/22/2020 04/22/2020 04/24/2020 12:4 6 AM CDT documented as of this encounter Care Teams Refiner Operator Relationship Specialty Start Date End Date Agustina Whiting DO [address] [place] [address] PCP - General Family Practice 06/09/19 documented as of this encounter
--- OUTSIDE RECORDS SUMMARY | 2025-05-08 22:01 | XMS_ITS | Encounter Summary ---
Author Organization [facility] Address [address] [place] [address] Care Team Providers Care Soubrette Name Role Phone Agustina Whiting DO Primary Care Provider +1- [phone] Encounter Details Date Type Department Care Team (Latest Contact Info) Description 05/07/2002 Outpatient Historical [facility] Ortiz Hardwick MD [address] [place] [address] Routine medical exam (Primary Dx); Pain in limb; RESPIRATORY ABNORM NEC Social History Tobacco Use Types Packs/Day Years Used Date Smoking Tobacco: Never Assessed Sex and Gender Information Value Date Recorded Sex Assigned at Not on file 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 Gender Identity Not on file Sexual Orientation Not on file documented as of this encounter Plan of Treatment Not on file documented as of this encounter Visit Diagnoses Diagnosis Routine medical exam- Primary Routine general medical examination at a health care facility Pain in limb Pain in soft tissues of limb Other dyspnea and respiratory abnormality documented in this encounter Additional Health Concerns Infection Onset Date Last Indicated Resolved Time R/O COVID-19 04/15/2020 04/15/2020 04/17/2020 5:45 AM CDT R/O COVID-19 04/22/2020 04/22/2020 04/24/2020 12:4 6 AM CDT documented as of this encounter Care Teams Soubrette Relationship Specialty Start Date End Date Agustina Whiting DO [address] [place] [phone] PCP - General Family Practice 06/09/19 documented as of this encounter
--- OUTSIDE RECORDS SUMMARY | 2025-05-08 22:01 | XMS_ITS | Encounter Summary ---
Author Organization 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
--- OUTSIDE RECORDS SUMMARY | 2025-05-08 22:01 | XMS_ITS | Encounter Summary ---
Author Organization [facility] Address [address] [place] [address] Care Team Providers Care Agricultural Engineering Technologist Name Role Phone Agustina Whiting Primary Care Provider +1- [phone] Encounter Details Date Type Department Care Team (Late st Contact Info) Description 03/09/2025 Results Follow-Up [facility] Family Medicine [place] [address] [place] [address] October, PNEUMATIC JACKETER [address] [place] [address] XR KNEE 3 VW LEFT, POC URINALYSIS DIPSTICK AUTOMATED, URINE CULTURE Social History Tobacco Use Types Packs/Day Years [...] AM CDT Legal Sex Male 8:20 AM SOLE SEWER HAND Gender Identity Male 04/09/2024 9:07 AM CDT Sexual Orientation Straight 04/09/2024 9: 07 AM CDT documented as of this encounter Plan of Treatment Upcoming Encounters Date Type Department Care Team (Late st Contact Info) Description 06/16/2025 4:00 PM SOLE SEWER HAND Office Visit [facility] Medicine [place] [address] [place] [phone] Agustina Whiting DO [address] [place] [address] 06/23/2025 1:10 PM SOLE SEWER HAND Office Visit [facility] Ophthalmology [place] [address] [address] [place] [phone] Latonia Clark MD [address] [place] [phone] documented as of this encounter Visit Diagnoses Not on filedocumented in this encounter Additional Health Concerns Assessment Noted Time PHQ-9 Depression Total Score: 2 08/26/19 25 11:06 AM SOLE SEWER HAND documented as of this encounter Care Teams Agricultural Engineering Technologist Relationship Specialty Start Date End Date Agustina Whiting DO [address] [place] [address] PCP - General Family Practice 06/09/19 documented as of this encounter
--- OUTSIDE RECORDS SUMMARY | 2025-05-08 22:01 | XMS_ITS | Clinical Summary ---
Author Organization [facility] Address [address] [place] [address] Phone Care Team Providers Care Biomedical Analytical Scientist Name Role Phone Agustina Whiting DO Primary Care Provider [phone] Allergies Active Allergy Reactions Criticality Noted Date Comments Alpha-Gal (Ortxlkrbk-Wjzcf-8,3-Galacto se) Unknown 07/04/2020 Has chronic joint pain and sinus issues. Hydromorphone (Bulk) Anaphylaxis High 03/21/2019 Phenergan Plain Anaphylaxis High 03/21/2019 Medications naproxen (NAPROSYN) 500 mg tablet Take 500 mg by mouth 2 times daily. 0 01/29/20 19 Active loratadine (CLARITIN) 10 mg tablet Take 10 mg by mouth daily. Active folic acid (FOLVITE) 1 mg tablet Take 1 mg by mouth daily. Active citalopram (CeleXA) 40 mg tablet Take 1 Tablet by mouth daily. 11/03/19 20 Active clotrimazole-bet amethasone (LOTRISONE) 1-0.05 % Cream 09/30/19 20 Active S[place]ord 5-325 mg tablet 11/03/19 20 Active LaMICtaL 200 mg tablet daily with lunch. 11/17/19 20 Active pantoprazole (PROTONIX) 40 mg Tablet, Delayed Release (E.C.) 10/01/19 20 Active simvastatin (ZOCOR) 40 mg tablet 09/29/19 20 Active loratadine-pseud oephedrine (CLARITIN-D) 5-120 mg Extended Release 12 hour tabletIndication s:Environmental and seasonal allergies Take 1 Tablet by mouth 2 times daily. 60 Tablet 1 12/25/19 20 Active furosemide (LASIX) 20 mg tabletIndication s:Edema of both legs Take 2 Tablets (40 mg) by mouth daily. 5 Tablet 03/30/20 20 Active nitroglycerin (NITROSTAT) 0.4 mg Tablet, Sublingual Place 0.4 mg under tongue every 5 minutes as needed for Chest Pain. Active multivitamin (DAILY-PETROS) tablet Take 1 Tablet by mouth daily. Active naloxone (NARCAN) 4 mg/spray [place], Non-AerosolIndic ations:nursing home (current) use of opiate analgesic EMERGENCY USE ONLY: Administer 1 spray (4 mg) in one nostril one time. May repeat in alternating nostrils every 2-3 min until responsive or EMS arrives. 2 Each 3 04/22/20 Active NovoLIN 70/30 U-100 Insulin 100 unit/mL vial INJECT SUBCUTANEOUSLY PER SLIDING SCALE UP TO 70 UNITS THREE TIMES DAILY DIRECTED 70 mL 10 05/02/20 Active calamine-menthol -petrolatum-zinc (CALAZIME) 3.5-0.2-69-16.5 % PasteIndications :Type 2 diabetes mellitus with foot ulcer, with long-term current use of insulin Apply to affected area 2 times daily. 113 Gram 05/05/20 Active budesonide (RHINOCORT AQUA) 32 mcg/actuation [place], Non-AerosolIndic ations:Chronic pansinusitis Administer 2 Sprays in each nostril daily. 5 mL 2 05/10/20 Active EPINEPHrine (EPIPEN) 0.3 mg/0.3 mL Auto-InjectorInd ications:Allergy to alpha-gal Inject 0.3 mL (0.3 mg) by intramuscular injection 1 time daily as needed for Anaphylaxis. 2 Each 1 07/04/20 20 Active folic acid (FOLVITE) 1 mg tablet Take 1 Tablet (1 mg) by mouth daily. 30 Tablet 3 07/18/19 Active fluticasone propionate (FLONASE) 50 mcg/spray [place], Suspension nasal inhaler Administer 2 Sprays in each nostril daily. 16 Gram 07/25/19 Active cyclobenzaprine (FLEXERIL) 10 mg tablet Take 1 Tablet (10 mg) by mouth 3 times daily as needed for Spasm. 90 Tablet 1 08/10/19 Active Insulin Syringe-Needle U-100 (TRUEplus Insulin) 1 mL 29 gauge x 1/2 Syringe USE FOUR TIMES DAILY WITH INSULIN. 200 Each 08/25/19 Active Insulin [place], Disposable, 32 gauge x 5/16 NeedleIndication s:Type 2 diabetes mellitus with foot ulcer, with long-term current use of insulin Use with Novolin BID 100 Each 08/25/19 Active prazosin (MINIPRESS) 1 mg capsule Take 1 Capsule (1 mg) by mouth daily at bedtime. [facility] 09/21/19 Active traZODone (DESYREL) 50 mg tablet Take 1 Tablet (50 mg) by mouth daily at bedtime. [facility] pt not sure of the dose. 90 Tablet 3 09/21/19 Active pregabalin (LYRICA) 150 mg CapsuleIndicatio ns:Polyneuropath y associated with underlying disease Take 1 Capsule (150 mg) by mouth every 12 hours. [facility] 180 Capsule 1 10/12/19 Active methotrexate (RHEUMATREX) 2.5 mg Tablet Take 6 Tablets (15 mg) by mouth every 7 days. 30 Tablet 1 10/19/19 Active cyanocobalamin (VITAMIN B-12) 1,000 mcg/mL Solution INJECT 1 MILLILITER (1,000 MCG) BY INTRAMUSCULAR INJECTION EVERY 30 DAYS 1 mL 11/24/19 Active metFORMIN (GLUCOPHAGE XR) 500 mg Extended Release 24 hour tablet Take 1 Tablet (500 mg) by mouth daily with breakfast. 90 Tablet 4 11/24/19 Active buPROPion HCL (WELLBUTRIN XL) 300 mg Extended Release 24 hour tabletIndication s:Primary insomnia TAKE 1 TABLET(300 MG) BY MOUTH DAILY 30 Tablet 11/29/19 Active azelastine (ASTELIN) 137 mcg/actuation nasal sprayIndications :Environmental and seasonal allergies Use 1 spray each nostril 1-4 times per day 90 mL 12/09/19 Active neomycin-polymyx in B-hydrocortisone (CORTISPORIN OTIC) 3.5-10,000-1 mg/mL-unit/mL-% otic suspensionIndica tions:Non-recurr ent acute suppurative otitis media of left ear with spontaneous rupture of tympanic membrane Administer 3 Drops in both ears 4 times daily. 10 mL 1 05/27/20 21 Active insulin NPH-regular (HUMULIN 70-30,NOVOLIN 70-30) 100 unit/mL (70-30) vial Inject 60 Units by subcutaneous injection 2 times daily before meals. 10 mL 11 12/10/19 21 Active lisinopriL (PRINIVIL) 40 mg tabletIndication s:Essential hypertension TAKE 1 TABLET BY MOUTH DAILY 90 Tablet 3 12/15/19 21 Active nystatin (Nystop) 100,000 unit/gram powderIndication s:Skin yeast infection Apply to affected area 2 times daily. 60 Gram 4 12/17/19 21 Active montelukast (Singulair) 10 mg tabletIndication s:Chronic pansinusitis Take 1 Tablet (10 mg) by mouth daily. 90 Tablet 4 12/17/19 21 Active amoxicillin-clav ulanate (AUGMENTIN) 500-125 mg tabletIndication s:Chronic pansinusitis Take 1 Tablet by mouth every 12 hours. 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 12/28/2020 PAD (peripheral artery disease) 12/28/2020 Generalized anxiety disorder 12/28/2020 Psoriatic arthritis 08/12/2019 PTSD (post-traumatic stress disorder) 07/15/2019 Mixed hyperlipidemia 07/15/2019 Chronic obstructive pulmonary disease 07/15/2019 Gastroesophageal reflux disease without esophagi tis 07/15/2019 Chronic midline low back pain with bilateral sci atica 07/15/2019 Seasonal allergic rhinitis due to pollen 020 GUANACO on CPAP 07/15/2019 Polyneuropathy associated with underlying diseas e 07/15/2019 Morbid obesity with BMI of 50.0-59.9, adult 06/15 Type 2 diabetes mellitus wit h foot ulcer, with long-term current use of insulin 03/21/2019 Dyspnea on exertion 03/21/2019 Essential hypertension 03/21/2019 Immunizations Immunization Administration Dates Next Due (SPIKEVAX) (12 YRS UP PRIMAR Y SERIES) COVID-19 VACCINE - MRNA-1273(PF) 100 MCG/0.5 ML IM SUSP 10/08/2020,09/10/2020 INFLUENZA VACCINE QUADRIVALENT 3 YR UP PF IM Family History Relation Name Status Comments Father Mother Social History Tobacco Use Types Packs/Day Years Used Date Smoking Tobacco: Passive Smo ke Exposure - Never Smoker Smokeless Tobacco: Never Tobacco Cessation:Counseling Given: Yes Alcohol Use Standard Drinks/Week Comments Not Currently 0 (1 standard drink = 0.6 oz pur e alcohol) Sex and Gender Information Value Date Recorded Sex Assigned at Not on file Legal Sex Male 4:38 AM SPLITTER HEAD Gender Identity Not on file Sexual Orientation Not on file Last Filed Vital Signs Vital Sign Reading Time Taken Comments Blood Pressure 160/90 12/16/2020 1:51 PM CDT Pulse 96 12/16/2020 1:51 PM CDT Temperature 36.8 C (98.3 F) 12/16/2020 1:51 PM CDT Respiratory Rate 26 12/16/2020 1:51 PM CDT Oxygen Saturation 92% 12/16/2020 1:51 PM CDT Inhaled Oxygen Concentration - - Weight 155.6 kg (343 lb) 12/16/2020 1:51 PM CDT Height 172.7 cm (5' 8 ) 12/16/2020 1:51 PM CDT Body Mass Index 52.15 12/16/2020 1:51 PM CDT Plan of Treatment Health Maintenance Due Date Last Done Comments FIT/ DNA Q 3 YEARS (AUTO ORDER) 1988 FLEX SIG/CT COLONOGRAPHY Q 5 YEARS (AUTO ORDER) 1988 DTAP/TDAP/TD VACCINES (1 - Tdap) 1989 HEPATITIS B VACCINES (1 of 3 - 19+ 3-dose series) 1989 ZOSTER VACCINE (1 of 2) 1989 FIT-DNA Q 3 years 2015 FIT/FOBT Q 1 year 2015 Flex Sig/CT Colonography Q 5 years 2015 FIT/FOBT Q 1 YEAR (AUTO ORDER) 11/28/2018 11/28/2017 DIABETES ANNUAL FOOT EXAM 08/15/2020 08/15/2019 COVID-19 Vaccine (3 - Modern a risk series) 11/05/2020 10/08/2020, 09/10/2020 DIABETES HBA1C Q 6 MONTHS 12/11/20202019, 03/08/2020, 09/22/2019, Additional history exists LDL CHOLESTEROL ANNUAL 03/08/2021 , 09/22/2019, 06/24/2019, Additional history exists DIABETES MICROALBUMIN ANNUAL SCREEN 06/13/2021 06/13/2020, 02/04/2019, 01/20/2018, Additional history exists Traditional Medicare (ACO) A nnual Wellness Visit 12/17/2021 12/16/2020 INFLUENZA VACCINE (#1) 2025 03/30/2020 DIABETES ANNUAL RETINAL EXAM 12/22/202504/2025, 12/22/2024, 06/03/2024, Additional history exists COLORECTAL CANCER SCREENING (AUTO ORDER) 10/22/2027 10/21/2017, 10/21/2017, 10/21/2017 COLORECTAL SCREENING 10/22/2027 10/21/2017, 10/21/2017, 10/21/2017 Colorectal Cancer Screening (AUTO ORDER) 10/22/2027 Colorectal Cancer Screening 10/22/2027 Procedures Procedure Name Priority Date/Time Associated Diagnosis Comments MICROALBUMIN/CREATI NINE RATIO, RANDOM UR Routine 06/13/2020 8:51 AM SPLITTER HEAD Type 2 diabetes mellitus with foot ulcer, with long-term current use of insulin ([facility]) HEMOGLOBIN A1C Routine 06/13/2020 8:51 AM SPLITTER HEAD Type 2 diabetes mellitus with foot ulcer, with long-term current use of insulin ([facility]) LIPID PANEL Routine 03/08/2020 4:31 PM CDT Type 2 diabetes mellitus with proliferative retinopathy of right eye, with long-term current use of insulin, macular edema presence unspecified, unspecified proliferative retinopathy type ([facility]) from Last 3 Months or Most Recently Relevant to Health Maintenance Results * (ABNORMAL) MICROALBUMIN/CREATININE RATIO, RANDOM UR (06/13/2020 8:51 AM SPLITTER HEAD) MICROALBUMIN, URINE 34.6 No Reference Range mg/dL 06/14/2020 7:55 AM [facility] CREATININE, URINE 79.0 40.0 - 278.0 mg/dL 06/14/2020 7:55 AM [facility] Comment:Reference Range vari es with fluid intake and diet. MICROALBUMIN/ CREAT RATIO, UR 438.0(H) <17.0 mg/g 06/14/2020 7:55 AM [facility] Urine URINE SPECIMEN OBTAINED BY CLEAN CATCH PROCEDURE / Unknown Collection / Unknown 06/13/2020 8:51 AM SPLITTER [employer] 06/13/2020 8:[address] [facility] - 06/14/2020 7:55 AM SPLITTER [employer] Condition Microalbumin/Creat ratio Normal Males <17 Normal Females <25 Microalbuminuria Males 17-299 Microalbuminuria Females 25-299 Overt proteinuria >=300 Vonnie Sims PLANNING CONSULTANT URINE ORDERABLES Final Result [facility] IA# [id number] [address] [place] [address] * (ABNORMAL) HEMOGLOBIN A1C (06/13/2020 8:51 AM [facility]) HEMOGLOBIN A1C 7.3(H) See Comment % 06/14/2020 7:40 AM [facility] EST. AVG GLUCOSE, A1C 163 mg/dL 06/14/2020 7:40 AM [facility] Blood Venipuncture / Unknown 06/13/2020 8:51 AM SPLITTER [employer] [facility] 06/14/2020 7:40 AM SPL[employer] HGB A1C INTERPRETATION NORMAL: <5.7% PRE-DIABETES: 5.7 - 6.4% DIABETES: 6.5% OR GREATER Falsely low A1C measurements can occur when: 1. Anemia and/or hemolytic anemia is present. 2. Hemoglobin variants present. 3. Renal failure. 4. Transfusion of blood product in the last 120 days. We recommend ordering a fructosamine test([id number]) to more accurately assess glycemic status if any of the above conditions are present. Vonnie Sims PLANNING CONSULTANT CHEMISTRY ORDERABLES Final Re sult [facility] CLIA# [id number] [address] [place] [address] * (ABNORMAL) LIPID PANEL (03/08/2020 4:31 PM CDT) CHOLESTEROL 207(H) <200 mg/dL 03/08/2020 9:13 PM CDT [facility] TRIGLYCERIDE 128 <150 mg/dL 03/08/2020 9:13 PM CDT [facility] HDL 72(H) 40 - 59 mg/dL 03/08/2020 9:13 PM CDT [facility] LDL CALCULATED 109(H) <100 mg/dL 03/08/2020 9:13 PM CDT [facility] NON-HDL CHOLESTEROL 135(H) <130 mg/dL 03/08/2020 9:13 PM CDT [facility] Blood Venipuncture / Unknown 03/08/2020 4:31 PM CDT 03/08/2020 8:04 PM CDT Narrative [facility] - 03/08/2020 9:13 PM CDT TOTAL CHOLESTEROL mg/dL Desirable <200 Borderline high 200-239 High >=240 TRIGLYCERIDES mg/dL Normal <150 Borderline high 150-199 High 200-499 Very high >=500 HDL CHOLESTEROL mg/dL Low <40 Normal 40-59 Desirable >=60 NON HDL CHOLESTEROL mg/dL Optimal <130 Near Optimal 130-159 Borderline High 160-189 Very High >=190 CALCULATED LDL mg/dL LDL <70, OPTIMAL if have Atherosclerotic cardiovascular disease (ASCVD) or intermediate or higher (>7.5%) 10 year risk of ASCVD including most adults with diabetes. LDL <100, Optimal in adult patients with low (<7.5%) 10 year ASCVD risk LDL 100-160, Suboptimal LDL >160, High LDL >190, Very high ATPIII Guidelines Reference Ranges for Lipid Panels (NCEP/AMA) . Selin Salgado [facility] CHEMISTRY ORDERABLES Health System al Result [facility] CLIA# [id number] [address] [place] [address] from Last 3 Months or Most Recently Relevant to Health Maintenance Insurance [employer]ALTH[employer] MEDICARE [employer] MEDICARE [place] Advance Directives For more information, please contact: [phone] * Full Code (Latest Code Status on File) Date Activated Date Inactivated Comments 03/22/2019 8:05 AM 03/24/2019 5:37 PM Care Teams Biomedical Analytical Scientist Relationship Specialty Start Date End Date Agustina Whiting DO [address] [place] [address] PCP - General Family Practice 06/09/19
--- OUTSIDE RECORDS SUMMARY | 2025-05-08 22:01 | XMS_ITS | Encounter Summary ---
Author Organization [facility] Address [address] [place] [address] Care Team Providers Care Medicinal Chemist Name Role Phone Agustina Whiting Primary Care Provider [phone] Encounter Details Date Type Department Care Team (Latest Contact Info) Description 03/08/2025 Results Follow-Up [facility] [place] [address] [place] [address] October, SYSTEMS INTEGRATION MANAGER [address] [place] [address] HEMOGLOBIN A1C, CBC WITH DIFFERENTIAL, COMPREHENSIVE METABOLIC PANEL, Additional followed-up results: 3 Social History Tobacco Use Types Packs/Day Years [...] AM CDT Legal Sex Male 8:20 AM MARINE PLUMBER Gender Identity Male 04/09/2024 9:07 AM CDT Sexual Orientation Straight 04/09/2024 9: 07 AM CDT documented as of this encounter Plan of Treatment Upcoming Encounters Date Type Department Care Team (Late st Contact Info) Description 06/16/2025 4:00 PM MARINE PLUMBER Office Visit [facility] [place] [address] [place] [phone] Agustina Whiting DO [address] [place] [phone] 06/23/2025 1:10 PM MARINE PLUMBER Office Visit [facility] [place] [address] [facility] [address] [place] [phone] Latonia Clark MD [address] [place] [phone] documented as of this encounter Visit Diagnoses Not on filedocumented in this encounter Additional Health Concerns Assessment Noted Time PHQ-9 Depression Total Score: 2 08/26/19 25 11:06 AM MARINE PLUMBER documented as of this encounter Care Teams Medicinal Chemist Relationship Specialty Start Date End Date Agustina Whiting DO [address] [place] [address] PCP - General Family Practice 06/09/19 documented as of this encounter
--- OUTSIDE RECORDS SUMMARY | 2025-05-08 22:01 | XMS_ITS | Clinical Summary ---
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 07/26/19 24 Active lamoTRIgine (LaMICtal) 200 mg tablet 07/27/19 24 Active potassium chloride (KLOR-CON M20) 20 mEq Extended Release tablet Take 1 Tablet by mouth daily. 02/21/20 24 Active QUEtiapine (SEROquel) 100 mg tablet Take 100 mg by mouth daily at bedtime. 02/27/20 24 Active LORazepam (ATIVAN) 1 mg tabletIndicatio ns:Generalized anxiety disorder Take 0.5 Tablets (0.5 mg) by mouth daily at bedtime. Short term only 20 Tablet 04/23/20 24 Active Nebulizer Accessories KitIndications: Mixed simple and mucopurulent chronic bronchitis (CMS/HCC) Use with albuterol (PROVENTIL,VENT SUMAYA) 2.5 mg /3 mL (0.083 %) Solution for Nebulization 1 Each 11 09/01/19 25 Active ipratropium-alb uteroL (DUONEB) 0.5 mg-3 mg(2.5 mg base)/3 mL Solution for NebulizationInd ications:Mixed simple and mucopurulent chronic bronchitis (CMS/HCC) Take 3 mL by inhalation every 4 hours as needed for Shortness of Breath. 90 Each 3 09/01/19 25 Active portable oxygenIndicatio ns:Mixed simple and mucopurulent chronic bronchitis (CMS/HCC) Face to Face completed within 30 days: yes Length of Need: 99 months By: Nasal Cannula With Activity at 2 L/min. 1 Each 09/11/19 25 Active Additional Information Patient not taking.Reported on 03/08/2025 prazosin (MINIPRESS) 2 mg capsule Take 2 mg by mouth daily. Takes with 5 mg to equal 7 mg daily 09/18/19 25 Active diphenhydrAMINE (BENADRYL) 25 mg tablet Take 25 mg by mouth. Active lactobacillus rhamnosus, GG, (CULTURELLE) 10 billion cell Capsule Take 1 Capsule by mouth daily. 30 Capsule 10/30/19 25 Active insulin NPH-regular (HumuLIN 70/30 U-100 KwikPen) 100 unit/mL (70-30) pen syringeIndicati ons:Type 2 diabetes mellitus with stage 3b chronic kidney disease, with long-term current use of insulin Inject 80 Units by subcutaneous injection 4 times daily before meals and at bedtime. 60 mL 10/30/19 25 Active Insulin Linden, Disposable, (BD Ultra-Fine Short Pen Needle) 31 gauge x 5/16 NeedleIndicatio ns:Type 2 diabetes mellitus with stage 3b chronic kidney disease, with long-term current use of insulin Use to inject with insulin pen up to three times daily 90 Each 6 10/30/19 25 Active atorvastatin (LIPITOR) 40 mg tablet Take 1 tablet by mouth every day 30 Tablet 11 11/17/19 25 Active torsemide (DEMADEX) 20 mg tablet Take 40 mg by mouth 2 times daily. 11/06/19 25 Active pregabalin (LYRICA) 200 mg CapsuleIndicati ons:Type 2 diabetes mellitus with diabetic polyneuropathy, with long-term current use of insulin Take 1 Capsule (200 mg) by mouth every 12 hours. 60 Capsule 3 11/19/19 25 Active HYDROcodone-avery taminophen (NORCO) 5-325 mg tabletIndicatio ns:Type 2 diabetes mellitus with diabetic polyneuropathy, with long-term current use of insulin Take 1 Tablet by mouth 2 times daily as needed for Pain, Moderate. Max Daily Amount: 2 Tablets 60 Tablet 11/19/19 25 Active Insulin Syringe-Needle U-100 1 mL 29 gauge x 1/2 Syringe USE FOUR TIMES DAILY WITH INSULIN. 200 Each 5 11/19/19 25 Active budesonide-form oteroL (Symbicort) 80-4.5 mcg/actuation HFA Aerosol Inhaler Take 1 Puff by inhalation 2 times daily. 11/26/19 25 Active ProChamber Spacer USE WITH SYMBICORT INHALER TWICE DAILY 11/26/19 25 Active insulin lispro (HumaLOG KwikPen Insulin) 100 unit/mL pen syringe If blood sugar is less than 150 take 0 units, if 151 to 200 5 units, 201 to 250 8 units, 251 to 300 12 units, 301 to 350 15 units, if greater than 350 take 18 units. Max dose 72 units a day 15 mL 12/26/19 25 Active pantoprazole (PROTONIX) 40 mg Tablet, Delayed Release (E.C.)Indicatio ns:Gastroesopha geal reflux disease without esophagitis Take 1 Tablet (40 mg) by mouth 2 times daily. 60 Tablet 11 03/05/20 25 Active tamsulosin (FLOMAX) 0.4 mg capsuleIndicati ons:Benign prostatic hyperplasia with urinary frequency Take 2 Capsules (0.8 mg) by mouth daily. 100 Capsule 5 03/08/20 25 Active albuterol sulfate HFA 90 mcg/actuation aerosol inhalerIndicati ons:Mixed simple and mucopurulent chronic bronchitis (CMS/HCC) Inhale 2 puffs by mouth every 4 to 6 hours as needed for chest symptoms/coughi ng 18 Gram 11 03/24/20 25 Active fluticasone propionate (FLONASE) 50 mcg/spray Boncarbo, Suspension nasal inhalerIndicati ons:Chronic vasomotor rhinitis Use 2 sprays in each nostril daily 16 Gram 2 04/23/20 25 Active ipratropium bromide (ATROVENT) 42 mcg (0.06 %) Boncarbo, Non-AerosolIndi cations:Chronic vasomotor rhinitis Use 2 sprays into each nostril twice daily 15 mL 2 04/23/20 25 Active fluticasone propionate (FLONASE) 50 mcg/spray Boncarbo, Suspension nasal inhalerIndicati ons:Chronic vasomotor rhinitis Use 2 sprays in each nostril daily 16 Gram 11 06/22/20 24 2024 Discontinued ipratropium bromide (ATROVENT) 42 mcg (0.06 %) Boncarbo, Non-AerosolIndi cations:Chronic vasomotor rhinitis Use 2 sprays into each nostril twice daily 15 mL 11 06/22/20 24 2024 Discontinued Active Problems Problem Noted Date Diagnosed Date Iron deficiency anemia yarelis ivoryy to inadequate dietary iron intake 09/16/2024 Graves disease 09/12/2024 Mixed simple and mucopurulent chronic bronchitis 09/01/2024 Chronic vasomotor rhinitis 01/29/2024 Male hypogonadism 01/29/2024 Subclinical hyperthyroidism 01/10/2024 Lack of libido 01/10/2024 Hot flashes 01/10/2024 Type 2 diabetes mellitus wit h diabetic autonomic neuropathy, with long-term current use of insulin 09/28/2023 Age-related nuclear cataract of both eyes 2023 Chronic sinus complaints 07/04/2023 Congestive heart failure 03/22/2023 Type 2 diabetes mellitus wit h stage 3b chronic kidney disease, with long-term current use of insulin 01/27/2023 Chronic migraine without aur a without status migrainosus, not intractable 01/27/2023 Diabetic peripheral neuropat hy associated with type 2 diabetes mellitus 01/27/2023 Atherosclerosis of mechoopda co ronary artery of mechoopda heart without angina pectoris 11/05/2022 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 10/02/2022 Arthritis of joint of toe 10/02/2022 Asthma 10/02/2022 Candidiasis of skin 10/02/2022 Gout 10/02/2022 Mechanical complication due to implant Psoriasis 10/02/2022 Swelling of lower extremity 10/02/2022 Vitamin D deficiency 10/02/2022 Vitamin B12 deficiency (non anemic) 12/28/2020 Primary insomnia 12/28/2020 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 12/28/2020 PAD (peripheral artery disease) 12/28/2020 Generalized anxiety disorder 12/28/2020 Psoriatic arthritis 08/12/2019 Mixed hyperlipidemia 07/15/2019 Gastroesophageal reflux disease without esophagi tis 07/15/2019 GUANACO on CPAP 07/15/2019 PTSD (post-traumatic stress disorder) 07/15/2019 Seasonal allergic rhinitis due to pollen 020 Chronic midline low back pain with bilateral sci atica 07/15/2019 Morbid obesity with BMI of 50.0-59.9, adult 12/11/2018 Primary hypertension 03/21/2019 Resolved Problems Problem Noted Date Diagnosed Date Resolved Date Type 1 diabetes mellitus wit h mild nonproliferative retinopathy of both eyes and macular edema 08/27/2023 11/15/2023 Hepatic cirrhosis 10/02/2022 11/05/2022 Chronic obstructive pulmonary disease 07/15/2019 11/05/2022 Type 2 diabetes mellitus wit h foot ulcer, with long-term current use of insulin 03/21/2019 Encounters Date Type Department Care Team Description 05/05/2025 External Device Data STL ABSTRACTION Provider, Abstract 04/23/2025 Refill [facility] [address] [place] [address] Agustina Whiting, Chronic vasomotor rhinitis 04/23/2025 Refill [facility] [address] [place] [address] Joao Alonso, LUBNA Chronic vasomotor rhinitis 04/13/2025 External Device Data STL ABSTRACTION Provider, Abstract 03/24/2025 Refill [facility] [address] [place] [address] Agustina Whiting DO Mixed simple and mucopurulent chronic bronchitis ([facility]) 03/17/2025 External Device Data STL ABSTRACTION Provider, Abstract 03/09/2025 Results Follow-Up [facility] [address] [place] [facility] [place] [address] Diaz, October, GRADE FOREMAN XR KNEE 3 VW LEFT, POC URINALYSIS DIPSTICK AUTOMATED, URINE CULTURE 03/08/2025 4:49 PM CDT - 03/08/2025 11:59 PM CDT Hospital Encounter [facility] [place] [address] [place] [address] October, GRADE FOREMAN Discharge Disposition: Home or Self Care 03/08/2025 4:00 PM CDT Office Visit [facility] [address] [place] [address] October, GRADE FOREMAN UTI symptoms (Primary Dx); Benign prostatic hyperplasia with urinary frequency; Acute pain of left knee 03/08/2025 Refill [facility] [address] [place] [address] October, Benign prostatic hyperplasia with urinary frequency 03/08/2025 Nurse Triage [facility] [address] [place] [address] Agustina Whiting DO 03/08/2025 Results Follow-Up [facility] [address] [place] [address] October, GRADE FOREMAN HEMOGLOBIN A1C, CBC WITH DIFFERENTIAL, COMPREHENSIVE METABOLIC PANEL, Additional followed-up results: 3 03/08/2025 Orders Only [facility] [address] [place] [address] October, GRADE FOREMAN Iron 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 (Primary Dx) 03/05/2025 10:00 AM CDT Office Visit [facility] [address] [place] [address] October, GRADE FOREMAN Chronic respiratory failure with hypoxia and hypercapnia (CMS/HCC) (Primary Dx); Morbid obesity with BMI of 50.0-59.9, adult; Type 2 diabetes mellitus with diabetic polyneuropathy, with long-term current use of insulin (CMS/HCC); Chronic bilateral low back pain with bilateral sciatica; Chronic diastolic congestive heart failure (CMS/HCC); Mixed simple and mucopurulent chronic bronchitis (CMS/HCC); Gastroesophageal reflux disease without esophagitis; Use of cane as ambulatory aid 03/02/2025 External Device Data STL ABSTRACTION Provider, Abstract 02/23/2025 External Device Data STL ABSTRACTION Provider, Abstract 02/12/2025 Refill [facility] [address] [place] [address] Agustina Whiting DO Mixed simple and mucopurulent chronic bronchitis (CMS/HCC) 02/09/2025 10:13 AM CDT - 02/09/2025 11:59 PM CDT Hospital Encounter [facility] [address] [place] [address] Geena Lai MD Discharge Disposition: Home or Self Care 02/09/2025 10:12 AM CDT - 02/09/2025 11:59 PM CDT Hospital Encounter [facility] [address] [place] [address] Geena Lai MD Discharge Disposition: Home or Self Care 02/09/2025 Orders Only [facility] Admitting [address] [facility] [address] [place] [address] Geena Lai MD Lumbosacral spondylosis without myelopathy (Primary Dx); Cervical spondylosis 02/08/2025 Refill [facility] [address] [place] [address] Agustina Whiting DO from Last 3 Months Immunizations Immunization Administration Dates Next Due (Moderna Bivalent)(6 Mos Up) COVID-19 Vaccine - Emergency Use Authorization, MRNA(Pf) 50 Mcg/0.5 Ml Im Susp 05/04/2022 (SHINGRIX)(50 YRS UP) ZOSTER VACCINE RECOMBINANT, 0.5 ML, IM 05/04/2022 (SPIKEVAX) (12 YRS UP PRIMAR Y SERIES) COVID-19 VACCINE - MRNA-1273(PF) 100 MCG/0.5 ML IM SUSP 10/08/2020,09/10/2020 INFLUENZA VACCINE QUADRIVALENT 3 YR UP PF IM 02/2023,03/30/2020 INFLUENZA VACCINE QUADRIVALENT 6 MOS UP PF IM INFLUENZA VACCINE TRIVALENT SPLIT VIRUS, (6 MOS UP), 0.5ML (PF), IM 04/23/2024 Influenza Seasonal Unspecified Formulation IM ,04/14/2021 Family History Medical History Relation Name Comments Allergy-severe Father DL Arthritis-rheumatoid Father DL Asthma Father DL It devloped in copd Depression Father DL Diabetes Father DL Hearing Loss Father DL Worse as got ol petros Hypertension Father DL Emphysema Maternal Grandfather RW Stroke Maternal Grandfather RW Arthritis Mother RL Arthritis-osteo Mother RL Depression Mother RL Diabetes Mother RL Gout Mother RL Heart Disease Mother RL Congestive hea rt failure High Cholesterol Mother RL Hypertension Mother RL Migraines Mother RL Osteoporosis Mother RL Stroke Mother RL High Cholesterol Paternal Grandfather RW Stroke Paternal Grandfather RW Arthritis-rheumatoid Paternal Grandmother MW Hypertension Paternal Grandmother MW Osteoporosis Paternal Grandmother MW Stroke Paternal Grandmother MW Relation Name Status Comments Father DL Alive Maternal Grandfather RW Alive Mother RL Alive Paternal Grandfather RW Alive Paternal Grandmother MW Alive Social History Tobacco Use Types Packs/Day Years Used Date Smoking Tobacco: Never Passive Smoke Exposure: Never Smokeless Tobacco: Never Tobacco Cessation:Counseling Given: No Alcohol Use Standard Drinks/Week Comments Not Currently [...] AM CDT Legal Sex Male 8:20 AM COUNTER FORMER Gender Identity Male 04/09/2024 9:07 AM CDT Sexual Orientation Straight 04/09/2024 9: 07 AM CDT Last Filed Vital Signs Vital Sign Reading Time Taken Comments Blood Pressure 122/64 03/08/2025 3:33 PM CDT Pulse 97 03/08/2025 3:33 PM CDT Temperature 36.2 C (97.1 F) 03/08/2025 3:33 PM CDT Respiratory Rate 18 03/08/2025 3:33 PM CDT Oxygen Saturation 93% 03/08/2025 3:33 PM CDT Inhaled Oxygen Concentration - - Weight 152 kg (335 lb) 03/08/2025 3:33 PM CDT Height 170.2 cm (5' 7 ) 03/08/2025 3:33 PM CDT Body Mass Index 52.47 03/08/2025 3:33 PM CDT Plan of Treatment Upcoming Encounters Date Type Department Care Team (Late st Contact Info) Description 06/16/2025 4:00 PM COUNTER FORMER Office Visit [facility] [address] [place] [address] Agustina Whiting, DO [address] [place] [address] 06/23/2025 1:10 PM COUNTER FORMER Office Visit [facility] [place] [address] [place] [address] [place] [phone] Latonia Clark MD [address] [place] [address] Health Maintenance Due Date Last Done Comments FIT/ DNA Q 3 YEARS (AUTO ORDER) 1988 FLEX SIG/CT COLONOGRAPHY Q 5 YEARS (AUTO ORDER) 1988 HEPATITIS B VACCINES (1 of 3 - 19+ 3-dose series) 1989 FIT-DNA Q 3 years 2015 FIT/FOBT Q 1 year 2015 Flex Sig/CT Colonography Q 5 years 2015 DTAP/TDAP/TD VACCINES (2 - T d or Tdap) 09/11/2017 09/11/2007 FIT/FOBT Q 1 YEAR (AUTO ORDER) 11/28/2018 11/28/2017 ZOSTER VACCINE (2 of 2) 06/29/2022 05/04/2022 DIABETES ANNUAL FOOT EXAM 05/09/20242022, 08/18/2021, 08/15/2019 Traditional Medicare (ACO) A nnual Wellness Visit 05/10/2024 05/09/2023, 04/27/2022 INFLUENZA VACCINE (#1) 2025 4, 04/14/2024, 05/22/2023, Additional history exists COVID-19 Vaccine (2024-08 6 season) 2025 05/04/2022, 08/13/2021, 03/16/2021, Additional history exists DIABETES: A1C (Auto Order) 06/05/202503/05, 09/11/2024, 03/26/2024, Additional history exists DIABETES HBA1C Q 6 MONTHS 09/05/20252024, 09/11/2024, 03/26/2024, Additional history exists DIABETES MICROALBUMIN ANNUAL SCREEN 10/02/2025 10/02/2024, 10/01/2023, 06/13/2020, Additional history exists DIABETES ANNUAL RETINAL EXAM 12/22/202504/2025, 12/22/2024, 12/22/2024, Additional history exists LDL CHOLESTEROL ANNUAL 03/05/2026 5, 09/11/2024, 09/20/2023, Additional history exists COLORECTAL CANCER SCREENING (AUTO ORDER) 10/22/2027 10/21/2017, 10/21/2017, 10/21/2017, Additional history exists COLORECTAL SCREENING 10/22/2027 10/21/2017, 10/21/2017, 10/21/2017, Additional history exists Colorectal Cancer Screening (AUTO ORDER) 10/22/2027 Colorectal Cancer Screening 10/22/2027 Procedures Procedure Name Priority Date/Time Associated Diagnosis Comments XR KNEE 3 VW LEFT Routine 03/08/2025 5:4 7 PM CDT Acute pain of left knee URINE CULTURE Routine 03/08/2025 4:12 PM CDT UTI symptoms POC URINALYSIS DIPSTICK AUTOMATED Routine 03/08/2025 3:44 PM CDT UTI symptoms QUEST TEST IN QUESTION (ACTION NEEDED) (NO MY CHART) Routine 03/05/2025 10:26 AM CDT LIPID PANEL Routine 03/05/2025 10:26 AM CDT Type 2 diabetes mellitus with diabetic polyneuropathy, with long-term current use of insulin ([facility]/HCC) TSH Routine 03/05/2025 10:26 AM CDT Type 2 diabetes mellitus with diabetic polyneuropathy, with long-term current use of insulin ([facility]) COMPREHENSIVE METABOLIC PANEL Routine 03/05/2025 10:26 AM CDT Type 2 diabetes mellitus with diabetic polyneuropathy, with long-term current use of insulin (CMS/HCC) CBC WITH DIFFERENTIAL Routine 03/05/2025 10:26 AM CDT Type 2 diabetes mellitus with diabetic polyneuropathy, with long-term current use of insulin ([facility]) HEMOGLOBIN A1C Routine 03/05/2025 10:26 AM CDT Type 2 diabetes mellitus with diabetic polyneuropathy, with long-term current use of insulin (CMS/HCC) XR LUMBAR SPINE W BENDING 6+VW Routine 02/09/2025 11:05 AM CDT Lumbosacral spondylosis without myelopathy Cervical spondylosis XR CERVICAL SPINE MIN 6 VIEWS Routine 02/09/2025 11:04 AM CDT Lumbosacral spondylosis without myelopathy Cervical spondylosis MICROALBUMIN/CREATININ E RATIO, RANDOM UR Routine 10/02/2024 1:09 PM CDT Type 2 diabetes mellitus with stage 3b chronic kidney disease, with long-term current use of insulin ([facility]) HM DIABETES EYE EXAM Routine 06/15/2021 ENDOSCOPY, COLON, SCREENING Routine 10/21/2017 from Last 3 Months or Most Recently Relevant to Health Maintenance Results * XR KNEE 3 VW LEFT (03/08/2025 5:47 PM CDT) Anatomical Region Laterality Modality Lower Extremity Computed Radiogr aphy 03/08/2025 5:47 PM CDT Impressions 03/09/2025 9:18 AM CDT IMPRESSION: No acute osseous abnormality is noted. Narrative 03/09/2025 9:18 AM CDT XR KNEE 3 VW LEFT 03/08/2025 5:47 PM Reason For Exam: See Diagnosis. Diagnosis: Acute pain of left knee. COMPARISON: None FINDINGS: No acute fracture, subluxation, dislocation, or destructive osseous lesion is seen. Moderate tricompartmental DJD. Soft tissues are grossly unremarkable. Procedure Note Weston Butler MD - 03/09/2025 XR KNEE 3 VW LEFT 03/08/2025 5:47 PM Reason For Exam: See Diagnosis. Diagnosis: Acute pain of left knee. COMPARISON: None FINDINGS: No acute fracture, subluxation, dislocation, or destructive osseous lesion is seen. Moderate tricompartmental DJD. Soft tissues are grossly unremarkable. IMPRESSION: No acute osseous abnormality is noted. October [facility] DIAGNOSTIC IMAGING ORDERABLES Fi nal Result * URINE CULTURE (03/08/2025 4:12 PM CDT) URINE CULTURE SEE NOTE Daily [facility] Comment: CULTURE, URINE, ROUTINE Micro Number: [id number] Test Status: Final Specimen Source: Urine, clean catch Specimen Quality: Adequate Result: No Growth Test Performed at: [facility] [address] [place] [address] Bessie Thayer MD Urine URINE SPECIMEN OBTAINED BY CLEAN CATCH PROCEDURE / Unknown 03/08/2025 4:12 PM CDT 03/09/2025 4:13 AM CDT October GRADE FOREMAN MICROBIOLOGY - GENERAL ORDERABLE S Final Result [facility] [phone] [facility] [address] [place] [address] * (ABNORMAL) POC URINALYSIS DIPSTICK AUTOMATED (03/08/2025 3:44 PM CDT) COLOR UA POC Yellow Pale to Dark Yellow [facility] CLARITY UA POC Clear Clear, Other ME [facility] GLUCOSE UA POC 3+(A) Negative, Normal [facility] BILIRUBIN UA POC Negative Negative [facility] KETONES UA POC Negative Negative [facility] SPECIFIC GRAVITY UA POC <=1.005 1.000 - 1.030 [facility] BLOOD UA POC Negative Negative [facility] PH UA POC 5.5 5.0 - 8.0 [facility] PROTEIN UA POC Negative Negative [facility] UROBILINOGEN UA POC 0.2 <2.0 mg/dL [facility] NITRITE UA POC Negative Negative [facility] LEUKOCYTE ESTERASE UA POC Negative Negative [facility] KIT LOT NUMBER POC [phone] [facility] KIT EXP DATE POC [id number] [facility] Urine 03/08/2025 3:44 PM CDT October GRADE FOREMAN POINT OF CARE TESTING Final Resu lt [facility] CLIA# [id number] [address] [place] [address] * QUEST TEST IN QUESTION (ACTION NEEDED) (NO MY CHART) (03/05/2025 10:26 AM CDT) REPORT/SPECIMEN COMMENT [facility] Comment: Whole blood, unspun or partially spun gel barrier tube was received more than 6 hours since collection. A false elevation of K, Phos and LD as well as a false decrease in glucose may occur due to prolonged contact with red cells. Test Performed at: [facility] [address] [place] [address] Bessie Thayer MD 03/05/2025 10:2 6 AM CDT 03/06/2025 1:13 AM CDT October [facility] CHEMISTRY ORDERABLES Final Resul t [facility] [phone] [facility] [address] [place] [address] * (ABNORMAL) CBC WITH DIFFERENTIAL (03/05/2025 10:26 AM CDT) WBC 13.8(H) 3.8 - 10.8 Thousand/ uL [facility] RBC 4.26 4.20 - 5.80 Million/u L [facility] HEMOGLOBIN 12.6(L) 13.2 - 17.1 g/dL [facility] HEMATOCRIT 39.3 38.5 - 50.0 % [facility] MCV 92.3 80.0 - 100.0 fL [facility] MCH 29.6 27.0 - 33.0 pg [facility] MCHC 32.1 32.0 - 36.0 g/dL [facility] Comment: For adults, a slight decrease in the calculated MCHC value (in the range of 30 to 32 g/dL) is most likely not clinically significant; however, it should be interpreted with caution in correlation with other red cell parameters and the patient's clinical condition. RDW 15.8(H) 11.0 - 15.0 % [facility] PLATELETS 260 140 - 400 Thousand/ uL [facility] MPV 10.6 7.5 - 12.5 fL [facility] NEUTROPHIL ABSOLUTE 11,012(H) 1,500 - 7,800 cells/uL [facility] LYMPHOCYTE ABSOLUTE 1,904 850 - 3,900 cells/uL [facility] MONOCYTE ABSOLUTE 635 200 - 950 cells/uL [facility] EOSINOPHIL ABSOLUTE 152 15 - 500 cells/uL [facility] BASOPHILS ABSOLUTE 97 0 - 200 cells/uL [facility] NEUTROPHIL 79.8 % [facility] LYMPHOCYTES 13.8 % [facility] MONOCYTE 4.6 % [facility] EOSINOPHILS 1.1 % [facility] BASOPHILS 0.7 % [facility] Comment: Test Performed at: [facility] [address] [place] [id number] Bessie Thayer MD Blood 03/05/2025 10:2 6 AM CDT 03/06/2025 1:13 AM CDT October [facility] HEMATOLOGY ORDERABLES Final Resu lt [facility] [phone] [facility] [address] [place] [phone] * TSH (03/05/2025 10:26 AM CDT) TSH 0.79 0.40 - 4.50 mIU/L [facility] Comment: Test Performed at: [facility] [address] [place] [id number] Bessie Thayer MD Blood 03/05/2025 10:2 6 AM CDT 03/06/2025 1:13 AM CDT October [facility] CHEMISTRY ORDERABLES Final Resul t [facility] [phone] [facility] [address] * (ABNORMAL) HEMOGLOBIN A1C (03/05/2025 10:26 AM CDT) HEMOGLOBIN A1C 8.5(H) <5.7 % [facility] Comment: For someone without known diabetes, a hemoglobin A1c value of 6.5% or greater indicates that they may have diabetes and this should be confirmed with a follow-up test. For someone with known diabetes, a value <7% indicates that their diabetes is well controlled and a value greater than or equal to 7% indicates suboptimal control. A1c targets should be individualized based on duration of diabetes, age, comorbid conditions, and other considerations. Currently, no consensus exists regarding use of hemoglobin A1c for diagnosis of diabetes for children. ESTIMATED AVERAGE GLUCOSE (MG/DL) 197 mg/dL [facility] ESTIMATED AVERAGE GLUCOSE (MMOL/L) 10.9 mmol/L [facility] Comment: Test Performed at: [facility] [address] [facility] [place] [address] Bessie Thayer MD Blood 03/05/2025 10:2 6 AM CDT 03/06/2025 1:13 AM CDT October [facility] CHEMISTRY ORDERABLES Final Resul t [facility] [phone] [facility] [address] [facility] [place] [address] * (ABNORMAL) LIPID PANEL (03/05/2025 10:26 AM CDT) Pathologist [facility] CHOLESTEROL 195 <200 mg/dL [facility] HDL 37(L) > OR = 40 mg/dL [facility] TRIGLYCERIDE 384(H) <150 mg/dL [facility] Comment: If a non-fasting specimen was collected, consider repeat triglyceride testing on a fasting specimen if clinically indicated. Wm et al. J. of Clin. Lipidol. 2015;9:129-169. LDL CALCULATED 107(H) mg/dL (calc) [facility] Comment: Reference range: <100 Desirable range <100 mg/dL for primary prevention; <70 mg/dL for patients with CHD or diabetic patients with > or = 2 CHD risk factors. LDL-C is now calculated using the Pj calculation, which is a validated novel method providing better accuracy than the Friedewald equation in the estimation of LDL-C. Javier RICH et al. LASHELL. 2013;310(19): 5367-4681 (http://education.MedLink/faq/DNG679) CHOL/HDL RATIO 5.3(H) <5.0 (calc) [facility] NON-HDL CHOLESTEROL 158(H) <130 mg/dL (calc) [facility] Comment: For patients with diabetes plus 1 major ASCVD risk factor, treating to a non-HDL-C goal of <100 mg/dL (LDL-C of <70 mg/dL) is considered a therapeutic option. Test Performed at: [facility] [address] [place] [address] Bessie Thayer MD Blood 03/05/2025 10:2 6 AM CDT 03/06/2025 1:13 AM CDT October [facility] CHEMISTRY ORDERABLES Final Resul t [facility] [phone] [place] [address] [place] [address] * (ABNORMAL) COMPREHENSIVE METABOLIC PANEL (03/05/2025 10:26 AM CDT) GLUCOSE 110(H) 65 - 99 mg/dL [facility] Comment: Fasting reference interval For someone without known diabetes, a glucose value between 100 and 125 mg/dL is consistent with prediabetes and should be confirmed with a follow-up test. BUN 39(H) 7 - 25 mg/dL [facility] CREATININE 1.78(H) 0.70 - 1.30 mg/dL [facility] GFR 45(L) > OR = 60 mL/min/1.7 3m2 [facility] BUN/CREAT RATIO 22 6 - 22 (calc) [facility] SODIUM 144 135 - 146 mmol/L [facility] POTASSIUM 3.6 3.5 - 5.3 mmol/L [facility] CHLORIDE 100 98 - 110 mmol/L [facility] CO2 30 20 - 32 mmol/L [facility] CALCIUM 9.5 8.6 - 10.3 mg/dL [facility] TOTAL PROTEIN 6.6 6.1 - 8.1 g/dL [facility] ALBUMIN 4.1 3.6 - 5.1 g/dL [facility] GLOBULIN 2.5 1.9 - 3.7 g/dL (calc) [facility] ALBUMIN/GLOBULIN RATIO 1.6 1.0 - 2.5 (calc) [facility] BILIRUBIN TOTAL 0.3 0.2 - 1.2 mg/dL [facility] ALKALINE PHOSPHATASE 88 35 - 144 U/L [facility] AST 18 10 - 35 U/L [facility] ALT 14 9 - 46 U/L [facility] Comment: Test Performed at: [facility] [address] [place] [address] Bessie Thayer MD Blood 03/05/2025 10:2 6 AM CDT 03/06/2025 1:13 AM CDT October [facility] CHEMISTRY ORDERABLES Final Resul t [facility] [phone] [facility] [place] [address] [place] [address] * XR LUMBAR SPINE W BENDING 6+VW (02/09/2025 11:05 AM CDT) Anatomical Region Laterality Modality Spine Computed Radiogr aphy 02/09/2025 11:0 5 AM CDT Impressions 02/09/2025 2:36 PM CDT IMPRESSION: Please see below. EXAM: XR LUMBAR SPINE W BENDING 6+VW DATE/TIME OF EXAM: 02/09/2025 11:05 AM REASON FOR STUDY: See Diagnosis DIAGNOSIS: Lumbosacral spondylosis without myelopathy; Cervical spondylosis COMPARISON: CT October 11, 2022 FINDINGS: Post-surgical Change: L4-S1 posterior spinal fusion. Bones: No evidence of an acute fracture. Mineralization: Within normal limits. Alignment: Right convex lumbar curvature. Degenerative Changes: Multilevel intervertebral disc space narrowing and facet arthropathy. Soft Tissue: No acute abnormality. Retained colonic stool. IMPRESSION: No acute bony finding. Postsurgical changes without apparent hardware complication. Narrative 02/09/2025 2:36 PM CDT Procedure Note Sushma Sena MD - 02/09/2025 IMPRESSION: Please see below. EXAM: XR LUMBAR SPINE W BENDING 6+VW DATE/TIME OF EXAM: 02/09/2025 11:05 AM REASON FOR STUDY: See Diagnosis DIAGNOSIS: Lumbosacral spondylosis without myelopathy; Cervical spondylosis COMPARISON: CT October 11, 2022 FINDINGS: Post-surgical Change: L4-S1 posterior spinal fusion. Bones: No evidence of an acute fracture. Mineralization: Within normal limits. Alignment: Right convex lumbar curvature. Degenerative Changes: Multilevel intervertebral disc space narrowing and facet arthropathy. Soft Tissue: No acute abnormality. Retained colonic stool. IMPRESSION: No acute bony finding. Postsurgical changes without apparent hardware complication. Geena Thomson MD DIAGNOSTIC I JAKOB ORDERABLES Final Result * XR CERVICAL SPINE MIN 6 VIEWS (02/09/2025 11:04 AM CDT) Anatomical Region Laterality Modality Spine Computed Radiogr aphy 02/09/2025 11:0 4 AM CDT Impressions 02/09/2025 2:34 PM CDT IMPRESSION: Please see below. EXAM: XR CERVICAL SPINE MIN 6 VIEWS DATE/TIME OF EXAM: 02/09/2025 11:04 AM REASON FOR STUDY: See Diagnosis DIAGNOSIS: Lumbosacral spondylosis without myelopathy; Cervical spondylosis COMPARISON: None FINDINGS: Post-surgical Change: C4-C7 ACDF. C4 screw appears fractured. Bones: No evidence of an acute fracture. Mineralization: Within normal limits. Alignment: Within normal limits. Degenerative Changes: No significant intervertebral disc space narrowing. Mild multilevel bony foraminal narrowing more prominent on the left, which could be related to technique. Soft Tissue: No acute abnormality. IMPRESSION: No acute bony finding. C4-C7 ACDF. C4 screw appears fractured. Narrative 02/09/2025 2:34 PM CDT Procedure Note Sushma Sena MD - 02/09/2025 IMPRESSION: Please see below. EXAM: XR CERVICAL SPINE MIN 6 VIEWS DATE/TIME OF EXAM: 02/09/2025 11:04 AM REASON FOR STUDY: See Diagnosis DIAGNOSIS: Lumbosacral spondylosis without myelopathy; Cervical spondylosis COMPARISON: None FINDINGS: Post-surgical Change: C4-C7 ACDF. C4 screw appears fractured. Bones: No evidence of an acute fracture. Mineralization: Within normal limits. Alignment: Within normal limits. Degenerative Changes: No significant intervertebral disc space narrowing. Mild multilevel bony foraminal narrowing more prominent on the left, which could be related to technique. Soft Tissue: No acute abnormality. IMPRESSION: No acute bony finding. C4-C7 ACDF. C4 screw appears fractured. Geena Thomson MD DIAGNOSTIC I MAGING ORDERABLES Final Result * (ABNORMAL) MICROALBUMIN/CREATININE RATIO, RANDOM UR (10/02/2024 1:09 PM CDT) Creatinine, Urine 91 20 - 320 mg/dL [facility] MICROALBUMIN, URINE 7.7 See Note: mg/dL [facility] Comment: Reference Range: Reference Range Not established MICROALBUMIN/CREAT RATIO, UR 85(H) <30 mg/g creat [facility] Comment: The ADA defines abnormalities in albumin excretion as follows: Albuminuria Category Result (mg/g creatinine) Normal to Mildly increased <30 Moderately increased 30-299 Severely increased > OR = 300 The ADA recommends that at least two of three specimens collected within a 3-6 month period be abnormal before considering a patient to be within a diagnostic category. Test Performed at: [facility] [address] [place] [address] Bessie Thayer MD Urine URINE SPECIMEN OBTAINED BY CLEAN CATCH PROCEDURE / Unknown 10/02/2024 1:09 PM CDT 10/03/2024 4:48 AM CDT us October Diaz [employer]ADE FOREM[employer] URINE ORDERABLES Final Result [facility] [phone] [facility] [address] [place] [address] * DIABETES EYE EXAM (06/15/2021) us Abstract Provider HEALTH MAINTENANCE Final Resul t * (ABNORMAL) ENDOSCOPY, COLON, SCREENING (10/21/2017) us Abstract Provider GI PROCEDURE ORDERABLES Final Result from Last 3 Months or Most Recently Relevant to Health Maintenance Insurance MEDICARE [address] [facility] [employer] PPO [id number] MEDICARE [address] [facility] [employer] PPO [id number] 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
--- OUTSIDE RECORDS SUMMARY | 2025-05-08 22:01 | XMS_ITS | Encounter Summary ---
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 Gender Identity Not on file Sexual Orientation Not on file documented as of this encounter Plan of Treatment Not on file documented as of this encounter Visit Diagnoses Diagnosis Irritable bowel syndrome- Primary Anxiety state, unspecified documented in this encounter Additional Health Concerns Infection Onset Date Last Indicated Resolved Time R/O COVID-19 04/15/2020 04/15/2020 04/17/2020 5:45 AM CDT R/O COVID-19 04/22/2020 04/22/2020 04/24/2020 12:4 6 AM CDT documented as of this encounter Care Teams Brim Buster Relationship Specialty Start Date End Date Agustina Whiting DO [address] [place] [address] PCP - General Family Practice 06/09/19 documented as of this encounter
--- OUTSIDE RECORDS SUMMARY | 2025-05-08 22:01 | XMS_ITS | Encounter Summary ---
Author Organization [facility] Address 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 Gender Identity Male 04/09/2024 9:07 AM CDT Sexual Orientation Straight 04/09/2024 9: 07 AM CDT documented as of this encounter Plan of Treatment Upcoming Encounters Date Type Department Care Team (Late st Contact Info) Description 06/16/2025 4:00 PM WOOD ROOM HAND Office Visit [facility] [place] [address] [place] [phone] Agustina Whiting DO [address] [place] [address] 06/23/2025 1:10 PM WOOD ROOM HAND Office Visit [facility] [place] [address] [place] [address] Latonia Clark MD [address] [place] [address] documented as of this encounter Visit Diagnoses Not on filedocumented in this encounter Additional Health Concerns Assessment Noted Time PHQ-9 Depression Total Score: 2 08/26/19 25 11:06 AM WOOD ROOM HAND documented as of this encounter Care Teams Veneer Taper Relationship Specialty Start Date End Date Agustina Whiting DO [address] [facility] [place] [phone] PCP - General Family Practice 06/09/19 documented as of this encounter
--- OUTSIDE RECORDS SUMMARY | 2025-05-08 22:01 | XMS_ITS | Encounter Summary ---
Author Organization [facility] Address [address] [place] [address] Care Team Providers Care Children Counselor Name Role Phone Agustina Whiting DO Primary Care Provider [phone]- [phone] Encounter Details Date Type Department Care Team (Latest Contact Info) Description 05/22/2002 Outpatient Historical [facility] Ortiz Hardwick MD [address] [place] [phone] HYPERLIPIDEMIA NEC/NOS (Primary Dx) Social History Tobacco Use Types Packs/Day Years Used Date Smoking Tobacco: Never Assessed Sex and Gender Information Value Date Recorded Sex Assigned at Not on file 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 Gender Identity Not on file Sexual Orientation Not on file documented as of this encounter Plan of Treatment Not on file documented as of this encounter Visit Diagnoses Diagnosis Other and unspecified hyperlipidemia- Primary documented in this encounter Additional Health Concerns Infection Onset Date Last Indicated Resolved Time R/O COVID-19 04/15/2020 04/15/2020 04/17/2020 5:45 AM CDT R/O COVID-19 04/22/2020 04/22/2020 04/24/2020 12:4 6 AM CDT documented as of this encounter Care Teams Children Counselor Relationship Specialty Start Date End Date Agustina Whiting DO [address] [place] [address] PCP - General Family Practice 06/09/19 documented as of this encounter
[2025-05-08 22:08] VITALS: BP 68/40; O2SAT 93
--- NOTE | 2025-05-08 22:21 | XRR_ITS ---
PROCEDURE INFORMATION: Exam: XR Chest Exam date and time: 05/08/2025 10:43 PM Age: 54 years old Clinical indication: Other: General weakness/hypotension; Prior surgery; Surgery date: 6+ months; Surgery type: Cervical fusion; General weakness with hypotension TECHNIQUE: Imaging protocol: Radiologic exam of the chest. Views: 1 view. COMPARISON: CR XR chest 1V portable [id number] 08/30/2024 2:58 PM FINDINGS: Lungs: No acute consolidation. Mild scarring or granulomatous change at the inferior lingula similar to prior imaging. No overt pulmonary edema. Pleural spaces: Unremarkable. No pleural effusion. No pneumothorax. Heart/Mediastinum: Unremarkable. No cardiomegaly. Bones/joints: No acute findings. XR/XR chest 1V portable [id number] IMPRESSION: No acute findings.
--- NOTE | 2025-05-08 22:21 | CTR_ITS ---
PROCEDURE INFORMATION: Exam: CT Head Without Contrast Exam date and time: 05/08/2025 10:59 PM Age: 54 years old Clinical indication: Dizziness with hypotension; Additional info: Dizziy TECHNIQUE: Imaging protocol: Computed tomography of the head without contrast. Radiation optimization: All CT scans at this facility use at least one of these dose optimization techniques: automated exposure control; mA and/or kV adjustment per patient size (includes targeted exams where dose is matched to clinical indication); or iterative reconstruction. COMPARISON: CT angio headneck* [id number] 02/19/2022 1:29 AM RADIATION DOSE METRICS: Total DLP (mGy-cm): 1512.77 FINDINGS: Brain: No acute infarction, hemorrhage, mass, or extra-axial fluid collection is identified. No midline shift. Cerebral ventricles: No hydrocephalus. Paranasal sinuses: Paranasal sinuses are grossly clear. Mastoid air cells: Mastoid air cells are grossly clear. Bones: Calvarium appears intact. Soft tissues: Unremarkable. CT/CT head wo con* [id number] IMPRESSION: No acute intracranial abnormality.
--- NOTE | 2025-05-08 22:22 | ECG_ITS ---
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1970 Requested By: Remy Hirsch Order Number: [id number] Sergio MD: CRISTIAN HENRY Measurements Intervals [place] Rate: 64 P: 25 NE: 151 QRS: 3 QRSD: 99 T: 30 QT: 408 QTc: 422 Interpretive Statements SINUS RHYTHM POSSIBLE ANTERIOR MYOCARDIAL INFARCTION , OF INDETERMINATE AGE [30 ms Q WAVE IN V3/V4, OR R < 0.2 mV IN V4] Compared to ECG 08/30/2024 14:34:07 Right-axis deviation no longer present Myocardial infarct finding still present Electronically Signed On 05-09-2025 22:25:43 CDT by CRISTIAN HENRY [email or web address]
[2025-05-08 22:30] LABS: Hematocrit 38.0 % (37-53); Hemoglobin 12.00 g/dL (11.27-16.99); Mean Corpuscular HGB Conc 31.6 g/dL (30-55); Mean Corpuscular Hemoglobin 28.2 pg (27-33); Mean Corpuscular Volume 89.4 fl (82-101); Nucleated Red Blood Cells % 0 %; Platelet Count 317 10^3/cmm (157-399); Red Blood Count 4.25 10^6/uL (3.85-5.65); White Blood Count 10.15 10^3/uL (3.29-11.43)
[2025-05-08] MEDS: SODIUM CHLORIDE 0.9% 4278.27 ML IV (22:30)
--- NOTE | 2025-05-08 22:31 | W.ED.DIZZY ---
HPI - Dizziness General: Chief Complaint: Dizziness Stated Complaint: DIZZY Time Seen by Provider: 05/08/25 22:00 History of Present Illness: HPI Narrative: 54-year-old male patient with a history of diabetes, heart failure, chronic hypoxic respiratory failure. He presents after period of dizziness he experienced at home. He said he felt generally well today, even mowed the yard he says. He gone to the grocery store, and came back home. Around 7 to 7:30 PM, he began to feel faint. He describes this as feeling dizzy, although the dizziness was not vertiginous. He went to the refrigerator and felt extremely faint, nearly passing out. He states he made it back to his chair, but barely. He was having trouble remembering where his phone was, and was having trouble talking at that time. He lives alone. He does not describe any focal weakness. He notes that he had some chest discomfort earlier in the day, but not during this episode. He also notes that he had a headache earlier in the day which resolved after Excedrin Migraine this morning. He denies fever. Denies cough. Related Data Home Medications ?Medication ?Instructions ?Recorded ?Confirmed pregabalin 200 mg capsule (Lyrica) 200 mg PO Q12H 09/15/19 03/23/25 insulin human U-100 NPH-regulr 80 unit SUBCUT BID 06/20/20 03/23/25 70-30 mix 100 unit/mL subcutaneous susp (Humulin 70/30 U-100 Insulin) Held on 09/27/23. Instructions: see pcp montelukast 10 mg tablet 10 mg PO DAILY 07/24/21 03/23/25 albuterol sulfate 90 mcg/actuation 2 puff inhalation .Q4-6H PRN 05/01/22 03/23/25 aerosol inhaler Shortness Of Breath cetirizine 10 mg tablet (Zyrtec) 10 mg PO DAILY 05/01/22 03/23/25 diphenhydramine HCl 25 mg tablet 25 mg PO BID PRN Allergy Symptoms 05/01/22 03/23/25 (Benadryl Allergy) oxymetazoline 0.05 % nasal spray 2 spray intranasal Q12H PRN Nasal 05/01/22 03/23/25 (Nasal Alpha (oxymetazoline)) Congestion atorvastatin 40 mg tablet 40 mg PO DAILY 10/31/22 03/23/25 dapagliflozin propanediol 10 mg 10 mg PO DAILY 09/24/23 03/23/25 tablet (Farxiga) hydrocodone 5 mg-acetaminophen 325 1 tab PO .Q4-6H PRN Pain 09/24/23 03/23/25 mg tablet pantoprazole 40 mg tablet,delayed 40 mg PO BID 09/24/23 03/23/25 release furosemide 40 mg tablet 80 mg PO BID 07/20/24 03/23/25 potassium chloride 20 mEq 20 meq PO DAILY 07/20/24 03/23/25 tablet,extended release(part/cryst) fluticasone propionate 50 2 spray intranasal DAILY 08/30/24 03/23/25 mcg/actuation nasal spray,suspension ipratropium bromide 42 mcg (0.06 1 spray intranasal DAILY 08/30/24 03/23/25 %) nasal spray metoprolol succinate 100 mg 100 mg PO DAILY 08/30/24 03/23/25 tablet,extended release 24 hr Previous Rx's ?Medication ?Instructions ?Recorded Diabetic shoes with 3 inserts #1 ea 04/24/22 insulin lispro 100 unit/mL See Rx Instructions .Route 09/27/23 subcutaneous solution (Humalog .COMPLEX #5 mL U-100 Insulin) mupirocin 2 % topical ointment 1 applic topical TID 2 weeks #22 07/20/24 grams citalopram 40 mg tablet 40 mg PO .@10PM #90 tabs 03/04/25 lamotrigine 200 mg tablet 200 mg PO .DAILY@10AM #90 tabs 03/04/25 prazosin 2 mg capsule See Rx Instructions .Route 03/04/25 .COMPLEX #90 caps prazosin 5 mg capsule See Rx Instructions .Route 03/04/25 .COMPLEX #90 caps quetiapine 100 mg tablet (Seroquel) 100 mg PO BEDTIME #90 tabs 03/16/25 trazodone 300 mg tablet 300 mg PO BEDTIME #90 tabs 04/15/25 Allergies Allergy/AdvReac Type Severity Reaction Status Date / Time promethazine (From Phenergan) Allergy Unknown HARD TO Verified 03/23/25 12:47 BREATH PFSH ED PFSH: Medical History On combination antipsychotic drug therapy Chest pain Psychiatric care Generalized anxiety disorder Post-traumatic stress disorder, chronic Opioid contract exists Encounter for long-term use of opiate analgesic Lumbar back pain Surgical History History of colonoscopy History of elbow surgery History of lumbar fusion History of neck surgery 3x LAP-BAND surgery status Family History Other CAD (coronary artery disease) Cancer Diabetes Hypertension Psychiatric illness Social History Smoking and tobacco/nicotine status: never used tobacco/nicotine Alcohol intake: never Substance/Drug Use: never Physical Exam Const: GENERAL APPEARANCE: cooperative and ill appearing; not frail appearing NUTRITIONAL APPEARANCE: obese HENMT: COMMON NORMALS: normocephalic, atraumatic and Normal external nose present HEAD & SCALP: normocephalic and atraumatic FACE & SINUS: normal facial exam and face symmetric NOSE: Normal external nose present Eye: COMMON NORMALS: Equal, round and reactive pupils present and EOMs intact bilaterally PUPIL: Yes Equal, round and reactive pupils present Neck/C-Spine: GENERAL: Yes trachea midline Chest: CHEST: Yes Symmetrical chest wall rise Resp: COMMON NORMALS: normal respiratory effort, No retractions, No use of accessory muscles and clear to auscultation bilaterally AUSCULTATION: clear to auscultation bilaterally and diminished lung sounds Cardio: COMMON NORMALS: regular rate and regular rhythm RATE: regular rate RHYTHM: regular rhythm GI: COMMON NORMALS: Normal to inspection, nondistended, normoactive bowel sounds present Extremity: COMMON NORMALS: no pedal edema Neuro: JANIYA COMA SCALE: document GCS findings Vadito coma scale eye opening: Spontaneous Vadito coma scale verbal response: Orientated Vadito coma scale motor response: Obey commands Vadito coma scale total score: 15 SENSORY EXAM: Yes extremities (intact) Psych: COMMON NORMALS: speech normal SPEECH: Yes normal speech Skin: COMMON NORMALS: no rashes or lesions noted GENERAL SKIN EXAM: no rashes or lesions noted Course Vital Signs: Vital signs: Vital Signs Temperature 98.1 F 05/08/25 21:56 Pulse Rate 65 05/08/25 21:56 Respiratory Rate 20 H 05/08/25 21:56 Blood Pressure 133/76 05/09/25 02:07 Pulse Oximetry 99 05/09/25 02:07 Oxygen Delivery Me thod Nasal Cannula 05/09/25 02:07 Oxygen Flow Rate 6 05/08/25 23:13 MDM - Dizziness Medical Decision Making Initial vital signs showed a blood pressure of 60s systolic. Sepsis bolus started. This was felt necessary despite the patient's history of CHF given his significant hypotension and weakness on presentation. Blood pressure is up to 81/50 now. Levophed is started. His hemoglobin is 12. Other labs are pending. After fluid infused, pressure is normalized. The patient is off pressors. His blood pressure currently is 133/76. Saturations are 95% on 5 L. ABG shows pH of 7.39, pCO2 of 51 pO2 of 85. Chest x-ray is negative. Head CT is negative. He seemed mildly lethargic. Unintentional opiate overdose was considered in the differential, so the patient was given 1 mg of Narcan. This did not seem to improve his lethargy, but after his blood pressure normalized, he is less lethargic. His creatinine is 2.2 which is a bump 100% over his baseline essentially. His BUN is 32. Sugars in the 250s currently. Initial lactate was 2.1, with repeat at 1.4. His anion gap is normal. We will observe. Continue to monitor his blood pressure. If his blood pressure normalizes, and no other concerns are found, he may go home within 24 hours. Hospitalist has accepted the patient for observation. Lab Data 05/08/25 22:00 05/08/25 22:00 Radiology Impressions Chest X-Ray 05/08/25 22:21 IMPRESSION: No acute findings. Head CT 05/08/25 22:21 IMPRESSION: No acute intracranial abnormality. Laboratory Results WBC 10.15 10^3/uL (3.29-11.43) 05/08/25 22:00 RBC 4.25 10^6/uL (3.85-5.65) 05/08/25 22:00 Hgb 12.00 g/dL (11.27-16.99) 05/08/25 22:00 Hct 38.0 % (37-53) 05/08/25 22:00 MCV 89.4 fl (82-101) 05/08/25 22:00 MCH 28.2 pg (27-33) 05/08/25 22:00 MCHC 31.6 g/dL (30-55) 05/08/25 22:00 RDW 15.9 % (12.1-15.1) H 05/08/25 22:00 Plt Count 317 10^3/cmm (157-399) 05/08/25 22:00 MPV 10.7 fL (7.4-10.4) H 05/08/25 22:00 Neut % (Auto) 69.5 % 05/08/25 22:00 Lymph % (Auto) 23.7 % 05/08/25 22:00 Stephenson % (Auto) 5.0 % 05/08/25 22:00 Eos % (Auto) 0.7 % 05/08/25 22:00 Baso % (Auto) 0.5 % 05/08/25 22:00 Neut # (Auto) 7.05 10^3/uL (1.8-7.7) 05/08/25 22:00 Lymph # (Auto) 2.4 10^3/uL (0.8-4.8) 05/08/25 22:00 Stephenson # (Auto) 0.5 10^3/uL (0.2-0.9) 05/08/25 22:00 Eos # (Auto) 0.1 10^3/uL (0.0-0.8) 05/08/25 22:00 Baso # (Auto) 0.1 10^3/uL (0.0-0.1) 05/08/25 22:00 Nucleated RBC % (auto) 0 % 05/08/25 22:00 Nucleated RBCs # 0.0 /100WBC 05/08/25 22:00 PT 13.20 SECONDS (12.1-14.9) 05/08/25 22:00 INR 0.94 (0.8-1.2) 05/08/25 22:00 APTT 26.1 SECONDS (23.9-36.7) 05/08/25 22:00 Specimen Type Arterial 05/08/25 23:08 Sample Site Radial, left 05/08/25 23:08 ABG pH 7.39 (7.35-7.45) 05/08/25 23:08 ABG pCO2 50.8 mmHg (35-45) H 05/08/25 23:08 ABG pO2 84.5 mmHg (80.0-100.0) 05/08/25 23:08 ABG PO2/FiO2 Ratio 211 05/08/25 23:08 ABG HCO3 30.8 mmol/L (22-26) H 05/08/25 23:08 ABG Base Excess 4.8 mmol/L (-2.0-2.0) H 05/08/25 23:08 Adalberto Test Pos 05/08/25 23:08 Hematocrit 36.8 % (42-52) L 05/08/25 23:08 O2 Delivery Device Nc 05/08/25 23:08 O2 Liters/Min 6.0 % 05/08/25 23:08 FiO2 40.0 % 05/08/25 23:08 Slurry Plant Operator ID [email or web address] 05/08/25 23:08 Sodium 141 mmol/L (136-145) 05/08/25 22:00 Potassium 3.4 mmol/L (3.5-5.1) L 05/08/25 22:00 Chloride 97 mmol/L (98-107) L 05/08/25 22:00 Carbon Dioxide 29 mmol/L (22-29) 05/08/25 22:00 Anion Gap 18.4 (5-19) 05/08/25 22:00 BUN 32 mg/dL (6-20) H 05/08/25 22:00 Creatinine 2.2 mg/dL (0.7-1.2) H 05/08/25 22:00 GFR Calculation 31.3 mL/min (90-130) L 05/08/25 22:00 Glucose 286 mg/dL (65-115) H 05/08/25 22:00 POC Glucose 251 mg/dL (70-110) H 05/08/25 22:28 Calculated Osmolality 309 mOsm/kg (285-295) H 05/08/25 22:00 Lactic Acid 2.1 mmol/L (0.5-2.2) 05/08/25 22:00 Lactic Acid (Sepsis) 1.4 mmol/L (0.5-2.2) 05/09/25 00:55 Calcium 9.0 mg/dL (8.5-10.5) 05/08/25 22:00 Phosphorus 3.8 mg/dL (2.5-4.5) 05/08/25 22:00 Magnesium 2.1 mg/dL (1.7-2.3) 05/08/25 22:00 Total Bilirubin 0.3 mg/dL (0.15-1.2) 05/08/25 22:00 AST 14 U/L (0-40) 05/08/25 22:00 ALT 12 U/L (0-41) 05/08/25 22:00 Alkaline Phosphatase 104 U/L (40-130) 05/08/25 22:00 Troponin T Baseline 21 ng/L (0-15) H 05/08/25 22:00 Troponin T 120 Minute 19.61 ng/L (0-15) H 05/09/25 00:09 Delta Troponin T -1.39 ABS# (0-10) L 05/09/25 00:09 C-Reactive Protein 45.3 mg/L (0.0-4.9) H 05/08/25 22:00 NT-Pro-B Natriuret Pep 46 pg/mL (0-125) 05/08/25 22:00 Total Protein 6.6 g/dL (6.6-8.7) 05/08/25 22:00 Albumin 3.8 g/dL (3.5-5.2) 05/08/25 22:00 Globulin 2.8 g/dL (1.3-4.6) 05/08/25 22:00 Urine Color Yellow (Yellow) 05/09/25 00:19 Urine Appearance Clear (CLEAR) 05/09/25 00:19 Urine pH 6.0 (5-7) 05/09/25:19 Ur Specific Blackwell 1.012 (1.005-1.030) 05/09/25 00:19 Urine Protein Negative (Negative) 05/09/25 00:19 Urine Glucose (UA) 3+ (Normal) H 05/09/25 00:19 Urine Ketones Negative (Negative) 05/09/25: Urine Blood Negative (Negative) 05/09/25: Urine Nitrate Negative (Negative) 05/09/25 00: Urine Bilirubin Negative (Negative) 05/09/25 00: Urine Urobilinogen 0.2 mg/dL (Negative) 05/09/25 00:19 Ur Leukocyte Esterase Trace (Negative) A 05/09/25 00:19 Urine RBC 0-2 /hpf (0-2) 05/09/25 00:19 Urine WBC 11-20 /hpf (0-5) H 05/09/25 00:19 Ur Squamous Epith Cells 0-5 /hpf (0-5) 05/09/25 00:19 Amorphous Sediment Not Reportable 05/09/25 00:19 Urine Bacteria None seen /hpf (NONE) 05/09/25 00:19 Hyaline Casts 1.21 /lpf 05/09/25 00:19 Urine Opiates Screen Negative ng/mL (Negative) 05/09/25 00:19 Ur Barbiturates Screen Negative ng/mL (Negative) 05/09/25 00:19 Ur Phencyclidine Scrn Negative ng/mL (Negative) 05/09/25 00:19 Ur Amphetamines Screen Negative ng/mL (Negative) 05/09/25 00:19 U Benzodiazepines Scrn Negative ng/mL (Negative) 05/09/25 00:19 Urine Cocaine Screen Negative ng/mL (Negative) 05/09/25 00:19 U Marijuana (THC) Screen Negative ng/mL (Negative) 05/09/25 00:19 Blood Type Cancelled 05/08/25 22:33 Rho(D) Type Cancelled 05/08/25 22:33 Antibody Screen Cancelled 05/08/25 22:33 All radiology interpretation(s) finalized by discharge Critical Care Time Critical Care Time: Critical Care Time: Yes Total Critical Care Time: 40 Attestation: This case had a high probability of a clinically significant, sudden, or life threatening deterioration of this patient's condition which required my full and direct attention, intervention and personal management. Time is independent of any procedures performed. Discharge Plan Discharge Patient Disposition: Placed in Observation Clinical Impression: Acute hypotension, TERRANCE (acute kidney injury), Near syncope Coding Level of Care Code ED Endband Sizer for Carito Arreguin
[2025-05-08 22:34] LABS: INR 0.94 (0.8-1.2); Prothrombin Time 13.20 SECONDS (12.1-14.9)
[2025-05-08 22:35] LABS: Partial Thromboplastin Time 26.1 SECONDS (23.9-36.7)
[2025-05-08 22:42] LABS: Lactic Sepsis W/Reflex 2.1 mmol/L (0.5-2.2)
[2025-05-08] MEDS: norepinephrine 4 MG/250 ML BAG 7.5 MG IV (22:42)
[2025-05-08 22:45] LABS: Troponin(5th) Baseline 21 ng/L (0-15)
[2025-05-08 22:55] LABS: Alanine Aminotransferase 12 U/L (0-41); Albumin Level 3.8 g/dL (3.5-5.2); Alkaline Phosphatase 104 U/L (40-130); Anion Gap 18.4 (5-19); Aspartate Amino Transferase 14 U/L (0-40); Blood Urea Nitrogen 32 mg/dL (6-20); Calcium 9.0 mg/dL (8.5-10.5); Carbon Dioxide 29 mmol/L (22-29); Chloride 97 mmol/L (98-107); Creatinine Clr Calc Pharmacy 53.2525; Globulin 2.8 g/dL (1.3-4.6); Glucose 286 mg/dL (65-115); Magnesium 2.1 mg/dL (1.7-2.3); NT Pro B Type Natriuretic Pept 46 pg/mL (0-125); Osmolality Calculated 309 mOsm/kg (285-295); Potassium 3.4 mmol/L (3.5-5.1); Sodium 141 mmol/L (136-145); Total Protein 6.6 g/dL (6.6-8.7)
[2025-05-08] MEDS: norepinephrine 4 MG/250 ML BAG 15 MG IV (23:00)
[2025-05-08 23:13] VITALS: BP 127/72; O2SAT 97
[2025-05-08 23:20] LABS: ABG PCO2 50.8 mmHg (35-45); ABG PH Result 7.39 (7.35-7.45); Arterial Blood Gas Hematocrit 36.8 % (42-52); Blood Gas Allen Test Pos; Blood Gas LPM 6.0 %; Blood Gas Operator Identificat gerca; Blood Gas Sample Site Radial, left; Blood Gas Sample Type Arterial; HCO3 ABG 30.8 mmol/L (22-26); PO2 ABG 84.5 mmHg (80.0-100.0); PO2 FiO2 Ratio Arterial Blood 211
[2025-05-09] VITALS (34 sets, daily range): BP systolic 114–197; BP diastolic 44–112; PULSE 56–68; RESP 11–24; TEMP 36.2–37.2; O2SAT 85–100; BMI 47.7
[2025-05-09 00:13] LABS: Reflex Lactate Order REFLEX LACTIC ORDERD
[2025-05-09 00:38] LABS: Glucose Urine UA 3+ (Normal); Nitrate Urine Negative (Negative); Specific Gravity, Urine 1.012 (1.005-1.030)
[2025-05-09 00:43] LABS: Add Urine Microscopic? YES
[2025-05-09 00:46] LABS: Troponin 5 2HR 19.61 ng/L (0-15)
[2025-05-09 00:47] LABS: PCP Screen Urine Negative (Negative)
[2025-05-09 01:02] LABS: Troponin 5 2HR Delta -1.39 ABS# (0-10)
[2025-05-09 02:02] LABS: Lactic Acid level (Lactate) 1.4 mmol/L (0.5-2.2)
--- NOTE | 2025-05-09 02:17 | PM.HP ---
Providers/Chief Complaint Admitting Physician: JANET URIBE DO -admitted after 12 midnight Primary Care Provider: Agustina Whiting DO Chief Complaint: DIZZY History of Present Illness Sergei Lucas is a 54 year old male with medical history significant for diabetes hypertension obstructive sleep apnea who had presented to the emergency room early hours of this morning following a near syncopal event at home for further optimization and evaluation of his presentation. Patient had gotten up on this day which would have been delayed her hours of yesterday mowed the lawn, went to grocery and bought some things and then came home patient felt very thirsty and went to the fridge to get something to drink and was almost passing out and tried to sit down made it well to sit down without falling. Patient checked the blood sugar it was over 400 he gave himself a high dose insulin at that point he called for EMS to get him to the hospital for further care at the emergency room serum Accu-Chek was in the 200s so it is the Accu-Chek. Blood pressure was systolic of 64. Patient was given fluid boluses and at this point patient cannot be discharged because of the presentation of blood pressure of systolic at 64 patient had normal lactate no chest pain no shortness of breath no troponin as delta troponin was negative chest x-ray did not show acute process no pneumonia Patient responded to IV fluid no pressor given though 1 was ordered as a standby patient blood pressure came up to 141/75 patient had no confusion the whole presentation was puzzling. Patient had no fever I believe that this patient had acute hyperglycemia in the 400s that had actually dehydrated him he did not have much of any fluid in him when he took a high dose insulin at home that caused a very rapid shift of glucose and electrolytes and cause him to be further hypotensive at 64 at his presentation to the emergency room. Patient had no sign of infection patient at this time is being admitted to stepdown unit under observation if patient continues to do well patient should be able to go home today Review of Systems Narrative: System review upon 10 organ review unremarkable except for critically cut down in half from 400s to 200s blood sugar initial. Of time using home insulin by the patient at home Medications/Allergies Home Medications ?Medication ?Instructions ?Recorded ?Confirmed ?Last Taken ?Type pregabalin 200 mg capsule (Lyrica) 200 mg PO Q12H 09/15/19 03/23/25 08/29/24 History insulin human U-100 NPH-regulr 80 unit SUBCUT BID 06/20/20 03/23/25 08/29/24 History 70-30 mix 100 unit/mL subcutaneous susp (Humulin 70/30 U-100 Insulin) Held on 09/27/23. Instructions: see pcp montelukast 10 mg tablet 10 mg PO DAILY 07/24/21 03/23/25 08/29/24 History Diabetic shoes with 3 inserts #1 ea 04/24/22 03/23/25 Unknown Rx albuterol sulfate 90 mcg/actuation 2 puff inhalation .Q4-6H PRN 05/01/22 03/23/25 08/29/24 History aerosol inhaler Shortness Of Breath cetirizine 10 mg tablet (Zyrtec) 10 mg PO DAILY 05/01/22 03/23/25 08/29/24 History diphenhydramine HCl 25 mg tablet 25 mg PO BID PRN Allergy Symptoms 05/01/22 03/23/25 Unknown History (Benadryl Allergy) oxymetazoline 0.05 % nasal spray 2 spray intranasal Q12H PRN Nasal 05/01/22 03/23/25 Unknown History (Nasal [place] (oxymetazoline)) Congestion atorvastatin 40 mg tablet 40 mg PO DAILY 10/31/22 03/23/25 08/29/24 History dapagliflozin propanediol 10 mg 10 mg PO DAILY 09/24/23 03/23/25 08/29/24 History tablet (Farxiga) hydrocodone 5 mg-acetaminophen 325 1 tab PO .Q4-6H PRN Pain 09/24/23 03/23/25 08/29/24 History mg tablet pantoprazole 40 mg tablet,delayed 40 mg PO BID 09/24/23 03/23/25 08/29/24 History release insulin lispro 100 unit/mL See Rx Instructions .Route 09/27/23 03/23/25 08/29/24 Rx subcutaneous solution (Humalog .COMPLEX #5 mL U-100 Insulin) furosemide 40 mg tablet 80 mg PO BID 07/20/24 03/23/25 08/29/24 History mupirocin 2 % topical ointment 1 applic topical TID 2 weeks #22 07/20/24 03/23/25 08/29/24 Rx grams potassium chloride 20 mEq 20 meq PO DAILY 07/20/24 03/23/25 08/29/24 History tablet,extended release(part/cryst) fluticasone propionate 50 2 spray intranasal DAILY 08/30/24 03/23/25 08/29/24 History mcg/actuation nasal spray,suspension ipratropium bromide 42 mcg (0.06 1 spray intranasal DAILY 08/30/24 03/23/25 08/29/24 History %) nasal spray metoprolol succinate 100 mg 100 mg PO DAILY 08/30/24 03/23/25 08/29/24 History tablet,extended release 24 hr citalopram 40 mg tablet 40 mg PO .@10PM #90 tabs 03/04/25 03/23/25 Unknown Rx lamotrigine 200 mg tablet 200 mg PO .DAILY@10AM #90 tabs 03/04/25 03/23/25 Unknown Rx prazosin 2 mg capsule See Rx Instructions .Route 03/04/25 03/23/25 Unknown Rx .COMPLEX #90 caps prazosin 5 mg capsule See Rx Instructions .Route 03/04/25 03/23/25 Unknown Rx .COMPLEX #90 caps quetiapine 100 mg tablet (Seroquel) 100 mg PO BEDTIME #90 tabs 03/16/25 03/23/25 Unknown Rx trazodone 300 mg tablet 300 mg PO BEDTIME #90 tabs 04/15/25 Unknown Rx Allergies Allergy/AdvReac Type Severity Reaction Status Date / Time promethazine (From Phenergan) Allergy Unknown HARD TO Verified 03/23/25 12:47 BREATH PFSH Acute PFSH: Medical History On combination antipsychotic drug therapy Chest pain Psychiatric care Generalized anxiety disorder Post-traumatic stress disorder, chronic Opioid contract exists Encounter for long-term use of opiate analgesic Lumbar back pain Surgical History History of colonoscopy History of elbow surgery History of lumbar fusion History of neck surgery 3x LAP-BAND surgery status Family History Other CAD (coronary artery disease) Cancer Diabetes Hypertension Psychiatric illness Social History Smoking and tobacco/nicotine status: never used tobacco/nicotine Alcohol intake: never Substance/Drug Use: never Vitals/I&O/Wt Last Vital Signs Temp 98.1 F 05/08/25 21:56 Pulse 65 05/08/25 21:56 Resp 20 H 05/08/25 21:56 BP 133/76 05/09/25 02:07 Pulse Ox 99 05/09/25 02:07 O2 Del Method Nasal Cannula 05/09/25 02:07 O2 Flow Rate 6 05/08/25 23:13 05/08/25 05/08/25 05/09/25 14:59 22:59 06:59 Intake Total 1.5 / 1.5 1.5 / 3.0 Balance 1.5 / 1.5 1.5 / 3.0 Weight last 48 hrs Weight 142.609 kg Physical Exam Narrative: General the patient is in no apparent distress HEENT normocephalic atraumatic neck neck is supple cardiovascular heart rate is regular lungs are pretty much clear abdomen soft nontender nondistended unremarkable extremities are intact no edema has good pulses neurology has no focality lab studies lab studies reviewed and noted. Data 05/09/25 04:00 05/09/25 04:00 Micro: Microbiology 05/08/25 22:35 Blood Culture - Preliminary Blood SPECIMEN COLLECTED 05/08/25 22:33 Blood Culture - Preliminary Blood SPECIMEN COLLECTED A&P Assessment and plan 1. Near syncope: 2. TERRANCE (acute kidney injury): 3. Acute hypotension: 4. Hyperglycemia: Plan: Hypotension status post injection of high-dose insulin for a hyperglycemia with quick correction - Patient got near syncopal because of quick correction of high serum glucose at home with a dramatic shift - Patient blood pressure systolic of 64 was optimized with IV hydration - Continue gentle hydration - Hypotension resolved from is 64 systolic at presentation to 141/75 Near syncopal event - Patient with cellulitis dehydration from high blood sugar in the 400s - As patient had been rehydrated this event went away - Will continue to follow through and optimize - I will obtain echocardiogram follow-up result Acute renal failure creatinine at 2.2 at presentation - Improved this morning to 1.9 - Continue gentle hydration - Patient creatinine would improve by the end of the day - Recheck serum creatinine at noon and then at 4 PM today GI and DVT prophylaxis in place - Follow through with care and optimize Dehydration - Will continue to monitor and optimize PDMP PDMP Reviewed: Not Reviewed Attestations Medical Necessity Statement*: Patient is under observation and should be allowed 23 hours stay prior to discharge for acute renal failure hypotension and near syncopal Coding Level of Care Code 02051 Diagnoses Near syncope R55 TERRANCE (acute kidney injury) N17.9 Acute hypotension I95.9 Hyperglycemia R73.9
[2025-05-09] MEDS: heparin 5,000 unit/mL INJ 1 mL 5000 UNIT SUBCUT ×2 (04:05→14:24)
[2025-05-09 04:13] LABS: Hematocrit 39.2 % (37-53); Hemoglobin 11.90 g/dL (11.27-16.99); Mean Corpuscular HGB Conc 30.4 g/dL (30-55); Mean Corpuscular Hemoglobin 27.9 pg (27-33); Mean Corpuscular Volume 91.8 fl (82-101); Nucleated Red Blood Cells % 0 %; Platelet Count 244 10^3/cmm (157-399); Red Blood Count 4.27 10^6/uL (3.85-5.65); White Blood Count 9.91 10^3/uL (3.29-11.43)
[2025-05-09 04:25] LABS: Troponin 5 6HR 18.53 ng/L (0-15); Troponin 5 6HR Delta -2.47 ng/L (0-12)
[2025-05-09 04:32] LABS: Alanine Aminotransferase 11 U/L (0-41); Albumin Level 3.7 g/dL (3.5-5.2); Alkaline Phosphatase 107 U/L (40-130); Anion Gap 18.5 (5-19); Aspartate Amino Transferase 14 U/L (0-40); Blood Urea Nitrogen 31 mg/dL (6-20); Calcium 8.4 mg/dL (8.5-10.5); Carbon Dioxide 27 mmol/L (22-29); Chloride 105 mmol/L (98-107); Creatinine Clr Calc Pharmacy 61.6607; Globulin 2.3 g/dL (1.3-4.6); Glucose 121 mg/dL (65-115); Magnesium 2.0 mg/dL (1.7-2.3); Osmolality Calculated 312 mOsm/kg (285-295); Potassium 3.5 mmol/L (3.5-5.1); Sodium 147 mmol/L (136-145); Total Protein 6.0 g/dL (6.6-8.7)
[2025-05-09 04:38] LABS: Estmated Average Glucose 189; Hemoglobin A1C 8.2 % (4.0-6.0)
--- NOTE | 2025-05-09 06:16 | PC.NURSE ---
Spoke directly with admitting physician and ER physician about patient's need for repeat ABG and CPAP machine. RT was contacted for these orders. RT came to patient bedside and I reiterated these orders face to face with RT. At 0600 these orders have still not been fulfilled. Patient is alert and not in respiratory distress. ERP Santana aware that RT did not bring a CPAP machine and that patient is alert.
--- NOTE | 2025-05-09 07:23 | USCV_ITS ---
Sergei Age: 54 Gender: M : 1970 Exam Date: 05/09/2025 09:31 Ordering Phys: Janet Pittman MD Technologist: Lucian Ruff [place]am [place] [facility] [place]: near syncopal event BP: 117 / 65 HR: 59 Rhythm: Sinus Technical Quality: Adequate MEASUREMENTS (Male / Female) Normal Values 2D ECHO LV Diastolic Diameter PLAX 4.6 cm 4.2 - 5.9 / 3.9 - 5.3 cm IVS Diastolic Thickness 1.1 cm 0.6 - 1.0 / 0.6 - 0.9 cm IVS Systolic Thickness 1.3 cm LVPW Diastolic Thickness 1.0 cm 0.6 - 1.0 / 0.6 - 0.9 cm LVPW Systolic Thickness 1.6 cm LVOT Diameter 2.0 cm LV Ejection Fraction 2D Teich 66.9 % LV Ejection Fraction MOD 4C 76.9 % LV Ejection Fraction MOD 2C 82.6 % LV Ejection Fraction 2C AL 81.9 % LA Diameter 3.4 cm RA Systolic Volume 4C AL 37.5 ml RA Systolic Volume 4C MOD 36.2 ml LA Sys Volume AL 51.1 cm cubed LA Sys Volume Index AL 18.9 cm cubed/m squared Aorta at Sinotubular Diameter 2.4 cm IVC Diameter 1.5 cm M-MODE LA Ao Ratio MM 1.2 MV E Point Septal Separation 1.2 cm AV Cusp Separation MM 1.6 cm DOPPLER AV Peak Velocity 238.7 cm/s LVOT Peak Velocity 146.0 cm/s AV Area Cont Eq vti 2.1 cm squared AV Area Cont Eq pk 2.0 cm squared MV Peak Velocity 138.0 cm/s MV Area PHT 7.4 cm squared Mitral E to A Ratio 1.2 TV Peak Velocity 144.0 cm/s TR Peak Velocity 162.0 cm/s TR Peak Gradient 10.5 mmHg TR Mean Velocity 135.0 cm/s TR Mean Gradient 7.6 mmHg TR Velocity Time Integral 37.7 cm PV Peak Velocity 146.0 cm/s RV Ejection Time 0.3 s FINDINGS Left Ventricle Normal left ventricular size, systolic function and wall thickness, with no regional wall motion abnormalities. Left ventricular ejection fraction is estimated at 60 %. Normal diastolic function. Right Ventricle Normal right ventricular size and systolic function. Right Atrium Normal right atrial size. Left Atrium Normal left atrial size. IA Septum Normal appearance of the interatrial septum. Mitral Valve Normal mitral valve structure. No mitral valve stenosis or regurgitation. Aortic Valve Moderate aortic valve calcification. No aortic valve stenosis. Trace aortic valve regurgitation. Tricuspid Valve Normal tricuspid valve structure. No tricuspid valve stenosis or regurgitation. Normal pulmonary pressure. Pulmonic Valve Normal pulmonic valve structure. No pulmonic valve stenosis or regurgitation. Pericardium No pericardial effusion. Aorta Normal diameter of the aortic root and ascending thoracic aorta. IVC Normal IVC diameter. CONCLUSIONS Normal left ventricular size, systolic function and wall thickness, with no regional wall motion abnormalities. Left ventricular ejection fraction is estimated at 60 %. Normal diastolic function. There is no pericardial effusion. No significant valvular abnormalities. Right atrial pressure is around 5 mm of mercury. Brandie Buenrostro MD (Electronically Signed) Final Date: 09 May 2025 17:43 S
--- NOTE | 2025-05-09 07:48 | ECG_ITS ---
[facility] Test Date: 2025-05-09 Pat Name: Sergei Lucas Department: Room: EDIP Gender: Male Daily Sales Audit Clerk: : 1970 Requested By: Remy Hirsch Order Number: [id number] Reading MD: CRISTIAN HENRY Measurements Intervals [place] Rate: 59 P: 35 VA: 156 QRS: 20 QRSD: 93 T: 29 QT: 438 QTc: 437 Interpretive Statements SINUS BRADYCARDIA ANTEROSEPTAL MYOCARDIAL INFARCTION , PROBABLY OLD [40+ ms Q WAVE IN V1-V4] Compared to ECG 05/08/2025 21:59:45 Sinus rhythm no longer present Myocardial infarct finding still present Electronically Signed On 05-09-2025 22:28:51 CDT by CRISTIAN HENRY [email or web address]
[2025-05-09] MEDS: perflutren protein-a microsphr 0.22 mg/mL SDV 3 mL IV (10:18)
--- OUTSIDE RECORDS SUMMARY | 2025-05-09 13:37 | XMS_ITS | Encounter Summary ---
Author Organization [facility] Address [address] [place] [address] Care Team Providers Care Comedian Name Role Phone Agustina Whiting Primary Care Provider +1- [phone] Encounter Details Date Type Department Care Team (Late st Contact Info) Description 03/09/2025 Results Follow-Up [facility] Family Medicine [place] [address] [place] [address] October, QUANTITY SURVEYOR [address] [place] [address] XR KNEE 3 VW LEFT, [...] AM CDT Legal Sex Male 8:20 AM C 40A CREW CHIEF Gender Identity Male 04/09/2024 9:07 AM CDT Sexual Orientation Straight 04/09/2024 9: 07 AM CDT documented as of this encounter Plan of Treatment Upcoming Encounters Date Type Department Care Team (Late st Contact Info) Description 06/16/2025 4:00 PM C 40A CREW CHIEF Office Visit [facility] Medicine [place] [address] [place] [address] Agustina Whiting DO [address] [place] [address] 06/23/2025 1:10 PM C 40A CREW CHIEF Office Visit [facility] Op[facility] [place] [address] [place] [address] [place] [phone] Latonia Clark MD [address] [place] [phone] documented as of this encounter Visit Diagnoses Not on filedocumented in this encounter Additional Health Concerns Assessment Noted Time PHQ-9 Depression Total Score: 2 08/26/19 25 11:06 AM C 40A CREW CHIEF documented as of this encounter Care Teams Comedian Relationship Specialty Start Date End Date Agustina Whiting DO [address] [place] [address] PCP - General Family Practice 06/09/19 documented as of this encounter
--- OUTSIDE RECORDS SUMMARY | 2025-05-09 13:37 | XMS_ITS | Encounter Summary ---
Author Organization [facility] Address [address] [place] [address] Care Team Providers Care Clinical Assoc Name Role Phone Agustina Whiting DO Primary Care Provider +1- [phone] Encounter Details Date Type Department Care Team (Latest Contact Info) Description 10/14/2001 Outpatient Historical [facility] Ortiz Hardwick MD [address] [place] [address] IRRITABLE COLON (Primary Dx); ANXIETY STATE NOS Social History Tobacco Use Types Packs/Day Years Used Date Smoking Tobacco: Never Assessed Sex and Gender Information Value Date Recorded Sex Assigned at Not on file Legal Sex Male 4:38 AM PARTICIPANT ADMINISTRATOR Gender Identity Not on file Sexual Orientation [...] documented as of this encounter Care Teams Clinical Assoc Relationship Specialty Start Date End Date Agustina Whiting DO [address] [place] [address] PCP - General Family Practice 06/09/19 documented as of this encounter
--- OUTSIDE RECORDS SUMMARY | 2025-05-09 13:37 | XMS_ITS | Encounter Summary ---
Author Organization [facility] Address [address] [place] [address] Care Team Providers Care Electrophysiologist Name Role Phone Agustina Whiting DO Primary Care Provider +1- [phone] Encounter Details Date Type Department Care Team (Latest Contact Info) Description 11/07/2001 Outpatient Historical [facility] Ortiz Hardwick MD [address] [place] [phone] BRONCHITIS NOS (Primary Dx) Social History Tobacco Use Types Packs/Day Years Used Date Smoking Tobacco: Never Assessed Sex and Gender Information Value Date Recorded Sex Assigned at Not on file Legal Sex Male 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
--- OUTSIDE RECORDS SUMMARY | 2025-05-09 13:37 | XMS_ITS | Encounter Summary ---
Author Organization [facility] Address [address] [place] [address] Care Team Providers Care Nut Feeder Name Role Phone Agustina Whiting Primary Care Provider +1- [phone] Encounter Details Date Type Department Care Team (Latest Contact Info) Description 03/08/2025 Results Follow-Up [facility] Family Medicine [place] [address] [place] [address] October, JAVA PROGRAMMER [address] [place] [address] HEMOGLOBIN A1C, CBC WITH DIFFERENTIAL, [...] AM CDT Legal Sex Male 8:20 AM TELEPHONE ANSWERING SERVICE OPERATOR Gender Identity Male 04/09/2024 9:07 AM CDT Sexual Orientation Straight 04/09/2024 9: 07 AM CDT documented as of this encounter Plan of Treatment Upcoming Encounters Date Type Department Care Team (Late st Contact Info) Description 06/16/2025 4:00 PM TELEPHONE ANSWERING SERVICE OPERATOR Office Visit [facility] Medicine [place] [address] [place] [address] Agustina Whiting DO [address] [place] [address] 06/23/2025 1:10 PM TELEPHONE ANSWERING SERVICE OPERATOR Office Visit [facility] Ophthalmology [place] [address] [place] [address] [place] [address] [place] [phone] Latonia Clark MD [address] [place] [phone] documented as of this encounter Visit Diagnoses Not on filedocumented in this encounter Additional Health Concerns Assessment Noted Time PHQ-9 Depression Total Score: 2 08/26/19 25 11:06 AM TELEPHONE ANSWERING SERVICE OPERATOR documented as of this encounter Care Teams Nut Feeder Relationship Specialty Start Date End Date Agustina Whiting DO [address] [place] [address] PCP - General Family Practice 06/09/19 documented as of this encounter
--- OUTSIDE RECORDS SUMMARY | 2025-05-09 13:37 | XMS_ITS | Clinical Summary ---
Author Organization [facility] Address [address] [place] [address] Phone Care Team Providers Care Upset Operator Name Role Phone Agustina Whiting DO Primary Care Provider Allergies Active Allergy Reactions Criticality Noted Date Comments Alpha-Gal (Jaypgpcig-Jhhar-0,3-Galacto se) Unknown 07/04/2020 Has chronic joint pain [...] (LOTRISONE) 1-0.05 % Cream 09/30/19 20 Active [place] 5-325 mg tablet 11/03/19 20 Active LaMICtaL [...] mouth daily. Active naloxone (NARCAN) 4 mg/spray [place], Non-AerosolIndic ations:jail (current) use of opiate analgesic EMERGENCY USE [...] 05/05/20 Active budesonide (RHINOCORT AQUA) 32 mcg/actuation [place], Non-AerosolIndic ations:Chronic pansinusitis Administer 2 Sprays in [...] 07/18/19 Active fluticasone propionate (FLONASE) 50 mcg/spray [place], Suspension nasal inhaler Administer 2 Sprays in each nostril daily. 16 Gram 07/25/19 Active cyclobenzaprine (FLEXERIL) 10 mg tablet Take 1 Tablet (10 mg) by mouth 3 times daily as needed for Spasm. 90 Tablet 1 08/10/19 Active Insulin Syringe-Needle U-100 (TRUEplus Insulin) 1 mL 29 gauge x 1/2 Syringe USE FOUR TIMES DAILY WITH INSULIN. 200 Each 08/25/19 Active Insulin Tolar, Disposable, 32 gauge x 5/16 NeedleIndication s:Type 2 diabetes mellitus with foot ulcer, with long-term current use of insulin Use with Novolin BID 100 Each 08/25/19 Active prazosin (MINIPRESS) 1 mg capsule Take 1 Capsule (1 mg) by mouth daily at bedtime. [facility] 09/21/19 Active traZODone (DESYREL) 50 mg tablet Take 1 Tablet (50 mg) by mouth daily at bedtime. [facility] pt not sure of the dose. 90 Tablet 3 09/21/19 Active pregabalin (LYRICA) 150 mg CapsuleIndicatio ns:Polyneuropath y associated with underlying disease Take 1 Capsule (150 mg) by mouth every 12 hours. [facility] 180 Capsule 1 10/12/19 Active methotrexate [...] on file Legal Sex Male 4:38 AM PETROLEUM ENGINEER Gender Identity Not on file Sexual Orientation [...] RATIO, RANDOM UR Routine 06/13/2020 8:51 AM PETROLEUM ENGINEER Type 2 diabetes mellitus with foot ulcer, with long-term current use of insulin ([facility]) HEMOGLOBIN A1C Routine 06/13/2020 8:51 AM PETROLEUM ENGINEER Type 2 diabetes mellitus with foot ulcer, with long-term current use of insulin ([facility]) LIPID PANEL Routine 03/08/2020 4:31 PM CDT Type 2 diabetes mellitus with proliferative retinopathy of right eye, with long-term current use of insulin, macular edema presence unspecified, unspecified proliferative retinopathy type ([facility]) from Last 3 Months or Most Recently Relevant to Health Maintenance Results * (ABNORMAL) MICROALBUMIN/CREATININE RATIO, RANDOM UR (06/13/2020 8:51 AM PETROLEUM ENGINEER) MICROALBUMIN, URINE 34.6 No Reference Range mg/dL 06/14/2020 7:55 AM [facility] CREATININE, URINE 79.0 40.0 - 278.0 mg/dL 06/14/2020 7:55 AM [facility] Comment:Reference Range vari es with fluid intake and diet. MICROALBUMIN/ CREAT RATIO, UR 438.0(H) <17.0 mg/g 06/14/2020 7:55 AM [facility] Urine URINE SPECIMEN OBTAINED BY CLEAN CATCH PROCEDURE / Unknown Collection / Unknown 06/13/2020 8:51 AM PETROLEUM ENGINEER 06/13/2020 8:21 PM [facility] - 06/14/2020 7:55 AM PETROLEUM ENGINEER Condition Microalbumin/Creat ratio Normal Males <17 Normal Females <25 Microalbuminuria Males 17-299 Microalbuminuria Females 25-299 Overt proteinuria >=300 Vonnie Sims HISTORICAL INTERPRETER URINE ORDERABLES Final Result [facility] IA# [id number] [address] [place] [address] * (ABNORMAL) HEMOGLOBIN A1C (06/13/2020 8:[address] [facility]) HEMOGLOBIN A1C 7.3(H) See Comment % 06/14/2020 7:40 AM [facility] EST. AVG GLUCOSE, A1C 163 mg/dL 06/14/2020 7:40 AM [facility] Blood Venipuncture / Unknown 06/13/2020 8:51 AM PETROLEUM ENGINEER 06/13/2020 8:26 PM [facility] - 06/14/2020 7:40 AM PETROLEUM ENGINEER HGB A1C INTERPRETATION NORMAL: <5.7% PRE-DIABETES: 5.7 - 6.4% DIABETES: 6.5% OR GREATER Falsely low A1C measurements can occur when: 1. Anemia and/or hemolytic anemia is present. 2. Hemoglobin variants present. 3. Renal failure. 4. Transfusion of blood product in the last 120 days. We recommend ordering a fructosamine test([id number]) to more accurately assess glycemic status if any of the above conditions are present. Vonnie Sims HISTORICAL INTERPRETER CHEMISTRY ORDERABLES Final Re sult [facility] CLIA# [id number] [address] [place] [address] * (ABNORMAL) LIPID PANEL (03/08/2020 4:31 PM CDT) CHOLESTEROL 207(H) <200 mg/dL 03/08/2020 9:13 PM CDT [facility] TRIGLYCERIDE 128 <150 mg/dL 03/08/2020 9:13 PM CDT [facility] HDL 72(H) 40 - 59 mg/dL 03/08/2020 9:13 PM CDT [facility] LDL CALCULATED 109(H) <100 mg/dL 03/08/2020 9:13 PM CDT [facility] NON-HDL CHOLESTEROL 135(H) <130 mg/dL 03/08/2020 9:13 PM CDT [facility] Blood Venipuncture / Unknown 03/08/2020 4:31 PM CDT 03/08/2020 8:04 PM CDT Narrative [facility] - 03/08/2020 9:13 PM [...] for Lipid Panels (NCEP/AMA) . Selin Salgado [facility] CHEMISTRY ORDERABLES [facility] al Result [facility] CLIA# [id number] [address] [place] [address] from Last 3 Months or Most Recently Relevant to Health Maintenance Insurance HEALTHCARE MEDICARE [employer] MEDICARE [place] Advance Directives For more information, please contact: [phone] * Full Code (Latest Code Status on File) Date Activated Date Inactivated Comments 03/22/2019 8:05 AM 03/24/2019 5:37 PM Care Teams Upset Operator Relationship Specialty Start Date End Date Agustina Whiting DO [address] [place] [address] PCP - General Family Practice 06/09/19
--- OUTSIDE RECORDS SUMMARY | 2025-05-09 13:37 | XMS_ITS | Patient Health Record ---
Author Organization [facility] Address [address] [place] [address] Care Team Providers Care Medical Assistant Internal Medicine Name Role Phone Agustina Whiting DO Primary Care Provider Estela PlasenciaNatalie Unavailable [phone] Berto Geena Unavailable Allergies Allergen (clinical drug ingredient) Drug/Non Drug Allergy documented on EMR Reaction Allergy Type Onset Date Status promethazine Promethazine anaphylaxis Drug Allergy Active Results Component Value Reference Range Flag Notes Tox Results Reviewed date:02/26/2025 02:50:21 PM Interpretation: Performing Lab: Notes/Report: Urine Drug Screen (cup read) - [id number] Reviewed date:02/09/2025 11:16:36 AM Interpretation: Performing Lab: Notes/Report: OPI + Urine Confirmation Panel (in strument) - [id number] Reviewed date:02/26/2025 10:00:32 AM Interpretation: Performing Lab: [...] the U.S. Food and Drug Administration. Pregabalin >70124 <225 ng/mL > This test was developed [...] Administration. Urine Drug Screen (cup read) - [id number] Reviewed date:04/08/2025 09:43:58 AM Interpretation: Performing Lab: Notes/Report: OPI + Reason For Referral Reason eval and treat Diagnosis 1 Chronic pain syndrom e (G89.4) Referring Provider First Name Agustina Referring Provider Last Name Johanne Referring Provider Speciality Family Med icine Referred Organization [facility] Referred Provider Waldo Frye Referred Address [address] [facility],[address] Referred Provider Specialty Intervention al Pain Medicine [...] Status Risk Notes Problem Chronic pain syndrome (142475292) Chronic pain syndrome (G89.4) Active confirmed Problem Myalgia of auxiliary muscles, head and neck (M79.12) Active confirmed Problem Cervical radiculopathy (64332749) Cervical radiculopathy (M54.12) Active confirmed Problem Neuropathy (259242467) Neuropathy (G62.9) Active confirmed Problem Lumbosacral spondylosis without myelopathy (78790520) Spondylosis of lumbosacral region without myelopathy or radiculopathy (M47.817) Active confirmed Problem Cervical spondylosis (896802890) Cervical spondylosis (M47.812) Active confirmed Problem Myalgia (09873445) Myalgia (M79.10) Active confirmed Problem Tobacco dependence (98681141) Tobacco dependence (F17.200) Active confirmed Problem Lumbosacral spondylosis without myelopathy (61333192) Lumbosacral radiculopathy due to degenerative joint disease of spine (M47.27) Active confirmed Problem Lumbosacral radiculopathy (5781682) Lumbosacral radiculopathy (M54.17) Active confirmed Problem Lumbar post-laminectomy syndrome (081715130) Lumbar post-laminectomy syndrome (M96.1) Active confirmed Vital Signs Weight-kg 107.05 kg 04/08/2025 Weight 236 lbs 04/08/2025 Encounters Encounter Location Date Provider Diagnosis [facility] [place] [address] [place] [address] 02/09/2025 Geena Barnett e Chronic pain syndrome G89.4 ; Lumbosacral radiculopathy due to degenerative joint disease of spine M47.27 ; Myalgia M79.10 ; Cervical spondylosis M47.812 ; Myalgia of auxiliary muscles, head and neck M79.12 ; Lumbar post-laminectomy syndrome M96.1 ; Neuropathy G62.9 ; extermination inspector (current) use of opiate analgesic Z79.891 ; Tobacco dependence F17.200 ; Spondylosis of lumbosacral region without myelopathy or radiculopathy M47.817 and Lumbosacral radiculopathy M54.17 [facility] [place] [address] [place] [address] 03/09/2025 Geena Barnett e Chronic pain syndrome G89.4 ; Lumbosacral radiculopathy due to degenerative joint disease of spine M47.27 ; Myalgia M79.10 ; Cervical spondylosis M47.812 ; Myalgia of auxiliary muscles, head and neck M79.12 ; Lumbar post-laminectomy syndrome M96.1 ; Neuropathy G62.9 ; assisted (current) use of opiate analgesic Z79.891 ; Tobacco dependence F17.200 ; Spondylosis of lumbosacral region without myelopathy or radiculopathy M47.817 and Lumbosacral radiculopathy M54.17 [facility] [place] [address] [place] [address] 04/08/2025 Natalie Plasencia Chronic pain syndrome G89.4 ; Lumbosacral radiculopathy due to degenerative joint disease of spine M47.27 ; Myalgia M79.10 ; Cervical spondylosis M47.812 ; Myalgia of auxiliary muscles, head and neck M79.12 ; Lumbar post-laminectomy syndrome M96.1 ; Neuropathy G62.9 ; assisted (current) use of opiate analgesic Z79.891 and Tobacco dependence F17.200 [facility] Pedro Pablo [address] [facility] [place] [address] 02/18/2025 Geena Barnett e Chronic pain syndrome G89.4 [facility] [place] [address] [place] [address] 04/08/2025 Geena Barnett e Lumbosacral radiculopathy M54.17 ; Myalgia M79.10 and Neuropathy G62.9 Assessments Encounter Date Diagnosis (ICD Code) Assessment Notes Treatment Notes Treatment Clinical Notes Section Notes 03/09/2025 Chronic pain syndrome (ICD-10 - G89.4) Mr. Lucas is a very pleasant gentleman with cervical post laminectomy and lumbar post laminectomy syndrome. We ordered C Spine X-Rays,however, we were unable to obtain those records. We will try getting those again.We reviewed his L Spine records with him. Additionally, he did not potato picker his last prescription. It looks like it was sent on our end to [facility]. They did not call us. We will continue his Bellflower at 75 tablets, Lyrica at 200 mg [...] ADLs, denies abuse and side effects. The PHOTOGRAPHIC PROCESS WORKER was reviewed with no untoward events noted. UDS reviewed and is as expected. A bowel regimen was discussed with the patient. 04/08/2025 Lumbosacral radiculopathy (ICD-10 - M54.17) 02/09/2025 Chronic pain syndrome (ICD-10 - G89.4) [...] disease of spine (ICD-10 - M47.27) 04/08/2025 Chronic pain syndrome (ICD-10 - G89.4) [...] effects are noted. Last UDS and AR PHOTOGRAPHIC PROCESS WORKER reviewed today. Patient is advised that best [...] joint disease of spine (ICD-10 - M47.27) 02/18/2025 Chronic pain syndrome (ICD-10 - G89.4) 04/08/2025 Myalgia (ICD-10 - M79.10) 02/09/2025 Myalgia (ICD-10 - M79.10) 04/08/2025 Myalgia (ICD-10 - M79.10) 03/09/2025 Lumbosacral radiculopathy due to degenerative joint disease of spine (ICD-10 - M47.27) 03/09/2025 Myalgia (ICD-10 - M79.10) 04/08/2025 Neuropathy (ICD-10 - G62.9) 02/09/2025 Cervical spondylosis (ICD-10 - M47.812) 04/08/2025 Cervical spondylosis (ICD-10 - M47.812) 04/08/2025 Myalgia of auxiliary muscles, head and neck (ICD-10 - M79.12) 03/09/2025 Cervical spondylosis (ICD-10 - M47.812) 02/09/2025 Myalgia of auxiliary muscles, head and neck (ICD-10 - M79.12) 03/09/2025 Myalgia of auxiliary muscles, head and neck (ICD-10 - M79.12) 04/08/2025 Lumbar post-laminectomy syndrome (ICD-10 - M96.1) 02/09/2025 Lumbar post-laminectomy syndrome (ICD-10 - M96.1) 04/08/2025 Neuropathy (ICD-10 - G62.9) 02/09/2025 Neuropathy (ICD-10 - G62.9) 03/09/2025 Lumbar post-laminectomy syndrome (ICD-10 - M96.1) 02/09/2025 extermination inspector (current) use of opiate analgesic (ICD-10 - Z79.891) 03/09/2025 Neuropathy (ICD-10 - G62.9) 04/08/2025 assisted (current) use of opiate analgesic (ICD-10 - Z79.891) 02/09/2025 Tobacco dependence (ICD-10 - F17.200) Spent greater than 7 minutes counseling patient on smoking cessation. They will make attempts to cut back. 04/08/2025 Tobacco dependence (ICD-10 - F17.200) 03/09/2025 extermination inspector (current) use of opiate analgesic (ICD-10 - Z79.891) 03/09/2025 Tobacco dependence (ICD-10 - F17.200) 02/09/2025 Spondylosis of lumbosacral region without myelopathy or radiculopathy (ICD-10 - M47.817) 03/09/2025 Spondylosis of lumbosacral region without myelopathy or radiculopathy (ICD-10 - M47.817) 02/09/2025 Lumbosacral radiculopathy (ICD-10 - M54.17) 03/09/2025 Lumbosacral radiculopathy (ICD-10 - M54.17) 02/09/2025 [...] Comp-7205 2 02/09/2025 Lumbosacral Spine Comp w/ Bending-30397 02/09/2025 Next Appt Details Provider Name:Geena Catalan, 06/01/2025 01:40:00 PM, [address] [place], [address], Insurance Providers Payer Name Payer Address Payer Phone Subscriber Number Group Number Insured Name Patient Relationship to Insured Coverage Start Date Coverage End Date RR Medicare [address] [address] [place] [address] [id number] Sergei Lucas Self - patient is the insured [employer] [facility] [employer] [address] [address] [place] [address] [id number] Sergei Lucas Self - patient is the [...]
--- OUTSIDE RECORDS SUMMARY | 2025-05-09 13:37 | XMS_ITS | Encounter Summary ---
Author Organization [facility] Address [address] [place] [address] Care Team Providers Care Senior Solutions Workflow Consultant Name Role Phone Agustina Whiting DO Primary Care Provider +1- [phone] Encounter Details Date Type Department Care Team (Latest Contact Info) Description 06/03/2001 Outpatient Historical [facility] Ortiz Hardwick MD [address] [place] [phone] BRONCHITIS NOS (Primary Dx) Social History Tobacco Use Types Packs/Day Years Used Date Smoking Tobacco: Never Assessed Sex and Gender Information Value Date Recorded Sex Assigned at Not on file Legal Sex Male 4:38 AM APPEALS COORDINATOR Gender Identity Not on file Sexual Orientation [...] documented as of this encounter Care Teams Senior Solutions Workflow Consultant Relationship Specialty Start Date End Date Agustina Whiting DO [address] [place] [address] PCP - General Family Practice 06/09/19 documented as of this encounter
--- OUTSIDE RECORDS SUMMARY | 2025-05-09 13:37 | XMS_ITS | Encounter Summary ---
Author Organization [facility] Address [address] [place] [address] Care Team Providers Care Child Study Team Director Name Role Phone Agustina Whiting DO Primary Care Provider +1- [phone] Encounter Details Date Type Department Care Team (Latest Contact Info) Description 05/22/2002 Outpatient Historical [facility] Ortiz Hardwick MD [address] [place] [phone] HYPERLIPIDEMIA NEC/NOS (Primary Dx) Social History Tobacco Use Types Packs/Day Years Used Date Smoking Tobacco: Never Assessed Sex and Gender Information Value Date Recorded Sex Assigned at Not on file Legal Sex Male 4:38 AM FERTILIZER APPLICATOR Gender Identity Not on file Sexual Orientation [...] documented as of this encounter Care Teams Child Study Team Director Relationship Specialty Start Date End Date Agustina Whiting DO [address] [place] [address] PCP - General Family Practice 06/09/19 documented as of this encounter
--- OUTSIDE RECORDS SUMMARY | 2025-05-09 13:37 | XMS_ITS | Encounter Summary ---
Author Organization [facility] Address [address] [place] [address] Care Team Providers Care Academic Computing Director Name Role Phone Agustina Whiting Primary Care Provider [phone] Encounter Details Date Type Department Care Team [...] AM CDT Legal Sex Male 8:20 AM PEDIATRIC GENETICIST Gender Identity Male 04/09/2024 9:07 AM CDT Sexual Orientation Straight 04/09/2024 9: 07 AM CDT documented as of this encounter Plan of Treatment Upcoming Encounters Date Type Department Care Team (Late st Contact Info) Description 06/16/2025 4:00 PM PEDIATRIC GENETICIST Office Visit [facility] [place] [address] [place] [phone] Agustina Whiting DO [address] [place] [address] 06/23/2025 1:10 PM PEDIATRIC GENETICIST Office Visit [facility] [place] [address] [place] [address] Latonia Clark MD [address] [place] [address] documented as of this encounter Visit Diagnoses Not on filedocumented in this encounter Additional Health Concerns Assessment Noted Time PHQ-9 Depression Total Score: 2 08/26/19 25 11:06 AM PEDIATRIC GENETICIST documented as of this encounter Care Teams Academic Computing Director Relationship Specialty Start Date End Date Agustina Whiting DO [address] [facility] [place] [phone] PCP - General Family Practice 06/09/19 documented as of this encounter
--- OUTSIDE RECORDS SUMMARY | 2025-05-09 13:37 | XMS_ITS | Encounter Summary ---
Author Organization [facility] Address [address] [place] [address] Care Team Providers Care Power Plant Operator Name Role Phone Agustina Whiting DO Primary Care Provider +1- [phone] Reason for Visit * Reason Comments Provider Call Encounter Details Date Type Department Care Team (Late st Contact Info) Description 12/01/2024 Telephone [facility] [place] [address] [place] [address] Agustina Whiting DO [address] [place] [address] Provider Call Social History Tobacco [...] AM CDT Legal Sex Male 8:20 AM NURSING UNIT COORDINATOR Gender Identity Male 04/09/2024 9:07 AM CDT Sexual Orientation Straight 04/09/2024 9: 07 AM CDT documented as of this encounter Miscellaneous Notes * Telephone Encounter - Cathy Mckinney LPN - 12/01/2024 4:52 PM CDT 12/01/2024 4:52 PM I called pt to advise him of message from October about diuretic change and pt said that his business support administrator called and changed his diuretic today and he is going today to pick it up but pt is not sure what it was changed to just that this dr discontinued the torsemide. Pt said he the nurse called him today and he told her about the weight gain and the nurse spoke with the business support administrator and calledhim back. Pt said his business support administrator is with [facility] in [place]. Pt says he is going to go with the changes that his [place] provider made. Pt will let clinic know tomorrow what changes this provider made when he stops by the clinic to sign ROSHAN paper. Cathy FLORES * Telephone Encounter - Geena Beal - 12/01/2024 2:50 PM CDT Copied from [facility] #[id number]. Topic: Gwyjeobr-Od-Jouivnmy Call >> December 01, 2024 2:47 PM Geena Cunningham wrote: Caller is requesting to speak with Clinical Care Team. Caller Name: [facility] Callback Number: [phone] Clinician Type: Home Health Co-worker Call Notes: Patient is up 5lbs (325 lbs) within last two days, increased shortness of breath with ambulation and had edema to abdomen and lower extremities. Is this addressing an immediate patient care need? No documented in this encounter Plan of Treatment Upcoming Encounters Date Type Department Care Team (Late st Contact Info) Description 06/16/2025 4:00 PM NURSING UNIT COORDINATOR Office Visit [facility] [place] [address] [place] [address] Agustina Whiting DO [address] [place] [phone] 06/23/2025 1:10 PM NURSING UNIT COORDINATOR Office Visit [facility] [place] [address] [place] [address] [place] [address] Latonia Clark MD [address] [place] [place] [address] [place] [address] documented as of this encounter Visit Diagnoses Not on filedocumented in this encounter Additional Health Concerns Assessment Noted Time PHQ-9 Depression Total Score: 2 08/26/19 25 11:06 AM NURSING UNIT COORDINATOR documented as of this encounter Care Teams Power Plant Operator Relationship Specialty Start Date End Date Agustina Whiting DO [address] [place] [phone] PCP - General Family Practice 06/09/19 documented as of this encounter
--- OUTSIDE RECORDS SUMMARY | 2025-05-09 13:37 | XMS_ITS | Encounter Summary ---
Author Organization [facility] Address [address] [place] [address] Care Team Providers Care Adobe Block Maker Name Role Phone Agustina Whiting DO Primary Care Provider [phone]- [phone] Encounter Details Date Type Department Care Team (Latest Contact Info) Description 05/08/2002 Outpatient Historical [facility] Ortiz Hardwick MD [address] [place] [address] AFTERCARE CORRECTION USE MEDICATN (Primary Dx) Social History Tobacco Use Types Packs/Day Years Used Date Smoking Tobacco: Never Assessed Sex and Gender Information Value Date Recorded Sex Assigned at Not on file Legal Sex Male 4:38 AM ESTIMATOR AND DRAFTER SUPERVISOR Gender Identity Not on file Sexual Orientation [...] documented as of this encounter Care Teams Adobe Block Maker Relationship Specialty Start Date End Date Agustina Whiting DO [address] [place] [address] PCP - General Family Practice 06/09/19 documented as of this encounter
--- OUTSIDE RECORDS SUMMARY | 2025-05-09 13:37 | XMS_ITS | Clinical Summary ---
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
--- OUTSIDE RECORDS SUMMARY | 2025-05-09 13:37 | XMS_ITS | Clinical Summary ---
Author Organization [facility] Address [address] [place] [address] Phone Care Team Providers Care Mandrel Press Hand Name Role Phone Agustina Whiting DO Primary Care Provider Allergies Active Allergy Reactions Criticality Noted Date Comments Allerg Ext,Grass Pollen-Redtop Other (See Comments) 06/26/2022 Phenergan Plain Anaphylaxis High 03/21/2019 Churdan Rash Low 08/27/2023 Medications Narcan 4 mg/actuation Weir, Non-Aerosol 04/06/20 22 Active citalopram (CeleXA) 40 [...] bedtime. 60 mL 10/30/19 25 Active Insulin [place], Disposable, (BD Ultra-Fine Short Pen Needle) 31 [...] 25 Active fluticasone propionate (FLONASE) 50 mcg/spray [place], Suspension nasal inhalerIndicati ons:Chronic vasomotor rhinitis Use 2 sprays in each nostril daily 16 Gram 2 04/23/20 25 Active ipratropium bromide (ATROVENT) 42 mcg (0.06 %) Weir, Non-AerosolIndi cations:Chronic vasomotor rhinitis Use 2 sprays into each nostril twice daily 15 mL 2 04/23/20 25 Active fluticasone propionate (FLONASE) 50 mcg/spray Weir, Suspension nasal inhalerIndicati ons:Chronic vasomotor rhinitis Use 2 sprays in each nostril daily 16 Gram 11 06/22/20 24 2024 Discontinued ipratropium bromide (ATROVENT) 42 mcg (0.06 %) Weir, Non-AerosolIndi cations:Chronic vasomotor rhinitis Use 2 sprays [...] type 2 diabetes mellitus 01/27/2023 Atherosclerosis of [place] co ronary artery of [place] heart without angina pectoris 11/05/2022 Arthritis due [...] Data STL ABSTRACTION Provider, Abstract 04/23/2025 Refill [facility] [address] [place] [address] Agustina Whiting, Chronic vasomotor rhinitis 04/23/2025 Refill [facility] [address] [place] [address] Joao Alonso, LUBNA Chronic vasomotor rhinitis 04/13/2025 External Device Data STL ABSTRACTION Provider, Abstract 03/24/2025 Refill [facility] [address] [place] [address] Agustina Whiting DO Mixed simple and mucopurulent chronic bronchitis ([facility]) 03/17/2025 External Device Data STL ABSTRACTION Provider, Abstract 03/09/2025 Results Follow-Up [facility] [address] [facility] [place] [phone] Diaz, October, MEDIA RELATIONS MANAGER XR KNEE 3 VW LEFT, POC URINALYSIS DIPSTICK AUTOMATED, URINE CULTURE 03/08/2025 4:49 PM CDT - 03/08/2025 11:59 PM CDT Hospital Encounter [facility] [place] [address] [place] [address] October, MEDIA RELATIONS MANAGER Discharge Disposition: Home or Self Care 03/08/2025 4:00 PM CDT Office Visit [facility] [address] [place] [address] October, MEDIA RELATIONS MANAGER UTI symptoms (Primary Dx); Benign prostatic hyperplasia with urinary frequency; Acute pain of left knee 03/08/2025 Refill [facility] [address] [place] [address] October, Benign prostatic hyperplasia with urinary frequency 03/08/2025 Nurse Triage [place] [address] [place] [address] Agustina Whiting DO 03/08/2025 Results Follow-Up [facility] [address] [place] [address] October, MEDIA RELATIONS MANAGER HEMOGLOBIN A1C, CBC WITH DIFFERENTIAL, COMPREHENSIVE METABOLIC PANEL, Additional followed-up results: 3 03/08/2025 Orders Only [facility] [place] [address] [place] [address] October, MEDIA RELATIONS MANAGER Iron 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 (Primary Dx) 03/05/2025 10:00 AM CDT Office Visit [facility] [address] [place] [address] October, MEDIA RELATIONS MANAGER Chronic respiratory failure with hypoxia and hypercapnia [...] Data STL ABSTRACTION Provider, Abstract 02/12/2025 Refill [facility] [address] [place] [address] Agustina Whiting DO Mixed simple and mucopurulent chronic bronchitis (CMS/HCC) 02/09/2025 10:13 AM CDT - 02/09/2025 11:59 PM CDT Hospital Encounter [facility] [address] [place] [address] Geena Lai MD Discharge Disposition: Home or Self Care 02/09/2025 10:12 AM CDT - 02/09/2025 11:59 PM CDT Hospital Encounter [facility] [address] [place] [address] Geena Lai MD Discharge Disposition: Home or Self Care 02/09/2025 Orders Only [facility] Admitting [address] [facility] [address] [place] [address] Geena Lai MD Lumbosacral spondylosis without myelopathy (Primary Dx); Cervical spondylosis 02/08/2025 Refill [facility] [address] [place] [address] Agustina Whiting DO from Last 3 Months [...] AM CDT Legal Sex Male 8:20 AM DATA WAREHOUSE ADMINISTRATOR Gender Identity Male 04/09/2024 9:07 AM CDT [...] st Contact Info) Description 06/16/2025 4:00 PM DATA WAREHOUSE ADMINISTRATOR Office Visit [facility] [address] [place] [address] Agustina Whiting, DO [address] [place] [address] 06/23/2025 1:10 PM DATA WAREHOUSE ADMINISTRATOR Office Visit [facility] [place] [address] [place] [phone] Latonia Clark MD [address] [place] [address] Health Maintenance Due Date Last [...] polyneuropathy, with long-term current use of insulin ([facility]/HCC) TSH Routine 03/05/2025 10:26 AM CDT Type 2 diabetes mellitus with diabetic polyneuropathy, with long-term current use of insulin (CMS/[facility]) COMPREHENSIVE METABOLIC PANEL Routine 03/05/2025 10:26 AM CDT Type 2 diabetes mellitus with diabetic polyneuropathy, with long-term current use of insulin (CMS/HCC) CBC WITH DIFFERENTIAL Routine 03/05/2025 10:26 AM CDT Type 2 diabetes mellitus with diabetic polyneuropathy, with long-term current use of insulin (CMS/[facility]) HEMOGLOBIN A1C Routine 03/05/2025 10:26 AM CDT [...] disease, with long-term current use of insulin ([facility]) HM DIABETES EYE EXAM Routine 06/15/2021 ENDOSCOPY, [...] No acute osseous abnormality is noted. October [facility] DIAGNOSTIC IMAGING ORDERABLES Fi nal Result * URINE CULTURE (03/08/2025 4:12 PM CDT) URINE CULTURE SEE NOTE [facility] Comment: CULTURE, URINE, ROUTINE Micro Number: [id number] Test Status: Final Specimen Source: Urine, clean catch Specimen Quality: Adequate Result: No Growth Test Performed at: [facility] [address] [place] [address] Bessie Thayer MD Urine URINE SPECIMEN OBTAINED BY CLEAN CATCH PROCEDURE / Unknown 03/08/2025 4:12 PM CDT 03/09/2025 4:13 AM CDT October MEDIA RELATIONS MANAGER MICROBIOLOGY - GENERAL ORDERABLE S Final Result [facility] [phone] [facility] [address] [place] [address] * (ABNORMAL) POC URINALYSIS DIPSTICK AUTOMATED (03/08/2025 3:44 PM CDT) COLOR UA POC Yellow Pale to Dark Yellow [facility] CLARITY UA POC Clear Clear, Other [facility] GLUCOSE UA POC 3+(A) Negative, Normal [facility] BILIRUBIN UA POC Negative Negative [facility] KETONES UA POC Negative Negative [facility] SPECIFIC GRAVITY UA POC <=1.005 1.000 - 1.030 [facility] BLOOD UA POC Negative Negative [facility] INCLUDE [facility] PH UA POC 5.5 5.0 - 8.0 [facility] IC [facility] PROTEIN UA POC Negative Negative [facility] UROBILINOGEN UA POC 0.2 <2.0 mg/dL [facility] NITRITE UA POC Negative Negative [facility] LEUKOCYTE ESTERASE UA POC Negative Negative [facility] KIT LOT NUMBER POC [id number] [facility] KIT EXP DATE POC [id number] [facility] Urine 03/08/2025 3:44 PM CDT October MEDIA RELATIONS MANAGER POINT OF CARE TESTING Final Resu lt [facility] CLIA# [id number] [address] [place] [address] * QUEST TEST IN QUESTION (ACTION NEEDED) (NO MY CHART) (03/05/2025 10:26 AM CDT) REPORT/SPECIMEN COMMENT [facility] Comment: Whole blood, unspun or partially spun gel barrier tube was received more than 6 hours since collection. A false elevation of K, Phos and LD as well as a false decrease in glucose may occur due to prolonged contact with red cells. Test Performed at: [facility] [address] [place] [address] Bessie Thayer MD 03/05/2025 10:2 6 AM CDT 03/06/2025 1:13 AM CDT October [facility] CHEMISTRY ORDERABLES Final Resul t [facility] [phone] [facility] [address] [place] [address] * (ABNORMAL) CBC WITH DIFFERENTIAL (03/05/2025 10:26 [...] [facility] Comment: Test Performed at: [facility] [address] [place] [address] Bessie Thayer MD Blood 03/05/2025 10:2 6 AM CDT 03/06/2025 1:13 AM CDT October [facility] HEMATOLOGY ORDERABLES Final Resu lt [facility] [phone] [facility] [address] [place] [address] * TSH (03/05/2025 10:26 AM CDT) TSH 0.79 0.40 - 4.50 mIU/L [facility] Comment: Test Performed at: [facility] [address] [place] [address] Bessie Thayer MD Blood 03/05/2025 10:2 6 AM CDT 03/06/2025 1:13 AM CDT October [facility] CHEMISTRY ORDERABLES Final Resul t [facility] [phone] [facility] [address] * (ABNORMAL) HEMOGLOBIN A1C (03/05/2025 10:26 AM CDT) HEMOGLOBIN A1C 8.5(H) <5.7 % [facility] Comment: For someone without known diabetes, [...] ESTIMATED AVERAGE GLUCOSE (MMOL/L) 10.9 mmol/L [facility] Comment: Test Performed at: [facility] [address] [facility] [place] [address] Bessie Thayer MD Blood 03/05/2025 10:2 6 AM CDT 03/06/2025 1:13 AM CDT October [facility] CHEMISTRY ORDERABLES Final Resul t [facility] [phone] [facility] [address] [facility] [place] [address] * (ABNORMAL) LIPID PANEL (03/05/2025 10:26 AM CDT) Pathologist [facility] CHOLESTEROL 195 <200 mg/dL [facility] [...] LDL-C. Javier RICH et al. LASHELL. 2013;310(19): 6451-8419 (http://education.[employer]/faq/EBT104) CHOL/HDL RATIO 5.3(H) <5.0 (calc) [facility] NON-HDL CHOLESTEROL 158(H) <130 mg/dL (calc) [facility] Comment: For patients with diabetes plus 1 major ASCVD risk factor, treating to a non-HDL-C goal of <100 mg/dL (LDL-C of <70 mg/dL) is considered a therapeutic option. Test Performed at: [facility] [address] [place] [address] Bessie Thayer MD Blood 03/05/2025 10:2 6 AM CDT 03/06/2025 1:13 AM CDT October [facility] CHEMISTRY ORDERABLES Final Resul t [facility] [phone] [facility] [address] [place] [address] * (ABNORMAL) COMPREHENSIVE METABOLIC PANEL (03/05/2025 10:26 AM CDT) GLUCOSE 110(H) 65 - 99 mg/dL [facility] Comment: Fasting reference interval For someone without known diabetes, a glucose value between 100 and 125 mg/dL is consistent with prediabetes and should be confirmed with a follow-up test. BUN 39(H) 7 - 25 mg/dL [facility] CREATININE 1.78(H) 0.70 - 1.30 mg/dL [facility] GFR 45(L) > OR = 60 [...] [facility] Comment: Test Performed at: [facility] [address] [place] [address] Bessie Thayer MD Blood 03/05/2025 10:2 6 AM CDT 03/06/2025 1:13 AM CDT October [facility] CHEMISTRY ORDERABLES Final Resul t [facility] [phone] [facility] [address] [place] [address] * XR LUMBAR SPINE W BENDING 6+VW [...] within a diagnostic category. Test Performed at: [facility] [address] [place] [address] Bessie Thayer MD Urine URINE SPECIMEN OBTAINED BY CLEAN CATCH PROCEDURE / Unknown 10/02/2024 1:09 PM CDT 10/03/2024 4:48 AM CDT us October Diaz MEDIA RELATIONS MANAGER URINE ORDERABLES Final Result [facility] [phone] [facility] [address] [place] [address] * DIABETES EYE EXAM (06/15/2021) us Abstract Provider HEALTH MAINTENANCE Final Resul t * (ABNORMAL) ENDOSCOPY, COLON, SCREENING (10/21/2017) us Abstract Provider GI PROCEDURE ORDERABLES Final Result from Last 3 Months or Most Recently Relevant to Health Maintenance Insurance MEDICARE RARadionomyROAD [facility] OPTIONS PPO [id number] MEDICARE RAILROAD [facility] OPTIONS PPO [id number] Care Teams Mandrel Press Hand Relationship Specialty Start Date End Date Agustina Whiting DO [address] [place] [address] PCP - General Family Practice 06/09/19
--- OUTSIDE RECORDS SUMMARY | 2025-05-09 13:37 | XMS_ITS | Encounter Summary ---
Author Organization [facility] Address [address] [place] [address] Care Team Providers Care Precision Lathe Operator Name Role Phone Agustina Whiting DO Primary Care Provider +1- [phone] Encounter Details Date Type Department Care Team (Latest Contact Info) Description 05/07/2002 Outpatient Historical [facility] Ortiz Hardwick MD [address] [place] [address] Routine medical exam (Primary Dx); Pain in limb; RESPIRATORY ABNORM NEC Social History Tobacco Use Types Packs/Day Years Used Date Smoking Tobacco: Never Assessed Sex and Gender Information Value Date Recorded Sex Assigned at Not on file Legal Sex Male 4:38 AM TEST PULLER Gender Identity Not on file Sexual Orientation [...] documented as of this encounter Care Teams Precision Lathe Operator Relationship Specialty Start Date End Date Agustina Whiting DO [address] [place] [phone] PCP - General Family Practice 06/09/19 documented as of this encounter
--- OUTSIDE RECORDS SUMMARY | 2025-05-09 13:37 | XMS_ITS | Encounter Summary ---
Author Organization [facility] Address [address] [place] [address] Care Team Providers Care Marketing Communications Manager Name Role Phone Agustina Whiting DO Primary Care Provider [phone]- [phone] Reason for Referral * Radiology Services (Routine) - Closed Specialty Diagnoses / Procedures Referred By Contac t Referred To Contact Radiology Diagnoses Bilateral inguinal hernia without obstruction or gangrene, recurrence not specified Procedures US EXT NON VASC LTD BI US PELVIS LIMITED NON OB US PELVIS COMPLETE Selin Salgado FNP Phone: tel: fax: [facility] Ultrasound [place] [address] [place] [address] Phone: tel: fax: Referral ID Status Reason Start Date Expiration Date V isits Requested Visits Authorized [id number] Closed VTN View CTS to Schedule 10/26/2020 11/26/2021 1 1 Encounter Details Date Type Department Care Team (Late st Contact Info) Description 12/08/2020 Ancillary Orders [facility] Medicine [place] [address] [place] [phone] Selin Salgado FNP [address] [place] [address] Bilateral inguinal hernia without obstruction [...] on file Legal Sex Male 4:38 AM HEAD OF SCIENCE Gender Identity Not on file Sexual Orientation [...] specified documented in this encounter Care Teams Marketing Communications Manager Relationship Specialty Start Date End Date Johanne, Agustina L, DO [address] [place] [address] PCP - General Family Practice 06/09/19 documented as of this encounter
[2025-05-09] MEDS: HYDROcodone-acetaminophen 5-325 mg Tablet 1 TAB PO ×2 (14:23→20:25)
--- NOTE | 2025-05-09 15:13 | PM.PN ---
Subjective Subjective: 54-year-old male admitted with hyperglycemia, hypotension and near syncope at home. He is placed the hospital under observation. He has acute kidney injury with BUN 31 creatinine 1.9 CK is 137. UA 11-20 white cells and leukocyte esterase trace. No bacteria and nitrate negative. 0-5 squamous cells. No red cells. Patient is on Bumex 2 mg 3 times daily at home, dapagliflozin and furosemide at home Patient states he was really sick 6 months ago and so he cut out all carbs no sugars, juice, soda. He has been using solely milk instead of milk. He states he has lost 40 pounds from 338 down to about 300 Vitals/I&O/Wt Last Vital Signs Temp 97.2 F L 05/09/25 14:00 Pulse 60 05/09/25 14:00 Resp 11 L 05/09/25 14:00 BP 188/63 05/09/25 14:00 Pulse Ox 95 05/09/25 14:00 O2 Del Method BiPAP 05/09/25 12:42 O2 Flow Rate 6 05/09/25 09:16 FiO2 28 05/09/25 13:42 05/09/25 05/09/25 05/09/25 06:59 14:59 22:59 Intake Total 31.5 / 33.0 773.75 / 773.75 Output Total 450 / 450 Balance 31.5 / 33.0 323.75 / 323.75 Weight last 48 hrs Weight 142.428 kg Weight 142.609 kg Physical Exam Narrative: General Well-developed morbidly obese male in no acute cardiopulmonary stress Oropharynx Mallampati 1 but narrowed and deep Neck no stridor CV regular rate and rhythm Lungs clear to auscultation bilaterally Abdomen positive bowel tones soft right upper quadrant is tender markedly tender initially and then on repeat exam still operator whiskey compared to other areas of the abdomen Calves trace pretibial edema skin is dry Data 05/09/25 04:00 05/09/25 04:00 Micro: Microbiology 05/08/25 22:35 Blood Culture - Preliminary Blood SPECIMEN COLLECTED 05/08/25 22:33 Blood Culture - Preliminary Blood SPECIMEN COLLECTED A&P Assessment and plan 1. Near syncope: Dehydrated with acute kidney injury and episode of hyperglycemia which she treated with high-dose insulin. We need to hold his diuretics. Patient states he is taking Bumex 3 times a day and it looks like the dose is 2 mg he is unsure on his other meds but thinks he might have been taking furosemide or torsemide and then also spironolactone. He thinks he is taking all 3 of them 2. TERRANCE (acute kidney injury): Hold diuretics and just dosage prior to discharge. Patient is 142 kg with a BMI of 47. Suspect he has sleep apnea 3. Acute hypotension: Resolved and now hypertensive. Patient has been asking for pain meds here. He is on pregabalin and also hydrocodone 5 mg tablets every 4 hours at home 4. Hyperglycemia: Carb consistent diet at 2100 earl a day and sliding scale insulin. Will give Lantus 40 units twice a day. 5. Right upper quadrant abdominal pain: LFTs are normal but he has had nausea with eating and tenderness in the right upper quadrant his gallbladder still intact. Will proceed with ultrasound right upper quadrant 6. Sleep apnea: Continue BiPAP. Patient uses CPAP at home 7. Morbid obesity with BMI of 45.0-49.9, adult: Patient reports already caloric restriction and losing weight 40 pounds in the last 4 months or at least 30 pounds. That is a good rate of weight loss 2 to 3 pounds a week will be on a caloric restricted diet here PDMP PDMP Reviewed: Not Reviewed Attestations Medical Necessity Statement*: Patient is hospitalized for stabilization of blood sugars and replacement IV fluids. Anticipate discharge tomorrow if ultrasound of the gallbladder is negative Coding Level of Care Code 82284 Diagnoses Near syncope R55 TERRANCE (acute kidney injury) N17.9 Acute hypotension I95.9 Hyperglycemia R73.9 Right upper quadrant abdominal pain R10.11 Sleep apnea G47.30 Morbid obesity with BMI of 45.0-49.9, adult E66.01; Z68.42 Time Spent (min) 35
[2025-05-09] MEDS: insulin glargine 100 units/1 mL 40 UNIT SUBCUT (15:36)
--- NOTE | 2025-05-09 16:35 | USR_ITS ---
PROCEDURE INFORMATION: Exam: US Abdomen, Limited; Right Upper Quadrant Exam date and time: 05/09/2025 6:01 PM Age: 54 years old Clinical indication: Abdominal pain; Localized; Right upper quadrant (ruq); Prior surgery; Surgery date: 6+ months; Surgery type: Unsure of dates. Patient has history of lap band surgery; Additional info: Abdominal pain and nausea, last ate 7 am TECHNIQUE: Imaging protocol: Real time ultrasound of the abdomen with image documentation. Limited exam focused on the right upper quadrant. COMPARISON: US gall bladder [id number] 01/16/2023 3:10 PM FINDINGS: Liver: Mild hepatomegaly. Echogenic, consistent with fatty infiltration. Gallbladder: No gallstones. No gallbladder wall thickening or pericholecystic fluid. Negative sonographic Aguirre's sign, as per the performing research and development manager. Biliary ducts: No stones. No ductal dilatation. Pancreas: Unremarkable as visualized. Right kidney: No mass. No definite stones. No hydronephrosis. US/US gall bladder [id number] IMPRESSION: Mildly enlarged, fatty liver.
[2025-05-10] VITALS (15 sets, daily range): BP systolic 137–169; BP diastolic 59–129; PULSE 55–65; RESP 12–20; TEMP 36.6–36.7; O2SAT 95–99; BMI 48.1
[2025-05-10] MEDS: HYDROcodone-acetaminophen 5-325 mg Tablet 1 TAB PO (01:34)
[2025-05-10] MEDS: heparin 5,000 unit/mL INJ 1 mL 5000 UNIT SUBCUT (02:49)
[2025-05-10 05:21] LABS: Anion Gap 15.0 (5-19); Blood Urea Nitrogen 24 mg/dL (6-20); Calcium 8.7 mg/dL (8.5-10.5); Carbon Dioxide 28 mmol/L (22-29); Chloride 101 mmol/L (98-107); Creatinine Clr Calc Pharmacy 83.9865; Glucose 142 mg/dL (65-115); Osmolality Calculated 296 mOsm/kg (285-295); Potassium 4.0 mmol/L (3.5-5.1); Sodium 140 mmol/L (136-145)
--- NOTE | 2025-05-10 06:54 | PC.NURSE ---
Lyrica: Patient expressed need for home dose of lyrica, Dr. Pittman gave telephone orders to give 200mg PO Lyrica.
--- NOTE | 2025-05-10 14:59 | P.DS_ITS ---
Discharge Providers Date of Admission: 05/09/25 01:50 Date of Discharge: May 10, 2025 Attending Provider at Admission: Janet Pittman MD Attending Provider at Discharge: Kevin Alonso MD Primary Care Provider: Agustina Whiting DO Diagnoses at Discharge Discharge Diagnosis 1. Near syncope: Details from hospital stay: Due to dehydration and hypotension from overdiuresis 2. TERRANCE (acute kidney injury): Details from hospital stay: Due to dehydration and hypotension from overdiuresis 3. Acute hypotension: Details from hospital stay: Due to overdiuresis 4. Hyperglycemia: Details from hospital stay: Patient required only 40 units of insulin Lantus twice a day and sliding scale. Decreased his home insulin to 60 units twice a day and he needs to follow weight loss diet 5. Right upper quadrant abdominal pain: Details from hospital stay: Ultrasound negative and resolved. No cholecystitis patient does have fatty liver 6. Sleep apnea: Details from hospital stay: Resume home BiPAP 7. Morbid obesity with BMI of 45.0-49.9, adult: Details from hospital stay: Continue on weight loss diet Reason for Visit Reason for Visit: DIZZY Brief History: Sergei Lucas is a 54 year old male with medical history significant for diabetes hypertension obstructive sleep apnea who had presented to the emergency room early hours of this morning following a near syncopal event at home for further optimization and evaluation of his presentation. Yesterday mowed the lawn and morning of admission, he went to grocery and bought some things and the n came home patient felt very thirsty and went to the fridge to get something to drink and almost passied out and tried to sit down without falling. Patient checked the blood sugar it was over 400 he gave himself a high dose insulin at that point he called for EMS to get him to the hospital for further care. At the emergency room serum Accu-Chek was in the 200s. Systolic blood pressure was 64. Patient was given fluid boluses, had normal lactate no chest pain no shortness of breath no troponin as delta troponin was negative chest x- ray did not show acute process no pneumonia Patient responded to IV fluid blood pressure came up to 141/75 patient had no confusion or fever. Was admitted for acute kidney injury and dehydration Patient had abdominal pain and tenderness so ultrasound was done which showed just fatty liver no gallstones or gallbladder wall thickening Hospital Course Hospital Course 54-year-old male admitted with hyperglycemia, hypotension and near syncope at home. He is placed the hospital under observation. He has acute kidney injury with BUN 31 creatinine 1.9 CK is 137. UA 11-20 white cells and leukocyte esterase trace. No bacteria and nitrate negative. 0-5 squamous cells. No red cells.Patient is on Bumex 2 mg 3 times daily at home, dapagliflozin and furosemide 80 mg twice a day though recently not taking that 1 at home Patient states he was really sick 6 months ago and so he cut out all carbs no sugars, juice, soda. He has been using solely milk instead of milk. He states he has lost 40 pounds from 338 down to about 300 Patient with polypharmacy and recent significant weight loss make him more sensitive to his medications. He was overdiuresed outpatient and was infused 6 L of fluid. He did have good urine output. Renal function has markedly improved. Blood sugars have been stable. Patient is steady on his feet I counseled him regarding need for decrease in his diuretics. Additionally he needs to decrease his insulin so that he can eat less and continue with his weight loss. Physical Exam Narrative: General Well-developed morbidly obese male in no acute cardiopulmonary stress Oropharynx Mallampati 2 but narrowed and deep Neck no stridor CV regular rate and rhythm Lungs clear to auscultation bilaterally Abdomen positive bowel tones soft no abdominal tenderness today Calves trace pretibial edema skin is dry Discharge Data Studies Completed and Pending Completed Studies During Hospitalization Category Date Time Status CT head wo con* [id number] Stat Cat Scan 05/08/25 22:21 Completed XR chest 1V portable [id number] Stat Exams 05/08/25 22:21 Completed CV. echo wo/w contrast [id number] Routine Ultrasound 05/09/25 07:23 Completed US gall bladder [id number] Routine Ultrasound 05/09/25 16:35 Completed Pending at discharge Category Date Time Status Blood Culture Stat Lab 05/08/25 22:35 Results Radiology Impressions Chest X-Ray 05/08/25 22:21 IMPRESSION: No acute findings. Head CT 05/08/25 22:21 IMPRESSION: No acute intracranial abnormality. Gallbladder Ultrasound 05/09/25 16:35 IMPRESSION: Mildly enlarged, fatty liver. Laboratory Results WBC 9.91 10^3/uL (3.29-11.43) 05/09/25 04:00 RBC 4.27 10^6/uL (3.85-5.65) 05/09/25 04:00 Hgb 11.90 g/dL (11.27-16.99) 05/09/25 04:00 Hct 39.2 % (37-53) 05/09/25 04:00 MCV 91.8 fl (82-101) 05/09/25 04:00 MCH 27.9 pg (27-33) 05/09/25 04:00 MCHC 30.4 g/dL (30-55) 05/09/25 04:00 RDW 15.9 % (12.1-15.1) H 05/09/25 04:00 Plt Count 244 10^3/cmm (157-399) 05/09/25 04:00 MPV 10.5 fL (7.4-10.4) H 05/09/25 04:00 Neut % (Auto) 63.1 % 05/09/25 04:00 Lymph % (Auto) 27.4 % 05/09/25 04:00 [place] % (Auto) 7.1 % 05/09/25 04:00 Eos % (Auto) 1.2 % 05/09/25 04:00 Baso % (Auto) 0.6 % 05/09/25 04:00 Neut # (Auto) 6.25 10^3/uL (1.8-7.7) 05/09/25 04:00 Lymph # (Auto) 2.7 10^3/uL (0.8-4.8) 05/09/25 04:00 [place] # (Auto) 0.7 10^3/uL (0.2-0.9) 05/09/25 04:00 Eos # (Auto) 0.1 10^3/uL (0.0-0.8) 05/09/25 04:00 Baso # (Auto) 0.1 10^3/uL (0.0-0.1) 05/09/25 04:00 Nucleated RBC % (auto) 0 % 05/09/25 04:00 Nucleated RBCs # 0.0 /100WBC 05/09/25 04:00 ESR 35 mm/hr (0-10) H 05/09/25 04:00 PT 13.20 SECONDS (12.1-14.9) 05/08/25 22:00 INR 0.94 (0.8-1.2) 05/08/25 22:00 APTT 26.1 SECONDS (23.9-36.7) 05/08/25 22:00 Specimen Type Arterial 05/08/25 23:08 Sample Site Radial, left 05/08/25 23:08 ABG pH 7.39 (7.35-7.45) 05/08/25 23:08 ABG pCO2 50.8 mmHg (35-45) H 05/08/25 23:08 ABG pO2 84.5 mmHg (80.0-100.0) 05/08/25 23:08 ABG PO2/FiO2 Ratio 211 05/08/25 23:08 ABG HCO3 30.8 mmol/L (22-26) H 05/08/25 23:08 ABG Base Excess 4.8 mmol/L (-2.0-2.0) H 05/08/25 23:08 Adalberto Test Pos 05/08/25 23:08 Hematocrit 36.8 % (42-52) L 05/08/25 23:08 O2 Delivery Device Nc 05/08/25 23:08 O2 Liters/Min 6.0 % 05/08/25 23:08 FiO2 40.0 % 05/08/25 23:08 Special Certificate Dictator ID [email or web address] 05/08/25 23:08 Sodium 140 mmol/L (136-145) 05/10/25 04:29 Potassium 4.0 mmol/L (3.5-5.1) 05/10/25 04:29 Chloride 101 mmol/L (98-107) 05/10/25 04:29 Carbon Dioxide 28 mmol/L (22-29) 05/10/25 04:29 Anion Gap 15.0 (5-19) 05/10/25 04:29 BUN 24 mg/dL (6-20) H 05/10/25 04:29 Creatinine 1.4 mg/dL (0.7-1.2) H 05/10/25 04:29 GFR Calculation 52.8 mL/min (90-130) L 05/10/25 04:29 Glucose 142 mg/dL (65-115) H 05/10/25 04:29 POC Glucose 141 mg/dL (70-110) H 05/10/25 11:46 Estimat Average Glucose 189 05/09/25 04:00 Hemoglobin A1c 8.2 % (4.0-6.0) H 05/09/25 04:00 Calculated Osmolality 296 mOsm/kg (285-295) H 05/10/25 04:29 Lactic Acid 2.1 mmol/L (0.5-2.2) 05/08/25 22:00 Lactic Acid (Sepsis) 1.4 mmol/L (0.5-2.2) 05/09/25 00:55 Calcium 8.7 mg/dL (8.5-10.5) 05/10/25 04:29 Phosphorus 4.5 mg/dL (2.5-4.5) 05/09/25 04:00 Magnesium 2.0 mg/dL (1.7-2.3) 05/09/25 04:00 Total Bilirubin 0.2 mg/dL (0.15-1.2) 05/09/25 04:00 AST 14 U/L (0-40) 05/09/25 04:00 ALT 11 U/L (0-41) 05/09/25 04:00 Alkaline Phosphatase 107 U/L (40-130) 05/09/25 04:00 Creatine Kinase 137 U/L (39-308) 05/09/25 04:00 Troponin T Baseline 21 ng/L (0-15) H 05/08/25 22:00 Troponin T 120 Minute 19.61 ng/L (0-15) H 05/09/25 00:09 Delta Troponin T -1.39 ABS# (0-10) L 05/09/25 00:09 Troponin T Hi Sens 6Hr 18.53 ng/L (0-15) H 05/09/25 04:00 Troponin T Hi Sens 6Hr Delta -2.47 ng/L (0-12) L 05/09/25 04:00 C-Reactive Protein 42.2 mg/L (0.0-4.9) H 05/09/25 04:00 NT-Pro-B Natriuret Pep 46 pg/mL (0-125) 05/08/25 22:00 Total Protein 6.0 g/dL (6.6-8.7) L 05/09/25 04:00 Albumin 3.7 g/dL (3.5-5.2) 05/09/25 04:00 Globulin 2.3 g/dL (1.3-4.6) 05/09/25 04:00 Urine Color Yellow (Yellow) 05/09/25 00:19 Urine Appearance Clear (CLEAR) 05/09/25 00:19 Urine pH 6.0 (5-7) 05/09/25 00:19 Ur Specific [place] 1.012 (1.005-1.030) 05/09/25 00:19 Urine Protein Negative (Negative) 05/09/25 00:19 Urine Glucose (UA) 3+ (Normal) H 05/09/25 00:19 Urine Ketones Negative (Negative) 05/09/25 00:19 Urine Blood Negative (Negative) 05/09/25 00:19 Urine Nitrate Negative (Negative) 05/09/25 00:19 Urine Bilirubin Negative (Negative) 05/09/25 00: Urine Urobilinogen 0.2 mg/dL (Negative) 05/09/25 00:19 Ur Leukocyte Esterase Trace (Negative) A 05/09/25 00:19 Urine RBC 0-2 /hpf (0-2) 05/09/25 00:19 Urine WBC 11-20 /hpf (0-5) H 05/09/25 00:19 Ur Squamous Epith Cells 0-5 /hpf (0-5) 05/09/25 00:19 Amorphous Sediment Not Reportable 05/09/25 00:19 Urine Bacteria None seen /hpf (NONE) 05/09/25 00:19 Hyaline Casts 1.21 /lpf 05/09/25 00:19 Urine Opiates Screen Negative ng/mL (Negative) 05/09/25 00:19 Ur Barbiturates Screen Negative ng/mL (Negative) 05/09/25 00:19 Ur Phencyclidine Scrn Negative ng/mL (Negative) 05/09/25 00:19 Ur Amphetamines Screen Negative ng/mL (Negative) 05/09/25 00:19 U Benzodiazepines Scrn Negative ng/mL (Negative) 05/09/25 00:19 Urine Cocaine Screen Negative ng/mL (Negative) 05/09/25 00:19 U Marijuana (THC) Screen Negative ng/mL (Negative) 05/09/25 00:19 Blood Type Cancelled 05/08/25 22:33 Rho(D) Type Cancelled 05/08/25 22:33 Antibody Screen Cancelled 05/08/25 22:33 Vitals Last Vital Signs Temp 98.1 F 05/10/25 04:00 Pulse 62 05/10/25 13:00 Resp 18 05/10/25 13:00 BP 151/77 05/10/25 11:00 Pulse Ox 96 05/10/25 13:00 O2 Del Method Nasal Cannula 05/10/25 04:00 O2 Flow Rate 2 05/10/25 04:00 FiO2 28 05/10/25 00:15 Discharge Plan Discharge Patient Disposition: Home Condition: Stable Prescriptions: New acetaminophen 325 mg Tablet 650 mg PO Q6H PRN (Reason: Mild/Mod Pain Or Temp >/= 101) Qty: 60 0RF docusate sodium 100 mg Capsule 100 mg PO BID Qty: 60 0RF Continued pregabalin [Lyrica] 200 mg capsule 200 mg PO Q12H montelukast 10 mg tablet 10 mg PO DAILY (DME) Diabetic shoes with 3 inserts See Rx Instructions .Route .MEDSUPPLY Qty: 1 0RF Rx Instructions: As directed by [facility] lamotrigine 200 mg tablet 200 mg PO .DAILY@10AM Qty: 90 0RF quetiapine [Seroquel] 100 mg tablet 100 mg PO BEDTIME Qty: 90 0RF trazodone 300 mg tablet 300 mg PO BEDTIME Qty: 90 0RF ipratropium bromide 42 mcg (0.06 %) spray,non-aerosol 1 spray INTRANASAL DAILY fluticasone propionate 50 mcg/actuation spray,suspension 2 spray INTRANASAL DAILY cetirizine [Zyrtec] 10 mg Tablet 10 mg PO DAILY diphenhydramine HCl [Benadryl Allergy] 25 mg Tablet 25 mg PO BID PRN (Reason: Allergy Symptoms) albuterol sulfate 90 mcg/actuation HFA aerosol inhaler 2 puff inhalation .Q4-6H PRN (Reason: Shortness Of Breath) atorvastatin 40 mg tablet 40 mg PO DAILY hydrocodone-acetaminophen 5-325 mg tablet 1 tab PO .Q4-6H PRN (Reason: Pain) pantoprazole 40 mg tablet,delayed release (DR/EC) 40 mg PO BID dapagliflozin propanediol [Farxiga] 10 mg tablet 10 mg PO DAILY insulin lispro [Humalog U-100 Insulin] 100 unit/mL Solution See Rx Instructions .ROUTE .COMPLEX Qty: 5 0RF Rx Instructions: Use per sliding scale. bs 141-180 4u,181-220 6u,221-260 8u,261-300 10u,301- 350 12u, 351-400 14u, >400 16u tamsulosin 0.4 mg capsule 0.8 mg PO QPM sacubitril-valsartan [Entresto] 24-26 mg tablet 1 tab PO BID tizanidine 4 mg tablet 4 mg PO Q4H PRN (Reason: Pain) Changed bumetanide 2 mg tablet 2 mg PO DAILY Qty: 30 0RF citalopram 40 mg tablet 20 mg PO .@10PM Qty: 90 0RF prazosin 5 mg capsule See Rx Instructions .ROUTE .COMPLEX Qty: 90 0RF Dose Instruction: Take 1 capsule by mouth at bedtime Rx Instructions: stop the 2mg tablet Humulin 70/30 U-100 KwikPen 100 unit/mL (70-30) insulin pen 80 unit SUBCUT 2XD Qty: 15 0RF Discontinued furosemide 40 mg tablet 80 mg PO BID prazosin 2 mg capsule See Rx Instructions .ROUTE .COMPLEX Qty: 90 0RF Dose Instruction: Take 1 capsule by mouth at bedtime Rx Instructions: Take 1 capsule by mouth at bedtime along with 5 mg to=7mg total Discharge Order = DC NOW: Discharge Order (Routine); Ordered 05/10/25 Ordered By: Kevin Alonso Other Ambulatory Orders: Basic Metabolic Panel (Routine) Timeframe: 1 Week Facility: [facility] - Location: Lab - Main Lab Ordered By: Kevin Alonso Referrals: Jessy Plata [Referring] - 7-10 days Agustina Whiting DO [Primary Care Provider, Family Practice] - 7-10 days Discharge Diet: Cardiac, Diabetic and Low Salt Patient Instructions: Opioid Safety, Patient Portal & [place] Instructions Activity Restrictions/Additional Instructions: Weight yourself on arrival home to obtain accurate weight on your scale. You are still little dehydrated and anticipate that you will gain 2 or 3 pounds of water weight still. You can restart your Bumex at 2 mg a day and if gaining water weight despite that increase it to 2 mg twice a day. Follow-up with your heart failure doctor to adjust your diuretics as you are on too much. I think this occurred because you have lost weight and your doses now will need to be smaller. Follow a 2000-calorie diabetic weight loss diet with low sodium. Wear your BiPAP nightly I do not know what your potassium doses because it is not listed 2 mg once a day from 3 times a day so you should decrease your potassium from what ever it was to one third the dose if you have to take Bumex extra dose then you would take an extra dose of the potassium as well Decrease your Humulin 70/30 to 60 units twice a day and try to decrease your calories to have blood sugars 100-200 within that dose of insulin You need to have your kidney function and potassium checked in 1 week Discharge Attestations Time Spent in Discharge Care*: greater than 30 min Time Spent in Smoking Cessation: Not a smoker Quality Metrics Clinical Quality Measures [ No reported AMI, CVA or VTE this stay] Coding Level of Care Code 09871 Diagnoses Near syncope R55 TERRANCE (acute kidney injury) N17.9 Acute hypotension I95.9 Hyperglycemia R73.9 Right upper quadrant abdominal pain R10.11 Sleep apnea G47.30 Morbid obesity with BMI of 45.0-49.9, adult E66.01; Z68.42 Time Spent (min) 45
== END 2025-05-10 16:50 | disposition home or self-care (01) ==
LOC: ER 05-09 02:22 → ER IP 05-09 03:32 → ICU 05-09 13:35
PROVIDERS: Physician Assistant; Admitting Provider Internal Medicine; Emergency Provider Emergency Medicine; PCP Family Medicine; Visit Provider Internal Medicine
DX: R55 Syncope and collapse (principal); N17.9 Acute kidney failure, unspecified; E11.9 Type 2 diabetes mellitus without complications; I95.9 Hypotension, unspecified; G47.30 Sleep apnea, unspecified; E66.01 Morbid (severe) obesity due to excess calories; Z68.42 Body mass index [BMI] 45.0-49.9, adult; Z79.4 Long term (current) use of insulin; Z79.891 Long term (current) use of opiate analgesic; K21.9 Gastro-esophageal reflux disease without esophagitis; F43.12 Post-traumatic stress disorder, chronic
CPT/HCPCS: 36415; 36416; 36600; 70450; 71045; 76705; 80048; 80053; 80306; 81001; 82550; 82803; 82962; 83036; 83605; 83735; 83880; 84100; 84484; 85025; 85610; 85651; 85730; 86140; 86850; 86900; 87040; 93005; 94660; 96361; 96365; 96366; 96372; 96375; 99291; 99292; C8929; G0378; J1644; J1815; J2312; J7030; J7120; J9999